=== PATIENT | male | born 1945 | race Two or more races ===

== ENCOUNTER 2017-05-21 18:22 | Emergency (ER) | payer MEDICARE, OTHER ==
[2017-05-21 18:30] VITALS: BP 133/55; PULSE 60; TEMP 97.5; BMI 26.4
[2017-05-21] MEDS ORDERED: HEMOQUE TEST 1 EACH EACH ONE (19:30)
--- NOTE | 2017-05-21 19:39 | PDOC ---
History of Present Illness - General History Source: Patient Exam Limitations: No Limitations - History of Present Illness Initial Comments: The patient is a 71 yo M with a past medical history significant for DM who presents from [facility] with a blood sugar of 77. The patient states the practitioner insisted that the patient be brought here. The patient has no complaints at this time. No nausea, vomiting and diarrhea. No chest pain, headache or SOB. The patient was found to have a 99 blood glucose here. The patient denies abdominal pain. <Lani Rosa - Last Filed: 05/21/17 19:42> - General History Source: Patient, Care Provider <Rick Jackman - Last Filed: 05/21/17 19:57> - General Chief Complaint: Blood Sugar Problem Stated Complaint: BLOOD SUGAR PROBLEM Time Seen by Provider: 05/21/17 19:35 Past History <Lani Rosa - Last Filed: 05/21/17 19:42> - Psycho/Social/Smoking Cessation Hx Suicidal Ideation: No Smoking History: Never smoked Hx Alcohol Use: No Drug/Substance Use Hx: No <Rick Jackman - Last Filed: 05/21/17 19:57> - Past Medical History Allergies/Adverse Reactions: Allergies Allergy/AdvReac Type Severity Reaction Status Date / Time ciprofloxacin Allergy Verified 05/21/17 18:26 Home Medications: Ambulatory Orders Unobtainable [Unobtainable] 05/21/17 Review of Systems - Review of Systems Able to Perform ROS?: Yes Comments:: CONSTITUTIONAL: Absent: fever, chills, diaphoresis, generalized weakness, malaise, loss of appetite HEENT: Absent: rhinorrhea, nasal congestion, throat pain, throat swelling, difficulty swallowing, mouth swelling, ear pain, eye pain, visual Changes CARDIOVASCULAR: Absent: chest pain, syncope, palpitations, irregular heart rate, lightheadedness , peripheral edema RESPIRATORY: Absent: cough, shortness of breath, dyspnea with exertion, orthopnea, wheezing, stridor, hemoptysis GASTROINTESTINAL: Absent: abdominal pain, abdominal distension, nausea, vomiting, diarrhea, constipation, melena, hematochezia GENITOURINARY: Absent: dysuria, frequency, urgency, hesitancy, hematuria, flank pain, genital pain MUSCULOSKELETAL: Absent: myalgia, arthralgia, joint swelling SKIN: Absent: rash, itching, pallor HEMATOLOGIC/IMMUNOLOGIC: Absent: easy bleeding, easy bruising, lymphadenopathy, frequent infections ENDOCRINE: Absent: unexplained weight gain, unexplained weight loss, heat intolerance, cold intolerance NEUROLOGIC: Absent: headache, focal weakness or paresthesias, dizziness, unsteady gait, seizure, mental status changes, bladder or bowel incontinence PSYCHIATRIC: Absent: anxiety, depression, suicidal or homicidal ideation, hallucinations. <Lani Rosa - Last Filed: 05/21/17 19:42> *Physical Exam - Vital Signs Last Vital Signs Temp Pulse Resp BP Pulse Ox 97.5 F L 60 18 133/55 98 05/21/17 18:28 05/21/17 18:28 05/21/17 18:28 05/21/17 18:28 05/21/17 18:28 - Physical Exam Comments: GENERAL: Well developed, well nourished. Awake and alert. No acute distress. Patient is in wheelchair. HEENT: Normocephalic, atraumatic. PERRLA, EOMI. No conjunctival pallor. Sclera are non- icteric. Moist mucous membranes. Oropharynx is clear. NECK: Supple. Full ROM. No JVD. Carotid pulses 2+ and symmetric, without bruits. No thyromegaly. No lymphadenopathy. CARDIOVASCULAR: Regular rate and rhythm. No murmurs, rubs, or gallops. Distal pulses are 2+ and symmetric. PULMONARY: No evidence of respiratory distress. Lungs clear to auscultation bilaterally. No wheezing, rales or rhonchi. ABDOMINAL: Soft. Non-tender. Non-distended. No rebound or guarding. No organomegaly. Normoactive bowel sounds. MUSCULOSKELETAL Normal range of motion at all joints. No bony deformities or tenderness. No CVA tenderness. EXTREMITIES: No cyanosis. No clubbing. No edema. No calf tenderness. Slight contraction of UE. SKIN: Warm and dry. Normal capillary refill. No rashes. No jaundice. NEUROLOGICAL: No gross focal neurological deficits. PSYCHIATRIC: Cooperative. Good eye contact. Appropriate mood and affect. <Lani Rosa - Last Filed: 05/21/17 19:42> - Vital Signs Last Vital Signs Temp Pulse Resp BP Pulse Ox 97.5 F L 60 18 133/55 98 05/21/17 18:28 05/21/17 18:28 05/21/17 18:28 05/21/17 18:28 05/21/17 18:28 <Rick Jackman - Last Filed: 05/21/17 19:57> Medical Decision Making - Medical Decision Making 05/21/17 19:42 Dr. Jackman: The scribe's documentation has been prepared under my direction and personally reviewed by me in its entirery. I confirm that the note above accurately reflects all work, treatment, procedures, and medical decision making performed by me. <Rick Jackman - Last Filed: 05/21/17 19:57> *DC/Admit/Observation/Transfer - Attestations Scribe Attestion: Documentation prepared by Lani Rosa, acting as medical driver for Rick Jackman MD/DO. <Lani Rosa - Last Filed: 05/21/17 19:42> - Discharge Dispostion Admit: No <Rick Jackman - Last Filed: 05/21/17 19:57> Diagnosis at time of Disposition: Encounter for medical screening examination - Discharge Dispostion Disposition: HOME Condition at time of disposition: Stable - Referrals Referrals: Cesar Sutherland MD [Primary Care Provider] - - Patient Instructions Printed Discharge Instructions: How to Check Your Blood Glucose Print Language: LIBYAN
== END 2017-05-21 19:51 | disposition home or self-care (01) ==
LOC: JER 18:22
DX: Z01.89 Encounter for other specified special examinations (principal); E11.9 Type 2 diabetes mellitus without complications
CPT/HCPCS: 99282-25

== ENCOUNTER 2018-09-15 14:42 | Emergency (ER) | payer MEDICARE, OTHER ==
--- NOTE | 2018-09-15 15:31 | PDOC ---
History of Present Illness - General Chief Complaint: Pain Stated Complaint: PCP REFERRED Time Seen by Provider: 09/15/18 15:04 History Source: Patient Exam Limitations: Language Barrier - History of Present Illness Initial Comments: 72 yo M w a hx of Neurogenic bladder, HTN, quadriplegia - accident 2003, T2DM, IVC filter, suprapubic catheter presents to the [facility] ER with a distended abdomen. He had a a KUB x-ray done at [facility] on August 26 which showed he had multiple dilated large and small bowel loops and that volvulus or obstruction could not be eliminated. He was called today by his primary care doc who said he needs to goto the [facility] ER to get a CT scan and a surgical consult. [facility] accidentally took him here to [facility]. He complains of abdominal pain which radiates to his back that has been ongoing for the past month. He is paralyzed from the waist down. His aid who is at bedside states that he had a normal bowel movement this morning, 3 bowel movements yesterdaym and 2 bowel movements on Thursday. The patient still has abdominal pain despite so many bowel movements which are normal in consistency. He denies any chest pain, SOB, or difficulty breathing. Denies having a headache or blurry vision. PCP: Cesar Sutherland Allergies: Ciprofloxacin, "Possibly penicillin and some anesthetic" patient and aid not sure. Meds Baclofen - 10 mg TID Lisinopril - 10 mg daily Tamsulosin - 4 mg daily Omeprazole - 20 mg daily Aspirin - 81 mg daily Metoprolol - 50 mg daily Past History - Past Medical History Allergies/Adverse Reactions: Allergies Allergy/AdvReac Type Severity Reaction Status Date / Time ciprofloxacin Allergy Verified 09/15/18 19:38 Home Medications: Ambulatory Orders Baclofen 10 mg PO TID 09/15/18 Lisinopril 10 mg PO DAILY 09/15/18 Metoprolol Succinate [Toprol Xl] 50 mg PO DAILY 09/15/18 Omeprazole 20 mg PO DAILY 09/15/18 Tamsulosin HCl [Flomax] 0.4 mg PO DAILY 09/15/18 - Suicide/Smoking/Psychosocial Hx Smoking History: Never smoked Hx Alcohol Use: No Drug/Substance Use Hx: No Review of Systems - Review of Systems Able to Perform ROS?: No *Physical Exam - Physical Exam Comments: GENERAL: Well-appearing, well-nourished. No apparent distress. HEENT: Normocephalic, atraumatic. PERRL, EOM intact. CARDIOVASCULAR: Normal S1, S2. Regular rate and rhythm. PULMONARY: Clear to auscultation bilaterally. ABDOMINAL: Diffusely tender, significantly distended. No rebound or guarding. High pitched hyperactive bowel sounds. EXTREMITIES: Patient cannot move lower extremities - paralyzed from waste down. Normal pulses at ankle. SKIN: Warm, dry. No rash NEUROLOGICAL: No focal neurological deficits. ED Treatment Course - LABORATORY CBC & Chemistry Diagram: 09/15/18 16:05 09/15/18 20:00 - RADIOLOGY Radiology Studies Ordered: Category Date Time Status ABDOMEN & PELVIS CT W/WO CONTR [CT] Stat CT Scan 09/15/18 15:29 Ordered Medical Decision Making - Medical Decision Making 72 yo M w a hx of HTN, quadriplegia, T2DM, IVC filter, suprapubic catheter presents to the [facility] ER with a distended abdomen. He had a a KUB x-ray done at [facility] on August 26 which showed he had multiple dilated large and small bowel loops and that volvulus or obstruction could not be eliminated. DD includes but not limited to: SBO, LBO, volvulus, Obstructing mass, hernia, Constipation Plan: Cbc, Cmp, Lactic, INR, PT/PTT, type and screen, EKG, CTAP, re-assess. CTAP showed no obstruction but a significant amount of stool in the vault with rectosigmoid distension. Kactic was elevated. Giving a liter of fluid. Sent a repeat CMP and lactic. If better will DC. repeat lactic dropped to 0.7 *DC/Admit/Observation/Transfer Diagnosis at time of Disposition: Abdominal pain, Abdominal distension, Constipation - Discharge Dispostion Disposition: HOME Condition at time of disposition: Improved Decision to Admit order: No - Referrals Referrals: Mansi Sutherland MD [Primary Care Provider] - - Patient Instructions Printed Discharge Instructions: Constipation (Alternative Therapy), Constipation Additional Instructions: You came into the ER with abdominal distension and constipation. We did a cat scan which showed you do not have a small bowel obstruction. Please make sure to schedule an appointment with your primary care doctor in the next 3 to 5 days to make sure you are getting better and your abdominal pain is under control. Come back to the ER if your pain worsens, you can't goto the bathroom, get a fever, or have any other new or worsening concerns. Thank you for coming to the [facility] ER. We hope you feel better soon! Print Language: BURMESE - Post Discharge Activity
[2018-09-15 15:36] VITALS: BP 156/75; PULSE 51; TEMP 97.4; BMI 26.4
[2018-09-15 16:26] LABS: BASO % 0.8 % (0-2.0); EOS % 15.9 % (0-4.5); HEMATOCRIT 37.4 % (35.4-49); HEMOGLOBIN 12.7 GM/dL (11.7-16.9); LYMPH % 26.1 % (8-40); MCH 27.7 pg (25.7-33.7); MCHC 34.1 g/dl (32.0-35.9); MEAN CELL VOLUME 81.3 fl (80-96); MEAN PLT VOLUME 6.7 fl (7.5-11.1); MONO % 13.2 % (3.8-10.2); PLATELET COUNT 164 K/MM3 (134-434); RBC 4.59 M/mm3 (4.00-5.60); RDW 16.3 % (11.9-15.9)
[2018-09-15 16:39] LABS: INR 0.97 (0.83-1.09); PROTHROMBIN TIME (PATIENT) 11.5 SEC (9.7-13.0)
[2018-09-15 16:42] LABS: ACTIVATED PTT 29.7 SECONDS (25.2-36.5)
[2018-09-15 16:52] LABS: ALBUMIN 3.2 g/dl (3.4-5.0); ALK PHOS 126 U/L (45-117); ANION GAP 8 MMOL/L (8-16); BILIRUBIN,TOTAL 0.5 mg/dL (0.2-1); BLOOD UREA NITROGEN 31 mg/dL (7-18); CALCIUM 8.7 mg/dL (8.5-10.1); CHLORIDE 103 mmol/L (98-107); CO2 27 mmol/L (21-32); CREATININE 1.4 mg/dL (0.55-1.3); GLUCOSE,RANDOM 125 mg/dL (74-106); POTASSIUM 4.8 mmol/L (3.5-5.1); SGOT/AST 23 U/L (15-37); SGPT/ALT 27 U/L (13-61); SODIUM 138 mmol/L (136-145); TOT PROT 6.6 g/dl (6.4-8.2)
[2018-09-15] MEDS ORDERED: SODIUM CHLORIDE 0.9% 500 ML INFUS.BAG IV ONE (18:42)
[2018-09-15] MEDS ORDERED: ACETAMINOPHEN 1000 MG/100 ML VIAL (NON FORMULARY) IVPB ONE (18:42)
--- NOTE | 2018-09-15 18:44 | PDOC ---
Attending Attestation - Resident Resident Name: Heriberto Ochoa - ED Attending Attestation I have performed the following: I have examined & evaluated the patient, The case was reviewed & discussed with the resident, I agree w/resident's findings & plan, Exceptions are as noted - HPI HPI: 09/15/18 18:42 72 M with h/o Neurogenic bladder, HTN, quadriplegia - accident 2004, T2DM, IVC filter, suprapubic catheter, presenting to ED with abdominal distention and pain. Pt states that his abdomen has been distended for several weeks now. Denies N/V. Endorses daily BMs that are normal. He reports lower abdominal cramping pain. No issues with suprapubic cath, states it is draining appropriately. No F/C. No CP/SOB. - Physicial Exam PE: 09/15/18 18:43 "GENERAL: Awake, alert, and fully oriented, in no acute distress. HEAD: No signs of trauma EYES: PERRLA, EOMI, sclera anicteric, conjunctiva clear ENT: Auricles normal inspection, hearing grossly normal, nares patent, oropharynx clear without exudates. Moist mucosa NECK: Nontender, no stepoffs, Normal ROM, supple, no lymphadenopathy, JVD, or masses LUNGS: Breath sounds equal, clear to auscultation bilaterally. No wheezes, and no crackles HEART: Regular rate and rhythm, normal S1 and S2, no murmurs, rubs or gallops ABDOMEN: + distended, tympanitic, mild suprapubic TTP, suprapubic cath in place , No guarding, no rebound. No masses EXTREMITIES: Normal range of motion, no edema. No clubbing or cyanosis. No cords, erythema, or tenderness NEUROLOGICAL: Cranial nerves II through XII intact SKIN: Warm, Dry, normal turgor, no rashes or lesions noted. - Medical Decision Making 09/15/18 18:43 72 M with abdominal distention and cramps. Pt with no vomiting, having normal BMs. SBO unlikely. However, exam with distention and tympany. - Labs - CTAP - IVF, tylenol 09/15/18 19:31 Initial labs notable for mild MARTINEZ and lactate 2.3 CT with no acute process, retained stool. Will tx with miralax Pt given 1L NS Will recheck labs Pt signed out to oncoming attending, pending repeat labs and re-evaluation.
[2018-09-15] MEDS ORDERED: ACETAMINOPHEN INJECTION 100 ML IVPB ONE (18:52)
[2018-09-15] MEDS ORDERED: SODIUM PHOSPHATE/NA BIPHOS 133 ML ENEMA PR ONE (19:29)
[2018-09-15] MEDS ORDERED: POLYETHYLENE GLYCOL 3350 119 GM BTL PO ONE (19:32)
[2018-09-15 20:44] LABS: ALK PHOS 117 U/L (45-117); ANION GAP 9 MMOL/L (8-16); BILIRUBIN,TOTAL 0.4 mg/dL (0.2-1); BLOOD UREA NITROGEN 31 mg/dL (7-18); CHLORIDE 104 mmol/L (98-107); CO2 26 mmol/L (21-32); CREATININE 1.3 mg/dL (0.55-1.3); GLUCOSE,RANDOM 94 mg/dL (74-106); POTASSIUM 4.4 mmol/L (3.5-5.1); SGOT/AST 19 U/L (15-37); SGPT/ALT 23 U/L (13-61); SODIUM 138 mmol/L (136-145); TOT PROT 5.9 g/dl (6.4-8.2)
--- NOTE | 2018-09-16 10:29 | EKG ---
Test Reason : Blood Pressure : / mmHG Vent. Rate : 052 BPM Atrial Rate : 052 BPM P-R Int : 156 ms QRS Dur : 094 ms QT Int : 434 ms P-R-T Axes : 054 054 134 degrees QTc Int : 403 ms POOR DATA QUALITY, INTERPRETATION MAY BE ADVERSELY AFFECTED SINUS BRADYCARDIA T WAVE ABNORMALITY, CONSIDER LATERAL ISCHEMIA ABNORMAL ECG NO PREVIOUS ECGS AVAILABLE Confirmed by FADUMO CHIU, JESSICA ([id number]) on 09/16/2018 10:28:55 AM Referred By: Confirmed By:JESSICA THORNE MD
== END 2018-09-16 00:03 | disposition home or self-care (01) ==
LOC: JER 14:42
PROC: 3E033NZ Introduction of Analgesics, Hypnotics, Sedatives into Peripheral Vein, Percutaneous Approach (ICD-10-PCS; principal; 2018-09-15)
DX: R14.0 Abdominal distension (gaseous) (principal); R10.9 Unspecified abdominal pain; K59.00 Constipation, unspecified; I10 Essential (primary) hypertension; G82.50 Quadriplegia, unspecified; E11.9 Type 2 diabetes mellitus without complications
CPT/HCPCS: 36415; 74178-TC; 80053; 83605; 85025; 85610; 85730; 86850; 86900; 86901; 93005; 93010; 99284-25; J0131

== ENCOUNTER 2019-06-06 12:29 | Inpatient (IN) | payer MEDICARE, OTHER ==
--- NOTE | 2019-06-06 12:50 | PDOC ---
Rapid Medical Evaluation Chief Complaint: Wound Time Seen by Provider: 06/06/19 12:48 Medical Evaluation: Allergies Allergy/AdvReac Type Severity Reaction Status Date / Time ciprofloxacin Allergy Verified 09/15/18 19:38 06/06/19 12:48 Patient had brief in-person examination in triage cc:sent from primary physician for infected sacral wound HPI: alert and oriented x 2 even and unlabored breathing wheelchair bound orders: labs and wound culture This patient will proceed to ed for further evaluation Discharge Disposition - Diagnosis Wound infection - Referrals - Patient Instructions - Post Discharge Activity
--- NOTE | 2019-06-06 13:58 | PDOC ---
History of Present Illness - General Chief Complaint: Wound Stated Complaint: WOUND CARE Time Seen by Provider: 06/06/19 12:48 Exam Limitations: Language Barrier - History of Present Illness Initial Comments: 73 y/o [place]amb[place] speaking male with h/o quadriplegia secondary to an accident 13 years ago and a suprapubic catheter placed 4 years ago here for a sacral ulcer. 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 Dr. Cesar Sutherland is his PMD. As per his aide the ulcer was found about [address] Sutherland who has been been seeing him weekly and last saw him on 06/03 and recommended the patient come to [place]. Patient complains of diffuse pain caused by his wound. He states "it's big and it hurts a lot". He denies any fever, constipation, CP, or other concerns. He is unsure what medications he takes at home. He lives at home and has aides that help him everyday. He denies any known allergies. As per chart review he has a h/o neurogenic bladder, HTN, T2DM, an IVC filter, quadriplegia since 2003, and a suprapubic catheter. 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 06/06/19 16:57 Past History - Past Medical History Allergies/Adverse Reactions: Allergies Allergy/AdvReac Type Severity Reaction Status Date / Time ciprofloxacin Allergy Verified 09/15/18 19:38 Home Medications: Ambulatory Orders Metoprolol Succinate [Toprol Xl] 50 mg PO DAILY 09/15/18 RX: Baclofen 10 mg PO TID 09/15/18 RX: Lisinopril 10 mg PO DAILY 09/15/18 RX: Omeprazole 20 mg PO DAILY 09/15/18 Tamsulosin HCl [Flomax] 0.4 mg PO DAILY 09/15/18 - Suicide/Smoking/Psychosocial Hx Smoking History: Never smoked Have you smoked in the past 12 months: No Hx Alcohol Use: No Drug/Substance Use Hx: No Review of Systems - Review of Systems Able to Perform ROS?: No *Physical Exam - Vital Signs Last Vital Signs Temp Pulse Resp BP Pulse Ox 98.2 F 94 H 19 138/63 100 06/06/19 12:46 06/06/19 12:46 06/06/19 12:46 06/06/19 12:46 06/06/19 12:46 - Physical Exam General Appearance: Yes: Mild Distress, Cachetic HEENT: positive: EOMI Neck: positive: Supple Respiratory/Chest: positive: Lungs Clear, Normal Breath Sounds. negative: Rales , Rhonchi, Stridor Cardiovascular: positive: Regular Rhythm, Regular Rate, S1, S2 Extremity: positive: Normal Capillary Refill Integumentary: positive: Other (3x4cm stage IV sacral ulcer with drainage and foul smell ) Neurologic: positive: Other ED Treatment Course - LABORATORY CBC & Chemistry Diagram: 06/06/19 14:42 06/06/19 14:42 Medical Decision Making - Medical Decision Making 06/06/19 14:27 73 y/o [place]amb[place] speaking male with h/o quadriplegia secondary to an accident 13 years ago and a suprapubic catheter placed 4 years ago here for a sacral ulcer for the last month. Patient states he is in a lot of pain. 3x4cm draining sacral ulcer on exam. CBC, CMP, lactic acid, UA, urine culture, wound culture, and blood cultures ordered. 06/06/19 15:49 CBC with elevated WBC at 19. Patient has right sided abd pain on exam. CT abd & pelvis ordered. 06/06/19 16:22 Patient become diaphoretic and hypotensive. Started on 2L of fluid, non- rebreather mask. Patient stabilized, will continue to monitor. 06/06/19 16:[address] called to confirm CT w/ contrast despite creatinine of 1.4. Patient on fluids for hydration, will continue with CT w/contrast. Nurse received a call from patient's stating that patient is allergic to Penicillin. Patient denied any known drug allergies. Patient already had one dose of Zosyn given, now discontinued. Patient did not develop any hives, anaphylaxis, or other signs of allergic reaction. 06/06/19 18:58 CT completed, waiting on final read. Patient's daughter arrived at hospital. Spoke with the daughter and explained the hospital course. Patient signed out to Dr. Genao. *DC/Admit/Observation/Transfer Diagnosis at time of Disposition: Wound infection - Referrals Referrals: Cesar Sutherland MD [Primary Care Provider] - - Patient Instructions - Post Discharge Activity
[2019-06-06] MEDS ORDERED: ACETAMINOPHEN 1000 MG/100 ML VIAL (NON FORMULARY) IVPB ONE (14:19)
[2019-06-06] MEDS ORDERED: ACETAMINOPHEN INJECTION 100 ML IVPB ONE ×2 (14:55→22:58)
[2019-06-06 14:57] LABS: EOS % 1.1 % (0-4.5); HEMATOCRIT 25.8 % (35.4-49); HEMOGLOBIN 7.9 GM/dL (11.7-16.9); LYMPH % 5.4 % (8-40); MCH 20.4 pg (25.7-33.7); MCHC 30.4 g/dl (32.0-35.9); MEAN CELL VOLUME 67.2 fl (80-96); MEAN PLT VOLUME 5.9 fl (7.5-11.1); MONO % 6.3 % (3.8-10.2); NEUT % 86.2 % (42.8-82.8); PLATELET COUNT 736 K/MM3 (134-434); RBC 3.85 M/mm3 (4.00-5.60)
[2019-06-06] MEDS ORDERED: VANCOMYCIN 1 GM in D5W (PRE-DOCKED) 1,000 MG/250 ML IVPB ONE (15:07)
[2019-06-06] MEDS ORDERED: PIPERACILLIN/TAZOB 3.375 GM 3.375 GM in DEXTROSE 5%-WATER - 50 ML IVPB ONE (15:10)
[2019-06-06 15:25] LABS: ALBUMIN 1.8 g/dl (3.4-5.0); BILIRUBIN,TOTAL 0.4 mg/dL (0.2-1); BLOOD UREA NITROGEN 34.5 mg/dL (7-18); CALCIUM 8.4 mg/dL (8.5-10.1); CREATININE 1.4 mg/dL (0.55-1.3); POTASSIUM 4.8 mmol/L (3.5-5.1)
[2019-06-06] MEDS ORDERED: SODIUM CHLORIDE 0.9% 500 ML INFUS.BAG IV ONE ×2 (15:41→16:19)
[2019-06-06 15:43] LABS: ANISOCYTOSIS 2+; MACROCYTOSIS 0; OVALOCYTE 1+; PLATELET ESTIMATE INCREASED
[2019-06-06] MEDS ORDERED: PIPERACILLIN/TAZOB 3.375 GM 3.375 GM/50 ML BAG IVPB ONE (15:56)
--- NOTE | 2019-06-06 16:43 | PDOC ---
Documentation entered by Constantin Gleason SCRIBE, acting as scribe for Ken Chavez MD. Ken Chavez MD: This documentation has been prepared by the Victorino santacruz Elijah, SCRIBE, under my direction and personally reviewed by me in its entirety. I confirm that the documentation accurately reflects all work, treatment, procedures, and medical decision making performed by me. Attending Attestation - Resident Resident Name: Jesus Mejia - ED Attending Attestation I have performed the following: I have examined & evaluated the patient, The case was reviewed & discussed with the resident, I agree w/resident's findings & plan - HPI HPI: 06/06/19 15:15 Patient is a 73 year old male with a significant past medical history of Neurogenic bladder, HTN, quadriplegic, T2DM, IVC filter, suprapubic catheter who presents to the ED with a sacral ulcer lasting for x1 month. Patients ulcer was found a month ago by his PCP and was told x3 days prior to come into the ED. Patient associates some abdominal pain. Allergies: Ciprofloxacin PCP: Dr. Cesar Sutherland - Physicial Exam PE: 06/06/19 15:19 Vitals: Triage vital signs reviewed General Appearance: No acute distress, well nourished, well developed Head: Atraumatic Chest Wall: Nontender Cardiac: Regular rate and rhythm, no murmurs, no rubs, no gallops Lungs: Clear to auscultation bilateral, good air movement bilaterally Back: +Large Sacral Cubic Ulcer stage 4 Abdomen: Soft, nondistended, normal bowel sounds, nontender to palpation Extremities: Full range of motion to all extremities, no cyanosis, clubbing, or edema Skin: Warm and dry, no rashes or lesions, no rash, no petechiae - Medical Decision Making 06/06/19 17:17 73 years old quadriplegic resents to the ED with very large sacral ulcer Patient noted to have an elevated white blood cell count Empiric antibiotic's Zosyn and vancomycin ordered Several hours after antibiotics initiated nurse made aware that patient may have penicillin ALLERGY Patient also with diffuse abdominal discomfort CAT scan abdomen pelvis pending Dr. Higgins to follow-up results patient to be admitted.
[2019-06-06] MEDS ORDERED: VANCOMYCIN 1 GRAM (PRE-DOCKED) 1,000 MG/250 ML BAG IVPB ONE (18:44)
[2019-06-06 19:17] LABS: URINE APPEARANCE TURBID; URINE BILIRUBIN NEGATIVE (NEGATIVE); URINE COLOR YELLOW; URINE GLUCOSE (UA) NEGATIVE (NEGATIVE); URINE KETONE NEGATIVE (NEGATIVE)
[2019-06-06 19:18] LABS: PH,URINE >= 9.0 (5.0-8.0)
[2019-06-06 19:19] LABS: URINE LEUK ESTERASE 3+ (NEGATIVE); URINE NITRITE NEGATIVE (NEGATIVE); URINE PROTEIN 3+ (NEGATIVE)
[2019-06-06 19:20] LABS: EPI CELLS 16.8 /HPF (0-5/HPF); HYALINE CASTS 3089.14 /lpf (0-8); URINE BACTERIA 3599.5 /hpf (NEGATIVE); URINE RBC 29.4 /hpf (0-4)
--- NOTE | 2019-06-06 19:59 | PDOC ---
*Physical Exam - Vital Signs Last Vital Signs Temp Pulse Resp BP Pulse Ox 98.2 F 94 H 19 138/63 100 06/06/19 12:46 06/06/19 12:46 06/06/19 12:46 06/06/19 12:46 06/06/19 12:46 ED Treatment Course - LABORATORY CBC & Chemistry Diagram: 06/06/19 14:42 06/06/19 14:42 - ADDITIONAL ORDERS Additional order review: Laboratory Results 06/06/19 06/06/19 06/06/19 17:31 16:14 15:24 Sodium Potassium Chloride Carbon Dioxide Anion Gap BUN Creatinine Est GFR (CKD-EPI)AfAm Est GFR (CKD-EPI)NonAf POC Glucometer 159 Random Glucose Lactic Acid 1.2 Calcium Total Bilirubin AST ALT Alkaline Phosphatase Total Protein Albumin Urine Color Yellow Urine Appearance Turbid Urine pH >= 9.0 H Ur Specific [place] 1.014 Urine Protein 3+ H Urine Glucose (UA) Negative Urine Ketones Negative Urine Blood 2+ H Urine Nitrite Negative Urine Bilirubin Negative Urine Urobilinogen 1.0 Ur Leukocyte Esterase 3+ H Urine WBC (Auto) 2015.6 Urine RBC (Auto) 29.4 Urine Casts (Auto) 3089.14 U Pathogenic Cast Auto None seen U Epithel Cells (Auto) 16.8 Urine Bacteria (Auto) 3599.5 06/06/19 14:42 Sodium 137 Potassium 4.8 Chloride 106 Carbon Dioxide 22 Anion Gap 9 BUN 34.5 H Creatinine 1.4 H Est GFR (CKD-EPI)AfAm 56.56 Est GFR (CKD-EPI)NonAf 48.80 POC Glucometer Random Glucose 99 Lactic Acid Calcium 8.4 L Total Bilirubin 0.4 AST 18 ALT 19 Alkaline Phosphatase 122 H Total Protein 6.0 L Albumin 1.8 L Urine Color Urine Appearance Urine pH Ur Specific [place] Urine Protein Urine Glucose (UA) Urine Ketones Urine Blood Urine Nitrite Urine Bilirubin Urine Urobilinogen Ur Leukocyte Esterase Urine WBC (Auto) Urine RBC (Auto) Urine Casts (Auto) U Pathogenic Cast Auto U Epithel Cells (Auto) Urine Bacteria (Auto) 06/06/19 06/06/19 16:14 14:42 RBC 3.85 L MCV 67.2 L MCHC 30.4 L RDW 18.0 H MPV 5.9 L D Neutrophils % 86.2 H D Lymphocytes % 5.4 L D Monocytes % 6.3 Eosinophils % 1.1 D Basophils % 1.0 POC Glucometer 159 - Medications Given in the ED: ED Medications Discontinued Medications Generic Name Dose Route Start Last Admin Trade Name Mulu PRN Reason Stop Dose Admin Acetaminophen 1,000 mg 06/06/19 14:19 06/06/19 15:01 Ofirmev Injection - IVPB 06/06/19 14:20 1,000 mg ONCE ONE Administration Piperacillin Sod/Tazobactam 50 mls @ 100 mls/hr 06/06/19 15:10 06/06/19 16:04 Sod 3.375 gm/ Dextrose IVPB 06/06/19 15:39 100 mls/hr ONCE ONE Administration Protocol Sodium Chloride 500 ml 06/06/19 15:41 06/06/19 16:04 Normal Saline - IV 06/06/19 15:42 500 ml ONCE ONE Administration Sodium Chloride 2,000 ml 06/06/19 16:19 06/06/19 16:13 Normal Saline - IV 06/06/19 16:20 2,000 ml ONCE ONE Administration Vancomycin HCl 1,000 mg 06/06/19 15:07 06/06/19 18:59 Vancomycin (Pre-Docked) IVPB 06/06/19 15:08 1,000 mg ONCE ONE Administration Protocol Medical Decision Making - Medical Decision Making 06/06/19 19:59 In [address] to a CT exam of 09/15/2018 interval development of mild right- sided and minimal left-sided hydroureteronephrosis is seen to the level of the urinary bladder. A suprapubic urinary bladder catheter is again seen in place. There is no urinary bladder distention. Rectosigmoid fecal retention is noted which is probably somewhat increased. There is also probable somewhat increased perirectal soft tissue stranding which may be due to stercoral proctitis. Development of several mildly dilated fluid-filled small bowel loops is seen within the left abdomen probably nonobstructive in nature. Correlate clinically and with close follow-up radiography or CT. Interval development of soft tissue ulceration is seen along the right lower pelvis posteriorly with associated development of a 7.5 x 6.3 x 1.4 cm fluid and air containing structure suggestive of abscess formation. Note is also made of associated development of partial erosion of the coccyx and lower sacrum consistent with osteomyelitis. The remainder of the exam demonstrates no obvious interval change. Cholelithiasis. Inferior vena cava filter device in place. Admitting patient to med surg under Dr. Taylor 06/06/19 20:50 *DC/Admit/Observation/Transfer Diagnosis at time of Disposition: Wound infection, UTI (urinary tract infection), Osteomyelitis, Abscess - Discharge Dispostion Decision to Admit order: Yes - Referrals Referrals: Cesar Sutherland MD [Primary Care Provider] - - Patient Instructions - Post Discharge Activity
--- NOTE | 2019-06-06 21:05 | PN ---
Teaching Attending Note ATTENDING PHYSICIAN STATEMENT I saw and evaluated the patient. I reviewed the resident's note and discussed the case with the resident. I agree with the resident's findings and plan as documented. Seen and examined; please refer to resident note for further historical information. 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
[2019-06-06] MEDS ORDERED: MEROPENEM 1 GM in DEXTROSE 5%-WATER 100 ML IVPB ONE (21:09)
[2019-06-06] MEDS ORDERED: HEPARIN NA (PORCINE) 5,000 UNITS/ML 1ML VIAL ONE (21:25)
[2019-06-06] MEDS ORDERED: MEROPENEM 1 GM VIAL (RESTRICTED TO ID) IVPB ONE (21:25)
[2019-06-06] MEDS: HEPARIN NA (PORCINE) 5,000 UNITS/ML 1ML VIAL SQ SCH (21:44)
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
[2019-06-06] MEDS: ACETAMINOPHEN 1000 MG/100 ML VIAL (NON FORMULARY) IVPB PRN (23:10)
[2019-06-06] MEDS: SODIUM CHLORIDE 1,000 ML IV SCH (23:10)
[2019-06-06] MEDS: INSULIN SLIDING SCALE (NOVOLOG) 1 VIAL SQ SCH (23:19)
[2019-06-07] MEDS ORDERED: ACETAMINOPHEN INJECTION 100 ML IVPB ONE (05:06)
[2019-06-07] MEDS ORDERED: HEPARIN NA (PORCINE) 5,000 UNITS/ML 1ML VIAL ONE (05:06)
[2019-06-07] MEDS: ACETAMINOPHEN 1000 MG/100 ML VIAL (NON FORMULARY) IVPB PRN (05:17)
[2019-06-07] MEDS: HEPARIN NA (PORCINE) 5,000 UNITS/ML 1ML VIAL SQ SCH ×2 (05:17→18:31)
[2019-06-07] MEDS ORDERED: LIDOCAINE 5% TOPICAL PATCH TP ONE (05:31)
[2019-06-07] MEDS ORDERED: LIDOCAINE 5% TOPICAL PATCH ONE (05:33)
[2019-06-07] MEDS: INSULIN SLIDING SCALE (NOVOLOG) 1 VIAL SQ SCH ×4 (06:00→22:44)
[2019-06-07 07:01] LABS: BASO % 0.3 % (0-2.0); EOS % 1.6 % (0-4.5); HEMATOCRIT 22.2 % (35.4-49); LYMPH % 5.2 % (8-40); MCHC 31.5 g/dl (32.0-35.9); MEAN CELL VOLUME 66.8 fl (80-96); MONO % 4.4 % (3.8-10.2); NEUT % 88.5 % (42.8-82.8); PLATELET COUNT 689 K/MM3 (134-434); RBC 3.32 M/mm3 (4.00-5.60); RDW 17.9 % (11.9-15.9); WHITE BLOOD COUNT 21.9 K/mm3 (4.0-10.0)
[2019-06-07 07:16] LABS: ALBUMIN 1.6 g/dl (3.4-5.0); BILIRUBIN,TOTAL 0.3 mg/dL (0.2-1); BLOOD UREA NITROGEN 30.4 mg/dL (7-18); CREATININE 1.4 mg/dL (0.55-1.3); PHOSPHOROUS 3.2 mg/dL (2.5-4.9); TOT PROT 5.3 g/dl (6.4-8.2)
--- NOTE | 2019-06-07 07:33 | PN ---
Progress Note (short form) - Note Progress Note: UROLOGY CONSULT DICTATED.
[2019-06-07 08:26] LABS: MEAN PLT VOLUME 5.8 fl (7.5-11.1)
--- NOTE | 2019-06-07 09:21 | CONS ---
DATE OF CONSULTATION: DATE OF DICTATION: 06/07/2019 HISTORY OF PRESENT ILLNESS: Patient is a 73-year-old male admitted last night via the emergency room. Patient is a quadriplegic with a neurogenic bladder and a suprapubic tube. He has been getting recurrent urinary tract infections. He does have his suprapubic tube changed every 8 weeks. Patient also has history of diabetes, high blood pressure, status post an IVC filter. His PMV examined him yesterday and realized his sacral ulcer is worsening, with a large amount of necrotic tissue. The ulcer is staged as a 4. Patient has had multiple debridements, but the ulcer has been expanding. He is also complaining of diffuse abdominal pain. The patient states that after a bowel movement the ulcer gets contaminated. He denies any fever or chills. The patient has been advised to undergo a diverting colostomy, but the family is considering this. The patient was scheduled to see me this Thursday but is admitted to the hospital. On admission, his white count is 19,000. BUN and creatinine are within normal limits. A CT scan revealed bilateral hydroureteronephrosis, right greater than left. The patient is allergic to multiple medications including CIPRO, ZOSYN, and PENICILLIN. He had a blood pressure of 138/63 in the emergency room. His temperature was 98.2, pulse oximetry 100%. Again, the patient's hemoglobin and hematocrit were 7.9/25.8. His BUN and creatinine were 35/1.4, respectively. Liver enzymes were all within normal limits. The urine was cloudy and positive for blood but negative for nitrites. IMPRESSION: Impression at present is stage IV sacral ulcer, possible purulent collection in his right lower quadrant, bilateral hydroureteronephrosis most likely secondary to a thick bladder wall. Will recommend a cystoscopy, bilateral retrograde pyelograms, and possible bilateral double-J stents. Once the medically stable, will also recommend a diuretic nuclear renal scan to rule out if the obstruction is significant or only anatomical. Will follow with you. GLENN GUEVARA M.D. [id number]
--- NOTE | 2019-06-07 09:30 | EKG ---
Test Reason : Blood Pressure : / mmHG Vent. Rate : 091 BPM Atrial Rate : 091 BPM P-R Int : 118 ms QRS Dur : 094 ms QT Int : 372 ms P-R-T Axes : 079 098 072 degrees QTc Int : 457 ms NORMAL SINUS RHYTHM RIGHTWARD AXIS BORDERLINE ECG Confirmed by Roberto Carlos Carrasco MD ([id number]) on 06/07/2019 9:29:52 AM Referred By: Confirmed By:Roberto Carlos Carrasco MD
[2019-06-07] MEDS ORDERED: VANCOMYCIN HCL 1,250 MG in DEXTROSE 5%-WATER - 250 ML IVPB ONE (10:10)
[2019-06-07] MEDS ORDERED: DOCUSATE SODIUM 100 MG CAPSULE (FP) PO PRN (10:15)
[2019-06-07] MEDS: POLYETHYLENE GLYCOL 3350 119 GM BTL PO SCH ×2 (11:26→22:41)
[2019-06-07 13:14] LABS: ANISOCYTOSIS 0; MACROCYTOSIS 0; PLATELET ESTIMATE INCREASED; TARGET CELLS 1+
--- NOTE | 2019-06-07 13:57 | CON.ID ---
Consult Consult Specialty:: infectious diseases Referred by:: hospitalist Reason for Consultation:: infection wounds - History of Present Illness Chief Complaint: not feeling well History of Present Illness: 73 year old male with past medical history of quadriplegia, neurogenic bladder with a suprapublic catheter placed, hypertension, type 2 DM, IVC filter, who presented the ED after his primary care doctor recommended he come to the ED for a worsening sacral ulcer that has been progressing over the course of a month from stage 1 to stage 4. Has had multiple debridements and ulcer still ulcer is not healing patient has been having diffuse abd pain . He denies any fevers, chills, chest pain, shortness of breath, nausea, vomiting, lethargy. As per the daughter who was at bedside, she denies any changes to his mental status. - History Source History Provided By: Patient, Medical Record Limitations to Obtaining History: Poor Historian - Alcohol/Substance Use Hx Alcohol Use: No - Smoking History Smoking history: Never smoked Have you smoked in the past 12 months: No Home Medications - Allergies Allergies/Adverse Reactions: Allergies Allergy/AdvReac Type Severity Reaction Status Date / Time ciprofloxacin Allergy Verified 09/15/18 19:38 piperacillin [From Zosyn] Allergy Verified 06/06/19 20:07 tazobactam [From Zosyn] Allergy Verified 06/06/19 20:07 Penicillins AdvReac Verified 06/06/19 19:34 - Home Medications Home Medications: Ambulatory Orders Gabapentin 100 mg PO PRN PRN 06/06/19 Omeprazole 20 mg PO DAILY 06/06/19 Review of Systems - Review of Systems Constitutional: reports: No Symptoms Eyes: reports: No Symptoms HENT: reports: No Symptoms Neck: reports: No Symptoms Cardiovascular: reports: No Symptoms Respiratory: reports: No Symptoms Gastrointestinal: reports: Abdominal Pain Genitourinary: reports: No Symptoms Musculoskeletal: reports: No Symptoms Integumentary: reports: No Symptoms Neurological: reports: No Symptoms Endocrine: reports: No Symptoms Hematology/Lymphatic: reports: No Symptoms Psychiatric: reports: No Symptoms Physical Exam Vital Signs: Vital Signs Temperature 98.5 F 06/07/19 13:50 Pulse Rate 82 06/07/19 13:50 Respiratory Rate 16 06/07/19 13:50 Blood Pressure 168/72 06/07/19 13:50 O2 Sat by Pulse Oximetry (%) 99 06/07/19 13:50 Constitutional: Yes: Mild Distress Neck: Yes: Supple Cardiovascular: Yes: Regular Rate and Rhythm Respiratory: Yes: Regular, CTA Bilaterally Gastrointestinal: Yes: Normal Bowel Sounds, Soft, Tenderness Musculoskeletal: Yes: WNL Extremities: Yes: WNL Wound/Incision: Yes: Other (sacral ulcer) Neurological: Yes: Alert Psychiatric: Yes: Alert Labs: CBC, BMP 06/07/19 06:35 06/07/19 06:35 Imaging - Results Cat Scan: Report Reviewed, Image Reviewed MRI: Report Reviewed, Image Reviewed Assessment/Plan 73 year old male with past medical history of quadriplegia, neurogenic bladder with a suprapublic catheter placed, hypertension, type 2 DM, IVC filter admitted for management of his stage 4 sacral ulcer. Stage 4 Sacral Ulcer R pelvis abcess Bacteriuria Hydronephrosis T2DM Constipation Anemia Quadriplegia plan await for all cx reports meropenam wound care close watch rest as per the team
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
[2019-06-07] MEDS ORDERED: MEROPENEM 500 MG in DEXTROSE 5%-WATER 100 ML IVPB SCH (16:10)
[2019-06-07 17:41] VITALS: BMI 21.1
[2019-06-07] MEDS: LIDOCAINE PATCH REMOVAL MC SCH ×2 (18:01→22:42)
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
[2019-06-07] MEDS ORDERED: SENNOSIDES 8.6MG TABLET (FP) PO SCH (22:00)
[2019-06-07] MEDS ORDERED: ACETAMINOPHEN 325 MG TABLET (FP) PO ONE (22:29)
[2019-06-07] MEDS: SODIUM CHLORIDE 1,000 ML IV SCH (22:47)
[2019-06-08] MEDS: MEROPENEM 500 MG in DEXTROSE 5%-WATER 100 ML IVPB SCH ×3 (04:49→17:44)
[2019-06-08 06:42] LABS: BASO % 0.3 % (0-2.0); EOS % 1.7 % (0-4.5); HEMATOCRIT 21.7 % (35.4-49); LYMPH % 7.4 % (8-40); MCH 21.2 pg (25.7-33.7); MCHC 31.9 g/dl (32.0-35.9); MEAN CELL VOLUME 66.4 fl (80-96); MONO % 6.1 % (3.8-10.2); NEUT % 84.5 % (42.8-82.8); PLATELET COUNT 638 K/MM3 (134-434); RBC 3.27 M/mm3 (4.00-5.60); RDW 18.1 % (11.9-15.9); WHITE BLOOD COUNT 19.2 K/mm3 (4.0-10.0)
[2019-06-08 06:54] LABS: INR 1.26 (0.83-1.09); PROTHROMBIN TIME (PATIENT) 14.9 SEC (9.7-13.0)
[2019-06-08 06:56] LABS: ACTIVATED PTT 27.5 SECONDS (25.2-36.5)
[2019-06-08] MEDS: INSULIN SLIDING SCALE (NOVOLOG) 1 VIAL SQ SCH ×4 (06:56→21:52)
[2019-06-08 08:00] LABS: BLOOD UREA NITROGEN 30.9 mg/dL (7-18); CALCIUM 8.3 mg/dL (8.5-10.1); CREATININE 1.5 mg/dL (0.55-1.3); PHOSPHOROUS 3.9 mg/dL (2.5-4.9); POTASSIUM 4.2 mmol/L (3.5-5.1)
[2019-06-08] MEDS ORDERED: MEROPENEM 1 GM in DEXTROSE 5%-WATER 100 ML IVPB SCH (08:00)
--- NOTE | 2019-06-08 08:02 | CONSULT ---
- Consultation REQUESTING PROVIDER: CONSULT REQUEST: We have been asked to surgically evaluate this patient for decubitus ulcer PCP:Donte Varma HISTORY OF PRESENT ILLNESS: 73yo M was consulted to surgery for evaluation of sacral decubitus ulcer. Pt has past medical history of quadriplegia, neurogenic bladder with a suprapublic catheter placed, hypertension, type 2 DM, IVC filter, who presented the ED after his primary care doctor recommended he come to the ED for a worsening sacral ulcer that has been progressing over the course of a month from stage 1 to stage 4. Has had multiple debridements and ulcer has been expanding. The patient states that he has been having diffuse abdominal pain and constipation. Stated that he has pain around the site of the sacral ulcer and noted that he had been afraid to have a bowel movement as he feels that his sacral ulcer would be worsened. Last bowel movement was 3 days ago. He denies any fevers, chills, chest pain, shortness of breath, nausea, vomiting, lethargy. Home Medications Medication Instructions Recorded Gabapentin 100 mg PO PRN PRN 06/06/19 Omeprazole 20 mg PO DAILY 06/06/19 Allergies Allergy/AdvReac Type Severity Reaction Status Date / Time ciprofloxacin Allergy Verified 09/15/18 19:38 piperacillin [From Zosyn] Allergy Verified 06/06/19 20:07 tazobactam [From Zosyn] Allergy Verified 06/06/19 20:07 Penicillins AdvReac Verified 06/06/19 19:34 PHYSICAL EXAM: GENERAL: Awake, alert, and fully oriented, in no acute distress. HEAD: Normal with no signs of trauma. EYES: PERRL, sclera anicteric, conjunctiva clear. NECK: Normal ROM, supple without lymphadenopathy, JVD, or masses. BACK: Stage 4 sacral ulcer 8 x 10 cm with necrotic tissue on superior aspect, foul smelling with serous drainage. LUNGS: Breathing comfortably. No accessory muscle use. HEART: Regular rate and rhythm. ABDOMEN: Soft, nontender, not distended, normoactive bowel sounds, no guarding, no rebound, no masses. No organomegaly. MUSCULOSKELETAL: limited ROM of all joints. contractions of all 4 limbs. LOWER EXTREMITIES: No peripheral edema. NEUROLOGICAL: Normal speech, gait not observed. PSYCH: Cooperative. Good eye contact. Appropriate mood and affect. SKIN: Warm, dry, normal turgor, no rashes or lesions noted. Vital Signs Temperature 98.2 F 06/08/19 06:00 Pulse Rate 103 H 06/08/19 06:00 Respiratory Rate 18 06/08/19 06:00 Blood Pressure 124/50 L 06/08/19 06:00 O2 Sat by Pulse Oximetry (%) 100 06/07/19 21:00 Lab Results WBC 21.9 K/mm3 (4.0-10.0) H 06/07/19 06:35 RBC 3.32 M/mm3 (4.00-5.60) L 06/07/19 06:35 Hgb 7.0 GM/dL (11.7-16.9) L 06/07/19 06:35 Hct 22.2 % (35.4-49) L 06/07/19 06:35 MCV 66.8 fl (80-96) L 06/07/19 06:35 MCHC 31.5 g/dl (32.0-35.9) L 06/07/19 06:35 RDW 17.9 % (11.9-15.9) H 06/07/19 06:35 Plt Count 689 K/MM3 (134-434) H 06/07/19 06:35 Sodium 141 mmol/L (136-145) 06/07/19 06:35 Potassium 4.0 mmol/L (3.5-5.1) 06/07/19 06:35 Chloride 111 mmol/L (98-107) H 06/07/19 06:35 Carbon Dioxide 21 mmol/L (21-32) 06/07/19 06:35 Anion Gap 9 MMOL/L (8-16) 06/07/19 06:35 BUN 30.4 mg/dL (7-18) H 06/07/19 06:35 Creatinine 1.4 mg/dL (0.55-1.3) H 06/07/19 06:35 Random Glucose 113 mg/dL (74-106) H 06/07/19 06:35 Calcium 8.0 mg/dL (8.5-10.1) L 06/07/19 06:35 INR 1.26 (0.83-1.09) H 06/08/19 06:00 Problem List - Problems (1) Sacral decubitus ulcer, stage IV Assessment/Plan: Plan -pt will need sacral debridement in the OR, will plan to debride this afternoon in the OR -npo, IV fluids Case discussed with Dr. Quintero who agrees with plan Code(s): L89.154 - PRESSURE ULCER OF SACRAL REGION, STAGE 4
[2019-06-08 08:22] LABS: MEAN PLT VOLUME 5.8 fl (7.5-11.1)
[2019-06-08 08:23] LABS: HEMOGLOBIN 6.9 GM/dL (11.7-16.9)
[2019-06-08] MEDS ORDERED: PROPOFOL 20 ML ONE ×2 (12:49→14:04)
[2019-06-08] MEDS ORDERED: MIDAZOLAM HCL 2 MG/2 ML SINGLE DOSE VIAL ONE (12:50)
[2019-06-08] MEDS ORDERED: MEROPENEM 500 MG VIAL (RESTRICTED TO ID) IVPB ONE (13:10)
[2019-06-08] MEDS ORDERED: oxyCODONE HCL 5 MG TABLET PO PRN (13:55)
[2019-06-08] MEDS ORDERED: LACTATED RINGERS SOLUTION 1,000 ML IV SCH (14:00)
[2019-06-08] MEDS: POLYETHYLENE GLYCOL 3350 119 GM BTL PO SCH ×2 (14:03→22:00)
--- NOTE | 2019-06-08 14:32 | OP ---
Operative Note - Note: Operative Date: 06/08/19 Pre-Operative Diagnosis: Sacral decubitus ulcer Operation: Debridement of sacral ulcer Post-Operative Diagnosis: Same as Pre-op Surgeon: Chapo Quintero Patient Financial Services Specialist: Heriberto Elam Anesthesia: General Specimens Removed: Fluid culture and tissue sample sent Operative Report Dictated: Yes
--- NOTE | 2019-06-08 14:33 | SURG ---
Surgery Senior Clinical Data Coordinator Note Senior Clinical Data Coordinator: Heriberto Elam PA-C Date of Service: 06/08/19 Diagnosis: Sacral decubitus ulcer Procedure: Debridement of sacral decubitus ulcer I was present for the entirety of the operative procedure. For further detail, please refer to operative report. Visit type - Case Type Case Type: ED Admission - Emergency Emergency Visit: Yes ED Registration Date: 06/06/19 Care time: The patient presented to the Emergency Department on the above date and was hospitalized for further evaluation of their emergent condition. - New patient This patient is new to me today: No - Critical Care Critical Care patient: No
[2019-06-08] MEDS ORDERED: SODIUM CHLORIDE 1,000 ML IV SCH (15:11)
[2019-06-08] MEDS ORDERED: PT OWN MED DRAWER 7, Y5N ONE (17:27)
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
[2019-06-08] MEDS: LACTATED RINGERS SOLUTION 1,000 ML IV SCH (17:42)
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
[2019-06-08] MEDS: SENNOSIDES 8.6MG TABLET (FP) PO SCH (21:56)
[2019-06-08] MEDS: HEPARIN NA (PORCINE) 5,000 UNITS/ML 1ML VIAL SQ SCH (21:56)
[2019-06-08] MEDS ORDERED: LIDOCAINE PATCH REMOVAL MC SCH (22:00)
[2019-06-09] MEDS: MEROPENEM 500 MG in DEXTROSE 5%-WATER 100 ML IVPB SCH ×2 (04:46→17:32)
[2019-06-09 06:13] LABS: BASO % 0.3 % (0-2.0); EOS % 2.2 % (0-4.5); HEMATOCRIT 21.2 % (35.4-49); LYMPH % 8.9 % (8-40); MCH 20.8 pg (25.7-33.7); MCHC 30.9 g/dl (32.0-35.9); MEAN CELL VOLUME 67.2 fl (80-96); MONO % 5.8 % (3.8-10.2); NEUT % 82.8 % (42.8-82.8); PLATELET COUNT 572 K/MM3 (134-434); RBC 3.15 M/mm3 (4.00-5.60); WHITE BLOOD COUNT 14.7 K/mm3 (4.0-10.0)
[2019-06-09 06:25] LABS: MEAN PLT VOLUME 5.7 fl (7.5-11.1)
[2019-06-09 06:26] LABS: HEMOGLOBIN 6.6 GM/dL (11.7-16.9)
[2019-06-09 06:40] LABS: ALBUMIN 1.7 g/dl (3.4-5.0); BILIRUBIN,TOTAL 0.4 mg/dL (0.2-1); BLOOD UREA NITROGEN 25.8 mg/dL (7-18); CALCIUM 8.3 mg/dL (8.5-10.1); CREATININE 1.2 mg/dL (0.55-1.3); MAGNESIUM 1.9 mg/dL (1.8-2.4); PHOSPHOROUS 4.1 mg/dL (2.5-4.9); POTASSIUM 3.7 mmol/L (3.5-5.1); TOT PROT 5.5 g/dl (6.4-8.2)
[2019-06-09] MEDS: INSULIN SLIDING SCALE (NOVOLOG) 1 VIAL SQ SCH ×4 (06:40→22:51)
[2019-06-09] MEDS: HEPARIN NA (PORCINE) 5,000 UNITS/ML 1ML VIAL SQ SCH ×3 (07:00→22:48)
--- NOTE | 2019-06-09 08:31 | PN ---
Progress Note (short form) - Note Progress Note: Surgery POD #1 sacral debridement. Patient seen and examined at bedside. Nursing reports no issues overnight. Patient resting comfortably. Vital Signs Temp 98.6 F 06/09/19 06:00 Pulse 92 H 06/09/19 06:00 Resp 16 06/09/19 06:00 BP 159/71 06/09/19 06:00 Pulse Ox 97 06/08/19 21:00 Intake & Output 06/08/19 06/08/19 06/09/19 11:59 23:59 11:59 Intake Total 800 1020 Output Total 500 800 400 Balance -500 0 620 Intake: IV 800 900 Normal Saline - 1,000 ml 900 @ 75 mls/hr IV ASDIR [facility] Rx#:[id number] S/L 250 Oral 120 Output: Urine 500 800 400 Supra Pubic Tube 500 400 400 Other: Voiding Method Indwelling Catheter Indwelling Catheter Bowel Movement No Weight Measurement Method Built in [facility] CBC, BMP 06/09/19 05:10 06/09/19 05:10 PE: Patient resting comfortably, NAD unlabored resp on RA Sacral wound well debrided with beefy red base, no fibrinous tissue or slough seen, no active d/c or foul odor. B/L LE compartments soft, supple and non-tender. Problem List - Problems (1) Sacral decubitus ulcer, stage IV Assessment/Plan: Surgery POD #1 sacral debridement doing well with low H&H patient scheduled to receive blood today. 1) continue dressings as ordered, pack with Kurlex wet to dry. 2) Trend labs and transfuse PRN- scheduled for blood today- f/u post transfusion labs 3) IV ABX per ID 4) Frequent positioning 5) Off load pressure sensitive areas Evaluation and plan discussed with Dr Quintero Code(s): L89.154 - PRESSURE ULCER OF SACRAL REGION, STAGE 4
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
[2019-06-09] MEDS: POLYETHYLENE GLYCOL 3350 119 GM BTL PO SCH ×2 (12:51→22:48)
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
--- NOTE | 2019-06-09 15:25 | PN ---
Progress Note (short form) - Note Progress Note: ANESTHESIA POSTOP 73 YO MALE POD#1 S/P SACRAL DEBRIDEMENT, [place] Patient in bed. No obvious complaints VSS, Afebrile Continue current care. No anesthetic complications
[2019-06-09] MEDS: oxyCODONE HCL 5 MG TABLET PO PRN ×2 (16:05→23:40)
[2019-06-09] MEDS: LACTATED RINGERS SOLUTION 1,000 ML IV SCH (16:07)
[2019-06-09 17:18] LABS: HEMATOCRIT 25.1 % (35.4-49); HEMOGLOBIN 7.7 GM/dL (11.7-16.9); MCHC 30.8 g/dl (32.0-35.9); MEAN CELL VOLUME 71.5 fl (80-96); PLATELET COUNT 595 K/MM3 (134-434); RBC 3.51 M/mm3 (4.00-5.60); RDW 19.9 % (11.9-15.9); WHITE BLOOD COUNT 16.9 K/mm3 (4.0-10.0)
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
[2019-06-09] MEDS: SENNOSIDES 8.6MG TABLET (FP) PO SCH (22:49)
[2019-06-10] MEDS ORDERED: ACETAMINOPHEN 325 MG TABLET (FP) PO ONE (05:55)
[2019-06-10] MEDS: HEPARIN NA (PORCINE) 5,000 UNITS/ML 1ML VIAL SQ SCH ×3 (05:57→22:52)
[2019-06-10] MEDS: MEROPENEM 500 MG in DEXTROSE 5%-WATER 100 ML IVPB SCH ×2 (05:57→16:33)
[2019-06-10] MEDS: INSULIN SLIDING SCALE (NOVOLOG) 1 VIAL SQ SCH ×4 (05:59→22:52)
[2019-06-10 08:26] LABS: MCHC 31.6 g/dl (32.0-35.9); MEAN CELL VOLUME 69.5 fl (80-96); MEAN PLT VOLUME 5.7 fl (7.5-11.1); PLATELET COUNT 507 K/MM3 (134-434); RBC 3.17 M/mm3 (4.00-5.60); RDW 19.9 % (11.9-15.9); WHITE BLOOD COUNT 12.8 K/mm3 (4.0-10.0)
--- NOTE | 2019-06-10 09:01 | PN ---
Progress Note, Physician History of Present Illness: still with pain improving post debridement - Current Medication List Current Medications: Active Medications Docusate Sodium (Colace -) 100 mg PO BID PRN PRN Reason: CONSTIPATION Heparin Sodium (Porcine) (Heparin -) 5,000 unit SQ TID [facility] Last Admin: 06/10/19 05:57 Dose: 5,000 unit Lactated Ringer's (Lactated Ringers Solution) 1,000 mls @ 125 mls/hr IV ASDIR [facility] Last Admin: 06/09/19 16:07 Dose: 125 mls/hr Meropenem 500 mg/ Dextrose 100 mls @ 200 mls/hr IVPB BID@0500,1700 [facility] Last Admin: 06/10/19 05:57 Dose: 200 mls/hr Insulin Aspart (Novolog Vial Sliding Scale -) 1 vial SQ ACHS [facility]; Protocol Last Admin: 06/10/19 05:59 Dose: Not Given Oxycodone HCl (Roxicodone -) 5 mg PO Q4H PRN PRN Reason: PAIN LEVEL 1-5 Last Admin: 06/09/19 23:40 Dose: 5 mg Polyethylene Glycol (Miralax (For Daily Use) -) 17 gm PO BID [facility] Last Admin: 06/09/19 22:48 Dose: 17 gm Senna (Senna -) 1 tab PO HS [facility] Last Admin: 06/09/19 22:49 Dose: 1 tab - Objective Vital Signs: Vital Signs Temperature 102.3 F H 06/10/19 06:00 Pulse Rate 109 H 06/10/19 06:00 Respiratory Rate 20 06/10/19 06:00 Blood Pressure 141/67 06/10/19 06:00 O2 Sat by Pulse Oximetry (%) 98 06/09/19 21:00 Constitutional: Yes: Calm, Mild Distress Cardiovascular: Yes: S1, S2 Respiratory: Yes: Regular, CTA Bilaterally Gastrointestinal: Yes: Normal Bowel Sounds, Soft Musculoskeletal: Yes: Other Extremities: Yes: Other Neurological: Yes: Alert, Oriented Psychiatric: Yes: Alert, Oriented Labs: CBC, BMP 06/10/19 06:30 INR, PTT INR 1.26 (0.83-1.09) H 06/08/19 06:00 Assessment/Plan 73 year old male with past medical history of quadriplegia, neurogenic bladder with a suprapublic catheter placed, hypertension, type 2 DM, IVC filter admitted for management of his stage 4 sacral ulcer. Stage 4 Sacral Ulcer R pelvis abcess Bacteriuria Hydronephrosis T2DM Constipation Anemia Quadriplegia osteo of the sacrum plan continue abx wound care ret as per the team
[2019-06-10 09:03] LABS: ALBUMIN 1.6 g/dl (3.4-5.0); BILIRUBIN,TOTAL 0.3 mg/dL (0.2-1); CALCIUM 7.9 mg/dL (8.5-10.1); CREATININE 1.2 mg/dL (0.55-1.3); MAGNESIUM 2.1 mg/dL (1.8-2.4); POTASSIUM 4.1 mmol/L (3.5-5.1); TOT PROT 5.2 g/dl (6.4-8.2)
[2019-06-10] MEDS: DOCUSATE SODIUM 100 MG CAPSULE (FP) PO PRN (09:58)
[2019-06-10] MEDS: POLYETHYLENE GLYCOL 3350 119 GM BTL PO SCH ×2 (09:58→22:52)
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
[2019-06-10 12:41] LABS: EPI CELLS 14.6 /HPF (0-5/HPF); HYALINE CASTS 58 /lpf (0-8); PH,URINE 5.5 (5.0-8.0); URINE APPEARANCE Error; URINE BACTERIA 19.3 /hpf (NEGATIVE); URINE BILIRUBIN NEGATIVE (NEGATIVE); URINE COLOR YELLOW; URINE GLUCOSE (UA) NEGATIVE (NEGATIVE); URINE KETONE NEGATIVE (NEGATIVE); URINE LEUK ESTERASE 2+ (NEGATIVE); URINE NITRITE NEGATIVE (NEGATIVE); URINE PROTEIN 2+ (NEGATIVE); URINE RBC 29 /hpf (0-4); URINE UROBILINOGEN 0.2 mg/dL (0.2-1.0); URINE WBC 322 /hpf (0-5)
[2019-06-10] MEDS: LACTATED RINGERS SOLUTION 1,000 ML IV SCH ×2 (15:15→18:07)
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
[2019-06-10 19:03] LABS: HEMATOCRIT 25.8 % (35.4-49); MCH 22.9 pg (25.7-33.7); MCHC 31.2 g/dl (32.0-35.9); MEAN CELL VOLUME 73.2 fl (80-96); PLATELET COUNT 433 K/MM3 (134-434); RBC 3.52 M/mm3 (4.00-5.60); RDW 21.4 % (11.9-15.9); WHITE BLOOD COUNT 13.2 K/mm3 (4.0-10.0)
[2019-06-10] MEDS: oxyCODONE HCL 5 MG TABLET PO PRN (22:53)
[2019-06-10] MEDS: SENNOSIDES 8.6MG TABLET (FP) PO SCH (22:53)
[2019-06-11] MEDS ORDERED: PT OWN MED DRAWER 7, Y5N ONE ×2 (05:51→10:07)
[2019-06-11] MEDS: HEPARIN NA (PORCINE) 5,000 UNITS/ML 1ML VIAL SQ SCH ×3 (05:57→22:01)
[2019-06-11] MEDS: MEROPENEM 500 MG in DEXTROSE 5%-WATER 100 ML IVPB SCH ×2 (05:57→17:20)
[2019-06-11] MEDS: INSULIN SLIDING SCALE (NOVOLOG) 1 VIAL SQ SCH ×4 (06:00→22:01)
[2019-06-11 07:59] LABS: ALBUMIN 1.7 g/dl (3.4-5.0); BILIRUBIN,TOTAL 0.4 mg/dL (0.2-1); BLOOD UREA NITROGEN 16.7 mg/dL (7-18); MAGNESIUM 1.8 mg/dL (1.8-2.4); POTASSIUM 4.2 mmol/L (3.5-5.1); TOT PROT 5.2 g/dl (6.4-8.2)
[2019-06-11 08:00] LABS: HEMATOCRIT 24.9 % (35.4-49); HEMOGLOBIN 8.1 GM/dL (11.7-16.9); MCH 23.5 pg (25.7-33.7); MCHC 32.5 g/dl (32.0-35.9); MEAN CELL VOLUME 72.2 fl (80-96); MEAN PLT VOLUME 5.9 fl (7.5-11.1); PLATELET COUNT 472 K/MM3 (134-434); RBC 3.44 M/mm3 (4.00-5.60); RDW 22.1 % (11.9-15.9); WHITE BLOOD COUNT 11.1 K/mm3 (4.0-10.0)
[2019-06-11] MEDS: LACTATED RINGERS SOLUTION 1,000 ML IV SCH (11:00)
[2019-06-11] MEDS: POLYETHYLENE GLYCOL 3350 119 GM BTL PO SCH ×2 (11:03→22:01)
--- NOTE | 2019-06-11 16:40 | PN ---
Progress Note, Physician History of Present Illness: Pt seen and examined. He is alert, without distress. Denies pain at this time but having low grade fevers , currently 100.5F. No other complaints. Pt's daughter/HCP at bedside. - Current Medication List Current Medications: Active Medications Docusate Sodium (Colace -) 100 mg PO BID PRN PRN Reason: CONSTIPATION Last Admin: 06/10/19 09:58 Dose: 100 mg Heparin Sodium (Porcine) (Heparin -) 5,000 unit SQ TID [facility] Last Admin: 06/11/19 13:16 Dose: 5,000 unit Lactated Ringer's (Lactated Ringers Solution) 1,000 mls @ 125 mls/hr IV ASDIR [facility] Last Admin: 06/10/19 18:07 Dose: 125 mls/hr Meropenem 500 mg/ Dextrose 100 mls @ 200 mls/hr IVPB BID@0500,1700 [facility] Last Admin: 06/11/19 05:57 Dose: 200 mls/hr Insulin Aspart (Novolog Vial Sliding Scale -) 1 vial SQ ACHS [facility]; Protocol Last Admin: 06/11/19 11:37 Dose: Not Given Polyethylene Glycol (Miralax (For Daily Use) -) 17 gm PO BID [facility] Last Admin: 06/11/19 11:03 Dose: 17 gm Senna (Senna -) 1 tab PO HS [facility] Last Admin: 06/10/19 22:53 Dose: 1 tab - Objective Vital Signs: Vital Signs Temperature 100.5 F H 06/11/19 13:00 Pulse Rate 79 06/11/19 13:00 Respiratory Rate 18 06/11/19 13:00 Blood Pressure 164/80 06/11/19 13:00 O2 Sat by Pulse Oximetry (%) 98 06/11/19 08:36 Constitutional: Yes: No Distress, Calm Cardiovascular: Yes: Regular Rate and Rhythm Respiratory: Yes: Regular Gastrointestinal: Yes: Normal Bowel Sounds, Soft Genitourinary: Yes: Other (+SPC) Integumentary: Yes: WNL Wound/Incision: Yes: Dressing Dry and Intact (Sacral ST IV DU dressing intact) Labs: CBC, BMP 06/11/19 06:05 06/11/19 06:05 INR, PTT INR 1.26 (0.83-1.09) H 06/08/19 06:00 Microbiology 06/06/19 15:11 Blood - Peripheral Venous Blood Culture - Final NO GROWTH AFTER 5 DAYS INCUBATION 06/06/19 15:11 Blood - Peripheral Venous Blood Culture - Final NO GROWTH AFTER 5 DAYS INCUBATION 06/08/19 14:00 Coccyx Gram Stain - Final 06/08/19 14:00 Coccyx Wound Culture - Preliminary Proteus Mirabilus - Esbl Produ Pseudomonas Species Group D Strep Or Entero Coccus Group D Strep Or Entero Coccus#2 06/10/19 08:45 Blood - Peripheral Venous Blood Culture - Preliminary NO GROWTH OBTAINED AFTER 24 HOURS, INCUBATION TO CONTINUE FOR 4 DAYS. 06/10/19 08:52 Blood - Peripheral Venous Blood Culture - Preliminary NO GROWTH OBTAINED AFTER 24 HOURS, INCUBATION TO CONTINUE FOR 4 DAYS. 06/06/19 16:43 Wound Gram Stain - Final 06/06/19 16:43 Wound Wound Culture - Final Escherichia Coli Morganella Morganii Enterococcus Faecalis 06/06/19 17:31 Urine - Urine Clean Catch Urine Culture - Final Klebsiella Pneumoniae - Esbl Proteus Mirabilis Morganella Morganii - ....Imaging Cat Scan: Report Reviewed MRI: Report Reviewed Problem List - Problems (1) Osteomyelitis Code(s): M86.9 - OSTEOMYELITIS, UNSPECIFIED (2) Sacral decubitus ulcer, stage IV Code(s): L89.154 - PRESSURE ULCER OF SACRAL REGION, STAGE 4 (3) UTI (urinary tract infection) Code(s): N39.0 - URINARY TRACT INFECTION, SITE NOT SPECIFIED (4) Wound infection Code(s): T14.8XXA - OTHER INJURY OF UNSPECIFIED BODY REGION, INITIAL ENCOUNTER; L08.9 - LOCAL INFECTION OF THE SKIN AND SUBCUTANEOUS TISSUE, UNSP Assessment/Plan Infected Sacral ST IV DU infection/OM s/p debridement POD #2 Rt pelvic abscess/loculation in gluteus UTI Neurogenic bladder with SPC DM Quadriplegia -- Pt with low grade fevers, leukocytosis resolved -- continue Meropenem for now, pt without signs of adverse reaction -- monitor temperatures, cbc -- if fevers persist may need re-evaluation of collection
[2019-06-11] MEDS: ACETAMINOPHEN 325 MG TABLET (FP) PO PRN (17:19)
[2019-06-11] MEDS: DOCUSATE SODIUM 100 MG CAPSULE (FP) PO PRN (17:19)
[2019-06-11] MEDS ORDERED: INSULIN (NOVOLOG) ASPART 100 UNITS/ML 10ML VIAL ONE (20:48)
--- NOTE | 2019-06-11 21:31 | PN ---
Progress Note, Physician History of Present Illness: No new complaints - Current Medication List Current Medications: Active Medications Acetaminophen (Tylenol -) 650 mg PO Q6H PRN PRN Reason: FEVER Last Admin: 06/11/19 17:19 Dose: 650 mg Docusate Sodium (Colace -) 100 mg PO BID PRN PRN Reason: CONSTIPATION Last Admin: 06/11/19 17:19 Dose: 100 mg Heparin Sodium (Porcine) (Heparin -) 5,000 unit SQ TID [facility] Last Admin: 06/11/19 13:16 Dose: 5,000 unit Lactated Ringer's (Lactated Ringers Solution) 1,000 mls @ 125 mls/hr IV ASDIR [facility] Last Admin: 06/11/19 11:00 Dose: 125 mls/hr Meropenem 500 mg/ Dextrose 100 mls @ 200 mls/hr IVPB BID@0500,1700 [facility] Last Admin: 06/11/19 17:20 Dose: 200 mls/hr Insulin Aspart (Novolog Vial Sliding Scale -) 1 vial SQ ACHS [facility]; Protocol Last Admin: 06/11/19 16:53 Dose: Not Given Polyethylene Glycol (Miralax (For Daily Use) -) 17 gm PO BID [facility] Last Admin: 06/11/19 11:03 Dose: 17 gm Senna (Senna -) 1 tab PO HS [facility] Last Admin: 06/10/19 22:53 Dose: 1 tab - Objective Vital Signs: Vital Signs Temperature 100.6 F H 06/11/19 16:48 Pulse Rate 78 06/11/19 16:48 Respiratory Rate 18 06/11/19 16:48 Blood Pressure 171/74 H 06/11/19 16:48 O2 Sat by Pulse Oximetry (%) 98 06/11/19 08:36 Neck: Yes: WNL, Supple Cardiovascular: Yes: WNL, Regular Rate and Rhythm Respiratory: Yes: WNL, Regular, CTA Bilaterally Gastrointestinal: Yes: WNL, Normal Bowel Sounds, Soft Wound/Incision: Yes: Other (stage 4 sacral ulcer) Labs: CBC, BMP 06/11/19 06:05 06/11/19 06:05 INR, PTT INR 1.26 (0.83-1.09) H 06/08/19 06:00 Problem List - Problems (1) Sacral decubitus ulcer, stage IV Assessment/Plan: Osteomyelitis S/P I&D of sacral ulcer Cont IV meropenem/vanco Code(s): L89.154 - PRESSURE ULCER OF SACRAL REGION, STAGE 4 (2) HTN (hypertension) Assessment/Plan: BP elevated May need to dc IVF Code(s): I10 - ESSENTIAL (PRIMARY) HYPERTENSION (3) Neurogenic bladder Assessment/Plan: Cont soriano cath(Suprapubic) Code(s): N31.9 - NEUROMUSCULAR DYSFUNCTION OF BLADDER, UNSPECIFIED (4) Anemia Assessment/Plan: Monitor H/H Code(s): D64.9 - ANEMIA, UNSPECIFIED (5) Diabetes Assessment/Plan: Cont sliding scale w/ coverage Code(s): E11.9 - TYPE 2 DIABETES MELLITUS WITHOUT COMPLICATIONS
[2019-06-11] MEDS: SENNOSIDES 8.6MG TABLET (FP) PO SCH (22:01)
[2019-06-12] MEDS ORDERED: PT OWN MED DRAWER 7, Y5N ONE (04:36)
[2019-06-12] MEDS: MEROPENEM 500 MG in DEXTROSE 5%-WATER 100 ML IVPB SCH (04:44)
[2019-06-12] MEDS: HEPARIN NA (PORCINE) 5,000 UNITS/ML 1ML VIAL SQ SCH ×3 (06:36→21:44)
[2019-06-12] MEDS: INSULIN SLIDING SCALE (NOVOLOG) 1 VIAL SQ SCH ×4 (06:36→21:45)
[2019-06-12 07:56] LABS: BASO % 0.6 % (0-2.0); EOS % 6.5 % (0-4.5); HEMATOCRIT 27.3 % (35.4-49); HEMOGLOBIN 9.1 GM/dL (11.7-16.9); LYMPH % 12.3 % (8-40); MCH 23.8 pg (25.7-33.7); MCHC 33.2 g/dl (32.0-35.9); MEAN CELL VOLUME 71.8 fl (80-96); MONO % 8.6 % (3.8-10.2); PLATELET COUNT 438 K/MM3 (134-434); RDW 22.6 % (11.9-15.9); WHITE BLOOD COUNT 10.8 K/mm3 (4.0-10.0)
[2019-06-12 08:13] LABS: MEAN PLT VOLUME 5.8 fl (7.5-11.1)
[2019-06-12 08:20] LABS: ALBUMIN 1.8 g/dl (3.4-5.0); BILIRUBIN,TOTAL 0.4 mg/dL (0.2-1); BLOOD UREA NITROGEN 12.4 mg/dL (7-18); CALCIUM 8.5 mg/dL (8.5-10.1); POTASSIUM 4.2 mmol/L (3.5-5.1); TOT PROT 5.4 g/dl (6.4-8.2)
[2019-06-12] MEDS: POLYETHYLENE GLYCOL 3350 119 GM BTL PO SCH ×2 (09:53→21:44)
[2019-06-12 10:30] LABS: ANISOCYTOSIS 1+; MACROCYTOSIS 0; OVALOCYTE 1+; PLATELET ESTIMATE NORMAL; TEAR DROP CELLS 1+
--- NOTE | 2019-06-12 13:17 | PN ---
Progress Note, Physician History of Present Illness: Pt is alert and fully responsive, without distress. C/O abdominal discomfort but no n/v/d. Tmax of 101.8F, currently afebrile. No rash or SOB. - Current Medication List Current Medications: Active Medications Acetaminophen (Tylenol -) 650 mg PO Q6H PRN PRN Reason: FEVER Last Admin: 06/11/19 17:19 Dose: 650 mg Docusate Sodium (Colace -) 100 mg PO BID PRN PRN Reason: CONSTIPATION Last Admin: 06/11/19 17:19 Dose: 100 mg Heparin Sodium (Porcine) (Heparin -) 5,000 unit SQ TID [facility] Last Admin: 06/12/19 06:36 Dose: 5,000 unit Lactated Ringer's (Lactated Ringers Solution) 1,000 mls @ 125 mls/hr IV ASDIR [facility] Last Admin: 06/11/19 11:00 Dose: 125 mls/hr Meropenem 500 mg/ Dextrose 100 mls @ 200 mls/hr IVPB BID@0500,1700 [facility] Last Admin: 06/12/19 04:44 Dose: 200 mls/hr Insulin Aspart (Novolog Vial Sliding Scale -) 1 vial SQ [facility]; Protocol Last Admin: 06/12/19 11:27 Dose: Not Given Polyethylene Glycol (Miralax (For Daily Use) -) 17 gm PO BID [facility] Last Admin: 06/12/19 09:53 Dose: 17 gm Senna (Senna -) 1 tab PO HS [facility] Last Admin: 06/11/19 22:01 Dose: 1 tab - Objective Vital Signs: Vital Signs Temperature 98.2 F 06/12/19 09:52 Pulse Rate 76 06/12/19 09:52 Respiratory Rate 18 06/12/19 09:52 Blood Pressure 161/64 06/12/19 09:52 O2 Sat by Pulse Oximetry (%) 98 06/11/19 08:36 Constitutional: Yes: No Distress, Calm Cardiovascular: Yes: Regular Rate and Rhythm Respiratory: Yes: CTA Bilaterally Gastrointestinal: Yes: Normal Bowel Sounds, Soft, Tenderness (epigastric/Rt side abd pain, no guarding) Genitourinary: Yes: Other (+spc) Integumentary: Yes: Pressure Ulcer Wound/Incision: Yes: Dressing Dry and Intact Neurological: Yes: Alert Labs: CBC, BMP 06/12/19 07:39 06/12/19 07:39 INR, PTT INR 1.26 (0.83-1.09) H 06/08/19 06:00 Microbiology 06/08/19 14:00 Coccyx Gram Stain - Final 06/08/19 14:00 Coccyx Wound Culture - Preliminary Proteus Mirabilus - Esbl Produ Pseudomonas Aeruginosa Group D Strep Or Entero Coccus Enterococcus Faecalis 06/10/19 08:45 Blood - Peripheral Venous Blood Culture - Preliminary NO GROWTH OBTAINED AFTER 48 HOURS, INCUBATION TO CONTINUE FOR 3 DAYS. 06/10/19 08:52 Blood - Peripheral Venous Blood Culture - Preliminary NO GROWTH OBTAINED AFTER 48 HOURS, INCUBATION TO CONTINUE FOR 3 DAYS. 06/06/19 15:11 Blood - Peripheral Venous Blood Culture - Final NO GROWTH AFTER 5 DAYS INCUBATION 06/06/19 15:11 Blood - Peripheral Venous Blood Culture - Final NO GROWTH AFTER 5 DAYS INCUBATION 06/06/19 16:43 Wound Gram Stain - Final 06/06/19 16:43 Wound Wound Culture - Final Escherichia Coli Morganella Morganii Enterococcus Faecalis 06/06/19 17:31 Urine - Urine Clean Catch Urine Culture - Final Klebsiella Pneumoniae - Esbl Proteus Mirabilis Morganella Morganii Problem List - Problems (1) Osteomyelitis Code(s): M86.9 - OSTEOMYELITIS, UNSPECIFIED (2) Sacral decubitus ulcer, stage IV Code(s): L89.154 - PRESSURE ULCER OF SACRAL REGION, STAGE 4 (3) UTI (urinary tract infection) Code(s): N39.0 - URINARY TRACT INFECTION, SITE NOT SPECIFIED (4) Wound infection Code(s): T14.8XXA - OTHER INJURY OF UNSPECIFIED BODY REGION, INITIAL ENCOUNTER; L08.9 - LOCAL INFECTION OF THE SKIN AND SUBCUTANEOUS TISSUE, UNSP Assessment/Plan Infected Sacral ST IV DU infection/OM s/p debridement POD #3 Fever Abdominal pain Rt pelvic abscess/loculation in gluteus UTI Neurogenic bladder with SPC DM Quadriplegia -- Pt remains febrile, wbc trending down -- will adjust dose of Meropenem, add Vancomycin empirically -- continue monitor closely for signs of adverse reaction -- suggest AXR -- if fevers persist suggest repeat CT A/P -- monitor temperatures,/vitals
[2019-06-12] MEDS: VANCOMYCIN 1 GRAM (PRE-DOCKED) 1,000 MG/250 ML BAG IVPB SCH (13:42)
[2019-06-12] MEDS ORDERED: DEXTROSE 5%-WATER 100 ML IVPB ONE (17:05)
[2019-06-12] MEDS ORDERED: MEROPENEM 1 GM VIAL (RESTRICTED TO ID) IVPB ONE (17:05)
[2019-06-12] MEDS: LACTATED RINGERS SOLUTION 1,000 ML IV SCH (17:15)
[2019-06-12] MEDS: MEROPENEM 1 GM in DEXTROSE 5%-WATER 100 ML IVPB SCH (17:15)
[2019-06-12] MEDS: ACETAMINOPHEN 325 MG TABLET (FP) PO PRN (17:16)
[2019-06-12] MEDS: SENNOSIDES 8.6MG TABLET (FP) PO SCH (21:44)
--- NOTE | 2019-06-12 23:44 | PN ---
Progress Note, Physician History of Present Illness: No new complaints - Current Medication List Current Medications: Active Medications Acetaminophen (Tylenol -) 650 mg PO Q6H PRN PRN Reason: FEVER Last Admin: 06/12/19 17:16 Dose: 650 mg Docusate Sodium (Colace -) 100 mg PO BID PRN PRN Reason: CONSTIPATION Last Admin: 06/11/19 17:19 Dose: 100 mg Heparin Sodium (Porcine) (Heparin -) 5,000 unit SQ TID [facility] Last Admin: 06/12/19 21:44 Dose: 5,000 unit Meropenem 1 gm/ Dextrose 100 mls @ 0 mls/hr IVPB BID@0600,1800 [facility] Last Admin: 06/12/19 17:15 Dose: 1 mls/hr Vancomycin HCl (Vancomycin (Pre-Docked)) 1,000 mg in 250 mls @ 166.667 mls/hr IVPB DAILY@1400 [facility]; Protocol Last Admin: 06/12/19 13:42 Dose: 166.667 mls/hr Insulin Aspart (Novolog Vial Sliding Scale -) 1 vial SQ ACHS [facility]; Protocol Last Admin: 06/12/19 21:45 Dose: Not Given Polyethylene Glycol (Miralax (For Daily Use) -) 17 gm PO BID [facility] Last Admin: 06/12/19 21:44 Dose: 17 gm Senna (Senna -) 1 tab PO HS [facility] Last Admin: 06/12/19 21:44 Dose: 1 tab - Objective Vital Signs: Vital Signs Temperature 100.6 F H 06/12/19 16:48 Pulse Rate 84 06/12/19 16:48 Respiratory Rate 20 06/12/19 16:48 Blood Pressure 152/74 06/12/19 16:48 O2 Sat by Pulse Oximetry (%) 98 06/12/19 09:00 Constitutional: Yes: No Distress Neck: Yes: WNL, Supple Cardiovascular: Yes: WNL, Regular Rate and Rhythm Respiratory: Yes: WNL, Regular, CTA Bilaterally Gastrointestinal: Yes: WNL, Normal Bowel Sounds, Soft Genitourinary: Yes: Other ((+) suprapubic cath) Edema: No Integumentary: Yes: Other (Stage 4 sacral ulcer) Labs: CBC, BMP 06/12/19 07:39 06/12/19 07:39 INR, PTT INR 1.26 (0.83-1.09) H 06/08/19 06:00 Problem List - Problems (1) Sacral decubitus ulcer, stage IV Assessment/Plan: Osteomyelitis S/P I&D of sacral ulcer Cont IV meropenem/vanco Code(s): L89.154 - PRESSURE ULCER OF SACRAL REGION, STAGE 4 (2) HTN (hypertension) Assessment/Plan: BP elevated May need to dc IVF Code(s): I10 - ESSENTIAL (PRIMARY) HYPERTENSION (3) Neurogenic bladder Assessment/Plan: Cont soriano cath(Suprapubic) Code(s): N31.9 - NEUROMUSCULAR DYSFUNCTION OF BLADDER, UNSPECIFIED (4) Anemia Assessment/Plan: Monitor H/H Code(s): D64.9 - ANEMIA, UNSPECIFIED (5) Diabetes Assessment/Plan: Cont sliding scale w/ coverage Code(s): E11.9 - TYPE 2 DIABETES MELLITUS WITHOUT COMPLICATIONS
[2019-06-13] MEDS ORDERED: PT OWN MED DRAWER 7, Y5N ONE ×2 (05:26→06:00)
[2019-06-13] MEDS: HEPARIN NA (PORCINE) 5,000 UNITS/ML 1ML VIAL SQ SCH ×3 (05:54→22:00)
[2019-06-13] MEDS: MEROPENEM 1 GM in DEXTROSE 5%-WATER 100 ML IVPB SCH ×2 (06:12→17:25)
[2019-06-13] MEDS: INSULIN SLIDING SCALE (NOVOLOG) 1 VIAL SQ SCH ×4 (06:31→22:01)
[2019-06-13 07:50] LABS: BASO % 0.8 % (0-2.0); EOS % 5.3 % (0-4.5); HEMATOCRIT 28.5 % (35.4-49); HEMOGLOBIN 9.2 GM/dL (11.7-16.9); LYMPH % 10.8 % (8-40); MCH 23.5 pg (25.7-33.7); MCHC 32.3 g/dl (32.0-35.9); MEAN CELL VOLUME 72.7 fl (80-96); MEAN PLT VOLUME 6.2 fl (7.5-11.1); MONO % 5.7 % (3.8-10.2); NEUT % 77.4 % (42.8-82.8); PLATELET COUNT 472 K/MM3 (134-434); RBC 3.92 M/mm3 (4.00-5.60); RDW 23.4 % (11.9-15.9); WHITE BLOOD COUNT 11.2 K/mm3 (4.0-10.0)
[2019-06-13 08:01] LABS: ALBUMIN 1.8 g/dl (3.4-5.0); BILIRUBIN,TOTAL 0.4 mg/dL (0.2-1); CALCIUM 8.3 mg/dL (8.5-10.1); POTASSIUM 4.1 mmol/L (3.5-5.1); TOT PROT 5.5 g/dl (6.4-8.2)
[2019-06-13] MEDS: POLYETHYLENE GLYCOL 3350 119 GM BTL PO SCH ×2 (09:53→22:00)
[2019-06-13] MEDS: VANCOMYCIN 1 GRAM (PRE-DOCKED) 1,000 MG/250 ML BAG IVPB SCH (14:21)
[2019-06-13] MEDS ORDERED: MEROPENEM 1 GM VIAL (RESTRICTED TO ID) IVPB ONE (17:21)
[2019-06-13] MEDS ORDERED: DEXTROSE 5%-WATER 100 ML IVPB ONE (17:21)
--- NOTE | 2019-06-13 17:55 | PN ---
Progress Note, Physician History of Present Illness: Pt is alert, without distress. Denies abd pain today. Afebrile in past 24 hrs. - Current Medication List Current Medications: Active Medications Acetaminophen (Tylenol -) 650 mg PO Q6H PRN PRN Reason: FEVER Last Admin: 06/12/19 17:16 Dose: 650 mg Docusate Sodium (Colace -) 100 mg PO BID PRN PRN Reason: CONSTIPATION Last Admin: 06/11/19 17:19 Dose: 100 mg Heparin Sodium (Porcine) (Heparin -) 5,000 unit SQ TID [facility] Last Admin: 06/13/19 14:21 Dose: 5,000 unit Meropenem 1 gm/ Dextrose 100 mls @ 0 mls/hr IVPB BID@0600,1800 [facility] Last Admin: 06/13/19 17:25 Dose: 1 mls/hr Vancomycin HCl (Vancomycin (Pre-Docked)) 1,000 mg in 250 mls @ 166.667 mls/hr IVPB DAILY@1400 [facility]; Protocol Last Admin: 06/13/19 14:21 Dose: 166.667 mls/hr Insulin Aspart (Novolog Vial Sliding Scale -) 1 vial SQ ACHS [facility]; Protocol Last Admin: 06/13/19 17:30 Dose: Not Given Polyethylene Glycol (Miralax (For Daily Use) -) 17 gm PO BID [facility] Last Admin: 06/13/19 09:53 Dose: 17 gm Senna (Senna -) 1 tab PO HS [facility] Last Admin: 06/12/19 21:44 Dose: 1 tab - Objective Vital Signs: Vital Signs Temperature 99.1 F 06/13/19 17:43 Pulse Rate 81 06/13/19 17:43 Respiratory Rate 20 06/13/19 17:43 Blood Pressure 178/73 H 06/13/19 17:43 O2 Sat by Pulse Oximetry (%) 98 06/13/19 09:00 Constitutional: Yes: No Distress, Calm Cardiovascular: Yes: Regular Rate and Rhythm Respiratory: Yes: Regular Gastrointestinal: Yes: Normal Bowel Sounds, Soft Genitourinary: Yes: Other (+SPC) Integumentary: Yes: WNL Neurological: Yes: Alert Labs: CBC, BMP 06/13/19 06:30 06/13/19 06:30 INR, PTT INR 1.26 (0.83-1.09) H 06/08/19 06:00 Microbiology 06/10/19 08:45 Blood - Peripheral Venous Blood Culture - Preliminary NO GROWTH OBTAINED AFTER 72 HOURS, INCUBATION TO CONTINUE FOR 2 DAYS. 06/10/19 08:52 Blood - Peripheral Venous Blood Culture - Preliminary NO GROWTH OBTAINED AFTER 72 HOURS, INCUBATION TO CONTINUE FOR 2 DAYS. 06/08/19 14:00 Coccyx Gram Stain - Final 06/08/19 14:00 Coccyx Wound Culture - Final Proteus Mirabilus - Esbl Produ Pseudomonas Aeruginosa Enterococcus Faecium Enterococcus Faecalis 06/06/19 15:11 Blood - Peripheral Venous Blood Culture - Final NO GROWTH AFTER 5 DAYS INCUBATION 06/06/19 15:11 Blood - Peripheral Venous Blood Culture - Final NO GROWTH AFTER 5 DAYS INCUBATION 06/06/19 16:43 Wound Gram Stain - Final 06/06/19 16:43 Wound Wound Culture - Final Escherichia Coli Morganella Morganii Enterococcus Faecalis 06/06/19 17:31 Urine - Urine Clean Catch Urine Culture - Final Klebsiella Pneumoniae - Esbl Proteus Mirabilis Morganella Morganii Problem List - Problems (1) Osteomyelitis Code(s): M86.9 - OSTEOMYELITIS, UNSPECIFIED (2) Sacral decubitus ulcer, stage IV Code(s): L89.154 - PRESSURE ULCER OF SACRAL REGION, STAGE 4 (3) UTI (urinary tract infection) Code(s): N39.0 - URINARY TRACT INFECTION, SITE NOT SPECIFIED (4) Wound infection Code(s): T14.8XXA - OTHER INJURY OF UNSPECIFIED BODY REGION, INITIAL ENCOUNTER; L08.9 - LOCAL INFECTION OF THE SKIN AND SUBCUTANEOUS TISSUE, UNSP Assessment/Plan Infected Sacral ST IV DU infection/OM s/p debridement POD #4 Fever Rt pelvic abscess/loculation in gluteus UTI Neurogenic bladder with SPC DM Quadriplegia -- continue Meropenem/Vancomycin -- check Vancomycin trough level prior to 4th dose -- Pt now afebrile -- monitor temperatures,/vitals
--- NOTE | 2019-06-13 20:17 | PN ---
Progress Note, Physician History of Present Illness: No new complaints - Current Medication List Current Medications: Active Medications Acetaminophen (Tylenol -) 650 mg PO Q6H PRN PRN Reason: FEVER Last Admin: 06/12/19 17:16 Dose: 650 mg Docusate Sodium (Colace -) 100 mg PO BID PRN PRN Reason: CONSTIPATION Last Admin: 06/11/19 17:19 Dose: 100 mg Heparin Sodium (Porcine) (Heparin -) 5,000 unit SQ TID [facility] Last Admin: 06/13/19 14:21 Dose: 5,000 unit Meropenem 1 gm/ Dextrose 100 mls @ 0 mls/hr IVPB BID@0600,1800 [facility] Last Admin: 06/13/19 17:25 Dose: 1 mls/hr Vancomycin HCl (Vancomycin (Pre-Docked)) 1,000 mg in 250 mls @ 166.667 mls/hr IVPB DAILY@1400 [facility], [facility]; Protocol Last Admin: 06/13/19 14:21 Dose: 166.667 mls/hr Insulin Aspart (Novolog Vial Sliding Scale -) 1 vial SQ ACHS [facility], [facility]; Protocol Last Admin: 06/13/19 17:30 Dose: Not Given Polyethylene Glycol (Miralax (For Daily Use) -) 17 gm PO BID [facility] Last Admin: 06/13/19 09:53 Dose: 17 gm Senna (Senna -) 1 tab PO HS [facility] Last Admin: 06/12/19 21:44 Dose: 1 tab - Objective Vital Signs: Vital Signs Temperature 99.1 F 06/13/19 17:43 Pulse Rate 81 06/13/19 17:43 Respiratory Rate 20 06/13/19 17:43 Blood Pressure 178/73 H 06/13/19 17:43 O2 Sat by Pulse Oximetry (%) 98 06/13/19 09:00 Neck: Yes: WNL, Supple Cardiovascular: Yes: WNL, Regular Rate and Rhythm Respiratory: Yes: WNL, Regular, CTA Bilaterally Gastrointestinal: Yes: WNL, Normal Bowel Sounds, Soft Genitourinary: Yes: Other ((+) suprapubic cath) Edema: No Labs: CBC, BMP 06/13/19 06:30 06/13/19 06:30 INR, PTT INR 1.26 (0.83-1.09) H 06/08/19 06:00 Problem List - Problems (1) Sacral decubitus ulcer, stage IV Assessment/Plan: Osteomyelitis S/P I&D of sacral ulcer Cont IV meropenem/vanco Code(s): L89.154 - PRESSURE ULCER OF SACRAL REGION, STAGE 4 (2) HTN (hypertension) Assessment/Plan: BP elevated May need to dc IVF Code(s): I10 - ESSENTIAL (PRIMARY) HYPERTENSION (3) Neurogenic bladder Assessment/Plan: Cont soriano cath(Suprapubic) Code(s): N31.9 - NEUROMUSCULAR DYSFUNCTION OF BLADDER, UNSPECIFIED (4) Anemia Assessment/Plan: Monitor H/H Code(s): D64.9 - ANEMIA, UNSPECIFIED (5) Diabetes Assessment/Plan: Cont sliding scale w/ coverage Code(s): E11.9 - TYPE 2 DIABETES MELLITUS WITHOUT COMPLICATIONS
[2019-06-13] MEDS: SENNOSIDES 8.6MG TABLET (FP) PO SCH (22:01)
[2019-06-14] MEDS ORDERED: MEROPENEM 1 GM VIAL (RESTRICTED TO ID) IVPB ONE (05:47)
[2019-06-14] MEDS ORDERED: DEXTROSE 5%-WATER 100 ML IVPB ONE (05:47)
[2019-06-14] MEDS: MEROPENEM 1 GM in DEXTROSE 5%-WATER 100 ML IVPB SCH ×2 (06:24→18:26)
[2019-06-14] MEDS: INSULIN SLIDING SCALE (NOVOLOG) 1 VIAL SQ SCH ×4 (06:24→21:21)
[2019-06-14] MEDS: HEPARIN NA (PORCINE) 5,000 UNITS/ML 1ML VIAL SQ SCH ×3 (06:24→22:03)
[2019-06-14 08:24] LABS: BASO % 0.9 % (0-2.0); EOS % 4.8 % (0-4.5); HEMATOCRIT 27.1 % (35.4-49); HEMOGLOBIN 8.7 GM/dL (11.7-16.9); LYMPH % 8.8 % (8-40); MCH 23.6 pg (25.7-33.7); MCHC 32.2 g/dl (32.0-35.9); MEAN CELL VOLUME 73.5 fl (80-96); MONO % 8.4 % (3.8-10.2); NEUT % 77.1 % (42.8-82.8); PLATELET COUNT 446 K/MM3 (134-434); RBC 3.69 M/mm3 (4.00-5.60); RDW 23.4 % (11.9-15.9); WHITE BLOOD COUNT 10.3 K/mm3 (4.0-10.0)
[2019-06-14] MEDS: POLYETHYLENE GLYCOL 3350 119 GM BTL PO SCH ×2 (09:48→21:20)
--- NOTE | 2019-06-14 10:52 | OP ---
DATE OF OPERATION: 06/08/2019 PREOPERATIVE DIAGNOSIS: Unstageable sacral pressure ulcer. POSTOPERATIVE DIAGNOSIS: Unstageable sacral pressure ulcer. PROCEDURE: Excisional debridement of unstageable sacral decubitus ulcer. SURGEON: Chapo Quintero MD CABANA ATTENDANT: ALEXANDER Cuba ANESTHESIA: General. OPERATIVE FINDINGS: There was an unstageable sacral decubitus ulcer involving the skin, subcutaneous fat, fascia, and bone. The rest of the findings were unremarkable. DESCRIPTION OF PROCEDURE: The patient was placed on the operating room table in supine position, and after the induction of general anesthesia, the patient was turned to the left lateral decubitus position. Using a scalpel, all nonviable skin, subcutaneous fat, fascia, and portions of bone were sharply excised and sent for pathological examination. Hemostasis was secured with electrocautery and then the wound was dressed with saline-soaked Kerlix followed by sterile 4 x 4's dressings and abdominal pads. The procedure was terminated at this point and the patient aroused from general anesthesia and transferred to the post anesthesia care unit in stable condition awake and alert. ESTIMATED BLOOD LOSS: 50 mL. REPLACEMENT: Crystalloid. DRAINS: None. SPECIMENS: Nonviable tissue to Pathology. I, Chapo Quintero, was physically present in the operating room from the time the patient was placed on the operating room table until he was transferred to the post anesthesia care unit in [employer]. Chapo Quintero MD [id number] MTDD
--- NOTE | 2019-06-14 11:00 | PN ---
Progress Note, Physician History of Present Illness: stable no new issues - Current Medication List Current Medications: Active Medications Acetaminophen (Tylenol -) 650 mg PO Q6H PRN PRN Reason: FEVER Last Admin: 06/12/19 17:16 Dose: 650 mg Docusate Sodium (Colace -) 100 mg PO BID PRN PRN Reason: CONSTIPATION Last Admin: 06/11/19 17:19 Dose: 100 mg Heparin Sodium (Porcine) (Heparin -) 5,000 unit SQ TID [facility] Last Admin: 06/14/19 06:24 Dose: 5,000 unit Meropenem 1 gm/ Dextrose 100 mls @ 0 mls/hr IVPB BID@0600,1800 [facility] Last Admin: 06/14/19 06:24 Dose: 1,000 mls/hr Vancomycin HCl (Vancomycin (Pre-Docked)) 1,000 mg in 250 mls @ 166.667 mls/hr IVPB DAILY@1400 [facility]; Protocol Last Admin: 06/13/19 14:21 Dose: 166.667 mls/hr Insulin Aspart (Novolog Vial Sliding Scale -) 1 vial SQ ACHS [facility]; Protocol Last Admin: 06/14/19 06:24 Dose: Not Given Polyethylene Glycol (Miralax (For Daily Use) -) 17 gm PO BID [facility] Last Admin: 06/14/19 09:48 Dose: Not Given Senna (Senna -) 1 tab PO HS [facility] Last Admin: 06/13/19 22:01 Dose: 1 tab - Objective Vital Signs: Vital Signs Temperature 98.2 F 06/14/19 06:57 Pulse Rate 80 06/14/19 06:57 Respiratory Rate 20 06/14/19 06:57 Blood Pressure 122/68 06/14/19 06:57 O2 Sat by Pulse Oximetry (%) 98 06/13/19 09:00 Constitutional: Yes: No Distress, Calm Cardiovascular: Yes: S1, S2 Respiratory: Yes: Regular, CTA Bilaterally Gastrointestinal: Yes: Normal Bowel Sounds, Soft Extremities: Yes: WNL Wound/Incision: Yes: Dressing Dry and Intact Neurological: Yes: Alert, Oriented Labs: CBC, BMP 06/14/19 07:10 06/13/19 06:30 INR, PTT INR 1.26 (0.83-1.09) H 06/08/19 06:00 Assessment/Plan 73 year old male with past medical history of quadriplegia, neurogenic bladder with a suprapublic catheter placed, hypertension, type 2 DM, IVC filter admitted for management of his stage 4 sacral ulcer. Stage 4 Sacral Ulcer R pelvis abcess Bacteriuria Hydronephrosis T2DM Constipation Anemia Quadriplegia osteo of the sacrum plan continue abx wound care ret as per the team Problems (1) Osteomyelitis Code(s): M86.9 - OSTEOMYELITIS, UNSPECIFIED (2) Sacral decubitus ulcer, stage IV Code(s): L89.154 - PRESSURE ULCER OF SACRAL REGION, STAGE 4 (3) UTI (urinary tract infection) Code(s): N39.0 - URINARY TRACT INFECTION, SITE NOT SPECIFIED (4) Wound infection Code(s): T14.8XXA - OTHER INJURY OF UNSPECIFIED BODY REGION, INITIAL ENCOUNTER; L08.9 - LOCAL INFECTION OF THE SKIN AND SUBCUTANEOUS TISSUE, UNSP Assessment/Plan Infected Sacral ST IV DU infection/OM s/p debridement POD #4 Fever Rt pelvic abscess/loculation in gluteus UTI Neurogenic bladder with SPC DM Quadriplegia -- continue Meropenem/Vancomycin -- check Vancomycin trough level prior to 4th dose -- Pt now afebrile -- monitor temperatures,/vitals
[2019-06-14] MEDS ORDERED: PROMETHAZINE HCL 25 MG/1 ML VIAL IVPB PRN ×2 (11:38→12:48)
[2019-06-14] MEDS ORDERED: ONDANSETRON 4 MG/2 ML VIAL IVPUSH PRN ×2 (11:38→12:48)
[2019-06-14] MEDS ORDERED: LACTATED RINGERS SOLUTION 1,000 ML IV SCH (11:45)
[2019-06-14] MEDS ORDERED: PROPOFOL 20 ML ONE ×4 (11:48)
[2019-06-14] MEDS ORDERED: LIDOCAINE HCL/PF 2% SDV 5ML VIAL ONE (11:49)
[2019-06-14] MEDS ORDERED: DEXAMETHASONE SOD PHOSPHATE 4 MG/1 ML VIAL ONE (12:05)
--- NOTE | 2019-06-14 12:30 | OP ---
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 The ureteral orifices could not be identified because of severe inflammatory reaction. Bladder neck open. Post-Operative Diagnosis: Other Surgeon: Galina Johnson Anesthesia: General Operative Report Dictated: Yes
[2019-06-14] MEDS ORDERED: DOCUSATE SODIUM 100 MG CAPSULE (FP) PO PRN (12:48)
--- NOTE | 2019-06-14 13:12 | OP ---
DATE OF OPERATION: 06/14/2019 ANESTHESIA: General. PREOPERATIVE DIAGNOSIS: Bilateral hydronephrosis. POSTOPERATIVE DIAGNOSIS: Bladder tumor. FINDINGS: Urethra normal. Penis is markedly swollen with severe inflammatory reaction. The inflammatory reaction is extending on to the testes, which were swollen. Meatus is normal. The rest of the urethra is normal, bladder neck open. Once bladder is entered, a large tumor was noted hanging from the dome of the bladder surrounding the suprapubic tube and the tumor is dispersed throughout the bladder. Severe inflammatory reaction noted throughout the bladder, and the ureteral orifices could not be located. At that point, the chart was reviewed. The renal scan shows good function on both sides with no evidence of obstruction. It was decided not to pursue the ureteral orifices by giving him any dye, like indigo carmine or methylene blue. A biopsy of the bladder tumor taken. Bladder emptied. The patient tolerated the procedure well and left the operating room in a satisfactory condition. The future plan would be, if medically necessary, he might need circumcision and possibly a TUR of bladder tumor. Chloe [id number]
[2019-06-14] MEDS: LACTATED RINGERS SOLUTION 1,000 ML IV SCH ×2 (13:30→18:25)
[2019-06-14] MEDS: VANCOMYCIN 1 GRAM (PRE-DOCKED) 1,000 MG/250 ML BAG IVPB SCH (13:53)
[2019-06-14] MEDS ORDERED: PT OWN MED DRAWER 7, Y5N ONE ×2 (17:47→18:20)
[2019-06-14] MEDS: SENNOSIDES 8.6MG TABLET (FP) PO SCH (21:23)
--- NOTE | 2019-06-14 21:53 | PN ---
Progress Note, Physician - Current Medication List Current Medications: Active Medications Acetaminophen (Tylenol -) 650 mg PO Q6H PRN PRN Reason: FEVER Docusate Sodium (Colace -) 100 mg PO BID PRN PRN Reason: CONSTIPATION Fentanyl (Sublimaze Injection -) 50 mcg IVPUSH [id number] PRN PRN Reason: PAIN-PACU ORDER X 4 DOSES ONLY Stop: 06/15/19 11:37 Gabapentin (Neurontin -) 100 mg PO DAILY PRN PRN Reason: PAIN Heparin Sodium (Porcine) (Heparin -) 5,000 unit SQ TID [facility] Last Admin: 06/14/19 13:53 Dose: 5,000 unit Lactated Ringer's (Lactated Ringers Solution) 1,000 mls @ 125 mls/hr IV ASDIR [facility] Last Admin: 06/14/19 18:25 Dose: 125 mls/hr Meropenem 1 gm/ Dextrose 100 mls @ 200 mls/hr IVPB BID@0600,1800 [facility] Last Admin: 06/14/19 18:26 Dose: 200 mls/hr Vancomycin HCl (Vancomycin (Pre-Docked)) 1,000 mg in 250 mls @ 166.667 mls/hr IVPB DAILY@1400 [facility]; Protocol Last Admin: 06/14/19 13:53 Dose: 166.667 mls/hr Insulin Aspart (Novolog Vial Sliding Scale -) 1 vial SQ ACHS [facility]; Protocol Last Admin: 06/14/19 21:21 Dose: Not Given Ondansetron HCl (Zofran Injection) 4 mg IVPUSH Q6H PRN PRN Reason: NAUSEA AND/OR VOMITING Stop: 06/15/19 11:37 Pantoprazole Sodium (Protonix -) 20 mg PO DAILY [facility] Polyethylene Glycol (Miralax (For Daily Use) -) 17 gm PO BID [facility] Last Admin: 06/14/19 21:20 Dose: 17 gm Promethazine HCl (Phenergan Injection -) 12.5 mg IVPB Q6H PRN PRN Reason: NAUSEA-FOR RESCUE AFTER 15 MIN Stop: 06/15/19 11:37 Senna (Senna -) 1 tab PO HS [facility] Last Admin: 06/14/19 21:23 Dose: 1 tab - Objective Vital Signs: Vital Signs Temperature 98.0 F 06/14/19 19:44 Pulse Rate 96 H 06/14/19 19:44 Respiratory Rate 20 06/14/19 19:44 Blood Pressure 123/59 L 06/14/19 19:44 O2 Sat by Pulse Oximetry (%) 99 06/14/19 13:15 Labs: CBC, BMP 06/14/19 07:10 06/13/19 06:30 INR, PTT INR 1.26 (0.83-1.09) H 06/08/19 06:00 Problem List - Problems (1) Sacral decubitus ulcer, stage IV Code(s): L89.154 - PRESSURE ULCER OF SACRAL REGION, STAGE 4 (2) HTN (hypertension) Code(s): I10 - ESSENTIAL (PRIMARY) HYPERTENSION (3) Neurogenic bladder Code(s): N31.9 - NEUROMUSCULAR DYSFUNCTION OF BLADDER, UNSPECIFIED (4) Anemia Code(s): D64.9 - ANEMIA, UNSPECIFIED (5) Diabetes Code(s): E11.9 - TYPE 2 DIABETES MELLITUS WITHOUT COMPLICATIONS
[2019-06-15] MEDS ORDERED: DEXTROSE 5%-WATER 200 ML IVPB ONE (05:57)
[2019-06-15] MEDS ORDERED: MEROPENEM 1 GM VIAL (RESTRICTED TO ID) IVPB ONE (05:57)
[2019-06-15] MEDS: MEROPENEM 1 GM in DEXTROSE 5%-WATER 100 ML IVPB SCH ×2 (06:10→17:39)
[2019-06-15] MEDS: HEPARIN NA (PORCINE) 5,000 UNITS/ML 1ML VIAL SQ SCH ×3 (06:10→21:11)
[2019-06-15] MEDS ORDERED: PNEUMOCOCCAL 23 VACCINE 0.5 ML VIAL IM ONE (07:59)
--- NOTE | 2019-06-15 08:34 | PN ---
Progress Note, Physician History of Present Illness: stable no new issues - Current Medication List Current Medications: Active Medications Acetaminophen (Tylenol -) 650 mg PO Q6H PRN PRN Reason: FEVER Docusate Sodium (Colace -) 100 mg PO BID PRN PRN Reason: CONSTIPATION Fentanyl (Sublimaze Injection -) 50 mcg IVPUSH [id number] PRN PRN Reason: PAIN-PACU ORDER X 4 DOSES ONLY Stop: 06/15/19 11:37 Gabapentin (Neurontin -) 100 mg PO DAILY PRN PRN Reason: PAIN Heparin Sodium (Porcine) (Heparin -) 5,000 unit SQ TID [facility] Last Admin: 06/15/19 06:10 Dose: 5,000 unit Lactated Ringer's (Lactated Ringers Solution) 1,000 mls @ 125 mls/hr IV ASDIR [facility] Last Admin: 06/14/19 18:25 Dose: 125 mls/hr Meropenem 1 gm/ Dextrose 100 mls @ 200 mls/hr IVPB BID@0600,1800 [facility] Last Admin: 06/15/19 06:10 Dose: 200 mls/hr Vancomycin HCl (Vancomycin (Pre-Docked)) 1,000 mg in 250 mls @ 166.667 mls/hr IVPB DAILY@1400 [facility]; Protocol Last Admin: 06/14/19 13:53 Dose: 166.667 mls/hr Insulin Aspart (Novolog Vial Sliding Scale -) 1 vial SQ ACHS [facility]; Protocol Last Admin: 06/14/19 21:21 Dose: Not Given Ondansetron HCl (Zofran Injection) 4 mg IVPUSH Q6H PRN PRN Reason: NAUSEA AND/OR VOMITING Stop: 06/15/19 11:37 Pantoprazole Sodium (Protonix -) 20 mg PO DAILY [facility] Pneumococcal 13-Valent Conj Vacc (Prevnar 13 Syringe -) 0.5 ml IM .ONCE ONE Stop: 06/15/19 10:01 Polyethylene Glycol (Miralax (For Daily Use) -) 17 gm PO BID [facility] Last Admin: 06/14/19 21:20 Dose: 17 gm Promethazine HCl (Phenergan Injection -) 12.5 mg IVPB Q6H PRN PRN Reason: NAUSEA-FOR RESCUE AFTER 15 MIN Stop: 06/15/19 11:37 Senna (Senna -) 1 tab PO HS [facility] Last Admin: 06/14/19 21:23 Dose: 1 tab - Objective Vital Signs: Vital Signs Temperature 98.7 F 06/15/19 06:00 Pulse Rate 76 06/15/19 06:00 Respiratory Rate 20 06/15/19 06:00 Blood Pressure 158/71 06/15/19 06:00 O2 Sat by Pulse Oximetry (%) 99 06/14/19 13:15 Constitutional: Yes: No Distress, Calm Cardiovascular: Yes: S1, S2 Respiratory: Yes: Regular, CTA Bilaterally Gastrointestinal: Yes: Normal Bowel Sounds, Soft Musculoskeletal: Yes: WNL Neurological: Yes: Alert, Oriented Psychiatric: Yes: Alert, Oriented Labs: CBC, BMP 06/14/19 07:10 06/13/19 06:30 INR, PTT INR 1.26 (0.83-1.09) H 06/08/19 06:00 Assessment/Plan 73 year old male with past medical history of quadriplegia, neurogenic bladder with a suprapublic catheter placed, hypertension, type 2 DM, IVC filter admitted for management of his stage 4 sacral ulcer. Stage 4 Sacral Ulcer R pelvis abcess Bacteriuria Hydronephrosis T2DM Constipation Anemia Quadriplegia osteo of the sacrum plan continue abx wound care ret as per the team Problems (1) Osteomyelitis Code(s): M86.9 - OSTEOMYELITIS, UNSPECIFIED (2) Sacral decubitus ulcer, stage IV Code(s): L89.154 - PRESSURE ULCER OF SACRAL REGION, STAGE 4 (3) UTI (urinary tract infection) Code(s): N39.0 - URINARY TRACT INFECTION, SITE NOT SPECIFIED (4) Wound infection Code(s): T14.8XXA - OTHER INJURY OF UNSPECIFIED BODY REGION, INITIAL ENCOUNTER; L08.9 - LOCAL INFECTION OF THE SKIN AND SUBCUTANEOUS TISSUE, UNSP Assessment/Plan Infected Sacral ST IV DU infection/OM s/p debridement POD #4 Fever Rt pelvic abscess/loculation in gluteus UTI Neurogenic bladder with SPC DM Quadriplegia -- continue Meropenem/Vancomycin will check vanco level tomorrow rest as per the team wound care
--- NOTE | 2019-06-15 09:21 | PATH ---
Surgical Pathology Report Patient Name: MAGNO DE LA TORRE Med. Rec. #: [id number] /Age/Gender: 1945 (Age: 73) / M Account: [id number] Location: [facility] MED/SURG Taken: 06/08/2019 Received: 06/08/2019 Reported: 06/15/2019 Physicians: Chapo Quintero MD Specimen(s) Received DEBRIDED TISSUE SACRAL AREA Clinical History Sacral ulcer Final Diagnosis DEBRIDED TISSUE, SACRAL AREA, DEBRIDEMENT: GANGRENOUS NECROTIC FIBROUS TISSUE. SEPARATE SCANTY PORTION OF BONE WITH ACUTE OSTEOMYELITIS. Electronically Signed Sathya Rivera M.D. Gross Description Received in formalin, labeled "debrided tissue, sacral area" is an 8.5 x 8 x 2 cm, aggregate of kenney and florence-brown, necrotic appearing tissue. Supervisor Hard Candy tissue submitted in one cassette. AE/06/10/2019 ebram/06/10/2019
[2019-06-15] MEDS: INSULIN SLIDING SCALE (NOVOLOG) 1 VIAL SQ SCH ×4 (09:29→21:12)
[2019-06-15] MEDS: PANTOPRAZOLE 20 MG TABLET (FP) PO SCH (09:41)
[2019-06-15] MEDS ORDERED: PNEUMOC 13-VAL CONJ-DIP CRM/PF 0.5 ML DISP.SYRIN IM ONE (10:00)
[2019-06-15] MEDS: POLYETHYLENE GLYCOL 3350 119 GM BTL PO SCH ×2 (10:03→21:12)
--- NOTE | 2019-06-15 10:38 | PN ---
Progress Note (short form) - Note Progress Note: Post op day#1.S/P Cystoscopy with U bladder biopsy under GA uneventful.Patient stable.No any anesthesia related problem.Patient DC from the anesthesia care.
[2019-06-15] MEDS: VANCOMYCIN 1 GRAM (PRE-DOCKED) 1,000 MG/250 ML BAG IVPB SCH (14:57)
[2019-06-15] MEDS: SENNOSIDES 8.6MG TABLET (FP) PO SCH (21:12)
--- NOTE | 2019-06-15 21:41 | PN ---
Progress Note, Physician - Current Medication List Current Medications: Active Medications Acetaminophen (Tylenol -) 650 mg PO Q6H PRN PRN Reason: FEVER Docusate Sodium (Colace -) 100 mg PO BID PRN PRN Reason: CONSTIPATION Gabapentin (Neurontin -) 100 mg PO DAILY PRN PRN Reason: PAIN Heparin Sodium (Porcine) (Heparin -) 5,000 unit SQ TID [facility] Last Admin: 06/15/19 21:11 Dose: 5,000 unit Lactated Ringer's (Lactated Ringers Solution) 1,000 mls @ 125 mls/hr IV ASDIR [facility] Last Admin: 06/14/19 18:25 Dose: 125 mls/hr Meropenem 1 gm/ Dextrose 100 mls @ 200 mls/hr IVPB BID@0600,1800 [facility] Last Admin: 06/15/19 17:39 Dose: 200 mls/hr Vancomycin HCl (Vancomycin (Pre-Docked)) 1,000 mg in 250 mls @ 166.667 mls/hr IVPB DAILY@1400 [facility]; Protocol Last Admin: 06/15/19 14:57 Dose: 166.667 mls/hr Insulin Aspart (Novolog Vial Sliding Scale -) 1 vial SQ ACHS [facility]; Protocol Last Admin: 06/15/19 21:12 Dose: Not Given Pantoprazole Sodium (Protonix -) 20 mg PO DAILY [facility] Last Admin: 06/15/19 09:41 Dose: 20 mg Polyethylene Glycol (Miralax (For Daily Use) -) 17 gm PO BID [facility] Last Admin: 06/15/19 21:12 Dose: 17 gm Senna (Senna -) 1 tab PO HS [facility] Last Admin: 06/15/19 21:12 Dose: 1 tab - Objective Vital Signs: Vital Signs Temperature 98.7 F 06/15/19 16:30 Pulse Rate 80 06/15/19 16:30 Respiratory Rate 20 06/15/19 16:30 Blood Pressure 157/77 06/15/19 16:30 O2 Sat by Pulse Oximetry (%) 99 06/14/19 13:15 Labs: CBC, BMP 06/14/19 07:10 06/13/19 06:30 INR, PTT INR 1.26 (0.83-1.09) H 06/08/19 06:00 Problem List - Problems (1) Sacral decubitus ulcer, stage IV Code(s): L89.154 - PRESSURE ULCER OF SACRAL REGION, STAGE 4 (2) HTN (hypertension) Code(s): I10 - ESSENTIAL (PRIMARY) HYPERTENSION (3) Neurogenic bladder Code(s): N31.9 - NEUROMUSCULAR DYSFUNCTION OF BLADDER, UNSPECIFIED (4) Anemia Code(s): D64.9 - ANEMIA, UNSPECIFIED (5) Diabetes Code(s): E11.9 - TYPE 2 DIABETES MELLITUS WITHOUT COMPLICATIONS
[2019-06-15] MEDS: LACTATED RINGERS SOLUTION 1,000 ML IV SCH (23:05)
[2019-06-16] MEDS ORDERED: PT OWN MED DRAWER 7, Y5N ONE ×2 (05:46→05:49)
[2019-06-16] MEDS: HEPARIN NA (PORCINE) 5,000 UNITS/ML 1ML VIAL SQ SCH ×3 (05:52→21:19)
[2019-06-16] MEDS: INSULIN SLIDING SCALE (NOVOLOG) 1 VIAL SQ SCH ×4 (06:26→23:20)
[2019-06-16] MEDS: MEROPENEM 1 GM in DEXTROSE 5%-WATER 100 ML IVPB SCH ×2 (06:26→17:43)
--- NOTE | 2019-06-16 08:46 | PN ---
Progress Note, Physician History of Present Illness: stable post cysto no complaint - Current Medication List Current Medications: Active Medications Acetaminophen (Tylenol -) 650 mg PO Q6H PRN PRN Reason: FEVER Docusate Sodium (Colace -) 100 mg PO BID PRN PRN Reason: CONSTIPATION Gabapentin (Neurontin -) 100 mg PO DAILY PRN PRN Reason: PAIN Heparin Sodium (Porcine) (Heparin -) 5,000 unit SQ TID [facility] Last Admin: 06/16/19 05:52 Dose: 5,000 unit Lactated Ringer's (Lactated Ringers Solution) 1,000 mls @ 125 mls/hr IV ASDIR [facility] Last Admin: 06/15/19 23:05 Dose: 125 mls/hr Meropenem 1 gm/ Dextrose 100 mls @ 200 mls/hr IVPB BID@0600,1800 [facility] Last Admin: 06/16/19 06:26 Dose: 200 mls/hr Vancomycin HCl (Vancomycin (Pre-Docked)) 1,000 mg in 250 mls @ 166.667 mls/hr IVPB DAILY@1400 [facility]; Protocol Last Admin: 06/15/19 14:57 Dose: 166.667 mls/hr Insulin Aspart (Novolog Vial Sliding Scale -) 1 vial SQ ACHS [facility]; Protocol Last Admin: 06/16/19 06:26 Dose: Not Given Pantoprazole Sodium (Protonix -) 20 mg PO DAILY [facility] Last Admin: 06/15/19 09:41 Dose: 20 mg Polyethylene Glycol (Miralax (For Daily Use) -) 17 gm PO BID [facility] Last Admin: 06/15/19 21:12 Dose: 17 gm Senna (Senna -) 1 tab PO HS [facility] Last Admin: 06/15/19 21:12 Dose: 1 tab - Objective Vital Signs: Vital Signs Temperature 98 F 06/15/19 22:00 Pulse Rate 76 06/15/19 22:00 Respiratory Rate 18 06/15/19 22:00 Blood Pressure 143/71 06/15/19 22:00 O2 Sat by Pulse Oximetry (%) 99 06/14/19 13:15 Constitutional: Yes: No Distress, Calm Cardiovascular: Yes: S1, S2 Respiratory: Yes: Regular, Diminished Gastrointestinal: Yes: Normal Bowel Sounds, Soft Musculoskeletal: Yes: WNL Extremities: Yes: Other Neurological: Yes: Alert, Oriented Psychiatric: Yes: Alert, Oriented Labs: CBC, BMP 06/14/19 07:10 06/13/19 06:30 INR, PTT INR 1.26 (0.83-1.09) H 06/08/19 06:00 Assessment/Plan 73 year old male with past medical history of quadriplegia, neurogenic bladder with a suprapublic catheter placed, hypertension, type 2 DM, IVC filter admitted for management of his stage 4 sacral ulcer. Stage 4 Sacral Ulcer R pelvis abcess Bacteriuria Hydronephrosis T2DM Constipation Anemia Quadriplegia osteo of the sacrum plan continue abx wound care ret as per the team Problems (1) Osteomyelitis Code(s): M86.9 - OSTEOMYELITIS, UNSPECIFIED (2) Sacral decubitus ulcer, stage IV Code(s): L89.154 - PRESSURE ULCER OF SACRAL REGION, STAGE 4 (3) UTI (urinary tract infection) Code(s): N39.0 - URINARY TRACT INFECTION, SITE NOT SPECIFIED (4) Wound infection Code(s): T14.8XXA - OTHER INJURY OF UNSPECIFIED BODY REGION, INITIAL ENCOUNTER; L08.9 - LOCAL INFECTION OF THE SKIN AND SUBCUTANEOUS TISSUE, UNSP Assessment/Plan Infected Sacral ST IV DU infection/OM s/p debridement POD #4 Fever Rt pelvic abscess/loculation in gluteus UTI Neurogenic bladder with SPC DM Quadriplegia -- continue Meropenem/Vancomycin await for vanco level will need at least 14 days of treatment wound care rest as per the team
[2019-06-16] MEDS: PANTOPRAZOLE 20 MG TABLET (FP) PO SCH (10:30)
[2019-06-16] MEDS: POLYETHYLENE GLYCOL 3350 119 GM BTL PO SCH ×2 (10:30→21:21)
[2019-06-16] MEDS: ACETAMINOPHEN 325 MG TABLET (FP) PO PRN (10:37)
[2019-06-16] MEDS: GABAPENTIN 100 MG CAPSULE (FP) PO PRN (10:38)
[2019-06-16] MEDS ORDERED: ONDANSETRON 4 MG/2 ML VIAL IVPUSH PRN (11:11)
[2019-06-16] MEDS ORDERED: INSULIN (NOVOLOG) ASPART 100 UNITS/ML 10ML VIAL ONE (11:21)
[2019-06-16] MEDS: VANCOMYCIN 1 GRAM (PRE-DOCKED) 1,000 MG/250 ML BAG IVPB SCH ×2 (13:11→14:45)
[2019-06-16] MEDS: LACTATED RINGERS SOLUTION 1,000 ML IV SCH (14:45)
--- NOTE | 2019-06-16 16:02 | PN ---
Progress Note (short form) - Note Progress Note: UROLOGY NOTE S/P cysto and bladder biopsy Plan: NPO thursday after midnight for TUEBT in Thursday.
[2019-06-16] MEDS ORDERED: MEROPENEM 1 GM VIAL (RESTRICTED TO ID) IVPB ONE (17:12)
[2019-06-16] MEDS ORDERED: DEXTROSE 5%-WATER 100 ML IVPB ONE (17:13)
[2019-06-16] MEDS: SENNOSIDES 8.6MG TABLET (FP) PO SCH (21:20)
--- NOTE | 2019-06-16 22:50 | PN ---
Progress Note, Physician - Current Medication List Current Medications: Active Medications Acetaminophen (Tylenol -) 650 mg PO Q6H PRN PRN Reason: FEVER Last Admin: 06/16/19 10:37 Dose: 650 mg Docusate Sodium (Colace -) 100 mg PO BID PRN PRN Reason: CONSTIPATION Gabapentin (Neurontin -) 100 mg PO DAILY PRN PRN Reason: PAIN Last Admin: 06/16/19 10:38 Dose: 100 mg Heparin Sodium (Porcine) (Heparin -) 5,000 unit SQ TID [facility] Last Admin: 06/16/19 21:19 Dose: 5,000 unit Lactated Ringer's (Lactated Ringers Solution) 1,000 mls @ 125 mls/hr IV ASDIR [facility] Last Admin: 06/16/19 14:45 Dose: 125 mls/hr Meropenem 1 gm/ Dextrose 100 mls @ 200 mls/hr IVPB BID@0600,1800 [facility] Last Admin: 06/16/19 17:43 Dose: 200 mls/hr Vancomycin HCl (Vancomycin (Pre-Docked)) 1,000 mg in 250 mls @ 166.667 mls/hr IVPB DAILY@1400 [facility]; Protocol Last Admin: 06/16/19 14:45 Dose: 166.667 mls/hr Insulin Aspart (Novolog Vial Sliding Scale -) 1 vial SQ ACHS [facility]; Protocol Last Admin: 06/16/19 17:43 Dose: Not Given Ondansetron HCl (Zofran Injection) 4 mg IVPUSH Q6H PRN PRN Reason: NAUSEA Last Admin: 06/16/19 11:26 Dose: 4 mg Pantoprazole Sodium (Protonix -) 20 mg PO DAILY [facility] Last Admin: 06/16/19 10:30 Dose: 20 mg Polyethylene Glycol (Miralax (For Daily Use) -) 17 gm PO BID [facility] Last Admin: 06/16/19 21:21 Dose: Not Given Senna (Senna -) 1 tab PO HS [facility] Last Admin: 06/16/19 21:20 Dose: 1 tab - Objective Vital Signs: Vital Signs Temperature 97.7 F 06/16/19 16:30 Pulse Rate 60 06/16/19 16:30 Respiratory Rate 18 06/16/19 16:30 Blood Pressure 161/75 06/16/19 16:30 O2 Sat by Pulse Oximetry (%) 99 06/14/19 13:15 Labs: CBC, BMP 06/14/19 07:10 06/13/19 06:30 INR, PTT INR 1.26 (0.83-1.09) H 06/08/19 06:00 Problem List - Problems (1) Sacral decubitus ulcer, stage IV Code(s): L89.154 - PRESSURE ULCER OF SACRAL REGION, STAGE 4 (2) HTN (hypertension) Code(s): I10 - ESSENTIAL (PRIMARY) HYPERTENSION (3) Neurogenic bladder Code(s): N31.9 - NEUROMUSCULAR DYSFUNCTION OF BLADDER, UNSPECIFIED (4) Anemia Code(s): D64.9 - ANEMIA, UNSPECIFIED (5) Diabetes Code(s): E11.9 - TYPE 2 DIABETES MELLITUS WITHOUT COMPLICATIONS
[2019-06-17] MEDS ORDERED: PT OWN MED DRAWER 7, Y5N ONE ×2 (05:07→10:38)
[2019-06-17] MEDS: LACTATED RINGERS SOLUTION 1,000 ML IV SCH ×4 (05:44→21:47)
[2019-06-17] MEDS: HEPARIN NA (PORCINE) 5,000 UNITS/ML 1ML VIAL SQ SCH ×3 (05:45→21:47)
[2019-06-17] MEDS: MEROPENEM 1 GM in DEXTROSE 5%-WATER 100 ML IVPB SCH ×2 (05:58→17:46)
[2019-06-17] MEDS: INSULIN SLIDING SCALE (NOVOLOG) 1 VIAL SQ SCH ×4 (06:01→22:22)
[2019-06-17] MEDS: PANTOPRAZOLE 20 MG TABLET (FP) PO SCH (10:50)
[2019-06-17] MEDS: POLYETHYLENE GLYCOL 3350 119 GM BTL PO SCH ×2 (10:50→21:47)
--- NOTE | 2019-06-17 10:50 | PN ---
Progress Note, Physician History of Present Illness: stable no new issues - Current Medication List Current Medications: Active Medications Acetaminophen (Tylenol -) 650 mg PO Q6H PRN PRN Reason: FEVER Last Admin: 06/16/19 10:37 Dose: 650 mg Docusate Sodium (Colace -) 100 mg PO BID PRN PRN Reason: CONSTIPATION Gabapentin (Neurontin -) 100 mg PO DAILY PRN PRN Reason: PAIN Last Admin: 06/16/19 10:38 Dose: 100 mg Heparin Sodium (Porcine) (Heparin -) 5,000 unit SQ TID [facility] Last Admin: 06/17/19 05:45 Dose: 5,000 unit Lactated Ringer's (Lactated Ringers Solution) 1,000 mls @ 125 mls/hr IV ASDIR [facility] Last Admin: 06/17/19 05:44 Dose: 125 mls/hr Meropenem 1 gm/ Dextrose 100 mls @ 200 mls/hr IVPB BID@0600,1800 [facility] Last Admin: 06/17/19 05:58 Dose: 200 mls/hr Vancomycin HCl (Vancomycin (Pre-Docked)) 1,000 mg in 250 mls @ 166.667 mls/hr IVPB DAILY@1400 [facility]; Protocol Last Admin: 06/16/19 14:45 Dose: 166.667 mls/hr Insulin Aspart (Novolog Vial Sliding Scale -) 1 vial SQ ACHS [facility]; Protocol Last Admin: 06/17/19 06:01 Dose: Not Given Ondansetron HCl (Zofran Injection) 4 mg IVPUSH Q6H PRN PRN Reason: NAUSEA Last Admin: 06/16/19 11:26 Dose: 4 mg Pantoprazole Sodium (Protonix -) 20 mg PO DAILY [facility] Last Admin: 06/16/19 10:30 Dose: 20 mg Polyethylene Glycol (Miralax (For Daily Use) -) 17 gm PO BID [facility] Last Admin: 06/16/19 21:21 Dose: Not Given Senna (Senna -) 1 tab PO HS [facility] Last Admin: 06/16/19 21:20 Dose: 1 tab - Objective Vital Signs: Vital Signs Temperature 98 F 06/17/19 04:00 Pulse Rate 78 06/17/19 04:00 Respiratory Rate 18 06/17/19 04:00 Blood Pressure 157/67 06/17/19 04:00 O2 Sat by Pulse Oximetry (%) 99 06/14/19 13:15 Constitutional: Yes: No Distress, Calm Cardiovascular: Yes: S1, S2 Respiratory: Yes: Regular, CTA Bilaterally Gastrointestinal: Yes: Normal Bowel Sounds, Soft Musculoskeletal: Yes: WNL Extremities: Yes: WNL Neurological: Yes: Alert, Oriented Psychiatric: Yes: Alert, Oriented Labs: CBC, BMP 06/14/19 07:10 06/13/19 06:30 INR, PTT INR 1.26 (0.83-1.09) H 06/08/19 06:00 Assessment/Plan 73 year old male with past medical history of quadriplegia, neurogenic bladder with a suprapublic catheter placed, hypertension, type 2 DM, IVC filter admitted for management of his stage 4 sacral ulcer. Stage 4 Sacral Ulcer R pelvis abcess Bacteriuria Hydronephrosis T2DM Constipation Anemia Quadriplegia osteo of the sacrum plan continue abx wound care ret as per the team Problems (1) Osteomyelitis Code(s): M86.9 - OSTEOMYELITIS, UNSPECIFIED (2) Sacral decubitus ulcer, stage IV Code(s): L89.154 - PRESSURE ULCER OF SACRAL REGION, STAGE 4 (3) UTI (urinary tract infection) Code(s): N39.0 - URINARY TRACT INFECTION, SITE NOT SPECIFIED (4) Wound infection Code(s): T14.8XXA - OTHER INJURY OF UNSPECIFIED BODY REGION, INITIAL ENCOUNTER; L08.9 - LOCAL INFECTION OF THE SKIN AND SUBCUTANEOUS TISSUE, UNSP Assessment/Plan Infected Sacral ST IV DU infection/OM s/p debridement POD #4 Fever Rt pelvic abscess/loculation in gluteus UTI Neurogenic bladder with SPC DM Quadriplegia -- continue Meropenem/Vancomycin patient will be treated as osteo deven and vanco for a total of 4 weeks wound care
[2019-06-17] MEDS: VANCOMYCIN 1 GRAM (PRE-DOCKED) 1,000 MG/250 ML BAG IVPB SCH (14:01)
[2019-06-17] MEDS ORDERED: MEROPENEM 1 GM VIAL (RESTRICTED TO ID) IVPB ONE (17:44)
[2019-06-17] MEDS ORDERED: DEXTROSE 5%-WATER 100 ML IVPB ONE (17:44)
--- NOTE | 2019-06-17 18:11 | PATH ---
Surgical Pathology Report Patient Name: MAGNO DE LA TORRE Med. Rec. #: [id number] /Age/Gender: 1945 (Age: 73) / M Account: [id number] Location: [facility] MED/SURG Taken: 06/14/2019 Received: 06/14/2019 Reported: 06/17/2019 Physicians: Galina Johnson M.D. Specimen(s) Received BLADDER BIOPSY Clinical History Hydronephrosis Final Diagnosis BLADDER BIOPSY: POLYPOID UROTHELIAL MUCOSA WITH CHRONIC INFLAMMATION. SEE COMMENT. Comment: This may represent plypoid /papillary cystitis. Suggest clinical correlation. Electronically Signed Sathya Rivera M.D. Gross Description Received in formalin, labeled "bladder biopsy" are 2 kenney, irregular portions of soft tissue measuring 0.1 and 0.3 cm. in greatest dimension. The specimen is submitted in toto in one cassette. MATT/06/15/2019 summer/06/15/2019
[2019-06-17] MEDS: SENNOSIDES 8.6MG TABLET (FP) PO SCH (21:48)
--- NOTE | 2019-06-18 01:45 | PN ---
Progress Note, Physician History of Present Illness: Pt seen and examined 06/17/19 however note is being entered now bc internet was down - Current Medication List Current Medications: Active Medications Acetaminophen (Tylenol -) 650 mg PO Q6H PRN PRN Reason: FEVER Last Admin: 06/16/19 10:37 Dose: 650 mg Docusate Sodium (Colace -) 100 mg PO BID PRN PRN Reason: CONSTIPATION Gabapentin (Neurontin -) 100 mg PO DAILY PRN PRN Reason: PAIN Last Admin: 06/16/19 10:38 Dose: 100 mg Heparin Sodium (Porcine) (Heparin -) 5,000 unit SQ TID [facility] Last Admin: 06/17/19 21:47 Dose: 5,000 unit Lactated Ringer's (Lactated Ringers Solution) 1,000 mls @ 125 mls/hr IV ASDIR [facility] Last Admin: 06/17/19 21:47 Dose: 125 mls/hr Meropenem 1 gm/ Dextrose 100 mls @ 200 mls/hr IVPB BID@0600,1800 [facility] Last Admin: 06/17/19 17:46 Dose: 200 mls/hr Vancomycin HCl (Vancomycin (Pre-Docked)) 1,000 mg in 250 mls @ 166.667 mls/hr IVPB DAILY@1400 [facility]; Protocol Last Admin: 06/17/19 14:01 Dose: 166.667 mls/hr Insulin Aspart (Novolog Vial Sliding Scale -) 1 vial SQ ACHS [facility]; Protocol Last Admin: 06/17/19 22:22 Dose: Not Given Ondansetron HCl (Zofran Injection) 4 mg IVPUSH Q6H PRN PRN Reason: NAUSEA Last Admin: 06/16/19 11:26 Dose: 4 mg Pantoprazole Sodium (Protonix -) 20 mg PO DAILY [facility] Last Admin: 06/17/19 10:50 Dose: 20 mg Polyethylene Glycol (Miralax (For Daily Use) -) 17 gm PO BID [facility] Last Admin: 06/17/19 21:47 Dose: 17 gm Senna (Senna -) 1 tab PO HS [facility] Last Admin: 06/17/19 21:48 Dose: 1 tab - Objective Vital Signs: Vital Signs Temperature 98.4 F 06/17/19 22:00 Pulse Rate 72 06/17/19 22:00 Respiratory Rate 20 06/17/19 22:00 Blood Pressure 152/74 06/17/19 22:00 O2 Sat by Pulse Oximetry (%) 98 06/17/19 21:00 Labs: CBC, BMP 06/14/19 07:10 06/13/19 06:30 INR, PTT INR 1.26 (0.83-1.09) H 06/08/19 06:00 Problem List - Problems (1) Sacral decubitus ulcer, stage IV Code(s): L89.154 - PRESSURE ULCER OF SACRAL REGION, STAGE 4 (2) HTN (hypertension) Code(s): I10 - ESSENTIAL (PRIMARY) HYPERTENSION (3) Neurogenic bladder Code(s): N31.9 - NEUROMUSCULAR DYSFUNCTION OF BLADDER, UNSPECIFIED (4) Anemia Code(s): D64.9 - ANEMIA, UNSPECIFIED (5) Diabetes Code(s): E11.9 - TYPE 2 DIABETES MELLITUS WITHOUT COMPLICATIONS
[2019-06-18] MEDS ORDERED: DEXTROSE 5%-WATER 100 ML IVPB ONE ×2 (05:43→17:20)
[2019-06-18] MEDS ORDERED: MEROPENEM 1 GM VIAL (RESTRICTED TO ID) IVPB ONE ×2 (05:43→17:20)
[2019-06-18] MEDS: HEPARIN NA (PORCINE) 5,000 UNITS/ML 1ML VIAL SQ SCH ×3 (05:53→21:35)
[2019-06-18] MEDS: MEROPENEM 1 GM in DEXTROSE 5%-WATER 100 ML IVPB SCH ×2 (05:54→17:30)
[2019-06-18] MEDS: LACTATED RINGERS SOLUTION 1,000 ML IV SCH (05:54)
[2019-06-18] MEDS: INSULIN SLIDING SCALE (NOVOLOG) 1 VIAL SQ SCH ×4 (06:07→21:35)
[2019-06-18 08:41] LABS: BASO % 0.9 % (0-2.0); EOS % 8.7 % (0-4.5); HEMATOCRIT 27.8 % (35.4-49); HEMOGLOBIN 8.9 GM/dL (11.7-16.9); LYMPH % 16.9 % (8-40); MCH 24.1 pg (25.7-33.7); MCHC 32.2 g/dl (32.0-35.9); MEAN CELL VOLUME 74.9 fl (80-96); MEAN PLT VOLUME 6.1 fl (7.5-11.1); MONO % 8.7 % (3.8-10.2); NEUT % 64.8 % (42.8-82.8); PLATELET COUNT 545 K/MM3 (134-434); RBC 3.71 M/mm3 (4.00-5.60); RDW 24.6 % (11.9-15.9)
[2019-06-18 08:49] LABS: ALBUMIN 1.6 g/dl (3.4-5.0); BILIRUBIN,TOTAL 0.2 mg/dL (0.2-1); BLOOD UREA NITROGEN 7.5 mg/dL (7-18); CALCIUM 8.4 mg/dL (8.5-10.1); CREATININE 0.9 mg/dL (0.55-1.3); POTASSIUM 3.5 mmol/L (3.5-5.1)
--- NOTE | 2019-06-18 09:22 | PN ---
Progress Note, Physician History of Present Illness: stable - Current Medication List Current Medications: Active Medications Acetaminophen (Tylenol -) 650 mg PO Q6H PRN PRN Reason: FEVER Last Admin: 06/16/19 10:37 Dose: 650 mg Docusate Sodium (Colace -) 100 mg PO BID PRN PRN Reason: CONSTIPATION Gabapentin (Neurontin -) 100 mg PO DAILY PRN PRN Reason: PAIN Last Admin: 06/16/19 10:38 Dose: 100 mg Heparin Sodium (Porcine) (Heparin -) 5,000 unit SQ TID [facility] Last Admin: 06/18/19 05:53 Dose: 5,000 unit Lactated Ringer's (Lactated Ringers Solution) 1,000 mls @ 125 mls/hr IV ASDIR [facility] Last Admin: 06/18/19 05:54 Dose: 125 mls/hr Meropenem 1 gm/ Dextrose 100 mls @ 200 mls/hr IVPB BID@0600,1800 [facility] Last Admin: 06/18/19 05:54 Dose: 200 mls/hr Vancomycin HCl (Vancomycin (Pre-Docked)) 1,000 mg in 250 mls @ 166.667 mls/hr IVPB DAILY@1400 [facility]; Protocol Last Admin: 06/17/19 14:01 Dose: 166.667 mls/hr Insulin Aspart (Novolog Vial Sliding Scale -) 1 vial SQ ACHS [facility]; Protocol Last Admin: 06/18/19 06:07 Dose: Not Given Ondansetron HCl (Zofran Injection) 4 mg IVPUSH Q6H PRN PRN Reason: NAUSEA Last Admin: 06/16/19 11:26 Dose: 4 mg Pantoprazole Sodium (Protonix -) 20 mg PO DAILY [facility] Last Admin: 06/17/19 10:50 Dose: 20 mg Polyethylene Glycol (Miralax (For Daily Use) -) 17 gm PO BID [facility] Last Admin: 06/17/19 21:47 Dose: 17 gm Senna (Senna -) 1 tab PO HS [facility] Last Admin: 06/17/19 21:48 Dose: 1 tab - Objective Vital Signs: Vital Signs Temperature 99 F 06/18/19 06:00 Pulse Rate 84 06/18/19 06:00 Respiratory Rate 18 06/18/19 06:00 Blood Pressure 163/70 06/18/19 06:00 O2 Sat by Pulse Oximetry (%) 98 06/17/19 21:00 Constitutional: Yes: No Distress, Calm Cardiovascular: Yes: S1, S2 Respiratory: Yes: Regular, CTA Bilaterally Gastrointestinal: Yes: Normal Bowel Sounds, Soft Musculoskeletal: Yes: WNL Extremities: Yes: WNL Wound/Incision: Yes: Dressing Dry and Intact Neurological: Yes: Alert, Oriented Psychiatric: Yes: Alert, Oriented Labs: CBC, BMP 06/18/19 07:45 06/18/19 07:45 INR, PTT INR 1.26 (0.83-1.09) H 06/08/19 06:00 Assessment/Plan 73 year old male with past medical history of quadriplegia, neurogenic bladder with a suprapublic catheter placed, hypertension, type 2 DM, IVC filter admitted for management of his stage 4 sacral ulcer. Stage 4 Sacral Ulcer R pelvis abcess Bacteriuria Hydronephrosis T2DM Constipation Anemia Quadriplegia osteo of the sacrum plan continue abx wound care ret as per the team Problems (1) Osteomyelitis Code(s): M86.9 - OSTEOMYELITIS, UNSPECIFIED (2) Sacral decubitus ulcer, stage IV Code(s): L89.154 - PRESSURE ULCER OF SACRAL REGION, STAGE 4 (3) UTI (urinary tract infection) Code(s): N39.0 - URINARY TRACT INFECTION, SITE NOT SPECIFIED (4) Wound infection Code(s): T14.8XXA - OTHER INJURY OF UNSPECIFIED BODY REGION, INITIAL ENCOUNTER; L08.9 - LOCAL INFECTION OF THE SKIN AND SUBCUTANEOUS TISSUE, UNSP Assessment/Plan Infected Sacral ST IV DU infection/OM s/p debridement POD #4 Fever Rt pelvic abscess/loculation in gluteus UTI Neurogenic bladder with SPC DM Quadriplegia -- continue Meropenem/Vancomycin patient will be treated as osteo deven and vanco for a total of 4 weeks wound care
[2019-06-18] MEDS ORDERED: PT OWN MED DRAWER 7, Y5N ONE (09:51)
[2019-06-18] MEDS: PANTOPRAZOLE 20 MG TABLET (FP) PO SCH (10:01)
[2019-06-18] MEDS: POLYETHYLENE GLYCOL 3350 119 GM BTL PO SCH ×2 (10:55→21:34)
[2019-06-18] MEDS: VANCOMYCIN 1 GRAM (PRE-DOCKED) 1,000 MG/250 ML BAG IVPB SCH (14:06)
--- NOTE | 2019-06-18 16:37 | PN ---
Progress Note, Physician - Current Medication List Current Medications: Active Medications Acetaminophen (Tylenol -) 650 mg PO Q6H PRN PRN Reason: FEVER Last Admin: 06/16/19 10:37 Dose: 650 mg Docusate Sodium (Colace -) 100 mg PO BID PRN PRN Reason: CONSTIPATION Gabapentin (Neurontin -) 100 mg PO DAILY PRN PRN Reason: PAIN Last Admin: 06/16/19 10:38 Dose: 100 mg Heparin Sodium (Porcine) (Heparin -) 5,000 unit SQ TID [facility] Last Admin: 06/18/19 14:07 Dose: 5,000 unit Meropenem 1 gm/ Dextrose 100 mls @ 200 mls/hr IVPB BID@0600,1800 [facility] Last Admin: 06/18/19 05:54 Dose: 200 mls/hr Vancomycin HCl (Vancomycin (Pre-Docked)) 1,000 mg in 250 mls @ 166.667 mls/hr IVPB DAILY@1400 [facility]; Protocol Last Admin: 06/18/19 14:06 Dose: 166.667 mls/hr Insulin Aspart (Novolog Vial Sliding Scale -) 1 vial SQ ACHS [facility]; Protocol Last Admin: 06/18/19 11:30 Dose: Not Given Ondansetron HCl (Zofran Injection) 4 mg IVPUSH Q6H PRN PRN Reason: NAUSEA Last Admin: 06/16/19 11:26 Dose: 4 mg Pantoprazole Sodium (Protonix -) 20 mg PO DAILY [facility] Last Admin: 06/18/19 10:01 Dose: 20 mg Polyethylene Glycol (Miralax (For Daily Use) -) 17 gm PO BID [facility] Last Admin: 06/18/19 10:55 Dose: 17 gm Senna (Senna -) 1 tab PO HS [facility] Last Admin: 06/17/19 21:48 Dose: 1 tab - Objective Vital Signs: Vital Signs Temperature 97.8 F 06/18/19 14:00 Pulse Rate 67 06/18/19 14:00 Respiratory Rate 18 06/18/19 14:00 Blood Pressure 178/71 H 06/18/19 14:00 O2 Sat by Pulse Oximetry (%) 98 06/17/19 21:00 Labs: CBC, BMP 06/18/19 07:45 06/18/19 07:45 INR, PTT INR 1.26 (0.83-1.09) H 06/08/19 06:00 Problem List - Problems (1) Sacral decubitus ulcer, stage IV Code(s): L89.154 - PRESSURE ULCER OF SACRAL REGION, STAGE 4 (2) HTN (hypertension) Code(s): I10 - ESSENTIAL (PRIMARY) HYPERTENSION (3) Neurogenic bladder Code(s): N31.9 - NEUROMUSCULAR DYSFUNCTION OF BLADDER, UNSPECIFIED (4) Anemia Code(s): D64.9 - ANEMIA, UNSPECIFIED (5) Diabetes Code(s): E11.9 - TYPE 2 DIABETES MELLITUS WITHOUT COMPLICATIONS
[2019-06-18] MEDS: SENNOSIDES 8.6MG TABLET (FP) PO SCH (21:35)
[2019-06-19] MEDS ORDERED: MEROPENEM 1 GM VIAL (RESTRICTED TO ID) IVPB ONE ×2 (06:00→17:19)
[2019-06-19] MEDS ORDERED: DEXTROSE 5%-WATER 100 ML IVPB ONE ×2 (06:01→17:19)
[2019-06-19] MEDS: HEPARIN NA (PORCINE) 5,000 UNITS/ML 1ML VIAL SQ SCH ×3 (06:16→21:11)
[2019-06-19] MEDS: MEROPENEM 1 GM in DEXTROSE 5%-WATER 100 ML IVPB SCH ×2 (06:16→17:24)
[2019-06-19] MEDS: INSULIN SLIDING SCALE (NOVOLOG) 1 VIAL SQ SCH ×4 (07:34→21:11)
[2019-06-19] MEDS: POLYETHYLENE GLYCOL 3350 119 GM BTL PO SCH ×2 (09:59→21:12)
[2019-06-19] MEDS: PANTOPRAZOLE 20 MG TABLET (FP) PO SCH (10:01)
[2019-06-19] MEDS: ACETAMINOPHEN 325 MG TABLET (FP) PO PRN (13:18)
[2019-06-19] MEDS: VANCOMYCIN 1 GRAM (PRE-DOCKED) 1,000 MG/250 ML BAG IVPB SCH (13:18)
--- NOTE | 2019-06-19 13:38 | PN ---
Progress Note, Physician History of Present Illness: stable no new issues - Current Medication List Current Medications: Active Medications Acetaminophen (Tylenol -) 650 mg PO Q6H PRN PRN Reason: FEVER Last Admin: 06/19/19 13:18 Dose: 650 mg Docusate Sodium (Colace -) 100 mg PO BID PRN PRN Reason: CONSTIPATION Gabapentin (Neurontin -) 100 mg PO DAILY PRN PRN Reason: PAIN Last Admin: 06/16/19 10:38 Dose: 100 mg Heparin Sodium (Porcine) (Heparin -) 5,000 unit SQ TID [facility] Last Admin: 06/19/19 13:18 Dose: 5,000 unit Meropenem 1 gm/ Dextrose 100 mls @ 200 mls/hr IVPB BID@0600,1800 [facility] Last Admin: 06/19/19 06:16 Dose: 200 mls/hr Vancomycin HCl (Vancomycin (Pre-Docked)) 1,000 mg in 250 mls @ 166.667 mls/hr IVPB DAILY@1400 [facility]; Protocol Last Admin: 06/19/19 13:18 Dose: 166.667 mls/hr Insulin Aspart (Novolog Vial Sliding Scale -) 1 vial SQ ACHS [facility]; Protocol Last Admin: 06/19/19 11:35 Dose: Not Given Ondansetron HCl (Zofran Injection) 4 mg IVPUSH Q6H PRN PRN Reason: NAUSEA Last Admin: 06/16/19 11:26 Dose: 4 mg Pantoprazole Sodium (Protonix -) 20 mg PO DAILY [facility] Last Admin: 06/19/19 10:01 Dose: 20 mg Polyethylene Glycol (Miralax (For Daily Use) -) 17 gm PO BID [facility] Last Admin: 06/19/19 09:59 Dose: Not Given Senna (Senna -) 1 tab PO HS [facility] Last Admin: 06/18/19 21:35 Dose: 1 tab - Objective Vital Signs: Vital Signs Temperature 98.2 F 06/19/19 10:00 Pulse Rate 76 06/19/19 10:00 Respiratory Rate 18 06/19/19 10:00 Blood Pressure 150/70 06/19/19 10:00 O2 Sat by Pulse Oximetry (%) 98 06/19/19 09:00 Constitutional: Yes: No Distress, Calm Cardiovascular: Yes: S1, S2 Respiratory: Yes: Regular, CTA Bilaterally Musculoskeletal: Yes: WNL Extremities: Yes: Other Wound/Incision: Yes: Dressing Dry and Intact Neurological: Yes: Alert, Oriented Psychiatric: Yes: Alert, Oriented Labs: CBC, BMP 06/18/19 07:45 06/18/19 07:45 INR, PTT INR 1.26 (0.83-1.09) H 06/08/19 06:00 Assessment/Plan 73 year old male with past medical history of quadriplegia, neurogenic bladder with a suprapublic catheter placed, hypertension, type 2 DM, IVC filter admitted for management of his stage 4 sacral ulcer. Stage 4 Sacral Ulcer R pelvis abcess Bacteriuria Hydronephrosis T2DM Constipation Anemia Quadriplegia osteo of the sacrum plan continue abx wound care ret as per the team Problems (1) Osteomyelitis Code(s): M86.9 - OSTEOMYELITIS, UNSPECIFIED (2) Sacral decubitus ulcer, stage IV Code(s): L89.154 - PRESSURE ULCER OF SACRAL REGION, STAGE 4 (3) UTI (urinary tract infection) Code(s): N39.0 - URINARY TRACT INFECTION, SITE NOT SPECIFIED (4) Wound infection Code(s): T14.8XXA - OTHER INJURY OF UNSPECIFIED BODY REGION, INITIAL ENCOUNTER; L08.9 - LOCAL INFECTION OF THE SKIN AND SUBCUTANEOUS TISSUE, UNSP Assessment/Plan Infected Sacral ST IV DU infection/OM s/p debridement POD #4 Fever Rt pelvic abscess/loculation in gluteus UTI Neurogenic bladder with SPC DM Quadriplegia -- continue Meropenem/Vancomycin patient will be treated as osteo deven and vanco for a total of 4 weeks wound care
--- NOTE | 2019-06-19 19:03 | PN ---
Progress Note (short form) - Note Progress Note: UROLOGY NOTE- pT S/P CYSTO BLADDER BIOPSY. 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 REC: REPEAT CYSTO AND BLADDER BIOPSY IN 3 MONTHS TO R/O TCC.
[2019-06-19] MEDS: SENNOSIDES 8.6MG TABLET (FP) PO SCH (21:11)
--- NOTE | 2019-06-19 21:39 | PN ---
Progress Note, Physician History of Present Illness: No new complaints - Current Medication List Current Medications: Active Medications Acetaminophen (Tylenol -) 650 mg PO Q6H PRN PRN Reason: FEVER Last Admin: 06/19/19 13:18 Dose: 650 mg Docusate Sodium (Colace -) 100 mg PO BID PRN PRN Reason: CONSTIPATION Gabapentin (Neurontin -) 100 mg PO DAILY PRN PRN Reason: PAIN Last Admin: 06/16/19 10:38 Dose: 100 mg Heparin Sodium (Porcine) (Heparin -) 5,000 unit SQ TID [facility] Last Admin: 06/19/19 21:11 Dose: 5,000 unit Meropenem 1 gm/ Dextrose 100 mls @ 200 mls/hr IVPB BID@0600,1800 [facility] Last Admin: 06/19/19 17:24 Dose: 200 mls/hr Vancomycin HCl (Vancomycin (Pre-Docked)) 1,000 mg in 250 mls @ 166.667 mls/hr IVPB DAILY@1400 [facility]; Protocol Last Admin: 06/19/19 13:18 Dose: 166.667 mls/hr Insulin Aspart (Novolog Vial Sliding Scale -) 1 vial SQ ACHS [facility]; Protocol Last Admin: 06/19/19 21:11 Dose: Not Given Ondansetron HCl (Zofran Injection) 4 mg IVPUSH Q6H PRN PRN Reason: NAUSEA Last Admin: 06/16/19 11:26 Dose: 4 mg Pantoprazole Sodium (Protonix -) 20 mg PO DAILY [facility] Last Admin: 06/19/19 10:01 Dose: 20 mg Polyethylene Glycol (Miralax (For Daily Use) -) 17 gm PO BID [facility] Last Admin: 06/19/19 21:12 Dose: Not Given Senna (Senna -) 1 tab PO HS [facility] Last Admin: 06/19/19 21:11 Dose: 1 tab - Objective Vital Signs: Vital Signs Temperature 98.1 F 06/19/19 19:49 Pulse Rate 67 06/19/19 19:49 Respiratory Rate 20 06/19/19 19:49 Blood Pressure 163/86 06/19/19 19:49 O2 Sat by Pulse Oximetry (%) 98 06/19/19 09:00 Cardiovascular: Yes: WNL, Regular Rate and Rhythm Respiratory: Yes: WNL, Regular, CTA Bilaterally Gastrointestinal: Yes: WNL, Normal Bowel Sounds, Soft Musculoskeletal: Yes: Other ((+) stage 4 sacral ulcer) Labs: CBC, BMP 06/18/19 07:45 06/18/19 07:45 INR, PTT INR 1.26 (0.83-1.09) H 06/08/19 06:00 Problem List - Problems (1) Sacral decubitus ulcer, stage IV Assessment/Plan: Osteomyelitis S/P I&D of sacral ulcer Cont IV meropenem/vanco DC planning to SNF for IV antibxs for another 2 weeks Code(s): L89.154 - PRESSURE ULCER OF SACRAL REGION, STAGE 4 (2) HTN (hypertension) Assessment/Plan: BP elevated May need to dc IVF Code(s): I10 - ESSENTIAL (PRIMARY) HYPERTENSION (3) Neurogenic bladder Assessment/Plan: Cont soriano cath(Suprapubic) S/P cystoscopy/bladder bx wc showed chronic cystitis Code(s): N31.9 - NEUROMUSCULAR DYSFUNCTION OF BLADDER, UNSPECIFIED (4) Anemia Assessment/Plan: Monitor H/H Code(s): D64.9 - ANEMIA, UNSPECIFIED (5) Diabetes Assessment/Plan: Cont sliding scale w/ coverage Code(s): E11.9 - TYPE 2 DIABETES MELLITUS WITHOUT COMPLICATIONS
[2019-06-20] MEDS ORDERED: MEROPENEM 1 GM VIAL (RESTRICTED TO ID) IVPB ONE ×2 (06:05→17:57)
[2019-06-20] MEDS ORDERED: DEXTROSE 5%-WATER 100 ML IVPB ONE ×2 (06:05→17:57)
[2019-06-20] MEDS: MEROPENEM 1 GM in DEXTROSE 5%-WATER 100 ML IVPB SCH ×2 (06:12→18:01)
[2019-06-20] MEDS: INSULIN SLIDING SCALE (NOVOLOG) 1 VIAL SQ SCH ×4 (06:12→21:21)
[2019-06-20] MEDS: HEPARIN NA (PORCINE) 5,000 UNITS/ML 1ML VIAL SQ SCH ×3 (06:12→21:18)
--- NOTE | 2019-06-20 09:00 | PN ---
Progress Note, Physician History of Present Illness: patient stable no new issues - Current Medication List Current Medications: Active Medications Acetaminophen (Tylenol -) 650 mg PO Q6H PRN PRN Reason: FEVER Last Admin: 06/19/19 13:18 Dose: 650 mg Docusate Sodium (Colace -) 100 mg PO BID PRN PRN Reason: CONSTIPATION Gabapentin (Neurontin -) 100 mg PO DAILY PRN PRN Reason: PAIN Last Admin: 06/16/19 10:38 Dose: 100 mg Heparin Sodium (Porcine) (Heparin -) 5,000 unit SQ TID [facility] Last Admin: 06/20/19 06:12 Dose: 5,000 unit Meropenem 1 gm/ Dextrose 100 mls @ 200 mls/hr IVPB BID@0600,1800 [facility] Last Admin: 06/20/19 06:12 Dose: 200 mls/hr Vancomycin HCl (Vancomycin (Pre-Docked)) 1,000 mg in 250 mls @ 166.667 mls/hr IVPB DAILY@1400 [facility]; Protocol Last Admin: 06/19/19 13:18 Dose: 166.667 mls/hr Insulin Aspart (Novolog Vial Sliding Scale -) 1 vial SQ ACHS [facility]; Protocol Last Admin: 06/20/19 06:12 Dose: Not Given Ondansetron HCl (Zofran Injection) 4 mg IVPUSH Q6H PRN PRN Reason: NAUSEA Last Admin: 06/16/19 11:26 Dose: 4 mg Pantoprazole Sodium (Protonix -) 20 mg PO DAILY [facility] Last Admin: 06/19/19 10:01 Dose: 20 mg Polyethylene Glycol (Miralax (For Daily Use) -) 17 gm PO BID [facility] Last Admin: 06/19/19 21:12 Dose: Not Given Senna (Senna -) 1 tab PO HS [facility] Last Admin: 06/19/19 21:11 Dose: 1 tab - Objective Vital Signs: Vital Signs Temperature 98.1 F 06/19/19 19:49 Pulse Rate 67 06/19/19 19:49 Respiratory Rate 20 06/19/19 21:00 Blood Pressure 163/86 06/19/19 19:49 O2 Sat by Pulse Oximetry (%) 98 06/19/19 21:00 Constitutional: Yes: No Distress, Calm Cardiovascular: Yes: S1, S2 Respiratory: Yes: Regular, CTA Bilaterally Gastrointestinal: Yes: Normal Bowel Sounds, Soft Wound/Incision: Yes: Dressing Dry and Intact Neurological: Yes: Alert, Oriented Psychiatric: Yes: Alert, Oriented Labs: CBC, BMP 06/18/19 07:45 06/18/19 07:45 INR, PTT INR 1.26 (0.83-1.09) H 06/08/19 06:00 Assessment/Plan 73 year old male with past medical history of quadriplegia, neurogenic bladder with a suprapublic catheter placed, hypertension, type 2 DM, IVC filter admitted for management of his stage 4 sacral ulcer. Stage 4 Sacral Ulcer R pelvis abcess Bacteriuria Hydronephrosis T2DM Constipation Anemia Quadriplegia osteo of the sacrum plan continue abx wound care ret as per the team Problems (1) Osteomyelitis Code(s): M86.9 - OSTEOMYELITIS, UNSPECIFIED (2) Sacral decubitus ulcer, stage IV Code(s): L89.154 - PRESSURE ULCER OF SACRAL REGION, STAGE 4 (3) UTI (urinary tract infection) Code(s): N39.0 - URINARY TRACT INFECTION, SITE NOT SPECIFIED (4) Wound infection Code(s): T14.8XXA - OTHER INJURY OF UNSPECIFIED BODY REGION, INITIAL ENCOUNTER; L08.9 - LOCAL INFECTION OF THE SKIN AND SUBCUTANEOUS TISSUE, UNSP Assessment/Plan Infected Sacral ST IV DU infection/OM s/p debridement POD #4 Fever Rt pelvic abscess/loculation in gluteus UTI Neurogenic bladder with SPC DM Quadriplegia -- continue Meropenem/Vancomycin patient will be treated as osteo deven and vanco for a total of 4 weeks wound care
[2019-06-20] MEDS: POLYETHYLENE GLYCOL 3350 119 GM BTL PO SCH ×2 (10:55→21:18)
[2019-06-20] MEDS: PANTOPRAZOLE 20 MG TABLET (FP) PO SCH (10:56)
[2019-06-20] MEDS ORDERED: ACETAMINOPHEN 1000 MG/100 ML VIAL (NON FORMULARY) IVPB ONE (11:45)
[2019-06-20] MEDS ORDERED: ONDANSETRON 4 MG/2 ML VIAL IVPUSH PRN (12:19)
[2019-06-20] MEDS ORDERED: PROPOFOL 20 ML ONE (12:35)
[2019-06-20] MEDS ORDERED: LIDOCAINE HCL/PF 2% SDV 5ML VIAL ONE (12:39)
[2019-06-20] MEDS: VANCOMYCIN 1 GRAM (PRE-DOCKED) 1,000 MG/250 ML BAG IVPB SCH (13:57)
[2019-06-20] MEDS: LACTATED RINGERS SOLUTION 1,000 ML IV SCH (19:36)
[2019-06-20] MEDS: SENNOSIDES 8.6MG TABLET (FP) PO SCH (21:22)
--- NOTE | 2019-06-20 21:52 | PN ---
Progress Note, Physician - Current Medication List Current Medications: Active Medications Acetaminophen (Tylenol -) 650 mg PO Q6H PRN PRN Reason: FEVER Last Admin: 06/19/19 13:18 Dose: 650 mg Docusate Sodium (Colace -) 100 mg PO BID PRN PRN Reason: CONSTIPATION Fentanyl (Sublimaze Injection -) 25 mcg IVPUSH [id number] PRN PRN Reason: PAIN-PACU ORDER X 4 DOSES ONLY Gabapentin (Neurontin -) 100 mg PO DAILY PRN PRN Reason: PAIN Last Admin: 06/16/19 10:38 Dose: 100 mg Heparin Sodium (Porcine) (Heparin -) 5,000 unit SQ TID [facility] Last Admin: 06/20/19 21:18 Dose: 5,000 unit Meropenem 1 gm/ Dextrose 100 mls @ 200 mls/hr IVPB BID@0600,1800 [facility] Last Admin: 06/20/19 18:01 Dose: 200 mls/hr Vancomycin HCl (Vancomycin (Pre-Docked)) 1,000 mg in 250 mls @ 166.667 mls/hr IVPB DAILY@1400 [facility]; Protocol Last Admin: 06/20/19 13:57 Dose: 166.667 mls/hr Lactated Ringer's (Lactated Ringers Solution) 1,000 mls @ 75 mls/hr IV ASDIR [facility] Last Admin: 06/20/19 19:36 Dose: Not Given Insulin Aspart (Novolog Vial Sliding Scale -) 1 vial SQ ACHS [facility]; Protocol Last Admin: 06/20/19 21:21 Dose: Not Given Ondansetron HCl (Zofran Injection) 4 mg IVPUSH Q6H PRN PRN Reason: NAUSEA Last Admin: 06/16/19 11:26 Dose: 4 mg Ondansetron HCl (Zofran Injection) 4 mg IVPUSH Q6H PRN PRN Reason: NAUSEA AND/OR VOMITING Pantoprazole Sodium (Protonix -) 20 mg PO DAILY [facility] Last Admin: 06/20/19 10:56 Dose: Not Given Polyethylene Glycol (Miralax (For Daily Use) -) 17 gm PO BID [facility] Last Admin: 06/20/19 21:18 Dose: Not Given Senna (Senna -) 1 tab PO HS [facility] Last Admin: 06/20/19 21:22 Dose: 1 tab - Objective Vital Signs: Vital Signs Temperature 98 F 09/09/19 16:11 Pulse Rate 78 06/20/19 16:11 Respiratory Rate 22 H 06/20/19 16:11 Blood Pressure 137/72 06/20/19 16:11 O2 Sat by Pulse Oximetry (%) 98 06/19/19 21:00 Labs: CBC, BMP 06/18/19 07:45 06/18/19 07:45 INR, PTT INR 1.26 (0.83-1.09) H 06/08/19 06:00 Problem List - Problems (1) Sacral decubitus ulcer, stage IV Code(s): L89.154 - PRESSURE ULCER OF SACRAL REGION, STAGE 4 (2) HTN (hypertension) Code(s): I10 - ESSENTIAL (PRIMARY) HYPERTENSION (3) Neurogenic bladder Code(s): N31.9 - NEUROMUSCULAR DYSFUNCTION OF BLADDER, UNSPECIFIED (4) Anemia Code(s): D64.9 - ANEMIA, UNSPECIFIED (5) Diabetes Code(s): E11.9 - TYPE 2 DIABETES MELLITUS WITHOUT COMPLICATIONS
[2019-06-21] MEDS ORDERED: DEXTROSE 5%-WATER 100 ML IVPB ONE ×2 (05:13→18:04)
[2019-06-21] MEDS ORDERED: MEROPENEM 1 GM VIAL (RESTRICTED TO ID) IVPB ONE ×2 (05:13→18:04)
[2019-06-21] MEDS: HEPARIN NA (PORCINE) 5,000 UNITS/ML 1ML VIAL SQ SCH (05:39)
[2019-06-21] MEDS: MEROPENEM 1 GM in DEXTROSE 5%-WATER 100 ML IVPB SCH ×2 (05:39→18:21)
[2019-06-21] MEDS: INSULIN SLIDING SCALE (NOVOLOG) 1 VIAL SQ SCH ×4 (06:01→22:22)
--- NOTE | 2019-06-21 08:24 | DS ---
Physical Examination Vital Signs: Vital Signs Temperature 98.8 F 06/21/19 07:48 Pulse Rate 76 06/21/19 07:48 Respiratory Rate 20 06/21/19 07:48 Blood Pressure 154/80 06/21/19 07:48 O2 Sat by Pulse Oximetry (%) 98 06/20/19 21:00 Constitutional: Yes: No Distress Cardiovascular: Yes: Regular Rate and Rhythm Gastrointestinal: Yes: Soft Renal/: Yes: Rowe Present Musculoskeletal: Yes: Muscle Weakness Neurological: Yes: Pre-Existing Deficit Labs: CBC, BMP 06/18/19 07:45 06/18/19 07:45 Discharge Summary Reason For Visit: URINARY TRACT INFECTION,ABSCESS, OSTEOMYELITIS Current Active Problems Abscess (Acute) Anemia (Acute) Diabetes (Acute) HTN (hypertension) (Acute) Neurogenic bladder (Acute) Osteomyelitis (Acute) Sacral decubitus ulcer, stage IV (Acute) UTI (urinary tract infection) (Acute) Wound infection (Acute) Procedures: Principal: scans/xrays Hospital Course: osteomyelitis sacram needs 4 weeks of iv abx, picc line ordered Condition: Fair - Instructions Diet, Activity, Other Instructions: check labs weekly Disposition: [facility] - Home Medications Comprehensive Discharge Medication List: Ambulatory Orders Gabapentin 100 mg PO PRN PRN 06/06/19 Omeprazole 20 mg PO DAILY 06/06/19 Acetaminophen [Tylenol .Regular Strength -] 650 mg PO Q6H PRN tablet 06/21/19 Docusate Sodium [Colace -] 100 mg PO BID PRN capsule 06/21/19 Heparin - 5,000 unit SQ TID vial 06/21/19 Insulin Sliding Scale [Novolog Vial Sliding Scale -] 1 vial SQ ACHS units 06/21 Polyethylene Glycol 3350 [Miralax 119 gm Btl -] 17 gm PO BID bottle 06/21/19 Sennosides [Senna -] 1 tab PO HS tablet 06/21/19
--- NOTE | 2019-06-21 11:21 | PN ---
Progress Note, Physician History of Present Illness: stable no new issues - Current Medication List Current Medications: Active Medications Acetaminophen (Tylenol -) 650 mg PO Q6H PRN PRN Reason: FEVER Last Admin: 06/19/19 13:18 Dose: 650 mg Docusate Sodium (Colace -) 100 mg PO BID PRN PRN Reason: CONSTIPATION Fentanyl (Sublimaze Injection -) 25 mcg IVPUSH [id number] PRN PRN Reason: PAIN-PACU ORDER X 4 DOSES ONLY Gabapentin (Neurontin -) 100 mg PO DAILY PRN PRN Reason: PAIN Last Admin: 06/16/19 10:38 Dose: 100 mg Heparin Sodium (Porcine) (Heparin -) 5,000 unit SQ TID [facility] Last Admin: 06/21/19 05:39 Dose: 5,000 unit Meropenem 1 gm/ Dextrose 100 mls @ 200 mls/hr IVPB BID@0600,1800 [facility] Last Admin: 06/21/19 05:39 Dose: 200 mls/hr Vancomycin HCl (Vancomycin (Pre-Docked)) 1,000 mg in 250 mls @ 166.667 mls/hr IVPB DAILY@1400 [facility]; Protocol Last Admin: 06/20/19 13:57 Dose: 166.667 mls/hr Lactated Ringer's (Lactated Ringers Solution) 1,000 mls @ 75 mls/hr IV ASDIR [facility] Last Admin: 06/20/19 19:36 Dose: Not Given Insulin Aspart (Novolog Vial Sliding Scale -) 1 vial SQ [facility]; Protocol Last Admin: 06/21/19 06:01 Dose: Not Given Ondansetron HCl (Zofran Injection) 4 mg IVPUSH Q6H PRN PRN Reason: NAUSEA Last Admin: 06/16/19 11:26 Dose: 4 mg Ondansetron HCl (Zofran Injection) 4 mg IVPUSH Q6H PRN PRN Reason: NAUSEA AND/OR VOMITING Pantoprazole Sodium (Protonix -) 20 mg PO DAILY [facility] Last Admin: 06/20/19 10:56 Dose: Not Given Polyethylene Glycol (Miralax (For Daily Use) -) 17 gm PO BID [facility] Last Admin: 06/20/19 21:18 Dose: Not Given Senna (Senna -) 1 tab PO [facility] Last Admin: 06/20/19 21:22 Dose: 1 tab - Objective Vital Signs: Vital Signs Temperature 98.8 F 06/21/19 07:48 Pulse Rate 76 06/21/19 07:48 Respiratory Rate 20 06/21/19 07:48 Blood Pressure 154/80 06/21/19 07:48 O2 Sat by Pulse Oximetry (%) 98 06/20/19 21:00 Constitutional: Yes: No Distress, Calm Cardiovascular: Yes: S1, S2 Respiratory: Yes: Regular, CTA Bilaterally Gastrointestinal: Yes: Normal Bowel Sounds, Soft Musculoskeletal: Yes: WNL Extremities: Yes: Other Wound/Incision: Yes: Dressing Dry and Intact Neurological: Yes: Alert, Oriented Psychiatric: Yes: Alert, Oriented Labs: CBC, BMP 06/18/19 07:45 06/18/19 07:45 INR, PTT INR 1.26 (0.83-1.09) H 06/08/19 06:00 Assessment/Plan 73 year old male with past medical history of quadriplegia, neurogenic bladder with a suprapublic catheter placed, hypertension, type 2 DM, IVC filter admitted for management of his stage 4 sacral ulcer. Stage 4 Sacral Ulcer R pelvis abcess Bacteriuria Hydronephrosis T2DM Constipation Anemia Quadriplegia osteo of the sacrum plan continue abx wound care ret as per the team Problems (1) Osteomyelitis Code(s): M86.9 - OSTEOMYELITIS, UNSPECIFIED (2) Sacral decubitus ulcer, stage IV Code(s): L89.154 - PRESSURE ULCER OF SACRAL REGION, STAGE 4 (3) UTI (urinary tract infection) Code(s): N39.0 - URINARY TRACT INFECTION, SITE NOT SPECIFIED (4) Wound infection Code(s): T14.8XXA - OTHER INJURY OF UNSPECIFIED BODY REGION, INITIAL ENCOUNTER; L08.9 - LOCAL INFECTION OF THE SKIN AND SUBCUTANEOUS TISSUE, UNSP Assessment/Plan Infected Sacral ST IV DU infection/OM s/p debridement POD #4 Fever Rt pelvic abscess/loculation in gluteus UTI Neurogenic bladder with SPC DM Quadriplegia -- continue Meropenem/Vancomycin patient will be treated as osteo deven and vanco for a total of 4 weeks wound care
[2019-06-21] MEDS: GABAPENTIN 100 MG CAPSULE (FP) PO PRN (11:35)
[2019-06-21] MEDS: PANTOPRAZOLE 20 MG TABLET (FP) PO SCH (11:35)
[2019-06-21] MEDS: ACETAMINOPHEN 325 MG TABLET (FP) PO PRN (11:47)
[2019-06-21] MEDS: POLYETHYLENE GLYCOL 3350 119 GM BTL PO SCH ×2 (11:49→22:22)
[2019-06-21] MEDS: LACTATED RINGERS SOLUTION 1,000 ML IV SCH (14:01)
[2019-06-21] MEDS: VANCOMYCIN 1 GRAM (PRE-DOCKED) 1,000 MG/250 ML BAG IVPB SCH (15:06)
[2019-06-21] MEDS: SENNOSIDES 8.6MG TABLET (FP) PO SCH (22:22)
[2019-06-22] MEDS ORDERED: MEROPENEM 1 GM VIAL (RESTRICTED TO ID) IVPB ONE (05:57)
[2019-06-22] MEDS ORDERED: DEXTROSE 5%-WATER 100 ML IVPB ONE (05:58)
[2019-06-22] MEDS: MEROPENEM 1 GM in DEXTROSE 5%-WATER 100 ML IVPB SCH (06:09)
[2019-06-22] MEDS: INSULIN SLIDING SCALE (NOVOLOG) 1 VIAL SQ SCH ×2 (06:17→11:42)
[2019-06-22] MEDS ORDERED: NYSTATIN/TRIAMCINOLONE TOPICAL CREAM 15 GM TUBE TP SCH (10:00)
--- NOTE | 2019-06-22 10:46 | PN ---
Progress Note, Physician History of Present Illness: stable no new issues - Current Medication List Current Medications: Active Medications Acetaminophen (Tylenol -) 650 mg PO Q6H PRN PRN Reason: FEVER Last Admin: 06/21/19 11:47 Dose: 650 mg Docusate Sodium (Colace -) 100 mg PO BID PRN PRN Reason: CONSTIPATION Fentanyl (Sublimaze Injection -) 25 mcg IVPUSH [id number] PRN PRN Reason: PAIN-PACU ORDER X 4 DOSES ONLY Gabapentin (Neurontin -) 100 mg PO DAILY PRN PRN Reason: PAIN Last Admin: 06/21/19 11:35 Dose: 100 mg Lactated Ringer's (Lactated Ringers Solution) 1,000 mls @ 75 mls/hr IV ASDIR [facility] Last Admin: 06/21/19 14:01 Dose: Not Given Meropenem 1 gm/ Dextrose 100 mls @ 200 mls/hr IVPB BID@0600,1800 [facility] Last Admin: 06/22/19 06:09 Dose: 200 mls/hr Vancomycin HCl (Vancomycin (Pre-Docked)) 1,000 mg in 250 mls @ 166.667 mls/hr IVPB DAILY@1400 [facility]; Protocol Last Admin: 06/21/19 15:06 Dose: 166.667 mls/hr Insulin Aspart (Novolog Vial Sliding Scale -) 1 vial SQ ACHS [facility]; Protocol Last Admin: 06/22/19 06:17 Dose: Not Given Nystatin/Triamcinolone Acetonide (Mycolog Ii Cream -) 2 applic TP BID [facility] Ondansetron HCl (Zofran Injection) 4 mg IVPUSH Q6H PRN PRN Reason: NAUSEA Last Admin: 06/16/19 11:26 Dose: 4 mg Ondansetron HCl (Zofran Injection) 4 mg IVPUSH Q6H PRN PRN Reason: NAUSEA AND/OR VOMITING Pantoprazole Sodium (Protonix -) 20 mg PO DAILY [facility] Last Admin: 06/21/19 11:35 Dose: 20 mg Polyethylene Glycol (Miralax (For Daily Use) -) 17 gm PO BID [facility] Last Admin: 06/21/19 22:22 Dose: 17 gm Senna (Senna -) 1 tab PO HS [facility] Last Admin: 06/21/19 22:22 Dose: 1 tab - Objective Vital Signs: Vital Signs Temperature 98.6 F 06/22/19 09:01 Pulse Rate 81 06/22/19 09:01 Respiratory Rate 18 06/22/19 09:01 Blood Pressure 147/68 06/22/19 09:01 O2 Sat by Pulse Oximetry (%) 98 06/21/19 21:00 Constitutional: Yes: No Distress, Calm Cardiovascular: Yes: S1, S2 Respiratory: Yes: Regular, CTA Bilaterally Gastrointestinal: Yes: Normal Bowel Sounds, Soft Musculoskeletal: Yes: WNL Extremities: Yes: WNL Wound/Incision: Yes: Dressing Dry and Intact Neurological: Yes: Alert, Oriented Psychiatric: Yes: Alert, Oriented Labs: CBC, BMP 06/18/19 07:45 06/18/19 07:45 INR, PTT INR 1.26 (0.83-1.09) H 06/08/19 06:00 Assessment/Plan 73 year old male with past medical history of quadriplegia, neurogenic bladder with a suprapublic catheter placed, hypertension, type 2 DM, IVC filter admitted for management of his stage 4 sacral ulcer. Stage 4 Sacral Ulcer R pelvis abcess Bacteriuria Hydronephrosis T2DM Constipation Anemia Quadriplegia osteo of the sacrum plan continue abx wound care ret as per the team Problems (1) Osteomyelitis Code(s): M86.9 - OSTEOMYELITIS, UNSPECIFIED (2) Sacral decubitus ulcer, stage IV Code(s): L89.154 - PRESSURE ULCER OF SACRAL REGION, STAGE 4 (3) UTI (urinary tract infection) Code(s): N39.0 - URINARY TRACT INFECTION, SITE NOT SPECIFIED (4) Wound infection Code(s): T14.8XXA - OTHER INJURY OF UNSPECIFIED BODY REGION, INITIAL ENCOUNTER; L08.9 - LOCAL INFECTION OF THE SKIN AND SUBCUTANEOUS TISSUE, UNSP Assessment/Plan Infected Sacral ST IV DU infection/OM s/p debridement POD #4 Fever Rt pelvic abscess/loculation in gluteus UTI Neurogenic bladder with SPC DM Quadriplegia -- continue Meropenem/Vancomycin deven and vanco for a total of 4 weeks wound care follow vanco levels
[2019-06-22] MEDS: ACETAMINOPHEN 325 MG TABLET (FP) PO PRN (11:33)
[2019-06-22] MEDS: GABAPENTIN 100 MG CAPSULE (FP) PO PRN (11:34)
[2019-06-22] MEDS: PANTOPRAZOLE 20 MG TABLET (FP) PO SCH (11:39)
[2019-06-22] MEDS: POLYETHYLENE GLYCOL 3350 119 GM BTL PO SCH (11:42)
[2019-06-22] MEDS: LACTATED RINGERS SOLUTION 1,000 ML IV SCH (15:18)
[2019-06-22] MEDS: VANCOMYCIN 1 GRAM (PRE-DOCKED) 1,000 MG/250 ML BAG IVPB SCH (15:19)
[2019-06-22 15:37] VITALS: BP 151/53; PULSE 65; TEMP 98.3
== END 2019-06-22 15:37 | DRG 622 ==
LOC: JER 12:29 → JERBED 20:02 → J8W 06-07 16:12
PROVIDERS: ADMIT Internal Medicine; ATTEND Internal Medicine
PROC: 0TBB4ZX Excision of Bladder, Percutaneous Endoscopic Approach, Diagnostic (ICD-10-PCS; principal; 2019-06-09)
PROC: 0JB70ZZ Excision of Back Subcutaneous Tissue and Fascia, Open Approach (ICD-10-PCS; 2019-06-09)
PROC: 0QB10ZZ Excision of Sacrum, Open Approach (ICD-10-PCS; 2019-06-09)
PROC: B518ZZA Fluoroscopy of Superior Vena Cava, Guidance (ICD-10-PCS; 2019-06-09)
PROC: 02HV33Z Insertion of Infusion Device into Superior Vena Cava, Percutaneous Approach (ICD-10-PCS; 2019-06-09)
PROC: 30233N1 Transfusion of Nonautologous Red Blood Cells into Peripheral Vein, Percutaneous Approach (ICD-10-PCS; 2019-06-09)
DX: E11.69 Type 2 diabetes mellitus with other specified complication (principal); L89.154 Pressure ulcer of sacral region, stage 4; K65.1 Peritoneal abscess; M46.28 Osteomyelitis of vertebra, sacral and sacrococcygeal region; N13.30 Unspecified hydronephrosis; R64 Cachexia; N30.00 Acute cystitis without hematuria; G82.50 Quadriplegia, unspecified; N17.9 Acute kidney failure, unspecified; K59.09 Other constipation; N31.9 Neuromuscular dysfunction of bladder, unspecified; D72.829 Elevated white blood cell count, unspecified; D64.9 Anemia, unspecified; E11.21 Type 2 diabetes mellitus with diabetic nephropathy; Z68.21 Body mass index [BMI] 21.0-21.9, adult; I12.9 Hypertensive chronic kidney disease with stage 1 through stage 4 chronic kidney disease, or unspecified chronic kidney disease; E11.22 Type 2 diabetes mellitus with diabetic chronic kidney disease; N18.9 Chronic kidney disease, unspecified; D49.4 Neoplasm of unspecified behavior of bladder; B96.1 Klebsiella pneumoniae [K. pneumoniae] as the cause of diseases classified elsewhere; S31.000A Unspecified open wound of lower back and pelvis without penetration into retroperitoneum, initial encounter; L08.9 Local infection of the skin and subcutaneous tissue, unspecified; B96.4 Proteus (mirabilis) (morganii) as the cause of diseases classified elsewhere; Z88.0 Allergy status to penicillin
CPT/HCPCS: 36415; 36430; 36511; 36569; 72195-TC; 74177-TC; 77001-TC-FY; 78708-TC; 80048; 80053; 81003; 82728; 82962; 83036; 83540; 83550; 83605; 83735; 84100; 85025; 85027; 85610; 85730; 86850; 86900; 86901; 86922; 87040; 87070; 87086; 87186; 87205; 88305-TC; 90670; 93005; 93010; 94760; 97161-GP; 99285-25; A9562; C1751; G0480; J0131; J1644; J7030; P9038; P9058

== ENCOUNTER 2019-08-31 10:59 | Day surgery (SDC) | payer MEDICARE, OTHER ==
[2019-08-31] MEDS ORDERED: PROPOFOL 20 ML ONE (15:15)
[2019-08-31] MEDS ORDERED: KETOROLAC TROMETHAMINE 30 MG/1 ML VIAL ONE (15:16)
[2019-08-31] MEDS ORDERED: SODIUM CHLORIDE 0.9% P/F 10 ML VIAL IJ ONE (15:16)
[2019-08-31] MEDS ORDERED: ceFAZolin SODIUM 1 GM VIAL ONE (15:16)
[2019-08-31] MEDS ORDERED: LIDOCAINE HCL/PF 2% SDV 5ML VIAL ONE (15:16)
[2019-08-31] MEDS ORDERED: DEXAMETHASONE SOD PHOSPHATE 4 MG/1 ML VIAL ONE (15:16)
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
[2019-08-31] MEDS ORDERED: ceFAZolin SODIUM 1 GM VIAL IVPB ONE (16:00)
[2019-08-31] MEDS ORDERED: ePHEDrine SULFATE 50 MG/1 ML AMPULE ONE (16:09)
[2019-08-31] MEDS ORDERED: ONDANSETRON 4 MG/2 ML VIAL IVPUSH PRN (16:38)
[2019-08-31] MEDS ORDERED: LACTATED RINGERS SOLUTION 1,000 ML IV SCH (16:45)
--- NOTE | 2019-08-31 16:55 | OP ---
Operative Note - Note: Operative Date: 08/31/19 Pre-Operative Diagnosis: Gross hematuria, suprapubic tract disruption, bladder tumor (extensive) Operation: Cystoscopy TURBT fulguration of bleeding bladder, revision of suprapubic tract, exchange of suprapubic soriano to 24 fr 10cc Findings: Extensive papillary lesion at dome of and right lateral wall bladder with extensive bleeding. Unable to visualize ureteral orifices. Disruption of suprapubic tract with bleeding granulation tissue/blocked suprapubic soriano. Surgeon: Mansi Sutherland Anesthesia: General Specimens Removed: bladder tumor and suprapubic tract tissue Drains & Tubes with Location: 24 fr 10 cc suprapubic soriano Blood Volume Replaced (mls): 0 Fluid Volume Replaced (mls): 0 Operative Report Dictated: Yes
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
[2019-08-31 19:20] VITALS: BP 126/59; PULSE 71; TEMP 97.9
--- NOTE | 2019-09-02 15:06 | PATH ---
Surgical Pathology Report Patient Name: MAGNO DE LA TORRE [facility]. Rec. #: [id number] /Age/Gender: 1945 (Age: 73) / M Account: [id number] Location: [facility] Taken: 08/31/2019 Received: 09/01/2019 Reported: 09/02/2019 Physicians: Mansi Sutherland M.D. Specimen(s) Received A: SUPRAPUBIC TRACT TISSUE B: BLADDER TUMOR Clinical History Bladder tumor Final Diagnosis A. SUPRAPUBIC TRACT TISSUE, BIOPSY: FRAGMENTS OF INFLAMED GRANULATION TISSUE AND ACUTELY INFLAMED BENIGN SQUAMOUS MUCOSA. B. BLADDER TUMOR, TRANSURETHRAL RESECTION OF BLADDER TUMOR: HIGH GRADE PAPILLARY UROTHELIAL CARCINOMA, NON-INVASIVE. NO MUSCULARIS PROPRIA IDENTIFIED. NO FLAT CARCINOMA IN SITU (CIS) IDENTIFIED. Comment: Findings relayed to Alex from Dr. Sutherland's office. Electronically Signed Lani Bailey M.D. Gross Description A. Received in formalin labeled "suprapubic tract tissue," is a 0.6 x 0.6 x 0.1 cm aggregate of kenney soft tissue fragments. The specimen is submitted in toto in one cassette. B. Received in formalin labeled "bladder tumor," is a 4.0 x 3.7 x 0.5 cm aggregate of kenney soft tissue fragments. The formalin is filtered and the specimen is entirely submitted in 4 cassettes. DL/09/01/2019 saudi09/01/2019
== END 2019-08-31 19:10 ==
LOC: JASU-SURG 10:59
PROVIDERS: ATTEND Urology
PROC: 0T9B30Z Drainage of Bladder with Drainage Device, Percutaneous Approach (ICD-10-PCS; principal; 2019-08-31 13:00)
PROC: 0T5B8ZZ Destruction of Bladder, Via Natural or Artificial Opening Endoscopic (ICD-10-PCS; 2019-08-31 13:00)
DX: T83.89XA Other specified complication of genitourinary prosthetic devices, implants and grafts, initial encounter (principal); N31.8 Other neuromuscular dysfunction of bladder; R31.0 Gross hematuria; G82.50 Quadriplegia, unspecified; C67.8 Malignant neoplasm of overlapping sites of bladder; I10 Essential (primary) hypertension; K21.9 Gastro-esophageal reflux disease without esophagitis; E11.9 Type 2 diabetes mellitus without complications; D64.9 Anemia, unspecified
CPT/HCPCS: 51710; 52235; C2627; 82962; 88305-TC; 88307-TC; 94760

== ENCOUNTER 2019-09-22 20:36 | Inpatient (IN) | payer MEDICARE, OTHER ==
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
--- NOTE | 2019-09-22 21:34 | PDOC ---
Attending Attestation - Resident Resident Name: OfeliajenisehussainEva - ED Attending Attestation I have performed the following: I have examined & evaluated the patient, The case was reviewed & discussed with the resident, I agree w/resident's findings & plan, Exceptions are as noted - HPI HPI: 09/22/19 21:34 Mr. Reardon is a 73 year old male with past medical history of quadriplegia, neurogenic bladder with a suprapublic catheter (recent cystoscopy with extensive papillary lesion at dome of and right lateral wall bladder s/p fulguration of bleeding), HTN, NIDDM, IVC Filter who presents to the ER from [facility] due to abdominal pain Pt reports that he has had months of abdominal pain (he can not narrow down the time frame) Pt can not tell me how long he had pain, can not describe it or rate he pain he does say pain is worse with eating anything, or palpation of the lower abdomen Apparently an x ray was performed yesterday and demonstrated distended loop of bowel Pt sent to the ER fr assessment Today, pt had 3 episodes of vomiting No fevers or chills 09/22/19 21:35 09/22/19 21:50 - Physicial Exam PE: 09/22/19 21:33 GENERAL: The patient is in no acute distress. ENT: Ears normal, nares patent, oropharynx clear without exudates. Moist mucous membranes. No tonsillar enlargement, no exudates NECK: Normal range of motion, supple, no nuchal rigidity (+) LAD LUNGS: Breath sounds equal, clear to auscultation bilaterally. No wheezes, and no crackles. HEART:Regular rate and rhythm, normal S1 and S2 without murmur, rub or gallop. ABDOMEN: Soft, nontender, normoactive bowel sounds. EXTREMITIES: Normal range of motion, no edema. NEUROLOGICAL: Cranial nerves II through XII grossly intact. Normal speech. No focal neurological deficits. SKIN: Warm, Dry, normal turgor, no rashes or lesions noted. - Medical Decision Making 09/22/19 21:37 73 yo m presenting with abdominal pain, vomiting, abnormalities seen on Xray performed yesterday Will do: Labs EKG CXR CT abd Anti emetics IV hydration admit 09/22/19 22:25 EKG: NSR rate of 61 bpm, xis nml, no st elevations or depressions t wave inversion v5 , artifact v6 (t waves upright in EKG from may 2019) 09/22/19 22:27 Laboratory Tests 06/08/19 06/18/19 09/22/19 06:00 07:45 21:35 WBC 8.0 8.0 Hgb 8.9 L 8.9 L Hct 27.8 L 27.8 L Plt Count 545 H D 377 D PT with INR 14.90 H INR 1.26 H PTT (Actin FS) 27.5 Sodium Potassium Chloride BUN Creatinine Random Glucose Lactic Acid Creatine Kinase Troponin I Albumin Total Amylase Lipase 09/22/19 09/22/19 09/22/19 21:35 21:35 21:35 WBC Hgb Hct Plt Count PT with INR INR PTT (Actin FS) Sodium 141 Potassium 5.0 Chloride 112 H BUN 41.4 H Creatinine 1.1 Random Glucose 119 H Lactic Acid Creatine Kinase 56 Troponin I < 0.02 Albumin 1.8 L Total Amylase 51 Lipase 99 09/22/19 21:35 WBC Hgb Hct Plt Count PT with INR INR PTT (Actin FS) Sodium Potassium Chloride BUN Creatinine Random Glucose Lactic Acid 1.5 Creatine Kinase Troponin I Albumin Total Amylase Lipase CT pending 09/23/19 00:21 EXAM: ABDOMEN \T\ PELVIS CT W/O CONTR HISTORY: Colonic ileus COMPARISON: None. FINDINGS: Lung bases are clear. The visualized cardiac chambers are normal size and configuration. Gallstones are noted without gallbladder inflammation or biliary duct dilation. 7.6 cm exophytic right renal cyst is noted. No renal stones or hydronephrosis. A few punctate pancreatic calcifications suggest chronic pancreatitis without acute inflammation. Normal unenhanced liver, spleen, adrenal glands. Surgical sutures are noted in the lesser curvature of the stomach and adjacent to the duodenum which should be correlated with known surgical history. No bowel obstruction, but there is moderate gas distention of the right-sided colon up to 5.3 cm and there was a moderate amount of diffuse solid stool. Rectal inflammation indicates proctitis, unclear if adjacent to adjacent sacral decubitus ulcer. There is no aortic aneurysm. There is no significant retroperitoneal lymphadenopathy. Infrarenal IVC filter is noted. The appendix is normal. The urinary bladder is partially collapsed by a suprapubic catheter. There is mild bladder wall thickening which could indicate cystitis. Prostate gland is not enlarged. No pelvic free fluid is identified. There is no significant pelvic lymphadenopathy. Prominent sacral decubitus ulcer is noted, and the patient appears to have undergone prior coccygeal resection. No definite CT findings for osteomyelitis. Soft tissue edema could represent cellulitis but there is no obvious fluid collection although evaluation is limited without contrast. IMPRESSION: Moderate gas distention of the right-sided colon and moderate amount of diffuse solid stool but no edy bowel obstruction. Mild rectal inflammation, possible related to adjacent sacral decubitus ulcer and cellulitis, without definite abscess, although evaluation is limited without contrast. Possible cystitis can be correlated with urinalysis. Gallstones. Probable mild chronic pancreatitis for 09/24/19 22:17 Will plan to admit
[2019-09-22] MEDS ORDERED: SODIUM CHLORIDE 1,000 ML IV STA (21:41)
[2019-09-22 21:58] LABS: BASO % 0.9 % (0-2.0); EOS % 11.9 % (0-4.5); HEMATOCRIT 27.8 % (35.4-49); HEMOGLOBIN 8.9 GM/dL (11.7-16.9); LYMPH % 19.1 % (8-40); MCH 26.9 pg (25.7-33.7); MCHC 31.9 g/dl (32.0-35.9); MEAN CELL VOLUME 84.2 fl (80-96); MEAN PLT VOLUME 6.4 fl (7.5-11.1); MONO % 8.7 % (3.8-10.2); NEUT % 59.4 % (42.8-82.8); PLATELET COUNT 377 K/MM3 (134-434); RDW 15.7 % (11.9-15.9)
[2019-09-22 22:05] LABS: EPI CELLS 2.5 /HPF (0-5/HPF); HYALINE CASTS 23 /lpf (0-8); URINE APPEARANCE TURBID; URINE BACTERIA 367.4 /hpf (NEGATIVE); URINE BILIRUBIN NEGATIVE (NEGATIVE); URINE COLOR ORANGE; URINE GLUCOSE (UA) NEGATIVE (NEGATIVE); URINE KETONE NEGATIVE (NEGATIVE); URINE LEUK ESTERASE 3+ (NEGATIVE); URINE NITRITE NEGATIVE (NEGATIVE); URINE PROTEIN 3+ (NEGATIVE); URINE RBC 414 /hpf (0-4); URINE UROBILINOGEN 0.2 mg/dL (0.2-1.0); URINE WBC 250 /hpf (0-5)
[2019-09-22 22:20] LABS: ALBUMIN 1.8 g/dl (3.4-5.0); BILIRUBIN,TOTAL 0.1 mg/dL (0.2-1); BLOOD UREA NITROGEN 41.4 mg/dL (7-18); CALCIUM 8.7 mg/dL (8.5-10.1); CREATININE 1.1 mg/dL (0.55-1.3)
[2019-09-22 23:08] LABS: YEAST FEW (NEGATIVE)
--- NOTE | 2019-09-22 23:50 | PDOC ---
*Physical Exam - Vital Signs Last Vital Signs Temp Pulse Resp BP Pulse Ox 98.1 F 74 18 115/71 100 09/22/19 20:52 09/22/19 20:52 09/22/19 20:52 09/22/19 20:52 09/22/19 20:52 - Physical Exam General Appearance: Yes: Nourished, Disheveled, Mild Distress Neck: positive: Supple. negative: Tender, Decreased range of motion, Lymphadenopathy (R), Lymphadenopathy (L) Respiratory/Chest: positive: Lungs Clear, Normal Breath Sounds. negative: Chest Tender, Respiratory Distress, Crackles, Rales, Rhonchi, Stridor Cardiovascular: positive: Regular Rhythm, Regular Rate Gastrointestinal/Abdominal: positive: Flat, Soft, Decreased BS. negative: Tender, Pulsatile Mass, Guarding, Rebound Musculoskeletal: positive: Normal Inspection Extremity: positive: Normal Capillary Refill, Normal Inspection. negative: Normal Range of Motion (paralysis of LUE and BLE) Integumentary: positive: Normal Color, Dry, Warm Neurologic: positive: Alert, Normal Mood/Affect, Normal Response ED Treatment Course - LABORATORY CBC & Chemistry Diagram: 09/24/19 07:05 09/24/19 06:00 - ADDITIONAL ORDERS Additional order review: Laboratory Results 09/22/19 09/22/19 09/22/19 21:40 21:35 21:35 Sodium Potassium Chloride Carbon Dioxide Anion Gap BUN Creatinine Est GFR (CKD-EPI)AfAm Est GFR (CKD-EPI)NonAf Random Glucose Lactic Acid 1.5 Calcium Total Bilirubin AST ALT Alkaline Phosphatase Creatine Kinase 56 Troponin I < 0.02 Total Protein Albumin Total Amylase Lipase Urine Color Conception Urine Appearance Turbid Urine pH 6.0 Ur Specific [place] 1.014 Urine Protein 3+ H Urine Glucose (UA) Negative Urine Ketones Negative Urine Blood 3+ H Urine Nitrite Negative Urine Bilirubin Negative Urine Urobilinogen 0.2 Ur Leukocyte Esterase 3+ H Urine WBC (Auto) 250 Urine RBC (Auto) 414 Urine Casts (Auto) 23 U Pathogenic Cast Auto None seen U Epithel Cells (Auto) 2.5 Urine Bacteria (Auto) 367.4 Urine Yeast (Auto) Few 09/22/19 09/22/19 21:35 21:35 Sodium 141 Potassium 5.0 Chloride 112 H Carbon Dioxide 26 Anion Gap 4 L BUN 41.4 H Creatinine 1.1 Est GFR (CKD-EPI)AfAm 75.71 Est GFR (CKD-EPI)NonAf 65.32 Random Glucose 119 H Lactic Acid Calcium 8.7 Total Bilirubin 0.1 L AST 13 L ALT 13 Alkaline Phosphatase 71 Creatine Kinase Troponin I Total Protein 6.0 L Albumin 1.8 L Total Amylase 51 Lipase 99 Urine Color Urine Appearance Urine pH Ur Specific [place] Urine Protein Urine Glucose (UA) Urine Ketones Urine Blood Urine Nitrite Urine Bilirubin Urine Urobilinogen Ur Leukocyte Esterase Urine WBC (Auto) Urine RBC (Auto) Urine Casts (Auto) U Pathogenic Cast Auto U Epithel Cells (Auto) Urine Bacteria (Auto) Urine Yeast (Auto) 09/22/19 21:35 RBC 3.30 L MCV 84.2 MCHC 31.9 L RDW 15.7 D MPV 6.4 L Neutrophils % 59.4 Lymphocytes % 19.1 Monocytes % 8.7 Eosinophils % 11.9 H Basophils % 0.9 Medical Decision Making - Medical Decision Making 09/22/19 23:48 Signed out to me by Dr. Mares. From [facility], [facility] quadriplegia, neurogenic bladder, suprapubic catheter, HTN, T2DM , IVC filter, chronic sacral ulcer Has had vague abd pain few months, worse last 3 days. 3x N/V No PO intake since last night XR at [facility]: worsening colonic distension CT abd/pelvis w/o contrast Labs WNL UA 3+ blood/LE/proteins chronically [X] CT results [] admit [place] 09/23/19 01:25 CT shows diffuse stool burden with some proctitis, possibly related to sacral ulcer but hard to see w/o contrast. Unable to get CT w/ contrast 2/2 inability to consent patient for IV contrast, unable to take PO 2/2 nausea. Discussed with patient, okay to be admitted for evaluation. Discussed case with claire Gonzalez for Med Surg admission under Dr. Branch. Discharge - Discharge Information Problems reviewed: Yes Clinical Impression/Diagnosis: Ileus, unspecified, Proctitis Abdominal pain Qualifiers: Abdominal location: generalized Qualified Code(s): R10.84 - Generalized abdominal pain Condition: Stable - Follow up/Referral - Patient Discharge Instructions - Post Discharge Activity
--- NOTE | 2019-09-23 02:13 | HP ---
Admitting History and Physical - Primary Care Physician PCP: Yajaira Martinez ([facility]) - Admission Chief Complaint: Abdominal Pain, Nausea, Vomiting History of Present Illness: This is a 73 y/o man from [facility] with a past medical history of Quadriplegia, Neurogenic Bladder with a suprapublic catheter (recent cystoscopy with extensive papillary lesion at dome of and right lateral wall bladder s/p fulguration of bleeding), HTN, NIDDM, IVC Filter. Who presents to the ED for abdominal pain. Patient reports that he has had several months of abdominal pain , unable to specify timeframe. Patient could not elaborate on how long he had the abdominal pain, he could not describe it or rate the pain. He does report that the pain is worse with eating , or palpation of the lower abdomen. Patient reports 3 episodes of NBNB emesis started yesterday. Patient had an abdominal X-ray done at [facility] yesterday morning which showed: progressive colonic ileus (from prior imaging 09/13/19), development of a distended viscus up to 17.3cm, which appears to reflect localized colonic distension History Source: Patient, Transfer Record Limitations to Obtaining History: Clinical Condition, Language Barrier (Telugu , Cactus line used #[id number]), Poor Historian - Past Medical History Cardiovascular: Yes: HTN Renal/: Yes: Hematuria, Neurogenic Bladder Infectious Disease: Yes: Other (ESBL/Pseudomonas- Urine) Musculoskeletal: Yes: Other (Quadriplegia) Endocrine: Yes: Diabetes Mellitus - Past Surgical History Additional Past Surgical History: extensive bladder sx IVC Filter Suprapubic Catheter Cystoscopy - Smoking History Smoking history: Smoker current status UNK Have you smoked in the past 12 months: No - Alcohol/Substance Use Hx Alcohol Use: No - Social History Usual Living Arrangement: Yes: Intermediate ADL: Support Services History of Recent Travel: No Home Medications - Allergies Allergies/Adverse Reactions: Allergies Allergy/AdvReac Type Severity Reaction Status Date / Time ciprofloxacin Allergy Verified 09/22/19 20:52 piperacillin [From Zosyn] Allergy Verified 09/22/19 20:52 tazobactam [From Zosyn] Allergy Verified 09/22/19 20:52 Penicillins AdvReac Verified 09/22/19 20:52 - Home Medications Home Medications: Ambulatory Orders Gabapentin 100 mg PO PRN PRN 06/06/19 Omeprazole 20 mg PO DAILY 06/06/19 Acetaminophen [Tylenol .Regular Strength -] 650 mg PO Q6H PRN tablet 06/21/19 Heparin - 5,000 unit SQ TID vial 06/21/19 Polyethylene Glycol 3350 [Miralax 119 gm Btl -] 17 gm PO BID bottle 06/21/19 Sennosides [Senna -] 1 tab PO HS tablet 06/21/19 Aa/Hydrolyzed Collagen, Whey [Lps 15-30 Liquid] 30 ml PO BID 08/31/19 Ascorbic Acid [Vitamin C] 500 mg PO DAILY 08/31/19 Calcium (Oyster Shell) [Os-Luis 500MG -] 500 mg PO DAILY 08/31/19 Miconazole Nitrate [Secura Antifungal] 92 gm TP BID 08/31/19 Multivitamin [Multiple Vitamins] 1 each PO DAILY 08/31/19 Nystatin Powder [Nystop Topical Powder -] 15 gm TP BID 08/31/19 Oxycodone HCl 5 mg PO Q4H PRN 08/31/19 Potassium Chloride 20 meq PO DAILY 08/31/19 Simethicone 80 mg PO BID 08/31/19 Travoprost [Travatan Z] 5 ml OP HS 08/31/19 Zinc Oxide 20% Topical Oint 454 gm TP TID 08/31/19 Docusate Sodium [Colace -] 200 mg PO HS PRN 09/22/19 Ferrous Sulfate 325 mg PO DAILY 09/22/19 Family Medical History Family History: Unable to Obtain Review of Systems - Review of Systems Constitutional: denies: Chills, Fever Eyes: reports: No Symptoms HENT: reports: No Symptoms Neck: reports: No Symptoms Cardiovascular: reports: No Symptoms Respiratory: reports: No Symptoms Gastrointestinal: reports: Abdominal Pain, Diarrhea Genitourinary: denies: Hematuria Breasts: reports: No Symptoms Reported Neurological: reports: Pre-Existing Deficit Pain Intensity: 8 Physical Examination Vital Signs: Vital Signs Temperature 98.1 F 09/22/19 20:52 Pulse Rate 74 09/22/19 20:52 Respiratory Rate 18 09/22/19 20:52 Blood Pressure 115/71 09/22/19 20:52 O2 Sat by Pulse Oximetry (%) 100 09/22/19 20:52 Constitutional: Yes: No Distress, Calm, Thin Eyes: Yes: WNL, Conjunctiva Clear, EOM Intact, PERRL HENT: Yes: WNL, Atraumatic, Normocephalic Neck: Yes: Supple, Trachea Midline, Lymphadenopathy Cardiovascular: Yes: WNL, Regular Rate and Rhythm, S1, S2 Respiratory: Yes: WNL, Regular, CTA Bilaterally Gastrointestinal: Yes: WNL, Normal Bowel Sounds, Soft ...Rectal Exam: Yes: Sphincter Tone Normal Renal/: Yes: Incontinence Breast(s): Yes: WNL Musculoskeletal: Yes: WNL Extremities: Yes: Other (contracted) Edema: No Peripheral Pulses WNL: Yes Integumentary: Yes: Pressure Ulcer (sacral stage IV) Wound/Incision: Yes: Dressing Removed, Draining, Reddened Neurological: Yes: Alert, Oriented, Pre-Existing Deficit ...Motor Strength: LUE (3/5), LLE (2/5), RUE (3/5), RLE (2/5) Psychiatric: Yes: WNL Labs: CBC, BMP 09/22/19 21:35 09/22/19 21:35 Laboratory Results - last 24 hr 09/22/19 09/22/19 09/22/19 21:35 21:35 21:35 WBC 8.0 RBC 3.30 L Hgb 8.9 L Hct 27.8 L MCV 84.2 MCH 26.9 D MCHC 31.9 L RDW 15.7 D Plt Count 377 D MPV 6.4 L Absolute Neuts (auto) 4.7 Neutrophils % 59.4 Lymphocytes % 19.1 Monocytes % 8.7 Eosinophils % 11.9 H Basophils % 0.9 Nucleated RBC % 0 Sodium 141 Potassium 5.0 Chloride 112 H Carbon Dioxide 26 Anion Gap 4 L BUN 41.4 H Creatinine 1.1 Est GFR (CKD-EPI)AfAm 75.71 Est GFR (CKD-EPI)NonAf 65.32 Random Glucose 119 H Lactic Acid Calcium 8.7 Total Bilirubin 0.1 L AST 13 L ALT 13 Alkaline Phosphatase 71 Creatine Kinase Troponin I Total Protein 6.0 L Albumin 1.8 L Total Amylase 51 Lipase 99 Urine Color Urine Appearance Urine pH Ur Specific [place] Urine Protein Urine Glucose (UA) Urine Ketones Urine Blood Urine Nitrite Urine Bilirubin Urine Urobilinogen Ur Leukocyte Esterase Urine WBC (Auto) Urine RBC (Auto) Urine Casts (Auto) U Pathogenic Cast Auto U Epithel Cells (Auto) Urine Bacteria (Auto) Urine Yeast (Auto) 09/22/19 09/22/19 09/22/19 21:35 21:35 21:40 WBC RBC Hgb Hct MCV MCH MCHC RDW Plt Count MPV Absolute Neuts (auto) Neutrophils % Lymphocytes % Monocytes % Eosinophils % Basophils % Nucleated RBC % Sodium Potassium Chloride Carbon Dioxide Anion Gap BUN Creatinine Est GFR (CKD-EPI)AfAm Est GFR (CKD-EPI)NonAf Random Glucose Lactic Acid 1.5 Calcium Total Bilirubin AST ALT Alkaline Phosphatase Creatine Kinase 56 Troponin I < 0.02 Total Protein Albumin Total Amylase Lipase Urine Color [place] Urine Appearance Turbid Urine pH 6.0 Ur Specific [place] 1.014 Urine Protein 3+ H Urine Glucose (UA) Negative Urine Ketones Negative Urine Blood 3+ H Urine Nitrite Negative Urine Bilirubin Negative Urine Urobilinogen 0.2 Ur Leukocyte Esterase 3+ H Urine WBC (Auto) 250 Urine RBC (Auto) 414 Urine Casts (Auto) 23 U Pathogenic Cast Auto None seen U Epithel Cells (Auto) 2.5 Urine Bacteria (Auto) 367.4 Urine Yeast (Auto) Few Intake & Output 09/20/19 09/21/19 09/22/19 09/23/19 23:59 23:59 23:59 23:59 Weight 51.437 kg Imaging - Results Cat Scan: Report Reviewed, Image Reviewed EKG: Image Reviewed Problem List - Problems (1) Proctitis Assessment/Plan: CTAP- moderate gas distention of the right sided colon and moderate amount of diffuse solid stool. No edy bowel obstruction Appreciate GI consult Consider Miralax- defer to GI Code(s): K62.89 - OTHER SPECIFIED DISEASES OF ANUS AND RECTUM (2) Abdominal pain Assessment/Plan: likely secondary to constipation CTAP reviewed- moderate gas distention of the right-sided colon and moderate amount of diffuse solid stool but no edy bowel obstruction. Mild rectal inflammation, possible related to adjacent sacral decubitus ulcr and cellulitis without definite abscess, Possible cystitis can be correlated with urinalysis. Gallstones. probable mild chronic pancreatitis Patient had abd xray at [facility]- progressive colonic ileus No leukocytosis, pt afebrile amylase/lipase-nl Appreciate GI consult Consider Surgical consult if condition worsens Monitor CBC, BMP Monitor vitals Code(s): R10.9 - UNSPECIFIED ABDOMINAL PAIN Qualifiers: Abdominal location: generalized Qualified Code(s): R10.84 - Generalized abdominal pain (3) UTI (urinary tract infection) Assessment/Plan: neurogenic bladder/suprapubic catheter ESBL, Proteus Mirabilis, morganella morgani hx UA- +3 leukocyte esterase, +3 blood, +3 protein, 250 WBC, 414 RBC, 367 bacteria Urine Culture-pending Multiple ABX allergies Will treat for complicated UTI Meropenem Appreciate ID consult Monitor CBC Monitor vitals Code(s): N39.0 - URINARY TRACT INFECTION, SITE NOT SPECIFIED Qualifiers: Hematuria presence: with hematuria (4) Sacral decubitus ulcer, stage IV Assessment/Plan: Wound culture-pending Continue wound care Consider Surgical consult possible surgical debridement Air Mattress Bed Turn Q2h Wound Vac Code(s): L89.154 - PRESSURE ULCER OF SACRAL REGION, STAGE 4 (5) Neurogenic bladder Assessment/Plan: s/p Suprapubic Cath Code(s): N31.9 - NEUROMUSCULAR DYSFUNCTION OF BLADDER, UNSPECIFIED (6) Anemia Assessment/Plan: stable At baseline 7.0- 9.2 Monitor CBC Will transfuse if Hgb < 7.0 Monitor vitals Code(s): D64.9 - ANEMIA, UNSPECIFIED (7) Diabetes Assessment/Plan: stable BGMs Hold ISS until diet resumed Code(s): E11.9 - TYPE 2 DIABETES MELLITUS WITHOUT COMPLICATIONS (8) HTN (hypertension) Assessment/Plan: stable Monitor BP Continue home meds Monitor renal function Code(s): I10 - ESSENTIAL (PRIMARY) HYPERTENSION (9) Functional quadriplegia Assessment/Plan: complete immobility due to Quadriplegia Requires total care Turn Q2h Nicolasa Lift as needed Heel Protectors Fall Precautions Code(s): R53.2 - FUNCTIONAL QUADRIPLEGIA Assessment/Plan This is a 73 y/o man from [facility] with a PMHx of Quadriplegia, Neurogenic Bladder with a suprapublic catheter (recent cystoscopy with extensive papillary lesion at dome of and right lateral wall bladder s/p fulguration of bleeding), HTN, NIDDM, IVC Filter. Admitted for Intractable Abdominal Pain, N/V/D, Complicated UTI for further evaluation of their emergent condition. Plan: See Problem List FEN D51/2NS@42ml/hr Replete lytes prn NPO DVT ppx SCDs TEDs Heparin SQ Dispo: Requires Inpatient Care Visit type - Emergency Visit Emergency Visit: Yes ED Registration Date: 09/22/19 Care time: The patient presented to the Emergency Department on the above date and was hospitalized for further evaluation of their emergent condition. - New Patient This patient is new to me today: Yes Date on this admission: 09/23/19 - Critical Care Critical Care patient: No
[2019-09-23 07:24] VITALS: BMI 19.8
[2019-09-23 09:05] LABS: BASO % 0.4 % (0-2.0); EOS % 10.2 % (0-4.5); HEMATOCRIT 28.6 % (35.4-49); HEMOGLOBIN 9.2 GM/dL (11.7-16.9); LYMPH % 13.8 % (8-40); MCH 26.9 pg (25.7-33.7); MCHC 32.2 g/dl (32.0-35.9); MEAN CELL VOLUME 83.5 fl (80-96); MEAN PLT VOLUME 6.1 fl (7.5-11.1); MONO % 7.9 % (3.8-10.2); NEUT % 67.7 % (42.8-82.8); PLATELET COUNT 377 K/MM3 (134-434); RBC 3.42 M/mm3 (4.00-5.60); RDW 15.3 % (11.9-15.9)
[2019-09-23 09:25] LABS: BLOOD UREA NITROGEN 40.5 mg/dL (7-18); CALCIUM 8.6 mg/dL (8.5-10.1); CREATININE 1.1 mg/dL (0.55-1.3); POTASSIUM 4.8 mmol/L (3.5-5.1)
[2019-09-23] MEDS ORDERED: PT OWN MED DRAWER 7, Y5N ONE (09:44)
--- NOTE | 2019-09-23 09:45 | CON.GI ---
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 He points towards his lower abdomen and pelvis. an AXR as outpatient revealed possible colonic ileus . CT scan in the ER failed to reveal significant colon distention, changes suspicious for intermittent sigmoid volvulus (No current volvulus, with inflammatory changes in the distal sigmoid and rectum) thickening and inflammatory changes of the rectum with fecal retention, sacral ulcer, large right renal cyst, gallstones. He has a history of abdominal surgery (looks like laparotomy scar), however the patient has no idea as to what was performed. This was possibly in 2013. He also believes that he had a recent colonoscopy here within the last year, however I cannot find any record of this) . He had recent TURBT 09/01/19 (urothelial cancer). He complains of chronic loose bowel movements. There is no family history of colorectal cancer or other GI malignancy. 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 ? laparoscopy) - Alcohol/Substance Use Hx Alcohol Use: No History of Substance Use: reports: None - Smoking History Smoking history: Never smoked Have you smoked in the past 12 months: No - Social History Usual Living Arrangement: Half-Way ADL: Support Services Place of : Other ([facility]) History of Recent Travel: No Home Medications - Allergies Allergies/Adverse Reactions: Allergies Allergy/AdvReac Type Severity Reaction Status Date / Time ciprofloxacin Allergy Verified 09/22/19 20:52 piperacillin [From Zosyn] Allergy Verified 09/22/19 20:52 tazobactam [From Zosyn] Allergy Verified 09/22/19 20:52 Penicillins AdvReac Verified 09/22/19 20:52 - Home Medications Home Medications: Ambulatory Orders Gabapentin 100 mg PO PRN PRN 06/06/19 Omeprazole 20 mg PO DAILY 06/06/19 Acetaminophen [Tylenol .Regular Strength -] 650 mg PO Q6H PRN tablet 06/21/19 Heparin - 5,000 unit SQ TID vial 06/21/19 Polyethylene Glycol 3350 [Miralax 119 gm Btl -] 17 gm PO BID bottle 06/21/19 Sennosides [Senna -] 1 tab PO HS tablet 06/21/19 Aa/Hydrolyzed Collagen, Whey [Lps 15-30 Liquid] 30 ml PO BID 08/31/19 Ascorbic Acid [Vitamin C] 500 mg PO DAILY 08/31/19 Calcium (Oyster Shell) [Os-Luis 500MG -] 500 mg PO DAILY 08/31/19 Miconazole Nitrate [Secura Antifungal] 92 gm TP BID 08/31/19 Multivitamin [Multiple Vitamins] 1 each PO DAILY 08/31/19 Nystatin Powder [Nystop Topical Powder -] 15 gm TP BID 08/31/19 Oxycodone HCl 5 mg PO Q4H PRN 08/31/19 Potassium Chloride 20 meq PO DAILY 08/31/19 Simethicone 80 mg PO BID 08/31/19 Travoprost [Travatan Z] 5 ml OP HS 08/31/19 Zinc Oxide 20% Topical Oint 454 gm TP TID 08/31/19 Docusate Sodium [Colace -] 200 mg PO HS PRN 09/22/19 Ferrous Sulfate 325 mg PO DAILY 09/22/19 Family Medical History Other Family History: No family history of colorectal cancer or other GI malignancy Review of Systems - Review of Systems Constitutional: denies: Chills Gastrointestinal: reports: Abdominal Pain, Diarrhea, Nausea, Vomiting. denies: Constipation Physical Exam-GI Vital Signs: Vital Signs Temperature 98.9 F 09/23/19 07:18 Pulse Rate 79 09/23/19 07:18 Respiratory Rate 20 09/23/19 07:32 Blood Pressure 135/53 L 09/23/19 07:18 O2 Sat by Pulse Oximetry (%) 100 09/23/19 07:32 Constitutional: Yes: Calm Eyes: No: Sclera Icterus Cardiovascular: Yes: Regular Rate and Rhythm. No: Murmur Respiratory: Yes: CTA Bilaterally Gastrointestinal Inspection: Yes: Scars (Long vertical midline surgical scar). No: Distention ...Auscultate: Yes: Normoactive Bowel Sounds ...Palpate: Yes: Soft, Tenderness (Suprapubic tenderness to palpation) ...Percussion: No: Tympanitic ...Rectal Exam: Yes: Other (No external lesions, no masses palpated, soft light brown stool in rectal vault) Edema: No (No LE edema) Neurological: Yes: Alert Labs: CBC, BMP 09/23/19 08:10 09/23/19 08:10 Hepatic Panel Total Bilirubin 0.1 mg/dL (0.2-1) L 09/22/19 21:35 AST 13 U/L (15-37) L 09/22/19 21:35 ALT 13 U/L (13-61) 09/22/19 21:35 Alkaline Phosphatase 71 U/L (45-117) 09/22/19 21:35 Albumin 1.8 g/dl (3.4-5.0) L 09/22/19 21:35 Problem List - Problems (1) Abdominal pain Assessment/Plan: Mainly suprapubic tenderness to palpation: Advise urology evaluation CT findings of ? intermittent sigmoid volvulus. No volvulus currently and no colon distention on current CT scan that had been seen on outpatient AXR. An intermittent volvulus is a possibility Advise surgery input Discussed flex sig with patient to evaluate rectal inflammatory changes. ? related to sacratl decubitus. ? Stercoral ulcer, ? if the distal sigmoid inflammatory changes relfecting torsoin point of internittent volvulus. Advance to clears, then as tolerated Code(s): R10.9 - UNSPECIFIED ABDOMINAL PAIN
[2019-09-23] MEDS ORDERED: VANCOMYCIN 750 MG in DEXTROSE 5%-WATER - 150 ML IVPB SCH (10:00)
[2019-09-23] MEDS ORDERED: VANCOMYCIN 750 MG in DEXTROSE 5%-WATER - 250 ML IVPB SCH (10:00)
--- NOTE | 2019-09-23 12:05 | PN ---
Progress Note, Physician Chief Complaint: patent seen and examined complainig of abdominal and suprapubic pain to get EGD on thursday - Current Medication List Current Medications: Active Medications Vancomycin HCl 750 mg/ (Dextrose) 150 mls @ 150 mls/hr IVPB DAILY@1000 LENORA; Protocol Vancomycin HCl 750 mg/ (Dextrose) 250 mls @ 250 mls/hr IVPB DAILY LENORA Stop: 09/24/19 09:59 Last Admin: 09/23/19 09:49 Dose: 250 mls/hr - Objective Vital Signs: Vital Signs Temperature 98.3 F 09/23/19 09:00 Pulse Rate 90 09/23/19 09:00 Respiratory Rate 20 09/23/19 09:00 Blood Pressure 121/55 L 09/23/19 09:00 O2 Sat by Pulse Oximetry (%) 98 09/23/19 09:00 Constitutional: Yes: Calm, Thin Cardiovascular: Yes: Regular Rate and Rhythm, S1, S2 Respiratory: Yes: CTA Bilaterally Gastrointestinal: Yes: Tenderness, Epigastrium Genitourinary: Yes: Other (suprapubic tenderness) Edema: No Neurological: Yes: Alert Labs: CBC, BMP 09/23/19 08:10 09/23/19 08:10 Problem List - Problems (1) Abdominal pain Assessment/Plan: gi consult appreciated to get EGD on thursday start clear liquid diet Code(s): R10.9 - UNSPECIFIED ABDOMINAL PAIN (2) Stage 4 decubitus ulcer Assessment/Plan: dr clemons team ID eval wound care team frequent turn and position q2 dvt ppx Code(s): L89.94 - PRESSURE ULCER OF UNSPECIFIED SITE, STAGE 4 (3) Functional quadriplegia Assessment/Plan: dv tppx frequent turn and position Code(s): R53.2 - FUNCTIONAL QUADRIPLEGIA (4) Suprapubic pain Assessment/Plan: urology eval Code(s): R10.2 - PELVIC AND PERINEAL PAIN
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
--- NOTE | 2019-09-23 13:16 | EKG ---
Test Reason : Blood Pressure : / mmHG Vent. Rate : 061 BPM Atrial Rate : 061 BPM P-R Int : 140 ms QRS Dur : 092 ms QT Int : 384 ms P-R-T Axes : 081 071 092 degrees QTc Int : 386 ms NORMAL SINUS RHYTHM T WAVE ABNORMALITY, CONSIDER LATERAL ISCHEMIA ABNORMAL ECG Confirmed by KJ RAMSEY MD ([id number]) on 09/23/2019 1:15:56 PM Referred By: Confirmed By:KJ RAMSEY MD
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
--- NOTE | 2019-09-23 15:06 | PN ---
Progress Note (short form) - Note Progress Note: ID consult dictated 73 yo man with quadraplegia admitted [place] the [place] with abdominal distention, he has a history of chronic abdominal pain he was hospitalized in May of 2019 with pelvic abscess and osteo with a large decub, he had a spt placed as well he was treated with 6 weeks of iv vanco and meropenem [place] the [place], still with vac - wund is clean he is s/p TURBT and change of SPT on 08/31 - he has history of bladder cancer as well no fevers no leukocytosis no signs of infection was started on vancomycin by admitting provider last night will d/c f/u per GI for chronic abdominal pain f/u surgery f/u urology Problem List - Problems (1) Abdominal distension Code(s): R14.0 - ABDOMINAL DISTENSION (GASEOUS) (2) Abdominal pain Code(s): R10.9 - UNSPECIFIED ABDOMINAL PAIN Qualifiers: Abdominal location: generalized Qualified Code(s): R10.84 - Generalized abdominal pain (3) Stage 4 decubitus ulcer Code(s): L89.94 - PRESSURE ULCER OF UNSPECIFIED SITE, STAGE 4 (4) Functional quadriplegia Code(s): R53.2 - FUNCTIONAL QUADRIPLEGIA
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
[2019-09-23] MEDS: HEPARIN NA (PORCINE) 5,000 UNITS/ML 1ML VIAL SQ SCH (21:16)
--- NOTE | 2019-09-23 22:16 | CONSULT ---
Consult Consult Specialty:: UROLOGY Reason for Consultation:: supra pubic pain - History of Present Illness Chief Complaint: Patient is a 73 year old male with PMH quadriplegia, neurogenic bladder w/suprapubic catheter, HTN, TIIDM, IVC filter. c/o Supra pubic pain and leaking around the catheter. no hematuria. O/E soft lax abd. SPC replaced with 26 F soriano catheter. 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 ? laparoscopy) - Alcohol/Substance Use Hx Alcohol Use: No History of Substance Use: reports: None - Smoking History Smoking history: Never smoked Have you smoked in the past 12 months: No - Social History Usual Living Arrangement: Assisted ADL: Support Services History of Recent Travel: No Home Medications - Allergies Allergies/Adverse Reactions: Allergies Allergy/AdvReac Type Severity Reaction Status Date / Time ciprofloxacin Allergy Verified 09/22/19 20:52 piperacillin [From Zosyn] Allergy Verified 09/22/19 20:52 tazobactam [From Zosyn] Allergy Verified 09/22/19 20:52 Penicillins AdvReac Verified 09/22/19 20:52 - Home Medications Home Medications: Ambulatory Orders Gabapentin 100 mg PO PRN PRN 06/06/19 Omeprazole 20 mg PO DAILY 06/06/19 Acetaminophen [Tylenol .Regular Strength -] 650 mg PO Q6H PRN tablet 06/21/19 Heparin - 5,000 unit SQ TID vial 06/21/19 Polyethylene Glycol 3350 [Miralax 119 gm Btl -] 17 gm PO BID bottle 06/21/19 Sennosides [Senna -] 1 tab PO HS tablet 06/21/19 Aa/Hydrolyzed Collagen, Whey [Lps 15-30 Liquid] 30 ml PO BID 08/31/19 Ascorbic Acid [Vitamin C] 500 mg PO DAILY 08/31/19 Calcium (Oyster Shell) [Os-Luis 500MG -] 500 mg PO DAILY 08/31/19 Miconazole Nitrate [Secura Antifungal] 92 gm TP BID 08/31/19 Multivitamin [Multiple Vitamins] 1 each PO DAILY 08/31/19 Nystatin Powder [Nystop Topical Powder -] 15 gm TP BID 08/31/19 Oxycodone HCl 5 mg PO Q4H PRN 08/31/19 Potassium Chloride 20 meq PO DAILY 08/31/19 Simethicone 80 mg PO BID 08/31/19 Travoprost [Travatan Z] 5 ml OP HS 08/31/19 Zinc Oxide 20% Topical Oint 454 gm TP TID 08/31/19 Docusate Sodium [Colace -] 200 mg PO HS PRN 09/22/19 Ferrous Sulfate 325 mg PO DAILY 09/22/19 Physical Exam Vital Signs: Vital Signs Temperature 97.5 F L 09/23/19 14:06 Pulse Rate 70 09/23/19 14:06 Respiratory Rate 20 09/23/19 14:06 Blood Pressure 113/57 L 09/23/19 14:06 O2 Sat by Pulse Oximetry (%) 98 09/23/19 09:00 Labs: CBC, BMP 09/23/19 08:10 09/23/19 08:10 Assessment/Plan Neurogenic Bladder Bladder Tumor Plan: change SPC q 4 weeks.
[2019-09-24 08:02] LABS: BASO % 0.9 % (0-2.0); HEMATOCRIT 28.3 % (35.4-49); HEMOGLOBIN 9.1 GM/dL (11.7-16.9); LYMPH % 21.7 % (8-40); MCH 26.8 pg (25.7-33.7); MEAN CELL VOLUME 83.6 fl (80-96); MEAN PLT VOLUME 6.2 fl (7.5-11.1); MONO % 9.2 % (3.8-10.2); NEUT % 58.2 % (42.8-82.8); PLATELET COUNT 408 K/MM3 (134-434); RBC 3.38 M/mm3 (4.00-5.60); RDW 15.7 % (11.9-15.9); WHITE BLOOD COUNT 6.6 K/mm3 (4.0-10.0)
[2019-09-24 08:19] LABS: ALBUMIN 1.7 g/dl (3.4-5.0); BILIRUBIN,TOTAL 0.2 mg/dL (0.2-1); BLOOD UREA NITROGEN 32.5 mg/dL (7-18); CALCIUM 8.6 mg/dL (8.5-10.1); CREATININE 1.1 mg/dL (0.55-1.3); POTASSIUM 4.1 mmol/L (3.5-5.1); TOT PROT 5.9 g/dl (6.4-8.2)
--- NOTE | 2019-09-24 08:40 | PN ---
Progress Note (short form) - Note Progress Note: On exam now the abdomen is minimally distended. Bowel sounds are hypoactive, the abdomen is soft and nontender without rebound or palpable masses. As an outpatient he was on 3 constipating medications: gabapentin oxycodone ferrous sulfate Oxycode and gabapentin were not renewed in hospital. I discontinued ferrous sulfate now as well. I do not know what the patient looked like on admission. Based on today's exam I would not suspect a volvulus. Will obtain a flat plate of the abdomen; if the distention seen on the CT is improved, suggest advancing diet.
[2019-09-24] MEDS ORDERED: FERROUS SO4 325 MG TABLET (FP) PO SCH (10:00)
[2019-09-24] MEDS: HEPARIN NA (PORCINE) 5,000 UNITS/ML 1ML VIAL SQ SCH ×2 (10:05→21:34)
[2019-09-24] MEDS: PANTOPRAZOLE SODIUM 40 MG VIAL IVPUSH SCH (10:05)
[2019-09-24] MEDS: MULTIVITAMINS (DAILY MVI) TABLET (FP) PO SCH (10:06)
[2019-09-24] MEDS: ASCORBIC ACID 500 MG TABLET (FP) PO SCH (10:06)
--- NOTE | 2019-09-24 13:09 | PN ---
Progress Note, Physician - Current Medication List Current Medications: Active Medications Ascorbic Acid (Vitamin C -) 500 mg PO DAILY [facility] Last Admin: 09/24/19 10:06 Dose: 500 mg Heparin Sodium (Porcine) (Heparin -) 5,000 unit SQ BID [facility] Last Admin: 09/24/19 10:05 Dose: 5,000 unit Multivitamins/Minerals/Vitamin C (Tab-A-Vit -) 1 tab PO DAILY [facility] Last Admin: 09/24/19 10:06 Dose: 1 tab Pantoprazole Sodium (Protonix Iv) 40 mg IVPUSH DAILY [facility] Last Admin: 09/24/19 10:05 Dose: 40 mg - Objective Vital Signs: Vital Signs Temperature 97.8 F 09/24/19 07:46 Pulse Rate 81 09/24/19 07:46 Respiratory Rate 16 09/24/19 07:46 Blood Pressure 138/55 L 09/24/19 07:46 O2 Sat by Pulse Oximetry (%) 98 09/24/19 09:00 Cardiovascular: Yes: Regular Rate and Rhythm Respiratory: Yes: Regular, CTA Bilaterally Gastrointestinal: Yes: Normal Bowel Sounds, Soft, Distention Labs: CBC, BMP 09/24/19 07:05 09/24/19 06:00 Problem List - Problems (1) Abdominal distension Assessment/Plan: gi consult appreciated d/w dr dai--maybe chronic distention-pt comfotable xray on clear liquid diet Code(s): R14.0 - ABDOMINAL DISTENSION (GASEOUS) (2) Functional quadriplegia Assessment/Plan: dvt ppx frequent turn and position Code(s): R53.2 - FUNCTIONAL QUADRIPLEGIA (3) Stage 4 decubitus ulcer Assessment/Plan: dr clemons team ID eval wound care team frequent turn and position q2 dvt ppx no abx Code(s): L89.94 - PRESSURE ULCER OF UNSPECIFIED SITE, STAGE 4 (4) HTN (hypertension) Code(s): I10 - ESSENTIAL (PRIMARY) HYPERTENSION (5) Suprapubic catheter Assessment/Plan: uro noted Code(s): Z93.59 - OTHER CYSTOSTOMY STATUS
[2019-09-25 07:58] LABS: BASO % 0.6 % (0-2.0); EOS % 12.4 % (0-4.5); HEMATOCRIT 28.2 % (35.4-49); LYMPH % 18.5 % (8-40); MCH 26.7 pg (25.7-33.7); MCHC 31.8 g/dl (32.0-35.9); MEAN CELL VOLUME 83.7 fl (80-96); MONO % 8.7 % (3.8-10.2); NEUT % 59.8 % (42.8-82.8); PLATELET COUNT 437 K/MM3 (134-434); RBC 3.37 M/mm3 (4.00-5.60); RDW 15.4 % (11.9-15.9); WHITE BLOOD COUNT 7.6 K/mm3 (4.0-10.0)
[2019-09-25 08:20] LABS: ALBUMIN 1.7 g/dl (3.4-5.0); BILIRUBIN,TOTAL 0.2 mg/dL (0.2-1); BLOOD UREA NITROGEN 29.3 mg/dL (7-18); CALCIUM 8.5 mg/dL (8.5-10.1); CREATININE 1.2 mg/dL (0.55-1.3); POTASSIUM 3.6 mmol/L (3.5-5.1); TOT PROT 5.7 g/dl (6.4-8.2)
[2019-09-25] MEDS: MULTIVITAMINS (DAILY MVI) TABLET (FP) PO SCH (09:12)
[2019-09-25] MEDS: HEPARIN NA (PORCINE) 5,000 UNITS/ML 1ML VIAL SQ SCH ×2 (09:12→22:03)
[2019-09-25] MEDS: ASCORBIC ACID 500 MG TABLET (FP) PO SCH (09:12)
[2019-09-25] MEDS: PANTOPRAZOLE SODIUM 40 MG VIAL IVPUSH SCH (09:12)
--- NOTE | 2019-09-25 10:03 | PN ---
Progress Note (short form) - Note Progress Note: Pt markedly distended this a.m. but not in pain. 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 Rectal tube placed at bedside with evacuation of air. No immediate complication. Will leave rectal tube in for now. I spoke by telephone with patient's daughter and explained that he will likely need a sigmoid resection, as the volvulus is going to recur. Suggest surgical consult.
--- NOTE | 2019-09-25 11:17 | PN ---
Progress Note, Physician - Current Medication List Current Medications: Active Medications Heparin Sodium (Porcine) (Heparin -) 5,000 unit SQ BID [facility] Last Admin: 09/25/19 09:12 Dose: 5,000 unit Multivitamins/Minerals/Vitamin C (Tab-A-Vit -) 1 tab PO DAILY [facility] Last Admin: 09/25/19 09:12 Dose: 1 tab Pantoprazole Sodium (Protonix Iv) 40 mg IVPUSH DAILY [facility] Last Admin: 09/25/19 09:12 Dose: 40 mg - Objective Vital Signs: Vital Signs Temperature 98.2 F 09/25/19 08:08 Pulse Rate 88 09/25/19 08:08 Respiratory Rate 16 09/25/19 08:08 Blood Pressure 128/70 09/25/19 08:08 O2 Sat by Pulse Oximetry (%) 98 09/24/19 21:00 Cardiovascular: Yes: S1, S2 Respiratory: Yes: Regular, CTA Bilaterally Gastrointestinal: Yes: Distention Labs: CBC, BMP 09/25/19 07:20 09/25/19 07:20 Problem List - Problems (1) Abdominal distension Assessment/Plan: gi consult appreciated d/w dr dai--Belinda--Rectal tube--Surgical F/U xray on clear liquid diet Code(s): R14.0 - ABDOMINAL DISTENSION (GASEOUS) (2) Functional quadriplegia Assessment/Plan: dvt ppx frequent turn and position Code(s): R53.2 - FUNCTIONAL QUADRIPLEGIA (3) Stage 4 decubitus ulcer Assessment/Plan: dr clemons team ID eval wound care team frequent turn and position q2 dvt ppx no abx Code(s): L89.94 - PRESSURE ULCER OF UNSPECIFIED SITE, STAGE 4 (4) HTN (hypertension) Code(s): I10 - ESSENTIAL (PRIMARY) HYPERTENSION (5) Suprapubic catheter Assessment/Plan: uro noted Code(s): Z93.59 - OTHER CYSTOSTOMY STATUS
[2019-09-26] MEDS: HEPARIN NA (PORCINE) 5,000 UNITS/ML 1ML VIAL SQ SCH ×2 (09:51→22:02)
[2019-09-26] MEDS: MULTIVITAMINS (DAILY MVI) TABLET (FP) PO SCH (09:51)
[2019-09-26] MEDS: PANTOPRAZOLE SODIUM 40 MG VIAL IVPUSH SCH (09:51)
[2019-09-26] MEDS ORDERED: IRON SUCROSE INJECTION 200 MG in SODIUM CHLORIDE 90 ML IVPB ONE (11:18)
--- NOTE | 2019-09-26 11:24 | PN ---
Progress Note, Physician Chief Complaint: patient seen by GI rectal tube placed currently NPO awaiting surgical evaluation for volvulus - Current Medication List Current Medications: Active Medications Heparin Sodium (Porcine) (Heparin -) 5,000 unit SQ BID [facility] Last Admin: 09/26/19 09:51 Dose: 5,000 unit Dextrose/Sodium Chloride (D5-1/2ns -) 1,000 mls @ 75 mls/hr IV ASDIR [facility] Iron Sucrose 200 mg/ Sodium (Chloride) 100 mls @ 100 mls/hr IVPB ONCE ONE Stop: 09/26/19 12:17 Multivitamins/Minerals/Vitamin C (Tab-A-Vit -) 1 tab PO DAILY [facility] Last Admin: 09/26/19 09:51 Dose: 1 tab Pantoprazole Sodium (Protonix Iv) 40 mg IVPUSH DAILY [facility] Last Admin: 09/26/19 09:51 Dose: 40 mg - Objective Vital Signs: Vital Signs Temperature 98.2 F 09/26/19 09:45 Pulse Rate 80 09/26/19 09:45 Respiratory Rate 17 09/26/19 09:45 Blood Pressure 124/64 09/26/19 09:45 O2 Sat by Pulse Oximetry (%) 98 09/25/19 21:00 Constitutional: Yes: Calm Cardiovascular: Yes: Regular Rate and Rhythm, S1, S2 Respiratory: Yes: Diminished Gastrointestinal: Yes: Tenderness Extremities: Yes: Other (flexed) Edema: No Labs: CBC, BMP 09/25/19 07:20 09/25/19 07:20 Problem List - Problems (1) Abdominal pain Assessment/Plan: gi consult appreciated rectal tube placed NPO for now will start ivf awaiting surgical evaluation Code(s): R10.9 - UNSPECIFIED ABDOMINAL PAIN Qualifiers: Abdominal location: generalized Qualified Code(s): R10.84 - Generalized abdominal pain (2) Stage 4 decubitus ulcer Assessment/Plan: wound care team consult noted air mattress frequent turn and position q2 dvt ppx Code(s): L89.94 - PRESSURE ULCER OF UNSPECIFIED SITE, STAGE 4 (3) Functional quadriplegia Assessment/Plan: dv tppx frequent turn and position Code(s): R53.2 - FUNCTIONAL QUADRIPLEGIA (4) Suprapubic pain Assessment/Plan: urology eval noted SPC change every 4 weeks- neurogenic bladder Code(s): R10.2 - PELVIC AND PERINEAL PAIN (5) Anemia Assessment/Plan: venofer Code(s): D64.9 - ANEMIA, UNSPECIFIED
--- NOTE | 2019-09-26 12:57 | PN ---
Progress Note (short form) - Note Progress Note: GI f/u Pt seen and examined Reports abdominal pain but belly is smaller +flatus Vital Signs Temp 98.2 F 09/26/19 09:45 Pulse 80 09/26/19 09:45 Resp 17 09/26/19 09:45 BP 124/64 09/26/19 09:45 Pulse Ox 100 09/26/19 09:45 NAD abd soft, ND, diffuse mild ttp without guarding CBC, BMP 09/25/19 07:20 09/25/19 07:20 s/p decompression of sigmoid volvulus Would defer flex sig at this time Would get abdominal flat plate to assess decompression Surgical consult
--- NOTE | 2019-09-26 15:27 | PN ---
Progress Note (short form) - Note Progress Note: Attending Surgeon Patient well known to me and seen in f/u for intermittent ssigmoid volvulus. Is NPO but I understand no flex sig will be done today; passing flatus. abdo-softly distended; no ttp; no evidence of an acute surgical abdomen AXR toady-I do not appreciate a volvulus IMP: h/o sigmoid volvulus PLAN: I had an xtensive d/w the patients daughter yesterday about sigmoid colon resection and colostomy; she is his HCP;. this would tx. the volvulus and prevent further soiling of the perianal and perineal areas and make his care easier; in particular his sacral decubitus; I will reach out to her again and see if she has discussed this w/her father and what the next step will be. Chapo Quintero MD FACS
--- NOTE | 2019-09-26 17:49 | PN ---
Progress Note (short form) - Note Progress Note: Attending Surgeon Case d/w his daughter Keyla Reardon who states he father is unwilling to undergo surgery and have a colostomy; I do not believe he can be safely prepped to have a sigmoid resection w/o the possibility of a permanent colostomy for reasons I have previously indicated. Chapo Quintero MD FACS
[2019-09-26] MEDS: DEXTROSE 5%-0.45% SALINE 1,000 ML IV SCH (17:50)
[2019-09-27] MEDS: DEXTROSE 5%-0.45% SALINE 1,000 ML IV SCH ×2 (07:11→21:35)
[2019-09-27] MEDS: HEPARIN NA (PORCINE) 5,000 UNITS/ML 1ML VIAL SQ SCH ×2 (10:48→21:36)
[2019-09-27] MEDS: PANTOPRAZOLE SODIUM 40 MG VIAL IVPUSH SCH (10:48)
[2019-09-27] MEDS: MULTIVITAMINS (DAILY MVI) TABLET (FP) PO SCH (11:01)
--- NOTE | 2019-09-27 11:16 | PN ---
Progress Note, Physician Chief Complaint: Sigmoid volvolus History of Present Illness: NAD Still c/o abdominal pain, that is chronic 2/2 to sigmoid volvulous Seen by Surgery and GI Pt refused surgical intervention that requires - Current Medication List Current Medications: Active Medications Heparin Sodium (Porcine) (Heparin -) 5,000 unit SQ BID [facility] Last Admin: 09/27/19 10:48 Dose: 5,000 unit Dextrose/Sodium Chloride (D5-1/2ns -) 1,000 mls @ 75 mls/hr IV ASDIR [facility] Last Admin: 09/27/19 07:11 Dose: 75 mls/hr Iron Sucrose 300 mg/ Sodium (Chloride) 250 mls @ 250 mls/hr IVPB ONCE ONE Stop: 09/27/19 12:59 Multivitamins/Minerals/Vitamin C (Tab-A-Vit -) 1 tab PO DAILY [facility] Last Admin: 09/27/19 11:01 Dose: Not Given Pantoprazole Sodium (Protonix Iv) 40 mg IVPUSH DAILY [facility] Last Admin: 09/27/19 10:48 Dose: 40 mg - Objective Vital Signs: Vital Signs Temperature 97.7 F 09/27/19 06:00 Pulse Rate 88 09/27/19 06:00 Respiratory Rate 18 09/27/19 06:00 Blood Pressure 124/64 09/27/19 06:00 O2 Sat by Pulse Oximetry (%) 99 09/27/19 09:00 Constitutional: Yes: No Distress, Calm, Cachectic Cardiovascular: Yes: Regular Rate and Rhythm Respiratory: Yes: Regular Gastrointestinal: Yes: Hypoactive Bowel Sounds, Tenderness (diffuse) Genitourinary: Yes: Other (supra-pubic cath) Musculoskeletal: Yes: Muscle Weakness Edema: No Peripheral Pulses WNL: Yes Neurological: Yes: Alert, Oriented Psychiatric: Yes: Alert, Oriented Labs: CBC, BMP 09/25/19 07:20 09/25/19 07:20 Assessment/Plan (1) Abdominal pain Assessment/Plan: -GI consult -Rectal tube placed -NPO--->will advance to clear liquids, given no sx is to be done -IVF -Surgical consult appreciated -Pt doesn't want any surgical intervention at this time -Daughter/pt understands that his volvulus will reoccur -May consider colorectal surgery consult at a tertiary care center. Code(s): R10.9 - UNSPECIFIED ABDOMINAL PAIN Qualifiers: Abdominal location: generalized Qualified Code(s): R10.84 - Generalized abdominal pain (2) Stage 4 decubitus ulcer Assessment/Plan: -Wound care team consult noted -Air mattress -Offloading Code(s): L89.94 - PRESSURE ULCER OF UNSPECIFIED SITE, STAGE 4 (3) Functional quadriplegia Assessment/Plan: -DVT ppx -offloading -T&P Q2H Code(s): R53.2 - FUNCTIONAL QUADRIPLEGIA (4) Suprapubic pain Assessment/Plan: -Suprapubic catheter change every 4 weeks- neurogenic bladder Code(s): R10.2 - PELVIC AND PERINEAL PAIN (5) Anemia Assessment/Plan: -received venofer x 1 yesterday -Will give another venofer today -monitor trend Code(s): D64.9 - ANEMIA, UNSPECIFIED Spoke to daughter today, who is agreeable to whatever her father wants. Palliative consult placed to discuss further.
[2019-09-27] MEDS ORDERED: IRON SUCROSE INJECTION 300 MG in SODIUM CHLORIDE 235 ML IVPB ONE (12:00)
--- NOTE | 2019-09-27 20:06 | PN.GI ---
GI Progress Note Subjective: No acute events refusing surgery present at bedside No abdominal pain - Objective Vital Signs: Vital Signs Temperature 97.8 F 09/27/19 12:00 Pulse Rate 72 09/27/19 12:00 Respiratory Rate 16 09/27/19 12:00 Blood Pressure 137/60 09/27/19 12:00 O2 Sat by Pulse Oximetry (%) 99 09/27/19 09:00 Constitutional: Calm Eyes: No: Sclera Icterus Respiratory: Yes: Diminished (at bases bilaterally) ...Auscultate: Yes: Normoactive Bowel Sounds ...Palpate: Yes: Soft. No: Hepatomegaly ...Percussion: No: Tympanitic Edema: No (No LE edema) Neurological: Yes: Alert Labs: CBC, BMP 09/25/19 07:20 09/25/19 07:20 Problem List - Problems (1) Sigmoid volvulus Assessment/Plan: Had discussion with patient and his . initially refusing surgical intervention. Now willing to think about this option. Advised ARACELI Peres regarding this. Rectal tube in place Code(s): K56.2 - VOLVULUS
[2019-09-28] MEDS: HEPARIN NA (PORCINE) 5,000 UNITS/ML 1ML VIAL SQ SCH ×2 (09:29→21:46)
[2019-09-28] MEDS: PANTOPRAZOLE SODIUM 40 MG VIAL IVPUSH SCH (09:29)
[2019-09-28] MEDS: MULTIVITAMINS (DAILY MVI) TABLET (FP) PO SCH (09:30)
--- NOTE | 2019-09-28 10:24 | PN ---
Progress Note, Physician Chief Complaint: Sigmoid volvolus History of Present Illness: NAD Still c/o abdominal pain, that is chronic 2/2 to sigmoid volvulous Seen by Surgery and GI Pt refused surgical intervention that requires colostomy bag Discussion between GI, and pt--> thinking about surgery - Current Medication List Current Medications: Active Medications Heparin Sodium (Porcine) (Heparin -) 5,000 unit SQ BID [facility] Last Admin: 09/28/19 09:29 Dose: 5,000 unit Dextrose/Sodium Chloride (D5-1/2ns -) 1,000 mls @ 75 mls/hr IV ASDIR [facility] Last Admin: 09/27/19 21:35 Dose: 75 mls/hr Multivitamins/Minerals/Vitamin C (Tab-A-Vit -) 1 tab PO DAILY [facility] Last Admin: 09/28/19 09:30 Dose: 1 tab Pantoprazole Sodium (Protonix Iv) 40 mg IVPUSH DAILY [facility] Last Admin: 09/28/19 09:29 Dose: 40 mg - Objective Vital Signs: Vital Signs Temperature 97.9 F 09/28/19 09:00 Pulse Rate 75 09/28/19 09:00 Respiratory Rate 20 09/28/19 09:00 Blood Pressure 114/57 L 09/28/19 09:00 O2 Sat by Pulse Oximetry (%) 98 09/27/19 21:00 Constitutional: Yes: No Distress, Calm, Cachectic Cardiovascular: Yes: Regular Rate and Rhythm Respiratory: Yes: Regular Gastrointestinal: Yes: Tenderness (diffuse) Musculoskeletal: Yes: Muscle Weakness Extremities: Yes: WNL Edema: No Peripheral Pulses WNL: Yes Neurological: Yes: Alert, Oriented Psychiatric: Yes: Alert, Oriented Labs: CBC, BMP 09/25/19 07:20 09/25/19 07:20 Assessment/Plan (1) Abdominal pain Assessment/Plan: -GI consult -Rectal tube placed Clear liquids for now -IVF -Surgical consult appreciated -Pt is unsure about surgical intervention at this time. Difficulty communicating with pt directly due to language barrier. 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 Code(s): R10.9 - UNSPECIFIED ABDOMINAL PAIN Qualifiers: Abdominal location: generalized Qualified Code(s): R10.84 - Generalized abdominal pain (2) Stage 4 decubitus ulcer Assessment/Plan: -Wound care team consult noted -Air mattress -Offloading Code(s): L89.94 - PRESSURE ULCER OF UNSPECIFIED SITE, STAGE 4 (3) Functional quadriplegia Assessment/Plan: -DVT ppx -offloading -T&P Q2H Code(s): R53.2 - FUNCTIONAL QUADRIPLEGIA (4) Suprapubic pain Assessment/Plan: -Suprapubic catheter change every 4 weeks- neurogenic bladder Code(s): R10.2 - PELVIC AND PERINEAL PAIN (5) Anemia Assessment/Plan: -received venofer x 2 this admission -monitor trend Code(s): D64.9 - ANEMIA, UNSPECIFIED Spoke to daughter today, who is agreeable to whatever her father wants. Palliative consult placed to discuss further.
[2019-09-28] MEDS: DEXTROSE 5%-0.45% SALINE 1,000 ML IV SCH (12:04)
--- NOTE | 2019-09-28 13:39 | PN ---
Progress Note (short form) - Note Progress Note: Attending Surgeon Seen in f/u; had a discussion w/him in [place]ian and he is now amenable to surgery ; sigmoid colectomy and colostomy which he understands will be permanent; I will discuss this w/his daughter again who is his HCP. Chapo Quintero MD FACS
--- NOTE | 2019-09-28 13:51 | PN ---
Progress Note (short form) - Note Progress Note: Pt seen/examined at bedside, reports abdominal pain has improved, tolerating clear liquid diet. Rectal tube in place with small amount of liquid brown stool. On examination: Pt appears comfortable Abd soft, mildly tender on palpation in lower abdomen, nondistended Rectal tube in place Labs reviewed. Abd xray (09/26): dilated sigmoid with decompression, improved from prior Assessment/plan: 73yo male with abdominal pain with CT imaging suggestive of possible intermittent sigmoid volvulus s/p rectal tube with decompression. -Per surgery, pt now amenable to surgical intervention pending further discussion with pts daughter -Continue to monitor/replete electrolytes -Clear liquid diet as tolerated for now -Avoid narcotics -Further recommendations per surgery
--- NOTE | 2019-09-29 08:25 | SPA.PREOP ---
- PRE-OP NOTE Dx: intermittent, recurrent volvulus Planned Procedure: sigmoid colectomy with end colostomy Surgeon: Last Vital Signs Temp Pulse Resp BP Pulse Ox 98.0 F 81 18 101/52 L 98 09/29/19 06:00 09/29/19 06:00 09/29/19 06:00 09/29/19 06:00 09/27/19 21:00 Lab Results WBC 7.6 K/mm3 (4.0-10.0) 09/25/19 07:20 RBC 3.37 M/mm3 (4.00-5.60) L 09/25/19 07:20 Hgb 9.0 GM/dL (11.7-16.9) L 09/25/19 07:20 Hct 28.2 % (35.4-49) L 09/25/19 07:20 MCV 83.7 fl (80-96) 09/25/19 07:20 MCHC 31.8 g/dl (32.0-35.9) L 09/25/19 07:20 RDW 15.4 % (11.9-15.9) 09/25/19 07:20 Plt Count 437 K/MM3 (134-434) H 09/25/19 07:20 Sodium 142 mmol/L (136-145) 09/25/19 07:20 Potassium 3.6 mmol/L (3.5-5.1) 09/25/19 07:20 Chloride 112 mmol/L (98-107) H 09/25/19 07:20 Carbon Dioxide 20 mmol/L (21-32) L 09/25/19 07:20 Anion Gap 10 MMOL/L (8-16) 09/25/19 07:20 BUN 29.3 mg/dL (7-18) H 09/25/19 07:20 Creatinine 1.2 mg/dL (0.55-1.3) 09/25/19 07:20 Random Glucose 89 mg/dL (74-106) 09/25/19 07:20 Calcium 8.5 mg/dL (8.5-10.1) 09/25/19 07:20 - ASSESSMENT/PLAN 1. Make NPO after midnight except po meds 2. GI/DVT PPX 3. Medical optimization / clearance 4. Consent to be obtained by surgeon after risks, benefits and alternatives discussed with patient and or Health Care Proxy. 5. Begin golytley today at 12. 6. Check caogs and T&S
[2019-09-29 08:35] LABS: BASO % 0.9 % (0-2.0); HEMOGLOBIN 8.2 GM/dL (11.7-16.9); LYMPH % 21.7 % (8-40); MCHC 32.9 g/dl (32.0-35.9); MEAN CELL VOLUME 82.1 fl (80-96); MONO % 10.5 % (3.8-10.2); NEUT % 54.9 % (42.8-82.8); PLATELET COUNT 414 K/MM3 (134-434); RBC 3.04 M/mm3 (4.00-5.60); RDW 15.3 % (11.9-15.9); WHITE BLOOD COUNT 6.1 K/mm3 (4.0-10.0)
[2019-09-29 08:39] LABS: MEAN PLT VOLUME 5.8 fl (7.5-11.1)
[2019-09-29 09:12] LABS: ALBUMIN 1.5 g/dl (3.4-5.0); BILIRUBIN,TOTAL 0.2 mg/dL (0.2-1); BLOOD UREA NITROGEN 15.9 mg/dL (7-18); CALCIUM 8.1 mg/dL (8.5-10.1); CREATININE 1.1 mg/dL (0.55-1.3); POTASSIUM 4.1 mmol/L (3.5-5.1); TOT PROT 5.1 g/dl (6.4-8.2)
--- NOTE | 2019-09-29 09:21 | PN ---
Progress Note, Physician Chief Complaint: Abdominal Pain Sigmoid Volvulus History of Present Illness: Previous notes and events reviewed awake and alert NAD c/o abdominal pain Rectal tube in place Patient is for surgery 09/30 for Sigmoid Colectomy with end colostomy - Current Medication List Current Medications: Active Medications Heparin Sodium (Porcine) (Heparin -) 5,000 unit SQ BID [facility] Last Admin: 09/28/19 21:46 Dose: 5,000 unit Dextrose/Sodium Chloride (D5-1/2ns -) 1,000 mls @ 75 mls/hr IV ASDIR [facility] Last Admin: 09/28/19 12:04 Dose: 75 mls/hr Multivitamins/Minerals/Vitamin C (Tab-A-Vit -) 1 tab PO DAILY [facility] Last Admin: 09/28/19 09:30 Dose: 1 tab Pantoprazole Sodium (Protonix Iv) 40 mg IVPUSH DAILY [facility] Last Admin: 09/28/19 09:29 Dose: 40 mg Polyethylene Glycol/Electrolytes (Golytely Solution -) 4,000 ml PO ONCE ONE Stop: 09/29/19 12:01 - Objective Vital Signs: Vital Signs Temperature 98.0 F 09/29/19 06:00 Pulse Rate 81 09/29/19 06:00 Respiratory Rate 18 09/29/19 06:00 Blood Pressure 101/52 L 09/29/19 06:00 O2 Sat by Pulse Oximetry (%) 98 09/27/19 21:00 Constitutional: Yes: No Distress, Calm Eyes: Yes: Conjunctiva Clear HENT: Yes: Atraumatic Neck: Yes: Supple Cardiovascular: Yes: Regular Rate and Rhythm Respiratory: Yes: Regular, CTA Bilaterally Gastrointestinal: Yes: Normal Bowel Sounds, Soft, Tenderness (diffuse) Genitourinary: Yes: Rowe Present Extremities: Yes: Other (contracture b/l lower extremity) Edema: No Integumentary: Yes: Pressure Ulcer Neurological: Yes: Alert, Oriented Psychiatric: Yes: Alert, Oriented Labs: CBC, BMP 09/29/19 08:09 09/29/19 08:09 Microbiology 09/23/19 06:00 Wound Gram Stain - Final 09/23/19 06:00 Wound Wound Culture - Final 09/22/19 21:40 Urine - Urine Rowe Urine Culture - Final NO GROWTH OBTAINED Problem List - Problems (1) Abdominal pain Assessment/Plan: -GI and Surgery on board -CTAP shows moderate gasseous distention of a tortuous sigmoid colon, possibility of intermittent volvulus should be considered, inflammatory changes about the distal sigmoid and rectum suspicious for proctitis, suprapubic cystostomy tube with thickened urinary bladder, cystitis cannot be excluded cholelithiasis with no evidence of acute cholecystitis -Serial Abdominal xrays with lastest from 09/26/19 showing some decompression of sigmoid since 09/24/19 -pain control Code(s): R10.9 - UNSPECIFIED ABDOMINAL PAIN Qualifiers: Abdominal location: generalized Qualified Code(s): R10.84 - Generalized abdominal pain (2) Functional quadriplegia Assessment/Plan: -PT -Fall risk precaution Code(s): R53.2 - FUNCTIONAL QUADRIPLEGIA (3) Sigmoid volvulus Assessment/Plan: -GI and Surgery on board -CTAP shows moderate gasseous distention of a tortuous sigmoid colon, possibility of intermittent volvulus should be considered, inflammatory changes about the distal sigmoid and rectum suspicious for proctitis, suprapubic cystostomy tube with thickened urinary bladder, cystitis cannot be excluded cholelithiasis with no evidence of acute cholecystitis -Serial Abdominal xrays with lastest from 09/26/19 showing some decompression of sigmoid since 09/24/19 -pain control -Rectal tube in for decompression -patient is scheduled for sigmoid colectomy with end colostomy 09/30/19, cardiology and pulmonary consult placed for clearance prior to surgery -Golytely started later today Code(s): K56.2 - VOLVULUS (4) Stage 4 decubitus ulcer Assessment/Plan: -Vascular on board -reposition q2h -air mattress -drawsheets and Trendelenburg when repositioning to avoid friction and shear -manage incontinence in timely manner -offloading -pack sacral wound with moist kerlix and apply dressing -no surgical debridement at this time Code(s): L89.94 - PRESSURE ULCER OF UNSPECIFIED SITE, STAGE 4 (5) Abdominal distension Assessment/Plan: -GI and Surgery on board -CTAP shows moderate gasseous distention of a tortuous sigmoid colon, possibility of intermittent volvulus should be considered, inflammatory changes about the distal sigmoid and rectum suspicious for proctitis, suprapubic cystostomy tube with thickened urinary bladder, cystitis cannot be excluded cholelithiasis with no evidence of acute cholecystitis -Serial Abdominal xrays with lastest from 09/26/19 showing some decompression of sigmoid since 09/24/19 -Rectal tube in place Code(s): R14.0 - ABDOMINAL DISTENSION (GASEOUS) (6) Anemia Assessment/Plan: -Hg 8.2 -transfuse for Hg <7.0 to avoid fluid overload -Anemia panel show low Fe and TIBC -MVI Code(s): D64.9 - ANEMIA, UNSPECIFIED (7) HTN (hypertension) Assessment/Plan: -monitor BP -low Na diet Code(s): I10 - ESSENTIAL (PRIMARY) HYPERTENSION (8) Neurogenic bladder Assessment/Plan: -Urology on board -recommend suprapubic catheter change prior to discharge Code(s): N31.9 - NEUROMUSCULAR DYSFUNCTION OF BLADDER, UNSPECIFIED (9) UTI (urinary tract infection) Assessment/Plan: -ID on board -UA shows 3+ leuks, 3+ blood, 3+ -UC neg -no leukocytosis -afebrile -no antibiotic intervention at present, observe off Code(s): N39.0 - URINARY TRACT INFECTION, SITE NOT SPECIFIED Qualifiers: Hematuria presence: with hematuria Assessment/Plan see problem list dvt ppx
[2019-09-29] MEDS: MULTIVITAMINS (DAILY MVI) TABLET (FP) PO SCH (09:22)
[2019-09-29] MEDS: PANTOPRAZOLE SODIUM 40 MG VIAL IVPUSH SCH (09:22)
[2019-09-29] MEDS: HEPARIN NA (PORCINE) 5,000 UNITS/ML 1ML VIAL SQ SCH ×2 (09:22→21:41)
[2019-09-29] MEDS: DEXTROSE 5%-0.45% SALINE 1,000 ML IV SCH ×2 (09:23→11:50)
--- NOTE | 2019-09-29 11:26 | CON.PULM ---
Consult Consult Specialty:: PULMONARY Referred by:: Dr Martinez Reason for Consultation:: preop clearance - History of Present Illness Chief Complaint: abdominal pain History of Present Illness: 73yo male with h/o HTN, DM, neurogenic bladder, quadriplegia who was admitted with abdominal pain. Found to have recurrent, intermittent volvulus. Scheduled for sigmoid colectoy and end colostomy. He denies any pulmonary history, no asthma or COPD. Denies shortness of breath, cough or wheezing. No chest pain or discomfort. No fevers, chills or sweats. He is a never smoker. 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 ? laparoscopy) - Alcohol/Substance Use Hx Alcohol Use: No History of Substance Use: reports: None - Smoking History Smoking history: Smoker current status UNK Have you smoked in the past 12 months: No - Social History Usual Living Arrangement: Intermediate ADL: Support Services History of Recent Travel: No Home Medications - Allergies Allergies/Adverse Reactions: Allergies Allergy/AdvReac Type Severity Reaction Status Date / Time ciprofloxacin Allergy Verified 09/22/19 20:52 piperacillin [From Zosyn] Allergy Verified 09/22/19 20:52 tazobactam [From Zosyn] Allergy Verified 09/22/19 20:52 Penicillins AdvReac Verified 09/22/19 20:52 - Home Medications Home Medications: Ambulatory Orders Gabapentin 100 mg PO PRN PRN 06/06/19 Omeprazole 20 mg PO DAILY 06/06/19 Acetaminophen [Tylenol .Regular Strength -] 650 mg PO Q6H PRN tablet 06/21/19 Heparin - 5,000 unit SQ TID vial 06/21/19 Polyethylene Glycol 3350 [Miralax 119 gm Btl -] 17 gm PO BID bottle 06/21/19 Sennosides [Senna -] 1 tab PO HS tablet 06/21/19 Aa/Hydrolyzed Collagen, Whey [Lps 15-30 Liquid] 30 ml PO BID 08/31/19 Ascorbic Acid [Vitamin C] 500 mg PO DAILY 08/31/19 Calcium (Oyster Shell) [Os-Luis 500MG -] 500 mg PO DAILY 08/31/19 Miconazole Nitrate [Secura Antifungal] 92 gm TP BID 08/31/19 Multivitamin [Multiple Vitamins] 1 each PO DAILY 08/31/19 Nystatin Powder [Nystop Topical Powder -] 15 gm TP BID 08/31/19 Oxycodone HCl 5 mg PO Q4H PRN 08/31/19 Potassium Chloride 20 meq PO DAILY 08/31/19 Simethicone 80 mg PO BID 08/31/19 Travoprost [Travatan Z] 5 ml OP HS 08/31/19 Zinc Oxide 20% Topical Oint 454 gm TP TID 08/31/19 Docusate Sodium [Colace -] 200 mg PO HS PRN 09/22/19 Ferrous Sulfate 325 mg PO DAILY 09/22/19 Review of Systems - Review of Systems Constitutional: denies: Chills, Fever Eyes: denies: Recent Change in Vision HENT: denies: Throat Pain Neck: denies: Stiffness, Tenderness Cardiovascular: denies: Chest Pain, Shortness of Breath Respiratory: denies: Cough, SOB, Wheezing Gastrointestinal: reports: Abdominal Pain. denies: Nausea, Vomiting Genitourinary: denies: Dysuria, Hematuria Neurological: denies: Dizziness, Headache Endocrine: denies: Unexplained Weight Loss Physical Exam Vital Sings: Vital Signs Temperature 96.8 F L 09/29/19 10:00 Pulse Rate 75 09/29/19 10:00 Respiratory Rate 20 09/29/19 10:00 Blood Pressure 134/64 09/29/19 10:00 O2 Sat by Pulse Oximetry (%) 98 09/27/19 21:00 Constitutional: Yes: Calm Eyes: Yes: Conjunctiva Clear, EOM Intact HENT: Yes: Atraumatic, Normocephalic Neck: Yes: Supple, Trachea Midline Cardiovascular: Yes: Regular Rate and Rhythm Respiratory: Yes: Diminished (decreased breath sounds at the bases) Gastrointestinal: Yes: Soft, Distention. No: Tenderness Edema: No Neurological: Yes: Alert Labs: CBC, BMP 09/29/19 08:09 09/29/19 08:09 Assessment/Plan Recurrent Volvulus Quadriplegia HTN DM h/o IVC filter - pt without history of smoking or pulmonary disease - no current respiratory complaints - can proceed to surgery from pulmonary standpoint - DVT prophylaxis Thank you for this consult Roni Antonio MD
[2019-09-29 11:35] LABS: INR 1.18 (0.83-1.09); PROTHROMBIN TIME (PATIENT) 13.9 SEC (9.7-13.0)
[2019-09-29] MEDS ORDERED: PEG 3350/NA SULF BICARB CL/KCL 4000 ML SOLN.RECON PO ONE (12:00)
--- NOTE | 2019-09-29 14:49 | CON.CARD ---
Consult Consult Specialty:: Cardiology Referred by:: Hermes Reason for Consultation:: Preop cardiac evaluation - History of Present Illness Chief Complaint: abd pain History of Present Illness: 73yo male with a history of HTN, NIDDM, neurogenic bladder, quadriplegia who was admitted with abdominal pain. Found to have recurrent, intermittent volvulus. Scheduled for sigmoid colectoy and colostomy. He has no history of smoking, denies any history of TX or chest pain. No orthopnea, PND or edema. Nonambulatory. 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 ? laparoscopy) - Alcohol/Substance Use Hx Alcohol Use: No History of Substance Use: reports: None - Smoking History Smoking history: Smoker current status UNK Have you smoked in the past 12 months: No - Social History Usual Living Arrangement: [facility] ADL: Support Services History of Recent Travel: No Home Medications - Allergies Allergies/Adverse Reactions: Allergies Allergy/AdvReac Type Severity Reaction Status Date / Time ciprofloxacin Allergy Verified 09/22/19 20:52 piperacillin [From Zosyn] Allergy Verified 09/22/19 20:52 tazobactam [From Zosyn] Allergy Verified 09/22/19 20:52 Penicillins AdvReac Verified 09/22/19 20:52 - Home Medications Home Medications: Ambulatory Orders Gabapentin 100 mg PO PRN PRN 06/06/19 Omeprazole 20 mg PO DAILY 06/06/19 Acetaminophen [Tylenol .Regular Strength -] 650 mg PO Q6H PRN tablet 06/21/19 Heparin - 5,000 unit SQ TID vial 06/21/19 Polyethylene Glycol 3350 [Miralax 119 gm Btl -] 17 gm PO BID bottle 06/21/19 Sennosides [Senna -] 1 tab PO HS tablet 06/21/19 Aa/Hydrolyzed Collagen, Whey [Lps 15-30 Liquid] 30 ml PO BID 08/31/19 Ascorbic Acid [Vitamin C] 500 mg PO DAILY 08/31/19 Calcium (Oyster Shell) [Os-Luis 500MG -] 500 mg PO DAILY 08/31/19 Miconazole Nitrate [Secura Antifungal] 92 gm TP BID 08/31/19 Multivitamin [Multiple Vitamins] 1 each PO DAILY 08/31/19 Nystatin Powder [Nystop Topical Powder -] 15 gm TP BID 08/31/19 Oxycodone HCl 5 mg PO Q4H PRN 08/31/19 Potassium Chloride 20 meq PO DAILY 08/31/19 Simethicone 80 mg PO BID 08/31/19 Travoprost [Travatan Z] 5 ml OP HS 08/31/19 Zinc Oxide 20% Topical Oint 454 gm TP TID 08/31/19 Docusate Sodium [Colace -] 200 mg PO HS PRN 09/22/19 Ferrous Sulfate 325 mg PO DAILY 09/22/19 Vital Signs: Vital Signs Temperature 96.8 F L 09/29/19 10:00 Pulse Rate 75 09/29/19 10:00 Respiratory Rate 20 09/29/19 10:00 Blood Pressure 134/64 09/29/19 10:00 O2 Sat by Pulse Oximetry (%) 96 09/29/19 09:00 Constitutional: Yes: No Distress, Calm Eyes: Yes: Conjunctiva Clear, EOM Intact HENT: Yes: Atraumatic, Normocephalic Neck: Yes: Trachea Midline Respiratory: Yes: CTA Bilaterally Gastrointestinal: Yes: Normal Bowel Sounds, Soft Cardiovascular: Yes: Regular Rate and Rhythm JVD: No Carotid Bruit: No PMI: Non-Displaced Heart Sounds: Yes: S1, S2 Extremities: Yes: WNL Edema: No Peripheral Pulses WNL: Yes - Other Data Labs, Other Data: CBC, BMP 09/29/19 08:09 09/29/19 08:09 INR, PTT INR 1.18 (0.83-1.09) H 09/29/19 09:37 Imaging - Results EKG: Report Reviewed (nsr nssttw changes.) Assessment/Plan 73yo male with a history of HTN, NIDDM, neurogenic bladder, quadriplegia who was admitted with abdominal pain. Found to have recurrent, intermittent volvulus. Scheduled for sigmoid colectoy and colostomy. He has no history of smoking, denies any history of TX or chest pain. No orthopnea, PND or edema. Nonambulatory. Preop Cardiac Evaluation -there are no cardiac contraindications to surgery. He is at intermediate risk of cardiac events. No further preoperative cardiac testing is needed. -call us as needed.
[2019-09-30] MEDS ORDERED: PROPOFOL 20 ML ONE ×3 (07:24→10:46)
[2019-09-30] MEDS ORDERED: BUPIVACAINE LIPOSOME/PF (EXPAREL) 266 MG/20 ML VIAL ONE (07:30)
[2019-09-30] MEDS ORDERED: BUPIVACAINE HCL/PF 0.5% (5 MG/ML) 30 ML VIAL IJ ONE (07:31)
[2019-09-30] MEDS ORDERED: SODIUM CHLORIDE 0.9% P/F 10 ML VIAL IJ ONE (07:33)
[2019-09-30] MEDS ORDERED: MIDAZOLAM HCL 2 MG/2 ML SINGLE DOSE VIAL ONE (07:47)
[2019-09-30] MEDS ORDERED: ERTAPENEM SODIUM 1 GM in SODIUM CHLORIDE 50 ML IVPB ONE (09:15)
[2019-09-30] MEDS ORDERED: ERTAPENEM SODIUM 1 GM VIAL IVPB ONE (09:15)
[2019-09-30] MEDS ORDERED: NEOSTIGMINE METHYLSULFATE 0.5 MG/ML - 10 ML MDV ONE (10:19)
[2019-09-30] MEDS ORDERED: BENZOIN/ALOE VERA/STORAX/TOLU 58 ML BOTTLE ONE (10:36)
[2019-09-30] MEDS ORDERED: HYDROmorphone HCL CARPU-JECT 2 MG/1 ML DISP.SYRIN IVPUSH ONE ×6 (11:40→12:20)
[2019-09-30] MEDS ORDERED: HYDROmorphone HCl 2 MG/ML VIAL ONE (11:41)
[2019-09-30] MEDS ORDERED: ONDANSETRON 4 MG/2 ML VIAL IVPUSH PRN ×2 (12:06→13:49)
[2019-09-30] MEDS ORDERED: MORPHINE SULFATE 2 MG/ML VIAL IVPUSH PRN (12:06)
[2019-09-30] MEDS ORDERED: HYDROmorphone HCl 2 MG/ML VIAL IVPUSH ONE ×3 (12:07)
--- NOTE | 2019-09-30 12:07 | PN ---
Progress Note, Physician Chief Complaint: Abdominal Pain Sigmoid Volvulus History of Present Illness: Previous notes and events reviewed awake and alert NAD c/o suprapubic pain POD #0 Sigmoid Colectomy with end colostomy - Current Medication List Current Medications: Active Medications Heparin Sodium (Porcine) (Heparin -) 5,000 unit SQ BID [facility] Last Admin: 09/29/19 21:41 Dose: 5,000 unit Dextrose/Sodium Chloride (D5-1/2ns -) 1,000 mls @ 75 mls/hr IV ASDIR [facility] Last Admin: 09/29/19 11:50 Dose: Not Given Multivitamins/Minerals/Vitamin C (Tab-A-Vit -) 1 tab PO DAILY [facility] Last Admin: 09/29/19 09:22 Dose: 1 tab Pantoprazole Sodium (Protonix Iv) 40 mg IVPUSH DAILY [facility] Last Admin: 09/29/19 09:22 Dose: 40 mg - Objective Vital Signs: Vital Signs Temperature 97.8 F 09/30/19 11:17 Pulse Rate 63 09/30/19 11:17 Respiratory Rate 17 09/30/19 11:17 Blood Pressure 109/47 L 09/30/19 11:17 O2 Sat by Pulse Oximetry (%) 100 09/30/19 11:17 Constitutional: Yes: No Distress, Calm Eyes: Yes: Conjunctiva Clear HENT: Yes: Atraumatic Cardiovascular: Yes: Bradycardia Respiratory: Yes: Regular, Diminished, On Nasal O2 Gastrointestinal: Yes: Hypoactive Bowel Sounds, Tenderness (diffuse), Other ( Colostomy) Genitourinary: Yes: Other (suprapubic catheter) Musculoskeletal: Yes: Muscle Weakness Extremities: Yes: WNL Edema: No Neurological: Yes: Alert, Pre-Existing Deficit Psychiatric: Yes: Alert Labs: CBC, BMP 09/29/19 08:09 09/29/19 08:09 INR, PTT INR 1.18 (0.83-1.09) H 09/29/19 09:37 Problem List - Problems (1) Abdominal pain Assessment/Plan: -GI and Surgery on board -CTAP shows moderate gasseous distention of a tortuous sigmoid colon, possibility of intermittent volvulus should be considered, inflammatory changes about the distal sigmoid and rectum suspicious for proctitis, suprapubic cystostomy tube with thickened urinary bladder, cystitis cannot be excluded cholelithiasis with no evidence of acute cholecystitis -Serial Abdominal xrays with lastest from 09/26/19 showing some decompression of sigmoid since 09/24/19 -pain control Code(s): R10.9 - UNSPECIFIED ABDOMINAL PAIN Qualifiers: Abdominal location: generalized Qualified Code(s): R10.84 - Generalized abdominal pain (2) Functional quadriplegia Assessment/Plan: -PT -Fall risk precaution Code(s): R53.2 - FUNCTIONAL QUADRIPLEGIA (3) Sigmoid volvulus Assessment/Plan: -GI and Surgery on board -CTAP shows moderate gasseous distention of a tortuous sigmoid colon, possibility of intermittent volvulus should be considered, inflammatory changes about the distal sigmoid and rectum suspicious for proctitis, suprapubic cystostomy tube with thickened urinary bladder, cystitis cannot be excluded cholelithiasis with no evidence of acute cholecystitis -Serial Abdominal xrays with lastest from 09/26/19 showing some decompression of sigmoid since 09/24/19 -pain control -Rectal tube in for decompression -POD# 0 sigmoid colectomy with end colostomy 09/30/19 -Incentive spirometer -pain control Code(s): K56.2 - VOLVULUS (4) Stage 4 decubitus ulcer Assessment/Plan: -Vascular on board -reposition q2h -air mattress -drawsheets and Trendelenburg when repositioning to avoid friction and shear -manage incontinence in timely manner -offloading -pack sacral wound with moist kerlix and apply dressing -no surgical debridement at this time Code(s): L89.94 - PRESSURE ULCER OF UNSPECIFIED SITE, STAGE 4 (5) Abdominal distension Assessment/Plan: -GI and Surgery on board -CTAP shows moderate gasseous distention of a tortuous sigmoid colon, possibility of intermittent volvulus should be considered, inflammatory changes about the distal sigmoid and rectum suspicious for proctitis, suprapubic cystostomy tube with thickened urinary bladder, cystitis cannot be excluded cholelithiasis with no evidence of acute cholecystitis -Serial Abdominal xrays with lastest from 09/26/19 showing some decompression of sigmoid since 09/24/19 Code(s): R14.0 - ABDOMINAL DISTENSION (GASEOUS) (6) Anemia Assessment/Plan: -Hg 8.2 -transfuse for Hg <7.0 to avoid fluid overload -Anemia panel show low Fe and TIBC -MVI Code(s): D64.9 - ANEMIA, UNSPECIFIED (7) HTN (hypertension) Assessment/Plan: -monitor BP -low Na diet Code(s): I10 - ESSENTIAL (PRIMARY) HYPERTENSION (8) Neurogenic bladder Assessment/Plan: -Urology on board -recommend suprapubic catheter change prior to discharge -c/o suprapubic catheter pain, re-call Urology to eval patient Code(s): N31.9 - NEUROMUSCULAR DYSFUNCTION OF BLADDER, UNSPECIFIED (9) UTI (urinary tract infection) Assessment/Plan: -ID on board -UA shows 3+ leuks, 3+ blood, 3+ -UC neg -no leukocytosis -afebrile -no antibiotic intervention at present, observe off Code(s): N39.0 - URINARY TRACT INFECTION, SITE NOT SPECIFIED Qualifiers: Hematuria presence: with hematuria Assessment/Plan see problem list dvt ppx
--- NOTE | 2019-09-30 12:13 | OP ---
Operative Note - Note: Operative Date: 09/30/19 Pre-Operative Diagnosis: sigmoid volvulus Operation: sigmoid colon resection and colostomy Findings: redundant patulous sigmoid colon Post-Operative Diagnosis: Same as Pre-op Surgeon: Chapo Quintero Diving Fisher: Heriberto Elam Anesthesia: General Specimens Removed: sigmoid colon Estimated Blood Loss (mls): 75
[2019-09-30] MEDS ORDERED: LACTATED RINGERS SOLUTION 1,000 ML IV SCH (12:15)
--- NOTE | 2019-09-30 12:34 | SURG ---
Surgery Fire Claims Adjuster Note Fire Claims Adjuster: Heriberto Elam PA-C Date of Service: 09/30/19 Diagnosis: sigmoid volvulus Procedure: sigmoid colon resection and colostomy I was present for the entirety of the operative procedure. For further detail, please refer to operative report. Visit type - Case Type Case Type: ED Admission - Emergency Emergency Visit: Yes ED Registration Date: 09/23/19 Care time: The patient presented to the Emergency Department on the above date and was hospitalized for further evaluation of their emergent condition. - New patient This patient is new to me today: No - Critical Care Critical Care patient: No
[2019-09-30] MEDS ORDERED: ACETAMINOPHEN INJECTION 100 ML IVPB ONE (12:40)
[2019-09-30] MEDS ORDERED: ACETAMINOPHEN 1000 MG/100 ML VIAL (NON FORMULARY) IVPB ONE ×2 (12:43)
[2019-09-30] MEDS ORDERED: HYDROmorphone HCl 2 MG/ML VIAL IVPB PRN (13:07)
[2019-09-30] MEDS: MULTIVITAMINS (DAILY MVI) TABLET (FP) PO SCH (14:16)
[2019-09-30] MEDS: PANTOPRAZOLE SODIUM 40 MG VIAL IVPUSH SCH (14:16)
[2019-09-30] MEDS: HEPARIN NA (PORCINE) 5,000 UNITS/ML 1ML VIAL SQ SCH ×2 (14:16→21:29)
[2019-09-30] MEDS: DEXTROSE 5%-0.45% SALINE 1,000 ML IV SCH (14:18)
[2019-09-30] MEDS: MORPHINE SULFATE 2 MG/ML VIAL IVPUSH PRN ×2 (15:08→21:30)
[2019-09-30 15:54] LABS: HEMATOCRIT 29.9 % (35.4-49); HEMOGLOBIN 9.6 GM/dL (11.7-16.9); MCH 26.7 pg (25.7-33.7); MEAN CELL VOLUME 83.5 fl (80-96); PLATELET COUNT 420 K/MM3 (134-434); RBC 3.59 M/mm3 (4.00-5.60); RDW 15.1 % (11.9-15.9); WHITE BLOOD COUNT 18.4 K/mm3 (4.0-10.0)
[2019-09-30 15:58] LABS: MEAN PLT VOLUME 5.8 fl (7.5-11.1)
[2019-09-30 16:30] LABS: ALBUMIN 1.4 g/dl (3.4-5.0); BILIRUBIN,TOTAL 0.3 mg/dL (0.2-1); BLOOD UREA NITROGEN 11.6 mg/dL (7-18); CALCIUM 7.7 mg/dL (8.5-10.1); POTASSIUM 3.8 mmol/L (3.5-5.1); TOT PROT 4.6 g/dl (6.4-8.2)
[2019-09-30] MEDS: KETOROLAC TROMETHAMINE 15 MG/ML VIAL IVPUSH PRN ×2 (17:01→23:45)
[2019-10-01] MEDS: MULTIVITAMINS (DAILY MVI) TABLET (FP) PO SCH (09:48)
[2019-10-01] MEDS: PANTOPRAZOLE SODIUM 40 MG VIAL IVPUSH SCH (09:59)
[2019-10-01] MEDS: HEPARIN NA (PORCINE) 5,000 UNITS/ML 1ML VIAL SQ SCH ×2 (09:59→23:31)
[2019-10-01] MEDS: KETOROLAC TROMETHAMINE 15 MG/ML VIAL IVPUSH PRN ×2 (10:08→23:27)
--- NOTE | 2019-10-01 10:59 | PN ---
Progress Note, Physician Chief Complaint: Sigmoid volvolus History of Present Illness: Operative Date: 09/30/19 Pre-Operative Diagnosis: sigmoid volvulus Operation: sigmoid colon resection and colostomy Findings: redundant patulous sigmoid colon NAD c/o incisional pain, and throat irritation - Current Medication List Current Medications: Active Medications Heparin Sodium (Porcine) (Heparin -) 5,000 unit SQ BID [facility] Last Admin: 10/01/19 09:59 Dose: 5,000 unit Hydromorphone HCl (Dilaudid Vial -) 0.5 mg IVPB Q4H PRN PRN Reason: PAIN LEVEL 4 - 6 Stop: 10/01/19 13:06 Last Admin: 09/30/19 18:13 Dose: 0.5 mg Dextrose/Sodium Chloride (D5-1/2ns -) 1,000 mls @ 75 mls/hr IV ASDIR [facility] Last Admin: 09/30/19 14:18 Dose: 75 mls/hr Lactated Ringer's (Lactated Ringers Solution) 1,000 mls @ 75 mls/hr IV ASDIR [facility] Ketorolac Tromethamine (Toradol Injection -) 15 mg IVPUSH Q6H PRN PRN Reason: PAIN LEVEL 1 - 3 Stop: 10/05/19 13:06 Last Admin: 10/01/19 10:08 Dose: 15 mg Morphine Sulfate (Morphine Sulfate) 1 mg IVPUSH Q6H PRN PRN Reason: PAIN LEVEL 6-10 Last Admin: 09/30/19 21:30 Dose: 1 mg Multivitamins/Minerals/Vitamin C (Tab-A-Vit -) 1 tab PO DAILY [facility] Last Admin: 10/01/19 09:48 Dose: Not Given Ondansetron HCl (Zofran Injection) 4 mg IVPUSH Q6H PRN PRN Reason: NAUSEA AND/OR VOMITING Pantoprazole Sodium (Protonix Iv) 40 mg IVPUSH DAILY [facility] Last Admin: 10/01/19 09:59 Dose: 40 mg - Objective Vital Signs: Vital Signs Temperature 98.4 F 10/01/19 08:00 Pulse Rate 71 10/01/19 08:00 Respiratory Rate 16 10/01/19 08:00 Blood Pressure 140/55 L 10/01/19 08:00 O2 Sat by Pulse Oximetry (%) 100 09/30/19 21:00 Constitutional: Yes: Well Nourished, No Distress, Calm Cardiovascular: Yes: Regular Rate and Rhythm Respiratory: Yes: Regular Gastrointestinal: Yes: Normal Bowel Sounds, Soft, Other (LLQ colostomy) Genitourinary: Yes: Other (suprapubic catheter) Musculoskeletal: Yes: Muscle Weakness Extremities: Yes: WNL Edema: No Peripheral Pulses WNL: Yes Wound/Incision: Yes: Dressing Dry and Intact (mild sanguinous drainage) Neurological: Yes: Alert, Oriented Psychiatric: Yes: Alert, Oriented Labs: CBC, BMP 09/30/19 14:50 09/30/19 14:50 INR, PTT INR 1.18 (0.83-1.09) H 09/29/19 09:37 Assessment/Plan (1) Abdominal pain Assessment/Plan: -GI and Surgery on board -CTAP shows moderate gasseous distention of a tortuous sigmoid colon, possibility of intermittent volvulus should be considered, inflammatory changes about the distal sigmoid and rectum suspicious for proctitis, suprapubic cystostomy tube with thickened urinary bladder, cystitis cannot be excluded cholelithiasis with no evidence of acute cholecystitis -pain control -Has chronic suprapubic pain Code(s): R10.9 - UNSPECIFIED ABDOMINAL PAIN Qualifiers: Abdominal location: generalized Qualified Code(s): R10.84 - Generalized abdominal pain (2) Functional quadriplegia Assessment/Plan: -PT -Fall risk precaution Code(s): R53.2 - FUNCTIONAL QUADRIPLEGIA (3) Sigmoid volvulus Assessment/Plan: -GI and Surgery on board -POD# 1 sigmoid colectomy with end colostomy 09/30/19 -Incentive spirometer -pain control Code(s): K56.2 - VOLVULUS (4) Stage 4 decubitus ulcer Assessment/Plan: -Vascular on board -reposition q2h -air mattress -Drawsheets and Trendelenburg when repositioning to avoid friction and shear -manage incontinence in timely manner -offloading -pack sacral wound with moist kerlix and apply dressing -no surgical debridement at this time Code(s): L89.94 - PRESSURE ULCER OF UNSPECIFIED SITE, STAGE 4 (5) Abdominal distension Assessment/Plan: -GI and Surgery on board Code(s): R14.0 - ABDOMINAL DISTENSION (GASEOUS) (6) Anemia Assessment/Plan: -transfuse for Hg <7.0 to avoid fluid overload -Anemia panel show low Fe and TIBC -MVI Code(s): D64.9 - ANEMIA, UNSPECIFIED (7) HTN (hypertension) Assessment/Plan: -monitor BP -low Na diet Code(s): I10 - ESSENTIAL (PRIMARY) HYPERTENSION (8) Neurogenic bladder Assessment/Plan: -Urology on board -Suprapubic catheter replaced on 09/23/19 Code(s): N31.9 - NEUROMUSCULAR DYSFUNCTION OF BLADDER, UNSPECIFIED (9) UTI (urinary tract infection) Assessment/Plan: -ID on board -UC neg -no leukocytosis -afebrile -no antibiotic intervention at present, observe off Code(s): N39.0 - URINARY TRACT INFECTION, SITE NOT SPECIFIED Qualifiers: Hematuria presence: with hematuria Assessment/Plan see problem list dvt ppx
[2019-10-01] MEDS ORDERED: BENZOCAINE/MENTH/CETYLPYRD CL 1 EACH LOZENGE MM PRN (11:02)
[2019-10-01] MEDS: DEXTROSE 5%-0.45% SALINE 1,000 ML IV SCH (14:37)
[2019-10-01] MEDS: MORPHINE SULFATE 2 MG/ML VIAL IVPUSH PRN (14:47)
--- NOTE | 2019-10-01 20:41 | PN ---
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 No new c/o. Pre-Operative Diagnosis: sigmoid volvulus Operation: sigmoid colon resection and colostomy Vital Signs Period Temp Pulse Resp BP Sys/Bradley Pulse Ox Last 24 Hr 97.4 F-98.4 F 71-74 16-18 140-150/55-62 100-100 CBC, BMP 09/30/19 14:50 09/30/19 14:50 Current Medications Generic Name Dose Route Start Last Admin Trade Name Freq PRN Reason Stop Dose Admin Benzocaine/Menthol 1 each 10/01/19 11:02 10/01/19 18:37 Cepacol Lozenge - MM 1 each PRN PRN Administration SORE THROAT Heparin Sodium (Porcine) 5,000 unit 09/30/19 22:00 10/01/19 09:59 Heparin - SQ 5,000 unit BID [facility] Administration Dextrose/Sodium Chloride 1,000 mls @ 75 mls/hr 09/30/19 13:49 10/01/19 14:37 D5-1/2ns - IV 75 mls/hr ASDIR [facility] Administration Lactated Ringer's 1,000 mls @ 75 mls/hr 09/30/19 13:49 Lactated Ringers Solution IV ASDIR [facility] Ketorolac Tromethamine 15 mg 09/30/19 13:07 10/01/19 10:08 Toradol Injection - IVPUSH 10/05/19 13:06 15 mg Q6H PRN Administration PAIN LEVEL 1 - 3 Morphine Sulfate 1 mg 09/30/19 13:49 10/01/19 14:47 Morphine Sulfate IVPUSH 1 mg Q6H PRN Administration PAIN LEVEL 6-10 Multivitamins/Minerals/Vitamin C 1 tab 10/01/19 10:00 10/01/19 09:48 Tab-A-Vit - PO Not Given DAILY [facility] Ondansetron HCl 4 mg 09/30/19 13:49 Zofran Injection IVPUSH Q6H PRN NAUSEA AND/OR VOMITING Pantoprazole Sodium 40 mg 10/01/19 10:00 10/01/19 09:59 Protonix Iv IVPUSH 40 mg DAILY [facility] Administration - No anesthetic complications.
[2019-10-02] MEDS: DEXTROSE 5%-0.45% SALINE 1,000 ML IV SCH ×2 (04:00→16:42)
--- NOTE | 2019-10-02 08:58 | PN ---
Progress Note (short form) - Note Progress Note: Attending Surgeon POD#2 No c/o VSS AF abdo-soft and slightly tympanitic; ostomy viable and putting out gas and liquid stool; wound open and intact; o/w negative. AM labs pending IMP:doing well PLAN: Dressing changes and LWC rendered;start clear liquid diet. Chapo Quintero MD FACS
[2019-10-02 09:00] LABS: BASO % 0.3 % (0-2.0); HEMATOCRIT 26.9 % (35.4-49); HEMOGLOBIN 8.6 GM/dL (11.7-16.9); LYMPH % 8.4 % (8-40); MCH 26.8 pg (25.7-33.7); MEAN CELL VOLUME 83.8 fl (80-96); MEAN PLT VOLUME 6.2 fl (7.5-11.1); MONO % 4.8 % (3.8-10.2); NEUT % 83.5 % (42.8-82.8); PLATELET COUNT 324 K/MM3 (134-434); RBC 3.21 M/mm3 (4.00-5.60); RDW 15.7 % (11.9-15.9); WHITE BLOOD COUNT 12.2 K/mm3 (4.0-10.0)
[2019-10-02] MEDS: MULTIVITAMINS (DAILY MVI) TABLET (FP) PO SCH (09:01)
[2019-10-02] MEDS: PANTOPRAZOLE SODIUM 40 MG VIAL IVPUSH SCH (09:49)
[2019-10-02] MEDS: KETOROLAC TROMETHAMINE 15 MG/ML VIAL IVPUSH PRN (09:50)
[2019-10-02] MEDS: HEPARIN NA (PORCINE) 5,000 UNITS/ML 1ML VIAL SQ SCH ×2 (09:50→21:12)
[2019-10-02 10:11] LABS: ALBUMIN 1.3 g/dl (3.4-5.0); BILIRUBIN,TOTAL 0.3 mg/dL (0.2-1); BLOOD UREA NITROGEN 15.6 mg/dL (7-18); CREATININE 1.2 mg/dL (0.55-1.3); POTASSIUM 3.9 mmol/L (3.5-5.1); TOT PROT 4.4 g/dl (6.4-8.2)
[2019-10-02 10:12] LABS: CALCIUM 7.2 mg/dL (8.5-10.1)
--- NOTE | 2019-10-02 10:14 | PN ---
Progress Note, Physician Chief Complaint: Sigmoid volvolus History of Present Illness: Operative Date: 09/30/19 Pre-Operative Diagnosis: sigmoid volvulus Operation: sigmoid colon resection and colostomy Findings: redundant patulous sigmoid colon NAD c/o incisional pain, and throat irritation - Current Medication List Current Medications: Active Medications Benzocaine/Menthol (Cepacol Lozenge -) 1 each MM PRN PRN PRN Reason: SORE THROAT Last Admin: 10/01/19 18:37 Dose: 1 each Heparin Sodium (Porcine) (Heparin -) 5,000 unit SQ BID [facility] Last Admin: 10/02/19 09:50 Dose: 5,000 unit Dextrose/Sodium Chloride (D5-1/2ns -) 1,000 mls @ 75 mls/hr IV ASDIR [facility] Last Admin: 10/02/19 04:00 Dose: 75 mls/hr Lactated Ringer's (Lactated Ringers Solution) 1,000 mls @ 75 mls/hr IV ASDIR [facility] Ketorolac Tromethamine (Toradol Injection -) 15 mg IVPUSH Q6H PRN PRN Reason: PAIN LEVEL 1 - 3 Stop: 10/05/19 13:06 Last Admin: 10/02/19 09:50 Dose: 15 mg Morphine Sulfate (Morphine Sulfate) 1 mg IVPUSH Q6H PRN PRN Reason: PAIN LEVEL 6-10 Last Admin: 10/01/19 14:47 Dose: 1 mg Multivitamins/Minerals/Vitamin C (Tab-A-Vit -) 1 tab PO DAILY [facility] Last Admin: 10/02/19 09:01 Dose: Not Given Ondansetron HCl (Zofran Injection) 4 mg IVPUSH Q6H PRN PRN Reason: NAUSEA AND/OR VOMITING Pantoprazole Sodium (Protonix Iv) 40 mg IVPUSH DAILY [facility] Last Admin: 10/02/19 09:49 Dose: 40 mg - Objective Vital Signs: Vital Signs Temperature 98.3 F 10/02/19 02:00 Pulse Rate 73 10/02/19 02:00 Respiratory Rate 18 10/02/19 02:00 Blood Pressure 151/61 10/02/19 02:00 O2 Sat by Pulse Oximetry (%) 100 10/01/19 21:00 Constitutional: Yes: No Distress, Calm, Cachectic Cardiovascular: Yes: Regular Rate and Rhythm Respiratory: Yes: Regular Gastrointestinal: Yes: Normal Bowel Sounds, Soft, Other (LLQ colostomy- stool+ flatus) Genitourinary: Yes: Rowe Present Musculoskeletal: Yes: WNL Extremities: Yes: WNL Edema: No Peripheral Pulses WNL: Yes Neurological: Yes: Alert, Oriented Psychiatric: Yes: Alert, Oriented Labs: CBC, BMP 10/02/19 08:00 INR, PTT INR 1.18 (0.83-1.09) H 09/29/19 09:37 Assessment/Plan (1) Abdominal pain Assessment/Plan: -GI and Surgery on board -CTAP shows moderate gasseous distention of a tortuous sigmoid colon, possibility of intermittent volvulus should be considered, inflammatory changes about the distal sigmoid and rectum suspicious for proctitis, suprapubic cystostomy tube with thickened urinary bladder, cystitis cannot be excluded cholelithiasis with no evidence of acute cholecystitis -pain control -Has chronic suprapubic pain Code(s): R10.9 - UNSPECIFIED ABDOMINAL PAIN Qualifiers: Abdominal location: generalized Qualified Code(s): R10.84 - Generalized abdominal pain (2) Functional quadriplegia Assessment/Plan: -PT -Fall risk precaution Code(s): R53.2 - FUNCTIONAL QUADRIPLEGIA (3) Sigmoid volvulus Assessment/Plan: -GI and Surgery on board -POD# 3 sigmoid colectomy with end colostomy 09/30/19 -Incentive spirometer -pain control -Start clear liquids Code(s): K56.2 - VOLVULUS (4) Stage 4 decubitus ulcer Assessment/Plan: -Vascular on board -reposition q2h -air mattress -Drawsheets and Trendelenburg when repositioning to avoid friction and shear -manage incontinence in timely manner -offloading -pack sacral wound with moist kerlix and apply dressing -no surgical debridement at this time Code(s): L89.94 - PRESSURE ULCER OF UNSPECIFIED SITE, STAGE 4 (5) Abdominal distension Assessment/Plan: -GI and Surgery on board Code(s): R14.0 - ABDOMINAL DISTENSION (GASEOUS) (6) Anemia Assessment/Plan: -transfuse for Hg <7.0 to avoid fluid overload -Anemia panel show low Fe and TIBC -MVI Code(s): D64.9 - ANEMIA, UNSPECIFIED (7) HTN (hypertension) Assessment/Plan: -monitor BP -low Na diet Code(s): I10 - ESSENTIAL (PRIMARY) HYPERTENSION (8) Neurogenic bladder Assessment/Plan: -Urology on board -Suprapubic catheter replaced on 09/23/19 Code(s): N31.9 - NEUROMUSCULAR DYSFUNCTION OF BLADDER, UNSPECIFIED (9) UTI (urinary tract infection) Assessment/Plan: -ID on board -UC neg -no leukocytosis -afebrile -no antibiotic intervention at present, observe off Code(s): N39.0 - URINARY TRACT INFECTION, SITE NOT SPECIFIED Qualifiers: Hematuria presence: with hematuria Assessment/Plan see problem list dvt ppx
[2019-10-02] MEDS: LACTATED RINGERS SOLUTION 1,000 ML IV SCH (16:43)
[2019-10-02] MEDS: AMINO ACIDS/PROTEIN HYDROLYS 30 ML LIQUID.PKT PO SCH (16:43)
[2019-10-03] MEDS: DEXTROSE 5%-0.45% SALINE 1,000 ML IV SCH (06:02)
--- NOTE | 2019-10-03 08:18 | PN ---
Progress Note, Physician - Current Medication List Current Medications: Active Medications Amino Acids (Prosource No Carb Liquid Pkt) 30 ml PO BID@0800,1730 [facility] Last Admin: 10/02/19 16:43 Dose: 30 ml Benzocaine/Menthol (Cepacol Lozenge -) 1 each MM PRN PRN PRN Reason: SORE THROAT Last Admin: 10/01/19 18:37 Dose: 1 each Heparin Sodium (Porcine) (Heparin -) 5,000 unit SQ BID [facility] Last Admin: 10/02/19 21:12 Dose: 5,000 unit Dextrose/Sodium Chloride (D5-1/2ns -) 1,000 mls @ 75 mls/hr IV ASDIR [facility] Last Admin: 10/03/19 06:02 Dose: 75 mls/hr Lactated Ringer's (Lactated Ringers Solution) 1,000 mls @ 75 mls/hr IV ASDIR [facility] Last Admin: 10/02/19 16:43 Dose: Not Given Ketorolac Tromethamine (Toradol Injection -) 15 mg IVPUSH Q6H PRN PRN Reason: PAIN LEVEL 1 - 3 Stop: 10/05/19 13:06 Last Admin: 10/02/19 09:50 Dose: 15 mg Morphine Sulfate (Morphine Sulfate) 1 mg IVPUSH Q6H PRN PRN Reason: PAIN LEVEL 6-10 Last Admin: 10/01/19 14:47 Dose: 1 mg Multivitamins/Minerals/Vitamin C (Tab-A-Vit -) 1 tab PO DAILY [facility] Last Admin: 10/02/19 09:01 Dose: Not Given Ondansetron HCl (Zofran Injection) 4 mg IVPUSH Q6H PRN PRN Reason: NAUSEA AND/OR VOMITING Pantoprazole Sodium (Protonix Iv) 40 mg IVPUSH DAILY [facility] Last Admin: 10/02/19 09:49 Dose: 40 mg - Objective Vital Signs: Vital Signs Temperature 98.4 F 10/02/19 10:00 Pulse Rate 70 10/02/19 22:00 Respiratory Rate 20 10/02/19 22:00 Blood Pressure 140/60 10/02/19 22:00 O2 Sat by Pulse Oximetry (%) 99 10/02/19 21:00 Cardiovascular: Yes: Regular Rate and Rhythm Respiratory: Yes: Regular, CTA Bilaterally Gastrointestinal: Yes: Normal Bowel Sounds, Soft, Other (colostomy) Labs: CBC, BMP 10/02/19 08:00 10/02/19 08:00 INR, PTT INR 1.18 (0.83-1.09) H 09/29/19 09:37 Problem List - Problems (1) Abdominal distension Code(s): R14.0 - ABDOMINAL DISTENSION (GASEOUS) (2) Functional quadriplegia Code(s): R53.2 - FUNCTIONAL QUADRIPLEGIA (3) Stage 4 decubitus ulcer Code(s): L89.94 - PRESSURE ULCER OF UNSPECIFIED SITE, STAGE 4 (4) HTN (hypertension) Code(s): I10 - ESSENTIAL (PRIMARY) HYPERTENSION (5) Suprapubic catheter Code(s): Z93.59 - OTHER CYSTOSTOMY STATUS Assessment/Plan (1) Abdominal pain Assessment/Plan: -GI and Surgery on board -CTAP shows moderate gasseous distention of a tortuous sigmoid colon, possibility of intermittent volvulus should be considered, inflammatory changes about the distal sigmoid and rectum suspicious for proctitis, suprapubic cystostomy tube with thickened urinary bladder, cystitis cannot be excluded cholelithiasis with no evidence of acute cholecystitis -pain control -Has chronic suprapubic pain Code(s): R10.9 - UNSPECIFIED ABDOMINAL PAIN Qualifiers: Abdominal location: generalized Qualified Code(s): R10.84 - Generalized abdominal pain (2) Functional quadriplegia Assessment/Plan: -PT -Fall risk precaution Code(s): R53.2 - FUNCTIONAL QUADRIPLEGIA (3) Sigmoid volvulus Assessment/Plan: -GI and Surgery on board -POD# 4 sigmoid colectomy with end colostomy 09/30/19 -Incentive spirometer -pain control -Start clear liquids Code(s): K56.2 - VOLVULUS (4) Stage 4 decubitus ulcer Assessment/Plan: -Vascular on board -reposition q2h -air mattress -Drawsheets and Trendelenburg when repositioning to avoid friction and shear -manage incontinence in timely manner -offloading -pack sacral wound with moist kerlix and apply dressing -no surgical debridement at this time Code(s): L89.94 - PRESSURE ULCER OF UNSPECIFIED SITE, STAGE 4 (5) Abdominal distension Assessment/Plan: -GI and Surgery on board-Improved Code(s): R14.0 - ABDOMINAL DISTENSION (GASEOUS) (6) Anemia Assessment/Plan: -transfuse for Hg <7.0 to avoid fluid overload -Anemia panel show low Fe and TIBC -MVI Code(s): D64.9 - ANEMIA, UNSPECIFIED (7) HTN (hypertension) Assessment/Plan: -monitor BP -low Na diet Code(s): I10 - ESSENTIAL (PRIMARY) HYPERTENSION (8) Neurogenic bladder Assessment/Plan: -Urology on board -Suprapubic catheter replaced on 09/23/19 Code(s): N31.9 - NEUROMUSCULAR DYSFUNCTION OF BLADDER, UNSPECIFIED (9) UTI (urinary tract infection) Assessment/Plan: -ID on board -UC neg -no leukocytosis -afebrile -no antibiotic intervention at present, observe off Code(s): N39.0 - URINARY TRACT INFECTION, SITE NOT SPECIFIED Qualifiers: Hematuria presence: with hematuria
[2019-10-03] MEDS: MORPHINE SULFATE 2 MG/ML VIAL IVPUSH PRN (08:57)
[2019-10-03] MEDS: PANTOPRAZOLE SODIUM 40 MG VIAL IVPUSH SCH ×2 (08:57→09:08)
[2019-10-03] MEDS: AMINO ACIDS/PROTEIN HYDROLYS 30 ML LIQUID.PKT PO SCH ×2 (08:58→17:25)
[2019-10-03] MEDS: MULTIVITAMINS (DAILY MVI) TABLET (FP) PO SCH ×2 (08:58→09:08)
[2019-10-03] MEDS: HEPARIN NA (PORCINE) 5,000 UNITS/ML 1ML VIAL SQ SCH ×2 (09:08→21:56)
--- NOTE | 2019-10-03 09:50 | PN ---
Progress Note (short form) - Note Progress Note: POD#1 Pt with complaints of abd pain this am. No nausea or vomiting. Tolerating clears. Vital Signs Period Temp Pulse Resp BP Sys/Bradley Pulse Ox Last 24 Hr 98 F-98.4 F 66-74 20-20 130-143/55-60 99 GEN: Alert, NAD ABD: soft, non-distended, mild abd tenderness. Midline inc, dressing changed and wound irrigated with NS at the base. Fascia intact. No drainage or erythema noted. Ostomy viable and with stool/air. CBC, BMP 10/02/ 08:00 10/02/ 08:00 A/P: 73 yo male s/p sigmoid resection with end colostomy Continue local wound care with wet to dry packing/ostomy care Pain managment as needed May advance diet as needed D/w. Dr. Quintero
--- NOTE | 2019-10-03 10:33 | PN ---
Progress Note (short form) - Note Progress Note: Resting in NAD. Post-op abdominal pain. No CP or SOB. No acute events overnight. Intake & Output 09/30/19 10/01/19 10/02/19 10/03/19 23:59 23:59 23:59 23:59 Intake Total 3700 1770 2350 1330 Output Total 4375 500 2100 550 Balance -675 1270 250 780 Last Vital Signs Temp Pulse Resp BP Pulse Ox 98 F 66 20 143/55 L 99 10/03/19 08:58 10/03/19 08:58 10/03/19 08:58 10/03/19 08:58 10/02/19 21:00 Active Medications Amino Acids (Prosource No Carb Liquid Pkt) 30 ml PO BID@0800,1730 [facility] Last Admin: 10/03/19 08:58 Dose: 30 ml Benzocaine/Menthol (Cepacol Lozenge -) 1 each MM PRN PRN PRN Reason: SORE THROAT Last Admin: 10/01/19 18:37 Dose: 1 each Heparin Sodium (Porcine) (Heparin -) 5,000 unit SQ BID [facility] Last Admin: 10/03/19 09:08 Dose: 5,000 unit Dextrose/Sodium Chloride (D5-1/2ns -) 1,000 mls @ 75 mls/hr IV ASDIR [facility] Last Admin: 10/03/19 06:02 Dose: 75 mls/hr Lactated Ringer's (Lactated Ringers Solution) 1,000 mls @ 75 mls/hr IV ASDIR [facility] Last Admin: 10/02/19 16:43 Dose: Not Given Ketorolac Tromethamine (Toradol Injection -) 15 mg IVPUSH Q6H PRN PRN Reason: PAIN LEVEL 1 - 3 Stop: 10/05/19 13:06 Last Admin: 10/02/19 09:50 Dose: 15 mg Morphine Sulfate (Morphine Sulfate) 1 mg IVPUSH Q6H PRN PRN Reason: PAIN LEVEL 6-10 Last Admin: 10/03/19 08:57 Dose: 1 mg Multivitamins/Minerals/Vitamin C (Tab-A-Vit -) 1 tab PO DAILY [facility] Last Admin: 10/03/19 09:08 Dose: Not Given Ondansetron HCl (Zofran Injection) 4 mg IVPUSH Q6H PRN PRN Reason: NAUSEA AND/OR VOMITING Pantoprazole Sodium (Protonix Iv) 40 mg IVPUSH DAILY [facility] Last Admin: 10/03/19 09:08 Dose: Not Given Constitutional: Yes: NAD Eyes: Yes: Conjunctiva Clear, EOM Intact HENT: Yes: Atraumatic, Normocephalic Neck: Yes: Supple, Trachea Midline Cardiovascular: Yes: Regular Rate and Rhythm Respiratory: Yes: Diminished (decreased breath sounds at the bases) Gastrointestinal: soft, non-distended, mild abd tenderness. dressing intact. Ostomy appears viable and with stool/air. Edema: No Neurological: Yes: Alert Labs: Laboratory Results - last 24 hr 09/29/19 10/02/19 10/03/19 09:37 21:46 05:59 POC Glucometer 122 103 Blood Type A POSITIVE Antibody Screen Negative Crossmatch IS Only See Detail Assessment/Plan POD #3: Sigmoid colon resection and colostomy due to redundant patulous sigmoid colon Recurrent Volvulus Quadriplegia HTN DM h/o IVC filter Pain control Incentive Spirometry O2 as needed VTE prophylaxis PO per surgery Dr Birmingham
[2019-10-03] MEDS: KETOROLAC TROMETHAMINE 15 MG/ML VIAL IVPUSH PRN (16:10)
[2019-10-03] MEDS: LACTATED RINGERS SOLUTION 1,000 ML IV SCH (17:25)
--- NOTE | 2019-10-04 08:21 | PN ---
Progress Note, Physician - Current Medication List Current Medications: Active Medications Amino Acids (Prosource No Carb Liquid Pkt) 30 ml PO BID@0800,1730 [facility] Last Admin: 10/03/19 17:25 Dose: 30 ml Benzocaine/Menthol (Cepacol Lozenge -) 1 each MM PRN PRN PRN Reason: SORE THROAT Last Admin: 10/01/19 18:37 Dose: 1 each Heparin Sodium (Porcine) (Heparin -) 5,000 unit SQ BID [facility] Last Admin: 10/03/19 21:56 Dose: 5,000 unit Dextrose/Sodium Chloride (D5-1/2ns -) 1,000 mls @ 75 mls/hr IV ASDIR [facility] Last Admin: 10/03/19 06:02 Dose: 75 mls/hr Lactated Ringer's (Lactated Ringers Solution) 1,000 mls @ 75 mls/hr IV ASDIR [facility] Last Admin: 10/03/19 17:25 Dose: Not Given Ketorolac Tromethamine (Toradol Injection -) 15 mg IVPUSH Q6H PRN PRN Reason: PAIN LEVEL 1 - 3 Stop: 10/05/19 13:06 Last Admin: 10/03/19 16:10 Dose: 15 mg Multivitamins/Minerals/Vitamin C (Tab-A-Vit -) 1 tab PO DAILY [facility] Last Admin: 10/03/19 09:08 Dose: Not Given Ondansetron HCl (Zofran Injection) 4 mg IVPUSH Q6H PRN PRN Reason: NAUSEA AND/OR VOMITING Pantoprazole Sodium (Protonix Iv) 40 mg IVPUSH DAILY [facility] Last Admin: 10/03/19 09:08 Dose: Not Given - Objective Vital Signs: Vital Signs Temperature 97.7 F 10/04/19 05:51 Pulse Rate 72 10/04/19 05:51 Respiratory Rate 18 10/04/19 05:51 Blood Pressure 136/58 L 10/04/19 05:51 O2 Sat by Pulse Oximetry (%) 100 10/03/19 21:00 Cardiovascular: Yes: S1, S2 Respiratory: Yes: Regular, CTA Bilaterally Gastrointestinal: Yes: Normal Bowel Sounds, Soft, Other (colostomy--functioning) Labs: CBC, BMP 10/02/19 08:00 10/02/19 08:00 INR, PTT INR 1.18 (0.83-1.09) H 09/29/19 09:37 Problem List - Problems (1) Abdominal distension Code(s): R14.0 - ABDOMINAL DISTENSION (GASEOUS) (2) Functional quadriplegia Code(s): R53.2 - FUNCTIONAL QUADRIPLEGIA (3) Stage 4 decubitus ulcer Code(s): L89.94 - PRESSURE ULCER OF UNSPECIFIED SITE, STAGE 4 (4) HTN (hypertension) Code(s): I10 - ESSENTIAL (PRIMARY) HYPERTENSION (5) Suprapubic catheter Code(s): Z93.59 - OTHER CYSTOSTOMY STATUS Assessment/Plan (1) Abdominal pain Assessment/Plan: -GI and Surgery on board -CTAP shows moderate gasseous distention of a tortuous sigmoid colon, possibility of intermittent volvulus should be considered, inflammatory changes about the distal sigmoid and rectum suspicious for proctitis, suprapubic cystostomy tube with thickened urinary bladder, cystitis cannot be excluded cholelithiasis with no evidence of acute cholecystitis -pain control -Has chronic suprapubic pain Code(s): R10.9 - UNSPECIFIED ABDOMINAL PAIN Qualifiers: Abdominal location: generalized Qualified Code(s): R10.84 - Generalized abdominal pain (2) Functional quadriplegia Assessment/Plan: -PT -Fall risk precaution Code(s): R53.2 - FUNCTIONAL QUADRIPLEGIA (3) Sigmoid volvulus Assessment/Plan: -GI and Surgery on board -POD# 5 sigmoid colectomy with end colostomy 09/30/19 -Incentive spirometer -pain control -Start clear liquids Code(s): K56.2 - VOLVULUS (4) Stage 4 decubitus ulcer Assessment/Plan: -Vascular on board -reposition q2h -air mattress -Drawsheets and Trendelenburg when repositioning to avoid friction and shear -manage incontinence in timely manner -offloading -pack sacral wound with moist kerlix and apply dressing -no surgical debridement at this time Code(s): L89.94 - PRESSURE ULCER OF UNSPECIFIED SITE, STAGE 4 (5) Abdominal distension Assessment/Plan: -GI and Surgery on board-Improved Code(s): R14.0 - ABDOMINAL DISTENSION (GASEOUS) (6) Anemia Assessment/Plan: -transfuse for Hg <7.0 to avoid fluid overload -Anemia panel show low Fe and TIBC -MVI Code(s): D64.9 - ANEMIA, UNSPECIFIED (7) HTN (hypertension) Assessment/Plan: -monitor BP -low Na diet Code(s): I10 - ESSENTIAL (PRIMARY) HYPERTENSION (8) Neurogenic bladder Assessment/Plan: -Urology on board -Suprapubic catheter replaced on 09/23/19 Code(s): N31.9 - NEUROMUSCULAR DYSFUNCTION OF BLADDER, UNSPECIFIED (9) UTI (urinary tract infection) Assessment/Plan: -ID on board -UC neg -no leukocytosis -afebrile -no antibiotic intervention at present, observe off Code(s): N39.0 - URINARY TRACT INFECTION, SITE NOT SPECIFIED Qualifiers: Hematuria presence: with hematuria
[2019-10-04 09:56] LABS: BASO % 0.4 % (0-2.0); EOS % 10.2 % (0-4.5); HEMATOCRIT 27.5 % (35.4-49); HEMOGLOBIN 8.7 GM/dL (11.7-16.9); LYMPH % 18.6 % (8-40); MCH 26.9 pg (25.7-33.7); MCHC 31.7 g/dl (32.0-35.9); MEAN CELL VOLUME 84.8 fl (80-96); MONO % 7.2 % (3.8-10.2); NEUT % 63.6 % (42.8-82.8); PLATELET COUNT 324 K/MM3 (134-434); RBC 3.24 M/mm3 (4.00-5.60); RDW 15.4 % (11.9-15.9); WHITE BLOOD COUNT 6.3 K/mm3 (4.0-10.0)
[2019-10-04] MEDS: AMINO ACIDS/PROTEIN HYDROLYS 30 ML LIQUID.PKT PO SCH ×2 (10:14→17:30)
[2019-10-04] MEDS: MULTIVITAMINS (DAILY MVI) TABLET (FP) PO SCH (10:15)
[2019-10-04] MEDS: HEPARIN NA (PORCINE) 5,000 UNITS/ML 1ML VIAL SQ SCH ×2 (10:15→21:50)
[2019-10-04] MEDS: DEXTROSE 5%-0.45% SALINE 1,000 ML IV SCH (10:15)
[2019-10-04] MEDS: PANTOPRAZOLE SODIUM 40 MG VIAL IVPUSH SCH (10:15)
--- NOTE | 2019-10-04 10:16 | PN ---
Progress Note (short form) - Note Progress Note: Resting in NAD. Still with some post-op discomfort. No CP or SOB. No acute events overnight. Intake & Output 10/01/19 10/02/19 10/03/19 10/04/19 23:59 23:59 23:59 23:59 Intake Total 1770 2350 2680 900 Output Total 500 2100 1600 1000 Balance 9356 995 9043 -100 Last Vital Signs Temp Pulse Resp BP Pulse Ox 97.9 F 62 18 126/52 L 100 10/04/19 10:13 10/04/19 10:13 10/04/19 10:13 10/04/19 10:13 10/03/19 21:00 Active Medications Amino Acids (Prosource No Carb Liquid Pkt) 30 ml PO BID@0800,1730 [facility] Last Admin: 10/04/19 10:14 Dose: 30 ml Benzocaine/Menthol (Cepacol Lozenge -) 1 each MM PRN PRN PRN Reason: SORE THROAT Last Admin: 10/01/19 18:37 Dose: 1 each Heparin Sodium (Porcine) (Heparin -) 5,000 unit SQ BID [facility] Last Admin: 10/04/19 10:15 Dose: 5,000 unit Dextrose/Sodium Chloride (D5-1/2ns -) 1,000 mls @ 75 mls/hr IV ASDIR [facility] Last Admin: 10/04/19 10:15 Dose: Not Given Lactated Ringer's (Lactated Ringers Solution) 1,000 mls @ 75 mls/hr IV ASDIR [facility] Last Admin: 10/03/19 17:25 Dose: Not Given Ketorolac Tromethamine (Toradol Injection -) 15 mg IVPUSH Q6H PRN PRN Reason: PAIN LEVEL 1 - 3 Stop: 10/05/19 13:06 Last Admin: 10/03/19 16:10 Dose: 15 mg Multivitamins/Minerals/Vitamin C (Tab-A-Vit -) 1 tab PO DAILY [facility] Last Admin: 10/04/19 10:15 Dose: 1 tab Ondansetron HCl (Zofran Injection) 4 mg IVPUSH Q6H PRN PRN Reason: NAUSEA AND/OR VOMITING Pantoprazole Sodium (Protonix Iv) 40 mg IVPUSH DAILY [facility] Last Admin: 10/04/19 10:15 Dose: 40 mg Constitutional: Yes: NAD Eyes: Yes: Conjunctiva Clear, EOM Intact HENT: Yes: Atraumatic, Normocephalic Neck: Yes: Supple, Trachea Midline Cardiovascular: Yes: Regular Rate and Rhythm Respiratory: Yes: Diminished (decreased breath sounds at the bases) Gastrointestinal: soft, non-distended, mild abd tenderness. dressing intact. Ostomy appears viable and with stool/air. Edema: No Neurological: Yes: Alert Labs: Laboratory Results - last 24 hr 10/03/19 10/03/19 10/03/19 12:15 17:20 21:54 WBC RBC Hgb Hct MCV MCH MCHC RDW Plt Count MPV Absolute Neuts (auto) Neutrophils % Lymphocytes % Monocytes % Eosinophils % Basophils % Nucleated RBC % POC Glucometer 102 109 112 10/04/19 10/04/19 05:42 09:38 WBC 6.3 RBC 3.24 L Hgb 8.7 L Hct 27.5 L MCV 84.8 MCH 26.9 MCHC 31.7 L RDW 15.4 Plt Count 324 MPV 6.0 L Absolute Neuts (auto) 4.0 Neutrophils % 63.6 D Lymphocytes % 18.6 D Monocytes % 7.2 Eosinophils % 10.2 H D Basophils % 0.4 Nucleated RBC % 0 POC Glucometer 106 Assessment/Plan POD #3: Sigmoid colon resection and colostomy due to redundant patulous sigmoid colon Recurrent Volvulus Quadriplegia HTN DM h/o IVC filter Pain control Incentive Spirometry O2 as needed VTE prophylaxis PO per surgery Dr Birmingham
[2019-10-04 10:37] LABS: ALBUMIN 1.2 g/dl (3.4-5.0); ANION GAP 6 MMOL/L (8-16); BILIRUBIN,TOTAL 0.2 mg/dL (0.2-1); BLOOD UREA NITROGEN 14.4 mg/dL (7-18); CALCIUM 7.6 mg/dL (8.5-10.1); CHLORIDE 119 mmol/L (98-107); CO2 21 mmol/L (21-32); CREATININE 1.1 mg/dL (0.55-1.3); GLUCOSE,RANDOM 118 mg/dL (74-106); POTASSIUM 3.7 mmol/L (3.5-5.1); SGOT/AST 8 U/L (15-37); SGPT/ALT < 6 U/L (13-61); SODIUM 146 mmol/L (136-145); TOT PROT 4.5 g/dl (6.4-8.2)
--- NOTE | 2019-10-04 11:00 | DS ---
Physical Examination Vital Signs: Vital Signs Temperature 97.9 F 10/04/19 10:13 Pulse Rate 62 10/04/19 10:13 Respiratory Rate 18 10/04/19 10:13 Blood Pressure 126/52 L 10/04/19 10:13 O2 Sat by Pulse Oximetry (%) 100 10/04/19 09:00 Labs: CBC, BMP 10/04/19 09:38 10/04/19 09:38 Discharge Summary Problems reviewed: Yes Reason For Visit: PRESSURE INJURY OF SKIN OF SACRAL REGION Current Active Problems Abdominal pain (Acute) Functional quadriplegia (Acute) Ileus, unspecified (Acute) Proctitis (Acute) Sigmoid volvulus (Acute) Stage 4 decubitus ulcer (Acute) Suprapubic catheter (Acute) Suprapubic pain (Acute) Condition: Stable - Instructions Disposition: LONGTERM FACILITY - Home Medications Comprehensive Discharge Medication List: Ambulatory Orders Gabapentin 100 mg PO PRN PRN 06/06/19 Omeprazole 20 mg PO DAILY 06/06/19 Acetaminophen [Tylenol .Regular Strength -] 650 mg PO Q6H PRN tablet 06/21/19 Heparin - 5,000 unit SQ TID vial 06/21/19 Aa/Hydrolyzed Collagen, Whey [Lps 15-30 Liquid] 30 ml PO BID 08/31/19 Ascorbic Acid [Vitamin C] 500 mg PO DAILY 08/31/19 Calcium (Oyster Shell) [Os-Luis 500MG -] 500 mg PO DAILY 08/31/19 Miconazole Nitrate [Secura Antifungal] 92 gm TP BID 08/31/19 Multivitamin [Multiple Vitamins] 1 each PO DAILY 08/31/19 Nystatin Powder [Nystop Powder -] 15 gm TP BID 08/31/19 Travoprost [Travatan Z] 5 ml OP HS 08/31/19 Zinc Oxide 20% Topical Oint 454 gm TP TID 08/31/19 Ferrous Sulfate 325 mg PO DAILY 09/22/19 Amino Acids/Protein Hydrolys [Prosource No Carb Liquid Pkt] 30 ml PO BID@0800, 1730 packet 10/04/19
[2019-10-04 11:21] LABS: ALK PHOS 62 U/L (45-117)
--- NOTE | 2019-10-04 11:23 | PN ---
Progress Note (short form) - Note Progress Note: POD#4, s/p sigmoid colon resection and colostomy Pt seen and examined. Reports he is feeling well today. Tolerating diet. Requesting gas medication reports colostomy is putting out a lot of gas. Denies cp/sob, n/v/d. Vital Signs Temp 97.9 F 10/04/19 10:13 Pulse 62 10/04/19 10:13 Resp 18 10/04/19 10:13 BP 126/52 L 10/04/19 10:13 Pulse Ox 100 10/04/19 09:00 Intake & Output 10/03/19 10/03/19 10/04/19 11:59 23:59 11:59 Intake Total 1330 1350 900 Output Total 550 1050 1000 Balance 780 300 -100 Intake: IV 900 600 900 D5-1/2Ns - 1,000 ml @ 75 900 900 mls/hr IV [facility]IR [facility] Rx#: [id number] Lactated Ringers Solution 600 1,000 ml @ 75 mls/hr IV ASDIR [facility] Rx#:[id number] Oral 430 750 Output: Urine 186 807 8548 Rowe 667 935 2027 Colostomy 200 100 Other: Voiding Method External Catheter Indwelling Catheter Indwelling Catheter Bowel Movement Yes Yes CBC, BMP 10/04/19 09:38 10/04/19 09:38 GEN: Alert, NAD ABD: soft, non-distended, mild abd tenderness. Midline inc, dressing changed and wound irrigated with NS at the base. Fascia intact. No drainage or erythema noted. Ostomy viable and with stool/air. A/P: 73 y/o M from [facility] w/ PMHx Quadriplegia, Neurogenic Bladder with a suprapublic catheter (recent cystoscopy with extensive papillary lesion at dome of and right lateral wall bladder s/p fulguration of bleeding), HTN, NIDDM, h/o IVC Filter, intermittent sigmoid volvulus, admitted 12/ with recurrent sigmoid volvulus, POD 4, POD#4, s/p sigmoid colon resection and colostomy Tolerating diet, wound stable and no signs of infection Continue local wound care with wet to dry packing/ostomy care Pain managment as needed Pt being d/perfecto back to [place], should f/u in the office with Dr Quintero within 1 week D/w. Dr. Quintero
[2019-10-04] MEDS: PANTOPRAZOLE 40 MG TABLET PO SCH (12:14)
[2019-10-04] MEDS ORDERED: SIMETHICONE 40 MG/0.6 ML BOTTLE PO PRN (15:22)
--- NOTE | 2019-10-04 16:31 | PATH ---
Surgical Pathology Report Patient Name: MAGNO DE LA TORRE [facility]. Rec. #: [id number] /Age/Gender: 1945 (Age: 73) / M Account: [id number] Location: [address] [place] [address]/[facility] Taken: 09/30/2019 Received: 09/30/2019 Reported: 10/04/2019 Physicians: Chapo Quintero MD Specimen(s) Received COLON Clinical History Sigmoid volvulus Final Diagnosis SIGMOID COLON, RESECTION: SEGMENT OF MARKEDLY DILATED COLON WITH VASCULAR CONGESTION AND MUCOSAL EDEMA. SURGICAL MARGINS ARE VIABLE. Electronically Signed Lani Bailey M.D. Gross Description Received in formalin labeled "sigmoid colon," is a 32 cm in length unoriented portion of bowel with 2 stapled mucosal margins and moderate attached pericolonic adipose tissue. The specimen is markedly dilated at one end. The serosa is ken[place] and smooth. The mucosa is kenney with normal folds at one end and flattened folds at the dilated end. No mucosal masses are identified. Separately received within the same container is an additional 4 cm in length unremarkable portion of bowel with 2 stapled mucosal margins and minimal attached fat. Chip Washer sections are submitted in 8 cassettes as follows: 1-stapled mucosal margin from normal end of bowel; 2-stapled mucosal margin from dilated end of bowel; 3-0-utnzxnsqyfnusc bowel mucosa; 3-5-wmncalpcdybm stapled mucosal margin from separately received short portion of bowel; 8-car sales representative mucosa from separately received short portion of bowel. 10/03/2019 saudi10/03/2019
[2019-10-05 08:11] LABS: BASO % 0.6 % (0-2.0); EOS % 6.9 % (0-4.5); HEMATOCRIT 27.3 % (35.4-49); HEMOGLOBIN 8.8 GM/dL (11.7-16.9); LYMPH % 14.4 % (8-40); MCH 27.2 pg (25.7-33.7); MCHC 32.3 g/dl (32.0-35.9); MEAN CELL VOLUME 84.2 fl (80-96); MEAN PLT VOLUME 5.9 fl (7.5-11.1); MONO % 8.6 % (3.8-10.2); NEUT % 69.5 % (42.8-82.8); PLATELET COUNT 300 K/MM3 (134-434); RBC 3.25 M/mm3 (4.00-5.60); RDW 15.5 % (11.9-15.9); WHITE BLOOD COUNT 7.7 K/mm3 (4.0-10.0)
[2019-10-05 08:19] LABS: ALBUMIN 1.3 g/dl (3.4-5.0); BILIRUBIN,TOTAL 0.2 mg/dL (0.2-1); BLOOD UREA NITROGEN 16.2 mg/dL (7-18); CALCIUM 7.7 mg/dL (8.5-10.1); CREATININE 1.1 mg/dL (0.55-1.3); POTASSIUM 3.8 mmol/L (3.5-5.1); TOT PROT 4.7 g/dl (6.4-8.2)
[2019-10-05] MEDS: AMINO ACIDS/PROTEIN HYDROLYS 30 ML LIQUID.PKT PO SCH ×2 (08:57→17:00)
[2019-10-05] MEDS: MULTIVITAMINS (DAILY MVI) TABLET (FP) PO SCH (09:02)
[2019-10-05] MEDS: PANTOPRAZOLE 40 MG TABLET PO SCH (09:02)
[2019-10-05] MEDS: HEPARIN NA (PORCINE) 5,000 UNITS/ML 1ML VIAL SQ SCH ×2 (09:02→22:35)
--- NOTE | 2019-10-05 10:09 | PN ---
Progress Note, Physician Chief Complaint: Sigmoid volvolus History of Present Illness: Operative Date: 09/30/19 Pre-Operative Diagnosis: sigmoid volvulus Operation: sigmoid colon resection and colostomy Findings: redundant patulous sigmoid colon NAD Awaiting d/c to SNF - Current Medication List Current Medications: Active Medications Amino Acids (Prosource No Carb Liquid Pkt) 30 ml PO BID@0800,1730 [facility] Last Admin: 10/05/19 08:57 Dose: 30 ml Benzocaine/Menthol (Cepacol Lozenge -) 1 each MM PRN PRN PRN Reason: SORE THROAT Last Admin: 10/01/19 18:37 Dose: 1 each Heparin Sodium (Porcine) (Heparin -) 5,000 unit SQ BID [facility] Last Admin: 10/05/19 09:02 Dose: 5,000 unit Multivitamins/Minerals/Vitamin C (Tab-A-Vit -) 1 tab PO DAILY [facility] Last Admin: 10/05/19 09:02 Dose: 1 tab Pantoprazole Sodium (Protonix -) 40 mg PO DAILY [facility] Last Admin: 10/05/19 09:02 Dose: 40 mg Simethicone (Mylicon Liquid -) 40 mg PO QID PRN PRN Reason: GAS Last Admin: 10/04/19 18:37 Dose: 40 syringe - Objective Vital Signs: Vital Signs Temperature 98 F 10/05/19 05:56 Pulse Rate 75 10/05/19 05:56 Respiratory Rate 20 10/05/19 05:56 Blood Pressure 142/56 L 10/05/19 05:56 O2 Sat by Pulse Oximetry (%) 100 10/04/19 21:00 Constitutional: Yes: Well Nourished, No Distress, Calm Cardiovascular: Yes: Regular Rate and Rhythm Respiratory: Yes: Regular Gastrointestinal: Yes: Normal Bowel Sounds, Other (LLQ colostomy) Genitourinary: Yes: Other (suprapubic catheter) Musculoskeletal: Yes: WNL Extremities: Yes: WNL Edema: No Peripheral Pulses WNL: Yes Neurological: Yes: Alert, Oriented Psychiatric: Yes: Alert, Oriented Labs: CBC, BMP 10/05/19 07:35 10/05/19 07:35 INR, PTT INR 1.18 (0.83-1.09) H 09/29/19 09:37 Assessment/Plan (1) Abdominal pain Assessment/Plan: -GI and Surgery on board -CTAP shows moderate gasseous distention of a tortuous sigmoid colon, possibility of intermittent volvulus should be considered, inflammatory changes about the distal sigmoid and rectum suspicious for proctitis, suprapubic cystostomy tube with thickened urinary bladder, cystitis cannot be excluded cholelithiasis with no evidence of acute cholecystitis -pain control -Has chronic suprapubic pain Code(s): R10.9 - UNSPECIFIED ABDOMINAL PAIN Qualifiers: Abdominal location: generalized Qualified Code(s): R10.84 - Generalized abdominal pain (2) Functional quadriplegia Assessment/Plan: -PT -Fall risk precaution Code(s): R53.2 - FUNCTIONAL QUADRIPLEGIA (3) Sigmoid volvulus Assessment/Plan: -GI and Surgery on board -S/P sigmoid colectomy with end colostomy 09/30/19 -Incentive spirometer -pain control -Tolerating PO intake Code(s): K56.2 - VOLVULUS (4) Stage 4 decubitus ulcer Assessment/Plan: -Vascular on board -reposition q2h -air mattress -Drawsheets and Trendelenburg when repositioning to avoid friction and shear -manage incontinence in timely manner -offloading -pack sacral wound with moist kerlix and apply dressing -no surgical debridement at this time Code(s): L89.94 - PRESSURE ULCER OF UNSPECIFIED SITE, STAGE 4 (5) Abdominal distension Assessment/Plan: -GI and Surgery on board Code(s): R14.0 - ABDOMINAL DISTENSION (GASEOUS) (6) Anemia Assessment/Plan: -transfuse for Hg <7.0 to avoid fluid overload -Anemia panel show low Fe and TIBC -MVI Code(s): D64.9 - ANEMIA, UNSPECIFIED (7) HTN (hypertension) Assessment/Plan: -monitor BP -low Na diet Code(s): I10 - ESSENTIAL (PRIMARY) HYPERTENSION (8) Neurogenic bladder Assessment/Plan: -Urology on board -Suprapubic catheter replaced on 09/23/19 Code(s): N31.9 - NEUROMUSCULAR DYSFUNCTION OF BLADDER, UNSPECIFIED (9) UTI (urinary tract infection) Assessment/Plan: -ID on board -UC neg -no leukocytosis -afebrile -no antibiotic intervention at present, observe off Code(s): N39.0 - URINARY TRACT INFECTION, SITE NOT SPECIFIED Qualifiers: Hematuria presence: with hematuria Assessment/Plan see problem list dvt ppx
--- NOTE | 2019-10-05 10:13 | PN ---
Progress Note (short form) - Note Progress Note: Resting in NAD. No CP or SOB. No acute events overnight. Intake & Output 10/02/19 10/03/19 10/04/19 10/05/19 23:59 23:59 23:59 23:59 Intake Total 2350 2680 2175 Output Total 2100 1600 2750 500 Balance 250 9177 -599 -357 Last Vital Signs Temp Pulse Resp BP Pulse Ox 98 F 75 20 142/56 L 100 10/05/19 05:56 10/05/19 05:56 10/05/19 05:56 10/05/19 05:56 10/04/19 21:00 Active Medications Amino Acids (Prosource No Carb Liquid Pkt) 30 ml PO BID@0800,1730 [facility] Last Admin: 10/05/19 08:57 Dose: 30 ml Benzocaine/Menthol (Cepacol Lozenge -) 1 each MM PRN PRN PRN Reason: SORE THROAT Last Admin: 10/01/19 18:37 Dose: 1 each Heparin Sodium (Porcine) (Heparin -) 5,000 unit SQ BID [facility] Last Admin: 10/05/19 09:02 Dose: 5,000 unit Multivitamins/Minerals/Vitamin C (Tab-A-Vit -) 1 tab PO DAILY [facility] Last Admin: 10/05/19 09:02 Dose: 1 tab Pantoprazole Sodium (Protonix -) 40 mg PO DAILY [facility] Last Admin: 10/05/19 09:02 Dose: 40 mg Simethicone (Mylicon Liquid -) 40 mg PO QID PRN PRN Reason: GAS Last Admin: 10/04/19 18:37 Dose: 40 syringe Constitutional: Yes: NAD Eyes: Yes: Conjunctiva Clear, EOM Intact HENT: Yes: Atraumatic, Normocephalic Neck: Yes: Supple, Trachea Midline Cardiovascular: Yes: Regular Rate and Rhythm Respiratory: Yes: Diminished (decreased breath sounds at the bases) Gastrointestinal: soft, non-distended, mild abd tenderness. dressing intact. Ostomy appears viable and with stool/air. Edema: No Neurological: Yes: Alert Labs: Laboratory Results - last 24 hr 10/04/19 10/04/19 10/04/19 09:38 11:43 17:36 WBC RBC Hgb Hct MCV MCH MCHC RDW Plt Count MPV Absolute Neuts (auto) Neutrophils % Lymphocytes % Monocytes % Eosinophils % Basophils % Nucleated RBC % Sodium 146 H Potassium 3.7 Chloride 119 H Carbon Dioxide 21 Anion Gap 6 L BUN 14.4 Creatinine 1.1 Est GFR (CKD-EPI)AfAm 75.71 Est GFR (CKD-EPI)NonAf 65.32 POC Glucometer 132 140 Random Glucose 118 H Calcium 7.6 L Total Bilirubin 0.2 AST 8 L ALT < 6 L Alkaline Phosphatase 62 Total Protein 4.5 L Albumin 1.2 L 10/05/19 10/05/19 10/05/19 06:19 07:35 07:35 WBC 7.7 RBC 3.25 L Hgb 8.8 L Hct 27.3 L MCV 84.2 MCH 27.2 MCHC 32.3 RDW 15.5 Plt Count 300 MPV 5.9 L Absolute Neuts (auto) 5.4 Neutrophils % 69.5 Lymphocytes % 14.4 D Monocytes % 8.6 Eosinophils % 6.9 H Basophils % 0.6 Nucleated RBC % 0 Sodium 146 H Potassium 3.8 Chloride 118 H Carbon Dioxide 23 Anion Gap 5 L BUN 16.2 Creatinine 1.1 Est GFR (CKD-EPI)AfAm 75.71 Est GFR (CKD-EPI)NonAf 65.32 POC Glucometer 101 Random Glucose 103 Calcium 7.7 L Total Bilirubin 0.2 AST 8 L ALT 6 L Alkaline Phosphatase 62 Total Protein 4.7 L Albumin 1.3 L Assessment/Plan POD #5: Sigmoid colon resection and colostomy due to redundant patulous sigmoid colon Recurrent Volvulus Quadriplegia HTN DM h/o IVC filter Pain control Incentive Spirometry O2 as needed VTE prophylaxis PO as tolerated DC planning Dr [place]
[2019-10-05] MEDS: ACETAMINOPHEN 325 MG TABLET (FP) PO PRN (12:35)
[2019-10-05] MEDS: SIMETHICONE 80 MG TAB.CHEW (FP) PO PRN ×2 (12:35→20:15)
[2019-10-05] MEDS ORDERED: ONDANSETRON 4 MG/2 ML VIAL IVPUSH ONE (21:02)
[2019-10-06] MEDS: ACETAMINOPHEN 325 MG TABLET (FP) PO PRN (00:25)
[2019-10-06] MEDS: AMINO ACIDS/PROTEIN HYDROLYS 30 ML LIQUID.PKT PO SCH ×2 (08:48→16:36)
--- NOTE | 2019-10-06 08:59 | PN ---
Progress Note (short form) - Note Progress Note: SURGERY 73yo M s/p sigmoid resection and colostomy. According to nursing pt has been having n/v since last night. Pt states he feels very nauseous and had abd pain. Pt denies fever, chills. Pt still producing stool in colostomy. Last Vital Signs Temp Pulse Resp BP Pulse Ox 98.2 F 75 15 130/80 98 10/06/19 07:39 10/06/19 07:39 10/06/19 07:39 10/06/19 07:39 10/05/19 21:00 CBC, BMP 10/05/19 07:35 10/05/19 07:35 PE: Gen: A&O X3 Resp: breathing comfortably Abd: soft, moderately distended, moderately diffusely tender. Stool in colostomy bag with herniation of ostomy noted. Problem List - Problems (1) Sigmoid volvulus Assessment/Plan: Plan -concern pt has ileus vs sbo, will make NPO and order abd x-ray, will consider NGT placement if vomiting continues. -serial abd exams -pain control -dvt ppx Case discussed with Dr. Quintero who agrees with plan Code(s): K56.2 - VOLVULUS
--- NOTE | 2019-10-06 09:35 | PN ---
Progress Note, Physician History of Present Illness: Patient with N/V since last night abd pain this am - Current Medication List Current Medications: Active Medications Acetaminophen (Tylenol -) 650 mg PO Q4H PRN PRN Reason: PAIN Last Admin: 10/06/19 00:25 Dose: 650 mg Amino Acids (Prosource No Carb Liquid Pkt) 30 ml PO BID@0800,1730 [facility] Last Admin: 10/06/19 08:48 Dose: Not Given Benzocaine/Menthol (Cepacol Lozenge -) 1 each MM PRN PRN PRN Reason: SORE THROAT Last Admin: 10/01/19 18:37 Dose: 1 each Heparin Sodium (Porcine) (Heparin -) 5,000 unit SQ BID [facility] Last Admin: 10/05/19 22:35 Dose: 5,000 unit Multivitamins/Minerals/Vitamin C (Tab-A-Vit -) 1 tab PO DAILY [facility] Last Admin: 10/05/19 09:02 Dose: 1 tab Pantoprazole Sodium (Protonix -) 40 mg PO DAILY [facility] Last Admin: 10/05/19 09:02 Dose: 40 mg Simethicone (Mylicon -) 80 mg PO QID PRN PRN Reason: DYSPEPSIA Last Admin: 10/05/19 20:15 Dose: 80 mg - Objective Vital Signs: Vital Signs Temperature 98.2 F 10/06/19 07:39 Pulse Rate 75 10/06/19 07:39 Respiratory Rate 15 10/06/19 07:39 Blood Pressure 130/80 10/06/19 07:39 O2 Sat by Pulse Oximetry (%) 98 10/05/19 21:00 Cardiovascular: Yes: Regular Rate and Rhythm Respiratory: Yes: Regular, CTA Bilaterally Gastrointestinal: Yes: Distention, Tenderness Labs: CBC, BMP 10/05/19 07:35 10/05/19 07:35 INR, PTT INR 1.18 (0.83-1.09) H 09/29/19 09:37 Problem List - Problems (1) Abdominal distension Code(s): R14.0 - ABDOMINAL DISTENSION (GASEOUS) (2) Functional quadriplegia Code(s): R53.2 - FUNCTIONAL QUADRIPLEGIA (3) Stage 4 decubitus ulcer Code(s): L89.94 - PRESSURE ULCER OF UNSPECIFIED SITE, STAGE 4 (4) HTN (hypertension) Code(s): I10 - ESSENTIAL (PRIMARY) HYPERTENSION (5) Suprapubic catheter Code(s): Z93.59 - OTHER CYSTOSTOMY STATUS Assessment/Plan (1) Abdominal pain Assessment/Plan: -Recurrent--postop---r/o ILeus vs SBO -abd xray-Labs NPO-surgical follow up -GI and Surgery on board -CTAP shows moderate gasseous distention of a tortuous sigmoid colon, possibility of intermittent volvulus should be considered, inflammatory changes about the distal sigmoid and rectum suspicious for proctitis, suprapubic cystostomy tube with thickened urinary bladder, cystitis cannot be excluded cholelithiasis with no evidence of acute cholecystitis -pain control -Has chronic suprapubic pain Code(s): R10.9 - UNSPECIFIED ABDOMINAL PAIN Qualifiers: Abdominal location: generalized Qualified Code(s): R10.84 - Generalized abdominal pain (2) Functional quadriplegia Assessment/Plan: -PT -Fall risk precaution Code(s): R53.2 - FUNCTIONAL QUADRIPLEGIA (3) Sigmoid volvulus Assessment/Plan: -Surgery Follow up -POD# 5 sigmoid colectomy with end colostomy 12/ -Incentive spirometer -pain control -Start clear liquids Code(s): K56.2 - VOLVULUS (4) Stage 4 decubitus ulcer Assessment/Plan: -Vascular on board -reposition q2h -air mattress -Drawsheets and Trendelenburg when repositioning to avoid friction and shear -manage incontinence in timely manner -offloading -pack sacral wound with moist kerlix and apply dressing -no surgical debridement at this time Code(s): L89.94 - PRESSURE ULCER OF UNSPECIFIED SITE, STAGE 4 (5) Abdominal distension Assessment/Plan: -GI and Surgery on board-Improved Code(s): R14.0 - ABDOMINAL DISTENSION (GASEOUS) (6) Anemia Assessment/Plan: -transfuse for Hg <7.0 to avoid fluid overload -Anemia panel show low Fe and TIBC -MVI Code(s): D64.9 - ANEMIA, UNSPECIFIED (7) HTN (hypertension) Assessment/Plan: -monitor BP -low Na diet Code(s): I10 - ESSENTIAL (PRIMARY) HYPERTENSION (8) Neurogenic bladder Assessment/Plan: -Urology on board -Suprapubic catheter replaced on 09/23/19 Code(s): N31.9 - NEUROMUSCULAR DYSFUNCTION OF BLADDER, UNSPECIFIED (9) UTI (urinary tract infection) Assessment/Plan: -ID on board -UC neg -no leukocytosis -afebrile -no antibiotic intervention at present, observe off Code(s): N39.0 - URINARY TRACT INFECTION, SITE NOT SPECIFIED Qualifiers: Hematuria presence: with hematuria
[2019-10-06] MEDS: MULTIVITAMINS (DAILY MVI) TABLET (FP) PO SCH (10:01)
[2019-10-06] MEDS: PANTOPRAZOLE 40 MG TABLET PO SCH (10:01)
[2019-10-06] MEDS: HEPARIN NA (PORCINE) 5,000 UNITS/ML 1ML VIAL SQ SCH ×2 (11:23→21:33)
[2019-10-06] MEDS: D5-1/2NS+20 MEQ KCL - 20 MEQ/1,000 ML INFUS.BAG IV SCH ×2 (11:23→22:25)
--- NOTE | 2019-10-06 11:30 | PN ---
Progress Note (short form) - Note Progress Note: Attending Surgeon POD# 6 Patient developed vomting and was not tolerating PO VSS AF abdo-distended and tympanitic; incision c/d/i/; ostomy viable and w/stool and gas present in the bag; o/w negative. AXR-reviewed IMP: post ileus vs SBO PLAN: NPO; NGT placed; IVF; will repeat AXR's tomorrow; no narcotics; check e- lytes; will f/u. Chapo Quintero MD FACS
[2019-10-06 11:37] LABS: BASO % 0.3 % (0-2.0); HEMOGLOBIN 11.3 GM/dL (11.7-16.9); MCH 26.5 pg (25.7-33.7); MCHC 31.5 g/dl (32.0-35.9); MEAN CELL VOLUME 84.3 fl (80-96); MEAN PLT VOLUME 6.3 fl (7.5-11.1); MONO % 3.8 % (3.8-10.2); NEUT % 86.9 % (42.8-82.8); PLATELET COUNT 458 K/MM3 (134-434); RBC 4.27 M/mm3 (4.00-5.60); RDW 15.3 % (11.9-15.9); WHITE BLOOD COUNT 10.4 K/mm3 (4.0-10.0)
[2019-10-06 12:23] LABS: ALBUMIN 1.7 g/dl (3.4-5.0); CALCIUM 8.4 mg/dL (8.5-10.1); CREATININE 1.4 mg/dL (0.55-1.3); TOT PROT 5.6 g/dl (6.4-8.2)
[2019-10-06 12:24] LABS: BILIRUBIN,TOTAL 0.2 mg/dL (0.2-1)
[2019-10-07] MEDS: AMINO ACIDS/PROTEIN HYDROLYS 30 ML LIQUID.PKT PO SCH ×2 (08:10→17:13)
--- NOTE | 2019-10-07 08:11 | PN ---
Progress Note, Physician - Current Medication List Current Medications: Active Medications Acetaminophen (Tylenol -) 650 mg PO Q4H PRN PRN Reason: PAIN Last Admin: 10/06/19 00:25 Dose: 650 mg Amino Acids (Prosource No Carb Liquid Pkt) 30 ml PO BID@0800,1730 [facility] Last Admin: 10/07/19 08:10 Dose: Not Given Benzocaine/Menthol (Cepacol Lozenge -) 1 each MM PRN PRN PRN Reason: SORE THROAT Last Admin: 10/01/19 18:37 Dose: 1 each Heparin Sodium (Porcine) (Heparin -) 5,000 unit SQ BID [facility] Last Admin: 10/06/19 21:33 Dose: 5,000 unit Potassium Chloride/Dextrose/Sod Cl (D5-1/2ns+20 Meq Kcl -) 20 meq in 1,000 mls @ 100 mls/hr IV ASDIR [facility] Last Admin: 10/06/19 22:25 Dose: 100 mls/hr Multivitamins/Minerals/Vitamin C (Tab-A-Vit -) 1 tab PO DAILY [facility] Last Admin: 10/06/19 10:01 Dose: Not Given Pantoprazole Sodium (Protonix -) 40 mg PO DAILY [facility] Last Admin: 10/06/19 10:01 Dose: Not Given Simethicone (Mylicon -) 80 mg PO QID PRN PRN Reason: DYSPEPSIA Last Admin: 10/05/19 20:15 Dose: 80 mg - Objective Vital Signs: Vital Signs Temperature 98.3 F 10/07/19 05:47 Pulse Rate 96 H 10/07/19 05:47 Respiratory Rate 20 10/07/19 05:47 Blood Pressure 150/64 10/07/19 05:47 O2 Sat by Pulse Oximetry (%) 98 10/06/19 21:00 Cardiovascular: Yes: S1, S2 Respiratory: Yes: Regular, CTA Bilaterally Gastrointestinal: Yes: Distention, Hypoactive Bowel Sounds, Tenderness Labs: CBC, BMP 10/06/19 11:18 10/06/19 11:18 INR, PTT INR 1.18 (0.83-1.09) H 09/29/19 09:37 Problem List - Problems (1) Abdominal distension Code(s): R14.0 - ABDOMINAL DISTENSION (GASEOUS) (2) Functional quadriplegia Code(s): R53.2 - FUNCTIONAL QUADRIPLEGIA (3) Stage 4 decubitus ulcer Code(s): L89.94 - PRESSURE ULCER OF UNSPECIFIED SITE, STAGE 4 (4) HTN (hypertension) Code(s): I10 - ESSENTIAL (PRIMARY) HYPERTENSION (5) Suprapubic catheter Code(s): Z93.59 - OTHER CYSTOSTOMY STATUS Assessment/Plan (1) Abdominal pain Assessment/Plan: -Recurrent--postop---r/o ILeus vs SBO -abd xray-Labs NPO-NGT and surgical follow up -GI and Surgery on board -CTAP shows moderate gasseous distention of a tortuous sigmoid colon, possibility of intermittent volvulus should be considered, inflammatory changes about the distal sigmoid and rectum suspicious for proctitis, suprapubic cystostomy tube with thickened urinary bladder, cystitis cannot be excluded cholelithiasis with no evidence of acute cholecystitis -pain control -Has chronic suprapubic pain Code(s): R10.9 - UNSPECIFIED ABDOMINAL PAIN Qualifiers: Abdominal location: generalized Qualified Code(s): R10.84 - Generalized abdominal pain (2) Functional quadriplegia Assessment/Plan: -PT -Fall risk precaution Code(s): R53.2 - FUNCTIONAL QUADRIPLEGIA (3) Sigmoid volvulus Assessment/Plan: -Surgery Follow up noted follow xray -POD# 5 sigmoid colectomy with end colostomy 12 -Incentive spirometer -pain control -Start clear liquids Code(s): K56.2 - VOLVULUS (4) Stage 4 decubitus ulcer Assessment/Plan: -Vascular on board -reposition q2h -air mattress -Drawsheets and Trendelenburg when repositioning to avoid friction and shear -manage incontinence in timely manner -offloading -pack sacral wound with moist kerlix and apply dressing -no surgical debridement at this time Code(s): L89.94 - PRESSURE ULCER OF UNSPECIFIED SITE, STAGE 4 (5) Abdominal distension Assessment/Plan: -GI and Surgery on board-Improved Code(s): R14.0 - ABDOMINAL DISTENSION (GASEOUS) (6) Anemia Assessment/Plan: -transfuse for Hg <7.0 to avoid fluid overload -Anemia panel show low Fe and TIBC -MVI Code(s): D64.9 - ANEMIA, UNSPECIFIED (7) HTN (hypertension) Assessment/Plan: -monitor BP -low Na diet Code(s): I10 - ESSENTIAL (PRIMARY) HYPERTENSION (8) Neurogenic bladder Assessment/Plan: -Urology on board -Suprapubic catheter replaced on 09/23/19 Code(s): N31.9 - NEUROMUSCULAR DYSFUNCTION OF BLADDER, UNSPECIFIED (9) UTI (urinary tract infection) Assessment/Plan: -ID on board -UC neg -no leukocytosis -afebrile -no antibiotic intervention at present, observe off Code(s): N39.0 - URINARY TRACT INFECTION, SITE NOT SPECIFIED Qualifiers: Hematuria presence: with hematuria
[2019-10-07] MEDS: D5-1/2NS+20 MEQ KCL - 20 MEQ/1,000 ML INFUS.BAG IV SCH ×2 (08:41→15:35)
[2019-10-07 09:13] LABS: BASO % 0.6 % (0-2.0); EOS % 1.7 % (0-4.5); HEMATOCRIT 30.5 % (35.4-49); HEMOGLOBIN 9.7 GM/dL (11.7-16.9); MCH 26.5 pg (25.7-33.7); MCHC 31.7 g/dl (32.0-35.9); MEAN CELL VOLUME 83.6 fl (80-96); MEAN PLT VOLUME 6.5 fl (7.5-11.1); MONO % 6.3 % (3.8-10.2); NEUT % 79.4 % (42.8-82.8); PLATELET COUNT 424 K/MM3 (134-434); RBC 3.65 M/mm3 (4.00-5.60); RDW 15.4 % (11.9-15.9)
[2019-10-07] MEDS: HEPARIN NA (PORCINE) 5,000 UNITS/ML 1ML VIAL SQ SCH (09:13)
[2019-10-07] MEDS: MULTIVITAMINS (DAILY MVI) TABLET (FP) PO SCH (09:14)
[2019-10-07] MEDS: PANTOPRAZOLE 40 MG TABLET PO SCH (09:14)
[2019-10-07 09:46] LABS: ALBUMIN 1.6 g/dl (3.4-5.0); ALK PHOS 64 U/L (45-117); ANION GAP 6 MMOL/L (8-16); BILIRUBIN,TOTAL 0.3 mg/dL (0.2-1); BLOOD UREA NITROGEN 22.8 mg/dL (7-18); CALCIUM 8.1 mg/dL (8.5-10.1); CHLORIDE 119 mmol/L (98-107); CO2 22 mmol/L (21-32); CREATININE 1.6 mg/dL (0.55-1.3); GLUCOSE,RANDOM 124 mg/dL (74-106); POTASSIUM 4.2 mmol/L (3.5-5.1); SGOT/AST 8 U/L (15-37); SGPT/ALT < 6 U/L (13-61); SODIUM 146 mmol/L (136-145)
--- NOTE | 2019-10-07 14:15 | PN ---
Progress Note (short form) - Note Progress Note: Attending Surgeon POD#7 No c/o; states he feels better; remains NPO w/NGT VSS AF abdo-soft and slightly tympanitic; ostomy viable and w/gas and watery stool in the bag; incision c/di and granulating. NGT 400 cc overnight labs noted AXR- sbo IMP: post op sbo s/p Hartmans procedure improving clinically PLAN: Continue NPO/IVF/NGT and serial X-rays; I will be away 10/08/19-10/13/19 returning 10/14/19; Dr. Carlos Ariza will cover in my absence. Chapo Quintero MD FACS
--- NOTE | 2019-10-07 14:16 | PN ---
Progress Note (short form) - Note Progress Note: asked to f/u he is s/p surgery for sigmoid volvolus on 09/30 still with ileus/SBO NGT placed yesterday Vital Signs Period Temp Pulse Resp BP Sys/Bradley Pulse Ox Last 24 Hr 97.9 F-98.3 F 78-96 18- 124-150/52-70 98-99 cor-rrr lungs decreased bs at bases abd soft, +colostomy incision open at the bottom- clean +SPT ext no edema sacral ulcer clean CBC, BMP 10/07/19 08:23 10/07/19 08:23 a/p sbo vs ileus postop- f/u with surgery observe off antibiotics Problem List - Problems (1) Abdominal distension Code(s): R14.0 - ABDOMINAL DISTENSION (GASEOUS) (2) Abdominal pain Code(s): R10.9 - UNSPECIFIED ABDOMINAL PAIN Qualifiers: Abdominal location: generalized Qualified Code(s): R10.84 - Generalized abdominal pain (3) Stage 4 decubitus ulcer Code(s): L89.94 - PRESSURE ULCER OF UNSPECIFIED SITE, STAGE 4 (4) Functional quadriplegia Code(s): R53.2 - FUNCTIONAL QUADRIPLEGIA
--- NOTE | 2019-10-07 16:39 | CONSULT ---
Consult - text type - Consultation Consultation Note: Renal consult for MARTINEZ This is a 73 year old Gentleman with history of Quadriplegia, neurogenic bladder with SPC, hypertension, DM who presented with recurrent sigmoid volvolus s/p Hartmans procedure with worsening renal function. Pt seen and examined at the bedside. Awake and alert. continues to have abd discomfort. Is NPO. On NGT wall suction. Making urine. No shrotnes of breath or chest pain. PMhx: as above Allergies: NKDA Family hx: NC Social Hx: No T/A/D ROS: As per HPI, all other pertinent ros negative Home Medications Medication Instructions Recorded Gabapentin 100 mg PO PRN PRN 06/06/19 Omeprazole 20 mg PO DAILY 06/06/19 Acetaminophen [Tylenol .Regular 650 mg PO Q6H PRN tablet 06/21/19 Strength -] Heparin - 5,000 unit SQ TID vial 06/21/19 Aa/Hydrolyzed Collagen, Whey [Lps 30 ml PO BID 08/31/19 15-30 Liquid] Ascorbic Acid [Vitamin C] 500 mg PO DAILY 08/31/19 Calcium (Oyster Shell) [Os-Luis 500 mg PO DAILY 08/31/19 500MG -] Miconazole Nitrate [Secura 92 gm TP BID 08/31/19 Antifungal] Multivitamin [Multiple Vitamins] 1 each PO DAILY 08/31/19 Nystatin Powder [Nystop Powder -] 15 gm TP BID 08/31/19 Travoprost [Travatan Z] 5 ml OP HS 08/31/19 Zinc Oxide 20% Topical Oint 454 gm TP TID 08/31/19 Ferrous Sulfate 325 mg PO DAILY 09/22/19 Amino Acids/Protein Hydrolys 30 ml PO BID@0800,1730 packet 10/04/19 [Prosource No Carb Liquid Pkt] Vital Signs Temperature 98.1 F 10/07/19 10:00 Pulse Rate 78 10/07/19 10:00 Respiratory Rate 20 10/07/19 10:00 Blood Pressure 124/65 10/07/19 10:00 O2 Sat by Pulse Oximetry (%) 99 10/07/19 09:00 Intake & Output 10/04/19 10/05/19 10/06/19 10/07/19 23:59 23:59 23:59 23:59 Intake Total 2175 980 216 8102 Output Total 2750 1800 1900 1600 Balance -575 -1105 -1180 -[address] neck supple, no JVD RRR CTA sot NT/ND, ostomy in place no LE edema, clubbing or cyanosis CBC, BMP 10/07/19 08:23 10/07/19 08:23 Current Medications Acetaminophen (Tylenol -) 650 mg PO Q4H PRN PRN Reason: PAIN Last Admin: 10/06/19 00:25 Dose: 650 mg Amino Acids (Prosource No Carb Liquid Pkt) 30 ml PO BID@0800,1730 [facility] Last Admin: 10/07/19 08:10 Dose: Not Given Benzocaine/Menthol (Cepacol Lozenge -) 1 each MM PRN PRN PRN Reason: SORE THROAT Last Admin: 10/01/19 18:37 Dose: 1 each Heparin Sodium (Porcine) (Heparin -) 5,000 unit SQ BID [facility] Last Admin: 10/07/19 09:13 Dose: 5,000 unit Potassium Chloride/Dextrose/Sod Cl (D5-1/2ns+20 Meq Kcl -) 20 meq in 1,000 mls @ 150 mls/hr IV ASDIR [facility] Last Admin: 10/07/19 15:35 Dose: 150 mls/hr Multivitamins/Minerals/Vitamin C (Tab-A-Vit -) 1 tab PO DAILY [facility] Last Admin: 10/07/19 09:14 Dose: Not Given Pantoprazole Sodium (Protonix -) 40 mg PO DAILY [facility] Last Admin: 10/07/19 09:14 Dose: Not Given Simethicone (Mylicon -) 80 mg PO QID PRN PRN Reason: DYSPEPSIA Last Admin: 10/05/19 20:15 Dose: 80 mg 73 year old Gentleman with history of Quadriplegia, neurogenic bladder with SPC , hypertension, DM who presented with recurrent sigmoid volvolus s/p Hartmans procedure with worsening renal function. 1. Acute kidney injury likely due to hypovolemia 2. Recurrent sigmoid volvolus s/p Hartmans procedure 3. Neurogenic bladder 4. Hypernatremia 5. Anemia Check urine studies for FeNa, FeUrea Give trial of isotonic saline x 24 hours continue SBO management as per surgery avoid NSAIDs for pain control if serum Na ternds > 150 change to hypotonic IVF Trend H/H, no acute need for transfusion Thank you Will follow Arias Eubanks DO
[2019-10-07] MEDS: D5-NS + 20 MEQ KCL - 20 MEQ/1,000 ML INFUS.BAG IV SCH (21:29)
[2019-10-08 07:19] LABS: BASO % 0.4 % (0-2.0); EOS % 6.8 % (0-4.5); HEMATOCRIT 29.2 % (35.4-49); HEMOGLOBIN 9.3 GM/dL (11.7-16.9); LYMPH % 13.7 % (8-40); MCH 27.3 pg (25.7-33.7); MCHC 31.9 g/dl (32.0-35.9); MEAN CELL VOLUME 85.5 fl (80-96); MEAN PLT VOLUME 6.2 fl (7.5-11.1); MONO % 7.9 % (3.8-10.2); NEUT % 71.2 % (42.8-82.8); PLATELET COUNT 366 K/MM3 (134-434); RBC 3.42 M/mm3 (4.00-5.60); RDW 15.3 % (11.9-15.9); WHITE BLOOD COUNT 9.4 K/mm3 (4.0-10.0)
[2019-10-08 07:45] LABS: ALBUMIN 1.5 g/dl (3.4-5.0); ALK PHOS 62 U/L (45-117); ANION GAP 4 MMOL/L (8-16); BILIRUBIN,TOTAL 0.1 mg/dL (0.2-1); BLOOD UREA NITROGEN 17.1 mg/dL (7-18); CHLORIDE 122 mmol/L (98-107); CO2 22 mmol/L (21-32); CREATININE 1.3 mg/dL (0.55-1.3); GLUCOSE,RANDOM 111 mg/dL (74-106); MAGNESIUM 1.8 mg/dL (1.8-2.4); PHOSPHOROUS 2.4 mg/dL (2.5-4.9); POTASSIUM 4.2 mmol/L (3.5-5.1); SGOT/AST 9 U/L (15-37); SGPT/ALT < 6 U/L (13-61); SODIUM 148 mmol/L (136-145); TOT PROT 4.8 g/dl (6.4-8.2)
[2019-10-08] MEDS: AMINO ACIDS/PROTEIN HYDROLYS 30 ML LIQUID.PKT PO SCH ×2 (08:05→16:46)
[2019-10-08] MEDS: D5-NS + 20 MEQ KCL - 20 MEQ/1,000 ML INFUS.BAG IV SCH (08:10)
[2019-10-08] MEDS: PANTOPRAZOLE 40 MG TABLET PO SCH (09:12)
[2019-10-08] MEDS: MULTIVITAMINS (DAILY MVI) TABLET (FP) PO SCH (09:12)
--- NOTE | 2019-10-08 10:59 | PN ---
Progress Note (short form) - Note Progress Note: RENAL Pt awake and alert comfortable but complains of abdominal discomfort Last Vital Signs Temp Pulse Resp BP Pulse Ox 98.0 F 81 20 156/69 99 10/08/19 10:00 10/08/19 10:00 10/08/19 10:00 10/08/19 10:00 10/07/19 20:47 lungs clear cvs s1s2 rr abd soft, has an ostomy bag on ext no edema neuro a+ox3 CBC, BMP 10/08/19 06:40 10/08/19 06:40 Current Medications Generic Name Dose Route Start Last Admin Trade Name Freq PRN Reason Stop Dose Admin Acetaminophen 650 mg 10/05/19 12:08 10/06/19 00:25 Tylenol - PO 650 mg Q4H PRN Administration PAIN Amino Acids 30 ml 10/02/19 17:30 10/08/19 08:05 Prosource No Carb Liquid Pkt PO Not Given BID@0800,1730 L[facility]A Benzocaine/Menthol 1 each 10/01/19 11:02 10/01/19 18:37 Cepacol Lozenge - MM 1 each PRN PRN Administration SORE THROAT Dextrose/Sodium Chloride 20 meq in 1,000 mls @ 100 mls/hr 10/07/19 19:00 08:10 Dextrose 5%-Normal Saline+20 Meq Kcl - IV 100 mls/hr ASDIR LENORA Administration Multivitamins/Minerals/Vitamin C 1 tab 10/01/19 10:00 10/08/19 09:12 Tab-A-Vit - PO Not Given DAILY LENORA Pantoprazole Sodium 40 mg 10/04/19 11:00 10/08/19 09:12 Protonix - PO Not Given DAILY L[facility]ORA Simethicone 80 mg 10/05/19 12:09 10/05/19 20:15 Mylicon - PO 80 mg QID PRN Administration DYSPEPSIA 73 year old Gentleman with history of Quadriplegia, neurogenic bladder with SPC , hypertension, DM who presented with sigmoid volvolus s/p Hartmans procedure with worsening renal function. 1. Acute kidney injury likely due to hypovolemia - improved 2. Recurrent sigmoid volvolus s/p Hartmans procedure 3. Neurogenic bladder- s/p SPT 4. Hypernatremia 5. Anemia would change fluids to d5 1/2 ns with k surgical follow up clinimix avoid nephrotoxins if possible including nsaids and contrast await urine studies MV
--- NOTE | 2019-10-08 12:08 | PN ---
Progress Note, Physician Chief Complaint: Abdominal Pain Sigmoid Volvulus History of Present Illness: Previous notes and events reviewed awake and alert NAD NGT to LCS~200cc brown colored output POD #8 Sigmoid Colectomy with end colostomy - Current Medication List Current Medications: Active Medications Acetaminophen (Tylenol -) 650 mg PO Q4H PRN PRN Reason: PAIN Last Admin: 10/06/19 00:25 Dose: 650 mg Amino Acids (Prosource No Carb Liquid Pkt) 30 ml PO BID@0800,1730 [facility] Last Admin: 10/08/19 08:05 Dose: Not Given Benzocaine/Menthol (Cepacol Lozenge -) 1 each MM PRN PRN PRN Reason: SORE THROAT Last Admin: 10/01/19 18:37 Dose: 1 each Dextrose/Sodium Chloride (Dextrose 5%-Normal Saline+20 Meq Kcl -) 20 meq in 1, 000 mls @ 100 mls/hr IV ASDIR [facility] Last Admin: 10/08/19 08:10 Dose: 100 mls/hr Multivitamins/Minerals/Vitamin C (Tab-A-Vit -) 1 tab PO DAILY [facility] Last Admin: 10/08/19 09:12 Dose: Not Given Pantoprazole Sodium (Protonix -) 40 mg PO DAILY [facility] Last Admin: 10/08/19 09:12 Dose: Not Given Simethicone (Mylicon -) 80 mg PO QID PRN PRN Reason: DYSPEPSIA Last Admin: 10/05/19 20:15 Dose: 80 mg - Objective Vital Signs: Vital Signs Temperature 98.0 F 10/08/19 10:00 Pulse Rate 81 10/08/19 10:00 Respiratory Rate 20 10/08/19 10:00 Blood Pressure 156/69 10/08/19 10:00 O2 Sat by Pulse Oximetry (%) 99 10/07/19 20:47 Constitutional: Yes: No Distress, Calm Eyes: Yes: Conjunctiva Clear HENT: Yes: Atraumatic, Other (NGT R nares) Cardiovascular: Yes: Regular Rate and Rhythm Respiratory: Yes: Regular, Diminished Gastrointestinal: Yes: Normal Bowel Sounds, Soft, Other (Colostomy) Genitourinary: Yes: Other (suprapubic catheter) Musculoskeletal: Yes: Muscle Weakness Extremities: Yes: WNL Edema: No Neurological: Yes: Alert, Pre-Existing Deficit, Weakness Psychiatric: Yes: Alert Labs: CBC, BMP 10/08/19 06:40 10/08/19 06:40 INR, PTT INR 1.18 (0.83-1.09) H 09/29/19 09:37 Microbiology 09/23/19 06:00 Wound Gram Stain - Final 09/23/19 06:00 Wound Wound Culture - Final 09/22/19 21:40 Urine - Urine Rowe Urine Culture - Final NO GROWTH OBTAINED Problem List - Problems (1) Abdominal pain Assessment/Plan: -GI and Surgery on board -CTAP shows moderate gasseous distention of a tortuous sigmoid colon, possibility of intermittent volvulus should be considered, inflammatory changes about the distal sigmoid and rectum suspicious for proctitis, suprapubic cystostomy tube with thickened urinary bladder, cystitis cannot be excluded cholelithiasis with no evidence of acute cholecystitis -Serial Abdominal xrays with lastest from 09/26/19 showing some decompression of sigmoid since 09/24/19 -pain control -Abdominal Xray shows persistent SBO -NGT to LCS -NPO -Serial Abdominal exams Code(s): R10.9 - UNSPECIFIED ABDOMINAL PAIN Qualifiers: Abdominal location: generalized Qualified Code(s): R10.84 - Generalized abdominal pain (2) Functional quadriplegia Assessment/Plan: -PT -Fall risk precaution Code(s): R53.2 - FUNCTIONAL QUADRIPLEGIA (3) Sigmoid volvulus Assessment/Plan: -GI and Surgery on board -CTAP shows moderate gasseous distention of a tortuous sigmoid colon, possibility of intermittent volvulus should be considered, inflammatory changes about the distal sigmoid and rectum suspicious for proctitis, suprapubic cystostomy tube with thickened urinary bladder, cystitis cannot be excluded cholelithiasis with no evidence of acute cholecystitis -Serial Abdominal xrays with lastest from 09/26/19 showing some decompression of sigmoid since 09/24/19 -pain control -Rectal tube in for decompression -POD# 8 sigmoid colectomy with end colostomy -Incentive spirometer -pain control Code(s): K56.2 - VOLVULUS (4) Stage 4 decubitus ulcer Assessment/Plan: -Vascular on board -reposition q2h -air mattress -drawsheets and Trendelenburg when repositioning to avoid friction and shear -manage incontinence in timely manner -offloading -pack sacral wound with moist kerlix and apply dressing -no surgical debridement at this time Code(s): L89.94 - PRESSURE ULCER OF UNSPECIFIED SITE, STAGE 4 (5) Abdominal distension Assessment/Plan: -GI and Surgery on board -CTAP shows moderate gasseous distention of a tortuous sigmoid colon, possibility of intermittent volvulus should be considered, inflammatory changes about the distal sigmoid and rectum suspicious for proctitis, suprapubic cystostomy tube with thickened urinary bladder, cystitis cannot be excluded cholelithiasis with no evidence of acute cholecystitis -Serial Abdominal xrays with lastest from 09/26/19 showing some decompression of sigmoid since 09/24/19 -Abdominal Xray shows persistent SBO -NGT to LCS -NPO -Serial Abdominal exams Code(s): R14.0 - ABDOMINAL DISTENSION (GASEOUS) (6) Anemia Assessment/Plan: -Hg 9.3 -transfuse for Hg <7.0 to avoid fluid overload -Anemia panel show low Fe and TIBC -MVI Code(s): D64.9 - ANEMIA, UNSPECIFIED (7) HTN (hypertension) Assessment/Plan: -monitor BP -low Na diet Code(s): I10 - ESSENTIAL (PRIMARY) HYPERTENSION (8) Neurogenic bladder Assessment/Plan: -Urology on board -recommend suprapubic catheter change prior to discharge Code(s): N31.9 - NEUROMUSCULAR DYSFUNCTION OF BLADDER, UNSPECIFIED (9) UTI (urinary tract infection) Assessment/Plan: -ID on board -UA shows 3+ leuks, 3+ blood, 3+ -UC neg -no leukocytosis -afebrile -no antibiotic intervention at present, observe off Code(s): N39.0 - URINARY TRACT INFECTION, SITE NOT SPECIFIED Qualifiers: Hematuria presence: with hematuria (10) Hypernatremia Assessment/Plan: -Na 148 -Renal on board -monitor Na level daily Code(s): E87.0 - HYPEROSMOLALITY AND HYPERNATREMIA (11) Ileus, unspecified Assessment/Plan: Abdominal Xray shows persistent SBO -NGT to LCS -NPO -Serial Abdominal exams -GI on board Code(s): K56.7 - ILEUS, UNSPECIFIED Assessment/Plan see problem list dvt ppx
[2019-10-08] MEDS ORDERED: POTASSIUM PHOSPHATE 27 MM in DEXTROSE 5%-WATER - 250 ML IVPB ONE (12:29)
--- NOTE | 2019-10-08 12:29 | PN ---
Progress Note (short form) - Note Progress Note: surgery covering for Dr. Quintero. pt feels well. gas and stool in colostomy. ngt 800 saliva with some bile overnight. abd- soft, nt, nd, incison clean, small opening lower incision, sp cath intact Laboratory Tests 10/08/19 10/08/19 06:40 06:40 WBC 9.4 Phosphorus 2.4 L Plan- post op ileus in parapalegic. will remove ngt as ostomy producing and exam benign. start reglan for possible gastric ileus as well. correct phosphorus. keep npo. possible liquids tomorrow. re-insert ngt prn.
[2019-10-08] MEDS: D5-1/2NS+20 MEQ KCL - 20 MEQ/1,000 ML INFUS.BAG IV SCH (12:43)
[2019-10-08] MEDS: METOCLOPRAMIDE HCL INJECTION 10 MG/2 ML VIAL IVPUSH SCH ×2 (12:43→17:59)
[2019-10-08] MEDS ORDERED: POTASSIUM PHOSPHATE 27 MM in DEXTROSE 5%-WATER - 500 ML IVPB ONE (13:20)
[2019-10-08] MEDS ORDERED: PT OWN MED DRAWER 7, Y5N ONE ×2 (14:11→18:53)
--- NOTE | 2019-10-08 15:04 | OP ---
DATE OF OPERATION: 09/30/2019 PREOPERATIVE DIAGNOSIS: Sigmoid volvulus. POSTOPERATIVE DIAGNOSIS: Sigmoid volvulus. PROCEDURE: Sigmoid colon resection and end-colostomy. SURGEON: Chapo Quintero MD QUALITY INSPECTOR: Heriberto Elam PA-C ANESTHESIA: General. OPERATIVE FINDINGS: There was a redundant, patulous, markedly dilated sigmoid colon with evidence of sigmoid volvulus without vascular compromise. The rest of the findings were unremarkable. DESCRIPTION OF PROCEDURE: The patient was placed on the operating table in supine position. After the induction of general anesthesia, the patient's abdomen was prepped with ChloraPrep and draped in sterile fashion. The peritoneal cavity was entered through a midline incision, and the previously noted findings were observed. A distal point of transection of the rectosigmoid was identified and an opening made in the mesentery. An 80-mm SHIV stapling device was fired across the rectosigmoid at that point. Next, a proximal area of sigmoid was identified at the junction of the descending and sigmoid colon and a window made in the mesentery there as well and the colon divided there in a similar fashion with the SHIV-80 stapling device. Next , the mesentery was scored and sequentially divided using the LigaSure device. Once the mesentery was completely divided, the specimen was passed off the operative field and sent for pathological evaluation. Next, an opening in the abdominal wall was made for the colostomy midway between the umbilicus and the left anterosuperior iliac spine. Once opening was made that was 2 fingerbreadths in width, the proximal stapled end of the colon was brought through this opening. Next, hemostasis was checked for and noted to be good, and the peritoneal cavity was copiously irrigated with sterile saline. Hemostasis was again verified and then the omentum brought down and the midline incision closed using continuous No. 1 looped Maxon. The subcutaneous tissue was irrigated, and the skin edges around the umbilicus were approximated with surgical abelino and the remainder of the wound packed with 1/2-inch Iodoform gauze and covered with dry sterile dressings and a sterile towel. Next, the colostomy was matured by excising the SHIV staple line using the electrocautery and Metzenbaum scissors. The colostomy was matured to the skin opening at the 12, 3, 6, and 9 o'clock positions initially, and subsequently in between those positions to fully mature the colostomy to the abdominal wall. A colostomy appliance flange was fashioned and placed on the abdominal wall in the usual fashion, followed by a colostomy bag. More dry sterile dressing was placed on the midline wound and taped in place. The patient was then aroused from general anesthesia and transferred to the postanesthesia care unit in stable condition, awake and alert. ESTIMATED BLOOD LOSS: 75 mL. REPLACEMENTS: Crystalloid. DRAINS: None. SPECIMEN: Portion of sigmoid colon to pathology. I, Chapo Quintero, was physically present in the operating room from the time the patient was placed on the operating table until he was transferred to the postanesthesia care unit in my accompaniment. MD PATO [id number] MTDD
[2019-10-09] MEDS: METOCLOPRAMIDE HCL INJECTION 10 MG/2 ML VIAL IVPUSH SCH ×4 (00:11→18:22)
[2019-10-09 07:27] LABS: HEMATOCRIT 30.2 % (35.4-49); HEMOGLOBIN 9.5 GM/dL (11.7-16.9); MCH 26.7 pg (25.7-33.7); MCHC 31.5 g/dl (32.0-35.9); MEAN CELL VOLUME 84.7 fl (80-96); MEAN PLT VOLUME 6.2 fl (7.5-11.1); PLATELET COUNT 369 K/MM3 (134-434); RBC 3.57 M/mm3 (4.00-5.60); RDW 15.7 % (11.9-15.9); WHITE BLOOD COUNT 10.4 K/mm3 (4.0-10.0)
[2019-10-09 07:59] LABS: ALBUMIN 1.6 g/dl (3.4-5.0); BILIRUBIN,TOTAL 0.2 mg/dL (0.2-1); BLOOD UREA NITROGEN 12.9 mg/dL (7-18); CALCIUM 8.2 mg/dL (8.5-10.1); CREATININE 1.2 mg/dL (0.55-1.3); POTASSIUM 4.7 mmol/L (3.5-5.1); TOT PROT 5.1 g/dl (6.4-8.2)
--- NOTE | 2019-10-09 10:44 | PN ---
Progress Note, Physician Chief Complaint: Abdominal Pain Sigmoid Volvulus History of Present Illness: Previous notes and events reviewed awake and alert NAD NGT to LCS removed by surgery noted with leaking suprapubic catheter - Current Medication List Current Medications: Active Medications Acetaminophen (Tylenol -) 650 mg PO Q4H PRN PRN Reason: PAIN Last Admin: 10/06/19 00:25 Dose: 650 mg Amino Acids (Prosource No Carb Liquid Pkt) 30 ml PO BID@0800,1730 [facility] Last Admin: 10/08/19 16:46 Dose: Not Given Benzocaine/Menthol (Cepacol Lozenge -) 1 each MM PRN PRN PRN Reason: SORE THROAT Last Admin: 10/01/19 18:37 Dose: 1 each Potassium Chloride/Dextrose/Sod Cl (D5-1/2ns+20 Meq Kcl -) 20 meq in 1,000 mls @ 100 mls/hr IV ASDIR [facility] Last Admin: 10/08/19 12:43 Dose: 100 mls/hr Metoclopramide HCl (Reglan Injection -) 10 mg IVPUSH Q6H [facility] Last Admin: 10/09/19 05:31 Dose: 10 mg Multivitamins/Minerals/Vitamin C (Tab-A-Vit -) 1 tab PO DAILY [facility] Last Admin: 10/08/19 09:12 Dose: Not Given Pantoprazole Sodium (Protonix -) 40 mg PO DAILY [facility] Last Admin: 10/08/19 09:12 Dose: Not Given Simethicone (Mylicon -) 80 mg PO QID PRN PRN Reason: DYSPEPSIA Last Admin: 10/05/19 20:15 Dose: 80 mg - Objective Vital Signs: Vital Signs Temperature 98.3 F 10/09/19 05:11 Pulse Rate 84 10/09/19 05:11 Respiratory Rate 18 10/09/19 05:11 Blood Pressure 154/64 10/09/19 05:11 O2 Sat by Pulse Oximetry (%) 96 10/08/19 21:00 Constitutional: Yes: No Distress, Calm Eyes: Yes: Conjunctiva Clear HENT: Yes: Atraumatic Cardiovascular: Yes: Regular Rate and Rhythm Respiratory: Yes: Regular, Diminished, On Nasal O2 Gastrointestinal: Yes: Normal Bowel Sounds, Soft, Tenderness, Other (colostomy) Genitourinary: Yes: Other (suprapubic catheter) Musculoskeletal: Yes: Muscle Weakness Extremities: Yes: WNL Edema: No Neurological: Yes: Alert, Oriented, Pre-Existing Deficit, Weakness Psychiatric: Yes: Alert, Oriented Labs: CBC, BMP 10/09/19 06:50 10/09/19 06:50 INR, PTT INR 1.18 (0.83-1.09) H 09/29/19 09:37 Microbiology 09/23/19 06:00 Wound Gram Stain - Final 09/23/19 06:00 Wound Wound Culture - Final 09/22/19 21:40 Urine - Urine Rowe Urine Culture - Final NO GROWTH OBTAINED Problem List - Problems (1) Abdominal pain Assessment/Plan: -GI and Surgery on board -CTAP shows moderate gasseous distention of a tortuous sigmoid colon, possibility of intermittent volvulus should be considered, inflammatory changes about the distal sigmoid and rectum suspicious for proctitis, suprapubic cystostomy tube with thickened urinary bladder, cystitis cannot be excluded cholelithiasis with no evidence of acute cholecystitis -Serial Abdominal xrays with lastest from 09/26/19 showing some decompression of sigmoid since 09/24/19 -pain control -Abdominal Xray shows persistent SBO -NPO -Serial Abdominal exams Code(s): R10.9 - UNSPECIFIED ABDOMINAL PAIN Qualifiers: Abdominal location: generalized Qualified Code(s): R10.84 - Generalized abdominal pain (2) Functional quadriplegia Assessment/Plan: -PT -Fall risk precaution Code(s): R53.2 - FUNCTIONAL QUADRIPLEGIA (3) Sigmoid volvulus Assessment/Plan: -GI and Surgery on board -CTAP shows moderate gasseous distention of a tortuous sigmoid colon, possibility of intermittent volvulus should be considered, inflammatory changes about the distal sigmoid and rectum suspicious for proctitis, suprapubic cystostomy tube with thickened urinary bladder, cystitis cannot be excluded cholelithiasis with no evidence of acute cholecystitis -Serial Abdominal xrays with lastest from 09/26/19 showing some decompression of sigmoid since 09/24/19 -pain control -Rectal tube in for decompression -POD# 9 sigmoid colectomy with end colostomy -Incentive spirometer -pain control Code(s): K56.2 - VOLVULUS (4) Stage 4 decubitus ulcer Assessment/Plan: -Vascular on board -reposition q2h -air mattress -drawsheets and Trendelenburg when repositioning to avoid friction and shear -manage incontinence in timely manner -offloading -pack sacral wound with moist kerlix and apply dressing -no surgical debridement at this time Code(s): L89.94 - PRESSURE ULCER OF UNSPECIFIED SITE, STAGE 4 (5) Abdominal distension Assessment/Plan: -GI and Surgery on board -CTAP shows moderate gasseous distention of a tortuous sigmoid colon, possibility of intermittent volvulus should be considered, inflammatory changes about the distal sigmoid and rectum suspicious for proctitis, suprapubic cystostomy tube with thickened urinary bladder, cystitis cannot be excluded cholelithiasis with no evidence of acute cholecystitis -Serial Abdominal xrays with lastest from 09/26/19 showing some decompression of sigmoid since 09/24/19 -Abdominal Xray shows persistent SBO -NGT discontinued -NPO -Serial Abdominal exams Code(s): R14.0 - ABDOMINAL DISTENSION (GASEOUS) (6) Anemia Assessment/Plan: -Hg 9.5 -transfuse for Hg <7.0 to avoid fluid overload -Anemia panel show low Fe and TIBC -MVI Code(s): D64.9 - ANEMIA, UNSPECIFIED (7) HTN (hypertension) Assessment/Plan: -monitor BP -low Na diet Code(s): I10 - ESSENTIAL (PRIMARY) HYPERTENSION (8) Neurogenic bladder Assessment/Plan: -Urology on board -recommend suprapubic catheter change prior to discharge Code(s): N31.9 - NEUROMUSCULAR DYSFUNCTION OF BLADDER, UNSPECIFIED (9) UTI (urinary tract infection) Assessment/Plan: -ID on board -UA shows 3+ leuks, 3+ blood, 3+ -UC neg -leukocytosis -afebrile -no antibiotic intervention at present, observe off Code(s): N39.0 - URINARY TRACT INFECTION, SITE NOT SPECIFIED Qualifiers: Hematuria presence: with hematuria (10) Hypernatremia Assessment/Plan: -Na 148 -Renal on board -monitor Na level daily Code(s): E87.0 - HYPEROSMOLALITY AND HYPERNATREMIA (11) Ileus, unspecified Assessment/Plan: -Abdominal Xray shows persistent SBO -NGT removed -pending repeat Abdominal Xray results -NPO -Serial Abdominal exams -GI on board Code(s): K56.7 - ILEUS, UNSPECIFIED Assessment/Plan see problem list dvt ppx
[2019-10-09] MEDS: AMINO ACIDS/PROTEIN HYDROLYS 30 ML LIQUID.PKT PO SCH ×2 (11:36→18:31)
[2019-10-09] MEDS: PANTOPRAZOLE 40 MG TABLET PO SCH ×2 (11:37→20:35)
[2019-10-09] MEDS: MULTIVITAMINS (DAILY MVI) TABLET (FP) PO SCH (11:37)
[2019-10-09] MEDS: D5-1/2NS+20 MEQ KCL - 20 MEQ/1,000 ML INFUS.BAG IV SCH ×2 (12:19→19:00)
--- NOTE | 2019-10-09 13:32 | PN ---
Progress Note (short form) - Note Progress Note: RENAL Pt awake and alert comfortable but complains of abdominal discomfort Last Vital Signs Temp Pulse Resp BP Pulse Ox 98.3 F 84 18 154/64 96 10/09/19 05:11 10/09/19 05:11 10/09/19 05:11 10/09/19 05:11 10/08/19 21:00 lungs clear cvs s1s2 rr abd soft, has an ostomy bag on ext no edema neuro a+ox3 CBC, BMP 10/09/19 06:50 10/09/19 06:50 Current Medications Generic Name Dose Route Start Last Admin Trade Name Freq PRN Reason Stop Dose Admin Acetaminophen 650 mg 10/05/19 12:08 10/06/19 00:25 Tylenol - PO 650 mg Q4H PRN Administration PAIN Amino Acids 30 ml 10/02/19 17:30 10/09/19 11:36 Prosource No Carb Liquid Pkt PO Not Given BID@0800,1730 [facility] Benzocaine/Menthol 1 each 10/01/19 11:02 10/01/19 18:37 Cepacol Lozenge - MM 1 each PRN PRN Administration SORE THROAT Potassium Chloride/Dextrose/Sod Cl 20 meq in 1,000 mls @ 100 mls/hr 10/08/19 12:45 10/09/19 12:19 D5-1/2ns+20 Meq Kcl - IV 100 mls/hr ASDIR LENORA Administration Metoclopramide HCl 10 mg 10/08/19 12:30 10/09/19 05:31 Reglan Injection - IVPUSH 10 mg Q6H [facility]A Administration Multivitamins/Minerals/Vitamin C 1 tab 10/01/19 10:00 10/09/19 11:37 Tab-A-Vit - PO Not Given DAILY [facility]A Pantoprazole Sodium 40 mg 10/04/19 11:00 10/09/19 11:37 Protonix - PO Not Given DAILY LENORA Simethicone 80 mg 10/05/19 12:09 10/05/19 20:15 Mylicon - PO 80 mg QID PRN Administration DYSPEPSIA 73 year old Gentleman with history of Quadriplegia, neurogenic bladder with SPC , hypertension, DM who presented with sigmoid volvolus s/p Hartmans procedure with worsening renal function. 1. Acute kidney injury likely due to hypovolemia - improved 2. Recurrent sigmoid volvolus s/p Hartmans procedure 3. Neurogenic bladder- s/p SPT 4. Hypernatremia 5. Anemia would make no changes on fluids for now surgical follow up clinimix avoid nephrotoxins if possible including nsaids and contrast await urine studies [facility]
--- NOTE | 2019-10-09 16:41 | PN ---
Progress Note (short form) - Note Progress Note: surgery covering for Dr. Quintero. ngt out for 24 hours. still colostomy output. no change in kub. cont npo except meds. replace ngt prn. may try clears tomorrow if shows improvement.
[2019-10-09] MEDS: ACETAMINOPHEN 325 MG TABLET (FP) PO PRN (18:25)
[2019-10-09] MEDS ORDERED: PANTOPRAZOLE 40 MG TABLET PO ONE (20:30)
[2019-10-09] MEDS: SIMETHICONE 80 MG TAB.CHEW (FP) PO PRN (20:35)
[2019-10-10] MEDS: METOCLOPRAMIDE HCL INJECTION 10 MG/2 ML VIAL IVPUSH SCH ×4 (00:30→17:32)
[2019-10-10] MEDS: D5-1/2NS+20 MEQ KCL - 20 MEQ/1,000 ML INFUS.BAG IV SCH ×2 (05:21→15:53)
[2019-10-10] MEDS: AMINO ACIDS/PROTEIN HYDROLYS 30 ML LIQUID.PKT PO SCH ×2 (08:03→16:29)
--- NOTE | 2019-10-10 08:30 | PN ---
Progress Note, Physician - Current Medication List Current Medications: Active Medications Acetaminophen (Tylenol -) 650 mg PO Q4H PRN PRN Reason: PAIN Last Admin: 10/09/19 18:25 Dose: 650 mg Amino Acids (Prosource No Carb Liquid Pkt) 30 ml PO BID@0800,1730 [facility] Last Admin: 10/10/19 08:03 Dose: Not Given Benzocaine/Menthol (Cepacol Lozenge -) 1 each MM PRN PRN PRN Reason: SORE THROAT Last Admin: 10/01/19 18:37 Dose: 1 each Potassium Chloride/Dextrose/Sod Cl (D5-1/2ns+20 Meq Kcl -) 20 meq in 1,000 mls @ 100 mls/hr IV ASDIR [facility] Last Admin: 10/10/19 05:21 Dose: 100 mls/hr Metoclopramide HCl (Reglan Injection -) 10 mg IVPUSH Q6H [facility] Last Admin: 10/10/19 05:51 Dose: 10 mg Multivitamins/Minerals/Vitamin C (Tab-A-Vit -) 1 tab PO DAILY [facility] Last Admin: 10/09/19 11:37 Dose: Not Given Pantoprazole Sodium (Protonix -) 40 mg PO DAILY [facility] Last Admin: 10/09/19 11:37 Dose: Not Given Simethicone (Mylicon -) 80 mg PO QID PRN PRN Reason: DYSPEPSIA Last Admin: 10/09/19 20:35 Dose: 80 mg - Objective Vital Signs: Vital Signs Temperature 97.7 F 10/10/19 07:50 Pulse Rate 83 10/10/19 07:50 Respiratory Rate 16 10/10/19 07:50 Blood Pressure 128/70 10/10/19 07:50 O2 Sat by Pulse Oximetry (%) 98 10/09/19 21:00 Cardiovascular: Yes: Regular Rate and Rhythm Respiratory: Yes: Regular, CTA Bilaterally Gastrointestinal: Yes: Soft, Distention, Hyperactive Bowel Sounds Labs: INR, PTT INR 1.18 (0.83-1.09) H 09/29/19 09:37 Problem List - Problems (1) Abdominal distension Code(s): R14.0 - ABDOMINAL DISTENSION (GASEOUS) (2) Functional quadriplegia Code(s): R53.2 - FUNCTIONAL QUADRIPLEGIA (3) Stage 4 decubitus ulcer Code(s): L89.94 - PRESSURE ULCER OF UNSPECIFIED SITE, STAGE 4 (4) HTN (hypertension) Code(s): I10 - ESSENTIAL (PRIMARY) HYPERTENSION (5) Suprapubic catheter Code(s): Z93.59 - OTHER CYSTOSTOMY STATUS Assessment/Plan - Problems (1) Abdominal pain Assessment/Plan: -GI and Surgery on board -CTAP shows moderate gasseous distention of a tortuous sigmoid colon, possibility of intermittent volvulus should be considered, inflammatory changes about the distal sigmoid and rectum suspicious for proctitis, suprapubic cystostomy tube with thickened urinary bladder, cystitis cannot be excluded cholelithiasis with no evidence of acute cholecystitis -Serial Abdominal xrays with lastest from 09/26/19 showing some decompression of sigmoid since 09/24/19 -pain control -Abdominal Xray shows persistent SBO--ct scan and surgical follow up -NPO -Serial Abdominal exams Code(s): R10.9 - UNSPECIFIED ABDOMINAL PAIN Qualifiers: Abdominal location: generalized Qualified Code(s): R10.84 - Generalized abdominal pain (2) Functional quadriplegia Assessment/Plan: -PT -Fall risk precaution Code(s): R53.2 - FUNCTIONAL QUADRIPLEGIA (3) Sigmoid volvulus Assessment/Plan: -GI and Surgery on board -CTAP shows moderate gasseous distention of a tortuous sigmoid colon, possibility of intermittent volvulus should be considered, inflammatory changes about the distal sigmoid and rectum suspicious for proctitis, suprapubic cystostomy tube with thickened urinary bladder, cystitis cannot be excluded cholelithiasis with no evidence of acute cholecystitis -Serial Abdominal xrays with lastest from 09/26/19 showing some decompression of sigmoid since 09/24/19=ct scan and surgical follow up -pain control -Rectal tube in for decompression -POD# 9 sigmoid colectomy with end colostomy -Incentive spirometer -pain control Code(s): K56.2 - VOLVULUS (4) Stage 4 decubitus ulcer Assessment/Plan: -Vascular on board -reposition q2h -air mattress -drawsheets and Trendelenburg when repositioning to avoid friction and shear -manage incontinence in timely manner -offloading -pack sacral wound with moist kerlix and apply dressing -no surgical debridement at this time Code(s): L89.94 - PRESSURE ULCER OF UNSPECIFIED SITE, STAGE 4 (5) Abdominal distension Assessment/Plan: -GI and Surgery on board -CTAP shows moderate gasseous distention of a tortuous sigmoid colon, possibility of intermittent volvulus should be considered, inflammatory changes about the distal sigmoid and rectum suspicious for proctitis, suprapubic cystostomy tube with thickened urinary bladder, cystitis cannot be excluded cholelithiasis with no evidence of acute cholecystitis -Serial Abdominal xrays with lastest from 09/26/19 showing some decompression of sigmoid since 09/24/19 -Abdominal Xray shows persistent SBO -NGT discontinued-ct scan and surgical follow up -NPO -Serial Abdominal exams Code(s): R14.0 - ABDOMINAL DISTENSION (GASEOUS) (6) Anemia Assessment/Plan: -Hg 9.5 -transfuse for Hg <7.0 to avoid fluid overload -Anemia panel show low Fe and TIBC -MVI Code(s): D64.9 - ANEMIA, UNSPECIFIED (7) HTN (hypertension) Assessment/Plan: -monitor BP -low Na diet Code(s): I10 - ESSENTIAL (PRIMARY) HYPERTENSION (8) Neurogenic bladder Assessment/Plan: -Urology on board -recommend suprapubic catheter change prior to discharge Code(s): N31.9 - NEUROMUSCULAR DYSFUNCTION OF BLADDER, UNSPECIFIED (9) UTI (urinary tract infection) Assessment/Plan: -ID on board -UA shows 3+ leuks, 3+ blood, 3+ -UC neg -leukocytosis -afebrile -no antibiotic intervention at present, observe off Code(s): N39.0 - URINARY TRACT INFECTION, SITE NOT SPECIFIED Qualifiers: Hematuria presence: with hematuria (10) Hypernatremia Assessment/Plan: -Na 148 -Renal on board -monitor Na level daily Code(s): E87.0 - HYPEROSMOLALITY AND HYPERNATREMIA (11) Ileus, unspecified Assessment/Plan: -Abdominal Xray shows persistent SBO--ct scan and surgical follow up -NGT removed -pending repeat Abdominal Xray results -NPO -Serial Abdominal exams -GI on board Code(s): K56.7 - ILEUS, UNSPECIFIED
--- NOTE | 2019-10-10 08:38 | PN ---
Progress Note (short form) - Note Progress Note: POD#10, s/p sigmoid colon resection and colostomy Pt seen and examined. Reports he is feeling nauseous today and having a lot of gas in his colostomy. NPO, NGT removed yesterday. No vomiting. Denies cp/sob, n/ v/d. Vital Signs Temp 97.7 F 10/10/19 07:50 Pulse 83 10/10/19 07:50 Resp 16 10/10/19 07:50 BP 128/70 10/10/19 07:50 Pulse Ox 98 10/09/19 21:00 Intake & Output 10/09/19 10/09/19 10/10/19 11:59 23:59 11:59 Intake Total 1500 1020 1200 Output Total 1500 750 Balance 0 1020 450 Intake: IV 1500 1020 1200 D5-1/2NS+20 MEQ KCL - 20 1000 1000 1200 meq In 1,000 ml @ 100 mls /hr IV ASDIR [facility] Rx#: [id number] saline lock 500 20 Output: Urine 900 550 Rowe 150 Supra Pubic Tube 900 400 Colostomy 600 200 Other: Voiding Method Indwelling Catheter Indwelling Catheter Bowel Movement Yes Yes # Bowel Movements 1 GEN: Alert, NAD ABD: soft, distended, hyperactive bowel sounds. Midline inc, with abelino intact proximally, distally incision with granulation tissue present scant serous drainage. No erythema no purulent drainage. Ostomy viable, mild herniation noted, scant stool/air. A/P: 73 y/o M from [facility] w/ PMHx Quadriplegia, Neurogenic Bladder with a suprapublic catheter (recent cystoscopy with extensive papillary lesion at dome of and right lateral wall bladder s/p fulguration of bleeding), HTN, NIDDM, h/o IVC Filter, intermittent sigmoid volvulus, admitted 12/12 with recurrent sigmoid volvulus, POD 10, s/p sigmoid colon resection and colostomy Distended, c/o nausea, no vomiting -CT scan ordered by primary team as no significant improvement noted. -Will f/u <Yecenia House - Last Filed: 10/10/19 08:41> - Note Progress Note: NGT placed at bedside for contrast. Patient tolerated the procedure and tube placement was confirmed with Auscultation over the stomach. The NGT was placed on low continuous wall suction and @ 40cc of billious fluid was returned into the canister. <Freya Carmichael. - Last Filed: 10/10/19 10:31>
[2019-10-10 08:42] LABS: HEMATOCRIT 30.7 % (35.4-49); HEMOGLOBIN 9.8 GM/dL (11.7-16.9); MCH 26.9 pg (25.7-33.7); MEAN CELL VOLUME 84.2 fl (80-96); MEAN PLT VOLUME 6.5 fl (7.5-11.1); PLATELET COUNT 355 K/MM3 (134-434); RBC 3.64 M/mm3 (4.00-5.60); RDW 15.4 % (11.9-15.9); WHITE BLOOD COUNT 12.4 K/mm3 (4.0-10.0)
[2019-10-10 09:44] LABS: ALBUMIN 1.7 g/dl (3.4-5.0); BILIRUBIN,TOTAL 0.3 mg/dL (0.2-1); CALCIUM 8.2 mg/dL (8.5-10.1); CREATININE 1.2 mg/dL (0.55-1.3); POTASSIUM 4.8 mmol/L (3.5-5.1); TOT PROT 5.6 g/dl (6.4-8.2)
[2019-10-10] MEDS: PANTOPRAZOLE 40 MG TABLET PO SCH (09:48)
[2019-10-10] MEDS: MULTIVITAMINS (DAILY MVI) TABLET (FP) PO SCH (09:49)
[2019-10-10] MEDS: ONDANSETRON 4 MG/2 ML VIAL IVPUSH PRN (09:54)
--- NOTE | 2019-10-10 12:29 | PN ---
Progress Note (short form) - Note Progress Note: surgery pt had nausea this am. ngt replaced. large output. still gas in colostomy afebrile abd- soft, moderate distension Plan- ct with oral contrast to re-eval for sbo vs ileus. would get picc line and start tpn. most likely ileus. cont reglan. even if this is mechanical would not re-explore in the enoc-operative period. no evidence of compromise.
--- NOTE | 2019-10-10 15:16 | PN ---
Progress Note (short form) - Note Progress Note: Renal follow up for MARTINEZ Seen and examined at the bedside awake and alert still has abdominal discomfort on NGT wall suction making urine on IVF Vital Signs Temperature 97.9 F 10/10/19 14:48 Pulse Rate 81 10/10/19 14:48 Respiratory Rate 18 10/10/19 14:48 Blood Pressure 144/57 L 10/10/19 14:48 O2 Sat by Pulse Oximetry (%) 98 10/10/19 09:00 Intake & Output 10/07/19 10/08/19 10/09/19 10/10/19 23:59 23:59 23:59 23:59 Intake Total 3100 2200 2520 1200 Output Total 3100 1800 1500 1050 Balance 0 400 1020 [address] neck supple, no JVD RRR CTA sot NT/ND, ostomy in place no LE edema, clubbing or cyanosis CBC, BMP 10/10/19 08:15 10/10/19 08:15 Current Medications Acetaminophen (Tylenol -) 650 mg PO Q4H PRN PRN Reason: PAIN Last Admin: 10/09/19 18:25 Dose: 650 mg Amino Acids (Prosource No Carb Liquid Pkt) 30 ml PO BID@0800,1730 [facility] Last Admin: 10/10/19 08:03 Dose: Not Given Benzocaine/Menthol (Cepacol Lozenge -) 1 each MM PRN PRN PRN Reason: SORE THROAT Last Admin: 10/01/19 18:37 Dose: 1 each Potassium Chloride/Dextrose/Sod Cl (D5-1/2ns+20 Meq Kcl -) 20 meq in 1,000 mls @ 100 mls/hr IV ASDIR [facility] Last Admin: 10/10/19 05:21 Dose: 100 mls/hr Metoclopramide HCl (Reglan Injection -) 10 mg IVPUSH Q6H [facility] Last Admin: 10/10/19 12:32 Dose: 10 mg Multivitamins/Minerals/Vitamin C (Tab-A-Vit -) 1 tab PO DAILY [facility] Last Admin: 10/10/19 09:49 Dose: Not Given Ondansetron HCl (Zofran Injection) 4 mg IVPUSH Q6H PRN PRN Reason: NAUSEA Last Admin: 10/10/19 09:54 Dose: 4 mg Pantoprazole Sodium (Protonix -) 40 mg PO DAILY [facility] Last Admin: 10/10/19 09:48 Dose: Not Given Simethicone (Mylicon -) 80 mg PO QID PRN PRN Reason: DYSPEPSIA Last Admin: 10/09/19 20:35 Dose: 80 mg 73 year old Gentleman with history of Quadriplegia, neurogenic bladder with SPC , hypertension, DM who presented with recurrent sigmoid volvolus s/p Hartmans procedure with worsening renal function. 1. Acute kidney injury likely due to hypovolemia 2. Recurrent sigmoid volvolus s/p Hartmans procedure 3. Neurogenic bladder 4. Hypernatremia 5. Anemia Renal function improved and stable Serum Na improved as well continue maintenance fluids may require TPN as pt has prolonged period of no oral intake Arias Eubanks DO
--- NOTE | 2019-10-10 20:19 | PN ---
Progress Note (short form) - Note Progress Note: UROLOGY NOTE NB on SPC c/o Leaking around the SPC O/E left colostomy and NG 24 F SPC changed and drain clear urine. Plan: change SPC q 4 weeks
[2019-10-11] MEDS: D5-1/2NS+20 MEQ KCL - 20 MEQ/1,000 ML INFUS.BAG IV SCH (02:44)
[2019-10-11] MEDS: METOCLOPRAMIDE HCL INJECTION 10 MG/2 ML VIAL IVPUSH SCH ×6 (02:45→23:40)
--- NOTE | 2019-10-11 09:21 | PN ---
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 - Current Medication List Current Medications: Active Medications Acetaminophen (Tylenol -) 650 mg PO Q4H PRN PRN Reason: PAIN Last Admin: 10/09/19 18:25 Dose: 650 mg Amino Acids (Prosource No Carb Liquid Pkt) 30 ml PO BID@0800,1730 [facility] Last Admin: 10/10/19 16:29 Dose: Not Given Benzocaine/Menthol (Cepacol Lozenge -) 1 each MM PRN PRN PRN Reason: SORE THROAT Last Admin: 10/01/19 18:37 Dose: 1 each Potassium Chloride/Dextrose/Sod Cl (D5-1/2ns+20 Meq Kcl -) 20 meq in 1,000 mls @ 100 mls/hr IV ASDIR [facility] Last Admin: 10/11/19 02:44 Dose: 100 mls/hr Metoclopramide HCl (Reglan Injection -) 10 mg IVPUSH Q6H [facility] Last Admin: 10/11/19 06:48 Dose: 10 mg Multivitamins/Minerals/Vitamin C (Tab-A-Vit -) 1 tab PO DAILY [facility] Last Admin: 10/10/19 09:49 Dose: Not Given Ondansetron HCl (Zofran Injection) 4 mg IVPUSH Q6H PRN PRN Reason: NAUSEA Last Admin: 10/10/19 09:54 Dose: 4 mg Pantoprazole Sodium (Protonix -) 40 mg PO DAILY [facility] Last Admin: 10/10/19 09:48 Dose: Not Given Simethicone (Mylicon -) 80 mg PO QID PRN PRN Reason: DYSPEPSIA Last Admin: 10/09/19 20:35 Dose: 80 mg - Objective Vital Signs: Vital Signs Temperature 98.5 F 10/11/19 06:00 Pulse Rate 90 10/11/19 06:00 Respiratory Rate 18 10/11/19 06:00 Blood Pressure 150/64 10/11/19 06:00 O2 Sat by Pulse Oximetry (%) 98 10/10/19 21:00 Constitutional: Yes: No Distress, Calm, Cachectic Cardiovascular: Yes: Regular Rate and Rhythm Respiratory: Yes: Regular Gastrointestinal: Yes: Hypoactive Bowel Sounds, Tenderness (diffuse) Genitourinary: Yes: Rowe Present Musculoskeletal: Yes: Muscle Weakness Extremities: Yes: WNL Edema: No Peripheral Pulses WNL: Yes Neurological: Yes: Alert, Oriented Psychiatric: Yes: Alert, Oriented Labs: CBC, BMP 10/10/19 08:15 10/10/19 08:15 INR, PTT INR 1.18 (0.83-1.09) H 09/29/19 09:37 Assessment/Plan (1) Abdominal pain Assessment/Plan: -GI and Surgery on board -CTAP shows moderate gasseous distention of a tortuous sigmoid colon, possibility of intermittent volvulus should be considered, inflammatory changes about the distal sigmoid and rectum suspicious for proctitis, suprapubic cystostomy tube with thickened urinary bladder, cystitis cannot be excluded cholelithiasis with no evidence of acute cholecystitis -pain control -Abdominal Xray shows persistent SBO--ct scan and surgical follow up -NPO -Will start TPN -PICC line ordered Code(s): R10.9 - UNSPECIFIED ABDOMINAL PAIN Qualifiers: Abdominal location: generalized Qualified Code(s): R10.84 - Generalized abdominal pain (2) Functional quadriplegia Assessment/Plan: -PT -Fall risk precaution Code(s): R53.2 - FUNCTIONAL QUADRIPLEGIA (3) Sigmoid volvulus Assessment/Plan: -GI and Surgery on board -Repeat CT abd/pel shows SBO -pain control -Rectal tube in for decompression -S/P sigmoid colectomy with end colostomy -Incentive spirometer -pain control Code(s): K56.2 - VOLVULUS (4) Stage 4 decubitus ulcer Assessment/Plan: -Vascular on board -reposition q2h -air mattress -drawsheets and Trendelenburg when repositioning to avoid friction and shear -manage incontinence in timely manner -offloading -pack sacral wound with moist kerlix and apply dressing -no surgical debridement at this time Code(s): L89.94 - PRESSURE ULCER OF UNSPECIFIED SITE, STAGE 4 (5) Abdominal distension Assessment/Plan: -GI and Surgery on board -Repeat CT abd/pel shows SBO -Serial Abdominal xrays with lastest from 09/26/19 showing some decompression of sigmoid since 09/24/19 -NPO -Serial Abdominal exams Code(s): R14.0 - ABDOMINAL DISTENSION (GASEOUS) (6) Anemia Assessment/Plan: -Hg 9.5 -transfuse for Hg <7.0 to avoid fluid overload -Anemia panel show low Fe and TIBC -MVI Code(s): D64.9 - ANEMIA, UNSPECIFIED (7) HTN (hypertension) Assessment/Plan: -monitor BP -low Na diet Code(s): I10 - ESSENTIAL (PRIMARY) HYPERTENSION (8) Neurogenic bladder Assessment/Plan: -Urology on board -recommend suprapubic catheter change prior to discharge Code(s): N31.9 - NEUROMUSCULAR DYSFUNCTION OF BLADDER, UNSPECIFIED (9) UTI (urinary tract infection) Assessment/Plan: -ID on board -UA shows 3+ leuks, 3+ blood, 3+ -UC neg -leukocytosis -afebrile -no antibiotic intervention at present, observe off Code(s): N39.0 - URINARY TRACT INFECTION, SITE NOT SPECIFIED Qualifiers: Hematuria presence: with hematuria (10) Hypernatremia Assessment/Plan: -Renal on board -monitor Na level daily Code(s): E87.0 - HYPEROSMOLALITY AND HYPERNATREMIA (11) Ileus, unspecified Assessment/Plan: -CT abd/pelvis + SBO -PICC line to start TPN -NGT -NPO -Serial Abdominal exams -GI on board Code(s): K56.7 - ILEUS, UNSPECIFIED
--- NOTE | 2019-10-11 09:46 | PN ---
Progress Note (short form) - Note Progress Note: surgery ngt with 300 in 24 hours. no gas in bag this morning. ct shows mechanical sbo. afebrile abd- soft, minimal distension Plan- clinically ileus but radiographically mechnical sbo. cont ngt. tpn. Now would be a dangerous time to reoperated. cont conservative management for several weeks if necessary.
[2019-10-11] MEDS: AMINO ACIDS/PROTEIN HYDROLYS 30 ML LIQUID.PKT PO SCH ×2 (11:40→17:11)
[2019-10-11] MEDS: MULTIVITAMINS (DAILY MVI) TABLET (FP) PO SCH (11:40)
[2019-10-11] MEDS: PANTOPRAZOLE 40 MG TABLET PO SCH (11:40)
[2019-10-11] MEDS: PANTOPRAZOLE SODIUM 40 MG VIAL IVPUSH SCH (12:19)
--- NOTE | 2019-10-11 15:33 | PN ---
Progress Note (short form) - Note Progress Note: Renal follow up for MARTINEZ Seen and examined at the bedside awake and alert still has abdominal discomfort NGT in place Vital Signs Temperature 98.2 F 10/11/19 14:00 Pulse Rate 79 10/11/19 14:00 Respiratory Rate 18 10/11/19 14:00 Blood Pressure 120/64 10/11/19 14:00 O2 Sat by Pulse Oximetry (%) 98 10/10/19 21:00 Intake & Output 10/08/19 10/09/19 10/10/19 10/11/19 23:59 23:59 23:59 23:59 Intake Total 2200 2520 2200 1300 Output Total 1800 1500 2750 700 Balance 400 1020 -550 [address] neck supple, no JVD RRR CTA sot NT/ND, ostomy in place no LE edema, clubbing or cyanosis CBC, BMP 10/10/19 08:15 10/10/19 08:15 Current Medications Acetaminophen (Ofirmev Injection -) 1,000 mg IVPB Q6H PRN PRN Reason: PAIN Amino Acids (Prosource No Carb Liquid Pkt) 30 ml PO BID@0800,1730 [facility] Last Admin: 10/11/19 11:40 Dose: Not Given Benzocaine/Menthol (Cepacol Lozenge -) 1 each MM PRN PRN PRN Reason: SORE THROAT Last Admin: 10/01/19 18:37 Dose: 1 each Potassium Chloride/Dextrose/Sod Cl (D5-1/2ns+20 Meq Kcl -) 20 meq in 1,000 mls @ 100 mls/hr IV ASDIR [facility] Last Admin: 10/11/19 02:44 Dose: 100 mls/hr Potassium Phosphate 15 mm/Calcium Gluconate 1,000 mg/Magnesium Sulfate 2 gm/ Folic Acid 1 mg/ Multivitamins/Minerals 10 ml/ Sterile Water/Amino Acids/ Dextrose 1,000 mls @ 41.667 mls/hr IVPB DAILY@1600 [facility] Metoclopramide HCl (Reglan Injection -) 10 mg IVPUSH Q6H [facility] Last Admin: 10/11/19 12:19 Dose: 10 mg Ondansetron HCl (Zofran Injection) 4 mg IVPUSH Q6H PRN PRN Reason: NAUSEA Last Admin: 10/10/19 09:54 Dose: 4 mg Pantoprazole Sodium (Protonix Iv) 40 mg IVPUSH DAILY [facility] Last Admin: 10/11/19 12:19 Dose: 40 mg Simethicone (Mylicon -) 80 mg PO QID PRN PRN Reason: DYSPEPSIA Last Admin: 10/09/19 20:35 Dose: 80 mg 73 year old Gentleman with history of Quadriplegia, neurogenic bladder with SPC , hypertension, DM who presented with recurrent sigmoid volvolus s/p Hartmans procedure with worsening renal function. 1. Acute kidney injury likely due to hypovolemia 2. Recurrent sigmoid volvolus s/p Hartmans procedure 3. Neurogenic bladder 4. Hypernatremia 5. Anemia Renal function improved and stable will start TPN today Check Lipid panel in AM Trend electrolytes daily surgical follow up Arias Eubanks DO
[2019-10-11] MEDS ORDERED: MAGNESIUM SULFATE IVPB SCH (16:00)
[2019-10-11] MEDS ORDERED: CALCIUM GLUCONATE IVPB SCH (16:00)
[2019-10-11] MEDS ORDERED: [UNRECOGNIZED DRUG - OTHER] IVPB SCH (16:00)
[2019-10-11] MEDS ORDERED: POTASSIUM PHOSPHATE IVPB SCH (16:00)
[2019-10-12] MEDS: METOCLOPRAMIDE HCL INJECTION 10 MG/2 ML VIAL IVPUSH SCH ×3 (05:47→17:05)
[2019-10-12 09:21] LABS: ALBUMIN 1.6 g/dl (3.4-5.0); BILIRUBIN,TOTAL 0.1 mg/dL (0.2-1); BLOOD UREA NITROGEN 17.8 mg/dL (7-18); CALCIUM 7.9 mg/dL (8.5-10.1); POTASSIUM 4.3 mmol/L (3.5-5.1)
[2019-10-12] MEDS: PANTOPRAZOLE SODIUM 40 MG VIAL IVPUSH SCH (09:26)
[2019-10-12] MEDS: AMINO ACIDS/PROTEIN HYDROLYS 30 ML LIQUID.PKT PO SCH ×2 (09:26→16:41)
--- NOTE | 2019-10-12 10:50 | PN ---
Progress Note, Physician Chief Complaint: EVENTS REVIEWED AWAKE ALERT MOD DISTRESS - Current Medication List Current Medications: Active Medications Acetaminophen (Ofirmev Injection -) 1,000 mg IVPB Q6H PRN PRN Reason: PAIN Amino Acids (Prosource No Carb Liquid Pkt) 30 ml PO BID@0800,1730 [facility] Last Admin: 10/12/19 09:26 Dose: Not Given Benzocaine/Menthol (Cepacol Lozenge -) 1 each MM PRN PRN PRN Reason: SORE THROAT Last Admin: 10/01/19 18:37 Dose: 1 each Potassium Phosphate 15 mm/Calcium Gluconate 1,000 mg/Magnesium Sulfate 2 gm/ Folic Acid 1 mg/ Multivitamins/Minerals 10 ml/ Sterile Water/Amino Acids/ Dextrose 1,000 mls @ 41.667 mls/hr IVPB DAILY@1600 [facility] Last Admin: 10/11/19 15:54 Dose: 41.667 mls/hr Metoclopramide HCl (Reglan Injection -) 10 mg IVPUSH Q6H [facility] Last Admin: 10/12/19 05:47 Dose: 10 mg Ondansetron HCl (Zofran Injection) 4 mg IVPUSH Q6H PRN PRN Reason: NAUSEA Last Admin: 10/10/19 09:54 Dose: 4 mg Pantoprazole Sodium (Protonix Iv) 40 mg IVPUSH DAILY [facility] Last Admin: 10/12/19 09:26 Dose: 40 mg Simethicone (Mylicon -) 80 mg PO QID PRN PRN Reason: DYSPEPSIA Last Admin: 10/09/19 20:35 Dose: 80 mg - Objective Vital Signs: Vital Signs Temperature 98.2 F 10/12/19 06:00 Pulse Rate 86 10/12/19 06:00 Respiratory Rate 20 10/12/19 06:00 Blood Pressure 140/60 10/12/19 06:00 O2 Sat by Pulse Oximetry (%) 98 10/11/19 21:00 Constitutional: Yes: Moderate Distress Cardiovascular: Yes: Regular Rate and Rhythm Respiratory: Yes: On Nasal O2 Gastrointestinal: Yes: Soft, Tenderness Genitourinary: Yes: Incontinence Musculoskeletal: Yes: Muscle Weakness Labs: CBC, BMP 10/10/19 08:15 10/12/19 08:08 INR, PTT INR 1.18 (0.83-1.09) H 09/29/19 09:37 Problem List - Problems (1) Abdominal pain Code(s): R10.9 - UNSPECIFIED ABDOMINAL PAIN Qualifiers: Abdominal location: generalized Qualified Code(s): R10.84 - Generalized abdominal pain (2) Functional quadriplegia Code(s): R53.2 - FUNCTIONAL QUADRIPLEGIA (3) Ileus, unspecified Code(s): K56.7 - ILEUS, UNSPECIFIED Assessment/Plan SURGERY F/U APPRECIATED NGT AND DECOMPRESSION OF ILEUS WITH CONSERVATIVE MANAGEMENT AT THIS TIME. NGT IV CLINIMIC DVT PROPHYLAXIS PAIN CONTROL
--- NOTE | 2019-10-12 11:08 | PN ---
Progress Note (short form) - Note Progress Note: Renal follow up for MARTINEZ Seen and examined at the bedside awake and alert still has abdominal discomfort NGT is still draining a moderate amount on TPN Vital Signs Temperature 98.2 F 10/12/19 06:00 Pulse Rate 86 10/12/19 06:00 Respiratory Rate 20 10/12/19 06:00 Blood Pressure 140/60 10/12/19 06:00 O2 Sat by Pulse Oximetry (%) 98 10/11/19 21:00 Intake & Output 10/09/19 10/10/19 10/11/19 10/12/19 23:59 23:59 23:59 23:59 Intake Total 2520 2200 1740 492 Output Total 1500 2750 1100 1200 Balance 1020 -550 640 -[address] neck supple, no JVD RRR CTA sot NT/ND, ostomy in place no LE edema, clubbing or cyanosis CBC, BMP 10/10/19 08:15 10/12/19 08:08 Current Medications Acetaminophen (Ofirmev Injection -) 1,000 mg IVPB Q6H PRN PRN Reason: PAIN Amino Acids (Prosource No Carb Liquid Pkt) 30 ml PO BID@0800,1730 [facility] Last Admin: 10/12/19 09:26 Dose: Not Given Benzocaine/Menthol (Cepacol Lozenge -) 1 each MM PRN PRN PRN Reason: SORE THROAT Last Admin: 10/01/19 18:37 Dose: 1 each Potassium Phosphate 15 mm/Calcium Gluconate 1,000 mg/Magnesium Sulfate 2 gm/ Folic Acid 1 mg/ Multivitamins/Minerals 10 ml/ Sterile Water/Amino Acids/ Dextrose 1,000 mls @ 41.667 mls/hr IVPB DAILY@1600 [facility] Last Admin: 10/11/19 15:54 Dose: 41.667 mls/hr Metoclopramide HCl (Reglan Injection -) 10 mg IVPUSH Q6H [facility] Last Admin: 10/12/19 05:47 Dose: 10 mg Ondansetron HCl (Zofran Injection) 4 mg IVPUSH Q6H PRN PRN Reason: NAUSEA Last Admin: 10/10/19 09:54 Dose: 4 mg Pantoprazole Sodium (Protonix Iv) 40 mg IVPUSH DAILY [facility] Last Admin: 10/12/19 09:26 Dose: 40 mg Simethicone (Mylicon -) 80 mg PO QID PRN PRN Reason: DYSPEPSIA Last Admin: 10/09/19 20:35 Dose: 80 mg 73 year old Gentleman with history of Quadriplegia, neurogenic bladder with SPC , hypertension, DM who presented with recurrent sigmoid volvolus s/p Hartmans procedure with worsening renal function. 1. Acute kidney injury likely due to hypovolemia 2. Recurrent sigmoid volvolus s/p Hartmans procedure 3. Neurogenic bladder 4. Hypernatremia 5. Anemia 6. Prolonged NPO now requiring TPN Will continue TPN today. Increase total volume to 1.25L and start lipids Trend electrolytes daily. Arias Eubanks DO
[2019-10-12] MEDS: ACETAMINOPHEN 1000 MG/100 ML VIAL (NON FORMULARY) IVPB PRN (12:31)
[2019-10-12 12:35] LABS: MAGNESIUM 1.8 mg/dL (1.8-2.4); PHOSPHOROUS 3.3 mg/dL (2.5-4.9)
[2019-10-12] MEDS ORDERED: [UNRECOGNIZED DRUG - OTHER] IVPB SCH (16:00)
[2019-10-12] MEDS ORDERED: POTASSIUM PHOSPHATE IVPB SCH (16:00)
[2019-10-12] MEDS ORDERED: MAGNESIUM SULFATE IVPB SCH (16:00)
[2019-10-12] MEDS ORDERED: CALCIUM GLUCONATE IVPB SCH (16:00)
--- NOTE | 2019-10-12 16:47 | PN ---
Progress Note (short form) - Note Progress Note: surgery ngt with 800 in 24 hours. there is gas in the colostomy bag today. afebrile abd- soft, nt, minimal distension Plan- clinically ileus but radiographically mechnical sbo. cont ngt. tpn. Now would be a dangerous time to reoperate. cont conservative management for several weeks if necessary.
[2019-10-12] MEDS: FAT EMULSIONS 250 ML IV SCH (21:50)
[2019-10-13] MEDS: METOCLOPRAMIDE HCL INJECTION 10 MG/2 ML VIAL IVPUSH SCH ×4 (00:31→17:37)
[2019-10-13] MEDS: AMINO ACIDS/PROTEIN HYDROLYS 30 ML LIQUID.PKT PO SCH ×2 (08:13→17:25)
[2019-10-13 08:23] LABS: ALBUMIN 1.6 g/dl (3.4-5.0); BILIRUBIN,TOTAL 0.2 mg/dL (0.2-1); BLOOD UREA NITROGEN 34.4 mg/dL (7-18); CALCIUM 8.1 mg/dL (8.5-10.1); MAGNESIUM 2.5 mg/dL (1.8-2.4); PHOSPHOROUS 2.6 mg/dL (2.5-4.9); POTASSIUM 4.3 mmol/L (3.5-5.1); TOT PROT 5.4 g/dl (6.4-8.2)
--- NOTE | 2019-10-13 09:01 | PN ---
Progress Note (short form) - Note Progress Note: POD#13 PT denies an pain in his abdomen. States that the ngt is bothering his nose. Vital Signs Period Temp Pulse Resp BP Sys/Bradley Pulse Ox Last 24 Hr 98 F-98.2 F 82-92 16-20 123-144/60-73 98 NGT-400, no outpt recorded overnight Ostomy outpt-250 suprapubic tube-1600 urine GEN: Alert and follow commands ABD: soft, non-distended, non-tender. Ostomy viable with flatus in the bag. Midline inc c/d/i with abelino to the med abdomen. Inferior aspect healing well , superficial wound approximately 1x1 cm CBC, BMP 10/10/ 08:15 10/13/19 07:20 A/P: 73 yo male s/p sigmoid resection with end colostomy Continue local wound care with wet to dry/ostomy care NGT for decompression, it appears to be decreasing and abd not-distended. Replace the canister to obtain more accurate results. Replete electroyles as needed D/w. Dr. Ariza
[2019-10-13] MEDS: PANTOPRAZOLE SODIUM 40 MG VIAL IVPUSH SCH (10:02)
--- NOTE | 2019-10-13 11:29 | PN ---
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 New mechanical SBO Surgery on board, unable to re-operate Started on TPN NGT for decompression, it appears to be decreasing and abd not-distended. - Current Medication List Current Medications: Active Medications Acetaminophen (Ofirmev Injection -) 1,000 mg IVPB Q6H PRN PRN Reason: PAIN Last Admin: 10/12/19 12:31 Dose: 1,000 mg Amino Acids (Prosource No Carb Liquid Pkt) 30 ml PO BID@0800,1730 [facility] Last Admin: 10/13/19 08:13 Dose: Not Given Benzocaine/Menthol (Cepacol Lozenge -) 1 each MM PRN PRN PRN Reason: SORE THROAT Last Admin: 10/01/19 18:37 Dose: 1 each Potassium Phosphate 15 mm/Calcium Gluconate 1,000 mg/Magnesium Sulfate 2 gm/ Folic Acid 1 mg/ Multivitamins/Minerals 10 ml/ Potassium Acetate 20 meq/ Sterile Water/Amino Acids/ Dextrose 1,250 mls @ 52.083 mls/hr IVPB DAILY@1600 [facility] Last Admin: 10/12/19 17:53 Dose: 52.083 mls/hr Fat Emulsion Intravenous (Intralipid -) 250 mls @ 20.833 mls/hr IV DAILY@2200 [facility] Last Admin: 10/12/19 21:50 Dose: 20.833 mls/hr Metoclopramide HCl (Reglan Injection -) 10 mg IVPUSH Q6H [facility] Last Admin: 10/13/19 06:19 Dose: 10 mg Ondansetron HCl (Zofran Injection) 4 mg IVPUSH Q6H PRN PRN Reason: NAUSEA Last Admin: 10/10/19 09:54 Dose: 4 mg Pantoprazole Sodium (Protonix Iv) 40 mg IVPUSH DAILY [facility] Last Admin: 10/13/19 10:02 Dose: 40 mg Simethicone (Mylicon -) 80 mg PO QID PRN PRN Reason: DYSPEPSIA Last Admin: 10/09/19 20:35 Dose: 80 mg - Objective Vital Signs: Vital Signs Temperature 98.2 F 10/13/19 06:10 Pulse Rate 92 H 10/13/19 06:10 Respiratory Rate 20 10/13/19 06:10 Blood Pressure 137/73 10/13/19 06:10 O2 Sat by Pulse Oximetry (%) 98 10/12/19 21:00 Constitutional: Yes: No Distress, Calm, Cachectic Cardiovascular: Yes: Regular Rate and Rhythm Respiratory: Yes: Regular Gastrointestinal: Yes: Soft, Hypoactive Bowel Sounds, Tenderness (diffuse), Other (NGT+ end colostomy LLQ) Genitourinary: Yes: Rowe Present Musculoskeletal: Yes: Muscle Weakness Extremities: Yes: WNL Edema: No Peripheral Pulses WNL: Yes Neurological: Yes: Alert, Oriented Psychiatric: Yes: Alert, Oriented Labs: CBC, BMP 10/10/19 08:15 10/13/19 07:20 INR, PTT INR 1.18 (0.83-1.09) H 09/29/19 09:37 Assessment/Plan (1) Abdominal pain Assessment/Plan: -GI and Surgery on board -pain control -TPN as per nephrology -10/10/19 CT abd/pel:Status post interval surgery comparison to a CT exam of 09/2019 with visualization of surgical sutures along the rectosigmoid junction region. Interval development of small bowel obstruction is noted as discussed above. Development of a small amount of perihepatic free fluid is seen. Interval development of small right-sided and trace left-sided pleural effusions is noted. The remainder of the exam demonstrates no obvious interval change. Suprapubic cystostomy tube in place. Note is again made of a somewhat thickened appearance of the urinary bladder wall diffusely which may be on the basis of subacute or chronic cystitis. Cholelithiasis. Chronic perirectal soft tissue stranding. Sacral soft tissue ulceration. Note is again made of a truncated appearance of the coccyx which may be on the basis of prior osteomyelitis and/or surgery. -Surgery unable to re-operate at this time due to multiple co-morbidities, will be re-evaluated frequently Code(s): R10.9 - UNSPECIFIED ABDOMINAL PAIN Qualifiers: Abdominal location: generalized Qualified Code(s): R10.84 - Generalized abdominal pain (2) Functional quadriplegia Assessment/Plan: -PT -Fall risk precaution Code(s): R53.2 - FUNCTIONAL QUADRIPLEGIA (3) Sigmoid volvulus Assessment/Plan: -GI and Surgery on board -Repeat CT abd/pel shows SBO -pain control -Rectal tube in for decompression -S/P sigmoid colectomy with end colostomy -Incentive spirometer -pain control Code(s): K56.2 - VOLVULUS (4) Stage 4 decubitus ulcer Assessment/Plan: -Vascular on board -reposition q2h -air mattress -drawsheets and Trendelenburg when repositioning to avoid friction and shear -manage incontinence in timely manner -offloading -pack sacral wound with moist kerlix and apply dressing -no surgical debridement at this time Code(s): L89.94 - PRESSURE ULCER OF UNSPECIFIED SITE, STAGE 4 (5) Abdominal distension Assessment/Plan: -GI and Surgery on board -Repeat CT abd/pel shows SBO -NGT -TPN -NPO -Serial Abdominal exams Code(s): R14.0 - ABDOMINAL DISTENSION (GASEOUS) (6) Anemia Assessment/Plan: -Hg 9.5 -transfuse for Hg <7.0 to avoid fluid overload -Anemia panel show low Fe and TIBC -MVI Code(s): D64.9 - ANEMIA, UNSPECIFIED (7) HTN (hypertension) Assessment/Plan: -monitor BP -low Na diet Code(s): I10 - ESSENTIAL (PRIMARY) HYPERTENSION (8) Neurogenic bladder Assessment/Plan: -Urology on board -recommend suprapubic catheter change prior to discharge Code(s): N31.9 - NEUROMUSCULAR DYSFUNCTION OF BLADDER, UNSPECIFIED (9) UTI (urinary tract infection) Assessment/Plan: -ID on board -UA shows 3+ leuks, 3+ blood, 3+ -UC neg -leukocytosis -afebrile -no antibiotic intervention at present, observe off Code(s): N39.0 - URINARY TRACT INFECTION, SITE NOT SPECIFIED Qualifiers: Hematuria presence: with hematuria (10) Hypernatremia Assessment/Plan: -Renal on board -monitor Na level daily Code(s): E87.0 - HYPEROSMOLALITY AND HYPERNATREMIA (11) Ileus, unspecified Assessment/Plan: -CT abd/pelvis + SBO -Tunnel cath to start TPN -NGT -NPO -GI on board Code(s): K56.7 - ILEUS, UNSPECIFIED
--- NOTE | 2019-10-13 12:57 | PN ---
Progress Note (short form) - Note Progress Note: Renal follow up for MARTINEZ Seen and examined at the bedside awake and alert abdominal discomfort has improved remains on NGT suction making urine on TPN Vital Signs Temperature 98.2 F 10/13/19 06:10 Pulse Rate 88 10/13/19 09:00 Respiratory Rate 18 10/13/19 09:00 Blood Pressure 136/70 10/13/19 09:00 O2 Sat by Pulse Oximetry (%) 98 10/12/19 21:00 Intake & Output 10/10/19 10/11/19 10/12/19 10/13/19 23:59 23:59 23:59 23:59 Intake Total 2200 1740 1142 Output Total 2750 1100 2850 600 Balance -550 640 -1708 -[address] neck supple, no JVD RRR CTA sot NT/ND, ostomy in place no LE edema, clubbing or cyanosis CBC, BMP 10/10/19 08:15 10/13/19 07:20 Current Medications Acetaminophen (Ofirmev Injection -) 1,000 mg IVPB Q6H PRN PRN Reason: PAIN Last Admin: 10/12/19 12:31 Dose: 1,000 mg Amino Acids (Prosource No Carb Liquid Pkt) 30 ml PO BID@0800,1730 [facility] Last Admin: 10/13/19 08:13 Dose: Not Given Benzocaine/Menthol (Cepacol Lozenge -) 1 each MM PRN PRN PRN Reason: SORE THROAT Last Admin: 10/01/19 18:37 Dose: 1 each Potassium Phosphate 15 mm/Calcium Gluconate 1,000 mg/Magnesium Sulfate 2 gm/ Folic Acid 1 mg/ Multivitamins/Minerals 10 ml/ Potassium Acetate 20 meq/ Sterile Water/Amino Acids/ Dextrose 1,250 mls @ 52.083 mls/hr IVPB DAILY@1600 [facility] Last Admin: 10/12/19 17:53 Dose: 52.083 mls/hr Fat Emulsion Intravenous (Intralipid -) 250 mls @ 20.833 mls/hr IV DAILY@2200 [facility] Last Admin: 10/12/19 21:50 Dose: 20.833 mls/hr Metoclopramide HCl (Reglan Injection -) 10 mg IVPUSH Q6H [facility] Last Admin: 10/13/19 06:19 Dose: 10 mg Ondansetron HCl (Zofran Injection) 4 mg IVPUSH Q6H PRN PRN Reason: NAUSEA Last Admin: 10/10/19 09:54 Dose: 4 mg Pantoprazole Sodium (Protonix Iv) 40 mg IVPUSH DAILY [facility] Last Admin: 10/13/19 10:02 Dose: 40 mg Simethicone (Mylicon -) 80 mg PO QID PRN PRN Reason: DYSPEPSIA Last Admin: 10/09/19 20:35 Dose: 80 mg 73 year old Gentleman with history of Quadriplegia, neurogenic bladder with SPC , hypertension, DM who presented with recurrent sigmoid volvolus s/p Hartmans procedure with worsening renal function. 1. Acute kidney injury likely due to hypovolemia 2. Recurrent sigmoid volvolus s/p Hartmans procedure 3. Neurogenic bladder 4. Hypernatremia 5. Anemia 6. Prolonged NPO now requiring TPN Will continue TPN today. Increase total volume to 1.5L and continue lipids requested nutrition evaluation. Arias Eubanks DO
[2019-10-13] MEDS ORDERED: [UNRECOGNIZED DRUG - OTHER] IVPB SCH (16:00)
[2019-10-13] MEDS ORDERED: MAGNESIUM SULFATE IVPB SCH (16:00)
[2019-10-13] MEDS ORDERED: CALCIUM GLUCONATE IVPB SCH (16:00)
[2019-10-13] MEDS ORDERED: POTASSIUM PHOSPHATE IVPB SCH (16:00)
[2019-10-13] MEDS: FAT EMULSIONS 250 ML IV SCH (21:48)
[2019-10-14] MEDS: METOCLOPRAMIDE HCL INJECTION 10 MG/2 ML VIAL IVPUSH SCH ×5 (02:22→23:45)
[2019-10-14 08:06] LABS: BASO % 0.4 % (0-2.0); EOS % 6.6 % (0-4.5); HEMATOCRIT 28.4 % (35.4-49); HEMOGLOBIN 9.3 GM/dL (11.7-16.9); LYMPH % 12.1 % (8-40); MCH 27.6 pg (25.7-33.7); MCHC 32.9 g/dl (32.0-35.9); MEAN PLT VOLUME 6.5 fl (7.5-11.1); MONO % 7.2 % (3.8-10.2); NEUT % 73.7 % (42.8-82.8); PLATELET COUNT 370 K/MM3 (134-434); RBC 3.39 M/mm3 (4.00-5.60); RDW 15.5 % (11.9-15.9)
[2019-10-14 08:30] LABS: ALBUMIN 1.6 g/dl (3.4-5.0); ALK PHOS 89 U/L (45-117); ANION GAP 8 MMOL/L (8-16); BILIRUBIN,TOTAL 0.2 mg/dL (0.2-1); BLOOD UREA NITROGEN 49.1 mg/dL (7-18); CALCIUM 8.4 mg/dL (8.5-10.1); CHLORIDE 114 mmol/L (98-107); CO2 21 mmol/L (21-32); GLUCOSE,RANDOM 113 mg/dL (74-106); MAGNESIUM 2.3 mg/dL (1.8-2.4); PHOSPHOROUS 2.6 mg/dL (2.5-4.9); POTASSIUM 4.4 mmol/L (3.5-5.1); SGOT/AST 10 U/L (15-37); SGPT/ALT 8 U/L (13-61); SODIUM 142 mmol/L (136-145); TOT PROT 5.5 g/dl (6.4-8.2)
--- NOTE | 2019-10-14 08:49 | PN ---
Progress Note, Physician History of Present Illness: sob less abd pain - Current Medication List Current Medications: Active Medications Acetaminophen (Ofirmev Injection -) 1,000 mg IVPB Q6H PRN PRN Reason: PAIN Last Admin: 10/12/19 12:31 Dose: 1,000 mg Amino Acids (Prosource No Carb Liquid Pkt) 30 ml PO BID@0800,1730 [facility] Last Admin: 10/13/19 17:25 Dose: Not Given Benzocaine/Menthol (Cepacol Lozenge -) 1 each MM PRN PRN PRN Reason: SORE THROAT Last Admin: 10/01/19 18:37 Dose: 1 each Heparin Sodium (Porcine) (Heparin -) 5,000 unit SQ TID [facility] Fat Emulsion Intravenous (Intralipid -) 250 mls @ 20.833 mls/hr IV DAILY@2200 [facility] Last Admin: 10/13/19 21:48 Dose: 20.833 mls/hr Potassium Phosphate 15 mm/Calcium Gluconate 1,000 mg/Magnesium Sulfate 1 gm/ Folic Acid 1 mg/ Multivitamins/Minerals 10 ml/ Potassium Acetate 20 meq/ Sterile Water/Amino Acids/ Dextrose 1,500 mls @ 62.5 mls/hr IVPB DAILY@1600 [facility] Last Admin: 10/13/19 17:37 Dose: 62.5 mls/hr Metoclopramide HCl (Reglan Injection -) 10 mg IVPUSH Q6H [facility] Last Admin: 10/14/19 06:25 Dose: 10 mg Ondansetron HCl (Zofran Injection) 4 mg IVPUSH Q6H PRN PRN Reason: NAUSEA Last Admin: 10/10/19 09:54 Dose: 4 mg Pantoprazole Sodium (Protonix Iv) 40 mg IVPUSH DAILY [facility] Last Admin: 10/13/19 10:02 Dose: 40 mg Simethicone (Mylicon -) 80 mg PO QID PRN PRN Reason: DYSPEPSIA Last Admin: 10/09/19 20:35 Dose: 80 mg - Objective Vital Signs: Vital Signs Temperature 98.0 F 10/14/19 05:43 Pulse Rate 85 10/14/19 05:43 Respiratory Rate 18 10/14/19 05:43 Blood Pressure 127/56 L 10/14/19 05:43 O2 Sat by Pulse Oximetry (%) 98 10/12/19 21:00 Cardiovascular: Yes: Regular Rate and Rhythm Respiratory: Yes: Diminished, Rales Gastrointestinal: Yes: Normal Bowel Sounds, Soft. No: Distention, Tenderness Edema: No Labs: CBC, BMP 10/14/19 06:25 INR, PTT INR 1.18 (0.83-1.09) H 09/29/19 09:37 Problem List - Problems (1) Abdominal distension Code(s): R14.0 - ABDOMINAL DISTENSION (GASEOUS) (2) Functional quadriplegia Code(s): R53.2 - FUNCTIONAL QUADRIPLEGIA (3) Stage 4 decubitus ulcer Code(s): L89.94 - PRESSURE ULCER OF UNSPECIFIED SITE, STAGE 4 (4) HTN (hypertension) Code(s): I10 - ESSENTIAL (PRIMARY) HYPERTENSION (5) Suprapubic catheter Code(s): Z93.59 - OTHER CYSTOSTOMY STATUS Assessment/Plan (1) Abdominal pain Assessment/Plan: -Improved -GI and Surgery on board -pain control -TPN as per nephrology -10/10/19 CT abd/pel:Status post interval surgery comparison to a CT exam of 09/2019 with visualization of surgical sutures along the rectosigmoid junction region. Interval development of small bowel obstruction is noted as discussed above. Development of a small amount of perihepatic free fluid is seen. Interval development of small right-sided and trace left-sided pleural effusions is noted. The remainder of the exam demonstrates no obvious interval change. Suprapubic cystostomy tube in place. Note is again made of a somewhat thickened appearance of the urinary bladder wall diffusely which may be on the basis of subacute or chronic cystitis. Cholelithiasis. Chronic perirectal soft tissue stranding. Sacral soft tissue ulceration. Note is again made of a truncated appearance of the coccyx which may be on the basis of prior osteomyelitis and/or surgery. -Surgery unable to re-operate at this time due to multiple co-morbidities, will be re-evaluated frequently -DVT Prophylaxis Code(s): R10.9 - UNSPECIFIED ABDOMINAL PAIN Qualifiers: Abdominal location: generalized Qualified Code(s): R10.84 - Generalized abdominal pain (2) Functional quadriplegia Assessment/Plan: -PT -Fall risk precaution Code(s): R53.2 - FUNCTIONAL QUADRIPLEGIA (3) Sigmoid volvulus Assessment/Plan: -GI and Surgery on board -Repeat CT abd/pel shows SBO -pain control -Rectal tube in for decompression -S/P sigmoid colectomy with end colostomy -Incentive spirometer -pain control Code(s): K56.2 - VOLVULUS (4) Stage 4 decubitus ulcer Assessment/Plan: -Vascular on board -reposition q2h -air mattress -draw sheets and Trendelenburg when repositioning to avoid friction and shear -manage incontinence in timely manner -offloading -pack sacral wound with moist kerlix and apply dressing -no surgical debridement at this time Code(s): L89.94 - PRESSURE ULCER OF UNSPECIFIED SITE, STAGE 4 (5) Abdominal distension Assessment/Plan: -GI and Surgery on board -Repeat CT abd/pel shows SBO -NGT -TPN -NPO -Serial Abdominal exams Code(s): R14.0 - ABDOMINAL DISTENSION (GASEOUS) (6) Anemia Assessment/Plan: -Hg 9.5 -transfuse for Hg <7.0 to avoid fluid overload -Anemia panel show low Fe and TIBC -MVI Code(s): D64.9 - ANEMIA, UNSPECIFIED (7) HTN (hypertension) Assessment/Plan: -monitor BP -low Na diet Code(s): I10 - ESSENTIAL (PRIMARY) HYPERTENSION (8) Neurogenic bladder Assessment/Plan: -Urology on board -recommend suprapubic catheter change prior to discharge Code(s): N31.9 - NEUROMUSCULAR DYSFUNCTION OF BLADDER, UNSPECIFIED (9) UTI (urinary tract infection) Assessment/Plan: -ID on board -UA shows 3+ leuks, 3+ blood, 3+ -UC neg -leukocytosis -afebrile -no antibiotic intervention at present, observe off Code(s): N39.0 - URINARY TRACT INFECTION, SITE NOT SPECIFIED Qualifiers: Hematuria presence: with hematuria (10) Hypernatremia Assessment/Plan: -Renal on board -monitor Na level daily Code(s): E87.0 - HYPEROSMOLALITY AND HYPERNATREMIA (11) SOB Assessment/Plan: -CxR -ABG -Venous Duplex -CE
--- NOTE | 2019-10-14 09:17 | PN ---
Progress Note (short form) - Note Progress Note: POD#14 PT denies an pain in his abdomen. States that the ngt is bothering his nose. Vital Signs Period Temp Pulse Resp BP Sys/Bradley Pulse Ox Last 24 Hr 98 F-98.2 F 82-92 16-20 123-144/60-73 98 NGT-300 Ostomy outpt- suprapubic tube- GEN: Alert and follow commands ABD: soft, non-distended, non-tender. Ostomy viable with flatus in the bag and small amount of mucous stool. Midline inc c/d/i with abeilno to the mid abdomen. Inferior aspect healing well, pink granulation tissue CBC, BMP 10/14/19 06:25 10/14/19 06:25 A/P: 73 yo male s/p sigmoid resection with end colostomy Continue local wound care with wet to dry/ostomy care NGT for decompression, it appears to be decreasing and abd not-distended. repeat KUB today D/w. Dr. Ariza
[2019-10-14] MEDS: PANTOPRAZOLE SODIUM 40 MG VIAL IVPUSH SCH (09:45)
[2019-10-14 11:44] LABS: ARTERIAL BLOOD GAS BASE EXCESS -3.6 meq/l (-2-2); ARTERIAL BLOOD GAS PCO2 34.9 mmHg (35-45); ARTERIAL BLOOD GAS PO2 85.9 mmHg (80-100); ARTERIAL BLOOD GAS pH 7.39 (7.35-7.45)
[2019-10-14] MEDS: AMINO ACIDS/PROTEIN HYDROLYS 30 ML LIQUID.PKT PO SCH ×2 (11:44→16:58)
[2019-10-14 11:48] LABS: ALLENS TEST POSITIVE
[2019-10-14] MEDS: HEPARIN NA (PORCINE) 5,000 UNITS/ML 1ML VIAL SQ SCH ×2 (14:09→21:51)
--- NOTE | 2019-10-14 14:50 | PN ---
Progress Note (short form) - Note Progress Note: Renal follow up for MARTINEZ Seen and examined at the bedside awake and alert less abd distension NGT remains on wall suction making urine on TPN Vital Signs Temperature 97.9 F 10/14/19 13:14 Pulse Rate 80 10/14/19 13:14 Respiratory Rate 18 10/14/19 13:14 Blood Pressure 127/51 L 10/14/19 13:14 O2 Sat by Pulse Oximetry (%) 98 10/12/19 21:00 Intake & Output 10/11/19 10/12/19 10/13/19 10/14/19 23:59 23:59 23:59 23:59 Intake Total 1740 1142 650 Output Total 1100 2850 1730 1250 Balance 640 -1704 -2916 -[address] neck supple, no JVD RRR CTA sot NT/ND, ostomy in place no LE edema, clubbing or cyanosis CBC, BMP 10/14/19 06:25 10/14/19 06:25 Current Medications Acetaminophen (Ofirmev Injection -) 1,000 mg IVPB Q6H PRN PRN Reason: PAIN Last Admin: 10/12/19 12:31 Dose: 1,000 mg Amino Acids (Prosource No Carb Liquid Pkt) 30 ml PO BID@0800,1730 [facility] Last Admin: 10/14/19 11:44 Dose: Not Given Benzocaine/Menthol (Cepacol Lozenge -) 1 each MM PRN PRN PRN Reason: SORE THROAT Last Admin: 10/01/19 18:37 Dose: 1 each Heparin Sodium (Porcine) (Heparin -) 5,000 unit SQ TID [facility] Last Admin: 10/14/19 14:09 Dose: 5,000 unit Fat Emulsion Intravenous (Intralipid -) 250 mls @ 20.833 mls/hr IV DAILY@2200 [facility] Last Admin: 10/13/19 21:48 Dose: 20.833 mls/hr Potassium Phosphate 15 mm/Calcium Gluconate 1,000 mg/Magnesium Sulfate 1 gm/ Folic Acid 1 mg/ Multivitamins/Minerals 10 ml/ Potassium Acetate 20 meq/ Sterile Water/Amino Acids/ Dextrose 1,500 mls @ 62.5 mls/hr IVPB DAILY@1600 [facility] Stop: 10/14/19 15:59 Last Admin: 10/13/19 17:37 Dose: 62.5 mls/hr Potassium Phosphate 15 mm/Calcium Gluconate 1,000 mg/Magnesium Sulfate 1 gm/ Folic Acid 1 mg/ Multivitamins/Minerals 10 ml/ Potassium Acetate 20 meq/ Chromium/Copper/Manganese/Zinc 1 ml/Sterile Water/ Amino Acids/Dextrose 1,500 mls @ 62.5 mls/hr IVPB DAILY@1600 [facility] Metoclopramide HCl (Reglan Injection -) 10 mg IVPUSH Q6H [facility] Last Admin: 10/14/19 12:50 Dose: 10 mg Ondansetron HCl (Zofran Injection) 4 mg IVPUSH Q6H PRN PRN Reason: NAUSEA Last Admin: 10/10/19 09:54 Dose: 4 mg Pantoprazole Sodium (Protonix Iv) 40 mg IVPUSH DAILY [facility] Last Admin: 10/14/19 09:45 Dose: 40 mg Simethicone (Mylicon -) 80 mg PO QID PRN PRN Reason: DYSPEPSIA Last Admin: 10/09/19 20:35 Dose: 80 mg 73 year old Gentleman with history of Quadriplegia, neurogenic bladder with SPC , hypertension, DM who presented with recurrent sigmoid volvolus s/p Hartmans procedure with worsening renal function. 1. Acute kidney injury likely due to hypovolemia 2. Recurrent sigmoid volvolus s/p Hartmans procedure 3. Neurogenic bladder 4. Hypernatremia 5. Anemia 6. Prolonged NPO now requiring TPN Will continue TPN today. Nutrition recommendations noted, will decrease rate to 1.3L tomorrow. Trend electrolytes daily. Surgical follow up. Arias Eubanks DO
--- NOTE | 2019-10-14 15:30 | PN ---
Progress Note (short form) - Note Progress Note: Attending Surgeon POD#14 No c/o e/f discomfort from the NGT; remains on TPN VSS AF abdo-soft;flat and non tender; ostomy viable w/gas and scant stool; incision c/d /i KUB-reviewed; still some distended sb loops IMP: post op SBO; resolving PLAN: Continue present tx.. may consider SBS. Chapo Quintero MD FACS
[2019-10-14] MEDS ORDERED: MAGNESIUM SULFATE IVPB SCH (16:00)
[2019-10-14] MEDS ORDERED: CALCIUM GLUCONATE IVPB SCH (16:00)
[2019-10-14] MEDS ORDERED: POTASSIUM PHOSPHATE IVPB SCH (16:00)
[2019-10-14] MEDS ORDERED: [UNRECOGNIZED DRUG - OTHER] IVPB SCH (16:00)
[2019-10-14] MEDS: FAT EMULSIONS 250 ML IV SCH (21:00)
[2019-10-15] MEDS: HEPARIN NA (PORCINE) 5,000 UNITS/ML 1ML VIAL SQ SCH ×3 (05:43→21:23)
[2019-10-15] MEDS: METOCLOPRAMIDE HCL INJECTION 10 MG/2 ML VIAL IVPUSH SCH ×3 (05:43→18:00)
[2019-10-15] MEDS: AMINO ACIDS/PROTEIN HYDROLYS 30 ML LIQUID.PKT PO SCH ×2 (08:06→17:09)
[2019-10-15 08:16] LABS: BASO % 0.6 % (0-2.0); EOS % 6.1 % (0-4.5); HEMATOCRIT 30.3 % (35.4-49); HEMOGLOBIN 9.7 GM/dL (11.7-16.9); LYMPH % 12.6 % (8-40); MCHC 31.8 g/dl (32.0-35.9); MEAN CELL VOLUME 84.9 fl (80-96); MEAN PLT VOLUME 6.7 fl (7.5-11.1); MONO % 8.8 % (3.8-10.2); NEUT % 71.9 % (42.8-82.8); PLATELET COUNT 426 K/MM3 (134-434); RBC 3.57 M/mm3 (4.00-5.60); RDW 15.3 % (11.9-15.9); WHITE BLOOD COUNT 12.4 K/mm3 (4.0-10.0)
[2019-10-15 08:51] LABS: ALBUMIN 1.7 g/dl (3.4-5.0); BILIRUBIN,TOTAL 0.7 mg/dL (0.2-1); CALCIUM 8.7 mg/dL (8.5-10.1); MAGNESIUM 2.5 mg/dL (1.8-2.4); POTASSIUM 4.4 mmol/L (3.5-5.1)
[2019-10-15] MEDS: ACETAMINOPHEN 1000 MG/100 ML VIAL (NON FORMULARY) IVPB PRN (09:03)
[2019-10-15] MEDS: PANTOPRAZOLE SODIUM 40 MG VIAL IVPUSH SCH (09:03)
--- NOTE | 2019-10-15 11:06 | PN ---
Progress Note (short form) - Note Progress Note: Renal follow up for MARTINEZ Seen and examined at the bedside awake and alert no overnight events Vital Signs Temperature 98.1 F 10/15/19 06:06 Pulse Rate 95 H 10/15/19 06:06 Respiratory Rate 19 10/15/19 06:06 Blood Pressure 114/61 10/15/19 06:06 O2 Sat by Pulse Oximetry (%) 95 10/15/19 10:00 Intake & Output 10/12/19 10/13/19 10/14/19 10/15/19 23:59 23:59 23:59 23:59 Intake Total 1142 650 850 958 Output Total 2850 1730 2125 1030 Balance -1708 -1080 -1275 -72 NAD no LE edema CBC, BMP 10/15/19 07:35 10/15/19 07:35 Current Medications Acetaminophen (Ofirmev Injection -) 1,000 mg IVPB Q6H PRN PRN Reason: PAIN Last Admin: 10/15/19 09:03 Dose: 1,000 mg Amino Acids (Prosource No Carb Liquid Pkt) 30 ml PO BID@0800,1730 [facility] Last Admin: 10/15/19 08:06 Dose: Not Given Benzocaine/Menthol (Cepacol Lozenge -) 1 each MM PRN PRN PRN Reason: SORE THROAT Last Admin: 10/01/19 18:37 Dose: 1 each Heparin Sodium (Porcine) (Heparin -) 5,000 unit SQ TID [facility] Last Admin: 10/15/19 05:43 Dose: 5,000 unit Fat Emulsion Intravenous (Intralipid -) 250 mls @ 20.833 mls/hr IV DAILY@2200 [facility] Last Admin: 10/14/19 21:00 Dose: 20.833 mls/hr Potassium Phosphate 15 mm/Calcium Gluconate 1,000 mg/Magnesium Sulfate 1 gm/ Folic Acid 1 mg/ Multivitamins/Minerals 10 ml/ Potassium Acetate 20 meq/ Chromium/Copper/Manganese/Zinc 1 ml/Sterile Water/ Amino Acids/Dextrose 1,500 mls @ 62.5 mls/hr IVPB DAILY@1600 [facility] Last Admin: 10/14/19 17:39 Dose: 62.5 mls/hr Metoclopramide HCl (Reglan Injection -) 10 mg IVPUSH Q6H [facility] Last Admin: 10/15/19 05:43 Dose: 10 mg Ondansetron HCl (Zofran Injection) 4 mg IVPUSH Q6H PRN PRN Reason: NAUSEA Last Admin: 10/10/19 09:54 Dose: 4 mg Pantoprazole Sodium (Protonix Iv) 40 mg IVPUSH DAILY [facility] Last Admin: 10/15/19 09:03 Dose: 40 mg Simethicone (Mylicon -) 80 mg PO QID PRN PRN Reason: DYSPEPSIA Last Admin: 10/09/19 20:35 Dose: 80 mg 73 year old Gentleman with history of Quadriplegia, neurogenic bladder with SPC , hypertension, DM who presented with recurrent sigmoid volvolus s/p Hartmans procedure with worsening renal function. 1. Acute kidney injury likely due to hypovolemia 2. Recurrent sigmoid volvolus s/p Hartmans procedure 3. Neurogenic bladder 4. Hypernatremia 5. Anemia 6. Prolonged NPO now requiring TPN Continue TPN. Orders adjusted today. Trend electrolytes daily will check triglycerides on Thursday. Arias Eubanks DO
--- NOTE | 2019-10-15 12:04 | PN ---
Progress Note, Physician Chief Complaint: AWAKE ALERT NGT FUNCTIONING NO FEVER OR CHILLS - Current Medication List Current Medications: Active Medications Acetaminophen (Ofirmev Injection -) 1,000 mg IVPB Q6H PRN PRN Reason: PAIN Last Admin: 10/15/19 09:03 Dose: 1,000 mg Amino Acids (Prosource No Carb Liquid Pkt) 30 ml PO BID@0800,1730 [facility] Last Admin: 10/15/19 08:06 Dose: Not Given Benzocaine/Menthol (Cepacol Lozenge -) 1 each MM PRN PRN PRN Reason: SORE THROAT Last Admin: 10/01/19 18:37 Dose: 1 each Heparin Sodium (Porcine) (Heparin -) 5,000 unit SQ TID [facility] Last Admin: 10/15/19 05:43 Dose: 5,000 unit Fat Emulsion Intravenous (Intralipid -) 250 mls @ 20.833 mls/hr IV DAILY@2200 [facility] Last Admin: 10/14/19 21:00 Dose: 20.833 mls/hr Potassium Phosphate 15 mm/Calcium Gluconate 1,000 mg/Magnesium Sulfate 1 gm/ Folic Acid 1 mg/ Multivitamins/Minerals 10 ml/ Potassium Acetate 20 meq/ Chromium/Copper/Manganese/Zinc 1 ml/Sterile Water/ Amino Acids/Dextrose 1,500 mls @ 62.5 mls/hr IVPB DAILY@1600 [facility] Last Admin: 10/14/19 17:39 Dose: 62.5 mls/hr Metoclopramide HCl (Reglan Injection -) 10 mg IVPUSH Q6H [facility] Last Admin: 10/15/19 05:43 Dose: 10 mg Ondansetron HCl (Zofran Injection) 4 mg IVPUSH Q6H PRN PRN Reason: NAUSEA Last Admin: 10/10/19 09:54 Dose: 4 mg Pantoprazole Sodium (Protonix Iv) 40 mg IVPUSH DAILY [facility] Last Admin: 10/15/19 09:03 Dose: 40 mg Simethicone (Mylicon -) 80 mg PO QID PRN PRN Reason: DYSPEPSIA Last Admin: 10/09/19 20:35 Dose: 80 mg - Objective Vital Signs: Vital Signs Temperature 98.0 F 10/15/19 09:16 Pulse Rate 78 10/15/19 09:16 Respiratory Rate 18 10/15/19 09:16 Blood Pressure 122/58 L 10/15/19 09:16 O2 Sat by Pulse Oximetry (%) 95 10/15/19 10:00 Constitutional: Yes: Mild Distress HENT: Yes: Other (NGT) Cardiovascular: Yes: Regular Rate and Rhythm Respiratory: Yes: WNL Gastrointestinal: Yes: Soft (COLOSTOMY FILLED WITH MUCUS) Genitourinary: Yes: Rowe Present Edema: No Wound/Incision: Yes: Other Neurological: Yes: Pre-Existing Deficit Labs: CBC, BMP 10/15/19 07:35 10/15/19 07:35 INR, PTT INR 1.18 (0.83-1.09) H 09/29/19 09:37 Problem List - Problems (1) Abdominal pain Code(s): R10.9 - UNSPECIFIED ABDOMINAL PAIN Qualifiers: Abdominal location: generalized Qualified Code(s): R10.84 - Generalized abdominal pain (2) Functional quadriplegia Code(s): R53.2 - FUNCTIONAL QUADRIPLEGIA (3) Ileus, unspecified Code(s): K56.7 - ILEUS, UNSPECIFIED Assessment/Plan NGT TO GRAVITY CONTINUE DECOMPRESSION FROM GI OBSTRUCTION DVT PROPHYLAXIS PAIN CONTROL CLINIMIX FOR NUTRITION
--- NOTE | 2019-10-15 14:23 | PN ---
Progress Note (short form) - Note Progress Note: Attending Surgeon POD#15 No c/o e/f discomfort from the NGT; remains on TPN VSS AF abdo-soft;flat and non tender and non tympanitic; ostomy viable w/gas and formed stool stool; incision c/d/i NGT 400 cc/24 hours IMP: post op SBO; resolving PLAN: Continue present tx.. d/w Yeselis his daughter Chapo Quintero MD FACS
[2019-10-15] MEDS: CALCIUM GLUCONATE IV SCH (16:12)
[2019-10-15] MEDS: POTASSIUM ACETATE IV SCH (16:12)
[2019-10-15] MEDS: POTASSIUM PHOSPHATE IV SCH (16:12)
[2019-10-15] MEDS: [UNRECOGNIZED DRUG - OTHER] IV SCH (16:12)
[2019-10-15] MEDS: FAT EMULSIONS 250 ML IV SCH (21:23)
[2019-10-16] MEDS: METOCLOPRAMIDE HCL INJECTION 10 MG/2 ML VIAL IVPUSH SCH ×4 (00:29→17:56)
[2019-10-16] MEDS: HEPARIN NA (PORCINE) 5,000 UNITS/ML 1ML VIAL SQ SCH ×3 (06:26→22:05)
[2019-10-16] MEDS: AMINO ACIDS/PROTEIN HYDROLYS 30 ML LIQUID.PKT PO SCH ×2 (07:40→17:25)
--- NOTE | 2019-10-16 08:39 | PN ---
Progress Note, Physician Chief Complaint: AWAKE ALERT NGT FUNCTIONING NO FEVER OR CHILLS - Current Medication List Current Medications: Active Medications Acetaminophen (Ofirmev Injection -) 1,000 mg IVPB Q6H PRN PRN Reason: PAIN Last Admin: 10/15/19 09:03 Dose: 1,000 mg Amino Acids (Prosource No Carb Liquid Pkt) 30 ml PO BID@0800,1730 [facility] Last Admin: 10/16/19 07:40 Dose: Not Given Benzocaine/Menthol (Cepacol Lozenge -) 1 each MM PRN PRN PRN Reason: SORE THROAT Last Admin: 10/01/19 18:37 Dose: 1 each Heparin Sodium (Porcine) (Heparin -) 5,000 unit SQ TID [facility] Last Admin: 10/16/19 06:26 Dose: 5,000 unit Fat Emulsion Intravenous (Intralipid -) 250 mls @ 20.833 mls/hr IV DAILY@2200 [facility] Last Admin: 10/15/19 21:23 Dose: 20.833 mls/hr Potassium Acetate 20 meq/Potassium Phosphate 15 mm/Calcium Gluconate 1,000 mg/ Magnesium Sulfate 1 gm/ Folic Acid 1 mg/ Cyanocobalamin 100 mcg/ Multivitamins/ Minerals 10 ml/ Sterile Water/ Amino Acids/ Dextrose 1,300 mls @ 62.5 mls/hr IV DAILY@1600 [facility] Last Admin: 10/15/19 16:12 Dose: 62.5 mls/hr Metoclopramide HCl (Reglan Injection -) 10 mg IVPUSH Q6H [facility] Last Admin: 10/16/19 06:26 Dose: 10 mg Ondansetron HCl (Zofran Injection) 4 mg IVPUSH Q6H PRN PRN Reason: NAUSEA Last Admin: 10/10/19 09:54 Dose: 4 mg Pantoprazole Sodium (Protonix Iv) 40 mg IVPUSH DAILY [facility] Last Admin: 10/15/19 09:03 Dose: 40 mg Simethicone (Mylicon -) 80 mg PO QID PRN PRN Reason: DYSPEPSIA Last Admin: 10/09/19 20:35 Dose: 80 mg - Objective Vital Signs: Vital Signs Temperature 97.9 F 10/15/19 19:00 Pulse Rate 92 H 10/15/19 19:00 Respiratory Rate 19 10/15/19 19:00 Blood Pressure 118/57 L 10/15/19 19:00 O2 Sat by Pulse Oximetry (%) 95 10/15/19 10:00 Constitutional: Yes: Mild Distress HENT: Yes: Other (NGT GRAVITY) Cardiovascular: Yes: Regular Rate and Rhythm Respiratory: Yes: WNL Gastrointestinal: Yes: Other (COLOSTOMY) Genitourinary: Yes: Incontinence Musculoskeletal: Yes: Muscle Weakness Labs: CBC, BMP 10/15/19 07:35 10/15/19 07:35 INR, PTT INR 1.18 (0.83-1.09) H 09/29/19 09:37 Problem List - Problems (1) Abdominal pain Code(s): R10.9 - UNSPECIFIED ABDOMINAL PAIN Qualifiers: Abdominal location: generalized Qualified Code(s): R10.84 - Generalized abdominal pain (2) Functional quadriplegia Code(s): R53.2 - FUNCTIONAL QUADRIPLEGIA (3) Ileus, unspecified Code(s): K56.7 - ILEUS, UNSPECIFIED Assessment/Plan NGT TO GRAVITY CONTINUE DECOMPRESSION FROM GI OBSTRUCTION DVT PROPHYLAXIS PAIN CONTROL CLINIMIX FOR NUTRITION
[2019-10-16 09:16] LABS: BASO % 0.6 % (0-2.0); EOS % 5.6 % (0-4.5); HEMATOCRIT 30.6 % (35.4-49); HEMOGLOBIN 9.6 GM/dL (11.7-16.9); LYMPH % 9.2 % (8-40); MCH 26.4 pg (25.7-33.7); MCHC 31.3 g/dl (32.0-35.9); MEAN CELL VOLUME 84.3 fl (80-96); MEAN PLT VOLUME 6.8 fl (7.5-11.1); MONO % 8.8 % (3.8-10.2); NEUT % 75.8 % (42.8-82.8); PLATELET COUNT 471 K/MM3 (134-434); RBC 3.63 M/mm3 (4.00-5.60); RDW 15.4 % (11.9-15.9); WHITE BLOOD COUNT 13.8 K/mm3 (4.0-10.0)
[2019-10-16] MEDS: PANTOPRAZOLE SODIUM 40 MG VIAL IVPUSH SCH (09:19)
[2019-10-16 10:41] LABS: ALBUMIN 1.8 g/dl (3.4-5.0); BILIRUBIN,TOTAL 0.2 mg/dL (0.2-1); BLOOD UREA NITROGEN 90.5 mg/dL (7-18); CREATININE 1.2 mg/dL (0.55-1.3); MAGNESIUM 2.5 mg/dL (1.8-2.4); PHOSPHOROUS 3.3 mg/dL (2.5-4.9); POTASSIUM 4.9 mmol/L (3.5-5.1); TOT PROT 6.4 g/dl (6.4-8.2)
[2019-10-16] MEDS: [UNRECOGNIZED DRUG - OTHER] IV SCH (15:23)
[2019-10-16] MEDS: POTASSIUM PHOSPHATE IV SCH (15:23)
[2019-10-16] MEDS: CALCIUM GLUCONATE IV SCH (15:23)
[2019-10-16] MEDS: POTASSIUM ACETATE IV SCH (15:23)
[2019-10-16] MEDS: FAT EMULSIONS 250 ML IV SCH (21:00)
[2019-10-17] MEDS: METOCLOPRAMIDE HCL INJECTION 10 MG/2 ML VIAL IVPUSH SCH ×5 (00:10→18:51)
[2019-10-17] MEDS: HEPARIN NA (PORCINE) 5,000 UNITS/ML 1ML VIAL SQ SCH ×3 (06:00→21:58)
[2019-10-17 08:30] LABS: ALBUMIN 1.9 g/dl (3.4-5.0); BILIRUBIN,TOTAL 0.2 mg/dL (0.2-1); CALCIUM 9.2 mg/dL (8.5-10.1); CREATININE 1.3 mg/dL (0.55-1.3); MAGNESIUM 2.5 mg/dL (1.8-2.4); PHOSPHOROUS 3.5 mg/dL (2.5-4.9); POTASSIUM 4.5 mmol/L (3.5-5.1); TOT PROT 6.5 g/dl (6.4-8.2)
[2019-10-17 08:35] LABS: BLOOD UREA NITROGEN 118.8 mg/dL (7-18)
[2019-10-17] MEDS: AMINO ACIDS/PROTEIN HYDROLYS 30 ML LIQUID.PKT PO SCH (10:56)
[2019-10-17] MEDS: PANTOPRAZOLE SODIUM 40 MG VIAL IVPUSH SCH (12:19)
--- NOTE | 2019-10-17 12:44 | PN ---
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 10/17/19 Abdominal xray pending today NGT suctioning - Current Medication List Current Medications: Active Medications Acetaminophen (Ofirmev Injection -) 1,000 mg IVPB Q6H PRN PRN Reason: PAIN Last Admin: 10/15/19 09:03 Dose: 1,000 mg Amino Acids (Prosource No Carb Liquid Pkt) 30 ml PO BID@0800,1730 [facility] Last Admin: 10/17/19 10:56 Dose: Not Given Benzocaine/Menthol (Cepacol Lozenge -) 1 each MM PRN PRN PRN Reason: SORE THROAT Last Admin: 10/01/19 18:37 Dose: 1 each Heparin Sodium (Porcine) (Heparin -) 5,000 unit SQ TID [facility] Last Admin: 10/17/19 06:00 Dose: 5,000 unit Fat Emulsion Intravenous (Intralipid -) 250 mls @ 20.833 mls/hr IV DAILY@2200 [facility] Last Admin: 10/16/19 21:00 Dose: 20.833 mls/hr Potassium Acetate 20 meq/Potassium Phosphate 15 mm/Calcium Gluconate 1,000 mg/ Magnesium Sulfate 1 gm/ Folic Acid 1 mg/ Cyanocobalamin 100 mcg/ Multivitamins/ Minerals 10 ml/ Sterile Water/ Amino Acids/ Dextrose 1,300 mls @ 54.17 mls/hr IV DAILY@1600 [facility] Last Admin: 10/16/19 15:23 Dose: 54.17 mls/hr Metoclopramide HCl (Reglan Injection -) 10 mg IVPUSH Q6H [facility] Last Admin: 10/17/19 12:19 Dose: 10 mg Ondansetron HCl (Zofran Injection) 4 mg IVPUSH Q6H PRN PRN Reason: NAUSEA Last Admin: 10/10/19 09:54 Dose: 4 mg Pantoprazole Sodium (Protonix Iv) 40 mg IVPUSH DAILY [facility] Last Admin: 10/17/19 12:19 Dose: 40 mg Simethicone (Mylicon -) 80 mg PO QID PRN PRN Reason: DYSPEPSIA Last Admin: 10/09/19 20:35 Dose: 80 mg - Objective Vital Signs: Vital Signs Temperature 97.6 F 10/17/19 05:53 Pulse Rate 100 H 10/17/19 05:53 Respiratory Rate 18 10/17/19 05:53 Blood Pressure 102/62 10/17/19 05:53 O2 Sat by Pulse Oximetry (%) 95 10/16/19 21:00 Constitutional: Yes: No Distress, Calm, Cachectic Cardiovascular: Yes: Regular Rate and Rhythm Respiratory: Yes: Regular, Diminished (BLL) Gastrointestinal: Yes: Hypoactive Bowel Sounds, Tenderness (diffuse) Genitourinary: Yes: Other (suprpubic catheter) Musculoskeletal: Yes: Muscle Weakness Extremities: Yes: WNL Edema: No Peripheral Pulses WNL: Yes Neurological: Yes: Alert, Oriented Psychiatric: Yes: Alert, Oriented Labs: CBC, BMP 10/16/19 08:20 10/17/19 07:10 INR, PTT INR 1.18 (0.83-1.09) H 09/29/19 09:37 Problem List - Problems (1) Elevated BUN Assessment/Plan: -Nephrology on board -TPN orders to be adjusted Problems reviewed: Yes Code(s): R79.9 - ABNORMAL FINDING OF BLOOD CHEMISTRY, UNSPECIFIED Assessment/Plan (1) Abdominal pain Assessment/Plan: -GI and Surgery on board -CTAP shows moderate gasseous distention of a tortuous sigmoid colon, possibility of intermittent volvulus should be considered, inflammatory changes about the distal sigmoid and rectum suspicious for proctitis, suprapubic cystostomy tube with thickened urinary bladder, cystitis cannot be excluded cholelithiasis with no evidence of acute cholecystitis -pain control -Abdominal Xray today pending results -NPO -Continue TPN -Has PICC line Code(s): R10.9 - UNSPECIFIED ABDOMINAL PAIN Qualifiers: Abdominal location: generalized Qualified Code(s): R10.84 - Generalized abdominal pain (2) Functional quadriplegia Assessment/Plan: -PT -Fall risk precaution Code(s): R53.2 - FUNCTIONAL QUADRIPLEGIA (3) Sigmoid volvulus Assessment/Plan: -GI and Surgery on board -Repeat CT abd/pel shows SBO -pain control -Rectal tube in for decompression -S/P sigmoid colectomy with end colostomy -Incentive spirometer -pain control -Abd Xray today pending Code(s): K56.2 - VOLVULUS (4) Stage 4 decubitus ulcer Assessment/Plan: -Vascular on board -reposition q2h -air mattress -drawsheets and Trendelenburg when repositioning to avoid friction and shear -manage incontinence in timely manner -offloading -pack sacral wound with moist kerlix and apply dressing -no surgical debridement at this time Code(s): L89.94 - PRESSURE ULCER OF UNSPECIFIED SITE, STAGE 4 (5) Abdominal distension Assessment/Plan: -GI and Surgery on board -Repeat CT abd/pel shows SBO -Serial Abdominal xrays with lastest from 09/26/19 showing some decompression of sigmoid since 09/24/19 -NPO -Serial Abdominal exams Code(s): R14.0 - ABDOMINAL DISTENSION (GASEOUS) (6) Anemia Assessment/Plan: -Hg 9.5 -transfuse for Hg <7.0 to avoid fluid overload -Anemia panel show low Fe and TIBC -MVI Code(s): D64.9 - ANEMIA, UNSPECIFIED (7) HTN (hypertension) Assessment/Plan: -monitor BP -low Na diet Code(s): I10 - ESSENTIAL (PRIMARY) HYPERTENSION (8) Neurogenic bladder Assessment/Plan: -Urology on board -recommend suprapubic catheter change prior to discharge Code(s): N31.9 - NEUROMUSCULAR DYSFUNCTION OF BLADDER, UNSPECIFIED (9) UTI (urinary tract infection) Assessment/Plan: -ID on board -UA shows 3+ leuks, 3+ blood, 3+ -UC neg -leukocytosis -afebrile -no antibiotic intervention at present, observe off Code(s): N39.0 - URINARY TRACT INFECTION, SITE NOT SPECIFIED Qualifiers: Hematuria presence: with hematuria (10) Hypernatremia Assessment/Plan: -Renal on board -monitor Na level daily Code(s): E87.0 - HYPEROSMOLALITY AND HYPERNATREMIA (11) Ileus, unspecified Assessment/Plan: -CT abd/pelvis + SBO -TPN via -NGT -NPO -Serial Abdominal exams -GI on board Code(s): K56.7 - ILEUS, UNSPECIFIED
--- NOTE | 2019-10-17 12:57 | PN ---
Progress Note (short form) - Note Progress Note: Renal follow up for MARTINEZ Seen and examined at the bedside seen and examined at the [facility] Vital Signs Temperature 98.1 F 10/15/19 06:06 Pulse Rate 95 H 10/15/19 06:06 Respiratory Rate 19 10/15/19 06:06 Blood Pressure 114/61 10/15/19 06:06 O2 Sat by Pulse Oximetry (%) 95 10/15/19 10:00 Intake & Output 10/12/19 10/13/19 10/14/19 10/15/19 23:59 23:59 23:59 23:59 Intake Total 1142 650 850 958 Output Total 2850 1730 2125 1030 Balance -1708 -1080 -1275 -72 NAD soft NT/ND Abd no LE edema CBC, BMP 10/16/19 08:20 10/17/19 07:10 Current Medications Acetaminophen (Ofirmev Injection -) 1,000 mg IVPB Q6H PRN PRN Reason: PAIN Last Admin: 10/15/19 09:03 Dose: 1,000 mg Amino Acids (Prosource No Carb Liquid Pkt) 30 ml PO BID@0800,1730 [facility] Last Admin: 10/17/19 10:56 Dose: Not Given Benzocaine/Menthol (Cepacol Lozenge -) 1 each MM PRN PRN PRN Reason: SORE THROAT Last Admin: 10/01/19 18:37 Dose: 1 each Heparin Sodium (Porcine) (Heparin -) 5,000 unit SQ TID [facility] Last Admin: 10/17/19 14:48 Dose: 5,000 unit Fat Emulsion Intravenous (Intralipid -) 250 mls @ 20.833 mls/hr IV DAILY@2200 [facility] Last Admin: 10/16/19 21:00 Dose: 20.833 mls/hr Potassium Acetate 20 meq/Potassium Phosphate 15 mm/Calcium Gluconate 1,000 mg/ Magnesium Sulfate 1 gm/ Folic Acid 1 mg/ Cyanocobalamin 100 mcg/ Multivitamins/ Minerals 10 ml/ Sterile Water/ Amino Acids/ Dextrose 1,300 mls @ 54.17 mls/hr IV DAILY@1600 [facility] Stop: 10/17/19 15:59 Last Admin: 10/16/19 15:23 Dose: 54.17 mls/hr Potassium Phosphate 15 mm/Folic Acid 1 mg/ Thiamine HCl 100 mg/ Multivitamins/ Minerals 10 ml/ Chromium/Copper/Manganese/Zinc 1 ml/ Sterile Water/ Amino Acids / Dextrose 1,300 mls @ 54.17 mls/hr IVPB DAILY@1600 [facility] Last Admin: 10/17/19 14:47 Dose: 54.17 mls/hr Metoclopramide HCl (Reglan Injection -) 10 mg IVPUSH Q6H [facility] Last Admin: 10/17/19 12:30 Dose: 10 mg Ondansetron HCl (Zofran Injection) 4 mg IVPUSH Q6H PRN PRN Reason: NAUSEA Last Admin: 10/10/19 09:54 Dose: 4 mg Pantoprazole Sodium (Protonix Iv) 40 mg IVPUSH DAILY [facility] Last Admin: 10/17/19 12:19 Dose: 40 mg Simethicone (Mylicon -) 80 mg PO QID PRN PRN Reason: DYSPEPSIA Last Admin: 10/09/19 20:35 Dose: 80 mg 73 year old Gentleman with history of Quadriplegia, neurogenic bladder with SPC , hypertension, DM who presented with recurrent sigmoid volvolus s/p Hartmans procedure with worsening renal function. 1. Acute kidney injury likely due to hypovolemia 2. Recurrent sigmoid volvolus s/p Hartmans procedure 3. Neurogenic bladder 4. Hypernatremia 5. Anemia 6. Prolonged NPO now requiring TPN Continue TPN. High BUN likely due to hyperalminentation from TPN. If BUN remains high will need to reduce protein content no signs of volume depletion at this time. Arias Eubanks DO
[2019-10-17] MEDS: THIAMINE HCL IVPB SCH ×2 (14:47→18:45)
[2019-10-17] MEDS: FOLIC ACID IVPB SCH ×2 (14:47→18:45)
[2019-10-17] MEDS: [UNRECOGNIZED DRUG - OTHER] IVPB SCH ×2 (14:47→18:45)
[2019-10-17] MEDS: POTASSIUM PHOSPHATE IVPB SCH ×2 (14:47→18:45)
[2019-10-17] MEDS: FAT EMULSIONS 250 ML IV SCH (21:58)
--- NOTE | 2019-10-17 22:19 | PN ---
Progress Note (short form) - Note Progress Note: Attending Surgeon POD#17 No c/o VSS AF abdo-soft; flat abd nontender; wound intact; ostomy w/gas and stool NGT-200 cc/24 hours AXR-improved IMP: resolving post op sbo PLAN: NGT d/c'ed; trial of clear liquids starting tomorrow. Chapo Quintero MD FACS
[2019-10-18] MEDS: METOCLOPRAMIDE HCL INJECTION 10 MG/2 ML VIAL IVPUSH SCH ×4 (00:33→18:53)
[2019-10-18] MEDS: HEPARIN NA (PORCINE) 5,000 UNITS/ML 1ML VIAL SQ SCH ×3 (06:30→21:51)
--- NOTE | 2019-10-18 08:13 | PN ---
Progress Note (short form) - Note Progress Note: PATIENT IN BED NGT TO SUCTION NO FEVER OR CHILLS ON PARENTRAL NUTRITION IV NON-TENDER ABDOMEN PLAN: AT THIS POINT [facility] FOR ANY INTERVENTION WITH SURGERY OR GI. PLEASE ADVISE Problem List - Problems (1) Abdominal pain Code(s): R10.9 - UNSPECIFIED ABDOMINAL PAIN Qualifiers: Abdominal location: generalized Qualified Code(s): R10.84 - Generalized abdominal pain (2) Functional quadriplegia Code(s): R53.2 - FUNCTIONAL QUADRIPLEGIA (3) Ileus, unspecified Code(s): K56.7 - ILEUS, UNSPECIFIED
--- NOTE | 2019-10-18 08:16 | PN ---
Progress Note (short form) - Note Progress Note: GENERAL SURGERY POD #18 s/p sigmoid colon resection and colostomy Awake. No complaints. Resting comfortably. TPN via PICC. NGT dc'd yesterday. Denies n/v/f/c, CP, palpitatons, SOB or SANDERS. Afeb. AVSS PE GEN: nad ABD: soft; flat; nontender; wound intact; ostomy w/gas and stool Problem List - Problems (1) Status post Kimmie procedure Assessment/Plan: Start Clear liquid diet and advance as tolerated DVT PPX Ostomy care Cont care per primary team Above plan discussed with Dr. Quintero and agrees. Code(s): Z93.3 - COLOSTOMY STATUS (2) Stage 4 decubitus ulcer Code(s): L89.94 - PRESSURE ULCER OF UNSPECIFIED SITE, STAGE 4 (3) Abdominal pain Code(s): R10.9 - UNSPECIFIED ABDOMINAL PAIN Qualifiers: Abdominal location: generalized Qualified Code(s): R10.84 - Generalized abdominal pain (4) Suprapubic catheter Code(s): Z93.59 - OTHER CYSTOSTOMY STATUS (5) Functional quadriplegia Code(s): R53.2 - FUNCTIONAL QUADRIPLEGIA (6) Neurogenic bladder Code(s): N31.9 - NEUROMUSCULAR DYSFUNCTION OF BLADDER, UNSPECIFIED (7) UTI (urinary tract infection) Code(s): N39.0 - URINARY TRACT INFECTION, SITE NOT SPECIFIED Qualifiers: Hematuria presence: with hematuria
[2019-10-18 08:18] LABS: BASO % 0.9 % (0-2.0); EOS % 7.6 % (0-4.5); HEMATOCRIT 29.1 % (35.4-49); HEMOGLOBIN 9.4 GM/dL (11.7-16.9); LYMPH % 10.2 % (8-40); MCH 26.9 pg (25.7-33.7); MCHC 32.2 g/dl (32.0-35.9); MEAN CELL VOLUME 83.5 fl (80-96); NEUT % 71.3 % (42.8-82.8); PLATELET COUNT 495 K/MM3 (134-434); RBC 3.49 M/mm3 (4.00-5.60); RDW 15.1 % (11.9-15.9); WHITE BLOOD COUNT 10.5 K/mm3 (4.0-10.0)
[2019-10-18 08:31] LABS: ALBUMIN 1.8 g/dl (3.4-5.0); BILIRUBIN,TOTAL 0.2 mg/dL (0.2-1); CALCIUM 8.7 mg/dL (8.5-10.1); CREATININE 1.5 mg/dL (0.55-1.3); POTASSIUM 4.5 mmol/L (3.5-5.1); TOT PROT 6.5 g/dl (6.4-8.2)
[2019-10-18 08:35] LABS: BLOOD UREA NITROGEN 140.5 mg/dL (7-18)
[2019-10-18] MEDS ORDERED: SODIUM CHLORIDE 1,000 ML IV STA (10:25)
[2019-10-18] MEDS: PANTOPRAZOLE SODIUM 40 MG VIAL IVPUSH SCH (11:17)
[2019-10-18] MEDS ORDERED: MULTIVIT IVPB SCH (16:00)
[2019-10-18] MEDS ORDERED: THIAMINE HCL IVPB SCH (16:00)
[2019-10-18] MEDS ORDERED: [UNRECOGNIZED DRUG - OTHER] IVPB SCH (16:00)
[2019-10-18] MEDS ORDERED: POTASSIUM PHOSPHATE IVPB SCH (16:00)
--- NOTE | 2019-10-18 16:32 | PN ---
Progress Note (short form) - Note Progress Note: Renal follow up for MARTINEZ Seen and examined at the bedside awake and alert has mild abdominal pain has gas Vital Signs Temperature 97.6 F 10/18/19 14:59 Pulse Rate 87 10/18/19 14:59 Respiratory Rate 18 10/18/19 14:59 Blood Pressure 107/48 L 10/18/19 14:59 O2 Sat by Pulse Oximetry (%) 100 10/18/19 09:00 Intake & Output 10/15/19 10/16/19 10/17/19 10/18/19 23:59 23:59 23:59 23:59 Intake Total 1758 356 629 8252 Output Total 2630 1100 2260 500 Balance -872 -350 -1360 700 NAD CTA soft NT/ND Abd no LE edema CBC, BMP 10/18/19 06:00 10/18/19 06:00 Current Medications Acetaminophen (Ofirmev Injection -) 1,000 mg IVPB Q6H PRN PRN Reason: PAIN Last Admin: 10/15/19 09:03 Dose: 1,000 mg Benzocaine/Menthol (Cepacol Lozenge -) 1 each MM PRN PRN PRN Reason: SORE THROAT Last Admin: 10/01/19 18:37 Dose: 1 each Heparin Sodium (Porcine) (Heparin -) 5,000 unit SQ TID [facility] Last Admin: 10/18/19 14:39 Dose: 5,000 unit Fat Emulsion Intravenous (Intralipid -) 250 mls @ 20.833 mls/hr IV DAILY@2200 [facility] Last Admin: 10/17/19 21:58 Dose: 20.833 mls/hr Potassium Phosphate 15 mm/Thiamine HCl 100 mg/Multivitamins/Minerals 10 ml/ Potassium Acetate 10 meq/Sterile Water/ Amino Acids/Dextrose 1,300 mls @ 54.17 mls/hr IVPB DAILY@1600 [facility] Metoclopramide HCl (Reglan Injection -) 10 mg IVPUSH Q6H [facility] Last Admin: 10/18/19 11:38 Dose: 10 mg Ondansetron HCl (Zofran Injection) 4 mg IVPUSH Q6H PRN PRN Reason: NAUSEA Last Admin: 10/10/19 09:54 Dose: 4 mg Pantoprazole Sodium (Protonix Iv) 40 mg IVPUSH DAILY [facility] Last Admin: 10/18/19 11:17 Dose: 40 mg Simethicone (Mylicon -) 80 mg PO QID PRN PRN Reason: DYSPEPSIA Last Admin: 10/09/19 20:35 Dose: 80 mg 73 year old Gentleman with history of Quadriplegia, neurogenic bladder with SPC , hypertension, DM who presented with recurrent sigmoid volvolus s/p Hartmans procedure with worsening renal function. 1. Acute kidney injury likely due to hypovolemia 2. Recurrent sigmoid volvolus s/p Hartmans procedure 3. Neurogenic bladder 4. Hypernatremia 5. Anemia 6. Prolonged NPO now requiring TPN BUN very high, likely related to hyperalimentation from TPN +/- Hypovolemia ( low BP) will decrease protein content in TPN Give NS bolous x 1 L today Trend electrolyte daily started on clear liquid diet as per surgery Arias Eubanks DO
[2019-10-18] MEDS ORDERED: PT OWN MED DRAWER 7, Y5N ONE (21:47)
[2019-10-18] MEDS: FAT EMULSIONS 250 ML IV SCH (21:51)
[2019-10-19] MEDS: METOCLOPRAMIDE HCL INJECTION 10 MG/2 ML VIAL IVPUSH SCH ×4 (00:23→17:32)
[2019-10-19] MEDS: HEPARIN NA (PORCINE) 5,000 UNITS/ML 1ML VIAL SQ SCH ×3 (06:19→23:00)
[2019-10-19 08:55] LABS: BASO % 0.7 % (0-2.0); EOS % 7.3 % (0-4.5); HEMOGLOBIN 8.7 GM/dL (11.7-16.9); MCH 26.9 pg (25.7-33.7); MCHC 32.1 g/dl (32.0-35.9); MEAN CELL VOLUME 83.7 fl (80-96); MEAN PLT VOLUME 7.1 fl (7.5-11.1); MONO % 9.6 % (3.8-10.2); NEUT % 69.4 % (42.8-82.8); PLATELET COUNT 432 K/MM3 (134-434); RBC 3.22 M/mm3 (4.00-5.60); RDW 15.1 % (11.9-15.9); WHITE BLOOD COUNT 9.8 K/mm3 (4.0-10.0)
[2019-10-19 09:45] LABS: ALBUMIN 1.7 g/dl (3.4-5.0); BILIRUBIN,TOTAL 0.1 mg/dL (0.2-1); CALCIUM 8.1 mg/dL (8.5-10.1); CREATININE 1.4 mg/dL (0.55-1.3); MAGNESIUM 2.1 mg/dL (1.8-2.4); PHOSPHOROUS 3.4 mg/dL (2.5-4.9); POTASSIUM 4.5 mmol/L (3.5-5.1); TOT PROT 6.3 g/dl (6.4-8.2)
[2019-10-19 10:01] LABS: BLOOD UREA NITROGEN 136.3 mg/dL (7-18)
[2019-10-19] MEDS: PANTOPRAZOLE SODIUM 40 MG VIAL IVPUSH SCH (10:12)
--- NOTE | 2019-10-19 10:43 | PN ---
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 NGT removed 2 days ago tolerating clear liquids Complaining of gas pains + Flatus in colostomy+ Stool - Current Medication List Current Medications: Active Medications Acetaminophen (Ofirmev Injection -) 1,000 mg IVPB Q6H PRN PRN Reason: PAIN Last Admin: 10/15/19 09:03 Dose: 1,000 mg Benzocaine/Menthol (Cepacol Lozenge -) 1 each MM PRN PRN PRN Reason: SORE THROAT Last Admin: 10/01/19 18:37 Dose: 1 each Heparin Sodium (Porcine) (Heparin -) 5,000 unit SQ TID [facility] Last Admin: 10/19/19 06:19 Dose: 5,000 unit Fat Emulsion Intravenous (Intralipid -) 250 mls @ 20.833 mls/hr IV DAILY@2200 [facility] Last Admin: 10/18/19 21:51 Dose: 20.833 mls/hr Potassium Phosphate 15 mm/Thiamine HCl 100 mg/Multivitamins/Minerals 10 ml/ Potassium Acetate 10 meq/Sterile Water/ Amino Acids/Dextrose 1,300 mls @ 54.17 mls/hr IVPB DAILY@1600 [facility] Last Admin: 10/18/19 18:00 Dose: 54.17 mls/hr Metoclopramide HCl (Reglan Injection -) 10 mg IVPUSH Q6H [facility] Last Admin: 10/19/19 06:18 Dose: 10 mg Ondansetron HCl (Zofran Injection) 4 mg IVPUSH Q6H PRN PRN Reason: NAUSEA Last Admin: 10/10/19 09:54 Dose: 4 mg Pantoprazole Sodium (Protonix Iv) 40 mg IVPUSH DAILY [facility] Last Admin: 10/19/19 10:12 Dose: 40 mg Simethicone (Mylicon -) 80 mg PO QID PRN PRN Reason: DYSPEPSIA Last Admin: 10/09/19 20:35 Dose: 80 mg - Objective Vital Signs: Vital Signs Temperature 98.5 F 10/19/19 05:55 Pulse Rate 88 10/19/19 05:55 Respiratory Rate 18 10/19/19 05:55 Blood Pressure 107/48 L 10/19/19 05:55 O2 Sat by Pulse Oximetry (%) 100 10/18/19 21:00 Constitutional: Yes: No Distress, Calm, Cachectic Cardiovascular: Yes: Regular Rate and Rhythm Respiratory: Yes: Regular Gastrointestinal: Yes: Normal Bowel Sounds, Soft, Other (LLQ ostomy + flatus+ stool) Musculoskeletal: Yes: WNL Extremities: Yes: WNL Edema: No Peripheral Pulses WNL: Yes Neurological: Yes: Alert, Oriented Psychiatric: Yes: Alert, Oriented Labs: CBC, BMP 10/19/19 06:00 10/19/19 06:00 INR, PTT INR 1.18 (0.83-1.09) H 09/29/19 09:37 Problem List - Problems (1) Elevated BUN Assessment/Plan: -Nephrology on board -Hold TPN for today -IVF LR at 83cc/hr -repeat labs in AM Problems reviewed: Yes Code(s): R79.9 - ABNORMAL FINDING OF BLOOD CHEMISTRY, UNSPECIFIED Assessment/Plan (1) Abdominal pain Assessment/Plan: -GI and Surgery on board -pain control -Tolerating clear liquids--> advance diet to full liquids -Hold TPN -Has PICC line Code(s): R10.9 - UNSPECIFIED ABDOMINAL PAIN Qualifiers: Abdominal location: generalized Qualified Code(s): R10.84 - Generalized abdominal pain (2) Functional quadriplegia Assessment/Plan: -PT -Fall risk precaution Code(s): R53.2 - FUNCTIONAL QUADRIPLEGIA (3) Sigmoid volvulus Assessment/Plan: -GI and Surgery on board -Repeat CT abd/pel showed SBO---> last abd xray resolution -pain control -Rectal tube in for decompression -S/P sigmoid colectomy with end colostomy -Incentive spirometer -pain control Code(s): K56.2 - VOLVULUS (4) Stage 4 decubitus ulcer Assessment/Plan: -Vascular on board -reposition q2h -air mattress -drawsheets and Trendelenburg when repositioning to avoid friction and shear -manage incontinence in timely manner -offloading -pack sacral wound with moist kerlix and apply dressing -no surgical debridement at this time Code(s): L89.94 - PRESSURE ULCER OF UNSPECIFIED SITE, STAGE 4 (5) Abdominal distension Assessment/Plan: -GI and Surgery on board -Serial Abdominal exams Code(s): R14.0 - ABDOMINAL DISTENSION (GASEOUS) (6) Anemia Assessment/Plan: -transfuse for Hg <7.0 to avoid fluid overload -Anemia panel show low Fe and TIBC -MVI Code(s): D64.9 - ANEMIA, UNSPECIFIED (7) HTN (hypertension) Assessment/Plan: -monitor BP -low Na diet Code(s): I10 - ESSENTIAL (PRIMARY) HYPERTENSION (8) Neurogenic bladder Assessment/Plan: -Urology on board -recommend suprapubic catheter change prior to discharge Code(s): N31.9 - NEUROMUSCULAR DYSFUNCTION OF BLADDER, UNSPECIFIED (9) UTI (urinary tract infection) Assessment/Plan: -ID on board -UA shows 3+ leuks, 3+ blood, 3+ -UC neg -leukocytosis -afebrile -no antibiotic intervention at present, observe off Code(s): N39.0 - URINARY TRACT INFECTION, SITE NOT SPECIFIED Qualifiers: Hematuria presence: with hematuria (10) Hypernatremia Assessment/Plan: -Renal on board -monitor Na level daily Code(s): E87.0 - HYPEROSMOLALITY AND HYPERNATREMIA (11) Ileus, unspecified Assessment/Plan: -CT abd/pelvis + SBO -Hold TPN today -Clear liquids-->advance to full liquids -GI on board Code(s): K56.7 - ILEUS, UNSPECIFIED
[2019-10-19] MEDS: LACTATED RINGERS SOLUTION 1,000 ML/1,000 ML INFUS.BAG IV SCH (12:14)
--- NOTE | 2019-10-19 14:34 | CONS ---
DATE OF CONSULTATION: DATE OF DICTATION: 10/19/2019 Patient is a 73-year-old, man with quadriplegia and neurogenic bladder, requiring suprapubic tube drainage. He also has a history of high blood pressure, diabetes. Presented with a sigmoid volvulus. He is status post a hemicolectomy and a Kimmie procedure. Patient presently has a BUN and creatinine of 136 over 1.4. His white count is 9800. He is afebrile. Rowe is patent; urine is clear. Urine cultures reveal no growth. PLAN: Will change suprapubic Rowe, today, and will recommend monthly changes. Will follow. Chloe [id number]
--- NOTE | 2019-10-19 14:35 | PN ---
Progress Note (short form) - Note Progress Note: POD#19 Vital Signs Period Temp Pulse Resp BP Sys/Bradley Pulse Ox Last 24 Hr 97.6 F-98.5 F 82-88 18-18 107-107/48-48 100 suprapubic tube-850 GEN: Alert and follow commands ABD: soft, non-distended, non-tender. Ostomy viable with flatus in the bag, ostomy pink Midline inc c/d/i with abelino to the mid abdomen. Inferior aspect healing well, pink granulation tissue CBC, BMP 10/14/19 06:25 10/14/19 06:25 A/P: 73 yo male s/p sigmoid resection with end colostomy Continue local wound care with wet to dry/ostomy care On clears and advanced to fulls, TPN being held. BUN elevated most likely to TPN, continue to monitor. D/w. Dr. Quintero
--- NOTE | 2019-10-19 15:38 | PN ---
Progress Note (short form) - Note Progress Note: Renal follow up for MARTINEZ Seen and examined at the bedside awake and alert passing gas no abd pain, fever, chills no N/V Vital Signs Temperature 97.6 F 10/19/19 14:36 Pulse Rate 92 H 10/19/19 14:36 Respiratory Rate 18 10/19/19 14:36 Blood Pressure 99/44 L 10/19/19 14:36 O2 Sat by Pulse Oximetry (%) 100 10/18/19 21:00 Intake & Output 10/16/19 10/17/19 10/18/19 10/19/19 23:59 23:59 23:59 23:59 Intake Total 788 804 3954 1650 Output Total 1100 2260 1000 1000 Balance -350 -1360 2260 650 NAD CTA soft NT/ND Abd no LE edema CBC, BMP 10/19/19 06:00 10/19/19 06:00 Current Medications Acetaminophen (Ofirmev Injection -) 1,000 mg IVPB Q6H PRN PRN Reason: PAIN Last Admin: 10/15/19 09:03 Dose: 1,000 mg Benzocaine/Menthol (Cepacol Lozenge -) 1 each MM PRN PRN PRN Reason: SORE THROAT Last Admin: 10/01/19 18:37 Dose: 1 each Heparin Sodium (Porcine) (Heparin -) 5,000 unit SQ TID [facility] Last Admin: 10/19/19 15:00 Dose: 5,000 unit Lactated Ringer's (Lactated Ringers Solution) 1,000 ml in 1,000 mls @ 83 mls/ hr IV ASDIR [facility] Last Admin: 10/19/19 12:14 Dose: 83 mls/hr Metoclopramide HCl (Reglan Injection -) 10 mg IVPUSH Q6H [facility] Last Admin: 10/19/19 12:15 Dose: 10 mg Ondansetron HCl (Zofran Injection) 4 mg IVPUSH Q6H PRN PRN Reason: NAUSEA Last Admin: 10/10/19 09:54 Dose: 4 mg Pantoprazole Sodium (Protonix Iv) 40 mg IVPUSH DAILY [facility] Last Admin: 10/19/19 10:12 Dose: 40 mg Simethicone (Mylicon -) 80 mg PO QID PRN PRN Reason: DYSPEPSIA Last Admin: 10/09/19 20:35 Dose: 80 mg 73 year old Gentleman with history of Quadriplegia, neurogenic bladder with SPC , hypertension, DM who presented with recurrent sigmoid volvolus s/p Hartmans procedure with worsening renal function. 1. Acute kidney injury likely due to hypovolemia 2. Recurrent sigmoid volvolus s/p Hartmans procedure 3. Neurogenic bladder 4. Hypernatremia 5. Anemia 6. Prolonged NPO now requiring TPN BUN very high, likely related to hyperalimentation from TPN +/- Hypovolemia ( low BP) will hold TPN overnight today Continue LR at 82cc per hour Trend electrolytes daily started on clear liquid diet as per surgery, advance as tolerated Arias Eubanks DO
[2019-10-20] MEDS: LACTATED RINGERS SOLUTION 1,000 ML/1,000 ML INFUS.BAG IV SCH ×2 (00:28→14:03)
[2019-10-20] MEDS: METOCLOPRAMIDE HCL INJECTION 10 MG/2 ML VIAL IVPUSH SCH ×4 (00:34→17:30)
[2019-10-20] MEDS: HEPARIN NA (PORCINE) 5,000 UNITS/ML 1ML VIAL SQ SCH ×3 (06:07→21:51)
[2019-10-20 09:29] LABS: BASO % 0.8 % (0-2.0); EOS % 7.5 % (0-4.5); HEMATOCRIT 27.8 % (35.4-49); HEMOGLOBIN 8.9 GM/dL (11.7-16.9); LYMPH % 8.6 % (8-40); MCH 26.6 pg (25.7-33.7); MCHC 31.9 g/dl (32.0-35.9); MEAN CELL VOLUME 83.3 fl (80-96); MEAN PLT VOLUME 7.1 fl (7.5-11.1); MONO % 9.2 % (3.8-10.2); NEUT % 73.9 % (42.8-82.8); PLATELET COUNT 423 K/MM3 (134-434); RBC 3.34 M/mm3 (4.00-5.60); RDW 14.9 % (11.9-15.9); WHITE BLOOD COUNT 9.5 K/mm3 (4.0-10.0)
[2019-10-20 09:57] LABS: ALBUMIN 1.8 g/dl (3.4-5.0); BILIRUBIN,TOTAL 0.2 mg/dL (0.2-1); CALCIUM 8.5 mg/dL (8.5-10.1); CREATININE 1.3 mg/dL (0.55-1.3); PHOSPHOROUS 3.1 mg/dL (2.5-4.9); POTASSIUM 4.5 mmol/L (3.5-5.1); TOT PROT 6.1 g/dl (6.4-8.2)
[2019-10-20 10:01] LABS: BLOOD UREA NITROGEN 108.8 mg/dL (7-18)
[2019-10-20] MEDS: PANTOPRAZOLE SODIUM 40 MG VIAL IVPUSH SCH (10:50)
--- NOTE | 2019-10-20 11:30 | PN ---
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 tolerating Full liquids -still c/o diffuse abdominal pain + Flatus in colostomy+ Stool Spoke to daughter yesterday about LTAC, wants to discuss with her father to convince him, otherwise, if pt goes home,pt has 24 hr care at home and daughter is willing to help as well. - Current Medication List Current Medications: Active Medications Acetaminophen (Ofirmev Injection -) 1,000 mg IVPB Q6H PRN PRN Reason: PAIN Last Admin: 10/15/19 09:03 Dose: 1,000 mg Benzocaine/Menthol (Cepacol Lozenge -) 1 each MM PRN PRN PRN Reason: SORE THROAT Last Admin: 10/01/19 18:37 Dose: 1 each Heparin Sodium (Porcine) (Heparin -) 5,000 unit SQ TID [facility] Last Admin: 10/20/19 06:07 Dose: 5,000 unit Lactated Ringer's (Lactated Ringers Solution) 1,000 ml in 1,000 mls @ 83 mls/ hr IV ASDIR [facility] Last Admin: 10/20/19 00:28 Dose: 83 mls/hr Metoclopramide HCl (Reglan Injection -) 10 mg IVPUSH Q6H [facility] Last Admin: 10/20/19 06:08 Dose: 10 mg Ondansetron HCl (Zofran Injection) 4 mg IVPUSH Q6H PRN PRN Reason: NAUSEA Last Admin: 10/10/19 09:54 Dose: 4 mg Pantoprazole Sodium (Protonix Iv) 40 mg IVPUSH DAILY [facility] Last Admin: 10/20/19 10:50 Dose: 40 mg Simethicone (Mylicon -) 80 mg PO QID PRN PRN Reason: DYSPEPSIA Last Admin: 10/09/19 20:35 Dose: 80 mg - Objective Vital Signs: Vital Signs Temperature 97.4 F L 10/20/19 11:00 Pulse Rate 82 10/20/19 11:00 Respiratory Rate 18 10/20/19 11:00 Blood Pressure 103/60 10/20/19 11:00 O2 Sat by Pulse Oximetry (%) 100 10/19/19 21:00 Constitutional: Yes: No Distress, Calm, Cachectic Cardiovascular: Yes: Regular Rate and Rhythm Respiratory: Yes: Regular Gastrointestinal: Yes: Soft, Distention (mild), Hypoactive Bowel Sounds, Tenderness (diffuse), Other (LLQ colostomy) Genitourinary: Yes: Other (supra-pubic catheter) Musculoskeletal: Yes: Other (generalized atrophy) Edema: No Peripheral Pulses WNL: Yes Integumentary: Yes: Incision (mid abdomen surgical incision), Pressure Ulcer Wound/Incision: Yes: Dressing Dry and Intact Neurological: Yes: Alert, Oriented Psychiatric: Yes: Alert, Oriented Labs: CBC, BMP 10/20/19 06:00 10/20/19 06:00 INR, PTT INR 1.18 (0.83-1.09) H 09/29/19 09:37 Problem List - Problems (1) Elevated BUN Assessment/Plan: -Nephrology on board -TPN on hold -BUN elevated 2/2 to TPN-much improved today -Continue IVF LR at 83cc/hr -Daily labs Problems reviewed: Yes Code(s): R79.9 - ABNORMAL FINDING OF BLOOD CHEMISTRY, UNSPECIFIED Assessment/Plan (1) Abdominal pain Assessment/Plan: -GI and Surgery on board -pain control -Tolerating full liquids-advance to soft diet -Hold TPN -Has PICC line Code(s): R10.9 - UNSPECIFIED ABDOMINAL PAIN Qualifiers: Abdominal location: generalized Qualified Code(s): R10.84 - Generalized abdominal pain (2) Functional quadriplegia Assessment/Plan: -PT -Fall risk precaution Code(s): R53.2 - FUNCTIONAL QUADRIPLEGIA (3) Sigmoid volvulus Assessment/Plan: -GI and Surgery on board -Repeat CT abd/pel showed SBO---> last abd xray resolution -pain control -S/P sigmoid colectomy with end colostomy -Incentive spirometer -pain control Code(s): K56.2 - VOLVULUS (4) Stage 4 decubitus ulcer Assessment/Plan: -Vascular on board -reposition q2h -air mattress -drawsheets and Trendelenburg when repositioning to avoid friction and shear -manage incontinence in timely manner -offloading -pack sacral wound with moist kerlix and apply dressing -no surgical debridement at this time -Wound consult with Dr Stewart Code(s): L89.94 - PRESSURE ULCER OF UNSPECIFIED SITE, STAGE 4 (5) Abdominal distension Assessment/Plan: -GI and Surgery on board -Serial Abdominal exams Code(s): R14.0 - ABDOMINAL DISTENSION (GASEOUS) (6) Anemia Assessment/Plan: -transfuse for Hg <7.0 to avoid fluid overload -Anemia panel show low Fe and TIBC -MVI Code(s): D64.9 - ANEMIA, UNSPECIFIED (7) HTN (hypertension) Assessment/Plan: -monitor BP -low Na diet Code(s): I10 - ESSENTIAL (PRIMARY) HYPERTENSION (8) Neurogenic bladder Assessment/Plan: -Urology on board -Supra-pubic catheter changed by Urology on 10/19/2019 Code(s): N31.9 - NEUROMUSCULAR DYSFUNCTION OF BLADDER, UNSPECIFIED (9) UTI (urinary tract infection) Assessment/Plan: -ID on board -UA shows 3+ leuks, 3+ blood, 3+ -UC neg -leukocytosis -afebrile -no antibiotic intervention at present, observe off Code(s): N39.0 - URINARY TRACT INFECTION, SITE NOT SPECIFIED Qualifiers: Hematuria presence: with hematuria (10) Hypernatremia Assessment/Plan: -Renal on board -monitor Na level daily Code(s): E87.0 - HYPEROSMOLALITY AND HYPERNATREMIA (11) Ileus, unspecified Assessment/Plan: -CT abd/pelvis + SBO -Hold TPN -Soft diet -GI on board Code(s): K56.7 - ILEUS, UNSPECIFIED D/C planning
[2019-10-20] MEDS: SIMETHICONE 80 MG TAB.CHEW (FP) PO SCH ×2 (14:04→21:51)
--- NOTE | 2019-10-20 15:40 | PN ---
Progress Note (short form) - Note Progress Note: POD#20 Last Vital Signs Temp Pulse Resp BP Pulse Ox 98.4 F 83 18 101/50 L 100 10/20/19 14:49 10/20/19 14:49 10/20/19 14:49 10/20/19 14:49 10/20/19 09:00 CBC, BMP 10/20/19 06:00 10/20/19 06:00 GEN: Alert and follow commands ABD: soft, non-distended, non-tender. Ostomy viable with flatus in the bag, ostomy pink Midline inc c/d/i to the mid abdomen. Inferior aspect healing well,pink granulation tissue Problem List - Problems (1) Sigmoid volvulus Assessment/Plan: A/P: 73 yo male s/p sigmoid resection with end colostomy Continue local wound care with wet to dry/ostomy care, abelino removed yesterday. Advance to soft diet TPN being held. BUN elevated most likely to TPN, continue to monitor. D/w. Dr. Quintero Code(s): K56.2 - VOLVULUS
--- NOTE | 2019-10-20 17:41 | PN ---
Progress Note (short form) - Note Progress Note: Renal follow up for MARTINEZ Seen and examined at the bedside awake and alert has mild abdominal pain making stool via the ostomy making urine Vital Signs Temperature 98.4 F 10/20/19 14:49 Pulse Rate 83 10/20/19 14:49 Respiratory Rate 18 10/20/19 14:49 Blood Pressure 101/50 L 10/20/19 14:49 O2 Sat by Pulse Oximetry (%) 100 10/20/19 09:00 Intake & Output 10/17/19 10/18/19 10/19/19 10/20/19 23:59 23:59 23:59 23:59 Intake Total 900 3260 2480 1380 Output Total 2260 1000 1000 1700 Balance -1360 2260 1480 -320 NAD CTA soft NT/ND Abd no LE edema CBC, BMP 10/20/19 06:00 10/20/19 06:00 Current Medications Acetaminophen (Ofirmev Injection -) 1,000 mg IVPB Q6H PRN PRN Reason: PAIN Last Admin: 10/15/19 09:03 Dose: 1,000 mg Benzocaine/Menthol (Cepacol Lozenge -) 1 each MM PRN PRN PRN Reason: SORE THROAT Last Admin: 10/01/19 18:37 Dose: 1 each Heparin Sodium (Porcine) (Heparin -) 5,000 unit SQ TID [facility] Last Admin: 10/20/19 14:03 Dose: 5,000 unit Lactated Ringer's (Lactated Ringers Solution) 1,000 ml in 1,000 mls @ 83 mls/ hr IV ASDIR [facility] Last Admin: 10/20/19 14:03 Dose: 83 mls/hr Metoclopramide HCl (Reglan Injection -) 10 mg IVPUSH Q6H [facility] Last Admin: 10/20/19 17:30 Dose: 10 mg Ondansetron HCl (Zofran Injection) 4 mg IVPUSH Q6H PRN PRN Reason: NAUSEA Last Admin: 10/10/19 09:54 Dose: 4 mg Pantoprazole Sodium (Protonix Iv) 40 mg IVPUSH DAILY [facility] Last Admin: 10/20/19 10:50 Dose: 40 mg Simethicone (Mylicon -) 80 mg PO TID [facility] Last Admin: 10/20/19 14:04 Dose: 80 mg 73 year old Gentleman with history of Quadriplegia, neurogenic bladder with SPC , hypertension, DM who presented with recurrent sigmoid volvolus s/p Hartmans procedure with worsening renal function. 1. Acute kidney injury likely due to hypovolemia 2. Recurrent sigmoid volvolus s/p Hartmans procedure 3. Neurogenic bladder 4. Hypernatremia 5. Anemia 6. Prolonged NPO now requiring TPN BUN very high, likely related to hyperalimentation from TPN +/- Hypovolemia ( low BP) BUN improving off TPN continue LR diet being advanced by surgery so no TPN indicated at this time Trend electrolytes daily Arias Eubanks DO
[2019-10-21] MEDS: METOCLOPRAMIDE HCL INJECTION 10 MG/2 ML VIAL IVPUSH SCH ×4 (00:44→17:35)
[2019-10-21] MEDS: LACTATED RINGERS SOLUTION 1,000 ML/1,000 ML INFUS.BAG IV SCH ×2 (02:38→12:20)
[2019-10-21] MEDS: SIMETHICONE 80 MG TAB.CHEW (FP) PO SCH ×3 (05:46→21:52)
[2019-10-21] MEDS: HEPARIN NA (PORCINE) 5,000 UNITS/ML 1ML VIAL SQ SCH ×3 (05:46→21:51)
[2019-10-21 07:56] LABS: BASO % 0.6 % (0-2.0); EOS % 6.3 % (0-4.5); HEMATOCRIT 26.2 % (35.4-49); HEMOGLOBIN 8.3 GM/dL (11.7-16.9); LYMPH % 14.3 % (8-40); MCH 26.8 pg (25.7-33.7); MCHC 31.9 g/dl (32.0-35.9); MEAN PLT VOLUME 6.7 fl (7.5-11.1); MONO % 10.9 % (3.8-10.2); NEUT % 67.9 % (42.8-82.8); PLATELET COUNT 431 K/MM3 (134-434); RBC 3.12 M/mm3 (4.00-5.60)
--- NOTE | 2019-10-21 08:13 | PN ---
Progress Note, Physician Chief Complaint: Abdominal Pain Sigmoid Volvulus History of Present Illness: Previous notes and events reviewed awake and alert NAD BUN/Cr showing downtrend since TPN on hold no reports of nausea/vomiting tolerating soft diet stool in colostomy gas, + flatus suprapubic catheter changed by Urology yesterday - Current Medication List Current Medications: Active Medications Acetaminophen (Ofirmev Injection -) 1,000 mg IVPB Q6H PRN PRN Reason: PAIN Last Admin: 10/15/19 09:03 Dose: 1,000 mg Benzocaine/Menthol (Cepacol Lozenge -) 1 each MM PRN PRN PRN Reason: SORE THROAT Last Admin: 10/01/19 18:37 Dose: 1 each Heparin Sodium (Porcine) (Heparin -) 5,000 unit SQ TID [facility] Last Admin: 10/21/19 05:46 Dose: 5,000 unit Lactated Ringer's (Lactated Ringers Solution) 1,000 ml in 1,000 mls @ 83 mls/ hr IV ASDIR [facility] Last Admin: 10/21/19 02:38 Dose: 83 mls/hr Metoclopramide HCl (Reglan Injection -) 10 mg IVPUSH Q6H [facility] Last Admin: 10/21/19 05:46 Dose: 10 mg Ondansetron HCl (Zofran Injection) 4 mg IVPUSH Q6H PRN PRN Reason: NAUSEA Last Admin: 10/10/19 09:54 Dose: 4 mg Pantoprazole Sodium (Protonix Iv) 40 mg IVPUSH DAILY [facility] Last Admin: 10/20/19 10:50 Dose: 40 mg Simethicone (Mylicon -) 80 mg PO TID [facility] Last Admin: 10/21/19 05:46 Dose: 80 mg - Objective Vital Signs: Vital Signs Temperature 98 F 10/21/19 05:39 Pulse Rate 83 10/21/19 05:39 Respiratory Rate 18 10/21/19 05:39 Blood Pressure 102/52 L 10/21/19 05:39 O2 Sat by Pulse Oximetry (%) 100 10/20/19 21:00 Constitutional: Yes: No Distress, Calm Eyes: Yes: Conjunctiva Clear HENT: Yes: Atraumatic Cardiovascular: Yes: Regular Rate and Rhythm Respiratory: Yes: Regular, Diminished Gastrointestinal: Yes: Normal Bowel Sounds, Soft, Other (colostomy) Genitourinary: Yes: Other (suprapubic catheter) Musculoskeletal: Yes: Muscle Weakness Extremities: Yes: WNL Edema: No Neurological: Yes: Alert, Pre-Existing Deficit Psychiatric: Yes: Alert Labs: INR, PTT INR 1.18 (0.83-1.09) H 09/29/19 09:37 Microbiology 09/23/19 06:00 Wound Gram Stain - Final 09/23/19 06:00 Wound Wound Culture - Final 09/22/19 21:40 Urine - Urine Rowe Urine Culture - Final NO GROWTH OBTAINED Problem List - Problems (1) Abdominal pain Assessment/Plan: -GI and Surgery on board -CTAP shows moderate gasseous distention of a tortuous sigmoid colon, possibility of intermittent volvulus should be considered, inflammatory changes about the distal sigmoid and rectum suspicious for proctitis, suprapubic cystostomy tube with thickened urinary bladder, cystitis cannot be excluded cholelithiasis with no evidence of acute cholecystitis -Serial Abdominal xrays with lastest from 09/26/19 showing some decompression of sigmoid since 09/24/19 -pain control -Abdominal Xray shows persistent SBO -SBO resolved, NGT removed Code(s): R10.9 - UNSPECIFIED ABDOMINAL PAIN Qualifiers: Abdominal location: generalized Qualified Code(s): R10.84 - Generalized abdominal pain (2) Functional quadriplegia Assessment/Plan: -PT -Fall risk precaution Code(s): R53.2 - FUNCTIONAL QUADRIPLEGIA (3) Sigmoid volvulus Assessment/Plan: -GI and Surgery on board -CTAP shows moderate gasseous distention of a tortuous sigmoid colon, possibility of intermittent volvulus should be considered, inflammatory changes about the distal sigmoid and rectum suspicious for proctitis, suprapubic cystostomy tube with thickened urinary bladder, cystitis cannot be excluded cholelithiasis with no evidence of acute cholecystitis -Serial Abdominal xrays with lastest from 09/26/19 showing some decompression of sigmoid since 09/24/19 -pain control -Rectal tube in for decompression -POD#21 sigmoid colectomy with end colostomy -Incentive spirometer -pain control Code(s): K56.2 - VOLVULUS (4) Stage 4 decubitus ulcer Assessment/Plan: -Vascular on board -reposition q2h -air mattress -drawsheets and Trendelenburg when repositioning to avoid friction and shear -manage incontinence in timely manner -offloading -pack sacral wound with moist kerlix and apply dressing -no surgical debridement at this time -pending consult from Plastic Surgery Code(s): L89.94 - PRESSURE ULCER OF UNSPECIFIED SITE, STAGE 4 (5) Abdominal distension Assessment/Plan: -GI and Surgery on board -CTAP shows moderate gasseous distention of a tortuous sigmoid colon, possibility of intermittent volvulus should be considered, inflammatory changes about the distal sigmoid and rectum suspicious for proctitis, suprapubic cystostomy tube with thickened urinary bladder, cystitis cannot be excluded cholelithiasis with no evidence of acute cholecystitis -Serial Abdominal xrays with lastest from 09/26/19 showing some decompression of sigmoid since 09/24/19 -Abdominal Xray shows persistent SBO -NGT discontinued -SBO resolved Code(s): R14.0 - ABDOMINAL DISTENSION (GASEOUS) (6) Anemia Assessment/Plan: -Hg 8.3 -transfuse for Hg <7.0 to avoid fluid overload -Anemia panel show low Fe and TIBC -MVI Code(s): D64.9 - ANEMIA, UNSPECIFIED (7) HTN (hypertension) Assessment/Plan: -monitor BP -low Na diet Code(s): I10 - ESSENTIAL (PRIMARY) HYPERTENSION (8) Neurogenic bladder Assessment/Plan: -Urology on board -suprapubic catheter changed yesterday by Urology Code(s): N31.9 - NEUROMUSCULAR DYSFUNCTION OF BLADDER, UNSPECIFIED (9) UTI (urinary tract infection) Assessment/Plan: -ID on board -UA shows 3+ leuks, 3+ blood, 3+ -UC neg -leukocytosis -afebrile -no antibiotic intervention at present, observe off Code(s): N39.0 - URINARY TRACT INFECTION, SITE NOT SPECIFIED Qualifiers: Hematuria presence: with hematuria (10) Hypernatremia Assessment/Plan: -Na 141 -Renal on board -monitor Na level daily Code(s): E87.0 - HYPEROSMOLALITY AND HYPERNATREMIA (11) Ileus, unspecified Assessment/Plan: -Abdominal Xray shows persistent SBO -NGT removed -pending repeat Abdominal Xray results -soft diet -SBO resolved -GI on board Code(s): K56.7 - ILEUS, UNSPECIFIED (12) Elevated BUN Assessment/Plan: -BUN/Cr 76.9/1.3 -improving after TPN held -Renal on board -continue with IV hydration Code(s): R79.9 - ABNORMAL FINDING OF BLOOD CHEMISTRY, UNSPECIFIED Assessment/Plan see problem list dvt ppx
[2019-10-21 08:32] LABS: ALBUMIN 1.7 g/dl (3.4-5.0); BILIRUBIN,TOTAL 0.3 mg/dL (0.2-1); BLOOD UREA NITROGEN 76.9 mg/dL (7-18); CALCIUM 8.3 mg/dL (8.5-10.1); CREATININE 1.3 mg/dL (0.55-1.3); POTASSIUM 4.3 mmol/L (3.5-5.1); TOT PROT 5.8 g/dl (6.4-8.2)
--- NOTE | 2019-10-21 08:38 | PN ---
Progress Note (short form) - Note Progress Note: GENERAL SURGERY POD #21 s/p Kimmie Procedure Awake. No complaints. Resting comfortably. Started on soft diet yesterday and tolerated. Ravena removed by Dr. Quintero. Denies n/v/f/c, CP, palpitatons, SOB or SANDERS. Afeb. AVSS BUN/CR: 76.9/1.3 (108/1.3) PE GEN: nad ABD: soft; flat; nontender; wound intact; ostomy w/gas and stool Problem List - Problems (1) Status post Kimmie procedure Assessment/Plan: BUN/Cr improving since off TPN --> cont to trend Renal f/u Advance diet as tolerated DVT PPX Ostomy care No further surgical intervention. Cont care per primary team Above plan discussed with Dr. Quintero and agrees. Code(s): Z93.3 - COLOSTOMY STATUS (2) Stage 4 decubitus ulcer Code(s): L89.94 - PRESSURE ULCER OF UNSPECIFIED SITE, STAGE 4 (3) Abdominal pain Code(s): R10.9 - UNSPECIFIED ABDOMINAL PAIN Qualifiers: Abdominal location: generalized Qualified Code(s): R10.84 - Generalized abdominal pain (4) Suprapubic catheter Code(s): Z93.59 - OTHER CYSTOSTOMY STATUS (5) Functional quadriplegia Code(s): R53.2 - FUNCTIONAL QUADRIPLEGIA (6) Neurogenic bladder Code(s): N31.9 - NEUROMUSCULAR DYSFUNCTION OF BLADDER, UNSPECIFIED (7) UTI (urinary tract infection) Code(s): N39.0 - URINARY TRACT INFECTION, SITE NOT SPECIFIED Qualifiers: Hematuria presence: with hematuria
[2019-10-21] MEDS: PANTOPRAZOLE SODIUM 40 MG VIAL IVPUSH SCH (09:55)
--- NOTE | 2019-10-21 15:51 | CONSULT ---
Consult Consult Specialty:: Plastic surgery Referred by:: Dr Trent Reason for Consultation:: GradeIV Sacral decubitus - History of Present Illness Chief Complaint: Patient admitted for Intestinal Obstruction, Increase Urinary problem High BUN - History Source History Provided By: Medical Record - Past Medical History [employer]: Yes: Other (Quadriplegia) Cardio/Vascular: Yes: HTN Renal/: Yes: Hematuria, Neurogenic Bladder Infectious Disease: Yes: Other (ESBL/Pseudomonas- Urine) Musculoskeletal: Yes: Other (Quadriplegia) Endocrine: Yes: Diabetes Mellitus - Past Surgical History Additional Surgical History: Abdominal surgery (unclear indication. ? laparoscopy) - Alcohol/Substance Use Hx Alcohol Use: No History of Substance Use: reports: None - Smoking History Smoking history: Smoker current status UNK Have you smoked in the past 12 months: No - Social History Usual Living Arrangement: [facility] ADL: Support Services History of Recent Travel: No Home Medications - Allergies Allergies/Adverse Reactions: Allergies Allergy/AdvReac Type Severity Reaction Status Date / Time ciprofloxacin Allergy Verified 09/22/19 20:52 piperacillin [From Zosyn] Allergy Verified 09/22/19 20:52 tazobactam [From Zosyn] Allergy Verified 09/22/19 20:52 Penicillins AdvReac Verified 09/22/19 20:52 - Home Medications Home Medications: Ambulatory Orders Gabapentin 100 mg PO PRN PRN 06/06/19 Omeprazole 20 mg PO DAILY 06/06/19 Acetaminophen [Tylenol .Regular Strength -] 650 mg PO Q6H PRN tablet 06/21/19 Heparin - 5,000 unit SQ TID vial 06/21/19 Aa/Hydrolyzed Collagen, Whey [Lps 15-30 Liquid] 30 ml PO BID 08/31/19 Ascorbic Acid [Vitamin C] 500 mg PO DAILY 08/31/19 Calcium (Oyster Shell) [Os-Luis 500MG -] 500 mg PO DAILY 08/31/19 Miconazole Nitrate [Secura Antifungal] 92 gm TP BID 08/31/19 Multivitamin [Multiple Vitamins] 1 each PO DAILY 08/31/19 Nystatin Powder [Nystop Powder -] 15 gm TP BID 08/31/19 Travoprost [Travatan Z] 5 ml OP HS 08/31/19 Zinc Oxide 20% Topical Oint 454 gm TP TID 08/31/19 Ferrous Sulfate 325 mg PO DAILY 12/12/19 Amino Acids/Protein Hydrolys [Prosource No Carb Liquid Pkt] 30 ml PO BID@0800, 1730 packet 10/04/19 Physical Exam Vital Signs: Vital Signs Temperature 97.8 F 10/21/19 14:41 Pulse Rate 79 10/21/19 14:41 Respiratory Rate 18 10/21/19 14:41 Blood Pressure 117/58 L 10/21/19 14:41 O2 Sat by Pulse Oximetry (%) 100 10/21/19 09:00 Labs: CBC, BMP 10/21/19 06:49 10/21/19 06:49 Assessment/Plan Patient seen regarding Sacral decubitus As per Nursing staff, sacral wound is responding since faecal contamination has been diverted//Colostomy, supra Pubic Catheter . Patient on Air Mattress Aqua Max Pump attached to Mattress Wound care : NSS Gauze Twice a day Patient was on VAC at [facility] Labs Noted: High BUN, Hig Alkaline Pos, very low albumin Was on TPN but raised BUN, D/C Laboratory Tests 10/20/19 10/21/19 10/21/19 06:00 06:49 06:49 WBC 8.0 RBC 3.12 L Hgb 8.3 L Hct 26.2 L MCHC 31.9 L MPV 6.7 L Lymphocytes % 14.3 D Monocytes % 10.9 H Eosinophils % 6.3 H Sodium 139 141 Potassium 4.5 4.3 Chloride 109 H 112 H BUN 108.8 H* 76.9 H Creatinine 1.3 1.3 ALT 89 H 57 Alkaline Phosphatase 232 H 183 H Total Protein 6.1 L 5.8 L Albumin 1.8 L 1.7 L Plan : Pro stat Bid Continue Present wound care Low Pressure Mattress Nutrition support
[2019-10-21] MEDS ORDERED: LACTATED RINGERS SOLUTION 1,000 ML/1,000 ML INFUS.BAG IV SCH (15:58)
--- NOTE | 2019-10-21 15:58 | PN ---
Progress Note (short form) - Note Progress Note: Renal follow up for MARTINEZ Seen and examined at the bedside awake and alert still has mild abdominal discomfort tolerating enteral feeds making urine Vital Signs Temperature 97.8 F 10/21/19 14:41 Pulse Rate 79 10/21/19 14:41 Respiratory Rate 18 10/21/19 14:41 Blood Pressure 117/58 L 10/21/19 14:41 O2 Sat by Pulse Oximetry (%) 100 10/21/19 09:00 Intake & Output 10/18/19 10/19/19 10/20/19 10/21/19 23:59 23:59 23:59 23:59 Intake Total 3260 2480 1430 680 Output Total 1000 1000 2100 900 Balance 2260 1480 -670 -220 NAD CTA soft NT/ND Abd no LE edema CBC, BMP 10/21/19 06:49 10/21/19 06:49 Current Medications Acetaminophen (Ofirmev Injection -) 1,000 mg IVPB Q6H PRN PRN Reason: PAIN Last Admin: 10/15/19 09:03 Dose: 1,000 mg Amino Acids (Prosource No Carb Liquid Pkt) 30 ml PO BID@0800,1730 [facility] Benzocaine/Menthol (Cepacol Lozenge -) 1 each MM PRN PRN PRN Reason: SORE THROAT Last Admin: 10/01/19 18:37 Dose: 1 each Heparin Sodium (Porcine) (Heparin -) 5,000 unit SQ TID [facility] Last Admin: 10/21/19 14:08 Dose: 5,000 unit Lactated Ringer's (Lactated Ringers Solution) 1,000 ml in 1,000 mls @ 83 mls/ hr IV ASDIR [facility] Last Admin: 10/21/19 12:20 Dose: 83 mls/hr Metoclopramide HCl (Reglan Injection -) 10 mg IVPUSH Q6H [facility] Last Admin: 10/21/19 12:20 Dose: 10 mg Ondansetron HCl (Zofran Injection) 4 mg IVPUSH Q6H PRN PRN Reason: NAUSEA Last Admin: 10/10/19 09:54 Dose: 4 mg Pantoprazole Sodium (Protonix Iv) 40 mg IVPUSH DAILY [facility] Last Admin: 10/21/19 09:55 Dose: 40 mg Simethicone (Mylicon -) 80 mg PO TID [facility] Last Admin: 10/21/19 14:08 Dose: 80 mg 73 year old Gentleman with history of Quadriplegia, neurogenic bladder with SPC , hypertension, DM who presented with recurrent sigmoid volvolus s/p Hartmans procedure with worsening renal function. 1. Acute kidney injury likely due to hypovolemia 2. Recurrent sigmoid volvolus s/p Hartmans procedure 3. Neurogenic bladder 4. Hypernatremia 5. Anemia 6. Prolonged NPO now requiring TPN Renal function stable BUN improving now that he is off TPN continue oral feeds will add oral prostat BID continue LR at lower rate for additional 24 hours diet being advanced by surgery so no TPN indicated at this time Trend electrolytes daily Arias Eubanks DO
[2019-10-21] MEDS: AMINO ACIDS/PROTEIN HYDROLYS 30 ML LIQUID.PKT PO SCH (17:23)
[2019-10-22] MEDS: METOCLOPRAMIDE HCL INJECTION 10 MG/2 ML VIAL IVPUSH SCH ×4 (00:09→17:30)
[2019-10-22] MEDS: HEPARIN NA (PORCINE) 5,000 UNITS/ML 1ML VIAL SQ SCH ×3 (06:00→22:00)
[2019-10-22] MEDS: SIMETHICONE 80 MG TAB.CHEW (FP) PO SCH ×3 (06:00→22:00)
[2019-10-22 08:10] LABS: BASO % 0.6 % (0-2.0); EOS % 7.6 % (0-4.5); HEMATOCRIT 25.3 % (35.4-49); HEMOGLOBIN 8.1 GM/dL (11.7-16.9); LYMPH % 15.1 % (8-40); MCH 26.8 pg (25.7-33.7); MCHC 32.1 g/dl (32.0-35.9); MEAN CELL VOLUME 83.4 fl (80-96); MEAN PLT VOLUME 6.7 fl (7.5-11.1); NEUT % 66.7 % (42.8-82.8); PLATELET COUNT 402 K/MM3 (134-434); RBC 3.04 M/mm3 (4.00-5.60); WHITE BLOOD COUNT 7.2 K/mm3 (4.0-10.0)
[2019-10-22] MEDS: AMINO ACIDS/PROTEIN HYDROLYS 30 ML LIQUID.PKT PO SCH ×2 (08:35→17:30)
[2019-10-22 08:45] LABS: ALBUMIN 1.6 g/dl (3.4-5.0); BILIRUBIN,TOTAL 0.2 mg/dL (0.2-1); CALCIUM 8.3 mg/dL (8.5-10.1); CREATININE 1.1 mg/dL (0.55-1.3); PHOSPHOROUS 2.5 mg/dL (2.5-4.9); POTASSIUM 4.3 mmol/L (3.5-5.1); TOT PROT 5.6 g/dl (6.4-8.2)
[2019-10-22] MEDS: PANTOPRAZOLE SODIUM 40 MG VIAL IVPUSH SCH (09:32)
--- NOTE | 2019-10-22 11:47 | PN ---
Progress Note, Physician - Current Medication List Current Medications: Active Medications Acetaminophen (Ofirmev Injection -) 1,000 mg IVPB Q6H PRN PRN Reason: PAIN Last Admin: 10/15/19 09:03 Dose: 1,000 mg Amino Acids (Prosource No Carb Liquid Pkt) 30 ml PO BID@0800,1730 [facility] Last Admin: 10/22/19 08:35 Dose: 30 ml Benzocaine/Menthol (Cepacol Lozenge -) 1 each MM PRN PRN PRN Reason: SORE THROAT Last Admin: 10/01/19 18:37 Dose: 1 each Heparin Sodium (Porcine) (Heparin -) 5,000 unit SQ TID [facility] Last Admin: 10/22/19 06:00 Dose: 5,000 unit Lactated Ringer's (Lactated Ringers Solution) 1,000 ml in 1,000 mls @ 70 mls/ hr IV ASDIR [facility] Stop: 10/22/19 12:00 Last Admin: 10/21/19 17:22 Dose: 70 mls/hr Metoclopramide HCl (Reglan Injection -) 10 mg IVPUSH Q6H [facility] Last Admin: 10/22/19 06:00 Dose: 10 mg Ondansetron HCl (Zofran Injection) 4 mg IVPUSH Q6H PRN PRN Reason: NAUSEA Last Admin: 10/10/19 09:54 Dose: 4 mg Pantoprazole Sodium (Protonix Iv) 40 mg IVPUSH DAILY [facility] Last Admin: 10/22/19 09:32 Dose: 40 mg Simethicone (Mylicon -) 80 mg PO TID [facility] Last Admin: 10/22/19 06:00 Dose: 80 mg - Objective Vital Signs: Vital Signs Temperature 97.8 F 10/22/19 10:00 Pulse Rate 81 10/22/19 10:00 Respiratory Rate 20 10/22/19 10:00 Blood Pressure 121/55 L 10/22/19 10:00 O2 Sat by Pulse Oximetry (%) 100 10/22/19 09:00 Cardiovascular: Yes: S1, S2 Respiratory: Yes: Regular, CTA Bilaterally Gastrointestinal: Yes: Soft, Distention Labs: CBC, BMP 10/22/19 07:30 10/22/19 07:30 INR, PTT INR 1.18 (0.83-1.09) H 09/29/19 09:37 Problem List - Problems (1) Abdominal distension Code(s): R14.0 - ABDOMINAL DISTENSION (GASEOUS) (2) Functional quadriplegia Code(s): R53.2 - FUNCTIONAL QUADRIPLEGIA (3) Stage 4 decubitus ulcer Code(s): L89.94 - PRESSURE ULCER OF UNSPECIFIED SITE, STAGE 4 (4) HTN (hypertension) Code(s): I10 - ESSENTIAL (PRIMARY) HYPERTENSION (5) Suprapubic catheter Code(s): Z93.59 - OTHER CYSTOSTOMY STATUS Assessment/Plan - Problems (1) Abdominal pain Assessment/Plan: -GI and Surgery on board -CTAP shows moderate gasseous distention of a tortuous sigmoid colon, possibility of intermittent volvulus should be considered, inflammatory changes about the distal sigmoid and rectum suspicious for proctitis, suprapubic cystostomy tube with thickened urinary bladder, cystitis cannot be excluded cholelithiasis with no evidence of acute cholecystitis -Serial Abdominal xrays with lastest from 09/26/19 showing some decompression of sigmoid since 09/24/19 -pain control -Abdominal Xray shows persistent SBO--follow up orederd -SBO resolved, NGT removed Code(s): R10.9 - UNSPECIFIED ABDOMINAL PAIN Qualifiers: Abdominal location: generalized Qualified Code(s): R10.84 - Generalized abdominal pain (2) Functional quadriplegia Assessment/Plan: -PT -Fall risk precaution Code(s): R53.2 - FUNCTIONAL QUADRIPLEGIA (3) Sigmoid volvulus Assessment/Plan: -GI and Surgery on board -CTAP shows moderate gasseous distention of a tortuous sigmoid colon, possibility of intermittent volvulus should be considered, inflammatory changes about the distal sigmoid and rectum suspicious for proctitis, suprapubic cystostomy tube with thickened urinary bladder, cystitis cannot be excluded cholelithiasis with no evidence of acute cholecystitis -Serial Abdominal xrays with lastest from 09/26/19 showing some decompression of sigmoid since 09/24/19 -pain control -Rectal tube in for decompression -POD#21 sigmoid colectomy with end colostomy -Incentive spirometer -pain control Code(s): K56.2 - VOLVULUS (4) Stage 4 decubitus ulcer Assessment/Plan: -Vascular on board -reposition q2h -air mattress -drawsheets and Trendelenburg when repositioning to avoid friction and shear -manage incontinence in timely manner -offloading -pack sacral wound with moist kerlix and apply dressing -no surgical debridement at this time -pending consult from Plastic Surgery Code(s): L89.94 - PRESSURE ULCER OF UNSPECIFIED SITE, STAGE 4 (5) Abdominal distension Assessment/Plan: -GI and Surgery on board -CTAP shows moderate gasseous distention of a tortuous sigmoid colon, possibility of intermittent volvulus should be considered, inflammatory changes about the distal sigmoid and rectum suspicious for proctitis, suprapubic cystostomy tube with thickened urinary bladder, cystitis cannot be excluded cholelithiasis with no evidence of acute cholecystitis -Serial Abdominal xrays with lastest from 09/26/19 showing some decompression of sigmoid since 09/24/19 -Abdominal Xray shows persistent SBO -NGT discontinued -SBO resolved Code(s): R14.0 - ABDOMINAL DISTENSION (GASEOUS) (6) Anemia Assessment/Plan: -Hg 8.3 -transfuse for Hg <7.0 to avoid fluid overload -Anemia panel show low Fe and TIBC -MVI Code(s): D64.9 - ANEMIA, UNSPECIFIED (7) HTN (hypertension) Assessment/Plan: -monitor BP -low Na diet Code(s): I10 - ESSENTIAL (PRIMARY) HYPERTENSION (8) Neurogenic bladder Assessment/Plan: -Urology on board -suprapubic catheter changed yesterday by Urology Code(s): N31.9 - NEUROMUSCULAR DYSFUNCTION OF BLADDER, UNSPECIFIED (9) UTI (urinary tract infection) Assessment/Plan: -ID on board -UA shows 3+ leuks, 3+ blood, 3+ -UC neg -leukocytosis -afebrile -no antibiotic intervention at present, observe off Code(s): N39.0 - URINARY TRACT INFECTION, SITE NOT SPECIFIED Qualifiers: Hematuria presence: with hematuria (10) Hypernatremia Assessment/Plan: -Na 141 -Renal on board -monitor Na level daily Code(s): E87.0 - HYPEROSMOLALITY AND HYPERNATREMIA (11) Ileus, unspecified Assessment/Plan: -Abdominal Xray shows persistent SBO -NGT removed -pending repeat Abdominal Xray results -soft diet -SBO resolved -GI on board Code(s): K56.7 - ILEUS, UNSPECIFIED (12) Elevated BUN Assessment/Plan: -BUN/Cr 76.9/1.3 -improving after TPN held -Renal on board -continue with IV hydration Code(s): R79.9 - ABNORMAL FINDING OF BLOOD CHEMISTRY, UNSPECIFIED
--- NOTE | 2019-10-22 19:20 | PN ---
Progress Note, Physician History of Present Illness: Pt seen and examined at bedside. He appears comfortable. - Current Medication List Current Medications: Active Medications Acetaminophen (Ofirmev Injection -) 1,000 mg IVPB Q6H PRN PRN Reason: PAIN Last Admin: 10/15/19 09:03 Dose: 1,000 mg Amino Acids (Prosource No Carb Liquid Pkt) 30 ml PO BID@0800,1730 [facility] Last Admin: 10/22/19 17:30 Dose: 30 ml Benzocaine/Menthol (Cepacol Lozenge -) 1 each MM PRN PRN PRN Reason: SORE THROAT Last Admin: 10/01/19 18:37 Dose: 1 each Heparin Sodium (Porcine) (Heparin -) 5,000 unit SQ TID [facility] Last Admin: 10/22/19 13:24 Dose: 5,000 unit Metoclopramide HCl (Reglan Injection -) 10 mg IVPUSH Q6H [facility] Last Admin: 10/22/19 17:30 Dose: 10 mg Ondansetron HCl (Zofran Injection) 4 mg IVPUSH Q6H PRN PRN Reason: NAUSEA Last Admin: 10/10/19 09:54 Dose: 4 mg Pantoprazole Sodium (Protonix Iv) 40 mg IVPUSH DAILY [facility] Last Admin: 10/22/19 09:32 Dose: 40 mg Simethicone (Mylicon -) 80 mg PO TID [facility] Last Admin: 10/22/19 13:24 Dose: 80 mg - Objective Vital Signs: Vital Signs Temperature 97.8 F 10/22/19 14:13 Pulse Rate 79 10/22/19 14:13 Respiratory Rate 10/22/19 14:13 Blood Pressure 101/51 L 10/22/19 14:13 O2 Sat by Pulse Oximetry (%) 100 10/22/19 09:00 Constitutional: Yes: Calm Eyes: Yes: Conjunctiva Clear HENT: Yes: Atraumatic Neck: Yes: Supple Cardiovascular: Yes: S1, S2 Respiratory: Yes: CTA Bilaterally Genitourinary: Yes: Rowe Present Musculoskeletal: Yes: Muscle Weakness Edema: No Neurological: Yes: Other (awake) Labs: CBC, BMP 10/22/19 07:30 10/22/19 07:30 INR, PTT INR 1.18 (0.83-1.09) H 09/29/19 09:37 Assessment/Plan Current Medications Generic Name Dose Route Start Last Admin Trade Name Freq PRN Reason Stop Dose Admin Acetaminophen 1,000 mg 10/11/19 11:40 10/15/19 09:03 Ofirmev Injection - IVPB 1,000 mg Q6H PRN Administration PAIN Amino Acids 30 ml 10/21/19 17:30 10/22/19 17:30 Prosource No Carb Liquid Pkt PO 30 ml BID@0800,1730 [facility] Administration Benzocaine/Menthol 1 each 10/01/19 11:02 10/01/19 18:37 Cepacol Lozenge - MM 1 each PRN PRN Administration SORE THROAT Heparin Sodium (Porcine) 5,000 unit 10/14/19 14:00 10/22/19 13:24 Heparin - SQ 5,000 unit TID [facility] Administration Metoclopramide HCl 10 mg 10/08/19 12:30 10/22/19 17:30 Reglan Injection - IVPUSH 10 mg Q6H [facility] Administration Ondansetron HCl 4 mg 10/10/19 08:37 10/10/19 09:54 Zofran Injection IVPUSH 4 mg Q6H PRN Administration NAUSEA Pantoprazole Sodium 40 mg 10/11/19 11:45 10/22/19 09:32 Protonix Iv IVPUSH 40 mg DAILY [facility] Administration Simethicone 80 mg 10/20/19 14:00 10/22/19 13:24 Mylicon - PO 80 mg TID [facility] Administration Impression 1. MARTINEZ 2. Recurrent sigmoid volvolus s/p Hartmans procedure 3. Neurogenic bladder 4. Hypernatremia 5. Anemia 6. Prolonged NPO now requiring TPN Plan - bun is improving - pt off of tpn - cont supplements - repeat labs in am - pt tolerating diet
[2019-10-23] MEDS: METOCLOPRAMIDE HCL INJECTION 10 MG/2 ML VIAL IVPUSH SCH ×4 (00:05→17:48)
[2019-10-23] MEDS: HEPARIN NA (PORCINE) 5,000 UNITS/ML 1ML VIAL SQ SCH ×3 (05:57→21:21)
[2019-10-23] MEDS: SIMETHICONE 80 MG TAB.CHEW (FP) PO SCH ×3 (05:57→21:21)
[2019-10-23 07:31] LABS: BASO % 0.6 % (0-2.0); EOS % 9.5 % (0-4.5); HEMATOCRIT 25.7 % (35.4-49); HEMOGLOBIN 8.2 GM/dL (11.7-16.9); LYMPH % 13.4 % (8-40); MCH 26.8 pg (25.7-33.7); MCHC 31.8 g/dl (32.0-35.9); MEAN CELL VOLUME 84.2 fl (80-96); MEAN PLT VOLUME 6.7 fl (7.5-11.1); MONO % 8.7 % (3.8-10.2); NEUT % 67.8 % (42.8-82.8); PLATELET COUNT 438 K/MM3 (134-434); RBC 3.06 M/mm3 (4.00-5.60); RDW 15.1 % (11.9-15.9); WHITE BLOOD COUNT 8.7 K/mm3 (4.0-10.0)
[2019-10-23 07:38] LABS: ALBUMIN 1.7 g/dl (3.4-5.0); BILIRUBIN,TOTAL 0.1 mg/dL (0.2-1); BLOOD UREA NITROGEN 49.3 mg/dL (7-18); CALCIUM 8.6 mg/dL (8.5-10.1); CREATININE 1.1 mg/dL (0.55-1.3); POTASSIUM 4.5 mmol/L (3.5-5.1); TOT PROT 5.6 g/dl (6.4-8.2)
[2019-10-23] MEDS: AMINO ACIDS/PROTEIN HYDROLYS 30 ML LIQUID.PKT PO SCH ×2 (08:57→17:13)
[2019-10-23] MEDS: PANTOPRAZOLE SODIUM 40 MG VIAL IVPUSH SCH (09:06)
--- NOTE | 2019-10-23 11:18 | PN ---
Progress Note, Physician - Current Medication List Current Medications: Active Medications Acetaminophen (Ofirmev Injection -) 1,000 mg IVPB Q6H PRN PRN Reason: PAIN Last Admin: 10/15/19 09:03 Dose: 1,000 mg Amino Acids (Prosource No Carb Liquid Pkt) 30 ml PO BID@0800,1730 [facility] Last Admin: 10/23/19 08:57 Dose: 30 ml Benzocaine/Menthol (Cepacol Lozenge -) 1 each MM PRN PRN PRN Reason: SORE THROAT Last Admin: 10/01/19 18:37 Dose: 1 each Heparin Sodium (Porcine) (Heparin -) 5,000 unit SQ TID [facility] Last Admin: 10/23/19 05:57 Dose: 5,000 unit Metoclopramide HCl (Reglan Injection -) 10 mg IVPUSH Q6H [facility] Last Admin: 10/23/19 05:57 Dose: 10 mg Ondansetron HCl (Zofran Injection) 4 mg IVPUSH Q6H PRN PRN Reason: NAUSEA Last Admin: 10/10/19 09:54 Dose: 4 mg Pantoprazole Sodium (Protonix Iv) 40 mg IVPUSH DAILY [facility] Last Admin: 10/23/19 09:06 Dose: 40 mg Simethicone (Mylicon -) 80 mg PO TID [facility] Last Admin: 10/23/19 05:57 Dose: 80 mg - Objective Vital Signs: Vital Signs Temperature 97.8 F 10/23/19 10:00 Pulse Rate 90 10/23/19 10:00 Respiratory Rate 20 10/23/19 10:00 Blood Pressure 112/59 L 10/23/19 10:00 O2 Sat by Pulse Oximetry (%) 99 10/23/19 09:00 Cardiovascular: Yes: Regular Rate and Rhythm Respiratory: Yes: Regular, CTA Bilaterally Gastrointestinal: Yes: Normal Bowel Sounds, Soft Labs: CBC, BMP 10/23/19 06:00 10/23/19 06:00 INR, PTT INR 1.18 (0.83-1.09) H 09/29/19 09:37 Problem List - Problems (1) Abdominal distension Code(s): R14.0 - ABDOMINAL DISTENSION (GASEOUS) (2) Functional quadriplegia Code(s): R53.2 - FUNCTIONAL QUADRIPLEGIA (3) Stage 4 decubitus ulcer Code(s): L89.94 - PRESSURE ULCER OF UNSPECIFIED SITE, STAGE 4 (4) HTN (hypertension) Code(s): I10 - ESSENTIAL (PRIMARY) HYPERTENSION (5) Suprapubic catheter Code(s): Z93.59 - OTHER CYSTOSTOMY STATUS Assessment/Plan - Problems (1) Abdominal pain Assessment/Plan: -GI and Surgery on board -CTAP shows moderate gasseous distention of a tortuous sigmoid colon, possibility of intermittent volvulus should be considered, inflammatory changes about the distal sigmoid and rectum suspicious for proctitis, suprapubic cystostomy tube with thickened urinary bladder, cystitis cannot be excluded cholelithiasis with no evidence of acute cholecystitis -Serial Abdominal xrays with lastest from 09/26/19 showing some decompression of sigmoid since 09/24/19 -pain control -Abdominal Xray shows persistent SBO--follow up orederd -SBO resolved, NGT removed Code(s): R10.9 - UNSPECIFIED ABDOMINAL PAIN Qualifiers: Abdominal location: generalized Qualified Code(s): R10.84 - Generalized abdominal pain (2) Functional quadriplegia Assessment/Plan: -PT -Fall risk precaution Code(s): R53.2 - FUNCTIONAL QUADRIPLEGIA (3) Sigmoid volvulus Assessment/Plan: -GI and Surgery on board -CTAP shows moderate gasseous distention of a tortuous sigmoid colon, possibility of intermittent volvulus should be considered, inflammatory changes about the distal sigmoid and rectum suspicious for proctitis, suprapubic cystostomy tube with thickened urinary bladder, cystitis cannot be excluded cholelithiasis with no evidence of acute cholecystitis -Serial Abdominal xrays with lastest from 09/26/19 showing some decompression of sigmoid since 09/24/19 -pain control -Rectal tube in for decompression -POD#21 sigmoid colectomy with end colostomy -Incentive spirometer -pain control Code(s): K56.2 - VOLVULUS (4) Stage 4 decubitus ulcer Assessment/Plan: -Vascular on board -reposition q2h -air mattress -drawsheets and Trendelenburg when repositioning to avoid friction and shear -manage incontinence in timely manner -offloading -pack sacral wound with moist kerlix and apply dressing -no surgical debridement at this time -pending consult from Plastic Surgery Code(s): L89.94 - PRESSURE ULCER OF UNSPECIFIED SITE, STAGE 4 (5) Abdominal distension Assessment/Plan: -GI and Surgery on board -CTAP shows moderate gasseous distention of a tortuous sigmoid colon, possibility of intermittent volvulus should be considered, inflammatory changes about the distal sigmoid and rectum suspicious for proctitis, suprapubic cystostomy tube with thickened urinary bladder, cystitis cannot be excluded cholelithiasis with no evidence of acute cholecystitis -Serial Abdominal xrays with lastest from 09/26/19 showing some decompression of sigmoid since 09/24/19 -Abdominal Xray shows persistent SBO -NGT discontinued -SBO resolved Code(s): R14.0 - ABDOMINAL DISTENSION (GASEOUS) (6) Anemia Assessment/Plan: -Hg 8.3 -transfuse for Hg <7.0 to avoid fluid overload -Anemia panel show low Fe and TIBC -MVI Code(s): D64.9 - ANEMIA, UNSPECIFIED (7) HTN (hypertension) Assessment/Plan: -monitor BP -low Na diet Code(s): I10 - ESSENTIAL (PRIMARY) HYPERTENSION (8) Neurogenic bladder Assessment/Plan: -Urology on board -suprapubic catheter changed yesterday by Urology Code(s): N31.9 - NEUROMUSCULAR DYSFUNCTION OF BLADDER, UNSPECIFIED (9) UTI (urinary tract infection) Assessment/Plan: -ID on board -UA shows 3+ leuks, 3+ blood, 3+ -UC neg -leukocytosis -afebrile -no antibiotic intervention at present, observe off Code(s): N39.0 - URINARY TRACT INFECTION, SITE NOT SPECIFIED Qualifiers: Hematuria presence: with hematuria (10) Hypernatremia Assessment/Plan: -Na 141 -Renal on board -monitor Na level daily Code(s): E87.0 - HYPEROSMOLALITY AND HYPERNATREMIA (11) Ileus, unspecified Assessment/Plan: -Abdominal Xray shows persistent SBO -NGT removed -pending repeat Abdominal Xray results -soft diet -SBO resolved -GI on board Code(s): K56.7 - ILEUS, UNSPECIFIED (12) Elevated BUN Assessment/Plan: -BUN/Cr 76.9/1.3 -improving after TPN held -Renal on board -continue with IV hydration Code(s): R79.9 - ABNORMAL FINDING OF BLOOD CHEMISTRY, UNSPECIFIED
--- NOTE | 2019-10-23 19:28 | PN ---
Progress Note, Physician History of Present Illness: Pt seen and examined at bedside. He is awake and appears comfortable. - Current Medication List Current Medications: Active Medications Acetaminophen (Ofirmev Injection -) 1,000 mg IVPB Q6H PRN PRN Reason: PAIN Last Admin: 10/15/19 09:03 Dose: 1,000 mg Amino Acids (Prosource No Carb Liquid Pkt) 30 ml PO BID@0800,1730 [facility] Last Admin: 10/23/19 17:13 Dose: 30 ml Benzocaine/Menthol (Cepacol Lozenge -) 1 each MM PRN PRN PRN Reason: SORE THROAT Last Admin: 10/01/19 18:37 Dose: 1 each Heparin Sodium (Porcine) (Heparin -) 5,000 unit SQ TID [facility] Last Admin: 10/23/19 14:30 Dose: 5,000 unit Metoclopramide HCl (Reglan Injection -) 10 mg IVPUSH Q6H [facility] Last Admin: 10/23/19 17:48 Dose: 10 mg Ondansetron HCl (Zofran Injection) 4 mg IVPUSH Q6H PRN PRN Reason: NAUSEA Last Admin: 10/10/19 09:54 Dose: 4 mg Pantoprazole Sodium (Protonix Iv) 40 mg IVPUSH DAILY [facility] Last Admin: 10/23/19 09:06 Dose: 40 mg Simethicone (Mylicon -) 80 mg PO TID [facility] Last Admin: 10/23/19 14:30 Dose: 80 mg - Objective Vital Signs: Vital Signs Temperature 98.0 F 10/23/19 14:36 Pulse Rate 78 10/23/19 14:36 Respiratory Rate 20 10/23/19 14:36 Blood Pressure 111/55 L 10/23/19 14:36 O2 Sat by Pulse Oximetry (%) 99 10/23/19 09:00 Constitutional: Yes: Calm Eyes: Yes: Conjunctiva Clear HENT: Yes: Atraumatic Neck: Yes: Supple Cardiovascular: Yes: S1, S2 Respiratory: Yes: CTA Bilaterally Gastrointestinal: Yes: Normal Bowel Sounds, Soft Genitourinary: Yes: Rowe Present Musculoskeletal: Yes: Muscle Weakness Neurological: Yes: Oriented Labs: CBC, BMP 10/23/19 06:00 10/23/19 06:00 INR, PTT INR 1.18 (0.83-1.09) H 09/29/19 09:37 Assessment/Plan Current Medications Generic Name Dose Route Start Last Admin Trade Name Freq PRN Reason Stop Dose Admin Acetaminophen 1,000 mg 10/11/19 11:40 10/15/19 09:03 Ofirmev Injection - IVPB 1,000 mg Q6H PRN Administration PAIN Amino Acids 30 ml 10/21/19 17:30 10/23/19 17:13 Prosource No Carb Liquid Pkt PO 30 ml BID@0800,1730 [facility] Administration Benzocaine/Menthol 1 each 10/01/19 11:02 10/01/19 18:37 Cepacol Lozenge - MM 1 each PRN PRN Administration SORE THROAT Heparin Sodium (Porcine) 5,000 unit 10/14/19 14:00 10/23/19 14:30 Heparin - SQ 5,000 unit TID [facility] Administration Metoclopramide HCl 10 mg 10/08/19 12:30 10/23/19 17:48 Reglan Injection - IVPUSH 10 mg Q6H [facility] Administration Ondansetron HCl 4 mg 10/10/19 08:37 10/10/19 09:54 Zofran Injection IVPUSH 4 mg Q6H PRN Administration NAUSEA Pantoprazole Sodium 40 mg 10/11/19 11:45 10/23/19 09:06 Protonix Iv IVPUSH 40 mg DAILY [facility] Administration Simethicone 80 mg 10/20/19 14:00 10/23/19 14:30 Mylicon - PO 80 mg TID [facility] Administration Impression 1. MARTINEZ 2. Recurrent sigmoid volvolus s/p Hartmans procedure 3. Neurogenic bladder 4. Hypernatremia 5. Anemia 6. Prolonged NPO 7. azotemia Plan - bun continues to improve - pt tolerating diet, encourage po intake - tpn stopped, likely was contributing to elevated bun - cont supplements - repeat labs in am
[2019-10-24] MEDS: METOCLOPRAMIDE HCL INJECTION 10 MG/2 ML VIAL IVPUSH SCH ×2 (00:30→05:48)
[2019-10-24] MEDS: SIMETHICONE 80 MG TAB.CHEW (FP) PO SCH ×3 (05:02→20:59)
[2019-10-24] MEDS: HEPARIN NA (PORCINE) 5,000 UNITS/ML 1ML VIAL SQ SCH ×3 (05:02→20:59)
[2019-10-24 08:30] LABS: BASO % 0.6 % (0-2.0); EOS % 7.6 % (0-4.5); HEMATOCRIT 26.1 % (35.4-49); HEMOGLOBIN 8.5 GM/dL (11.7-16.9); LYMPH % 12.8 % (8-40); MCH 27.1 pg (25.7-33.7); MCHC 32.6 g/dl (32.0-35.9); MEAN CELL VOLUME 83.2 fl (80-96); MEAN PLT VOLUME 6.8 fl (7.5-11.1); MONO % 7.5 % (3.8-10.2); NEUT % 71.5 % (42.8-82.8); PLATELET COUNT 452 K/MM3 (134-434); RBC 3.13 M/mm3 (4.00-5.60); RDW 14.9 % (11.9-15.9); WHITE BLOOD COUNT 7.3 K/mm3 (4.0-10.0)
[2019-10-24] MEDS: PANTOPRAZOLE SODIUM 40 MG VIAL IVPUSH SCH (09:00)
[2019-10-24] MEDS: AMINO ACIDS/PROTEIN HYDROLYS 30 ML LIQUID.PKT PO SCH ×2 (09:01→16:42)
--- NOTE | 2019-10-24 09:12 | DS ---
Physical Examination Vital Signs: Vital Signs Temperature 99.3 F 10/24/19 07:10 Pulse Rate 89 10/24/19 07:10 Respiratory Rate 21 H 10/24/19 07:10 Blood Pressure 138/63 10/24/19 07:10 O2 Sat by Pulse Oximetry (%) 100 10/23/19 21:00 Cardiovascular: Yes: Regular Rate and Rhythm Respiratory: Yes: Regular, CTA Bilaterally Gastrointestinal: Yes: Normal Bowel Sounds, Soft. No: Distention Labs: CBC, BMP 10/24/19 06:00 Discharge Summary Problems reviewed: Yes Reason For Visit: PRESSURE INJURY OF SKIN OF SACRAL REGION Current Active Problems Abdominal pain (Acute) Elevated BUN (Acute) Functional quadriplegia (Acute) Hypernatremia (Acute) Ileus, unspecified (Acute) Proctitis (Acute) Sigmoid volvulus (Acute) Stage 4 decubitus ulcer (Acute) Status post Kimmie procedure (Acute) Suprapubic catheter (Acute) Suprapubic pain (Acute) Hospital Course: - Problems (1) Abdominal pain Assessment/Plan: -GI and Surgery on board -CTAP shows moderate gasseous distention of a tortuous sigmoid colon, possibility of intermittent volvulus should be considered, inflammatory changes about the distal sigmoid and rectum suspicious for proctitis, suprapubic cystostomy tube with thickened urinary bladder, cystitis cannot be excluded cholelithiasis with no evidence of acute cholecystitis -Serial Abdominal xrays with lastest from 09/26/19 showing some decompression of sigmoid since 09/24/19 -pain control -Abdominal Xray shows persistent SBO--follow up orederd -SBO resolved, NGT removed Code(s): R10.9 - UNSPECIFIED ABDOMINAL PAIN Qualifiers: Abdominal location: generalized Qualified Code(s): R10.84 - Generalized abdominal pain (2) Functional quadriplegia Assessment/Plan: -PT -Fall risk precaution Code(s): R53.2 - FUNCTIONAL QUADRIPLEGIA (3) Sigmoid volvulus Assessment/Plan: -GI and Surgery on board -CTAP shows moderate gasseous distention of a tortuous sigmoid colon, possibility of intermittent volvulus should be considered, inflammatory changes about the distal sigmoid and rectum suspicious for proctitis, suprapubic cystostomy tube with thickened urinary bladder, cystitis cannot be excluded cholelithiasis with no evidence of acute cholecystitis -Serial Abdominal xrays with lastest SHOWING SBO--COLOSTOMY FUNCTIONING--GI FOLLOW UP -pain control -Rectal tube in for decompression -S/P sigmoid colectomy with end colostomy -Incentive spirometer -pain control Code(s): K56.2 - VOLVULUS (4) Stage 4 decubitus ulcer Assessment/Plan: -Vascular on board -reposition q2h -air mattress -drawsheets and Trendelenburg when repositioning to avoid friction and shear -manage incontinence in timely manner -offloading -pack sacral wound with moist kerlix and apply dressing -no surgical debridement at this time -pending consult from Plastic Surgery Code(s): L89.94 - PRESSURE ULCER OF UNSPECIFIED SITE, STAGE 4 (5) Abdominal distension Assessment/Plan: -GI and Surgery on board -CTAP shows moderate gasseous distention of a tortuous sigmoid colon, possibility of intermittent volvulus should be considered, inflammatory changes about the distal sigmoid and rectum suspicious for proctitis, suprapubic cystostomy tube with thickened urinary bladder, cystitis cannot be excluded cholelithiasis with no evidence of acute cholecystitis -Serial Abdominal xrays with lastest from 09/26/19 showing some decompression of sigmoid since 09/24/19 -Abdominal Xray shows persistent SBO -NGT discontinued -SBO ON XRAY--REPEAT AND GI FOLLOW UP Code(s): R14.0 - ABDOMINAL DISTENSION (GASEOUS) (6) Anemia Assessment/Plan: -Hg 8.3 -transfuse for Hg <7.0 to avoid fluid overload -Anemia panel show low Fe and TIBC -MVI Code(s): D64.9 - ANEMIA, UNSPECIFIED (7) HTN (hypertension) Assessment/Plan: -monitor BP -low Na diet Code(s): I10 - ESSENTIAL (PRIMARY) HYPERTENSION (8) Neurogenic bladder Assessment/Plan: -Urology on board -suprapubic catheter changed yesterday by Urology Code(s): N31.9 - NEUROMUSCULAR DYSFUNCTION OF BLADDER, UNSPECIFIED (9) UTI (urinary tract infection) Assessment/Plan: -ID on board -UA shows 3+ leuks, 3+ blood, 3+ -UC neg -afebrile -no antibiotic intervention at present, observe off Code(s): N39.0 - URINARY TRACT INFECTION, SITE NOT SPECIFIED Qualifiers: Hematuria presence: with hematuria (10) Hypernatremia Assessment/Plan: -Renal on board -monitor Na level daily Code(s): E87.0 - HYPEROSMOLALITY AND HYPERNATREMIA (11) Ileus, unspecified Assessment/Plan: -Abdominal Xray shows persistent SBO -NGT removed -pending repeat Abdominal Xray results -tolerating diet -GI on board Code(s): K56.7 - ILEUS, UNSPECIFIED (12) Elevated BUN Assessment/Plan: -BUN/Cr improving -improving after TPN held -Renal on board -continue with IV hydration Code(s): R79.9 - ABNORMAL FINDING OF BLOOD CHEMISTRY, UNSPECIFIED Condition: Stable - Instructions Referrals: Chapo Quintero MD [Staff Physician] - 1 Week Disposition: LONG-TERM FACILITY - Home Medications Comprehensive Discharge Medication List: Ambulatory Orders Nystatin Powder [Nystop Powder -] 15 gm TP BID 08/31/19 Amino Acids/Protein Hydrolys [Prosource No Carb Liquid Pkt] 30 ml PO BID@0800, 1730 packet 10/04/19 Amino Acids/Protein Hydrolys [Prosource No Carb Liquid Pkt] 30 ml PO BID@0800, 1730 packet 10/24/19 Heparin - 5,000 unit SQ TID vial 10/24/19 Metoclopramide HCl [Reglan -] 10 mg PO ACHS tablet 10/24/19 Pantoprazole Sodium [Protonix -] 40 mg PO DAILY tablet.ec 10/24/19 Simethicone [Mylicon -] 80 mg PO TID tab.chew 10/24/19
[2019-10-24 09:54] LABS: ALBUMIN 1.8 g/dl (3.4-5.0); BILIRUBIN,TOTAL 0.3 mg/dL (0.2-1); BLOOD UREA NITROGEN 48.1 mg/dL (7-18); CALCIUM 8.1 mg/dL (8.5-10.1); CREATININE 1.1 mg/dL (0.55-1.3); POTASSIUM 4.6 mmol/L (3.5-5.1); TOT PROT 5.9 g/dl (6.4-8.2)
[2019-10-24] MEDS: PANTOPRAZOLE 40 MG TABLET PO SCH (11:16)
[2019-10-24] MEDS: METOCLOPRAMIDE HCL 10 MG TABLET (FP) PO SCH ×3 (11:53→20:59)
--- NOTE | 2019-10-24 12:27 | PN ---
Progress Note (short form) - Note Progress Note: Renal follow up for MARTINEZ Seen and examined at the bedside awake and alert no overnight events tolerating oral diet making urine Vital Signs Temperature 99.3 F 10/24/19 07:10 Pulse Rate 89 10/24/19 07:10 Respiratory Rate 21 H 10/24/19 07:10 Blood Pressure 138/63 10/24/19 07:10 O2 Sat by Pulse Oximetry (%) 100 10/24/19 09:00 Intake & Output 10/21/19 10/22/19 10/23/19 10/24/19 23:59 23:59 23:59 23:59 Intake Total 790 1715 520 50 Output Total 1400 1350 975 500 Balance -610 365 -455 -450 NAD CTA soft NT/ND Abd no LE edema CBC, BMP 10/24/19 06:00 10/24/19 06:00 Current Medications Amino Acids (Prosource No Carb Liquid Pkt) 30 ml PO BID@0800,1730 [facility] Last Admin: 10/24/19 09:01 Dose: 30 ml Benzocaine/Menthol (Cepacol Lozenge -) 1 each MM PRN PRN PRN Reason: SORE THROAT Last Admin: 10/01/19 18:37 Dose: 1 each Heparin Sodium (Porcine) (Heparin -) 5,000 unit SQ TID [facility] Last Admin: 10/24/19 05:02 Dose: 5,000 unit Metoclopramide HCl (Reglan -) 10 mg PO ACHS [facility] Last Admin: 10/24/19 11:53 Dose: 10 mg Ondansetron HCl (Zofran Injection) 4 mg IVPUSH Q6H PRN PRN Reason: NAUSEA Last Admin: 10/10/19 09:54 Dose: 4 mg Pantoprazole Sodium (Protonix -) 40 mg PO DAILY [facility] Last Admin: 10/24/19 11:16 Dose: Not Given Simethicone (Mylicon -) 80 mg PO TID [facility] Last Admin: 10/24/19 05:02 Dose: 80 mg 73 year old Gentleman with history of Quadriplegia, neurogenic bladder with SPC , hypertension, DM who presented with recurrent sigmoid volvolus s/p Hartmans procedure with worsening renal function. 1. Acute kidney injury likely due to hypovolemia 2. Recurrent sigmoid volvolus s/p Hartmans procedure 3. Neurogenic bladder 4. Hypernatremia 5. Anemia 6. Prolonged NPO now requiring TPN Renal function stable BUN improving now that he is off TPN continue oral feeds stable for discharge from renal perspective. Arias Eubanks DO
--- NOTE | 2019-10-24 14:08 | PN ---
Progress Note (short form) - Note Progress Note: GI follow up Last seen by GI 09/28 Patient tolerating PO diet Denies abdominal pain No vomiting; nurse reported slight nausea after lunch Ostomy is functioning Vital Signs Temp 98.2 F 10/24/19 08:00 Pulse 86 10/24/19 08:00 Resp 20 10/24/19 08:00 BP 115/51 L 10/24/19 08:00 Pulse Ox 100 10/24/19 09:00 NAD soft NT ND colostomy pink and moist CBC, BMP 10/24/19 06:00 10/24/19 06:00 AXR with "SBO" Impression - imaging does not correlate w clinical picture - does not seem obstructed. Continue current management.
[2019-10-24] MEDS: ACETAMINOPHEN 325 MG TABLET (FP) PO PRN (20:59)
[2019-10-25] MEDS: HEPARIN NA (PORCINE) 5,000 UNITS/ML 1ML VIAL SQ SCH ×3 (05:44→22:31)
[2019-10-25] MEDS: SIMETHICONE 80 MG TAB.CHEW (FP) PO SCH ×3 (05:44→22:31)
[2019-10-25] MEDS: METOCLOPRAMIDE HCL 10 MG TABLET (FP) PO SCH ×4 (06:03→22:31)
[2019-10-25] MEDS: PANTOPRAZOLE 40 MG TABLET PO SCH ×2 (08:54→11:29)
[2019-10-25] MEDS: AMINO ACIDS/PROTEIN HYDROLYS 30 ML LIQUID.PKT PO SCH ×2 (08:55→18:09)
--- NOTE | 2019-10-25 11:04 | DS ---
Physical Examination Vital Signs: Vital Signs Temperature 98.6 F 10/25/19 05:29 Pulse Rate 88 10/25/19 05:29 Respiratory Rate 20 10/25/19 01:00 Blood Pressure 136/61 10/25/19 05:29 O2 Sat by Pulse Oximetry (%) 97 10/24/19 21:00 Findings/Remarks: (1) Abdominal pain Assessment/Plan: -GI and Surgery on board -CTAP shows moderate gasseous distention of a tortuous sigmoid colon, possibility of intermittent volvulus should be considered, inflammatory changes about the distal sigmoid and rectum suspicious for proctitis, suprapubic cystostomy tube with thickened urinary bladder, cystitis cannot be excluded cholelithiasis with no evidence of acute cholecystitis -Serial Abdominal xrays with lastest from 09/26/19 showing some decompression of sigmoid since 09/24/19 -pain control -Abdominal Xray shows persistent SBO--follow up orederd -SBO resolved, NGT removed Code(s): R10.9 - UNSPECIFIED ABDOMINAL PAIN Qualifiers: Abdominal location: generalized Qualified Code(s): R10.84 - Generalized abdominal pain (2) Functional quadriplegia Assessment/Plan: -PT -Fall risk precaution Code(s): R53.2 - FUNCTIONAL QUADRIPLEGIA (3) Sigmoid volvulus Assessment/Plan: -GI and Surgery on board -CTAP shows moderate gasseous distention of a tortuous sigmoid colon, possibility of intermittent volvulus should be considered, inflammatory changes about the distal sigmoid and rectum suspicious for proctitis, suprapubic cystostomy tube with thickened urinary bladder, cystitis cannot be excluded cholelithiasis with no evidence of acute cholecystitis -Serial Abdominal xrays with lastest SHOWING SBO--COLOSTOMY FUNCTIONING--GI FOLLOW UP -pain control -Rectal tube in for decompression -S/P sigmoid colectomy with end colostomy -Incentive spirometer -pain control Code(s): K56.2 - VOLVULUS (4) Stage 4 decubitus ulcer Assessment/Plan: -Vascular on board -reposition q2h -air mattress -drawsheets and Trendelenburg when repositioning to avoid friction and shear -manage incontinence in timely manner -offloading -pack sacral wound with moist kerlix and apply dressing -no surgical debridement at this time -pending consult from Plastic Surgery Code(s): L89.94 - PRESSURE ULCER OF UNSPECIFIED SITE, STAGE 4 (5) Abdominal distension Assessment/Plan: -GI and Surgery on board -CTAP shows moderate gasseous distention of a tortuous sigmoid colon, possibility of intermittent volvulus should be considered, inflammatory changes about the distal sigmoid and rectum suspicious for proctitis, suprapubic cystostomy tube with thickened urinary bladder, cystitis cannot be excluded cholelithiasis with no evidence of acute cholecystitis -Serial Abdominal xrays with lastest from 09/26/19 showing some decompression of sigmoid since 09/24/19 -Abdominal Xray shows persistent SBO -NGT discontinued -SBO ON XRAY--REPEAT AND GI FOLLOW UP Code(s): R14.0 - ABDOMINAL DISTENSION (GASEOUS) (6) Anemia Assessment/Plan: -Hg 8.3 -transfuse for Hg <7.0 to avoid fluid overload -Anemia panel show low Fe and TIBC -MVI Code(s): D64.9 - ANEMIA, UNSPECIFIED (7) HTN (hypertension) Assessment/Plan: -monitor BP -low Na diet Code(s): I10 - ESSENTIAL (PRIMARY) HYPERTENSION (8) Neurogenic bladder Assessment/Plan: -Urology on board -suprapubic catheter changed yesterday by Urology Code(s): N31.9 - NEUROMUSCULAR DYSFUNCTION OF BLADDER, UNSPECIFIED (9) UTI (urinary tract infection) Assessment/Plan: -ID on board -UA shows 3+ leuks, 3+ blood, 3+ -UC neg -afebrile -no antibiotic intervention at present, observe off Code(s): N39.0 - URINARY TRACT INFECTION, SITE NOT SPECIFIED Qualifiers: Hematuria presence: with hematuria (10) Hypernatremia Assessment/Plan: -Renal on board -monitor Na level daily Code(s): E87.0 - HYPEROSMOLALITY AND HYPERNATREMIA (11) Ileus, unspecified Assessment/Plan: -Abdominal Xray shows persistent SBO -NGT removed -pending repeat Abdominal Xray results -tolerating diet -GI on board Code(s): K56.7 - ILEUS, UNSPECIFIED (12) Elevated BUN Assessment/Plan: -BUN/Cr improving -improving after TPN held -Renal on board -continue with IV hydration Code(s): R79.9 - ABNORMAL FINDING OF BLOOD CHEMISTRY, UNSPECIFIED Constitutional: Yes: No Distress, Calm, Cachectic Cardiovascular: Yes: Regular Rate and Rhythm Respiratory: Yes: Regular, On Nasal O2 Gastrointestinal: Yes: Normal Bowel Sounds, Soft, Other (Midline healing incision, LLQ ostomy+ stool+ Flatus) Renal/: Yes: Other (supra pubic catheter) Musculoskeletal: Yes: Muscle Weakness Extremities: Yes: Other (generalized atrophy) Edema: No Peripheral Pulses WNL: Yes Neurological: Yes: Alert, Oriented Psychiatric: Yes: Alert, Oriented Labs: CBC, BMP 10/24/19 06:00 10/24/19 06:00 Discharge Summary Problems reviewed: Yes Reason For Visit: PRESSURE INJURY OF SKIN OF SACRAL REGION Current Active Problems Abdominal pain (Acute) Elevated BUN (Acute) Functional quadriplegia (Acute) Hypernatremia (Acute) Ileus, unspecified (Acute) Proctitis (Acute) Sigmoid volvulus (Acute) Stage 4 decubitus ulcer (Acute) Status post Kimmie procedure (Acute) Suprapubic catheter (Acute) Suprapubic pain (Acute) Laboratory Last Values WBC 7.3 K/mm3 (4.0-10.0) 10/24/19 06:00 RBC 3.13 M/mm3 (4.00-5.60) L 10/24/19 06:00 Hgb 8.5 GM/dL (11.7-16.9) L 10/24/19 06:00 Hct 26.1 % (35.4-49) L 10/24/19 06:00 MCV 83.2 fl (80-96) 10/24/19 06:00 MCH 27.1 pg (25.7-33.7) 10/24/19 06:00 MCHC 32.6 g/dl (32.0-35.9) 10/24/19 06:00 RDW 14.9 % (11.9-15.9) 10/24/19 06:00 Plt Count 452 K/MM3 (134-434) H 10/24/19 06:00 MPV 6.8 fl (7.5-11.1) L 10/24/19 06:00 Absolute Neuts (auto) 5.2 K/mm3 (1.5-8.0) 10/24/19 06:00 Neutrophils % 71.5 % (42.8-82.8) 10/24/19 06:00 Lymphocytes % 12.8 % (8-40) 10/24/19 06:00 Monocytes % 7.5 % (3.8-10.2) 10/24/19 06:00 Eosinophils % 7.6 % (0-4.5) H 10/24/19 06:00 Basophils % 0.6 % (0-2.0) 10/24/19 06:00 Nucleated RBC % 0 % (0-0) 10/24/19 06:00 PT with INR 13.90 SEC (9.7-13.0) H 09/29/19 09:37 INR 1.18 (0.83-1.09) H 09/29/19 09:37 Anticoagulation Therapy No Result Required. 10/14/19 11:35 Puncture Site Right radial 10/14/19 11:35 ABG pH 7.39 (7.35-7.45) 10/14/19 11:35 ABG pCO2 at Pt Temp 34.9 mmHg (35-45) L 10/14/19 11:35 ABG pO2 at Pt Temp 85.9 mmHg (80-100) 10/14/19 11:35 ABG HCO3 20.4 mmol/L (22-27) L 10/14/19 11:35 ABG O2 Sat (Measured) 96.0 % (95-98) 10/14/19 11:35 ABG O2 Content 13.5 % vol 10/14/19 11:35 ABG Base Excess -3.6 meq/l (-2-2) L 10/14/19 11:35 Rafi Test Positive 10/14/19 11:35 O2 Delivery Device No Result Required. 10/14/19 11:35 Oxygen Flow Rate No 10/14/19 11:35 Vent Mode No Result Required. 10/14/19 11:35 Vent Rate No Result Required. 10/14/19 11:35 Mechanical Rate No Result Required. 10/14/19 11:35 Pressure Support Vent No Result Required. 10/14/19 11:35 Sodium 140 mmol/L (136-145) 10/24/19 06:00 Potassium 4.6 mmol/L (3.5-5.1) 10/24/19 06:00 Chloride 111 mmol/L (98-107) H 10/24/19 06:00 Carbon Dioxide 26 mmol/L (21-32) 10/24/19 06:00 Anion Gap 4 MMOL/L (8-16) L 10/24/19 06:00 BUN 48.1 mg/dL (7-18) H 10/24/19 06:00 Creatinine 1.1 mg/dL (0.55-1.3) 10/24/19 06:00 Est GFR (CKD-EPI)AfAm 75.71 10/24/19 06:00 Est GFR (CKD-EPI)NonAf 65.32 10/24/19 06:00 POC Glucometer 94 UNITS (80-120) 10/24/19 05:20 Random Glucose 98 mg/dL (74-106) 10/24/19 06:00 Lactic Acid 1.5 mmol/L (0.4-2.0) 09/22/19 21:35 Calcium 8.1 mg/dL (8.5-10.1) L 10/24/19 06:00 Phosphorus 2.5 mg/dL (2.5-4.9) 10/22/19 07:30 Magnesium 2.0 mg/dL (1.8-2.4) 10/22/19 07:30 Iron 16 ug/dL (50-175) L 09/24/19 06:00 TIBC 216 ug/dL (250-450) L 09/24/19 06:00 Iron Saturation 7 % (17.5-39) L 09/24/19 06:00 Unsaturated IBC 200 ug/dL (200-275) 09/24/19 06:00 Total Bilirubin 0.3 mg/dL (0.2-1) 10/24/19 06:00 AST 15 U/L (15-37) 10/24/19 06:00 ALT 27 U/L (13-61) 10/24/19 06:00 Alkaline Phosphatase 128 U/L (45-117) H 10/24/19 06:00 Creatine Kinase 36 U/L (26-308) 10/14/19 06:25 Troponin I < 0.02 ng/ml (0.00-0.05) 10/14/19 06:25 Total Protein 5.9 g/dl (6.4-8.2) L 10/24/19 06:00 Albumin 1.8 g/dl (3.4-5.0) L 10/24/19 06:00 Triglycerides 132 mg/dL (0-150) 10/17/19 07:10 Cholesterol 92 mg/dL (50-200) 10/12/19 08:08 Total LDL Cholesterol 37 mg/dL (5-100) 10/12/19 08:08 HDL Cholesterol 41 mg/dL (40-60) 10/12/19 08:08 Total Amylase 51 U/L (25-115) 09/22/19 21:35 Lipase 99 U/L (73-393) 09/22/19 21:35 Vitamin B12 1171 pg/ml (193-986) H 10/12/19 08:08 Serum Folate 14 ng/mL (3.1-17.5) 10/12/19 08:08 Urine Color [place] 09/22/19 21:40 Urine Appearance Turbid 09/22/19 21:40 Urine pH 6.0 (5.0-8.0) 09/22/19 21:40 Ur Specific [place] 1.014 (1.010-1.035) 09/22/19 21:40 Urine Protein 3+ (NEGATIVE) H 09/22/19 21:40 Urine Glucose (UA) Negative (NEGATIVE) 09/22/19 21:40 Urine Ketones Negative (NEGATIVE) 09/22/19 21:40 Urine Blood 3+ (NEGATIVE) H 09/22/19 21:40 Urine Nitrite Negative (NEGATIVE) 09/22/19 21:40 Urine Bilirubin Negative (NEGATIVE) 09/22/19 21:40 Urine Urobilinogen 0.2 mg/dL (0.2-1.0) 09/22/19 21:40 Ur Leukocyte Esterase 3+ (NEGATIVE) H 09/22/19 21:40 Urine WBC (Auto) 250 /hpf (0-5) 09/22/19 21:40 Urine RBC (Auto) 414 /hpf (0-4) 09/22/19 21:40 Urine Casts (Auto) 23 /lpf (0-8) 09/22/19 21:40 U Pathogenic Cast Auto None seen /lpf (NEGATIVE) 09/22/19 21:40 U Epithel Cells (Auto) 2.5 /HPF (0-5/HPF) 09/22/19 21:40 Urine Bacteria (Auto) 367.4 /hpf (NEGATIVE) 09/22/19 21:40 Urine Yeast (Auto) Few (NEGATIVE) 09/22/19 21:40 Urine Eosinophils None seen % (.) 10/19/19 06:00 Ur Random Creatinine 57.0 mg/dL (30-150) 10/18/19 12:48 Ur Random Sodium 21 MMOL/L (40-220) L 10/18/19 14:19 Blood Type A POSITIVE 09/29/19 09:37 Antibody Screen Negative 09/29/19 09:37 Crossmatch IS Only See Detail 09/29/19 09:37 Microbiology 09/23/19 06:00 Wound Gram Stain - Final 09/23/19 06:00 Wound Wound Culture - Final 09/22/19 21:40 Urine - Urine Rowe Urine Culture - Final NO GROWTH OBTAINED Vital Signs Temp 98.6 F 10/25/19 05:29 Pulse 88 10/25/19 05:29 Resp 20 10/25/19 01:00 BP 136/61 10/25/19 05:29 Pulse Ox 97 10/24/19 21:00 Intake & Output 10/24/19 10/24/19 10/25/19 11:59 23:59 11:59 Intake Total 50 325 300 Output Total 500 850 900 Balance -450 -525 -600 Intake: Oral 50 325 300 Output: Urine 500 850 900 Supra Pubic Tube 500 850 900 Other: Voiding Method Indwelling Catheter Incontinent Indwelling Catheter Bowel Movement Yes Yes # Bowel Movements 1 1 Hospital Course: - Problems (1) Abdominal pain Assessment/Plan: -GI and Surgery on board -CTAP shows moderate gasseous distention of a tortuous sigmoid colon, possibility of intermittent volvulus should be considered, inflammatory changes about the distal sigmoid and rectum suspicious for proctitis, suprapubic cystostomy tube with thickened urinary bladder, cystitis cannot be excluded cholelithiasis with no evidence of acute cholecystitis -Serial Abdominal xrays with lastest from 09/26/19 showing some decompression of sigmoid since 09/24/19 -pain control -Abdominal Xray shows persistent SBO--follow up orederd -SBO resolved, NGT removed Code(s): R10.9 - UNSPECIFIED ABDOMINAL PAIN Qualifiers: Abdominal location: generalized Qualified Code(s): R10.84 - Generalized abdominal pain (2) Functional quadriplegia Assessment/Plan: -PT -Fall risk precaution Code(s): R53.2 - FUNCTIONAL QUADRIPLEGIA (3) Sigmoid volvulus Assessment/Plan: -GI and Surgery on board -CTAP shows moderate gasseous distention of a tortuous sigmoid colon, possibility of intermittent volvulus should be considered, inflammatory changes about the distal sigmoid and rectum suspicious for proctitis, suprapubic cystostomy tube with thickened urinary bladder, cystitis cannot be excluded cholelithiasis with no evidence of acute cholecystitis -Serial Abdominal xrays with lastest SHOWING SBO--COLOSTOMY FUNCTIONING--GI FOLLOW UP -pain control -Rectal tube in for decompression -S/P sigmoid colectomy with end colostomy -Incentive spirometer -pain control Code(s): K56.2 - VOLVULUS (4) Stage 4 decubitus ulcer Assessment/Plan: -Vascular on board -reposition q2h -air mattress -drawsheets and Trendelenburg when repositioning to avoid friction and shear -manage incontinence in timely manner -offloading -pack sacral wound with moist kerlix and apply dressing -no surgical debridement at this time -pending consult from Plastic Surgery Code(s): L89.94 - PRESSURE ULCER OF UNSPECIFIED SITE, STAGE 4 (5) Abdominal distension Assessment/Plan: -GI and Surgery on board -CTAP shows moderate gasseous distention of a tortuous sigmoid colon, possibility of intermittent volvulus should be considered, inflammatory changes about the distal sigmoid and rectum suspicious for proctitis, suprapubic cystostomy tube with thickened urinary bladder, cystitis cannot be excluded cholelithiasis with no evidence of acute cholecystitis -Serial Abdominal xrays with lastest from 09/26/19 showing some decompression of sigmoid since 09/24/19 -Abdominal Xray shows persistent SBO -NGT discontinued -SBO ON XRAY--REPEAT AND GI FOLLOW UP Code(s): R14.0 - ABDOMINAL DISTENSION (GASEOUS) (6) Anemia Assessment/Plan: -Hg 8.3 -transfuse for Hg <7.0 to avoid fluid overload -Anemia panel show low Fe and TIBC -MVI Code(s): D64.9 - ANEMIA, UNSPECIFIED (7) HTN (hypertension) Assessment/Plan: -monitor BP -low Na diet Code(s): I10 - ESSENTIAL (PRIMARY) HYPERTENSION (8) Neurogenic bladder Assessment/Plan: -Urology on board -suprapubic catheter changed yesterday by Urology Code(s): N31.9 - NEUROMUSCULAR DYSFUNCTION OF BLADDER, UNSPECIFIED (9) UTI (urinary tract infection) Assessment/Plan: -ID on board -UA shows 3+ leuks, 3+ blood, 3+ -UC neg -afebrile -no antibiotic intervention at present, observe off Code(s): N39.0 - URINARY TRACT INFECTION, SITE NOT SPECIFIED Qualifiers: Hematuria presence: with hematuria (10) Hypernatremia Assessment/Plan: -Renal on board -monitor Na level daily Code(s): E87.0 - HYPEROSMOLALITY AND HYPERNATREMIA (11) Ileus, unspecified Assessment/Plan: -Abdominal Xray shows persistent SBO -NGT removed -pending repeat Abdominal Xray results -tolerating diet -GI on board Code(s): K56.7 - ILEUS, UNSPECIFIED (12) Elevated BUN Assessment/Plan: -BUN/Cr improving -improving after TPN held -Renal on board -continue with IV hydration Code(s): R79.9 - ABNORMAL FINDING OF BLOOD CHEMISTRY, UNSPECIFIED Condition: Stable - Instructions Referrals: Chapo Quintero MD [Staff Physician] - 1 Week Disposition: [facility]ILITY - Home Medications Comprehensive Discharge Medication List: Ambulatory Orders Nystatin Powder [Nystop Powder -] 15 gm TP BID 08/31/19 Amino Acids/Protein Hydrolys [Prosource No Carb Liquid Pkt] 30 ml PO BID@0800, 1730 packet 10/04/19 Amino Acids/Protein Hydrolys [Prosource No Carb Liquid Pkt] 30 ml PO BID@0800, 1730 packet 10/24/19 Heparin - 5,000 unit SQ TID vial 10/24/19 Metoclopramide HCl [Reglan -] 10 mg PO ACHS tablet 10/24/19 Pantoprazole Sodium [Protonix -] 40 mg PO DAILY tablet.ec 10/24/19 Simethicone [Mylicon -] 80 mg PO TID tab.chew 10/24/19 Acetaminophen [Tylenol .Regular Strength -] 650 mg PO Q6H PRN tablet 10/25/19 Prescription Drug Monitoring Program (I-STOP) results: I-STOP reviewed and no issues identified
[2019-10-25] MEDS: ACETAMINOPHEN 325 MG TABLET (FP) PO PRN (15:02)
[2019-10-26] MEDS: HEPARIN NA (PORCINE) 5,000 UNITS/ML 1ML VIAL SQ SCH ×3 (06:27→22:09)
[2019-10-26] MEDS: METOCLOPRAMIDE HCL 10 MG TABLET (FP) PO SCH ×4 (06:27→22:09)
[2019-10-26] MEDS: SIMETHICONE 80 MG TAB.CHEW (FP) PO SCH ×3 (06:27→22:09)
--- NOTE | 2019-10-26 09:06 | DS ---
Physical Examination Vital Signs: Vital Signs Temperature 98.4 F 10/26/19 05:58 Pulse Rate 98 H 10/26/19 05:58 Respiratory Rate 20 10/26/19 05:58 Blood Pressure 126/56 L 10/26/19 05:58 O2 Sat by Pulse Oximetry (%) 98 10/25/19 21:00 Cardiovascular: Yes: S1, S2 Respiratory: Yes: Regular, CTA Bilaterally Gastrointestinal: Yes: Normal Bowel Sounds, Soft. No: Tenderness Labs: CBC, BMP 10/24/19 06:00 10/24/19 06:00 Discharge Summary Problems reviewed: Yes Reason For Visit: PRESSURE INJURY OF SKIN OF SACRAL REGION Current Active Problems Abdominal pain (Acute) Elevated BUN (Acute) Functional quadriplegia (Acute) Hypernatremia (Acute) Ileus, unspecified (Acute) Proctitis (Acute) Sigmoid volvulus (Acute) Stage 4 decubitus ulcer (Acute) Status post Kimmie procedure (Acute) Suprapubic catheter (Acute) Suprapubic pain (Acute) Hospital Course: - Problems (1) Abdominal pain Assessment/Plan: -GI and Surgery on board -CTAP shows moderate gasseous distention of a tortuous sigmoid colon, possibility of intermittent volvulus should be considered, inflammatory changes about the distal sigmoid and rectum suspicious for proctitis, suprapubic cystostomy tube with thickened urinary bladder, cystitis cannot be excluded cholelithiasis with no evidence of acute cholecystitis -Serial Abdominal xrays with lastest from 09/26/19 showing some decompression of sigmoid since 09/24/19 -pain control -Abdominal Xray shows persistent SBO--follow up orederd -SBO resolved, NGT removed Code(s): R10.9 - UNSPECIFIED ABDOMINAL PAIN Qualifiers: Abdominal location: generalized Qualified Code(s): R10.84 - Generalized abdominal pain (2) Functional quadriplegia Assessment/Plan: -PT -Fall risk precaution Code(s): R53.2 - FUNCTIONAL QUADRIPLEGIA (3) Sigmoid volvulus Assessment/Plan: -GI and Surgery on board -CTAP shows moderate gasseous distention of a tortuous sigmoid colon, possibility of intermittent volvulus should be considered, inflammatory changes about the distal sigmoid and rectum suspicious for proctitis, suprapubic cystostomy tube with thickened urinary bladder, cystitis cannot be excluded cholelithiasis with no evidence of acute cholecystitis -Serial Abdominal xrays with lastest SHOWING SBO--COLOSTOMY FUNCTIONING--GI FOLLOW UP -pain control -Rectal tube in for decompression -S/P sigmoid colectomy with end colostomy -Incentive spirometer -pain control Code(s): K56.2 - VOLVULUS (4) Stage 4 decubitus ulcer Assessment/Plan: -Vascular on board -reposition q2h -air mattress -drawsheets and Trendelenburg when repositioning to avoid friction and shear -manage incontinence in timely manner -offloading -pack sacral wound with moist kerlix and apply dressing -no surgical debridement at this time -pending consult from Plastic Surgery Code(s): L89.94 - PRESSURE ULCER OF UNSPECIFIED SITE, STAGE 4 (5) Abdominal distension Assessment/Plan: -GI and Surgery on board -CTAP shows moderate gasseous distention of a tortuous sigmoid colon, possibility of intermittent volvulus should be considered, inflammatory changes about the distal sigmoid and rectum suspicious for proctitis, suprapubic cystostomy tube with thickened urinary bladder, cystitis cannot be excluded cholelithiasis with no evidence of acute cholecystitis -Serial Abdominal xrays with lastest from 09/26/19 showing some decompression of sigmoid since 09/24/19 -Abdominal Xray shows persistent SBO -NGT discontinued -SBO ON XRAY--REPEAT AND GI FOLLOW UP Code(s): R14.0 - ABDOMINAL DISTENSION (GASEOUS) (6) Anemia Assessment/Plan: -Hg 8.3 -transfuse for Hg <7.0 to avoid fluid overload -Anemia panel show low Fe and TIBC -MVI Code(s): D64.9 - ANEMIA, UNSPECIFIED (7) HTN (hypertension) Assessment/Plan: -monitor BP -low Na diet Code(s): I10 - ESSENTIAL (PRIMARY) HYPERTENSION (8) Neurogenic bladder Assessment/Plan: -Urology on board -suprapubic catheter changed yesterday by Urology Code(s): N31.9 - NEUROMUSCULAR DYSFUNCTION OF BLADDER, UNSPECIFIED (9) UTI (urinary tract infection) Assessment/Plan: -ID on board -UA shows 3+ leuks, 3+ blood, 3+ -UC neg -afebrile -no antibiotic intervention at present, observe off Code(s): N39.0 - URINARY TRACT INFECTION, SITE NOT SPECIFIED Qualifiers: Hematuria presence: with hematuria (10) Hypernatremia Assessment/Plan: -Renal on board -monitor Na level daily Code(s): E87.0 - HYPEROSMOLALITY AND HYPERNATREMIA (11) Ileus, unspecified Assessment/Plan: -Abdominal Xray shows persistent SBO -NGT removed -pending repeat Abdominal Xray results -tolerating diet -GI on board Code(s): K56.7 - ILEUS, UNSPECIFIED (12) Elevated BUN Assessment/Plan: -BUN/Cr improving -improving after TPN held -Renal on board -continue with IV hydration Code(s): R79.9 - ABNORMAL FINDING OF BLOOD CHEMISTRY, UNSPECIFIED Condition: Stable - Instructions Referrals: Chapo Quintero MD [Staff Physician] - 1 Week Disposition: [facility] - Home Medications Comprehensive Discharge Medication List: Ambulatory Orders Nystatin Powder [Nystop Powder -] 15 gm TP BID 08/31/19 Amino Acids/Protein Hydrolys [Prosource No Carb Liquid Pkt] 30 ml PO BID@0800, 1730 packet 10/04/19 Amino Acids/Protein Hydrolys [Prosource No Carb Liquid Pkt] 30 ml PO BID@0800, 1730 packet 10/24/19 Heparin - 5,000 unit SQ TID vial 10/24/19 Metoclopramide HCl [Reglan -] 10 mg PO ACHS tablet 10/24/19 Pantoprazole Sodium [Protonix -] 40 mg PO DAILY tablet.ec 10/24/19 Simethicone [Mylicon -] 80 mg PO TID tab.chew 10/24/19 Acetaminophen [Tylenol .Regular Strength -] 650 mg PO Q6H PRN tablet 10/25/19
[2019-10-26] MEDS: PANTOPRAZOLE 40 MG TABLET PO SCH (10:36)
[2019-10-26] MEDS: AMINO ACIDS/PROTEIN HYDROLYS 30 ML LIQUID.PKT PO SCH ×2 (10:36→18:45)
[2019-10-27] MEDS: HEPARIN NA (PORCINE) 5,000 UNITS/ML 1ML VIAL SQ SCH ×3 (05:50→21:55)
[2019-10-27] MEDS: SIMETHICONE 80 MG TAB.CHEW (FP) PO SCH ×3 (05:50→21:55)
[2019-10-27] MEDS: METOCLOPRAMIDE HCL 10 MG TABLET (FP) PO SCH ×4 (06:34→21:55)
--- NOTE | 2019-10-27 07:49 | DS ---
Physical Examination Vital Signs: Vital Signs Temperature 98.3 F 10/27/19 05:25 Pulse Rate 93 H 10/27/19 05:25 Respiratory Rate 20 10/27/19 05:25 Blood Pressure 108/55 L 10/27/19 05:25 O2 Sat by Pulse Oximetry (%) 98 10/26/19 21:00 Cardiovascular: Yes: S1, S2 Respiratory: Yes: Regular, CTA Bilaterally Gastrointestinal: Yes: Normal Bowel Sounds, Soft. No: Distention Labs: CBC, BMP 10/24/19 06:00 10/24/19 06:00 Discharge Summary Problems reviewed: Yes Reason For Visit: PRESSURE INJURY OF SKIN OF SACRAL REGION Current Active Problems Abdominal pain (Acute) Elevated BUN (Acute) Functional quadriplegia (Acute) Hypernatremia (Acute) Ileus, unspecified (Acute) Proctitis (Acute) Sigmoid volvulus (Acute) Stage 4 decubitus ulcer (Acute) Status post Kimmie procedure (Acute) Suprapubic catheter (Acute) Suprapubic pain (Acute) Hospital Course: - Problems (1) Abdominal pain Assessment/Plan: -GI and Surgery on board -CTAP shows moderate gasseous distention of a tortuous sigmoid colon, possibility of intermittent volvulus should be considered, inflammatory changes about the distal sigmoid and rectum suspicious for proctitis, suprapubic cystostomy tube with thickened urinary bladder, cystitis cannot be excluded cholelithiasis with no evidence of acute cholecystitis -Serial Abdominal xrays with lastest from 09/26/19 showing some decompression of sigmoid since 09/24/19 -pain control -Abdominal Xray shows persistent SBO--follow up orederd -SBO resolved, NGT removed Code(s): R10.9 - UNSPECIFIED ABDOMINAL PAIN Qualifiers: Abdominal location: generalized Qualified Code(s): R10.84 - Generalized abdominal pain (2) Functional quadriplegia Assessment/Plan: -PT -Fall risk precaution Code(s): R53.2 - FUNCTIONAL QUADRIPLEGIA (3) Sigmoid volvulus Assessment/Plan: -GI and Surgery on board -CTAP shows moderate gasseous distention of a tortuous sigmoid colon, possibility of intermittent volvulus should be considered, inflammatory changes about the distal sigmoid and rectum suspicious for proctitis, suprapubic cystostomy tube with thickened urinary bladder, cystitis cannot be excluded cholelithiasis with no evidence of acute cholecystitis -Serial Abdominal xrays with lastest SHOWING SBO--COLOSTOMY FUNCTIONING--GI FOLLOW UP -pain control -Rectal tube in for decompression -S/P sigmoid colectomy with end colostomy -Incentive spirometer -pain control Code(s): K56.2 - VOLVULUS (4) Stage 4 decubitus ulcer Assessment/Plan: -Vascular on board -reposition q2h -air mattress -drawsheets and Trendelenburg when repositioning to avoid friction and shear -manage incontinence in timely manner -offloading -pack sacral wound with moist kerlix and apply dressing -no surgical debridement at this time -pending consult from Plastic Surgery Code(s): L89.94 - PRESSURE ULCER OF UNSPECIFIED SITE, STAGE 4 (5) Abdominal distension Assessment/Plan: -GI and Surgery on board -CTAP shows moderate gasseous distention of a tortuous sigmoid colon, possibility of intermittent volvulus should be considered, inflammatory changes about the distal sigmoid and rectum suspicious for proctitis, suprapubic cystostomy tube with thickened urinary bladder, cystitis cannot be excluded cholelithiasis with no evidence of acute cholecystitis -Serial Abdominal xrays with lastest from 09/26/19 showing some decompression of sigmoid since 09/24/19 -Abdominal Xray shows persistent SBO -NGT discontinued -SBO ON XRAY--REPEAT AND GI FOLLOW UP Code(s): R14.0 - ABDOMINAL DISTENSION (GASEOUS) (6) Anemia Assessment/Plan: -Hg 8.3 -transfuse for Hg <7.0 to avoid fluid overload -Anemia panel show low Fe and TIBC -MVI Code(s): D64.9 - ANEMIA, UNSPECIFIED (7) HTN (hypertension) Assessment/Plan: -monitor BP -low Na diet Code(s): I10 - ESSENTIAL (PRIMARY) HYPERTENSION (8) Neurogenic bladder Assessment/Plan: -Urology on board -suprapubic catheter changed yesterday by Urology Code(s): N31.9 - NEUROMUSCULAR DYSFUNCTION OF BLADDER, UNSPECIFIED (9) UTI (urinary tract infection) Assessment/Plan: -ID on board -UA shows 3+ leuks, 3+ blood, 3+ -UC neg -afebrile -no antibiotic intervention at present, observe off Code(s): N39.0 - URINARY TRACT INFECTION, SITE NOT SPECIFIED Qualifiers: Hematuria presence: with hematuria (10) Hypernatremia Assessment/Plan: -Renal on board -monitor Na level daily Code(s): E87.0 - HYPEROSMOLALITY AND HYPERNATREMIA (11) Ileus, unspecified Assessment/Plan: -Abdominal Xray shows persistent SBO -NGT removed -pending repeat Abdominal Xray results -tolerating diet -GI on board Code(s): K56.7 - ILEUS, UNSPECIFIED (12) Elevated BUN Assessment/Plan: -BUN/Cr improving -improving after TPN held -Renal on board -continue with IV hydration Code(s): R79.9 - ABNORMAL FINDING OF BLOOD CHEMISTRY, UNSPECIFIED Condition: Stable - Instructions Referrals: Chapo Quintero MD [Staff Physician] - 1 Week Disposition: RETIREMENT FACILITY - Home Medications Comprehensive Discharge Medication List: Ambulatory Orders Nystatin Powder [Nystop Powder -] 15 gm TP BID 08/31/19 Amino Acids/Protein Hydrolys [Prosource No Carb Liquid Pkt] 30 ml PO BID@0800, 1730 packet 10/04/19 Amino Acids/Protein Hydrolys [Prosource No Carb Liquid Pkt] 30 ml PO BID@0800, 1730 packet 10/24/19 Heparin - 5,000 unit SQ TID vial 10/24/19 Metoclopramide HCl [Reglan -] 10 mg PO ACHS tablet 10/24/19 Pantoprazole Sodium [Protonix -] 40 mg PO DAILY tablet.ec 10/24/19 Simethicone [Mylicon -] 80 mg PO TID tab.chew 10/24/19 Acetaminophen [Tylenol .Regular Strength -] 650 mg PO Q6H PRN tablet 10/25/19
[2019-10-27] MEDS: PANTOPRAZOLE 40 MG TABLET PO SCH (10:35)
[2019-10-27] MEDS: AMINO ACIDS/PROTEIN HYDROLYS 30 ML LIQUID.PKT PO SCH ×2 (10:35→17:28)
[2019-10-27] MEDS: ACETAMINOPHEN 325 MG TABLET (FP) PO PRN ×2 (13:06→21:55)
[2019-10-28] MEDS: HEPARIN NA (PORCINE) 5,000 UNITS/ML 1ML VIAL SQ SCH ×3 (05:58→21:07)
[2019-10-28] MEDS: METOCLOPRAMIDE HCL 10 MG TABLET (FP) PO SCH ×4 (06:01→21:07)
[2019-10-28] MEDS: SIMETHICONE 80 MG TAB.CHEW (FP) PO SCH ×3 (06:01→21:07)
[2019-10-28] MEDS: AMINO ACIDS/PROTEIN HYDROLYS 30 ML LIQUID.PKT PO SCH ×2 (08:56→16:59)
[2019-10-28] MEDS: PANTOPRAZOLE 40 MG TABLET PO SCH (09:10)
--- NOTE | 2019-10-28 09:40 | DS ---
Physical Examination Vital Signs: Vital Signs Temperature 97.8 F 10/28/19 05:57 Pulse Rate 91 H 10/28/19 05:57 Respiratory Rate 18 10/28/19 05:57 Blood Pressure 148/83 10/28/19 05:57 O2 Sat by Pulse Oximetry (%) 98 10/27/19 20:25 Cardiovascular: Yes: S1, S2 Respiratory: Yes: Regular, CTA Bilaterally Gastrointestinal: Yes: Normal Bowel Sounds, Soft, Other (colostomy functioning) Labs: CBC, BMP 10/24/19 06:00 10/24/19 06:00 Discharge Summary Problems reviewed: Yes Reason For Visit: PRESSURE INJURY OF SKIN OF SACRAL REGION Current Active Problems Abdominal pain (Acute) Elevated BUN (Acute) Functional quadriplegia (Acute) Hypernatremia (Acute) Ileus, unspecified (Acute) Proctitis (Acute) Sigmoid volvulus (Acute) Stage 4 decubitus ulcer (Acute) Status post Kimmie procedure (Acute) Suprapubic catheter (Acute) Suprapubic pain (Acute) Hospital Course: - Problems (1) Abdominal pain Assessment/Plan: -GI and Surgery on board -CTAP shows moderate gasseous distention of a tortuous sigmoid colon, possibility of intermittent volvulus should be considered, inflammatory changes about the distal sigmoid and rectum suspicious for proctitis, suprapubic cystostomy tube with thickened urinary bladder, cystitis cannot be excluded cholelithiasis with no evidence of acute cholecystitis -Serial Abdominal xrays with lastest from 09/26/19 showing some decompression of sigmoid since 09/24/19 -pain control -Abdominal Xray shows persistent SBO--follow up orederd -SBO resolved, NGT removed Code(s): R10.9 - UNSPECIFIED ABDOMINAL PAIN Qualifiers: Abdominal location: generalized Qualified Code(s): R10.84 - Generalized abdominal pain (2) Functional quadriplegia Assessment/Plan: -PT -Fall risk precaution Code(s): R53.2 - FUNCTIONAL QUADRIPLEGIA (3) Sigmoid volvulus Assessment/Plan: -GI and Surgery on board -CTAP shows moderate gasseous distention of a tortuous sigmoid colon, possibility of intermittent volvulus should be considered, inflammatory changes about the distal sigmoid and rectum suspicious for proctitis, suprapubic cystostomy tube with thickened urinary bladder, cystitis cannot be excluded cholelithiasis with no evidence of acute cholecystitis -Serial Abdominal xrays with lastest SHOWING SBO--COLOSTOMY FUNCTIONING--GI FOLLOW UP -pain control -Rectal tube in for decompression -S/P sigmoid colectomy with end colostomy -Incentive spirometer -pain control Code(s): K56.2 - VOLVULUS (4) Stage 4 decubitus ulcer Assessment/Plan: -Vascular on board -reposition q2h -air mattress -drawsheets and Trendelenburg when repositioning to avoid friction and shear -manage incontinence in timely manner -offloading -pack sacral wound with moist kerlix and apply dressing -no surgical debridement at this time -pending consult from Plastic Surgery Code(s): L89.94 - PRESSURE ULCER OF UNSPECIFIED SITE, STAGE 4 (5) Abdominal distension Assessment/Plan: -GI and Surgery on board -CTAP shows moderate gasseous distention of a tortuous sigmoid colon, possibility of intermittent volvulus should be considered, inflammatory changes about the distal sigmoid and rectum suspicious for proctitis, suprapubic cystostomy tube with thickened urinary bladder, cystitis cannot be excluded cholelithiasis with no evidence of acute cholecystitis -Serial Abdominal xrays with lastest from 09/26/19 showing some decompression of sigmoid since 09/24/19 -Abdominal Xray shows persistent SBO -NGT discontinued -SBO ON XRAY--REPEAT AND GI FOLLOW UP Code(s): R14.0 - ABDOMINAL DISTENSION (GASEOUS) (6) Anemia Assessment/Plan: -Hg 8.3 -transfuse for Hg <7.0 to avoid fluid overload -Anemia panel show low Fe and TIBC -MVI Code(s): D64.9 - ANEMIA, UNSPECIFIED (7) HTN (hypertension) Assessment/Plan: -monitor BP -low Na diet Code(s): I10 - ESSENTIAL (PRIMARY) HYPERTENSION (8) Neurogenic bladder Assessment/Plan: -Urology on board -suprapubic catheter changed yesterday by Urology Code(s): N31.9 - NEUROMUSCULAR DYSFUNCTION OF BLADDER, UNSPECIFIED (9) UTI (urinary tract infection) Assessment/Plan: -ID on board -UA shows 3+ leuks, 3+ blood, 3+ -UC neg -afebrile -no antibiotic intervention at present, observe off Code(s): N39.0 - URINARY TRACT INFECTION, SITE NOT SPECIFIED Qualifiers: Hematuria presence: with hematuria (10) Hypernatremia Assessment/Plan: -Renal on board -monitor Na level daily Code(s): E87.0 - HYPEROSMOLALITY AND HYPERNATREMIA (11) Ileus, unspecified Assessment/Plan: -Abdominal Xray shows persistent SBO -NGT removed -pending repeat Abdominal Xray results -tolerating diet -GI on board Code(s): K56.7 - ILEUS, UNSPECIFIED (12) Elevated BUN Assessment/Plan: -BUN/Cr improving -improving after TPN held -Renal on board -continue with IV hydration Code(s): R79.9 - ABNORMAL FINDING OF BLOOD CHEMISTRY, UNSPECIFIED Condition: Stable - Instructions Referrals: Chapo Quintero MD [Staff Physician] - 1 Week Disposition: LONG TERM FACILITY - Home Medications Comprehensive Discharge Medication List: Ambulatory Orders Nystatin Powder [Nystop Powder -] 15 gm TP BID 08/31/19 Amino Acids/Protein Hydrolys [Prosource No Carb Liquid Pkt] 30 ml PO BID@0800, 1730 packet 10/04/19 Amino Acids/Protein Hydrolys [Prosource No Carb Liquid Pkt] 30 ml PO BID@0800, 1730 packet 10/24/19 Heparin - 5,000 unit SQ TID vial 10/24/19 Metoclopramide HCl [Reglan -] 10 mg PO ACHS tablet 10/24/19 Pantoprazole Sodium [Protonix -] 40 mg PO DAILY tablet.ec 10/24/19 Simethicone [Mylicon -] 80 mg PO TID tab.chew 10/24/19 Acetaminophen [Tylenol .Regular Strength -] 650 mg PO Q6H PRN tablet 10/25/19
[2019-10-29] MEDS: HEPARIN NA (PORCINE) 5,000 UNITS/ML 1ML VIAL SQ SCH ×3 (05:56→22:05)
[2019-10-29] MEDS: SIMETHICONE 80 MG TAB.CHEW (FP) PO SCH ×3 (05:56→22:05)
[2019-10-29] MEDS: METOCLOPRAMIDE HCL 10 MG TABLET (FP) PO SCH ×4 (06:00→22:05)
[2019-10-29] MEDS: PANTOPRAZOLE 40 MG TABLET PO SCH (09:59)
[2019-10-29] MEDS: AMINO ACIDS/PROTEIN HYDROLYS 30 ML LIQUID.PKT PO SCH ×2 (10:00→17:10)
--- NOTE | 2019-10-29 10:36 | PN ---
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 tolerating Full liquids -still c/o diffuse abdominal pain + Flatus in colostomy+ Stool Awaiting Discharge either to [place] or [facility] denied, awaiting appeal Patient is complicated with full care, colostomy, suprapubic cath+ stage 4 pressure ulcer + PICC line - Current Medication List Current Medications: Active Medications Acetaminophen (Tylenol -) 650 mg PO Q6H PRN PRN Reason: PAIN LEVEL 1-5 Last Admin: 10/27/19 21:55 Dose: 650 mg Amino Acids (Prosource No Carb Liquid Pkt) 30 ml PO BID@0800,1730 [facility] Last Admin: 10/29/19 10:00 Dose: 30 ml Benzocaine/Menthol (Cepacol Lozenge -) 1 each MM PRN PRN PRN Reason: SORE THROAT Last Admin: 10/01/19 18:37 Dose: 1 each Heparin Sodium (Porcine) (Heparin -) 5,000 unit SQ TID [facility] Last Admin: 10/29/19 05:56 Dose: 5,000 unit Metoclopramide HCl (Reglan -) 10 mg PO ACHS [facility] Last Admin: 10/29/19 06:00 Dose: 10 mg Ondansetron HCl (Zofran Injection) 4 mg IVPUSH Q6H PRN PRN Reason: NAUSEA Last Admin: 10/10/19 09:54 Dose: 4 mg Pantoprazole Sodium (Protonix -) 40 mg PO DAILY [facility] Last Admin: 10/29/19 09:59 Dose: 40 mg Simethicone (Mylicon -) 80 mg PO TID [facility] Last Admin: 10/29/19 05:56 Dose: 80 mg - Objective Vital Signs: Vital Signs Temperature 98.0 F 10/29/19 06:40 Pulse Rate 87 10/29/19 06:40 Respiratory Rate 18 10/29/19 06:40 Blood Pressure 123/54 L 10/29/19 06:40 O2 Sat by Pulse Oximetry (%) 98 10/28/19 20:57 Constitutional: Yes: No Distress, Calm, Cachectic Cardiovascular: Yes: Regular Rate and Rhythm Respiratory: Yes: Regular Gastrointestinal: Yes: Normal Bowel Sounds, Soft, Other (LLQ colostomy) Genitourinary: Yes: Other (Suprapubic catheter) Musculoskeletal: Yes: Muscle Weakness Extremities: Yes: Other (generalized atrophy) Edema: No Peripheral Pulses WNL: Yes Integumentary: Yes: Pressure Ulcer Wound/Incision: Yes: Dressing Dry and Intact Neurological: Yes: Alert, Oriented Psychiatric: Yes: Alert, Oriented Labs: CBC, BMP 10/24/19 06:00 10/24/19 06:00 INR, PTT INR 1.18 (0.83-1.09) H 09/29/19 09:37 Problem List - Problems (1) Elevated BUN Assessment/Plan: -resolved -Nephrology on board -tolerating soft diet Problems reviewed: Yes Code(s): R79.9 - ABNORMAL FINDING OF BLOOD CHEMISTRY, UNSPECIFIED Assessment/Plan (1) Abdominal pain Assessment/Plan: -GI and Surgery on board -pain control -Tolerating soft diet -Has PICC line Code(s): R10.9 - UNSPECIFIED ABDOMINAL PAIN Qualifiers: Abdominal location: generalized Qualified Code(s): R10.84 - Generalized abdominal pain (2) Functional quadriplegia Assessment/Plan: -PT -Fall risk precaution Code(s): R53.2 - FUNCTIONAL QUADRIPLEGIA (3) Sigmoid volvulus Assessment/Plan: -GI and Surgery on board -Last abd xray resolution -pain control -S/P sigmoid colectomy with end colostomy -Incentive spirometer -pain control Code(s): K56.2 - VOLVULUS (4) Stage 4 decubitus ulcer Assessment/Plan: -Vascular on board -reposition q2h -air mattress -drawsheets and Trendelenburg when repositioning to avoid friction and shear -manage incontinence in timely manner -offloading -pack sacral wound with moist kerlix and apply dressing -no surgical debridement at this time -Wound consult with Dr Stewart appreciated Code(s): L89.94 - PRESSURE ULCER OF UNSPECIFIED SITE, STAGE 4 (5) Abdominal distension Assessment/Plan: -GI and Surgery on board -Simethicone QID Code(s): R14.0 - ABDOMINAL DISTENSION (GASEOUS) (6) Anemia Assessment/Plan: -transfuse for Hg <7.0 to avoid fluid overload -Anemia panel show low Fe and TIBC -MVI Code(s): D64.9 - ANEMIA, UNSPECIFIED (7) HTN (hypertension) Assessment/Plan: -monitor BP -low Na diet Code(s): I10 - ESSENTIAL (PRIMARY) HYPERTENSION (8) Neurogenic bladder Assessment/Plan: -Urology on board -Supra-pubic catheter changed by Urology on 10/19/2019 Code(s): N31.9 - NEUROMUSCULAR DYSFUNCTION OF BLADDER, UNSPECIFIED (9) UTI (urinary tract infection) Assessment/Plan: -ID on board -UA shows 3+ leuks, 3+ blood, 3+ -UC neg -leukocytosis -afebrile -no antibiotic intervention at present, observe off Code(s): N39.0 - URINARY TRACT INFECTION, SITE NOT SPECIFIED Qualifiers: Hematuria presence: with hematuria (10) Hypernatremia Assessment/Plan: -Renal on board -monitor Na level daily Code(s): E87.0 - HYPEROSMOLALITY AND HYPERNATREMIA (11) Ileus, unspecified Assessment/Plan: -resolved -Soft diet -GI on board Code(s): K56.7 - ILEUS, UNSPECIFIED D/C planning
[2019-10-30] MEDS: HEPARIN NA (PORCINE) 5,000 UNITS/ML 1ML VIAL SQ SCH ×3 (06:49→22:13)
[2019-10-30] MEDS: METOCLOPRAMIDE HCL 10 MG TABLET (FP) PO SCH ×4 (06:50→22:13)
[2019-10-30] MEDS: SIMETHICONE 80 MG TAB.CHEW (FP) PO SCH ×3 (06:50→22:13)
--- NOTE | 2019-10-30 09:59 | PN ---
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 tolerating Full liquids -still c/o diffuse abdominal pain + Flatus in colostomy+ Stool Awaiting Discharge either to [facility] or [facility] denied, awaiting appeal Patient is complicated with full care, colostomy, suprapubic cath+ stage 4 pressure ulcer + PICC line - Current Medication List Current Medications: Active Medications Acetaminophen (Tylenol -) 650 mg PO Q6H PRN PRN Reason: PAIN LEVEL 1-5 Last Admin: 10/27/19 21:55 Dose: 650 mg Amino Acids (Prosource No Carb Liquid Pkt) 30 ml PO BID@0800,1730 [facility] Last Admin: 10/29/19 17:10 Dose: 30 ml Benzocaine/Menthol (Cepacol Lozenge -) 1 each MM PRN PRN PRN Reason: SORE THROAT Last Admin: 10/01/19 18:37 Dose: 1 each Heparin Sodium (Porcine) (Heparin -) 5,000 unit SQ TID [facility] Last Admin: 10/30/19 06:49 Dose: 5,000 unit Metoclopramide HCl (Reglan -) 10 mg PO ACHS [facility] Last Admin: 10/30/19 06:50 Dose: 10 mg Ondansetron HCl (Zofran Injection) 4 mg IVPUSH Q6H PRN PRN Reason: NAUSEA Last Admin: 10/10/19 09:54 Dose: 4 mg Pantoprazole Sodium (Protonix -) 40 mg PO DAILY [facility] Last Admin: 10/29/19 09:59 Dose: 40 mg Simethicone (Mylicon -) 80 mg PO TID [facility] Last Admin: 10/30/19 06:50 Dose: 80 mg - Objective Vital Signs: Vital Signs Temperature 98.0 F 10/30/19 07:48 Pulse Rate 88 10/30/19 07:48 Respiratory Rate 14 10/30/19 07:48 Blood Pressure 110/54 L 10/30/19 07:48 O2 Sat by Pulse Oximetry (%) 98 10/28/19 20:57 Constitutional: Yes: Well Nourished, No Distress, Calm Cardiovascular: Yes: Regular Rate and Rhythm Respiratory: Yes: Regular Gastrointestinal: Yes: Normal Bowel Sounds, Soft, Other (LLQ colostomy) Genitourinary: Yes: WNL, Other (supra-pubic catheter) Musculoskeletal: Yes: Muscle Weakness Edema: No Peripheral Pulses WNL: Yes Neurological: Yes: Alert, Oriented Psychiatric: Yes: Alert, Oriented Labs: CBC, BMP 10/24/19 06:00 10/24/19 06:00 INR, PTT INR 1.18 (0.83-1.09) H 09/29/19 09:37 Problem List - Problems (1) Elevated BUN Assessment/Plan: -resolved -Nephrology on board -tolerating soft diet Problems reviewed: Yes Code(s): R79.9 - ABNORMAL FINDING OF BLOOD CHEMISTRY, UNSPECIFIED Assessment/Plan (1) Abdominal pain Assessment/Plan: -GI and Surgery on board -pain control -Tolerating soft diet -Has PICC line Code(s): R10.9 - UNSPECIFIED ABDOMINAL PAIN Qualifiers: Abdominal location: generalized Qualified Code(s): R10.84 - Generalized abdominal pain (2) Functional quadriplegia Assessment/Plan: -PT -Fall risk precaution Code(s): R53.2 - FUNCTIONAL QUADRIPLEGIA (3) Sigmoid volvulus Assessment/Plan: -GI and Surgery on board -Last abd xray resolution -pain control -S/P sigmoid colectomy with end colostomy -Incentive spirometer -pain control Code(s): K56.2 - VOLVULUS (4) Stage 4 decubitus ulcer Assessment/Plan: -Vascular on board -reposition q2h -air mattress -drawsheets and Trendelenburg when repositioning to avoid friction and shear -manage incontinence in timely manner -offloading -pack sacral wound with moist kerlix and apply dressing -no surgical debridement at this time -Wound consult with Dr Stewart appreciated Code(s): L89.94 - PRESSURE ULCER OF UNSPECIFIED SITE, STAGE 4 (5) Abdominal distension Assessment/Plan: -GI and Surgery on board -Simethicone QID Code(s): R14.0 - ABDOMINAL DISTENSION (GASEOUS) (6) Anemia Assessment/Plan: -transfuse for Hg <7.0 to avoid fluid overload -Anemia panel show low Fe and TIBC -MVI Code(s): D64.9 - ANEMIA, UNSPECIFIED (7) HTN (hypertension) Assessment/Plan: -monitor BP -low Na diet Code(s): I10 - ESSENTIAL (PRIMARY) HYPERTENSION (8) Neurogenic bladder Assessment/Plan: -Urology on board -Supra-pubic catheter changed by Urology on 10/19/2019 Code(s): N31.9 - NEUROMUSCULAR DYSFUNCTION OF BLADDER, UNSPECIFIED (9) UTI (urinary tract infection) Assessment/Plan: -ID on board -UA shows 3+ leuks, 3+ blood, 3+ -UC neg -leukocytosis -afebrile -no antibiotic intervention at present, observe off Code(s): N39.0 - URINARY TRACT INFECTION, SITE NOT SPECIFIED Qualifiers: Hematuria presence: with hematuria (10) Hypernatremia Assessment/Plan: -Renal on board -monitor Na level daily Code(s): E87.0 - HYPEROSMOLALITY AND HYPERNATREMIA (11) Ileus, unspecified Assessment/Plan: -resolved -Soft diet -GI on board Code(s): K56.7 - ILEUS, UNSPECIFIED D/C planning
[2019-10-30] MEDS: PANTOPRAZOLE 40 MG TABLET PO SCH (10:43)
[2019-10-30] MEDS: AMINO ACIDS/PROTEIN HYDROLYS 30 ML LIQUID.PKT PO SCH ×2 (10:43→17:15)
[2019-10-30] MEDS: ACETAMINOPHEN 325 MG TABLET (FP) PO PRN (19:38)
[2019-10-31] MEDS: METOCLOPRAMIDE HCL 10 MG TABLET (FP) PO SCH ×4 (06:42→22:07)
[2019-10-31] MEDS: SIMETHICONE 80 MG TAB.CHEW (FP) PO SCH ×3 (06:42→22:07)
[2019-10-31] MEDS: HEPARIN NA (PORCINE) 5,000 UNITS/ML 1ML VIAL SQ SCH ×3 (06:42→22:07)
[2019-10-31] MEDS: AMINO ACIDS/PROTEIN HYDROLYS 30 ML LIQUID.PKT PO SCH ×2 (08:47→16:55)
--- NOTE | 2019-10-31 08:51 | PN ---
Progress Note (short form) - Note Progress Note: AWAITING AUTH FROM INSURANCE TO PLACE IN SNF TOLERATING PO SOFT DIET PT/OOB TO CHAIR Problem List - Problems (1) Abdominal pain Code(s): R10.9 - UNSPECIFIED ABDOMINAL PAIN Qualifiers: Abdominal location: generalized Qualified Code(s): R10.84 - Generalized abdominal pain (2) Functional quadriplegia Code(s): R53.2 - FUNCTIONAL QUADRIPLEGIA (3) Ileus, unspecified Code(s): K56.7 - ILEUS, UNSPECIFIED
[2019-10-31] MEDS: PANTOPRAZOLE 40 MG TABLET PO SCH (10:29)
[2019-10-31] MEDS: ACETAMINOPHEN 325 MG TABLET (FP) PO PRN (22:07)
[2019-11-01] MEDS: SIMETHICONE 80 MG TAB.CHEW (FP) PO SCH ×3 (06:17→21:27)
[2019-11-01] MEDS: HEPARIN NA (PORCINE) 5,000 UNITS/ML 1ML VIAL SQ SCH ×2 (06:17→14:55)
[2019-11-01] MEDS: METOCLOPRAMIDE HCL 10 MG TABLET (FP) PO SCH ×4 (06:17→21:27)
[2019-11-01] MEDS: AMINO ACIDS/PROTEIN HYDROLYS 30 ML LIQUID.PKT PO SCH ×2 (08:50→16:29)
[2019-11-01] MEDS: ONDANSETRON 4 MG/2 ML VIAL IVPUSH PRN (08:50)
--- NOTE | 2019-11-01 08:52 | PN ---
Progress Note, Physician Chief Complaint: IN BED AWAKE POOR APPETITE TODAY AWAITING AUTH FOR SNF PLACEMENT CONTINUE SKILLED NURSING CARE, WOUND CARE NUTRITION - Current Medication List Current Medications: Active Medications Acetaminophen (Tylenol -) 650 mg PO Q6H PRN PRN Reason: PAIN LEVEL 1-5 Last Admin: 10/31/19 22:07 Dose: 650 mg Amino Acids (Prosource No Carb Liquid Pkt) 30 ml PO BID@0800,1730 [facility] Last Admin: 10/31/19 16:55 Dose: 30 ml Benzocaine/Menthol (Cepacol Lozenge -) 1 each MM PRN PRN PRN Reason: SORE THROAT Last Admin: 10/01/19 18:37 Dose: 1 each Heparin Sodium (Porcine) (Heparin -) 5,000 unit SQ TID [facility] Last Admin: 11/01/19 06:17 Dose: 5,000 unit Metoclopramide HCl (Reglan -) 10 mg PO ACHS [facility] Last Admin: 11/01/19 06:17 Dose: 10 mg Ondansetron HCl (Zofran Injection) 4 mg IVPUSH Q6H PRN PRN Reason: NAUSEA Last Admin: 10/10/19 09:54 Dose: 4 mg Pantoprazole Sodium (Protonix -) 40 mg PO DAILY [facility] Last Admin: 10/31/19 10:29 Dose: 40 mg Simethicone (Mylicon -) 80 mg PO TID [facility] Last Admin: 11/01/19 06:17 Dose: 80 mg - Objective Vital Signs: Vital Signs Temperature 98.5 F 11/01/19 06:00 Pulse Rate 92 H 11/01/19 06:00 Respiratory Rate 20 11/01/19 06:00 Blood Pressure 95/52 L 11/01/19 06:00 O2 Sat by Pulse Oximetry (%) 97 10/31/19 21:00 Constitutional: Yes: Mild Distress Cardiovascular: Yes: Regular Rate and Rhythm Respiratory: Yes: WNL Gastrointestinal: Yes: Soft Genitourinary: Yes: Rowe Present Musculoskeletal: Yes: Muscle Weakness Edema: No Integumentary: Yes: Pressure Ulcer Neurological: Yes: Pre-Existing Deficit, Weakness Labs: CBC, BMP 10/24/19 06:00 10/24/19 06:00 INR, PTT INR 1.18 (0.83-1.09) H 09/29/19 09:37 Problem List - Problems (1) Abdominal pain Code(s): R10.9 - UNSPECIFIED ABDOMINAL PAIN Qualifiers: Abdominal location: generalized Qualified Code(s): R10.84 - Generalized abdominal pain (2) Functional quadriplegia Code(s): R53.2 - FUNCTIONAL QUADRIPLEGIA (3) Ileus, unspecified Code(s): K56.7 - ILEUS, UNSPECIFIED Assessment/Plan WOUND CARE PT OOB TO CHAIR SNF PLACEMENT ENCOURAGE PO NUTRITION AND TOLERATING WELL
[2019-11-01] MEDS: PANTOPRAZOLE 40 MG TABLET PO SCH (10:39)
[2019-11-01 10:43] LABS: HEMATOCRIT 29.5 % (35.4-49); HEMOGLOBIN 9.4 GM/dL (11.7-16.9); MCH 26.6 pg (25.7-33.7); MCHC 31.8 g/dl (32.0-35.9); MEAN CELL VOLUME 83.8 fl (80-96); MEAN PLT VOLUME 6.5 fl (7.5-11.1); PLATELET COUNT 461 K/MM3 (134-434); RBC 3.52 M/mm3 (4.00-5.60); WHITE BLOOD COUNT 10.3 K/mm3 (4.0-10.0)
[2019-11-01 11:10] LABS: BLOOD UREA NITROGEN 85.4 mg/dL (7-18); CALCIUM 8.5 mg/dL (8.5-10.1); POTASSIUM 4.9 mmol/L (3.5-5.1)
[2019-11-02] MEDS: SIMETHICONE 80 MG TAB.CHEW (FP) PO SCH ×3 (05:34→21:36)
[2019-11-02] MEDS: METOCLOPRAMIDE HCL 10 MG TABLET (FP) PO SCH ×4 (06:14→21:37)
[2019-11-02] MEDS: AMINO ACIDS/PROTEIN HYDROLYS 30 ML LIQUID.PKT PO SCH ×2 (08:49→16:47)
--- NOTE | 2019-11-02 10:34 | PN ---
Progress Note, Physician Chief Complaint: AWAKE C/O RLQ ABDOMINAL APIN +NAUSEA - Current Medication List Current Medications: Active Medications Acetaminophen (Tylenol -) 650 mg PO Q6H PRN PRN Reason: PAIN LEVEL 1-5 Last Admin: 10/31/19 22:07 Dose: 650 mg Amino Acids (Prosource No Carb Liquid Pkt) 30 ml PO BID@0800,1730 [facility] Last Admin: 11/02/19 08:49 Dose: 30 ml Benzocaine/Menthol (Cepacol Lozenge -) 1 each MM PRN PRN PRN Reason: SORE THROAT Last Admin: 10/01/19 18:37 Dose: 1 each Metoclopramide HCl (Reglan -) 10 mg PO ACHS [facility] Last Admin: 11/02/19 06:14 Dose: 10 mg Ondansetron HCl (Zofran Injection) 4 mg IVPUSH Q6H PRN PRN Reason: NAUSEA Last Admin: 11/01/19 08:50 Dose: 4 mg Pantoprazole Sodium (Protonix -) 40 mg PO DAILY [facility] Last Admin: 11/01/19 10:39 Dose: 40 mg Simethicone (Mylicon -) 80 mg PO TID [facility] Last Admin: 11/02/19 05:34 Dose: 80 mg - Objective Vital Signs: Vital Signs Temperature 98.3 F 11/02/19 05:55 Pulse Rate 88 11/02/19 05:55 Respiratory Rate 20 11/02/19 05:55 Blood Pressure 103/54 L 11/02/19 05:55 O2 Sat by Pulse Oximetry (%) 100 11/01/19 20:34 Constitutional: Yes: Mild Distress Cardiovascular: Yes: Regular Rate and Rhythm Respiratory: Yes: Diminished, On Nasal O2 Genitourinary: Yes: Rowe Present Musculoskeletal: Yes: Muscle Weakness Edema: No Neurological: Yes: Paresthesia, Pre-Existing Deficit Labs: CBC, BMP 11/01/19 10:10 11/01/19 10:10 INR, PTT INR 1.18 (0.83-1.09) H 09/29/19 09:37 Problem List - Problems (1) Abdominal pain Code(s): R10.9 - UNSPECIFIED ABDOMINAL PAIN Qualifiers: Abdominal location: generalized Qualified Code(s): R10.84 - Generalized abdominal pain (2) Functional quadriplegia Code(s): R53.2 - FUNCTIONAL QUADRIPLEGIA (3) Ileus, unspecified Code(s): K56.7 - ILEUS, UNSPECIFIED Assessment/Plan ABD XRAY NOW R/O SBO/ILEUS ZOFRAN STAT WITH TYLENOL CHECK LABS NOW SURGERY F/U IF XRAY POSITIVE
[2019-11-02] MEDS ORDERED: PT OWN MED DRAWER 7, Y5N ONE (10:37)
[2019-11-02] MEDS: ACETAMINOPHEN 325 MG TABLET (FP) PO PRN (10:39)
[2019-11-02] MEDS: ONDANSETRON 4 MG/2 ML VIAL IVPUSH PRN (10:40)
[2019-11-02] MEDS: PANTOPRAZOLE 40 MG TABLET PO SCH (10:40)
[2019-11-02 12:57] LABS: HEMATOCRIT 28.1 % (35.4-49); MCH 27.3 pg (25.7-33.7); MEAN CELL VOLUME 85.1 fl (80-96); MEAN PLT VOLUME 6.6 fl (7.5-11.1); PLATELET COUNT 418 K/MM3 (134-434); RBC 3.31 M/mm3 (4.00-5.60); WHITE BLOOD COUNT 9.1 K/mm3 (4.0-10.0)
--- NOTE | 2019-11-02 13:29 | PN ---
Progress Note (short form) - Note Progress Note: Renal follow up for MARTINEZ Seen and examined at the bedside awake and alert reports poor appetite and mild abdominal discomfort no diarrhea or vomiting noted by nurse Vital Signs Temperature 97.9 F 11/02/19 11:00 Pulse Rate 82 11/02/19 11:00 Respiratory Rate 19 11/02/19 11:00 Blood Pressure 104/54 L 11/02/19 11:00 O2 Sat by Pulse Oximetry (%) 100 11/01/19 20:34 Intake & Output 10/30/19 10/31/19 11/01/19 11/02/19 23:59 23:59 23:59 23:59 Intake Total 320 750 820 540 Output Total 9987 327 3743 450 Balance -930 550 -180 90 NAD CTA soft NT/ND Abd no LE edema CBC, BMP 11/02/19 12:10 Current Medications Acetaminophen (Tylenol -) 650 mg PO Q6H PRN PRN Reason: PAIN LEVEL 1-5 Last Admin: 11/02/19 10:39 Dose: 650 mg Amino Acids (Prosource No Carb Liquid Pkt) 30 ml PO BID@0800,1730 [facility] Last Admin: 11/02/19 08:49 Dose: 30 ml Benzocaine/Menthol (Cepacol Lozenge -) 1 each MM PRN PRN PRN Reason: SORE THROAT Last Admin: 10/01/19 18:37 Dose: 1 each Sodium Chloride (Normal Saline -) 1,000 mls @ 100 mls/hr IV ASDIR [facility] Stop: 11/03/19 12:59 Metoclopramide HCl (Reglan -) 10 mg PO ACHS [facility] Last Admin: 11/02/19 10:40 Dose: 10 mg Ondansetron HCl (Zofran Injection) 4 mg IVPUSH Q6H PRN PRN Reason: NAUSEA Last Admin: 11/02/19 10:40 Dose: 4 mg Pantoprazole Sodium (Protonix -) 40 mg PO DAILY [facility] Last Admin: 11/02/19 10:40 Dose: 40 mg Simethicone (Mylicon -) 80 mg PO TID [facility] Last Admin: 11/02/19 05:34 Dose: 80 mg 73 year old Gentleman with history of Quadriplegia, neurogenic bladder with SPC , hypertension, DM who presented with recurrent sigmoid volvolus s/p Hartmans procedure with worsening renal function. 1. Acute kidney injury likely due to hypovolemia 2. Recurrent sigmoid volvolus s/p Hartmans procedure 3. Neurogenic bladder 4. Hypernatremia 5. Anemia 6. Prolonged NPO now requiring BUN/Cr rayna as noted on yesterdays labs. Todays labs pending suspect that he has some degree of intravascular volume depletion given his poor oral intake will give trial of isotonic saline for 24 hours. Arias Eubanks DO
[2019-11-02 13:44] LABS: ALBUMIN 1.9 g/dl (3.4-5.0); BILIRUBIN,TOTAL 0.1 mg/dL (0.2-1); CALCIUM 8.7 mg/dL (8.5-10.1); CREATININE 1.7 mg/dL (0.55-1.3); POTASSIUM 5.2 mmol/L (3.5-5.1); TOT PROT 6.1 g/dl (6.4-8.2)
[2019-11-02] MEDS: SODIUM CHLORIDE 1,000 ML IV SCH (13:55)
[2019-11-03] MEDS: SODIUM CHLORIDE 1,000 ML IV SCH (00:59)
[2019-11-03] MEDS: SIMETHICONE 80 MG TAB.CHEW (FP) PO SCH ×3 (05:32→21:56)
[2019-11-03] MEDS: METOCLOPRAMIDE HCL 10 MG TABLET (FP) PO SCH ×4 (06:08→21:56)
[2019-11-03] MEDS: PANTOPRAZOLE 40 MG TABLET PO SCH ×2 (08:52→10:03)
[2019-11-03] MEDS: AMINO ACIDS/PROTEIN HYDROLYS 30 ML LIQUID.PKT PO SCH ×2 (08:52→17:21)
--- NOTE | 2019-11-03 09:31 | PN ---
Progress Note, Physician Chief Complaint: Abdominal Pain Sigmoid Volvulus History of Present Illness: Previous notes and events reviewed awake and alert NAD continue with RLQ pain Abdominal xray shows possible obstruction vs high grade ileus complain of nausea and vomiting - Current Medication List Current Medications: Active Medications Acetaminophen (Tylenol -) 650 mg PO Q6H PRN PRN Reason: PAIN LEVEL 1-5 Last Admin: 11/02/19 10:39 Dose: 650 mg Amino Acids (Prosource No Carb Liquid Pkt) 30 ml PO BID@0800,1730 [facility] Last Admin: 11/03/19 08:52 Dose: 30 ml Benzocaine/Menthol (Cepacol Lozenge -) 1 each MM PRN PRN PRN Reason: SORE THROAT Last Admin: 10/01/19 18:37 Dose: 1 each Sodium Chloride (Normal Saline -) 1,000 mls @ 100 mls/hr IV ASDIR [facility] Stop: 11/03/19 12:59 Last Admin: 11/03/19 00:59 Dose: 100 mls/hr Metoclopramide HCl (Reglan -) 10 mg PO ACHS [facility] Last Admin: 11/03/19 06:08 Dose: 10 mg Ondansetron HCl (Zofran Injection) 4 mg IVPUSH Q6H PRN PRN Reason: NAUSEA Last Admin: 11/02/19 10:40 Dose: 4 mg Pantoprazole Sodium (Protonix -) 40 mg PO DAILY [facility] Last Admin: 11/03/19 08:52 Dose: 40 mg Simethicone (Mylicon -) 80 mg PO TID [facility] Last Admin: 11/03/19 05:32 Dose: 80 mg - Objective Vital Signs: Vital Signs Temperature 97.8 F 11/03/19 08:49 Pulse Rate 80 11/03/19 08:49 Respiratory Rate 18 11/03/19 08:49 Blood Pressure 116/50 L 11/03/19 08:49 O2 Sat by Pulse Oximetry (%) 100 11/02/19 20:02 Constitutional: Yes: No Distress, Calm Eyes: Yes: Conjunctiva Clear HENT: Yes: Atraumatic Cardiovascular: Yes: Regular Rate and Rhythm Respiratory: Yes: Regular, Diminished, On Nasal O2 Gastrointestinal: Yes: Soft, Hypoactive Bowel Sounds, Tenderness (rlq), Other ( colostomy, no stool noted in bag) Genitourinary: Yes: Other (suprapubic catheter) Musculoskeletal: Yes: Muscle Weakness Extremities: Yes: WNL Edema: No Neurological: Yes: Alert, Pre-Existing Deficit Psychiatric: Yes: Alert Labs: CBC, BMP 11/02/19 12:10 11/02/19 12:10 INR, PTT INR 1.18 (0.83-1.09) H 09/29/19 09:37 Microbiology 09/23/19 06:00 Wound Gram Stain - Final 09/23/19 06:00 Wound Wound Culture - Final 09/22/19 21:40 Urine - Urine Rowe Urine Culture - Final NO GROWTH OBTAINED Problem List - Problems (1) Abdominal pain Assessment/Plan: -GI and Surgery on board -CTAP shows moderate gasseous distention of a tortuous sigmoid colon, possibility of intermittent volvulus should be considered, inflammatory changes about the distal sigmoid and rectum suspicious for proctitis, suprapubic cystostomy tube with thickened urinary bladder, cystitis cannot be excluded cholelithiasis with no evidence of acute cholecystitis -Serial Abdominal xrays with lastest from 09/26/19 showing some decompression of sigmoid since 09/24/19 -pain control -Abdominal Xray shows persistent SBO -SBO resolved, NGT removed -Abdominal Xray 11/02/19 shows recommend nasogastric decompression and placement of oral contrast through NGT with follow up CT scan to evaluate high grade ileus vs partial obstruction, limited assessment with plain radiographs -re-consult Surgery Code(s): R10.9 - UNSPECIFIED ABDOMINAL PAIN Qualifiers: Abdominal location: generalized Qualified Code(s): R10.84 - Generalized abdominal pain (2) Functional quadriplegia Assessment/Plan: -PT -Fall risk precaution Code(s): R53.2 - FUNCTIONAL QUADRIPLEGIA (3) Sigmoid volvulus Assessment/Plan: -GI and Surgery on board -CTAP shows moderate gasseous distention of a tortuous sigmoid colon, possibility of intermittent volvulus should be considered, inflammatory changes about the distal sigmoid and rectum suspicious for proctitis, suprapubic cystostomy tube with thickened urinary bladder, cystitis cannot be excluded cholelithiasis with no evidence of acute cholecystitis -Serial Abdominal xrays with lastest from 09/26/19 showing some decompression of sigmoid since 09/24/19 -pain control -Rectal tube in for decompression -s/p sigmoid colectomy with end colostomy -Abdominal Xray 11/02/19 shows recommend nasogastric decompression and placement of oral contrast through NGT with follow up CT scan to evaluate high grade ileus vs partial obstruction, limited assessment with plain radiographs Code(s): K56.2 - VOLVULUS (4) Stage 4 decubitus ulcer Assessment/Plan: -Vascular on board -reposition q2h -air mattress -drawsheets and Trendelenburg when repositioning to avoid friction and shear -manage incontinence in timely manner -offloading -pack sacral wound with moist kerlix and apply dressing -no surgical debridement at this time -pending consult from Plastic Surgery Code(s): L89.94 - PRESSURE ULCER OF UNSPECIFIED SITE, STAGE 4 (5) Abdominal distension Assessment/Plan: -GI and Surgery on board -CTAP shows moderate gasseous distention of a tortuous sigmoid colon, possibility of intermittent volvulus should be considered, inflammatory changes about the distal sigmoid and rectum suspicious for proctitis, suprapubic cystostomy tube with thickened urinary bladder, cystitis cannot be excluded cholelithiasis with no evidence of acute cholecystitis -Serial Abdominal xrays with lastest from 09/26/19 showing some decompression of sigmoid since 09/24/19 -Abdominal Xray shows persistent SBO -NGT discontinued -SBO resolved -Abdominal Xray 11/02/19 shows recommend nasogastric decompression and placement of oral contrast through NGT with follow up CT scan to evaluate high grade ileus vs partial obstruction, limited assessment with plain radiographs -reconsult for Surgery placed Code(s): R14.0 - ABDOMINAL DISTENSION (GASEOUS) (6) Anemia Assessment/Plan: -Hg 9.0 -monitor Hg daily -transfuse for Hg <7.0 to avoid fluid overload -Anemia panel show low Fe and TIBC -MVI Code(s): D64.9 - ANEMIA, UNSPECIFIED (7) HTN (hypertension) Assessment/Plan: -monitor BP -low Na diet Code(s): I10 - ESSENTIAL (PRIMARY) HYPERTENSION (8) Neurogenic bladder Assessment/Plan: -Urology on board -suprapubic catheter Code(s): N31.9 - NEUROMUSCULAR DYSFUNCTION OF BLADDER, UNSPECIFIED (9) UTI (urinary tract infection) Assessment/Plan: -ID on board -UA shows 3+ leuks, 3+ blood, 3+ -UC neg -leukocytosis -afebrile -no antibiotic intervention at present, observe off Code(s): N39.0 - URINARY TRACT INFECTION, SITE NOT SPECIFIED Qualifiers: Hematuria presence: with hematuria (10) Hypernatremia Assessment/Plan: -Na 143 -resolved -Renal on board -monitor Na level daily Code(s): E87.0 - HYPEROSMOLALITY AND HYPERNATREMIA (11) Ileus, unspecified Assessment/Plan: -Abdominal Xray shows persistent SBO -NGT removed -pending repeat Abdominal Xray results -soft diet -SBO resolved -GI on board -Abdominal Xray 11/02/19 shows recommend nasogastric decompression and placement of oral contrast through NGT with follow up CT scan to evaluate high grade ileus vs partial obstruction, limited assessment with plain radiographs Code(s): K56.7 - ILEUS, UNSPECIFIED (12) Elevated BUN Assessment/Plan: -BUN/Cr 86.0/1.7 -improving after TPN held -Renal on board -continue with IV hydration Code(s): R79.9 - ABNORMAL FINDING OF BLOOD CHEMISTRY, UNSPECIFIED Assessment/Plan see problem list dvt ppx Upon discharge patient will be going home with S homecare, due to his pressure ulcers patient will need a Group 2 air mattress, patient is limited mobility and is unable to reposition himself
[2019-11-03] MEDS: ACETAMINOPHEN 325 MG TABLET (FP) PO PRN (10:02)
[2019-11-03 10:17] LABS: ALBUMIN 1.7 g/dl (3.4-5.0); BILIRUBIN,TOTAL 0.2 mg/dL (0.2-1); BLOOD UREA NITROGEN 79.2 mg/dL (7-18); CALCIUM 8.3 mg/dL (8.5-10.1); CREATININE 1.5 mg/dL (0.55-1.3); TOT PROT 5.4 g/dl (6.4-8.2)
--- NOTE | 2019-11-03 17:09 | PN ---
Progress Note (short form) - Note Progress Note: Attending Surgeon POD#34 Seen in f/u; tolerating diet; no overt c/o as best as I can ascertain VSS AF abdo-soft w/slight tympany; ostomy viable and functioning w/gas and stool in the ostomy bag; wound is healed; o/w negative. AXR reviewed and again it does not correlate w/the clinical picture. IMP: doing well PLAN: No further surgical f/u is indicatedl nor are any other imaging studies. Chapo Quintero MD FACS
[2019-11-04] MEDS: SIMETHICONE 80 MG TAB.CHEW (FP) PO SCH ×2 (06:50→13:51)
[2019-11-04] MEDS: METOCLOPRAMIDE HCL 10 MG TABLET (FP) PO SCH ×2 (06:51→10:43)
[2019-11-04] MEDS: PANTOPRAZOLE 40 MG TABLET PO SCH (09:21)
[2019-11-04] MEDS: AMINO ACIDS/PROTEIN HYDROLYS 30 ML LIQUID.PKT PO SCH (09:21)
--- NOTE | 2019-11-04 09:53 | DS ---
Physical Examination Vital Signs: Vital Signs Temperature 98.9 F 11/04/19 08:10 Pulse Rate 88 11/04/19 08:10 Respiratory Rate 16 11/04/19 08:10 Blood Pressure 122/67 11/04/19 08:10 O2 Sat by Pulse Oximetry (%) 100 11/03/19 21:00 Findings/Remarks: Laboratory Last Values WBC 9.1 K/mm3 (4.0-10.0) 11/02/19 12:10 RBC 3.31 M/mm3 (4.00-5.60) L 11/02/19 12:10 Hgb 9.0 GM/dL (11.7-16.9) L 11/02/19 12:10 Hct 28.1 % (35.4-49) L 11/02/19 12:10 MCV 85.1 fl (80-96) 11/02/19 12:10 MCH 27.3 pg (25.7-33.7) 11/02/19 12:10 MCHC 32.0 g/dl (32.0-35.9) 11/02/19 12:10 RDW 17.0 % (11.9-15.9) H 11/02/19 12:10 Plt Count 418 K/MM3 (134-434) 11/02/19 12:10 MPV 6.6 fl (7.5-11.1) L 11/02/19 12:10 Absolute Neuts (auto) 5.2 K/mm3 (1.5-8.0) 10/24/19 06:00 Neutrophils % 71.5 % (42.8-82.8) 10/24/19 06:00 Lymphocytes % 12.8 % (8-40) 10/24/19 06:00 Monocytes % 7.5 % (3.8-10.2) 10/24/19 06:00 Eosinophils % 7.6 % (0-4.5) H 10/24/19 06:00 Basophils % 0.6 % (0-2.0) 10/24/19 06:00 Nucleated RBC % 0 % (0-0) 10/24/19 06:00 PT with INR 13.90 SEC (9.7-13.0) H 09/29/19 09:37 INR 1.18 (0.83-1.09) H 09/29/19 09:37 Anticoagulation Therapy No Result Required. 10/14/19 11:35 Puncture Site Right radial 10/14/19 11:35 ABG pH 7.39 (7.35-7.45) 10/14/19 11:35 ABG pCO2 at Pt Temp 34.9 mmHg (35-45) L 10/14/19 11:35 ABG pO2 at Pt Temp 85.9 mmHg (80-100) 10/14/19 11:35 ABG HCO3 20.4 mmol/L (22-27) L 10/14/19 11:35 ABG O2 Sat (Measured) 96.0 % (95-98) 10/14/19 11:35 ABG O2 Content 13.5 % vol 10/14/19 11:35 ABG Base Excess -3.6 meq/l (-2-2) L 10/14/19 11:35 Rafi Test Positive 10/14/19 11:35 O2 Delivery Device No Result Required. 10/14/19 11:35 Oxygen Flow Rate No 10/14/19 11:35 Vent Mode No Result Required. 10/14/19 11:35 Vent Rate No Result Required. 10/14/19 11:35 Mechanical Rate No Result Required. 10/14/19 11:35 Pressure Support Vent No Result Required. 10/14/19 11:35 Sodium 141 mmol/L (136-145) 11/03/19 09:00 Potassium 5.0 mmol/L (3.5-5.1) 11/03/19 09:00 Chloride 112 mmol/L (98-107) H 11/03/19 09:00 Carbon Dioxide 24 mmol/L (21-32) 11/03/19 09:00 Anion Gap 4 MMOL/L (8-16) L 11/03/19 09:00 BUN 79.2 mg/dL (7-18) H 11/03/19 09:00 Creatinine 1.5 mg/dL (0.55-1.3) H 11/03/19 09:00 Est GFR (CKD-EPI)AfAm 51.67 11/03/19 09:00 Est GFR (CKD-EPI)NonAf 44.58 11/03/19 09:00 POC Glucometer 94 UNITS (80-120) 10/24/19 05:20 Random Glucose 165 mg/dL (74-106) H 11/03/19 09:00 Lactic Acid 1.1 mmol/L (0.4-2.0) 11/02/19 12:10 Calcium 8.3 mg/dL (8.5-10.1) L 11/03/19 09:00 Phosphorus 2.5 mg/dL (2.5-4.9) 10/22/19 07:30 Magnesium 2.0 mg/dL (1.8-2.4) 10/22/19 07:30 Iron 16 ug/dL (50-175) L 09/24/19 06:00 TIBC 216 ug/dL (250-450) L 09/24/19 06:00 Iron Saturation 7 % (17.5-39) L 09/24/19 06:00 Unsaturated IBC 200 ug/dL (200-275) 09/24/19 06:00 Total Bilirubin 0.2 mg/dL (0.2-1) 11/03/19 09:00 AST 9 U/L (15-37) L 11/03/19 09:00 ALT 13 U/L (13-61) 11/03/19 09:00 Alkaline Phosphatase 68 U/L (45-117) 11/03/19 09:00 Creatine Kinase 36 U/L (26-308) 10/14/19 06:25 Troponin I < 0.02 ng/ml (0.00-0.05) 10/14/19 06:25 Total Protein 5.4 g/dl (6.4-8.2) L 11/03/19 09:00 Albumin 1.7 g/dl (3.4-5.0) L 11/03/19 09:00 Triglycerides 132 mg/dL (0-150) 10/17/19 07:10 Cholesterol 92 mg/dL (50-200) 10/12/19 08:08 Total LDL Cholesterol 37 mg/dL (5-100) 10/12/19 08:08 HDL Cholesterol 41 mg/dL (40-60) 10/12/19 08:08 Total Amylase 51 U/L (25-115) 09/22/19 21:35 Lipase 99 U/L (73-393) 09/22/19 21:35 Vitamin B12 1171 pg/ml (193-986) H 01/01/20 08:08 Serum Folate 14 ng/mL (3.1-17.5) 10/12/19 08:08 Urine Color [place] 09/22/19 21:40 Urine Appearance Turbid 09/22/19 21:40 Urine pH 6.0 (5.0-8.0) 09/22/19 21:40 Ur Specific [place] 1.014 (1.010-1.035) 09/22/19 21:40 Urine Protein 3+ (NEGATIVE) H 09/22/19 21:40 Urine Glucose (UA) Negative (NEGATIVE) 09/22/19 21:40 Urine Ketones Negative (NEGATIVE) 09/22/19 21:40 Urine Blood 3+ (NEGATIVE) H 09/22/19 21:40 Urine Nitrite Negative (NEGATIVE) 09/22/19 21:40 Urine Bilirubin Negative (NEGATIVE) 09/22/19 21:40 Urine Urobilinogen 0.2 mg/dL (0.2-1.0) 09/22/19 21:40 Ur Leukocyte Esterase 3+ (NEGATIVE) H 09/22/19 21:40 Urine WBC (Auto) 250 /hpf (0-5) 09/22/19 21:40 Urine RBC (Auto) 414 /hpf (0-4) 09/22/19 21:40 Urine Casts (Auto) 23 /lpf (0-8) 09/22/19 21:40 U Pathogenic Cast Auto None seen /lpf (NEGATIVE) 09/22/19 21:40 U Epithel Cells (Auto) 2.5 /HPF (0-5/HPF) 09/22/19 21:40 Urine Bacteria (Auto) 367.4 /hpf (NEGATIVE) 09/22/19 21:40 Urine Yeast (Auto) Few (NEGATIVE) 09/22/19 21:40 Urine Eosinophils None seen % (.) 10/19/19 06:00 Ur Random Creatinine 57.0 mg/dL (30-150) 10/18/19 12:48 Ur Random Sodium 21 MMOL/L (40-220) L 10/18/19 14:19 Blood Type A POSITIVE 09/29/19 09:37 Antibody Screen Negative 09/29/19 09:37 Crossmatch IS Only See Detail 09/29/19 09:37 Home Medication List Medication Instructions Recorded Confirmed Type Nystatin Powder [Nystop Powder -] 15 gm TP BID 08/31/19 09/22/19 History Active Medications Generic Name Dose Route Start Last Admin Trade Name Vladimirq PRN Reason Stop Dose Admin Acetaminophen 650 mg 10/24/19 20:49 11/03/19 10:02 Tylenol - PO 650 mg Q6H PRN Administration PAIN LEVEL 1-5 Amino Acids 30 ml 10/21/19 17:30 11/04/19 09:21 Prosource No Carb Liquid Pkt PO 30 ml BID@0800,1730 LENORA Administration Benzocaine/Menthol 1 each 10/01/19 11:02 10/01/19 18:37 Cepacol Lozenge - MM 1 each PRN PRN Administration SORE THROAT Metoclopramide HCl 10 mg 10/24/19 11:00 11/04/19 06:51 Reglan - PO 10 mg ACHS LENORA Administration Ondansetron HCl 4 mg 10/10/19 08:37 11/02/19 10:40 Zofran Injection IVPUSH 4 mg Q6H PRN Administration NAUSEA Pantoprazole Sodium 40 mg 10/24/19 10:00 11/04/19 09:21 Protonix - PO 40 mg DAILY LENORA Administration Simethicone 80 mg 10/20/19 14:00 11/04/19 06:50 Mylicon - PO 80 mg TID LENORA Administration Microbiology 09/23/19 06:00 Wound Gram Stain - Final 09/23/19 06:00 Wound Wound Culture - Final 09/22/19 21:40 Urine - Urine Rowe Urine Culture - Final NO GROWTH OBTAINED Constitutional: Yes: No Distress, Calm Eyes: Yes: Conjunctiva Clear HENT: Yes: Atraumatic Cardiovascular: Yes: Regular Rate and Rhythm Respiratory: Yes: Regular, Diminished, On Nasal O2 Gastrointestinal: Yes: Normal Bowel Sounds, Soft, Other (colostomy) Musculoskeletal: Yes: Muscle Weakness Extremities: Yes: WNL Edema: No Integumentary: Yes: Pressure Ulcer Neurological: Yes: Alert, Pre-Existing Deficit Psychiatric: Yes: Alert Labs: CBC, BMP 11/02/19 12:10 11/03/19 09:00 Discharge Summary Problems reviewed: Yes Reason For Visit: PRESSURE INJURY OF SKIN OF SACRAL REGION Current Active Problems Abdominal pain (Acute) Elevated BUN (Acute) Functional quadriplegia (Acute) Hypernatremia (Acute) Ileus, unspecified (Acute) Proctitis (Acute) Sigmoid volvulus (Acute) Stage 4 decubitus ulcer (Acute) Status post Kimmie procedure (Acute) Suprapubic catheter (Acute) Suprapubic pain (Acute) Hospital Course: - Problems (1) Abdominal pain Assessment/Plan: -GI and Surgery on board -CTAP shows moderate gasseous distention of a tortuous sigmoid colon, possibility of intermittent volvulus should be considered, inflammatory changes about the distal sigmoid and rectum suspicious for proctitis, suprapubic cystostomy tube with thickened urinary bladder, cystitis cannot be excluded cholelithiasis with no evidence of acute cholecystitis -Serial Abdominal xrays with lastest from 09/26/19 showing some decompression of sigmoid since 09/24/19 -pain control -Abdominal Xray shows persistent SBO--follow up orederd -SBO resolved, NGT removed Code(s): R10.9 - UNSPECIFIED ABDOMINAL PAIN Qualifiers: Abdominal location: generalized Qualified Code(s): R10.84 - Generalized abdominal pain (2) Functional quadriplegia Assessment/Plan: -PT -Fall risk precaution Code(s): R53.2 - FUNCTIONAL QUADRIPLEGIA (3) Sigmoid volvulus Assessment/Plan: -GI and Surgery on board -CTAP shows moderate gasseous distention of a tortuous sigmoid colon, possibility of intermittent volvulus should be considered, inflammatory changes about the distal sigmoid and rectum suspicious for proctitis, suprapubic cystostomy tube with thickened urinary bladder, cystitis cannot be excluded cholelithiasis with no evidence of acute cholecystitis -Serial Abdominal xrays with lastest SHOWING SBO--COLOSTOMY FUNCTIONING--GI FOLLOW UP -pain control -Rectal tube in for decompression -S/P sigmoid colectomy with end colostomy -Incentive spirometer -pain control Code(s): K56.2 - VOLVULUS (4) Stage 4 decubitus ulcer Assessment/Plan: -Vascular on board -reposition q2h -air mattress -drawsheets and Trendelenburg when repositioning to avoid friction and shear -manage incontinence in timely manner -offloading -pack sacral wound with moist kerlix and apply dressing -no surgical debridement at this time -pending consult from Plastic Surgery Code(s): L89.94 - PRESSURE ULCER OF UNSPECIFIED SITE, STAGE 4 (5) Abdominal distension Assessment/Plan: -GI and Surgery on board -CTAP shows moderate gasseous distention of a tortuous sigmoid colon, possibility of intermittent volvulus should be considered, inflammatory changes about the distal sigmoid and rectum suspicious for proctitis, suprapubic cystostomy tube with thickened urinary bladder, cystitis cannot be excluded cholelithiasis with no evidence of acute cholecystitis -Serial Abdominal xrays with lastest from 09/26/19 showing some decompression of sigmoid since 09/24/19 -Abdominal Xray shows persistent SBO -NGT discontinued -SBO ON XRAY--REPEAT AND GI FOLLOW UP Code(s): R14.0 - ABDOMINAL DISTENSION (GASEOUS) (6) Anemia Assessment/Plan: -Hg 8.3 -transfuse for Hg <7.0 to avoid fluid overload -Anemia panel show low Fe and TIBC -MVI Code(s): D64.9 - ANEMIA, UNSPECIFIED (7) HTN (hypertension) Assessment/Plan: -monitor BP -low Na diet Code(s): I10 - ESSENTIAL (PRIMARY) HYPERTENSION (8) Neurogenic bladder Assessment/Plan: -Urology on board -suprapubic catheter changed yesterday by Urology Code(s): N31.9 - NEUROMUSCULAR DYSFUNCTION OF BLADDER, UNSPECIFIED (9) UTI (urinary tract infection) Assessment/Plan: -ID on board -UA shows 3+ leuks, 3+ blood, 3+ -UC neg -afebrile -no antibiotic intervention at present, observe off Code(s): N39.0 - URINARY TRACT INFECTION, SITE NOT SPECIFIED Qualifiers: Hematuria presence: with hematuria (10) Hypernatremia Assessment/Plan: -Renal on board -monitor Na level daily Code(s): E87.0 - HYPEROSMOLALITY AND HYPERNATREMIA (11) Ileus, unspecified Assessment/Plan: -Abdominal Xray shows persistent SBO -NGT removed -pending repeat Abdominal Xray results -tolerating diet -GI on board Code(s): K56.7 - ILEUS, UNSPECIFIED (12) Elevated BUN Assessment/Plan: -BUN/Cr improving -improving after TPN held -Renal on board -continue with IV hydration Code(s): R79.9 - ABNORMAL FINDING OF BLOOD CHEMISTRY, UNSPECIFIED Condition: Stable - Instructions Diet, Activity, Other Instructions: follow up with PCP in 1 week Follow up with Surgery Dr Eagle as scheduled continue with medication as prescribed monitor CMP weekly to check BUN/Cr return to ER if develop severe pain, respiratory distress, chest pain Referrals: Chapo Eagle MD [Staff Physician] - 1 Week Disposition: RESIDENTIAL FACILITY - Home Medications Comprehensive Discharge Medication List: Ambulatory Orders Nystatin Powder [Nystop Powder -] 15 gm TP BID 08/31/19 Amino Acids/Protein Hydrolys [Prosource No Carb Liquid Pkt] 30 ml PO BID@0800, 1730 packet 10/04/19 Amino Acids/Protein Hydrolys [Prosource No Carb Liquid Pkt] 30 ml PO BID@0800, 1730 packet 10/24/19 Heparin - 5,000 unit SQ TID vial 10/24/19 Metoclopramide HCl [Reglan -] 10 mg PO ACHS tablet 10/24/19 Pantoprazole Sodium [Protonix -] 40 mg PO DAILY tablet.ec 10/24/19 Simethicone [Mylicon -] 80 mg PO TID tab.chew 10/24/19 Acetaminophen [Tylenol .Regular Strength -] 650 mg PO Q6H PRN tablet 10/25/19
[2019-11-04 13:55] VITALS: BP 120/56; PULSE 66; TEMP 98.6
== END 2019-11-04 17:49 | DRG 329 ==
LOC: JER 20:36 → JERBED 09-23 01:38 → J6S 09-23 04:47
PROVIDERS: ADMIT Family Medicine; ATTEND Family Medicine
PROC: 0DSN0ZZ Reposition Sigmoid Colon, Open Approach (ICD-10-PCS; 2019-09-30)
PROC: 0D1N0Z4 Bypass Sigmoid Colon to Cutaneous, Open Approach (ICD-10-PCS; 2019-09-30)
PROC: B518ZZA Fluoroscopy of Superior Vena Cava, Guidance (ICD-10-PCS; 2019-09-30)
PROC: 30233N1 Transfusion of Nonautologous Red Blood Cells into Peripheral Vein, Percutaneous Approach (ICD-10-PCS; 2019-09-30)
PROC: 0DTN0ZZ Resection of Sigmoid Colon, Open Approach (ICD-10-PCS; principal; 2019-09-30 08:00)
PROC: 02HV33Z Insertion of Infusion Device into Superior Vena Cava, Percutaneous Approach (ICD-10-PCS; 2019-10-11)
PROC: 3E0436Z Introduction of Nutritional Substance into Central Vein, Percutaneous Approach (ICD-10-PCS; 2019-10-11)
DX: K56.2 Volvulus (principal); L89.154 Pressure ulcer of sacral region, stage 4; R53.2 Functional quadriplegia; K86.1 Other chronic pancreatitis; N39.0 Urinary tract infection, site not specified; N17.9 Acute kidney failure, unspecified; E87.0 Hyperosmolality and hypernatremia; R64 Cachexia; Z68.1 Body mass index [BMI] 19.9 or less, adult; K91.30 Postprocedural intestinal obstruction, unspecified as to partial versus complete; N31.9 Neuromuscular dysfunction of bladder, unspecified; I10 Essential (primary) hypertension; E11.9 Type 2 diabetes mellitus without complications; D64.9 Anemia, unspecified; R10.9 Unspecified abdominal pain; K56.7 Ileus, unspecified; K62.89 Other specified diseases of anus and rectum; R10.2 Pelvic and perineal pain; R06.02 Shortness of breath; Z93.59 Other cystostomy status; R79.9 Abnormal finding of blood chemistry, unspecified
CPT/HCPCS: 36415; 36430; 36511; 36569; 36600; 71045-TC-FY; 74018-TC-FY; 74019-TC-FY; 74176-TC; 75820-TC-FY; 77001-TC-FY; 80048; 80053; 80061; 81003; 82150; 82550; 82565; 82607; 82746; 82803; 82962; 83540; 83550; 83605; 83690; 83721; 83735; 84100; 84300; 84478; 84484; 85025; 85027; 85610; 86850; 86900; 86901; 86922; 87070; 87086; 87205; 88307-TC; 93005; 93010; 93970-TC; 94760; 94761; 99283-25; C1751; J0131; J1644; J1756; J7030; P9038; P9058

== ENCOUNTER 2019-11-08 17:03 | Inpatient (IN) | payer MEDICARE, OTHER ==
[2019-11-08 19:02] LABS: EPI CELLS 5.3 /HPF (0-5/HPF); HYALINE CASTS 115 /lpf (0-8); PH,URINE >= 9.0 (5.0-8.0); URINE APPEARANCE TURBID; URINE BACTERIA 4372.3 /hpf (NEGATIVE); URINE BILIRUBIN NEGATIVE (NEGATIVE); URINE COLOR YELLOW; URINE GLUCOSE (UA) NEGATIVE (NEGATIVE); URINE KETONE NEGATIVE (NEGATIVE); URINE LEUK ESTERASE 3+ (NEGATIVE); URINE NITRITE NEGATIVE (NEGATIVE); URINE PROTEIN 3+ (NEGATIVE); URINE UROBILINOGEN 0.2 mg/dL (0.2-1.0); URINE WBC 428 /hpf (0-5)
--- NOTE | 2019-11-08 19:35 | PDOC ---
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 presents [facility] the ER from [facility] with abdominal pain. Pt. is not a very accurate historian and thinks he was discharged 2 wks ago insead of 5 days ago. Pt says he felt better after discharge, but has been having abdominal pain for the last 3-4 days. He reports colostomy bag has been draining stool.He denies any chills, night sweats , vomiting. 11/08/19 21:53 Past History - Past Medical History Allergies/Adverse Reactions: Allergies Allergy/AdvReac Type Severity Reaction Status Date / Time ciprofloxacin Allergy Verified 09/22/19 20:52 piperacillin [From Zosyn] Allergy Verified 09/22/19 20:52 tazobactam [From Zosyn] Allergy Verified 09/22/19 20:52 Penicillins AdvReac Verified 09/22/19 20:52 Home Medications: Ambulatory Orders Nystatin Powder [Nystop Powder -] 15 gm TP BID 08/31/19 Amino Acids/Protein Hydrolys [Prosource No Carb Liquid Pkt] 30 ml PO BID@0800, 1730 packet 10/24/19 Heparin - 5,000 unit SQ TID vial 10/24/19 Metoclopramide HCl [Reglan -] 10 mg PO ACHS tablet 10/24/19 Pantoprazole Sodium [Protonix -] 40 mg PO DAILY tablet.ec 10/24/19 Simethicone [Mylicon -] 80 mg PO TID tab.chew 10/24/19 Acetaminophen [Tylenol .Regular Strength -] 650 mg PO Q6H PRN tablet 10/25/19 Benzocaine/Menthol [Cepacol Sore Throat Lozenge] 1 each PO Q4H PRN 11/08/19 Anemia: Yes Asthma: No Cancer: No Cardiac Disorders: No CVA: No COPD: No CHF: No Dementia: No Diabetes: Yes GI Disorders: No Disorders: Yes (neurogenic bladder, suprapubic catheter) HTN: Yes Hypercholesterolemia: No Liver Disease: No Seizures: No Thyroid Disease: No - Surgical History Abdominal Surgery: Yes (Colostomy bag) Cardiac Surgery: Yes (IVC filter) GI Surgery: Yes (colostomy) - Immunization History Immunization Up to Date: No - Psycho Social/Smoking Cessation Hx Smoking History: Never smoked Have you smoked in the past 12 months: No Information on smoking cessation initiated: No Hx Alcohol Use: No Drug/Substance Use Hx: No Substance Use Type: None Hx Substance Use Treatment: No Review of Systems - Review of Systems Constitutional: No: Diaphoresis, Night Sweats HEENTM: No: Eye Pain, Blurred Vision Respiratory: No: Cough, Shortness of Breath Cardiac (ROS): No: Chest Pain, Lightheadedness ABD/GI: No: Nausea, Vomiting : Yes: Other (suprapubic catheter in place.) Integumentary: No: Flushing, Pruritus Neurological: No: Headache, Numbness *Physical Exam - Vital Signs Last Vital Signs Temp Pulse Resp BP Pulse Ox 99.0 F 66 16 158/65 98 11/08/19 18:01 11/08/19 18:29 11/08/19 18:29 11/08/19 18:29 11/08/19 18:29 - Physical Exam General Appearance: No: Apparent Distress HEENT: negative: MATILDE (only on the left. not right. ), Scleral Icterus (R), Scleral Icterus (L) Neck: negative: Rigid Respiratory/Chest: positive: Rales (in lung bases bilaterally). negative: Chest Tender, Respiratory Distress, Labored Respiration Cardiovascular: positive: Regular Rhythm, Regular Rate, S1, S2. negative: JVD, Murmur Gastrointestinal/Abdominal: positive: Normal Bowel Sounds, Soft, Tenderness ( diffuse tenderness to palpation.), Other (colostomy bag in palce on left lower abdomen. ostomy light red/no so pus/drainage. colostomy bag empty) Male Genitalia: negative: hematuria Musculoskeletal: positive: Decreased Range of Motion, Other (pt is functional quadriplegic. contractures of upper extremities bilaterally.) Integumentary: positive: Other (stage iv decubitus ulcer in sacrum. ulcer at left hip and lower back.) Neurologic: positive: Alert, Normal Response ED Treatment Course - LABORATORY CBC & Chemistry Diagram: 11/14/19 11:50 11/16/19 08:42 - ADDITIONAL ORDERS Additional order review: Laboratory Results 11/08/19 11/08/19 18:12 17:17 POC Glucometer 124 Urine Color Yellow Urine Appearance Turbid Urine pH >= 9.0 H D Ur Specific [place] 1.013 Urine Protein 3+ H Urine Glucose (UA) Negative Urine Ketones Negative Urine Blood 3+ H Urine Nitrite Negative Urine Bilirubin Negative Urine Urobilinogen 0.2 Ur Leukocyte Esterase 3+ H Urine WBC (Auto) 428 Urine Casts (Auto) 115 U Epithel Cells (Auto) 5.3 Urine Bacteria (Auto) 4372.3 11/08/19 17:17 POC Glucometer 124 Medical Decision Making - Medical Decision Making 11/08/19 21:56 74y/o M hx of significant for hx of quadiplegia, neurogenic bladder, suprapubic catheter, HTN, NIDDM, ivc filter, chronic ileus, 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 presents to the ER from [facility] with abdominal pain. cbc, cmp, ua, ekg, urine culture ct abdomen and pelvis with contrast. EKG normal sinus rhythm , t wave abnormality, anterolateral ischemia compared to EKG of 09/2019 no changes, t wave inversions present and still the same. 11/08/19 22:05 UA remarkable for +leukocyte esterase and bacteria. Dr. Quintero consulted and is aware of patient. no additional recommendations to our work up at this time. He will be seen by Dr. Quintero tomorrow 11/08/19 22:14 PT admitted to hospital 11/08/19 22:16 Discharge - Discharge Information Problems reviewed: Yes Clinical Impression/Diagnosis: UTI (urinary tract infection) Qualifiers: Urinary tract infection type: site unspecified Hematuria presence: with hematuria Qualified Code(s): N39.0 - Urinary tract infection, site not specified ; R31.9 - Hematuria, unspecified Condition: Stable - Follow up/Referral - Patient Discharge Instructions - Post Discharge Activity
[2019-11-08 19:43] LABS: BASO % 0.4 % (0-2.0); EOS % 16.8 % (0-4.5); HEMATOCRIT 24.3 % (35.4-49); HEMOGLOBIN 7.8 GM/dL (11.7-16.9); MCH 26.8 pg (25.7-33.7); MEAN CELL VOLUME 83.8 fl (80-96); MEAN PLT VOLUME 6.4 fl (7.5-11.1); MONO % 9.3 % (3.8-10.2); NEUT % 55.5 % (42.8-82.8); PLATELET COUNT 290 K/MM3 (134-434); RDW 15.6 % (11.9-15.9); WHITE BLOOD COUNT 6.1 K/mm3 (4.0-10.0)
[2019-11-08 20:10] LABS: ALBUMIN 1.6 g/dl (3.4-5.0); ALK PHOS 59 U/L (45-117); ANION GAP 5 MMOL/L (8-16); BILIRUBIN,TOTAL < 0.1 mg/dL (0.2-1); BLOOD UREA NITROGEN 48.4 mg/dL (7-18); CALCIUM 7.7 mg/dL (8.5-10.1); CHLORIDE 111 mmol/L (98-107); CO2 22 mmol/L (21-32); CREATININE 1.5 mg/dL (0.55-1.3); GLUCOSE,RANDOM 94 mg/dL (74-106); POTASSIUM 5.2 mmol/L (3.5-5.1); SGOT/AST 7 U/L (15-37); SGPT/ALT 11 U/L (13-61); SODIUM 139 mmol/L (136-145)
[2019-11-08 20:34] LABS: URINE CRYSTALS MODERATE /hpf; URINE RBC 25-30 /hpf (0-4); YEAST FEW (NEGATIVE)
[2019-11-08] MEDS ORDERED: ACETAMINOPHEN 1000 MG/100 ML VIAL (NON FORMULARY) IVPB ONE (21:01)
[2019-11-08] MEDS ORDERED: ACETAMINOPHEN INJECTION 100 ML IVPB ONE (21:07)
[2019-11-08] MEDS ORDERED: CEFAZOLIN 1 GM in DEXTROSE 5%-WATER - 50 ML IVPB ONE (21:23)
--- NOTE | 2019-11-08 22:01 | PDOC ---
Attending Attestation - Resident Resident Name: Azul Wagoner - ED Attending Attestation I have performed the following: I have examined & evaluated the patient, The case was reviewed & discussed with the resident, I agree w/resident's findings & plan, Exceptions are as noted - HPI HPI: 11/08/19 21:59 74-year-old male with a past medical history of sigmoid volvulus with recent admission to [facility] from September 23 with discharge only 4 days ago now sent from [facility] for abdominal pain - Physicial Exam PE: 11/08/19 22:01 Slender 74-year-old male brought in by ambulance from the [facility] Head normocephalic atraumatic Neck no JVD Lungs no wheezing or crackles Abdomen flat, colostomy bag was just changed so therefore is flat and empty, no rebound Skin warm and dry neuro patient is conversant but a very poor historian - Medical Decision Making 11/08/19 22:00 Patient was passing stool in his colostomy bag Abdomen has no rebound or guarding We did speak with Dr. Quintero will see the patient tomorrow but he said do not put in a consult for this patient he knows him very well and he feels that the [facility] facility is not that comfortable with him and therefore more likely to transfer him to ER if the pt has any complaints 11/08/19 22:02 According to EMS the family insisted patient come in because of his complaint of abdominal pain 11/08/19 22:03 UA is positive patient will be treated for a urinary tract infection CT pending, pt admitted to med/surg 11/09/19 01:48
[2019-11-08] MEDS ORDERED: SODIUM CHLORIDE 0.9% 500 ML INFUS.BAG IV ONE (22:09)
[2019-11-08] MEDS ORDERED: CEFAZOLIN 1 GM/D5W 1 GM/50 ML BAG ONE (22:13)
[2019-11-08] MEDS ORDERED: SODIUM CHLORIDE 1,000 ML IV SCH (23:00)
--- NOTE | 2019-11-08 23:00 | HP ---
CHIEF COMPLAINT:abdominal pain for 2-3days PCP:Dr. Vaughan HISTORY OF PRESENT ILLNESS: This is a 74y/o male with hx significant for quadriplegia, neurogenic bladder, suprapubic catheter, HTN, NIDDM, IVC filter, chronic ileus, sigmoid volvululs s /p sigmoid colon resection and colostomy 09/2019 and discharged to shelter 5 days ago who presents to the ER with abdominal pain for th past 2-3 days. Patient is minimally verbal on my evaluation and appears to be a poor historian , no family available at bedside. It was reported he felt better after discharge, but has been having abdominal pain for the last 3-4 days. It was reported colostomy bag has been draining stool. He denied fever, chills, night sweats, vomiting. Workup- lab findings notable for a normal WBC, mild hyperkalemia, anemia with hgb 7.8 and hemoglobin 24.3, creatinine 1.5 and UA with 3+ leukoesterase. Low grade temperature in ER. Patient being admitted to Medicine for medical management/treatment and evaluation with Surgery- Dr. Quintero for abdominal pain. ER course was notable for significant anemia, renal insufficiency, and abnormal UA w/ 3+ leukoesterase. 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 2018 Social History: Smoking:no Alcohol:no Drugs:no Allergies ciprofloxacin Allergy (Verified 09/22/19 20:52) piperacillin [From Zosyn] Allergy (Verified 09/22/19 20:52) tazobactam [From Zosyn] Allergy (Verified 09/22/19 20:52) Penicillins Adverse Reaction (Verified 09/22/19 20:52) HOME MEDICATIONS: Home Medications Medication Instructions Recorded Nystatin Powder [Nystop Powder -] 15 gm TP BID 08/31/19 Amino Acids/Protein Hydrolys 30 ml PO BID@0800,1730 packet 10/24/19 [Prosource No Carb Liquid Pkt] Heparin - 5,000 unit SQ TID vial 10/24/19 Metoclopramide HCl [Reglan -] 10 mg PO ACHS tablet 10/24/19 Pantoprazole Sodium [Protonix -] 40 mg PO DAILY tablet.ec 10/24/19 Simethicone [Mylicon -] 80 mg PO TID tab.chew 10/24/19 Acetaminophen [Tylenol .Regular 650 mg PO Q6H PRN tablet 10/25/19 Strength -] Benzocaine/Menthol [Cepacol Sore 1 each PO Q4H PRN 11/08/19 Throat Lozenge] REVIEW OF SYSTEMS CONSTITUTIONAL: Absent: fever, chills, diaphoresis, generalized weakness, malaise, loss of appetite, weight change HEENT: Absent: rhinorrhea, nasal congestion, throat pain, throat swelling, difficulty swallowing, mouth swelling, ear pain, eye pain, visual changes CARDIOVASCULAR: Absent: chest pain, syncope, palpitations, irregular heart rate, lightheadedness , peripheral edema RESPIRATORY: Absent: cough, shortness of breath, dyspnea with exertion, orthopnea, wheezing, stridor, hemoptysis GASTROINTESTINAL: Absent: abdominal pain, abdominal distension, nausea, vomiting, diarrhea, constipation, melena, hematochezia GENITOURINARY: Absent: dysuria, frequency, urgency, hesitancy, hematuria, flank pain, genital pain MUSCULOSKELETAL: Absent: myalgia, arthralgia, joint swelling, back pain, neck pain SKIN: Absent: rash, itching, pallor HEMATOLOGIC/IMMUNOLOGIC: Absent: easy bleeding, easy bruising, lymphadenopathy, frequent infections ENDOCRINE: Absent: unexplained weight gain, unexplained weight loss, heat intolerance, cold intolerance NEUROLOGIC: Absent: headache, focal weakness or paresthesias, dizziness, unsteady gait, seizure, mental status changes, bladder or bowel incontinence PSYCHIATRIC: Absent: anxiety, depression, suicidal or homicidal ideation, hallucinations. PHYSICAL EXAMINATION Vital Signs - 24 hr 11/08/19 11/08/19 11/08/19 17:20 17:26 18:01 Temperature 99.0 F Pulse Rate 74 76 Pulse Rate [ Left Apical] Respiratory 16 Rate Blood Pressure 100/50 L Blood Pressure [Left Arm] O2 Sat by Pulse 100 100 Oximetry (%) 11/08/19 11/08/19 18:29 19:20 Temperature 97.5 F L Pulse Rate Pulse Rate [ 66 70 Left Apical] Respiratory 16 15 Rate Blood Pressure Blood Pressure 158/65 106/50 L [Left Arm] O2 Sat by Pulse 98 100 Oximetry (%) GENERAL: awake, alert , minimally verbal , no acute distress HEAD: normal EYES: pupils equal, round and reactive to light, extraocular movements intact EARS, NOSE, THROAT: ears normal, nares patent, oropharynx clear NECK: no JVD LUNGS: breath sounds clear to auscultation bilaterally no wheezes no crackles no accessory muscle use HEART: regular rate and rhythm normal S1 and S2 ABDOMEN: nontender not distended colostomy bag in place w/ dressing CDI no erythema, odor or drainage MUSCULOSKELETAL: no movement to lower extremities UPPER EXTREMITIES: warm no cyanosis LOWER EXTREMITIES warm no pitting edema NEUROLOGICAL:no focal neuro deficits PSYCHIATRIC: cooperative SKIN: perfusing well Laboratory Results - last 24 hr 11/08/19 11/08/19 11/08/19 17:17 18:12 19:00 WBC 6.1 RBC 2.90 L Hgb 7.8 L Hct 24.3 L MCV 83.8 MCH 26.8 MCHC 32.0 RDW 15.6 Plt Count 290 D MPV 6.4 L Absolute Neuts (auto) 3.4 Neutrophils % 55.5 D Lymphocytes % 18.0 D Monocytes % 9.3 Eosinophils % 16.8 H D Basophils % 0.4 Nucleated RBC % 0 Sodium Potassium Chloride Carbon Dioxide Anion Gap BUN Creatinine Est GFR (CKD-EPI)AfAm Est GFR (CKD-EPI)NonAf POC Glucometer 124 Random Glucose Calcium Total Bilirubin AST ALT Alkaline Phosphatase Total Protein Albumin Urine Color Yellow Urine Appearance Turbid Urine pH >= 9.0 H D Ur Specific [place] 1.013 Urine Protein 3+ H Urine Glucose (UA) Negative Urine Ketones Negative Urine Blood 3+ H Urine Nitrite Negative Urine Bilirubin Negative Urine Urobilinogen 0.2 Ur Leukocyte Esterase 3+ H Urine WBC (Auto) 428 Urine RBC (Auto) 25-30 Urine Casts (Auto) 115 U Epithel Cells (Auto) 5.3 Urine Crystals (Auto) Moderate Urine Bacteria (Auto) 4372.3 Urine Yeast (Auto) Few 11/08/19 19:00 WBC RBC Hgb Hct MCV MCH MCHC RDW Plt Count MPV Absolute Neuts (auto) Neutrophils % Lymphocytes % Monocytes % Eosinophils % Basophils % Nucleated RBC % Sodium 139 Potassium 5.2 H Chloride 111 H Carbon Dioxide 22 Anion Gap 5 L BUN 48.4 H Creatinine 1.5 H Est GFR (CKD-EPI)AfAm 51.67 Est GFR (CKD-EPI)NonAf 44.58 POC Glucometer Random Glucose 94 Calcium 7.7 L Total Bilirubin < 0.1 L AST 7 L ALT 11 L Alkaline Phosphatase 59 Total Protein 5.0 L Albumin 1.6 L Urine Color Urine Appearance Urine pH Ur Specific [place] Urine Protein Urine Glucose (UA) Urine Ketones Urine Blood Urine Nitrite Urine Bilirubin Urine Urobilinogen Ur Leukocyte Esterase Urine WBC (Auto) Urine RBC (Auto) Urine Casts (Auto) U Epithel Cells (Auto) Urine Crystals (Auto) Urine Bacteria (Auto) Urine Yeast (Auto) ASSESSMENT /PLAN This is a 74y/o male with past medical history of quadriplegia, neurogenic bladder, suprapubic catheter, HTN, NIDDM, IVC filter, chronic ileus, 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 He presented with symptoms of abdominal pain for the past 2-3 days. 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 Singh --Surgery - Dr. Quintero consulted #2 Anemia hgb 7.8/hct 24.3, no hypotension Transfuse 1Unit PRBC #3 UTI UA with 3+ leukoesterase, 3+ blood and negative nitrite --continue with IV cefazolin --pending urine and blood cultures --ID consulted- Dr. Singh consulted #4 NIDDM accucheks before meals/bedtime insulin as per sliding scale #5 Hypertension Controlled on no meds #6 Renal Insufficiency Creatinine 1.5 (baseline creatinine range between 1.5-2.0) Start IVF NS@75cc/hr Continue to monitor renal studies #7 Hypocalemia Calcium supplementation ordered Recheck calcium level in am DVT Prophylaxsis has IVC filter lovenox SCD's FEN IVF NS@75cc/hr monitor electrolytes NPO Visit type - Emergency Visit Emergency Visit: Yes ED Registration Date: 11/08/19 Care time: The patient presented to the Emergency Department on the above date and was hospitalized for further evaluation of their emergent condition. - New Patient This patient is new to me today: Yes Date on this admission: 11/08/19 - Critical Care Critical Care patient: No
[2019-11-09] MEDS ORDERED: METOCLOPRAMIDE HCL 10 MG TABLET (FP) PO ONE ×2 (06:26→23:58)
[2019-11-09] MEDS: METOCLOPRAMIDE HCL 10 MG TABLET (FP) PO SCH ×3 (06:52→18:11)
[2019-11-09] MEDS: SIMETHICONE 80 MG TAB.CHEW (FP) PO SCH ×2 (06:52→13:37)
[2019-11-09] MEDS: INSULIN SLIDING SCALE (NOVOLOG) 1 VIAL SQ SCH ×2 (09:20→18:58)
[2019-11-09] MEDS ORDERED: PT OWN MED DRAWER 7, Y5N ONE (09:23)
[2019-11-09] MEDS: AMINO ACIDS/PROTEIN HYDROLYS 30 ML LIQUID.PKT PO SCH ×2 (10:02→18:11)
[2019-11-09] MEDS: CALCIUM CARBONATE 650 MG TABLET PO SCH (10:02)
[2019-11-09] MEDS: ENOXAPARIN NA (PORCINE) 30 MG/0.3 ML DISP.SYRIN SQ SCH (10:02)
[2019-11-09] MEDS: NYSTATIN POWDER 100,000 UNITS/GM - 15 GM TOPICAL POWDER TP SCH (10:02)
[2019-11-09] MEDS: PANTOPRAZOLE 40 MG TABLET PO SCH (10:02)
[2019-11-09] MEDS ORDERED: CEFAZOLIN 1 GM/D5W 1 GM/50 ML BAG ONE (10:57)
--- NOTE | 2019-11-09 11:01 | EKG ---
Test Reason : Blood Pressure : / mmHG Vent. Rate : 065 BPM Atrial Rate : 065 BPM P-R Int : 150 ms QRS Dur : 096 ms QT Int : 368 ms P-R-T Axes : 073 076 097 degrees QTc Int : 382 ms NORMAL SINUS RHYTHM T WAVE ABNORMALITY, CONSIDER ANTEROLATERAL ISCHEMIA ABNORMAL ECG WHEN COMPARED WITH ECG OF 22-SEP-2019 22:08, NO SIGNIFICANT CHANGE WAS FOUND Confirmed by Roberto Carlos Carrasco MD ([id number]) on 11/09/2019 11:00:48 AM Referred By: Confirmed By:Roberto Carlos Carrasco MD
--- NOTE | 2019-11-09 11:25 | PN ---
Progress Note, Physician Chief Complaint: UTI Anemia Abdominal Pain History of Present Illness: Previous notes and events reviewed awake and alert NAD receiving 1U PRBC transfusion for Hg 7.8 complain of RLQ pain - Current Medication List Current Medications: Active Medications Amino Acids (Prosource No Carb Liquid Pkt) 30 ml PO BID@0800,1730 [facility] Last Admin: 11/09/19 10:02 Dose: 30 ml Calcium Carbonate (Calcium Carbonate -) 650 mg PO DAILY [facility] Last Admin: 11/09/19 10:02 Dose: 650 mg Enoxaparin Sodium (Lovenox -) 30 mg SQ DAILY [facility] Last Admin: 11/09/19 10:02 Dose: 30 mg Sodium Chloride (Normal Saline -) 1,000 mls @ 75 mls/hr IV ASDIR [facility] Last Admin: 11/09/19 01:20 Dose: 75 mls/hr Cefazolin Sodium 500 mg/ (Dextrose) 50 mls @ 100 mls/hr IVPB BID [facility] Insulin Aspart (Novolog Vial Sliding Scale -) [facility] Protocol Last Admin: 11/09/19 09:20 Dose: Not Given Metoclopramide HCl (Reglan -) 10 mg PO ACHS [facility] Last Admin: 11/09/19 10:02 Dose: 10 mg Nystatin (Nystop Powder -) 1 applic TP BID [facility] Last Admin: 11/09/19 10:02 Dose: Not Given Pantoprazole Sodium (Protonix -) 40 mg PO DAILY [facility] Last Admin: 11/09/19 10:02 Dose: 40 mg Simethicone (Mylicon -) 80 mg PO TID [facility] Last Admin: 11/09/19 06:52 Dose: 80 mg - Objective Vital Signs: Vital Signs Temperature 98.1 F 11/09/19 10:00 Pulse Rate 65 11/09/19 10:00 Respiratory Rate 20 11/09/19 10:00 Blood Pressure 127/61 11/09/19 10:00 O2 Sat by Pulse Oximetry (%) 98 11/09/19 10:00 Constitutional: Yes: No Distress, Calm Eyes: Yes: Conjunctiva Clear HENT: Yes: Atraumatic Cardiovascular: Yes: Regular Rate and Rhythm Respiratory: Yes: Regular, Diminished, On Nasal O2 Gastrointestinal: Yes: Normal Bowel Sounds, Soft, Tenderness (RLQ), Other ( colostomy) Genitourinary: Yes: Rowe Present Musculoskeletal: Yes: Muscle Weakness Extremities: Yes: WNL Edema: No Wound/Incision: Yes: Dressing Dry and Intact (abdomen) Neurological: Yes: Alert, Oriented, Pre-Existing Deficit Psychiatric: Yes: Alert, Oriented Labs: CBC, BMP 11/08/19 19:00 11/08/19 19:00 Problem List - Problems (1) Abdominal pain Assessment/Plan: -CTAP shows pancreatic calcifications suspicious for chronic calcific pancreatitis, cholelithiasis, moderately severe left sided hydronephrosis and hydroureter without obvious obstructin, s/p suprapubic cystostomy tube distal portion of the tbe could be obstructing the L UVJ, marked thickening of urinary bladder and cystitis cannot be excluded, s/p rectosigmoid colostomy with no evidence of of bowel obstruction -Surgery consult -no leukocytosis -afebrile -Cefazolin -ID consult Code(s): R10.9 - UNSPECIFIED ABDOMINAL PAIN Qualifiers: Abdominal location: generalized Qualified Code(s): R10.84 - Generalized abdominal pain (2) Diabetes Assessment/Plan: -BGM ACHS -ISS -HgA1c -IV hydration 2/2 being NPO Code(s): E11.9 - TYPE 2 DIABETES MELLITUS WITHOUT COMPLICATIONS (3) Functional quadriplegia Assessment/Plan: -PT -Fall precaution Code(s): R53.2 - FUNCTIONAL QUADRIPLEGIA (4) HTN (hypertension) Assessment/Plan: -low Na diet -monitor BP Code(s): I10 - ESSENTIAL (PRIMARY) HYPERTENSION (5) Sacral decubitus ulcer, stage IV Assessment/Plan: -Plastics consult -turn q2h -offloading -CTAP shows large decubitis ulceration with prior coccygeal excision, acute/ chronic osteomyelitis cannot be excluded Code(s): L89.154 - PRESSURE ULCER OF SACRAL REGION, STAGE 4 (6) UTI (urinary tract infection) Assessment/Plan: -Urology consult -CTAP shows pancreatic calcifications suspicious for chronic calcific pancreatitis, cholelithiasis, moderately severe left sided hydronephrosis and hydroureter without obvious obstructin, s/p suprapubic cystostomy tube distal portion of the tbe could be obstructing the L UVJ, marked thickening of urinary bladder and cystitis cannot be excluded, s/p rectosigmoid colostomy with no evidence of of bowel obstruction -UA shows 3+ leuks, 3+ blood, 3+ protein -UC and BC pending -no leukocytosis -afebrile Code(s): N39.0 - URINARY TRACT INFECTION, SITE NOT SPECIFIED Qualifiers: Hematuria presence: with hematuria (7) Anemia Assessment/Plan: -Hg 7.8 -receiving 1U PRBC transfusion -monitor Hg daily -Anemia profile -Stool OB ordered -transfuse for Hg <8.0 Code(s): D64.9 - ANEMIA, UNSPECIFIED (8) Hydronephrosis Assessment/Plan: -Urology consult -CTAP shows pancreatic calcifications suspicious for chronic calcific pancreatitis, cholelithiasis, moderately severe left sided hydronephrosis and hydroureter without obvious obstructin, s/p suprapubic cystostomy tube distal portion of the tbe could be obstructing the L UVJ, marked thickening of urinary bladder and cystitis cannot be excluded, s/p rectosigmoid colostomy with no evidence of of bowel obstruction Code(s): N13.30 - UNSPECIFIED HYDRONEPHROSIS Assessment/Plan see problem list
[2019-11-09] MEDS: CEFAZOLIN 500 MG in DEXTROSE 5%-WATER - 50 ML IVPB SCH (12:22)
--- NOTE | 2019-11-09 14:23 | PN ---
Progress Note (short form) - Note Progress Note: ID consult dictated imp/reccd asked to see for abdominal pain/possible UTI no fevers, recently d/perfecto to CT after admission for abdominal distention- sigmoid volvulus requiring surgery with end colectomy he has history of bladder tumor and has a SPT as well now with abd pain- ct scan shows new hydronephrosis on the left no fevers normal WBC I suspect spt is obstructing the uvj junction he needs urology to evaluate the spt doubt UTI but continue cefazolin given the present obstruction prior urine culture last admission was negative Problem List - Problems (1) Abdominal pain Code(s): R10.9 - UNSPECIFIED ABDOMINAL PAIN Qualifiers: Abdominal location: generalized Qualified Code(s): R10.84 - Generalized abdominal pain (2) Hydronephrosis Code(s): N13.30 - UNSPECIFIED HYDRONEPHROSIS (3) UTI (urinary tract infection) Code(s): N39.0 - URINARY TRACT INFECTION, SITE NOT SPECIFIED Qualifiers: Urinary tract infection type: site unspecified Hematuria presence: with hematuria Qualified Code(s): N39.0 - Urinary tract infection, site not specified; R31.9 - Hematuria, unspecified
[2019-11-09] MEDS: DEXTROSE 5%-NORMAL SALINE 1,000 ML IV SCH (15:00)
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
[2019-11-10] MEDS: NYSTATIN POWDER 100,000 UNITS/GM - 15 GM TOPICAL POWDER TP SCH ×3 (00:53→23:15)
[2019-11-10] MEDS: SIMETHICONE 80 MG TAB.CHEW (FP) PO SCH ×4 (00:53→23:15)
[2019-11-10] MEDS: CEFAZOLIN 500 MG in DEXTROSE 5%-WATER - 50 ML IVPB SCH ×3 (00:53→23:15)
[2019-11-10] MEDS: METOCLOPRAMIDE HCL 10 MG TABLET (FP) PO SCH ×5 (00:53→23:15)
[2019-11-10 01:27] LABS: IRON SERUM 22 ug/dL (50-175); TOTAL IRON BINDING CAPACITY 175 ug/dL (250-450)
[2019-11-10] MEDS ORDERED: PT OWN MED DRAWER 7, Y5N ONE (07:59)
[2019-11-10 08:13] LABS: HEMATOCRIT 29.8 % (35.4-49); HEMOGLOBIN 9.6 GM/dL (11.7-16.9); MCH 27.3 pg (25.7-33.7); MCHC 32.4 g/dl (32.0-35.9); MEAN CELL VOLUME 84.5 fl (80-96); MEAN PLT VOLUME 6.5 fl (7.5-11.1); PLATELET COUNT 282 K/MM3 (134-434); RBC 3.53 M/mm3 (4.00-5.60); RDW 15.4 % (11.9-15.9); WHITE BLOOD COUNT 6.4 K/mm3 (4.0-10.0)
[2019-11-10] MEDS: INSULIN SLIDING SCALE (NOVOLOG) 1 VIAL SQ SCH ×2 (08:32→17:22)
[2019-11-10 08:44] LABS: ALBUMIN 1.7 g/dl (3.4-5.0); BILIRUBIN,TOTAL 0.3 mg/dL (0.2-1); BLOOD UREA NITROGEN 42.8 mg/dL (7-18); CALCIUM 8.3 mg/dL (8.5-10.1); CREATININE 1.3 mg/dL (0.55-1.3); POTASSIUM 4.7 mmol/L (3.5-5.1); TOT PROT 5.3 g/dl (6.4-8.2)
[2019-11-10] MEDS: AMINO ACIDS/PROTEIN HYDROLYS 30 ML LIQUID.PKT PO SCH ×2 (09:00→23:14)
--- NOTE | 2019-11-10 09:12 | PN ---
Progress Note (short form) - Note Progress Note: Attending Surgeon Seen in f/u; well known to me; c/o abdominal pain; this is chronic VSS AF abdo-soft; ostomy is functioning CT a/p- no obstruction; left hydro IMP: no evidence of an acute surgical abdomen; no obstruction PLAN: Reconsult prn. Chapo Quintero MD FACS
--- NOTE | 2019-11-10 10:36 | PN ---
Progress Note, Physician Chief Complaint: UTI Anemia Abdominal Pain History of Present Illness: Previous notes and events reviewed awake and alert NAD Hg 9.6 s/p 1U PRBC yesterday denies complaints of chest pain or SOB no leukocytosis afebrile - Current Medication List Current Medications: Active Medications Amino Acids (Prosource No Carb Liquid Pkt) 30 ml PO BID@0800,1730 [facility] Last Admin: 11/09/19 18:11 Dose: 30 ml Calcium Carbonate (Calcium Carbonate -) 650 mg PO DAILY [facility] Last Admin: 11/09/19 10:02 Dose: 650 mg Enoxaparin Sodium (Lovenox -) 30 mg SQ DAILY [facility] Last Admin: 11/09/19 10:02 Dose: 30 mg Cefazolin Sodium 500 mg/ (Dextrose) 50 mls @ 100 mls/hr IVPB BID [facility] Last Admin: 11/10/19 00:53 Dose: 100 mls/hr Dextrose/Sodium Chloride (D5-Ns -) 1,000 mls @ 75 mls/hr IV ASDIR [facility] Last Admin: 11/09/19 15:00 Dose: 75 mls/hr Insulin Aspart (Novolog Vial Sliding Scale -) 1 vial SQ BIDAC [facility]; Protocol Last Admin: 11/10/19 08:32 Dose: Not Given Metoclopramide HCl (Reglan -) 10 mg PO ACHS [facility] Last Admin: 11/10/19 07:29 Dose: 10 mg Nystatin (Nystop Powder -) 1 applic TP BID [facility] Last Admin: 11/10/19 00:53 Dose: 1 applic Pantoprazole Sodium (Protonix -) 40 mg PO DAILY [facility] Last Admin: 11/09/19 10:02 Dose: 40 mg Simethicone (Mylicon -) 80 mg PO TID [facility] Last Admin: 11/10/19 07:29 Dose: 80 mg - Objective Vital Signs: Vital Signs Temperature 98.0 F 11/10/19 00:45 Pulse Rate 69 11/10/19 00:45 Respiratory Rate 18 11/10/19 00:45 Blood Pressure 163/70 11/10/19 00:45 O2 Sat by Pulse Oximetry (%) 100 11/10/19 00:45 Constitutional: Yes: No Distress, Calm Eyes: Yes: Conjunctiva Clear HENT: Yes: Atraumatic Cardiovascular: Yes: Regular Rate and Rhythm Respiratory: Yes: Regular, Diminished Gastrointestinal: Yes: Normal Bowel Sounds, Soft, Other (colostomy) Genitourinary: Yes: Other (suprapubic catheter) Musculoskeletal: Yes: Muscle Weakness Extremities: Yes: WNL Edema: No Integumentary: Yes: Pressure Ulcer Wound/Incision: Yes: Dressing Dry and Intact Neurological: Yes: Alert, Pre-Existing Deficit Psychiatric: Yes: Alert, Oriented Labs: CBC, BMP 11/10/19 07:26 11/10/19 07:26 Microbiology 11/08/19 18:12 Urine - Urine - Catheterized Urine Culture - Final Contaminated: Please Repeat 11/08/19 17:00 Blood - Peripheral Venous Blood Culture - Preliminary NO GROWTH OBTAINED AFTER 24 HOURS, INCUBATION TO CONTINUE FOR 4 DAYS. 11/08/19 17:00 Blood - Peripheral Venous Blood Culture - Preliminary NO GROWTH OBTAINED AFTER 24 HOURS, INCUBATION TO CONTINUE FOR 4 DAYS. Problem List - Problems (1) Abdominal pain Assessment/Plan: -CTAP shows pancreatic calcifications suspicious for chronic calcific pancreatitis, cholelithiasis, moderately severe left sided hydronephrosis and hydroureter without obvious obstructin, s/p suprapubic cystostomy tube distal portion of the tbe could be obstructing the L UVJ, marked thickening of urinary bladder and cystitis cannot be excluded, s/p rectosigmoid colostomy with no evidence of of bowel obstruction -Surgery on board, no surgical internevtion needed at present -no leukocytosis -afebrile -Cefazolin -ID on board Code(s): R10.9 - UNSPECIFIED ABDOMINAL PAIN Qualifiers: Abdominal location: generalized Qualified Code(s): R10.84 - Generalized abdominal pain (2) Diabetes Assessment/Plan: -BGM ACHS -ISS -HgA1c 4.4% Code(s): E11.9 - TYPE 2 DIABETES MELLITUS WITHOUT COMPLICATIONS (3) Functional quadriplegia Assessment/Plan: -PT -Fall precaution Code(s): R53.2 - FUNCTIONAL QUADRIPLEGIA (4) HTN (hypertension) Assessment/Plan: -low Na diet -monitor BP Code(s): I10 - ESSENTIAL (PRIMARY) HYPERTENSION (5) Sacral decubitus ulcer, stage IV Assessment/Plan: -Plastics consult -turn q2h -offloading -CTAP shows large decubitis ulceration with prior coccygeal excision, acute/ chronic osteomyelitis cannot be excluded Code(s): L89.154 - PRESSURE ULCER OF SACRAL REGION, STAGE 4 (6) UTI (urinary tract infection) Assessment/Plan: -Urology consult -CTAP shows pancreatic calcifications suspicious for chronic calcific pancreatitis, cholelithiasis, moderately severe left sided hydronephrosis and hydroureter without obvious obstructin, s/p suprapubic cystostomy tube distal portion of the tbe could be obstructing the L UVJ, marked thickening of urinary bladder and cystitis cannot be excluded, s/p rectosigmoid colostomy with no evidence of of bowel obstruction -UA shows 3+ leuks, 3+ blood, 3+ protein -UC contaminated, re-order UC -BC neg -no leukocytosis -afebrile -Cefazolin Code(s): N39.0 - URINARY TRACT INFECTION, SITE NOT SPECIFIED Qualifiers: Hematuria presence: with hematuria (7) Anemia Assessment/Plan: -Hg 9.6 -s/p 1U PRBC transfusion -monitor Hg daily -Anemia profile shows low Iron 22, TIBC 175, Iron Sat 12 -Stool OB ordered -transfuse for Hg <8.0 Code(s): D64.9 - ANEMIA, UNSPECIFIED (8) Hydronephrosis Assessment/Plan: -Urology consult -CTAP shows pancreatic calcifications suspicious for chronic calcific pancreatitis, cholelithiasis, moderately severe left sided hydronephrosis and hydroureter without obvious obstructin, s/p suprapubic cystostomy tube distal portion of the tbe could be obstructing the L UVJ, marked thickening of urinary bladder and cystitis cannot be excluded, s/p rectosigmoid colostomy with no evidence of of bowel obstruction Code(s): N13.30 - UNSPECIFIED HYDRONEPHROSIS Assessment/Plan see problem list
--- NOTE | 2019-11-10 12:06 | PN ---
Progress Note (short form) - Note Progress Note: Renal follow up for Acute kidney injury Pt was seen by our service on his most recent admission Mr. Reardon is a 73 year old male with history of quadriplegia, neurogenic bladder with SPC, hypertension, DM, sigmoid volvolus s/p Hartmans with recent hospital admission for SBO requiring TPN presents with abdominal pain and found to have left sided hydronephrosis and MARTINEZ with Cr of 1.5. Pt seen and examined in the ER. He denies any abdominal pain presently. Denies any fever or chills. Making urine via SPC. No chest pain or shortness of breath. Reports not eating well for the last 4 days. Home Medications Medication Instructions Recorded Nystatin Powder [Nystop Powder -] 15 gm TP BID 08/31/19 Amino Acids/Protein Hydrolys 30 ml PO BID@0800,1730 packet 10/24/19 [Prosource No Carb Liquid Pkt] Heparin - 5,000 unit SQ TID vial 10/24/19 Metoclopramide HCl [Reglan -] 10 mg PO ACHS tablet 10/24/19 Pantoprazole Sodium [Protonix -] 40 mg PO DAILY tablet.ec 10/24/19 Simethicone [Mylicon -] 80 mg PO TID tab.chew 10/24/19 Acetaminophen [Tylenol .Regular 650 mg PO Q6H PRN tablet 10/25/19 Strength -] Benzocaine/Menthol [Cepacol Sore 1 each PO Q4H PRN 11/08/19 Throat Lozenge] Vital Signs Temperature 98.0 F 11/10/19 00:45 Pulse Rate 69 11/10/19 00:45 Respiratory Rate 18 11/10/19 00:45 Blood Pressure 163/70 11/10/19 00:45 O2 Sat by Pulse Oximetry (%) 100 11/10/19 00:45 Intake & Output 11/07/19 11/08/19 11/09/19 11/10/19 23:59 23:59 23:59 23:59 Intake Total 500 Output Total 500 Balance 0 Weight 43.545 kg NAD awake and alert neck supple RRR CTA soft, NT/ND no CVA tenderness SPC in place no LE edema CBC, BMP 11/10/19 07:26 11/10/19 07:26 Current Medications Amino Acids (Prosource No Carb Liquid Pkt) 30 ml PO BID@0800,1730 [facility] Last Admin: 11/09/19 18:11 Dose: 30 ml Calcium Carbonate (Calcium Carbonate -) 650 mg PO DAILY [facility] Last Admin: 11/09/19 10:02 Dose: 650 mg Enoxaparin Sodium (Lovenox -) 30 mg SQ DAILY [facility] Last Admin: 11/09/19 10:02 Dose: 30 mg Cefazolin Sodium 500 mg/ (Dextrose) 50 mls @ 100 mls/hr IVPB BID [facility] Last Admin: 11/10/19 00:53 Dose: 100 mls/hr Dextrose/Sodium Chloride (D5-Ns -) 1,000 mls @ 75 mls/hr IV ASDIR [facility] Last Admin: 11/09/19 15:00 Dose: 75 mls/hr Insulin Aspart (Novolog Vial Sliding Scale -) 1 vial SQ BIDAC [facility]; Protocol Last Admin: 11/10/19 08:32 Dose: Not Given Metoclopramide HCl (Reglan -) 10 mg PO ACHS [facility] Last Admin: 11/10/19 07:29 Dose: 10 mg Nystatin (Nystop Powder -) 1 applic TP BID [facility] Last Admin: 11/10/19 00:53 Dose: 1 applic Pantoprazole Sodium (Protonix -) 40 mg PO DAILY [facility] Last Admin: 11/09/19 10:02 Dose: 40 mg Simethicone (Mylicon -) 80 mg PO TID [facility] Last Admin: 11/10/19 07:29 Dose: 80 mg 73 year old male with history of quadriplegia, neurogenic bladder with SPC, hypertension, DM, sigmoid volvolus s/p Hartmans with recent hospital admission for SBO requiring TPN presents with abdominal pain and found to have left sided hydronephrosis and MARTINEZ with Cr of 1.5. 1. Acute kidney injury 2. Left sided hydronephrosis with possible SPC obstructing UVJ 3. Anemia with iron deficiency 4. Hx of recent SBO 5. Possible infection/pyuria Renal function slightly improving with IVF. Etiology of injury likely multi- factorial from volume depletion + unilateral obstruction continue isotonic saline for now Urology consult pending on Empiric antibiotics as per ID consider iron infusions for anemia management Trend renal function daily Thank you Arias Eubanks DO
[2019-11-10] MEDS: CALCIUM CARBONATE 650 MG TABLET PO SCH (12:11)
[2019-11-10] MEDS: ENOXAPARIN NA (PORCINE) 30 MG/0.3 ML DISP.SYRIN SQ SCH (12:11)
[2019-11-10] MEDS: PANTOPRAZOLE 40 MG TABLET PO SCH (12:12)
[2019-11-10] MEDS: DEXTROSE 5%-NORMAL SALINE 1,000 ML IV SCH (12:12)
[2019-11-10] MEDS ORDERED: CEFAZOLIN 1 GM/D5W 1 GM/50 ML BAG ONE (12:13)
[2019-11-11] MEDS: METOCLOPRAMIDE HCL 10 MG TABLET (FP) PO SCH ×4 (06:24→22:31)
[2019-11-11] MEDS: SIMETHICONE 80 MG TAB.CHEW (FP) PO SCH ×4 (06:24→22:31)
[2019-11-11] MEDS: DEXTROSE 5%-NORMAL SALINE 1,000 ML IV SCH ×3 (06:25→20:44)
[2019-11-11] MEDS: INSULIN SLIDING SCALE (NOVOLOG) 1 VIAL SQ SCH ×2 (06:31→17:18)
[2019-11-11] MEDS ORDERED: PT OWN MED DRAWER 7, Y5N ONE ×4 (09:23→20:57)
--- NOTE | 2019-11-11 09:39 | PN ---
Progress Note, Physician Chief Complaint: UTI Anemia Abdominal Pain History of Present Illness: Previous notes and events reviewed awake and alert NAD Hg 9.6, pt refused blood draw this morning, explained importance of having labs drawn to monitor Hg due to anemia denies complaints of chest pain or SOB no leukocytosis afebrile - Current Medication List Current Medications: Active Medications Amino Acids (Prosource No Carb Liquid Pkt) 30 ml PO BID@0800,1730 [facility] Last Admin: 11/10/19 23:14 Dose: Not Given Calcium Carbonate (Calcium Carbonate -) 650 mg PO DAILY [facility] Last Admin: 11/10/19 12:11 Dose: 650 mg Enoxaparin Sodium (Lovenox -) 30 mg SQ DAILY [facility] Last Admin: 11/10/19 12:11 Dose: 30 mg Cefazolin Sodium 500 mg/ (Dextrose) 50 mls @ 100 mls/hr IVPB BID [facility] Last Admin: 11/10/19 23:15 Dose: 100 mls/hr Dextrose/Sodium Chloride (D5-Ns -) 1,000 mls @ 75 mls/hr IV ASDIR [facility] Last Admin: 11/11/19 06:25 Dose: 75 mls/hr Insulin Aspart (Novolog Vial Sliding Scale -) 1 vial SQ BIDAC [facility]; Protocol Last Admin: 11/11/19 06:31 Dose: Not Given Metoclopramide HCl (Reglan -) 10 mg PO ACHS [facility] Last Admin: 11/11/19 06:24 Dose: 10 mg Nystatin (Nystop Powder -) 1 applic TP BID [facility] Last Admin: 11/10/19 23:15 Dose: 1 applic Pantoprazole Sodium (Protonix -) 40 mg PO DAILY [facility] Last Admin: 11/10/19 12:12 Dose: 40 mg Simethicone (Mylicon -) 80 mg PO TID [facility] Last Admin: 11/11/19 06:24 Dose: 80 mg - Objective Vital Signs: Vital Signs Temperature 98.0 F 11/11/19 06:00 Pulse Rate 78 11/11/19 06:00 Respiratory Rate 20 11/11/19 06:00 Blood Pressure 120/58 L 11/11/19 06:00 O2 Sat by Pulse Oximetry (%) 98 11/10/19 12:00 Constitutional: Yes: No Distress, Calm Eyes: Yes: Conjunctiva Clear HENT: Yes: Atraumatic Cardiovascular: Yes: Regular Rate and Rhythm Respiratory: Yes: Regular, Diminished Gastrointestinal: Yes: Normal Bowel Sounds, Soft, Other (colostomy) Musculoskeletal: Yes: Muscle Weakness Extremities: Yes: WNL Edema: No Wound/Incision: Yes: Dressing Dry and Intact Neurological: Yes: Alert, Oriented, Pre-Existing Deficit Psychiatric: Yes: Alert, Oriented Labs: CBC, BMP 11/10/19 07:26 11/10/19 07:26 Microbiology 11/08/19 17:00 Blood - Peripheral Venous Blood Culture - Preliminary NO GROWTH OBTAINED AFTER 48 HOURS, INCUBATION TO CONTINUE FOR 3 DAYS. 11/08/19 17:00 Blood - Peripheral Venous Blood Culture - Preliminary NO GROWTH OBTAINED AFTER 48 HOURS, INCUBATION TO CONTINUE FOR 3 DAYS. 11/08/19 18:12 Urine - Urine - Catheterized Urine Culture - Final Contaminated: Please Repeat Problem List - Problems (1) Abdominal pain Assessment/Plan: -CTAP shows pancreatic calcifications suspicious for chronic calcific pancreatitis, cholelithiasis, moderately severe left sided hydronephrosis and hydroureter without obvious obstructin, s/p suprapubic cystostomy tube distal portion of the tbe could be obstructing the L UVJ, marked thickening of urinary bladder and cystitis cannot be excluded, s/p rectosigmoid colostomy with no evidence of of bowel obstruction -Surgery on board, no surgical internevtion needed at present -no leukocytosis -afebrile -Cefazolin -ID on board Code(s): R10.9 - UNSPECIFIED ABDOMINAL PAIN Qualifiers: Abdominal location: generalized Qualified Code(s): R10.84 - Generalized abdominal pain (2) Diabetes Assessment/Plan: -BGM ACHS -ISS -HgA1c 4.4% -diabetic diet Code(s): E11.9 - TYPE 2 DIABETES MELLITUS WITHOUT COMPLICATIONS (3) Functional quadriplegia Assessment/Plan: -PT -Fall precaution Code(s): R53.2 - FUNCTIONAL QUADRIPLEGIA (4) HTN (hypertension) Assessment/Plan: -low Na diet -monitor BP Code(s): I10 - ESSENTIAL (PRIMARY) HYPERTENSION (5) Sacral decubitus ulcer, stage IV Assessment/Plan: -Plastics consult -turn q2h -offloading -CTAP shows large decubitis ulceration with prior coccygeal excision, acute/ chronic osteomyelitis cannot be excluded Code(s): L89.154 - PRESSURE ULCER OF SACRAL REGION, STAGE 4 (6) UTI (urinary tract infection) Assessment/Plan: -Urology consult -CTAP shows pancreatic calcifications suspicious for chronic calcific pancreatitis, cholelithiasis, moderately severe left sided hydronephrosis and hydroureter without obvious obstructin, s/p suprapubic cystostomy tube distal portion of the tbe could be obstructing the L UVJ, marked thickening of urinary bladder and cystitis cannot be excluded, s/p rectosigmoid colostomy with no evidence of of bowel obstruction -UA shows 3+ leuks, 3+ blood, 3+ protein -UC contaminated, re-order UC -BC neg -no leukocytosis -afebrile -Cefazolin Code(s): N39.0 - URINARY TRACT INFECTION, SITE NOT SPECIFIED Qualifiers: Hematuria presence: with hematuria (7) Anemia Assessment/Plan: -Hg 9.6 -s/p 1U PRBC transfusion this admission -monitor Hg daily -Anemia profile shows low Iron 22, TIBC 175, Iron Sat 12 -Stool OB ordered -transfuse for Hg <8.0 -start on Iron Polysaccharide Code(s): D64.9 - ANEMIA, UNSPECIFIED (8) Hydronephrosis Assessment/Plan: -Urology consult -CTAP shows pancreatic calcifications suspicious for chronic calcific pancreatitis, cholelithiasis, moderately severe left sided hydronephrosis and hydroureter without obvious obstructin, s/p suprapubic cystostomy tube distal portion of the tbe could be obstructing the L UVJ, marked thickening of urinary bladder and cystitis cannot be excluded, s/p rectosigmoid colostomy with no evidence of of bowel obstruction Code(s): N13.30 - UNSPECIFIED HYDRONEPHROSIS Assessment/Plan see problem list dvt ppx
[2019-11-11] MEDS: PANTOPRAZOLE 40 MG TABLET PO SCH (10:18)
[2019-11-11] MEDS: CALCIUM CARBONATE 650 MG TABLET PO SCH (10:18)
[2019-11-11] MEDS: AMINO ACIDS/PROTEIN HYDROLYS 30 ML LIQUID.PKT PO SCH ×2 (10:18→17:16)
[2019-11-11] MEDS: ENOXAPARIN NA (PORCINE) 30 MG/0.3 ML DISP.SYRIN SQ SCH (10:19)
[2019-11-11] MEDS: CEFAZOLIN 500 MG in DEXTROSE 5%-WATER - 50 ML IVPB SCH ×2 (10:19→22:31)
[2019-11-11] MEDS: IRON POLYSACCHARIDES 150 MG CAPSULE PO SCH (10:26)
[2019-11-11 11:09] LABS: HEMATOCRIT 30.5 % (35.4-49); HEMOGLOBIN 9.8 GM/dL (11.7-16.9); MCH 27.2 pg (25.7-33.7); MCHC 32.2 g/dl (32.0-35.9); MEAN CELL VOLUME 84.6 fl (80-96); MEAN PLT VOLUME 6.4 fl (7.5-11.1); PLATELET COUNT 301 K/MM3 (134-434); RBC 3.61 M/mm3 (4.00-5.60); RDW 15.5 % (11.9-15.9); WHITE BLOOD COUNT 6.1 K/mm3 (4.0-10.0)
[2019-11-11 11:40] LABS: ALBUMIN 1.7 g/dl (3.4-5.0); ALK PHOS 73 U/L (45-117); ANION GAP 7 MMOL/L (8-16); BILIRUBIN,TOTAL 0.2 mg/dL (0.2-1); BLOOD UREA NITROGEN 41.6 mg/dL (7-18); CALCIUM 8.3 mg/dL (8.5-10.1); CHLORIDE 114 mmol/L (98-107); CO2 22 mmol/L (21-32); CREATININE 1.3 mg/dL (0.55-1.3); GLUCOSE,RANDOM 140 mg/dL (74-106); POTASSIUM 4.5 mmol/L (3.5-5.1); SGOT/AST 7 U/L (15-37); SGPT/ALT < 6 U/L (13-61); SODIUM 142 mmol/L (136-145); TOT PROT 5.4 g/dl (6.4-8.2)
--- NOTE | 2019-11-11 15:20 | PN ---
Progress Note (short form) - Note Progress Note: Renal follow up for Acute kidney injury Seen and examined at the bedside awake and alert offers no acute complaints denies any flank pain no N/V Vital Signs Temperature 98.0 F 11/11/19 08:45 Pulse Rate 84 11/11/19 08:45 Respiratory Rate 18 11/11/19 08:45 Blood Pressure 126/55 L 11/11/19 08:45 O2 Sat by Pulse Oximetry (%) 98 11/10/19 12:00 Intake & Output 11/08/19 11/09/19 11/10/19 11/11/19 23:59 23:59 23:59 23:59 Intake Total 500 1200 0 Output Total 500 800 400 Balance 0 400 -400 Weight 43.545 kg 51.426 kg NAD RRR CTA soft, NT/ND no CVA tenderness SPC in place no LE edema CBC, BMP 11/11/19 09:50 11/11/19 09:50 Current Medications Amino Acids (Prosource No Carb Liquid Pkt) 30 ml PO BID@0800,1730 [facility] Last Admin: 11/11/19 10:18 Dose: 30 ml Calcium Carbonate (Calcium Carbonate -) 650 mg PO DAILY [facility] Last Admin: 11/11/19 10:18 Dose: 650 mg Enoxaparin Sodium (Lovenox -) 30 mg SQ DAILY [facility] Last Admin: 11/11/19 10:19 Dose: 30 mg Cefazolin Sodium 500 mg/ (Dextrose) 50 mls @ 100 mls/hr IVPB BID [facility] Last Admin: 11/11/19 10:19 Dose: 100 mls/hr Dextrose/Sodium Chloride (D5-Ns -) 1,000 mls @ 75 mls/hr IV ASDIR [facility] Last Admin: 11/11/19 06:25 Dose: 75 mls/hr Insulin Aspart (Novolog Vial Sliding Scale -) 1 vial SQ BIDAC [facility]; Protocol Last Admin: 11/11/19 06:31 Dose: Not Given Metoclopramide HCl (Reglan -) 10 mg PO ACHS [facility] Last Admin: 11/11/19 11:36 Dose: 10 mg Nystatin (Nystop Powder -) 1 applic TP BID [facility] Last Admin: 11/10/19 23:15 Dose: 1 applic Pantoprazole Sodium (Protonix -) 40 mg PO DAILY [facility] Last Admin: 11/11/19 10:18 Dose: 40 mg Polysaccharide Iron Complex (Niferex-150 -) 150 mg PO DAILY [facility] Last Admin: 11/11/19 10:26 Dose: 150 mg Simethicone (Mylicon -) 80 mg PO TID [facility] Last Admin: 11/11/19 12:11 Dose: 80 mg 73 year old male with history of quadriplegia, neurogenic bladder with SPC, hypertension, DM, sigmoid volvolus s/p Hartmans with recent hospital admission for SBO requiring TPN presents with abdominal pain and found to have left sided hydronephrosis and MARTINEZ with Cr of 1.5. 1. Acute kidney injury 2. Left sided hydronephrosis with possible SPC obstructing UVJ 3. Anemia with iron deficiency 4. Hx of recent SBO 5. Possible infection/pyuria Etiology of kidney injury likely multi-factorial from volume depletion + unilateral obstruction can continue IVF for now Urology consult pending on Empiric antibiotics as per ID, cultures w/o growth thus far. consider iron infusions for anemia management Trend renal function daily Thank you Arias Eubanks DO
--- NOTE | 2019-11-11 15:59 | CONSULT ---
Consult Consult Specialty:: UROLOGY Reason for Consultation:: Left hydronephrosis - History of Present Illness Chief Complaint: 74 Y/O Male patient with history of bladder tumor and neurogenic bladder on SPC. O/E SPC in place, Left colostomy. CT-Scan Left hydronephrosis with the tip of the SPC on UVJ region- obstruction? 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: Other (Quadriplegia) Cardio/Vascular: Yes: HTN Renal/: Yes: Hematuria, Neurogenic Bladder Infectious Disease: Yes: Other (ESBL/Pseudomonas- Urine) Musculoskeletal: Yes: Other (Quadriplegia) Endocrine: Yes: Diabetes Mellitus - Alcohol/Substance Use Hx Alcohol Use: No History of Substance Use: reports: None - Smoking History Smoking history: Never smoked Have you smoked in the past 12 months: No - Social History Usual Living Arrangement: [facility] ADL: Support Services History of Recent Travel: No Home Medications - Allergies Allergies/Adverse Reactions: Allergies Allergy/AdvReac Type Severity Reaction Status Date / Time ciprofloxacin Allergy Verified 09/22/19 20:52 piperacillin [From Zosyn] Allergy Verified 09/22/19 20:52 tazobactam [From Zosyn] Allergy Verified 09/22/19 20:52 Penicillins AdvReac Verified 09/22/19 20:52 - Home Medications Home Medications: Ambulatory Orders Nystatin Powder [Nystop Powder -] 15 gm TP BID 08/31/19 Amino Acids/Protein Hydrolys [Prosource No Carb Liquid Pkt] 30 ml PO BID@0800, 1730 packet 10/24/19 Heparin - 5,000 unit SQ TID vial 10/24/19 Metoclopramide HCl [Reglan -] 10 mg PO ACHS tablet 10/24/19 Pantoprazole Sodium [Protonix -] 40 mg PO DAILY tablet.ec 10/24/19 Simethicone [Mylicon -] 80 mg PO TID tab.chew 10/24/19 Acetaminophen [Tylenol .Regular Strength -] 650 mg PO Q6H PRN tablet 10/25/19 Benzocaine/Menthol [Cepacol Sore Throat Lozenge] 1 each PO Q4H PRN 11/08/19 Physical Exam Vital Signs: Vital Signs Temperature 98.2 F 11/11/19 14:40 Pulse Rate 74 11/11/19 14:40 Respiratory Rate 18 11/11/19 14:40 Blood Pressure 128/60 11/11/19 14:40 O2 Sat by Pulse Oximetry (%) 98 11/11/19 08:45 Labs: CBC, BMP 11/11/19 09:50 11/11/19 09:50 Assessment/Plan Left hydronephrosis Bladder tumor Neurogenic bladder on SPC Plan: after change SPC. will repeat renal U/S in thursday if Hydronephrosis still there then patient will have Cystoscopy Left RGS and JJ stent insertion.
[2019-11-11] MEDS: NYSTATIN POWDER 100,000 UNITS/GM - 15 GM TOPICAL POWDER TP SCH ×2 (17:17→22:30)
[2019-11-11] MEDS ORDERED: INSULIN (NOVOLOG) ASPART 100 UNITS/ML 10ML VIAL ONE (18:59)
[2019-11-12] MEDS: SIMETHICONE 80 MG TAB.CHEW (FP) PO SCH ×3 (06:48→22:06)
[2019-11-12] MEDS: METOCLOPRAMIDE HCL 10 MG TABLET (FP) PO SCH ×4 (06:48→22:06)
[2019-11-12] MEDS: INSULIN SLIDING SCALE (NOVOLOG) 1 VIAL SQ SCH ×2 (06:48→17:36)
--- NOTE | 2019-11-12 08:27 | PN ---
Progress Note, Physician Chief Complaint: UTI Anemia Abdominal Pain History of Present Illness: Previous notes and events reviewed awake and alert NAD Hg 9.1 denies complaints of chest pain or SOB no leukocytosis afebrile UC prelim positive SPC changed yesterday by urology - Current Medication List Current Medications: Active Medications Amino Acids (Prosource No Carb Liquid Pkt) 30 ml PO BID@0800,1730 [facility] Last Admin: 11/11/19 17:16 Dose: 30 ml Calcium Carbonate (Calcium Carbonate -) 650 mg PO DAILY [facility] Last Admin: 11/11/19 10:18 Dose: 650 mg Enoxaparin Sodium (Lovenox -) 30 mg SQ DAILY [facility] Last Admin: 11/11/19 10:19 Dose: 30 mg Cefazolin Sodium 500 mg/ (Dextrose) 50 mls @ 100 mls/hr IVPB BID [facility] Last Admin: 11/11/19 22:31 Dose: 100 mls/hr Dextrose/Sodium Chloride (D5-Ns -) 1,000 mls @ 75 mls/hr IV ASDIR [facility] Last Admin: 11/11/19 20:44 Dose: 75 mls/hr Insulin Aspart (Novolog Vial Sliding Scale -) 1 vial SQ BIDAC [facility]; Protocol Last Admin: 11/12/19 06:48 Dose: Not Given Metoclopramide HCl (Reglan -) 10 mg PO ACHS [facility] Last Admin: 11/12/19 06:48 Dose: 10 mg Nystatin (Nystop Powder -) 1 applic TP BID [facility] Last Admin: 11/11/19 22:30 Dose: 1 applic Pantoprazole Sodium (Protonix -) 40 mg PO DAILY [facility] Last Admin: 11/11/19 10:18 Dose: 40 mg Polysaccharide Iron Complex (Niferex-150 -) 150 mg PO DAILY [facility] Last Admin: 11/11/19 10:26 Dose: 150 mg Simethicone (Mylicon -) 80 mg PO TID [facility] Last Admin: 11/12/19 06:48 Dose: 80 mg - Objective Vital Signs: Vital Signs Temperature 97.9 F 11/12/19 06:45 Pulse Rate 74 11/12/19 06:45 Respiratory Rate 18 11/12/19 06:45 Blood Pressure 148/76 11/12/19 06:45 O2 Sat by Pulse Oximetry (%) 98 11/11/19 08:45 Constitutional: Yes: No Distress, Calm Eyes: Yes: Conjunctiva Clear HENT: Yes: Atraumatic Cardiovascular: Yes: Regular Rate and Rhythm Respiratory: Yes: Regular, Diminished, On Nasal O2 Gastrointestinal: Yes: Normal Bowel Sounds, Soft, Other (colostomy) Genitourinary: Yes: Other (Suprapubic catheter) Musculoskeletal: Yes: Muscle Weakness Extremities: Yes: WNL Edema: No Neurological: Yes: Alert, Oriented, Pre-Existing Deficit Psychiatric: Yes: Alert, Oriented Labs: CBC, BMP 11/11/19 09:50 11/11/19 09:50 Microbiology 11/11/19 10:50 Urine - Urine Suprapubic Urine Culture - Preliminary Proteus Species 11/08/19 17:00 Blood - Peripheral Venous Blood Culture - Preliminary NO GROWTH OBTAINED AFTER 72 HOURS, INCUBATION TO CONTINUE FOR 2 DAYS. 11/08/19 17:00 Blood - Peripheral Venous Blood Culture - Preliminary NO GROWTH OBTAINED AFTER 72 HOURS, INCUBATION TO CONTINUE FOR 2 DAYS. 11/08/19 18:12 Urine - Urine - Catheterized Urine Culture - Final Contaminated: Please Repeat Problem List - Problems (1) Abdominal pain Assessment/Plan: -CTAP shows pancreatic calcifications suspicious for chronic calcific pancreatitis, cholelithiasis, moderately severe left sided hydronephrosis and hydroureter without obvious obstructin, s/p suprapubic cystostomy tube distal portion of the tbe could be obstructing the L UVJ, marked thickening of urinary bladder and cystitis cannot be excluded, s/p rectosigmoid colostomy with no evidence of of bowel obstruction -Surgery on board, no surgical internevtion needed at present -no leukocytosis -afebrile -Cefazolin -ID on board Code(s): R10.9 - UNSPECIFIED ABDOMINAL PAIN Qualifiers: Abdominal location: generalized Qualified Code(s): R10.84 - Generalized abdominal pain (2) Diabetes Assessment/Plan: -BGM ACHS -ISS -HgA1c 4.4% -diabetic diet Code(s): E11.9 - TYPE 2 DIABETES MELLITUS WITHOUT COMPLICATIONS (3) Functional quadriplegia Assessment/Plan: -PT -Fall precaution Code(s): R53.2 - FUNCTIONAL QUADRIPLEGIA (4) HTN (hypertension) Assessment/Plan: -low Na diet -monitor BP Code(s): I10 - ESSENTIAL (PRIMARY) HYPERTENSION (5) Sacral decubitus ulcer, stage IV Assessment/Plan: -Plastics consult -turn q2h -offloading -CTAP shows large decubitis ulceration with prior coccygeal excision, acute/ chronic osteomyelitis cannot be excluded Code(s): L89.154 - PRESSURE ULCER OF SACRAL REGION, STAGE 4 (6) UTI (urinary tract infection) Assessment/Plan: -Urology consult -CTAP shows pancreatic calcifications suspicious for chronic calcific pancreatitis, cholelithiasis, moderately severe left sided hydronephrosis and hydroureter without obvious obstructin, s/p suprapubic cystostomy tube distal portion of the tbe could be obstructing the L UVJ, marked thickening of urinary bladder and cystitis cannot be excluded, s/p rectosigmoid colostomy with no evidence of of bowel obstruction -UA shows 3+ leuks, 3+ blood, 3+ protein -repeat UC prelim positive -BC neg -no leukocytosis -afebrile -Cefazolin Code(s): N39.0 - URINARY TRACT INFECTION, SITE NOT SPECIFIED Qualifiers: Hematuria presence: with hematuria (7) Anemia Assessment/Plan: -Hg 9.1 -s/p 1U PRBC transfusion this admission -monitor Hg daily -Anemia profile shows low Iron 22, TIBC 175, Iron Sat 12 -Stool OB ordered -transfuse for Hg <8.0 -Iron Polysaccharide Code(s): D64.9 - ANEMIA, UNSPECIFIED (8) Hydronephrosis Assessment/Plan: -Urology consult -CTAP shows pancreatic calcifications suspicious for chronic calcific pancreatitis, cholelithiasis, moderately severe left sided hydronephrosis and hydroureter without obvious obstructin, s/p suprapubic cystostomy tube distal portion of the tbe could be obstructing the L UVJ, marked thickening of urinary bladder and cystitis cannot be excluded, s/p rectosigmoid colostomy with no evidence of of bowel obstruction -Suprapubic catheter changed by urology -repeat Renal US ordered if still showing Hydronephrosis as per urology recommendation will need cystoscopy Code(s): N13.30 - UNSPECIFIED HYDRONEPHROSIS Assessment/Plan see problem list dvt ppx
[2019-11-12] MEDS ORDERED: PT OWN MED DRAWER 7, Y5N ONE ×2 (08:41→20:47)
[2019-11-12 08:43] LABS: HEMATOCRIT 28.5 % (35.4-49); HEMOGLOBIN 9.1 GM/dL (11.7-16.9); MCH 27.1 pg (25.7-33.7); MCHC 31.7 g/dl (32.0-35.9); MEAN CELL VOLUME 85.4 fl (80-96); MEAN PLT VOLUME 6.4 fl (7.5-11.1); PLATELET COUNT 248 K/MM3 (134-434); RBC 3.34 M/mm3 (4.00-5.60); RDW 15.5 % (11.9-15.9); WHITE BLOOD COUNT 5.5 K/mm3 (4.0-10.0)
[2019-11-12] MEDS: AMINO ACIDS/PROTEIN HYDROLYS 30 ML LIQUID.PKT PO SCH ×2 (08:43→17:33)
--- NOTE | 2019-11-12 09:02 | PN ---
Progress Note (short form) - Note Progress Note: Renal follow up for Acute kidney injury Seen and examined at the bedside awake and alert has mild abd pain no N/V no flank pain needs help to eat Vital Signs Temperature 97.9 F 11/12/19 06:45 Pulse Rate 74 11/12/19 06:45 Respiratory Rate 18 11/12/19 06:45 Blood Pressure 148/76 11/12/19 06:45 O2 Sat by Pulse Oximetry (%) 98 11/11/19 08:45 Intake & Output 11/09/19 11/10/19 11/11/19 11/12/19 23:59 23:59 23:59 23:59 Intake Total 1200 1380 600 Output Total 800 1040 900 Balance 400 340 -300 Weight 51.256 kg NAD RRR CTA soft, NT/ND no CVA tenderness SPC in place no LE edema CBC, BMP 11/12/19 08:15 Current Medications Amino Acids (Prosource No Carb Liquid Pkt) 30 ml PO BID@0800,1730 [facility] Last Admin: 11/12/19 08:43 Dose: 30 ml Calcium Carbonate (Calcium Carbonate -) 650 mg PO DAILY [facility] Last Admin: 11/11/19 10:18 Dose: 650 mg Enoxaparin Sodium (Lovenox -) 30 mg SQ DAILY [facility] Last Admin: 11/11/19 10:19 Dose: 30 mg Cefazolin Sodium 500 mg/ (Dextrose) 50 mls @ 100 mls/hr IVPB BID [facility] Last Admin: 11/11/19 22:31 Dose: 100 mls/hr Dextrose/Sodium Chloride (D5-Ns -) 1,000 mls @ 75 mls/hr IV ASDIR [facility] Last Admin: 11/11/19 20:44 Dose: 75 mls/hr Insulin Aspart (Novolog Vial Sliding Scale -) 1 vial SQ BIDAC [facility]; Protocol Last Admin: 11/12/19 06:48 Dose: Not Given Metoclopramide HCl (Reglan -) 10 mg PO ACHS [facility] Last Admin: 11/12/19 06:48 Dose: 10 mg Nystatin (Nystop Powder -) 1 applic TP BID [facility] Last Admin: 11/11/19 22:30 Dose: 1 applic Pantoprazole Sodium (Protonix -) 40 mg PO DAILY [facility] Last Admin: 11/11/19 10:18 Dose: 40 mg Polysaccharide Iron Complex (Niferex-150 -) 150 mg PO DAILY [facility] Last Admin: 11/11/19 10:26 Dose: 150 mg Simethicone (Mylicon -) 80 mg PO TID [facility] Last Admin: 11/12/19 06:48 Dose: 80 mg 73 year old male with history of quadriplegia, neurogenic bladder with SPC, hypertension, DM, sigmoid volvolus s/p Hartmans with recent hospital admission for SBO requiring TPN presents with abdominal pain and found to have left sided hydronephrosis and MARTINEZ with Cr of 1.5. 1. Acute kidney injury 2. Left sided hydronephrosis with possible SPC obstructing UVJ 3. Anemia with iron deficiency 4. Hx of recent SBO 5. Possible infection/pyuria Etiology of kidney injury likely multi-factorial from volume depletion + unilateral obstruction Renal function improving thus far this admission. SPC catheter changed by urology yesterday. Making urine. BMP from today is pending Repeat US on Thursday as per urology on Empiric antibiotics as per ID, Urine culture grew proteous consider iron infusions for anemia management Trend renal function daily Thank you Arias Eubanks DO
[2019-11-12 09:11] LABS: ALBUMIN 1.4 g/dl (3.4-5.0); ALK PHOS 61 U/L (45-117); ANION GAP 7 MMOL/L (8-16); BILIRUBIN,TOTAL 0.2 mg/dL (0.2-1); BLOOD UREA NITROGEN 35.4 mg/dL (7-18); CALCIUM 7.3 mg/dL (8.5-10.1); CHLORIDE 116 mmol/L (98-107); CO2 19 mmol/L (21-32); CREATININE 1.2 mg/dL (0.55-1.3); POTASSIUM 3.9 mmol/L (3.5-5.1); SGOT/AST 8 U/L (15-37); SGPT/ALT < 6 U/L (13-61); SODIUM 142 mmol/L (136-145); TOT PROT 4.6 g/dl (6.4-8.2)
[2019-11-12 09:38] LABS: GLUCOSE,RANDOM 416 mg/dL (74-106)
[2019-11-12] MEDS: ENOXAPARIN NA (PORCINE) 30 MG/0.3 ML DISP.SYRIN SQ SCH (09:55)
[2019-11-12] MEDS: PANTOPRAZOLE 40 MG TABLET PO SCH (09:55)
[2019-11-12] MEDS: CALCIUM CARBONATE 650 MG TABLET PO SCH (09:55)
[2019-11-12] MEDS: IRON POLYSACCHARIDES 150 MG CAPSULE PO SCH (09:55)
[2019-11-12] MEDS: CEFAZOLIN 500 MG in DEXTROSE 5%-WATER - 50 ML IVPB SCH ×2 (09:57→22:06)
[2019-11-12] MEDS: NYSTATIN POWDER 100,000 UNITS/GM - 15 GM TOPICAL POWDER TP SCH ×2 (09:57→22:17)
[2019-11-12] MEDS: DEXTROSE 5%-NORMAL SALINE 1,000 ML IV SCH ×2 (10:11→11:45)
[2019-11-12] MEDS ORDERED: ACETAMINOPHEN 1000 MG/100 ML VIAL (NON FORMULARY) IVPB ONE (20:04)
[2019-11-13] MEDS ORDERED: PT OWN MED DRAWER 7, Y5N ONE ×5 (06:01→21:32)
[2019-11-13] MEDS: SIMETHICONE 80 MG TAB.CHEW (FP) PO SCH ×3 (06:29→22:14)
[2019-11-13] MEDS: METOCLOPRAMIDE HCL 10 MG TABLET (FP) PO SCH ×4 (06:29→22:13)
[2019-11-13] MEDS: INSULIN SLIDING SCALE (NOVOLOG) 1 VIAL SQ SCH ×2 (06:29→17:10)
[2019-11-13 08:31] LABS: HEMATOCRIT 29.1 % (35.4-49); HEMOGLOBIN 9.2 GM/dL (11.7-16.9); MCH 27.5 pg (25.7-33.7); MCHC 31.7 g/dl (32.0-35.9); MEAN CELL VOLUME 86.8 fl (80-96); MEAN PLT VOLUME 6.4 fl (7.5-11.1); PLATELET COUNT 256 K/MM3 (134-434); RBC 3.35 M/mm3 (4.00-5.60); RDW 15.9 % (11.9-15.9)
[2019-11-13 09:00] LABS: ALBUMIN 1.4 g/dl (3.4-5.0); ALK PHOS 61 U/L (45-117); ANION GAP 7 MMOL/L (8-16); BILIRUBIN,TOTAL < 0.1 mg/dL (0.2-1); BLOOD UREA NITROGEN 36.2 mg/dL (7-18); CALCIUM 7.4 mg/dL (8.5-10.1); CHLORIDE 117 mmol/L (98-107); CO2 20 mmol/L (21-32); CREATININE 1.2 mg/dL (0.55-1.3); GLUCOSE,RANDOM 353 mg/dL (74-106); POTASSIUM 4.5 mmol/L (3.5-5.1); SGOT/AST 10 U/L (15-37); SGPT/ALT < 6 U/L (13-61); SODIUM 144 mmol/L (136-145); TOT PROT 4.7 g/dl (6.4-8.2)
--- NOTE | 2019-11-13 09:01 | CONSULT ---
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) Cardio/Vascular: Yes: HTN Renal/: Yes: Hematuria, Neurogenic Bladder Infectious Disease: Yes: Other (ESBL/Pseudomonas- Urine) Musculoskeletal: Yes: Other (Quadriplegia) Endocrine: Yes: Diabetes Mellitus - Alcohol/Substance Use Hx Alcohol Use: No History of Substance Use: reports: None - Smoking History Smoking history: Never smoked Have you smoked in the past 12 months: No - Social History Usual Living Arrangement: Fdc ADL: Support Services History of Recent Travel: No Home Medications - Allergies Allergies/Adverse Reactions: Allergies Allergy/AdvReac Type Severity Reaction Status Date / Time ciprofloxacin Allergy Verified 09/22/19 20:52 piperacillin [From Zosyn] Allergy Verified 09/22/19 20:52 tazobactam [From Zosyn] Allergy Verified 09/22/19 20:52 Penicillins AdvReac Verified 09/22/19 20:52 - Home Medications Home Medications: Ambulatory Orders Nystatin Powder [Nystop Powder -] 15 gm TP BID 08/31/19 Amino Acids/Protein Hydrolys [Prosource No Carb Liquid Pkt] 30 ml PO BID@0800, 1730 packet 10/24/19 Heparin - 5,000 unit SQ TID vial 10/24/19 Metoclopramide HCl [Reglan -] 10 mg PO ACHS tablet 10/24/19 Pantoprazole Sodium [Protonix -] 40 mg PO DAILY tablet.ec 10/24/19 Simethicone [Mylicon -] 80 mg PO TID tab.chew 10/24/19 Acetaminophen [Tylenol .Regular Strength -] 650 mg PO Q6H PRN tablet 10/25/19 Benzocaine/Menthol [Cepacol Sore Throat Lozenge] 1 each PO Q4H PRN 11/08/19 Physical Exam Vital Signs: Vital Signs Temperature 98.1 F 11/13/19 07:37 Pulse Rate 80 11/13/19 07:37 Respiratory Rate 20 11/13/19 07:37 Blood Pressure 124/78 11/13/19 07:37 O2 Sat by Pulse Oximetry (%) 97 11/12/19 21:00 Labs: CBC, BMP 11/13/19 07:30 11/13/19 07:30 Assessment/Plan 74 year old male readmitted with abdominal pain. History of Grade IV sacral decubitus . Problem : Quadriplegia, totally dependent . Grade IV decubitus sacral area , extends to Bone/fascia with Undermining Patient has low Protein/Albumin., White Count is WNL Recommendation : 1. Wound care /Relief of pressure 2. Soft Low pressure mattress gradeIII/IV pressure sures 3. Improve Nutritional Status/Final Armature Tester Consult. 4. VAC Therapy 125mmhg/continuos. 5. Flap Closure Total Protein/Albumin is improved
[2019-11-13] MEDS: ENOXAPARIN NA (PORCINE) 30 MG/0.3 ML DISP.SYRIN SQ SCH (10:19)
[2019-11-13] MEDS: PANTOPRAZOLE 40 MG TABLET PO SCH (10:19)
[2019-11-13] MEDS: AMINO ACIDS/PROTEIN HYDROLYS 30 ML LIQUID.PKT PO SCH ×2 (10:19→16:44)
[2019-11-13] MEDS: NYSTATIN POWDER 100,000 UNITS/GM - 15 GM TOPICAL POWDER TP SCH ×2 (10:19→22:13)
[2019-11-13] MEDS: CALCIUM CARBONATE 650 MG TABLET PO SCH (10:23)
[2019-11-13] MEDS: IRON POLYSACCHARIDES 150 MG CAPSULE PO SCH (10:23)
[2019-11-13] MEDS: CEFAZOLIN 500 MG in DEXTROSE 5%-WATER - 50 ML IVPB SCH ×2 (10:34→22:13)
--- NOTE | 2019-11-13 11:40 | PN ---
Progress Note, Physician Chief Complaint: UTI Anemia Abdominal Pain History of Present Illness: Previous notes and events reviewed awake and alert NAD denies complaints of chest pain or SOB no acute events overnight no leukocytosis afebrile pending Renal US results - Current Medication List Current Medications: Active Medications Amino Acids (Prosource No Carb Liquid Pkt) 30 ml PO BID@0800,1730 [facility] Last Admin: 11/13/19 10:19 Dose: 30 ml Calcium Carbonate (Calcium Carbonate -) 650 mg PO DAILY [facility] Last Admin: 11/13/19 10:23 Dose: 650 mg Enoxaparin Sodium (Lovenox -) 30 mg SQ DAILY [facility] Last Admin: 11/13/19 10:19 Dose: 30 mg Cefazolin Sodium 500 mg/ (Dextrose) 50 mls @ 100 mls/hr IVPB BID [facility] Last Admin: 11/13/19 10:34 Dose: 100 mls/hr Dextrose/Sodium Chloride (D5-Ns -) 1,000 mls @ 75 mls/hr IV ASDIR [facility] Last Admin: 11/12/19 11:45 Dose: Not Given Insulin Aspart (Novolog Vial Sliding Scale -) 1 vial SQ BIDAC [facility]; Protocol Last Admin: 11/13/19 06:29 Dose: Not Given Metoclopramide HCl (Reglan -) 10 mg PO ACHS [facility] Last Admin: 11/13/19 10:19 Dose: 10 mg Nystatin (Nystop Powder -) 1 applic TP BID [facility] Last Admin: 11/13/19 10:19 Dose: 1 applic Pantoprazole Sodium (Protonix -) 40 mg PO DAILY [facility] Last Admin: 11/13/19 10:19 Dose: 40 mg Polysaccharide Iron Complex (Niferex-150 -) 150 mg PO DAILY [facility] Last Admin: 11/13/19 10:23 Dose: 150 mg Simethicone (Mylicon -) 80 mg PO TID [facility] Last Admin: 11/13/19 06:29 Dose: 80 mg - Objective Vital Signs: Vital Signs Temperature 98.1 F 11/13/19 07:37 Pulse Rate 80 11/13/19 07:37 Respiratory Rate 20 11/13/19 07:37 Blood Pressure 124/78 11/13/19 07:37 O2 Sat by Pulse Oximetry (%) 97 11/12/19 21:00 Constitutional: Yes: No Distress, Calm Eyes: Yes: Conjunctiva Clear HENT: Yes: Atraumatic Cardiovascular: Yes: Regular Rate and Rhythm Respiratory: Yes: Regular, Diminished, On Nasal O2 Gastrointestinal: Yes: Normal Bowel Sounds, Soft, Tenderness (rlq), Other ( colostomy) Genitourinary: Yes: Rowe Present Musculoskeletal: Yes: Muscle Weakness Extremities: Yes: WNL Edema: No Integumentary: Yes: Pressure Ulcer Wound/Incision: Yes: Dressing Dry and Intact Neurological: Yes: Alert, Pre-Existing Deficit Psychiatric: Yes: Alert Labs: CBC, BMP 11/13/19 07:30 11/13/19 07:30 Microbiology 11/11/19 10:50 Urine - Urine Suprapubic Urine Culture - Final Proteus Mirabilis 11/08/19 17:00 Blood - Peripheral Venous Blood Culture - Preliminary NO GROWTH OBTAINED AFTER 96 HOURS, INCUBATION TO CONTINUE FOR 1 DAYS. 11/08/19 17:00 Blood - Peripheral Venous Blood Culture - Preliminary NO GROWTH OBTAINED AFTER 96 HOURS, INCUBATION TO CONTINUE FOR 1 DAYS. 11/08/19 18:12 Urine - Urine - Catheterized Urine Culture - Final Contaminated: Please Repeat Problem List - Problems (1) Abdominal pain Assessment/Plan: -CTAP shows pancreatic calcifications suspicious for chronic calcific pancreatitis, cholelithiasis, moderately severe left sided hydronephrosis and hydroureter without obvious obstructin, s/p suprapubic cystostomy tube distal portion of the tbe could be obstructing the L UVJ, marked thickening of urinary bladder and cystitis cannot be excluded, s/p rectosigmoid colostomy with no evidence of of bowel obstruction -Surgery on board, no surgical internevtion needed at present -no leukocytosis -afebrile -Cefazolin -ID on board Code(s): R10.9 - UNSPECIFIED ABDOMINAL PAIN Qualifiers: Abdominal location: generalized Qualified Code(s): R10.84 - Generalized abdominal pain (2) Diabetes Assessment/Plan: -BGM ACHS -ISS -HgA1c 4.4% -diabetic diet Code(s): E11.9 - TYPE 2 DIABETES MELLITUS WITHOUT COMPLICATIONS (3) Functional quadriplegia Assessment/Plan: -PT -Fall precaution Code(s): R53.2 - FUNCTIONAL QUADRIPLEGIA (4) HTN (hypertension) Assessment/Plan: -low Na diet -monitor BP Code(s): I10 - ESSENTIAL (PRIMARY) HYPERTENSION (5) Sacral decubitus ulcer, stage IV Assessment/Plan: -Plastics consult -turn q2h -offloading -CTAP shows large decubitis ulceration with prior coccygeal excision, acute/ chronic osteomyelitis cannot be excluded Code(s): L89.154 - PRESSURE ULCER OF SACRAL REGION, STAGE 4 (6) UTI (urinary tract infection) Assessment/Plan: -Urology consult -CTAP shows pancreatic calcifications suspicious for chronic calcific pancreatitis, cholelithiasis, moderately severe left sided hydronephrosis and hydroureter without obvious obstructin, s/p suprapubic cystostomy tube distal portion of the tbe could be obstructing the L UVJ, marked thickening of urinary bladder and cystitis cannot be excluded, s/p rectosigmoid colostomy with no evidence of of bowel obstruction -UA shows 3+ leuks, 3+ blood, 3+ protein -repeat UC positive for proteus -BC neg -no leukocytosis -afebrile -Cefazolin Code(s): N39.0 - URINARY TRACT INFECTION, SITE NOT SPECIFIED Qualifiers: Hematuria presence: with hematuria (7) Anemia Assessment/Plan: -Hg 9.2 -s/p 1U PRBC transfusion this admission -monitor Hg daily -Anemia profile shows low Iron 22, TIBC 175, Iron Sat 12 -Stool OB ordered -transfuse for Hg <8.0 -Iron Polysaccharide Code(s): D64.9 - ANEMIA, UNSPECIFIED (8) Hydronephrosis Assessment/Plan: -Urology consult -CTAP shows pancreatic calcifications suspicious for chronic calcific pancreatitis, cholelithiasis, moderately severe left sided hydronephrosis and hydroureter without obvious obstructin, s/p suprapubic cystostomy tube distal portion of the tbe could be obstructing the L UVJ, marked thickening of urinary bladder and cystitis cannot be excluded, s/p rectosigmoid colostomy with no evidence of of bowel obstruction -Renal US results pending Code(s): N13.30 - UNSPECIFIED HYDRONEPHROSIS Assessment/Plan see problem list dvt ppx
[2019-11-13] MEDS: DEXTROSE 5%-NORMAL SALINE 1,000 ML IV SCH ×2 (11:45→14:35)
[2019-11-14] MEDS: SIMETHICONE 80 MG TAB.CHEW (FP) PO SCH ×3 (06:49→23:09)
[2019-11-14] MEDS: INSULIN SLIDING SCALE (NOVOLOG) 1 VIAL SQ SCH ×2 (06:49→17:55)
[2019-11-14] MEDS: METOCLOPRAMIDE HCL 10 MG TABLET (FP) PO SCH ×4 (06:49→23:09)
--- NOTE | 2019-11-14 10:13 | PN ---
Progress Note, Physician - Current Medication List Current Medications: Active Medications Amino Acids (Prosource No Carb Liquid Pkt) 30 ml PO BID@0800,1730 [facility] Last Admin: 11/13/19 16:44 Dose: 30 ml Calcium Carbonate (Calcium Carbonate -) 650 mg PO DAILY [facility] Last Admin: 11/13/19 10:23 Dose: 650 mg Enoxaparin Sodium (Lovenox -) 30 mg SQ DAILY [facility] Last Admin: 11/13/19 10:19 Dose: 30 mg Cefazolin Sodium 500 mg/ (Dextrose) 50 mls @ 100 mls/hr IVPB BID [facility] Last Admin: 11/13/19 22:13 Dose: 100 mls/hr Dextrose/Sodium Chloride (D5-Ns -) 1,000 mls @ 75 mls/hr IV ASDIR [facility] Last Admin: 11/13/19 14:35 Dose: 75 mls/hr [facility]ulin [facility]art ([facility] Last Admin: 11/14/19 06:49 Dose: Not Given Metoclopramide HCl (Reglan -) 10 mg PO ACHS [facility] Last Admin: 11/14/19 06:49 Dose: 10 mg Nystatin (Nystop Powder -) 1 applic TP BID [facility] Last Admin: 11/13/19 22:13 Dose: 1 applic Pantoprazole Sodium (Protonix -) 40 mg PO DAILY [facility] Last Admin: 11/13/19 10:19 Dose: 40 mg Polysaccharide Iron Complex (Niferex-150 -) 150 mg PO DAILY [facility] Last Admin: 11/13/19 10:23 Dose: 150 mg Simethicone (Mylicon -) 80 mg PO TID [facility] Last Admin: 11/14/19 06:49 Dose: 80 mg - Objective Vital Signs: Vital Signs Temperature 98.1 F 11/14/19 05:00 Pulse Rate 90 11/14/19 05:00 Respiratory Rate 20 11/14/19 05:00 Blood Pressure 142/64 11/14/19 05:00 O2 Sat by Pulse Oximetry (%) 99 11/13/19 09:00 Cardiovascular: Yes: Regular Rate and Rhythm Respiratory: Yes: Regular, CTA Bilaterally Gastrointestinal: Yes: Normal Bowel Sounds, Soft Labs: CBC, BMP 11/13/19 07:30 11/13/19 07:30 Assessment/Plan Problems (1) Abdominal pain Assessment/Plan: -CTAP shows pancreatic calcifications suspicious for chronic calcific pancreatitis, cholelithiasis, moderately severe left sided hydronephrosis and hydroureter without obvious obstructin, s/p suprapubic cystostomy tube distal portion of the tbe could be obstructing the L UVJ, marked thickening of urinary bladder and cystitis cannot be excluded, s/p rectosigmoid colostomy with no evidence of of bowel obstruction -Surgery on board, no surgical internevtion needed at present -no leukocytosis -afebrile -Cefazolin -ID on board Code(s): R10.9 - UNSPECIFIED ABDOMINAL PAIN Qualifiers: Abdominal location: generalized Qualified Code(s): R10.84 - Generalized abdominal pain (2) Diabetes Assessment/Plan: -BGM ACHS -ISS -HgA1c 4.4% -diabetic diet Code(s): E11.9 - TYPE 2 DIABETES MELLITUS WITHOUT COMPLICATIONS (3) Functional quadriplegia Assessment/Plan: -PT -Fall precaution Code(s): R53.2 - FUNCTIONAL QUADRIPLEGIA (4) HTN (hypertension) Assessment/Plan: -low Na diet -monitor BP Code(s): I10 - ESSENTIAL (PRIMARY) HYPERTENSION (5) Sacral decubitus ulcer, stage IV Assessment/Plan: -Plastics consult -turn q2h -offloading -CTAP shows large decubitis ulceration with prior coccygeal excision, acute/ chronic osteomyelitis cannot be excluded Code(s): L89.154 - PRESSURE ULCER OF SACRAL REGION, STAGE 4 (6) UTI (urinary tract infection) Assessment/Plan: -Urology consult -CTAP shows pancreatic calcifications suspicious for chronic calcific pancreatitis, cholelithiasis, moderately severe left sided hydronephrosis and hydroureter without obvious obstructin, s/p suprapubic cystostomy tube distal portion of the tbe could be obstructing the L UVJ, marked thickening of urinary bladder and cystitis cannot be excluded, s/p rectosigmoid colostomy with no evidence of of bowel obstruction -UA shows 3+ leuks, 3+ blood, 3+ protein -repeat UC positive for proteus -BC neg -no leukocytosis -afebrile -Cefazolin Code(s): N39.0 - URINARY TRACT INFECTION, SITE NOT SPECIFIED Qualifiers: Hematuria presence: with hematuria (7) Anemia Assessment/Plan: -Hg 9.2 -s/p 1U PRBC transfusion this admission -monitor Hg daily -Anemia profile shows low Iron 22, TIBC 175, Iron Sat 12 -Stool OB ordered -transfuse for Hg <8.0 -Iron Polysaccharide Code(s): D64.9 - ANEMIA, UNSPECIFIED (8) Hydronephrosis Assessment/Plan: -Urology consult -CTAP shows pancreatic calcifications suspicious for chronic calcific pancreatitis, cholelithiasis, moderately severe left sided hydronephrosis and hydroureter without obvious obstructin, s/p suprapubic cystostomy tube distal portion of the tbe could be obstructing the L UVJ, marked thickening of urinary bladder and cystitis cannot be excluded, s/p rectosigmoid colostomy with no evidence of of bowel obstruction -Renal US results pending Code(s): N13.30 - UNSPECIFIED HYDRONEPHROSIS
[2019-11-14] MEDS: CEFAZOLIN 500 MG in DEXTROSE 5%-WATER - 50 ML IVPB SCH (10:55)
[2019-11-14] MEDS: ENOXAPARIN NA (PORCINE) 30 MG/0.3 ML DISP.SYRIN SQ SCH (10:55)
[2019-11-14] MEDS: AMINO ACIDS/PROTEIN HYDROLYS 30 ML LIQUID.PKT PO SCH ×2 (10:55→17:50)
[2019-11-14] MEDS: PANTOPRAZOLE 40 MG TABLET PO SCH (10:55)
[2019-11-14] MEDS: CALCIUM CARBONATE 650 MG TABLET PO SCH (10:56)
[2019-11-14] MEDS: IRON POLYSACCHARIDES 150 MG CAPSULE PO SCH (10:56)
[2019-11-14] MEDS: NYSTATIN POWDER 100,000 UNITS/GM - 15 GM TOPICAL POWDER TP SCH ×2 (10:57→23:09)
[2019-11-14] MEDS: DEXTROSE 5%-NORMAL SALINE 1,000 ML IV SCH (12:19)
[2019-11-14 12:23] LABS: HEMATOCRIT 27.7 % (35.4-49); MCH 27.9 pg (25.7-33.7); MCHC 32.5 g/dl (32.0-35.9); MEAN CELL VOLUME 85.6 fl (80-96); MEAN PLT VOLUME 6.3 fl (7.5-11.1); PLATELET COUNT 219 K/MM3 (134-434); RBC 3.24 M/mm3 (4.00-5.60); RDW 15.8 % (11.9-15.9); WHITE BLOOD COUNT 5.2 K/mm3 (4.0-10.0)
[2019-11-14 12:51] LABS: ALBUMIN 1.5 g/dl (3.4-5.0); ANION GAP 5 MMOL/L (8-16); BILIRUBIN,TOTAL 0.1 mg/dL (0.2-1); CALCIUM 7.5 mg/dL (8.5-10.1); CHLORIDE 113 mmol/L (98-107); CO2 24 mmol/L (21-32); CREATININE 0.9 mg/dL (0.55-1.3); MAGNESIUM 1.5 mg/dL (1.8-2.4); PHOSPHOROUS 1.9 mg/dL (2.5-4.9); POTASSIUM 5.2 mmol/L (3.5-5.1); SGOT/AST 10 U/L (15-37); SGPT/ALT < 6 U/L (13-61); SODIUM 141 mmol/L (136-145); TOT PROT 4.6 g/dl (6.4-8.2)
[2019-11-14 12:52] LABS: ALK PHOS 62 U/L (45-117); GLUCOSE,RANDOM 117 mg/dL (74-106)
--- NOTE | 2019-11-14 12:55 | PN ---
Progress Note (short form) - Note Progress Note: Renal follow up for Acute kidney injury Seen and examined at the bedside no acute complaints eating well as per nurse IV line infiltrated making urine Vital Signs Temperature 98.8 F 11/14/19 09:00 Pulse Rate 74 11/14/19 09:00 Respiratory Rate 18 11/14/19 09:00 Blood Pressure 150/68 11/14/19 09:00 O2 Sat by Pulse Oximetry (%) 99 11/13/19 09:00 Intake & Output 11/11/19 11/12/19 11/13/19 11/14/19 23:59 23:59 23:59 23:59 Intake Total 1380 2012 925 1086 Output Total 1040 1850 1700 Balance 340 162 -775 1086 Weight 51.256 kg NAD RRR CTA soft, NT/ND no CVA tenderness SPC in place no LE edema CBC, BMP 11/14/19 11:50 11/14/19 11:50 Current Medications Amino Acids (Prosource No Carb Liquid Pkt) 30 ml PO BID@0800,1730 [facility] Last Admin: 11/14/19 10:55 Dose: 30 ml Calcium Carbonate (Calcium Carbonate -) 650 mg PO DAILY [facility] Last Admin: 11/14/19 10:56 Dose: 650 mg Enoxaparin Sodium (Lovenox -) 30 mg SQ DAILY [facility] Last Admin: 11/14/19 10:55 Dose: 30 mg Cefazolin Sodium 500 mg/ (Dextrose) 50 mls @ 100 mls/hr IVPB BID [facility] Last Admin: 11/14/19 10:55 Dose: 100 mls/hr Insulin Aspart (Novolog Vial Sliding Scale -) 1 vial SQ BIDAC [facility]; Protocol Last Admin: 11/14/19 06:49 Dose: Not Given Metoclopramide HCl (Reglan -) 10 mg PO ACHS [facility] Last Admin: 11/14/19 06:49 Dose: 10 mg Nystatin (Nystop Powder -) 1 applic TP BID [facility] Last Admin: 11/14/19 10:57 Dose: 1 applic Pantoprazole Sodium (Protonix -) 40 mg PO DAILY [facility] Last Admin: 11/14/19 10:55 Dose: 40 mg Polysaccharide Iron Complex (Niferex-150 -) 150 mg PO DAILY [facility] Last Admin: 11/14/19 10:56 Dose: 150 mg Simethicone (Mylicon -) 80 mg PO TID [facility] Last Admin: 11/14/19 06:49 Dose: 80 mg 73 year old male with history of quadriplegia, neurogenic bladder with SPC, hypertension, DM, sigmoid volvolus s/p [place] with recent hospital admission for SBO requiring TPN presents with abdominal pain and found to have left sided hydronephrosis and MARTINEZ with Cr of 1.5. 1. Acute kidney injury 2. Left sided hydronephrosis with possible SPC obstructing UVJ 3. Anemia with iron deficiency 4. Hx of recent SBO 5. Possible infection/pyuria 6. Hyperkalemia Etiology of kidney injury likely multi-factorial from volume depletion + unilateral obstruction Renal function improved back to baseline SPC catheter changed by urology. Repeat US is pending. antibiotics as per ID, Urine culture grew proteous will D/c IVF as renal function is at baseline and pt appears euvolemic change diet to low potassium Trend renal function daily Thank you Arias Eubanks DO
[2019-11-14] MEDS: CEPHALEXIN MONOHYDRATE 500 MG CAPSULE (UD) PO SCH ×2 (15:30→23:09)
[2019-11-15] MEDS: INSULIN SLIDING SCALE (NOVOLOG) 1 VIAL SQ SCH ×2 (06:39→17:16)
[2019-11-15] MEDS: SIMETHICONE 80 MG TAB.CHEW (FP) PO SCH ×3 (06:40→22:51)
[2019-11-15] MEDS: CEPHALEXIN MONOHYDRATE 500 MG CAPSULE (UD) PO SCH ×3 (06:40→22:51)
[2019-11-15] MEDS: METOCLOPRAMIDE HCL 10 MG TABLET (FP) PO SCH ×5 (06:40→22:51)
[2019-11-15] MEDS ORDERED: PT OWN MED DRAWER 7, Y5N ONE (08:05)
[2019-11-15] MEDS: AMINO ACIDS/PROTEIN HYDROLYS 30 ML LIQUID.PKT PO SCH ×2 (08:07→17:16)
--- NOTE | 2019-11-15 09:12 | PN ---
Progress Note, Physician - Current Medication List Current Medications: Active Medications Amino Acids (Prosource No Carb Liquid Pkt) 30 ml PO BID@0800,1730 [facility] Last Admin: 11/15/19 08:07 Dose: Not Given Calcium Carbonate (Calcium Carbonate -) 650 mg PO DAILY [facility] Last Admin: 11/14/19 10:56 Dose: 650 mg Cephalexin HCl (Keflex -) 500 mg PO TID [facility] Last Admin: 11/15/19 06:40 Dose: 500 mg Enoxaparin Sodium (Lovenox -) 30 mg SQ DAILY [facility] Last Admin: 11/14/19 10:55 Dose: 30 mg Insulin Aspart ([facility] Vial Sliding Scale -) [facility]; Protocol Last Admin: 11/15/19 06:39 Dose: Not Given Metoclopramide HCl (Reglan -) 10 mg PO ACHS [facility] Last Admin: 11/15/19 06:40 Dose: 10 mg Nystatin (Nystop Powder -) 1 applic TP BID [facility] Last Admin: 11/14/19 23:09 Dose: 1 applic Pantoprazole Sodium (Protonix -) 40 mg PO DAILY [facility] Last Admin: 11/14/19 10:55 Dose: 40 mg Polysaccharide Iron Complex (Niferex-150 -) 150 mg PO DAILY [facility] Last Admin: 11/14/19 10:56 Dose: 150 mg Simethicone (Mylicon -) 80 mg PO TID [facility] Last Admin: 11/15/19 06:40 Dose: 80 mg - Objective Vital Signs: Vital Signs Temperature 98.2 F 11/15/19 06:24 Pulse Rate 80 11/15/19 06:24 Respiratory Rate 20 11/15/19 06:24 Blood Pressure 152/70 11/15/19 06:24 O2 Sat by Pulse Oximetry (%) 99 11/13/19 09:00 Cardiovascular: Yes: Regular Rate and Rhythm Respiratory: Yes: Regular, CTA Bilaterally Gastrointestinal: Yes: Normal Bowel Sounds, Soft Labs: CBC, BMP 11/14/19 11:50 11/14/19 11:50 Assessment/Plan Problems (1) Abdominal pain Assessment/Plan: -Resolved -CTAP shows pancreatic calcifications suspicious for chronic calcific pancreatitis, cholelithiasis, moderately severe left sided hydronephrosis and hydroureter without obvious obstructin, s/p suprapubic cystostomy tube distal portion of the tbe could be obstructing the L UVJ, marked thickening of urinary bladder and cystitis cannot be excluded, s/p rectosigmoid colostomy with no evidence of of bowel obstruction -Surgery on board, no surgical internevtion needed at present -no leukocytosis -afebrile -Cefazolin -ID on board Code(s): R10.9 - UNSPECIFIED ABDOMINAL PAIN Qualifiers: Abdominal location: generalized Qualified Code(s): R10.84 - Generalized abdominal pain (2) Diabetes Assessment/Plan: -BGM ACHS -ISS -HgA1c 4.4% -diabetic diet Code(s): E11.9 - TYPE 2 DIABETES MELLITUS WITHOUT COMPLICATIONS (3) Functional quadriplegia Assessment/Plan: -PT -Fall precaution Code(s): R53.2 - FUNCTIONAL QUADRIPLEGIA (4) Rasheed Assessment/Plan: -Improved -Follow labs (5) Sacral decubitus ulcer, stage IV Assessment/Plan: -Plastics consult -turn q2h -offloading -CTAP shows large decubitis ulceration with prior coccygeal excision, acute/ chronic osteomyelitis cannot be excluded Code(s): L89.154 - PRESSURE ULCER OF SACRAL REGION, STAGE 4 (6) UTI (urinary tract infection) Assessment/Plan: -Urology consult -CTAP shows pancreatic calcifications suspicious for chronic calcific pancreatitis, cholelithiasis, moderately severe left sided hydronephrosis and hydroureter without obvious obstructin, s/p suprapubic cystostomy tube distal portion of the tbe could be obstructing the L UVJ, marked thickening of urinary bladder and cystitis cannot be excluded, s/p rectosigmoid colostomy with no evidence of of bowel obstruction -UA shows 3+ leuks, 3+ blood, 3+ protein -repeat UC positive for proteus -BC neg -no leukocytosis -afebrile -Cefazolin Code(s): N39.0 - URINARY TRACT INFECTION, SITE NOT SPECIFIED Qualifiers: Hematuria presence: with hematuria (7) Anemia Assessment/Plan: -Hg 9.2 -s/p 1U PRBC transfusion this admission -monitor Hg daily -Anemia profile shows low Iron 22, TIBC 175, Iron Sat 12 -Stool OB ordered -transfuse for Hg <8.0 -Iron Polysaccharide Code(s): D64.9 - ANEMIA, UNSPECIFIED (8) Hydronephrosis Assessment/Plan: -Urology consult -CTAP shows pancreatic calcifications suspicious for chronic calcific pancreatitis, cholelithiasis, moderately severe left sided hydronephrosis and hydroureter without obvious obstructin, s/p suprapubic cystostomy tube distal portion of the tbe could be obstructing the L UVJ, marked thickening of urinary bladder and cystitis cannot be excluded, s/p rectosigmoid colostomy with no evidence of of bowel obstruction -Renal US results persistent hydro--urology follow up Code(s): N13.30 - UNSPECIFIED HYDRONEPHROSIS
[2019-11-15] MEDS ORDERED: MIDAZOLAM HCL 2 MG/2 ML SINGLE DOSE VIAL ONE (09:45)
[2019-11-15] MEDS: CALCIUM CARBONATE 650 MG TABLET PO SCH (09:45)
[2019-11-15] MEDS: NYSTATIN POWDER 100,000 UNITS/GM - 15 GM TOPICAL POWDER TP SCH ×2 (09:46→22:52)
[2019-11-15] MEDS ORDERED: PROPOFOL 20 ML ONE (09:46)
[2019-11-15] MEDS: IRON POLYSACCHARIDES 150 MG CAPSULE PO SCH (09:46)
[2019-11-15] MEDS: ENOXAPARIN NA (PORCINE) 30 MG/0.3 ML DISP.SYRIN SQ SCH (09:46)
[2019-11-15] MEDS ORDERED: ROCURONIUM BROMIDE 50 MG/5 ML SYRINGE ONE (09:46)
[2019-11-15] MEDS: PANTOPRAZOLE 40 MG TABLET PO SCH (09:46)
[2019-11-15 09:56] LABS: ALBUMIN 1.5 g/dl (3.4-5.0); ALK PHOS 69 U/L (45-117); ANION GAP 2 MMOL/L (8-16); BILIRUBIN,TOTAL 0.3 mg/dL (0.2-1); BLOOD UREA NITROGEN 31.2 mg/dL (7-18); CALCIUM 7.8 mg/dL (8.5-10.1); CHLORIDE 112 mmol/L (98-107); CO2 26 mmol/L (21-32); CREATININE 0.9 mg/dL (0.55-1.3); GLUCOSE,RANDOM 88 mg/dL (74-106); MAGNESIUM 1.4 mg/dL (1.8-2.4); PHOSPHOROUS 1.8 mg/dL (2.5-4.9); POTASSIUM 5.2 mmol/L (3.5-5.1); SGOT/AST 12 U/L (15-37); SGPT/ALT < 6 U/L (13-61); SODIUM 141 mmol/L (136-145); TOT PROT 5.2 g/dl (6.4-8.2)
--- NOTE | 2019-11-15 10:38 | OP ---
Operative Note - Note: Operative Date: 11/15/19 Pre-Operative Diagnosis: Left hydronephrosis Operation: Cysto attempted retro and stent placement Findings: Severe cystitic changes, large multiple bladder tumor, unable to catheterize left ureteral orifice Post-Operative Diagnosis: Same as Pre-op Surgeon: Galina Johnson Anesthesia: General Operative Report Dictated: Yes
--- NOTE | 2019-11-15 11:58 | OP ---
DATE OF OPERATION: 11/15/2019 SURGEON: Galina Johnson MD ANESTHESIA: General. PREOPERATIVE DIAGNOSIS: Severe left hydronephrosis. POSTOPERATIVE DIAGNOSIS: Severe left hydronephrosis. PROCEDURE: Cystoscopy, attempted retrograde stent placement. FINDINGS: Severe changes noted. Right ureteral orifice was noted clearly. Left ureteral orifice area was filled with tumorous lesions and some major scar tissue probably from a previous resection. Large bladder tumor noted in the dome of the bladder extending onto the lateral michael. The suprapubic tube seen, and the tumor was surrounding the anterior suprapubic tube. Bladder neck is open. DESCRIPTION OF PROCEDURE: Patient in lithotomy position. Under anesthesia, was prepped and draped in the usual manner. Cystoscopy performed, and findings were noted above. Numerous attempts to catheterize the left ureteral orifice was not successfully, so the procedure was abandoned. Patient left the operating room under satisfactory condition. Chloe [id number]
[2019-11-15] MEDS ORDERED: INSULIN (NOVOLOG) ASPART 100 UNITS/ML 10ML VIAL ONE (17:29)
--- NOTE | 2019-11-15 19:01 | PN ---
Progress Note, Physician History of Present Illness: Pt seen and examined at bedside. He has poor PO intake. - Current Medication List Current Medications: Active Medications Amino Acids (Prosource No Carb Liquid Pkt) 30 ml PO BID@0800,1730 [facility] Last Admin: 11/15/19 17:16 Dose: 30 ml Calcium Carbonate (Calcium Carbonate -) 650 mg PO DAILY [facility] Cephalexin HCl (Keflex -) 500 mg PO TID [facility] Last Admin: 11/15/19 14:28 Dose: 500 mg Enoxaparin Sodium (Lovenox -) 30 mg SQ DAILY [facility] Insulin Aspart (Novolog Vial Sliding [facility] -) [facility] Protocol Last Admin: 11/15/19 17:16 Dose: Not Given Metoclopramide HCl (Reglan -) 10 mg PO ACHS [facility] Last Admin: 11/15/19 17:16 Dose: 10 mg Nystatin (Nystop Powder -) 1 applic TP BID [facility] Pantoprazole Sodium (Protonix -) 40 mg PO DAILY [facility] Polysaccharide Iron Complex (Niferex-150 -) 150 mg PO DAILY [facility] Simethicone (Mylicon -) 80 mg PO TID [facility] Last Admin: 11/15/19 14:28 Dose: 80 mg - Objective Vital Signs: Vital Signs Temperature 98.5 F 11/15/19 16:25 Pulse Rate 74 11/15/19 16:25 Respiratory Rate 18 11/15/19 16:25 Blood Pressure 145/73 11/15/19 16:25 O2 Sat by Pulse Oximetry (%) 100 11/15/19 12:37 Constitutional: Yes: Calm, Cachectic Eyes: Yes: Conjunctiva Clear HENT: Yes: Atraumatic Cardiovascular: Yes: S1, S2 Respiratory: Yes: CTA Bilaterally Gastrointestinal: Yes: Soft Genitourinary: Yes: WNL Musculoskeletal: Yes: WNL Edema: No Neurological: Yes: Oriented Psychiatric: Yes: Oriented Labs: CBC, BMP 11/14/19 11:50 11/15/19 08:47 Assessment/Plan Current Medications Generic Name Dose Route Start Last Admin Trade Name Freq PRN Reason Stop Dose Admin Amino Acids 30 ml 11/15/19 17:30 11/15/19 17:16 Prosource No Carb Liquid Pkt PO 30 ml BID@0800,1730 [facility] Administration Calcium Carbonate 650 mg 11/16/19 10:00 Calcium Carbonate - PO DAILY [facility] Cephalexin HCl 500 mg 11/15/19 14:00 11/15/19 14:28 Keflex - PO 500 mg TID [facility] Administration Enoxaparin Sodium 30 mg 11/16/19 10:00 Lovenox - SQ DAILY [facility] Insulin Aspart 1 vial 11/15/19 16:30 11/15/19 17:16 Novolog Vial Sliding Scale - SQ Not Given BIDAC [facility] Protocol Metoclopramide HCl 10 mg 11/15/19 11:00 11/15/19 17:16 Reglan - PO 10 mg ACHS [facility] Administration Nystatin 1 applic 11/15/19 22:00 Nystop Powder - TP BID [facility] Pantoprazole Sodium 40 mg 11/16/19 10:00 Protonix - PO DAILY [facility] Polysaccharide Iron Complex 150 mg 11/16/19 10:00 Niferex-150 - PO DAILY [facility] Simethicone 80 mg 11/15/19 14:00 11/15/19 14:28 Mylicon - PO 80 mg TID [facility] Administration 1. Acute kidney injury 2. Left sided hydronephrosis with possible SPC obstructing UVJ 3. Anemia with iron deficiency 4. Hx of recent SBO 5. Possible infection/pyuria 6. Hyperkalemia Plan - cont fluids, should help with decreasing potassium - repeat labs in am - replace magnesium - discussed with family
[2019-11-15] MEDS ORDERED: MAGNESIUM SULF 50% (8.12 MEQ/2 ML-1 GM VIAL) IVPB ONE (19:11)
[2019-11-15] MEDS ORDERED: SODIUM CHLORIDE 0.45% 1,000 ML IV SCH (19:15)
[2019-11-16] MEDS: CEPHALEXIN MONOHYDRATE 500 MG CAPSULE (UD) PO SCH ×3 (06:36→22:49)
[2019-11-16] MEDS: SIMETHICONE 80 MG TAB.CHEW (FP) PO SCH ×3 (06:37→22:49)
[2019-11-16] MEDS: METOCLOPRAMIDE HCL 10 MG TABLET (FP) PO SCH ×4 (06:37→22:49)
--- NOTE | 2019-11-16 07:53 | PN ---
Progress Note, Physician - Current Medication List Current Medications: Active Medications Amino Acids (Prosource No Carb Liquid Pkt) 30 ml PO BID@0800,1730 [facility] Last Admin: 11/15/19 17:16 Dose: 30 ml Calcium Carbonate (Calcium Carbonate -) 650 mg PO DAILY [facility] Cephalexin HCl (Keflex -) 500 mg PO TID [facility] Last Admin: 11/16/19 06:36 Dose: 500 mg Enoxaparin Sodium (Lovenox -) 30 mg SQ DAILY [facility] Sodium Chloride (1/2 Normal Saline) 1,000 mls @ 50 mls/hr IV ASDIR [facility] Stop: 11/16/19 19:02 Last Admin: 11/15/19 23:14 Dose: 50 mls/hr Insulin Aspart ([facility]iding [facility] -) [facility]; Protocol Last Admin: 11/15/19 17:16 Dose: Not Given Metoclopramide HCl (Reglan -) 10 mg PO ACHS [facility] Last Admin: 11/16/19 06:37 Dose: 10 mg Nystatin (Nystop Powder -) 1 applic TP BID [facility] Last Admin: 11/15/19 22:52 Dose: 1 applic Pantoprazole Sodium (Protonix -) 40 mg PO DAILY [facility] Polysaccharide Iron Complex (Niferex-150 -) 150 mg PO DAILY [facility] Simethicone (Mylicon -) 80 mg PO TID [facility] Last Admin: 11/16/19 06:37 Dose: 80 mg - Objective Vital Signs: Vital Signs Temperature 98 F 11/16/19 06:13 Pulse Rate 80 11/16/19 06:13 Respiratory Rate 20 11/16/19 06:13 Blood Pressure 128/62 11/16/19 06:13 O2 Sat by Pulse Oximetry (%) 100 11/15/19 21:00 Cardiovascular: Yes: Regular Rate and Rhythm Respiratory: Yes: Regular, CTA Bilaterally Gastrointestinal: Yes: Normal Bowel Sounds, Soft, Other (colostomy) Genitourinary: Yes: Other (spt) Labs: CBC, BMP 11/14/19 11:50 11/15/19 08:47 Assessment/Plan Problems (1) Abdominal pain Assessment/Plan: -Resolved -CTAP shows pancreatic calcifications suspicious for chronic calcific pancreatitis, cholelithiasis, moderately severe left sided hydronephrosis and hydroureter without obvious obstructin, s/p suprapubic cystostomy tube distal portion of the tbe could be obstructing the L UVJ, marked thickening of urinary bladder and cystitis cannot be excluded, s/p rectosigmoid colostomy with no evidence of of bowel obstruction -Surgery on board, no surgical internevtion needed at present -no leukocytosis -afebrile -Cefazolin -ID on board Code(s): R10.9 - UNSPECIFIED ABDOMINAL PAIN Qualifiers: Abdominal location: generalized Qualified Code(s): R10.84 - Generalized abdominal pain (2) Diabetes Assessment/Plan: -BGM ACHS -ISS -HgA1c 4.4% -diabetic diet Code(s): E11.9 - TYPE 2 DIABETES MELLITUS WITHOUT COMPLICATIONS (3) Functional quadriplegia Assessment/Plan: -PT -Fall precaution Code(s): R53.2 - FUNCTIONAL QUADRIPLEGIA (4) Rasheed Assessment/Plan: -Improved -Follow labs (5) Sacral decubitus ulcer, stage IV Assessment/Plan: -Plastics consult -turn q2h -offloading -CTAP shows large decubitis ulceration with prior coccygeal excision, acute/ chronic osteomyelitis cannot be excluded Code(s): L89.154 - PRESSURE ULCER OF SACRAL REGION, STAGE 4 (6) UTI (urinary tract infection) Assessment/Plan: -Urology consult -CTAP shows pancreatic calcifications suspicious for chronic calcific pancreatitis, cholelithiasis, moderately severe left sided hydronephrosis and hydroureter without obvious obstructin, s/p suprapubic cystostomy tube distal portion of the tbe could be obstructing the L UVJ, marked thickening of urinary bladder and cystitis cannot be excluded, s/p rectosigmoid colostomy with no evidence of of bowel obstruction -UA shows 3+ leuks, 3+ blood, 3+ protein -repeat UC positive for proteus -BC neg -no leukocytosis -afebrile -Cefazolin Code(s): N39.0 - URINARY TRACT INFECTION, SITE NOT SPECIFIED Qualifiers: Hematuria presence: with hematuria (7) Anemia Assessment/Plan: -Hg 9.2 -s/p 1U PRBC transfusion this admission -monitor Hg daily -Anemia profile shows low Iron 22, TIBC 175, Iron Sat 12 -Stool OB ordered -transfuse for Hg <8.0 -Iron Polysaccharide Code(s): D64.9 - ANEMIA, UNSPECIFIED (8) Hydronephrosis Assessment/Plan: -Urology consult -CTAP shows pancreatic calcifications suspicious for chronic calcific pancreatitis, cholelithiasis, moderately severe left sided hydronephrosis and hydroureter without obvious obstructin, s/p suprapubic cystostomy tube distal portion of the tbe could be obstructing the L UVJ, marked thickening of urinary bladder and cystitis cannot be excluded, s/p rectosigmoid colostomy with no evidence of of bowel obstruction -Renal US results persistent hydro--urology follow up noted unable to complete stent--defer to uro Code(s): N13.30 - UNSPECIFIED HYDRONEPHROSIS
[2019-11-16 09:58] LABS: BLOOD UREA NITROGEN 25.5 mg/dL (7-18); CALCIUM 8.1 mg/dL (8.5-10.1); CREATININE 0.9 mg/dL (0.55-1.3); POTASSIUM 5.2 mmol/L (3.5-5.1)
--- NOTE | 2019-11-16 10:51 | PN ---
Progress Note (short form) - Note Progress Note: Pt. appears comfortable. Will ask radilogy to do PCN. for drainage of left kidney.
[2019-11-16] MEDS: PANTOPRAZOLE 40 MG TABLET PO SCH (11:15)
[2019-11-16] MEDS: AMINO ACIDS/PROTEIN HYDROLYS 30 ML LIQUID.PKT PO SCH ×2 (11:15→18:05)
[2019-11-16] MEDS: ENOXAPARIN NA (PORCINE) 30 MG/0.3 ML DISP.SYRIN SQ SCH (11:15)
[2019-11-16] MEDS: NYSTATIN POWDER 100,000 UNITS/GM - 15 GM TOPICAL POWDER TP SCH ×2 (11:16→22:50)
[2019-11-16] MEDS ORDERED: PT OWN MED DRAWER 7, Y5N ONE ×2 (11:19→21:01)
[2019-11-16] MEDS: CALCIUM CARBONATE 650 MG TABLET PO SCH (11:21)
[2019-11-16] MEDS: IRON POLYSACCHARIDES 150 MG CAPSULE PO SCH (11:21)
[2019-11-16] MEDS: INSULIN SLIDING SCALE (NOVOLOG) 1 VIAL SQ SCH ×2 (11:24→17:47)
[2019-11-16 12:46] LABS: INR 1.06 (0.83-1.09); PROTHROMBIN TIME (PATIENT) 12.5 SEC (9.7-13.0)
[2019-11-16] MEDS ORDERED: ACETAMINOPHEN 1000 MG/100 ML VIAL (NON FORMULARY) IVPB PRN (13:21)
[2019-11-16] MEDS ORDERED: SODIUM CHLORIDE 0.45% 1,000 ML IV SCH (13:23)
--- NOTE | 2019-11-16 15:05 | PN ---
Progress Note (short form) - Note Progress Note: Anesthesia postop note 74 y/o M s/p GA for cystoscopy POD#1, awake and alert, no complaints. No anesthesia complications.
--- NOTE | 2019-11-16 15:45 | PN ---
Progress Note (short form) - Note Progress Note: Renal follow up for Acute kidney injury Seen and examined at the bedside complains of abdominal pain no fever, chills, sob oral intake is good on IVF Vital Signs Temperature 98.5 F 11/16/19 14:00 Pulse Rate 75 11/16/19 14:00 Respiratory Rate 18 11/16/19 14:00 Blood Pressure 117/59 L 11/16/19 14:00 O2 Sat by Pulse Oximetry (%) 100 11/15/19 21:00 Intake & Output 11/13/19 11/14/19 11/15/19 11/16/19 23:59 23:59 23:59 23:59 Intake Total 925 1322 700 Output Total 1700 1400 1800 1200 Balance - -1200 NAD RRR CTA soft, NT/ND no CVA tenderness SPC in place no LE edema CBC, BMP 11/14/19 11:50 11/16/19 08:42 Current Medications Acetaminophen (Ofirmev Injection -) 1,000 mg IVPB Q8H PRN PRN Reason: PAIN LEVEL 7 - 10 Stop: 11/17/19 13:20 Amino Acids (Prosource No Carb Liquid Pkt) 30 ml PO BID@0800,1730 [facility] Last Admin: 11/16/19 11:15 Dose: 30 ml Calcium Carbonate (Calcium Carbonate -) 650 mg PO DAILY [facility] Last Admin: 11/16/19 11:21 Dose: 650 mg Cephalexin HCl (Keflex -) 500 mg PO TID [facility] Last Admin: 11/16/19 15:10 Dose: 500 mg Enoxaparin Sodium (Lovenox -) 30 mg SQ DAILY [facility] Last Admin: 11/16/19 11:15 Dose: 30 mg Sodium Chloride (1/2 Normal Saline) 1,000 mls @ 50 mls/hr IV ASDIR [facility] Stop: 11/17/19 06:00 Last Admin: 11/16/19 15:10 Dose: Not Given Insulin Aspart (Novolog Vial Sliding Scale -) 1 vial SQ BIDAC [facility]; Protocol Last Admin: 11/16/19 11:24 Dose: Not Given Metoclopramide HCl (Reglan -) 10 mg PO ACHS [facility] Last Admin: 11/16/19 12:37 Dose: 10 mg Nystatin (Nystop Powder -) 1 applic TP BID [facility] Last Admin: 11/16/19 11:16 Dose: 1 applic Pantoprazole Sodium (Protonix -) 40 mg PO DAILY [facility] Last Admin: 11/16/19 11:15 Dose: 40 mg Polysaccharide Iron Complex (Niferex-150 -) 150 mg PO DAILY [facility] Last Admin: 11/16/19 11:21 Dose: 150 mg Simethicone (Mylicon -) 80 mg PO TID [facility] Last Admin: 11/16/19 15:10 Dose: 80 mg 73 year old male with history of quadriplegia, neurogenic bladder with SPC, hypertension, DM, sigmoid volvolus s/p [place] with recent hospital admission for SBO requiring TPN presents with abdominal pain and found to have left sided hydronephrosis and MARTINEZ with Cr of 1.5. 1. Acute kidney injury 2. Left sided hydronephrosis with possible SPC obstructing UVJ 3. Anemia with iron deficiency 4. Hx of recent SBO 5. Possible infection/pyuria 6. Hyperkalemia Etiology of kidney injury likely multi-factorial from volume depletion + unilateral obstruction Renal function improved back to baseline Urology follow up, repeat US antibiotics as per ID, Urine culture grew proteous on IVF low potassium diet Trend renal function daily Thank you Arias Eubanks DO
[2019-11-17] MEDS: SIMETHICONE 80 MG TAB.CHEW (FP) PO SCH ×3 (06:15→22:53)
[2019-11-17] MEDS: METOCLOPRAMIDE HCL 10 MG TABLET (FP) PO SCH ×4 (06:16→22:53)
[2019-11-17] MEDS: INSULIN SLIDING SCALE (NOVOLOG) 1 VIAL SQ SCH ×2 (06:16→17:31)
[2019-11-17] MEDS: CEPHALEXIN MONOHYDRATE 500 MG CAPSULE (UD) PO SCH ×3 (06:16→22:53)
[2019-11-17 08:09] LABS: BLOOD UREA NITROGEN 30.1 mg/dL (7-18); CALCIUM 7.9 mg/dL (8.5-10.1); CREATININE 0.9 mg/dL (0.55-1.3)
--- NOTE | 2019-11-17 08:25 | PN ---
Progress Note, Physician - Current Medication List Current Medications: Active Medications Acetaminophen (Ofirmev Injection -) 1,000 mg IVPB Q8H PRN PRN Reason: PAIN LEVEL 7 - 10 Stop: 11/17/19 13:20 Amino Acids (Prosource No Carb Liquid Pkt) 30 ml PO BID@0800,1730 [facility] Last Admin: 11/16/19 18:05 Dose: 30 ml Calcium Carbonate (Calcium Carbonate -) 650 mg PO DAILY [facility] Last Admin: 11/16/19 11:21 Dose: 650 mg Cephalexin HCl (Keflex -) 500 mg PO TID [facility] Last Admin: 11/17/19 06:16 Dose: 500 mg Enoxaparin Sodium (Lovenox -) 30 mg SQ DAILY [facility] Last Admin: 11/16/19 11:15 Dose: 30 mg Insulin Aspart (Novolog Vial Sliding Scale -) [facility] Protocol Last Admin: 11/17/19 06:16 Dose: Not Given Metoclopramide HCl (Reglan -) 10 mg PO ACHS [facility] Last Admin: 11/17/19 06:16 Dose: 10 mg Nystatin (Nystop Powder -) 1 applic TP BID [facility] Last Admin: 11/16/19 22:50 Dose: 1 applic Pantoprazole Sodium (Protonix -) 40 mg PO DAILY [facility] Last Admin: 11/16/19 11:15 Dose: 40 mg Polysaccharide Iron Complex (Niferex-150 -) 150 mg PO DAILY [facility] Last Admin: 11/16/19 11:21 Dose: 150 mg Simethicone (Mylicon -) 80 mg PO TID [facility] Last Admin: 11/17/19 06:15 Dose: 80 mg - Objective Vital Signs: Vital Signs Temperature 98.1 F 11/17/19 07:12 Pulse Rate 80 11/17/19 07:12 Respiratory Rate 11/17/19 07:12 Blood Pressure 122/70 11/17/19 07:12 O2 Sat by Pulse Oximetry (%) 99 11/16/19 16:43 Cardiovascular: Yes: Regular Rate and Rhythm Respiratory: Yes: Regular, CTA Bilaterally Gastrointestinal: Yes: Normal Bowel Sounds, Soft Labs: CBC, BMP 11/14/19 11:50 11/17/19 07:20 INR, PTT INR 1.06 (0.83-1.09) 11/16/19 12:14 Assessment/Plan Problems (1) Abdominal pain Assessment/Plan: -Resolved -CTAP shows pancreatic calcifications suspicious for chronic calcific pancreatitis, cholelithiasis, moderately severe left sided hydronephrosis and hydroureter without obvious obstructin, s/p suprapubic cystostomy tube distal portion of the tbe could be obstructing the L UVJ, marked thickening of urinary bladder and cystitis cannot be excluded, s/p rectosigmoid colostomy with no evidence of of bowel obstruction -Surgery on board, no surgical internevtion needed at present -no leukocytosis -afebrile -Cefazolin -ID on board Code(s): R10.9 - UNSPECIFIED ABDOMINAL PAIN Qualifiers: Abdominal location: generalized Qualified Code(s): R10.84 - Generalized abdominal pain (2) Diabetes Assessment/Plan: -BGM ACHS -ISS -HgA1c 4.4% -diabetic diet Code(s): E11.9 - TYPE 2 DIABETES MELLITUS WITHOUT COMPLICATIONS (3) Functional quadriplegia Assessment/Plan: -PT -Fall precaution Code(s): R53.2 - FUNCTIONAL QUADRIPLEGIA (4) Rasheed Assessment/Plan: -Improved -Follow labs (5) Sacral decubitus ulcer, stage IV Assessment/Plan: -Plastics consult -turn q2h -offloading -CTAP shows large decubitis ulceration with prior coccygeal excision, acute/ chronic osteomyelitis cannot be excluded Code(s): L89.154 - PRESSURE ULCER OF SACRAL REGION, STAGE 4 (6) UTI (urinary tract infection) Assessment/Plan: -Urology consult -CTAP shows pancreatic calcifications suspicious for chronic calcific pancreatitis, cholelithiasis, moderately severe left sided hydronephrosis and hydroureter without obvious obstructin, s/p suprapubic cystostomy tube distal portion of the tbe could be obstructing the L UVJ, marked thickening of urinary bladder and cystitis cannot be excluded, s/p rectosigmoid colostomy with no evidence of of bowel obstruction -UA shows 3+ leuks, 3+ blood, 3+ protein -repeat UC positive for proteus -BC neg -no leukocytosis -afebrile -Cefazolin Code(s): N39.0 - URINARY TRACT INFECTION, SITE NOT SPECIFIED Qualifiers: Hematuria presence: with hematuria (7) Anemia Assessment/Plan: -Hg 9.2 -s/p 1U PRBC transfusion this admission -monitor Hg daily -Anemia profile shows low Iron 22, TIBC 175, Iron Sat 12 -Stool OB ordered -transfuse for Hg <8.0 -Iron Polysaccharide Code(s): D64.9 - ANEMIA, UNSPECIFIED (8) Hydronephrosis Assessment/Plan: -Urology consult -CTAP shows pancreatic calcifications suspicious for chronic calcific pancreatitis, cholelithiasis, moderately severe left sided hydronephrosis and hydroureter without obvious obstructin, s/p suprapubic cystostomy tube distal portion of the tbe could be obstructing the L UVJ, marked thickening of urinary bladder and cystitis cannot be excluded, s/p rectosigmoid colostomy with no evidence of of bowel obstruction -Renal US results persistent hydro--urology follow up noted unable to complete stent--defer to uro Code(s): N13.30 - UNSPECIFIED HYDRONEPHROSIS
[2019-11-17] MEDS: NYSTATIN POWDER 100,000 UNITS/GM - 15 GM TOPICAL POWDER TP SCH ×2 (10:07→22:54)
[2019-11-17] MEDS: PANTOPRAZOLE 40 MG TABLET PO SCH (10:08)
[2019-11-17] MEDS: AMINO ACIDS/PROTEIN HYDROLYS 30 ML LIQUID.PKT PO SCH ×2 (10:08→17:32)
[2019-11-17] MEDS: ENOXAPARIN NA (PORCINE) 30 MG/0.3 ML DISP.SYRIN SQ SCH (10:08)
[2019-11-17] MEDS: IRON POLYSACCHARIDES 150 MG CAPSULE PO SCH (10:10)
[2019-11-17] MEDS: CALCIUM CARBONATE 650 MG TABLET PO SCH (10:10)
[2019-11-17 13:22] LABS: BASO % 0.7 % (0-2.0); EOS % 16.9 % (0-4.5); HEMATOCRIT 28.9 % (35.4-49); HEMOGLOBIN 9.3 GM/dL (11.7-16.9); LYMPH % 20.1 % (8-40); MCH 27.8 pg (25.7-33.7); MCHC 32.2 g/dl (32.0-35.9); MEAN CELL VOLUME 86.2 fl (80-96); MEAN PLT VOLUME 6.8 fl (7.5-11.1); MONO % 9.2 % (3.8-10.2); NEUT % 53.1 % (42.8-82.8); PLATELET COUNT 262 K/MM3 (134-434); RBC 3.36 M/mm3 (4.00-5.60); RDW 15.7 % (11.9-15.9); WHITE BLOOD COUNT 6.9 K/mm3 (4.0-10.0)
--- NOTE | 2019-11-17 14:49 | PN ---
Progress Note (short form) - Note Progress Note: Renal follow up for Acute kidney injury Seen and examined at the bedside sleeping no overnight events no N/V tolerating diet Vital Signs Temperature 98.1 F 11/17/19 07:12 Pulse Rate 80 11/17/19 07:12 Respiratory Rate 20 11/17/19 07:12 Blood Pressure 122/70 11/17/19 07:12 O2 Sat by Pulse Oximetry (%) 99 11/16/19 16:43 NAD RRR CTA soft, NT/ND no CVA tenderness SPC in place no LE edema CBC, BMP 11/17/19 07:20 11/17/19 07:20 Current Medications Amino Acids (Prosource No Carb Liquid Pkt) 30 ml PO BID@0800,1730 [facility] Last Admin: 11/17/19 10:08 Dose: 30 ml Calcium Carbonate (Calcium Carbonate -) 650 mg PO DAILY [facility] Last Admin: 11/17/19 10:10 Dose: 650 mg Cephalexin HCl (Keflex -) 500 mg PO TID [facility] Last Admin: 11/17/19 14:01 Dose: 500 mg Enoxaparin Sodium (Lovenox -) 30 mg SQ DAILY [facility] Last Admin: 11/17/19 10:08 Dose: 30 mg Insulin Aspart (Novolog Vial Sliding Scale -) 1 vial SQ BIDAC [facility]; Protocol Last Admin: 11/17/19 06:16 Dose: Not Given Metoclopramide HCl (Reglan -) 10 mg PO ACHS [facility] Last Admin: 11/17/19 12:21 Dose: 10 mg Nystatin (Nystop Powder -) 1 applic TP BID [facility] Last Admin: 11/17/19 10:07 Dose: 1 applic Pantoprazole Sodium (Protonix -) 40 mg PO DAILY [facility] Last Admin: 11/17/19 10:08 Dose: 40 mg Polysaccharide Iron Complex (Niferex-150 -) 150 mg PO DAILY [facility] Last Admin: 11/17/19 10:10 Dose: 150 mg Simethicone (Mylicon -) 80 mg PO TID [facility] Last Admin: 11/17/19 14:01 Dose: 80 mg 73 year old male with history of quadriplegia, neurogenic bladder with SPC, hypertension, DM, sigmoid volvolus s/p Hartmans with recent hospital admission for SBO requiring TPN presents with abdominal pain and found to have left sided hydronephrosis and MARTINEZ with Cr of 1.5. 1. Acute kidney injury 2. Left sided hydronephrosis with possible SPC obstructing UVJ 3. Anemia with iron deficiency 4. Hx of recent SBO 5. Possible infection/pyuria 6. Hyperkalemia Etiology of kidney injury likely multi-factorial from volume depletion + unilateral obstruction Renal function improved back to baseline s/p percutaneous nephrostomy tube placement, repeat US shows resolution of hydronephrosis urology follow up regarding PCN management antibiotics as per ID, Urine culture grew proteous can d/c IVF low potassium diet Trend renal function daily Thank you Arias Eubanks DO
[2019-11-17] MEDS ORDERED: PT OWN MED DRAWER 7, Y5N ONE (18:16)
[2019-11-17] MEDS: ACETAMINOPHEN 325 MG TABLET (FP) PO PRN (22:52)
[2019-11-18] MEDS: METOCLOPRAMIDE HCL 10 MG TABLET (FP) PO SCH ×4 (06:35→22:53)
[2019-11-18] MEDS: SIMETHICONE 80 MG TAB.CHEW (FP) PO SCH ×3 (06:35→22:53)
[2019-11-18] MEDS: CEPHALEXIN MONOHYDRATE 500 MG CAPSULE (UD) PO SCH ×3 (06:35→22:53)
[2019-11-18] MEDS: INSULIN SLIDING SCALE (NOVOLOG) 1 VIAL SQ SCH ×2 (06:37→17:11)
[2019-11-18] MEDS: AMINO ACIDS/PROTEIN HYDROLYS 30 ML LIQUID.PKT PO SCH ×2 (08:12→17:11)
--- NOTE | 2019-11-18 08:34 | DS ---
Physical Examination Vital Signs: Vital Signs Temperature 98 F 11/18/19 07:01 Pulse Rate 82 11/18/19 07:01 Respiratory Rate 20 11/18/19 07:01 Blood Pressure 117/59 L 11/18/19 07:01 O2 Sat by Pulse Oximetry (%) 100 11/17/19 21:00 Cardiovascular: Yes: Regular Rate and Rhythm Respiratory: Yes: Regular, CTA Bilaterally Gastrointestinal: Yes: Normal Bowel Sounds, Soft Renal/: Yes: Other (nephrostomy) Labs: CBC, BMP 11/17/19 07:20 11/17/19 07:20 Discharge Summary Problems reviewed: Yes Reason For Visit: URINARY TRACT INFECTION Current Active Problems Hydronephrosis (Acute) UTI (urinary tract infection) (Acute) Hospital Course: Problems (1) Abdominal pain Assessment/Plan: -Resolved -CTAP shows pancreatic calcifications suspicious for chronic calcific pancreatitis, cholelithiasis, moderately severe left sided hydronephrosis and hydroureter without obvious obstructin, s/p suprapubic cystostomy tube distal portion of the tbe could be obstructing the L UVJ, marked thickening of urinary bladder and cystitis cannot be excluded, s/p rectosigmoid colostomy with no evidence of of bowel obstruction -Surgery on board, no surgical internevtion needed at present -no leukocytosis -afebrile -ID on board Code(s): R10.9 - UNSPECIFIED ABDOMINAL PAIN Qualifiers: Abdominal location: generalized Qualified Code(s): R10.84 - Generalized abdominal pain (2) Diabetes Assessment/Plan: -BGM ACHS -ISS -HgA1c 4.4% -diabetic diet Code(s): E11.9 - TYPE 2 DIABETES MELLITUS WITHOUT COMPLICATIONS (3) Functional quadriplegia Assessment/Plan: -PT -Fall precaution Code(s): R53.2 - FUNCTIONAL QUADRIPLEGIA (4) Rasheed Assessment/Plan: -Improved -Follow labs (5) Sacral decubitus ulcer, stage IV Assessment/Plan: -Plastics consult -turn q2h -offloading -CTAP shows large decubitis ulceration with prior coccygeal excision, acute/ chronic osteomyelitis cannot be excluded Code(s): L89.154 - PRESSURE ULCER OF SACRAL REGION, STAGE 4 (6) UTI (urinary tract infection) Assessment/Plan: -Urology consult -CTAP shows pancreatic calcifications suspicious for chronic calcific pancreatitis, cholelithiasis, moderately severe left sided hydronephrosis and hydroureter without obvious obstructin, s/p suprapubic cystostomy tube distal portion of the tbe could be obstructing the L UVJ, marked thickening of urinary bladder and cystitis cannot be excluded, s/p rectosigmoid colostomy with no evidence of of bowel obstruction -UA shows 3+ leuks, 3+ blood, 3+ protein -repeat UC positive for proteus -BC neg -no leukocytosis -afebrile Code(s): N39.0 - URINARY TRACT INFECTION, SITE NOT SPECIFIED Qualifiers: Hematuria presence: with hematuria (7) Anemia Assessment/Plan: -Hg 9.2 -s/p 1U PRBC transfusion this admission -monitor Hg daily -Anemia profile shows low Iron 22, TIBC 175, Iron Sat 12 -Stool OB ordered -transfuse for Hg <8.0 -Iron Polysaccharide Code(s): D64.9 - ANEMIA, UNSPECIFIED (8) Hydronephrosis Assessment/Plan: -Urology consult -CTAP shows pancreatic calcifications suspicious for chronic calcific pancreatitis, cholelithiasis, moderately severe left sided hydronephrosis and hydroureter without obvious obstructin, s/p suprapubic cystostomy tube distal portion of the tbe could be obstructing the L UVJ, marked thickening of urinary bladder and cystitis cannot be excluded, s/p rectosigmoid colostomy with no evidence of of bowel obstruction -Renal US results persistent hydro--urology follow up noted unable to complete stent--nephrostomy with blood if clear dc to [facility] Code(s): N13.30 - UNSPECIFIED HYDRONEPHROSIS Condition: Stable - Instructions Diet, Activity, Other Instructions: BMP TWICE A WEEK Disposition: TRANSFER ACUTE CARE/OTHER HOSP - Home Medications Comprehensive Discharge Medication List: Ambulatory Orders Nystatin Powder [Nystop Powder -] 15 gm TP BID 08/31/19 Amino Acids/Protein Hydrolys [Prosource No Carb Liquid Pkt] 30 ml PO BID@0800, 1730 packet 10/24/19 Heparin - 5,000 unit SQ TID vial 10/24/19 Metoclopramide HCl [Reglan -] 10 mg PO ACHS tablet 10/24/19 Pantoprazole Sodium [Protonix -] 40 mg PO DAILY tablet.ec 10/24/19 Simethicone [Mylicon -] 80 mg PO TID tab.chew 10/24/19 Acetaminophen [Tylenol .Regular Strength -] 650 mg PO Q6H PRN tablet 10/25/19 Calcium Carbonate - 650 mg PO DAILY tablet 11/18/19 Cephalexin Monohydrate [Keflex -] 500 mg PO TID capsule 11/18/19 Enoxaparin [Lovenox -] 30 mg SQ DAILY disp.syrin 11/18/19 Iron Polysaccharides [Niferex-150 -] 150 mg PO DAILY capsule 11/18/19
[2019-11-18] MEDS ORDERED: PT OWN MED DRAWER 7, Y5N ONE (09:13)
[2019-11-18] MEDS: IRON POLYSACCHARIDES 150 MG CAPSULE PO SCH (09:15)
[2019-11-18] MEDS: ENOXAPARIN NA (PORCINE) 30 MG/0.3 ML DISP.SYRIN SQ SCH (09:15)
[2019-11-18] MEDS: CALCIUM CARBONATE 650 MG TABLET PO SCH (09:15)
[2019-11-18] MEDS: PANTOPRAZOLE 40 MG TABLET PO SCH (09:15)
[2019-11-18] MEDS: NYSTATIN POWDER 100,000 UNITS/GM - 15 GM TOPICAL POWDER TP SCH ×2 (09:18→22:53)
[2019-11-18 12:25] LABS: BASO % 0.7 % (0-2.0); EOS % 14.7 % (0-4.5); HEMATOCRIT 30.2 % (35.4-49); HEMOGLOBIN 9.4 GM/dL (11.7-16.9); LYMPH % 19.9 % (8-40); MCH 26.9 pg (25.7-33.7); MCHC 31.2 g/dl (32.0-35.9); MEAN CELL VOLUME 86.2 fl (80-96); MEAN PLT VOLUME 6.6 fl (7.5-11.1); MONO % 9.2 % (3.8-10.2); NEUT % 55.5 % (42.8-82.8); PLATELET COUNT 262 K/MM3 (134-434); WHITE BLOOD COUNT 7.4 K/mm3 (4.0-10.0)
[2019-11-18 12:58] LABS: CALCIUM 8.1 mg/dL (8.5-10.1); POTASSIUM 5.2 mmol/L (3.5-5.1)
[2019-11-18] MEDS: SODIUM ZIRCONIUM CYCLOSILICATE (LOKELMA) 5 GM PACKET PO SCH (15:21)
--- NOTE | 2019-11-18 17:07 | PN ---
Progress Note (short form) - Note Progress Note: UROLOGY NOTE Bladder tumor, NB and left hydronephrosis S/P cystoscopy and left PCN doing well Plan: will schedule him for TURBT later
[2019-11-19] MEDS: SIMETHICONE 80 MG TAB.CHEW (FP) PO SCH ×3 (06:38→21:24)
[2019-11-19] MEDS: METOCLOPRAMIDE HCL 10 MG TABLET (FP) PO SCH ×4 (06:38→21:24)
[2019-11-19] MEDS: INSULIN SLIDING SCALE (NOVOLOG) 1 VIAL SQ SCH (06:38)
[2019-11-19] MEDS: CEPHALEXIN MONOHYDRATE 500 MG CAPSULE (UD) PO SCH ×3 (06:39→21:24)
--- NOTE | 2019-11-19 09:53 | PN ---
Progress Note, Physician Chief Complaint: Left hydronephrosis S/P nephrostomy Abd pain RASHEED UTI History of Present Illness: NAD denies any pain at the moment Awaiting discharge - Current Medication List Current Medications: Active Medications Acetaminophen (Tylenol -) 650 mg PO Q6H PRN PRN Reason: PAIN LEVEL 6-10 Last Admin: 11/17/19 22:52 Dose: 650 mg Amino Acids (Prosource No Carb Liquid Pkt) 30 ml PO BID@0800,1730 [facility] Last Admin: 11/18/19 17:11 Dose: 30 ml Calcium Carbonate (Calcium Carbonate -) 650 mg PO DAILY [facility] Last Admin: 11/18/19 09:15 Dose: 650 mg Cephalexin HCl (Keflex -) 500 mg PO TID [facility] Last Admin: 11/19/19 06:39 Dose: 500 mg Enoxaparin Sodium (Lovenox -) 30 mg SQ DAILY [facility] Last Admin: 11/18/19 09:15 Dose: 30 mg Insulin Aspart (Novolog Vial Sliding Scale -) 1 vial SQ BIDAC [facility]; Protocol Last Admin: 11/19/19 06:38 Dose: Not Given Metoclopramide HCl (Reglan -) 10 mg PO ACHS [facility] Last Admin: 11/19/19 06:38 Dose: 10 mg Nystatin (Nystop Powder -) 1 applic TP BID [facility] Last Admin: 11/18/19 22:53 Dose: 1 applic Pantoprazole Sodium (Protonix -) 40 mg PO DAILY [facility] Last Admin: 11/18/19 09:15 Dose: 40 mg Polysaccharide Iron Complex (Niferex-150 -) 150 mg PO DAILY [facility] Last Admin: 11/18/19 09:15 Dose: 150 mg Simethicone (Mylicon -) 80 mg PO TID [facility] Last Admin: 11/19/19 06:38 Dose: 80 mg Sodium Zirconium Cyclosilicate (Lokelma) 5 gm PO DAILY [facility] Last Admin: 11/18/19 15:21 Dose: 5 gm - Objective Vital Signs: Vital Signs Temperature 97.4 F L 11/19/19 06:00 Pulse Rate 75 11/19/19 06:00 Respiratory Rate 18 11/19/19 06:00 Blood Pressure 138/64 11/19/19 06:00 O2 Sat by Pulse Oximetry (%) 100 11/18/19 21:00 Constitutional: Yes: No Distress, Calm, Cachectic Cardiovascular: Yes: Regular Rate and Rhythm Respiratory: Yes: Regular Gastrointestinal: Yes: Normal Bowel Sounds, Soft, Other (left colostomy + nephrostomy) Genitourinary: Yes: Other (supra-pubic catheter) Musculoskeletal: Yes: Muscle Weakness Extremities: Yes: WNL Edema: No Peripheral Pulses WNL: Yes Neurological: Yes: Alert, Oriented Psychiatric: Yes: Alert, Oriented Labs: CBC, BMP 11/18/19 11:16 11/18/19 11:16 INR, PTT INR 1.06 (0.83-1.09) 11/16/19 12:14 Problem List - Problems (1) Severe malnutrition Assessment/Plan: -on prosource BID Problems reviewed: Yes Code(s): E43 - UNSPECIFIED SEVERE PROTEIN-CALORIE MALNUTRITION (2) Functional quadriplegia Problems reviewed: Yes Code(s): R53.2 - FUNCTIONAL QUADRIPLEGIA Assessment/Plan (1) Abdominal pain Assessment/Plan: -Resolved -CTAP shows pancreatic calcifications suspicious for chronic calcific pancreatitis, cholelithiasis, moderately severe left sided hydronephrosis and hydroureter without obvious obstructin, s/p suprapubic cystostomy tube distal portion of the tbe could be obstructing the L UVJ, marked thickening of urinary bladder and cystitis cannot be excluded, s/p rectosigmoid colostomy with no evidence of of bowel obstruction -Surgery on board, no surgical internevtion needed at present -no leukocytosis -afebrile -Cefazolin---switched to PO cephalexin -ID on board Code(s): R10.9 - UNSPECIFIED ABDOMINAL PAIN Qualifiers: Abdominal location: generalized Qualified Code(s): R10.84 - Generalized abdominal pain (2) Diabetes Assessment/Plan: -HgA1c 4.4% -D/C BGM ACHS -D/C ISS -Continue dietary modification Code(s): E11.9 - TYPE 2 DIABETES MELLITUS WITHOUT COMPLICATIONS (3) Functional quadriplegia Assessment/Plan: -PT -Fall precaution Code(s): R53.2 - FUNCTIONAL QUADRIPLEGIA (4) Rasheed Assessment/Plan: -Improved -Follow labs (5) Sacral decubitus ulcer, stage IV Assessment/Plan: -Plastics consult- no surgical intervention at this time, was also seen last admission -turn q2h -offloading -CTAP shows large decubitis ulceration with prior coccygeal excision, acute/ chronic osteomyelitis cannot be excluded Code(s): L89.154 - PRESSURE ULCER OF SACRAL REGION, STAGE 4 (6) UTI (urinary tract infection) Assessment/Plan: -Urology consult -CTAPas above -repeat UC positive for proteus -Also seen by ID -BC neg -no leukocytosis -afebrile -Finished IV abx -Cephalexin PO Code(s): N39.0 - URINARY TRACT INFECTION, SITE NOT SPECIFIED Qualifiers: Hematuria presence: with hematuria (7) Anemia Assessment/Plan: -chronic -s/p 1U PRBC transfusion this admission -H/H stable -Previously EUGENIA -transfuse if Hg<7.0 to avoid fluid overload -Iron Polysaccharide Code(s): D64.9 - ANEMIA, UNSPECIFIED (8) Hydronephrosis Assessment/Plan: -Urology consult -CTAP as above -Renal U/S shows improvement in left hydronephrosis -Seen by Urology- to plan for o/p TURP Code(s): N13.30 - UNSPECIFIED HYDRONEPHROSIS
[2019-11-19] MEDS ORDERED: PT OWN MED DRAWER 7, Y5N ONE (10:05)
[2019-11-19] MEDS: AMINO ACIDS/PROTEIN HYDROLYS 30 ML LIQUID.PKT PO SCH ×2 (10:25→18:02)
[2019-11-19] MEDS: CALCIUM CARBONATE 650 MG TABLET PO SCH (10:26)
[2019-11-19] MEDS: SODIUM ZIRCONIUM CYCLOSILICATE (LOKELMA) 5 GM PACKET PO SCH (10:26)
[2019-11-19] MEDS: IRON POLYSACCHARIDES 150 MG CAPSULE PO SCH (10:27)
[2019-11-19] MEDS: ENOXAPARIN NA (PORCINE) 30 MG/0.3 ML DISP.SYRIN SQ SCH (10:27)
[2019-11-19] MEDS: PANTOPRAZOLE 40 MG TABLET PO SCH (10:27)
[2019-11-19] MEDS: NYSTATIN POWDER 100,000 UNITS/GM - 15 GM TOPICAL POWDER TP SCH ×2 (10:28→21:25)
[2019-11-19] MEDS ORDERED: SODIUM ZIRCONIUM CYCLOSILICATE (LOKELMA) 5 GM PACKET PO ONE ×2 (17:28)
--- NOTE | 2019-11-19 17:31 | PN ---
Progress Note, Physician History of Present Illness: Pt seen and examined at bedside. He appears comfortable. - Current Medication List Current Medications: Active Medications Acetaminophen (Tylenol -) 650 mg PO Q6H PRN PRN Reason: PAIN LEVEL 6-10 Last Admin: 11/17/19 22:52 Dose: 650 mg Amino Acids (Prosource No Carb Liquid Pkt) 30 ml PO BID@0800,1730 [facility] Last Admin: 11/19/19 10:25 Dose: 30 ml Calcium Carbonate (Calcium Carbonate -) 650 mg PO DAILY [facility] Last Admin: 11/19/19 10:26 Dose: 650 mg Cephalexin HCl (Keflex -) 500 mg PO TID [facility] Last Admin: 11/19/19 14:37 Dose: 500 mg Enoxaparin Sodium (Lovenox -) 30 mg SQ DAILY [facility] Last Admin: 11/19/19 10:27 Dose: 30 mg Metoclopramide HCl (Reglan -) 10 mg PO ACHS [facility] Last Admin: 11/19/19 10:27 Dose: 10 mg Nystatin (Nystop Powder -) 1 applic TP BID [facility] Last Admin: 11/19/19 10:28 Dose: 1 applic Pantoprazole Sodium (Protonix -) 40 mg PO DAILY [facility] Last Admin: 11/19/19 10:27 Dose: 40 mg Polysaccharide Iron Complex (Niferex-150 -) 150 mg PO DAILY [facility] Last Admin: 11/19/19 10:27 Dose: 150 mg Simethicone (Mylicon -) 80 mg PO TID [facility] Last Admin: 11/19/19 14:37 Dose: 80 mg Sodium Zirconium Cyclosilicate (Lokelma) 5 gm PO DAILY [facility] Last Admin: 11/19/19 10:26 Dose: 5 gm Sodium Zirconium Cyclosilicate (Lokelma) 10 gm PO ONCE ONE Stop: 11/19/19 17:29 - Objective Vital Signs: Vital Signs Temperature 97.9 F 11/19/19 14:29 Pulse Rate 68 11/19/19 14:29 Respiratory Rate 18 11/19/19 14:29 Blood Pressure 125/67 11/19/19 14:29 O2 Sat by Pulse Oximetry (%) 100 11/19/19 09:00 Constitutional: Yes: Calm Eyes: Yes: Conjunctiva Clear HENT: Yes: Atraumatic Neck: Yes: Supple Cardiovascular: Yes: S1, S2 Respiratory: Yes: CTA Bilaterally Gastrointestinal: Yes: Soft Genitourinary: Yes: Rowe Present Edema: No Neurological: Yes: Oriented Psychiatric: Yes: Oriented Labs: CBC, BMP 11/18/19 11:16 11/18/19 11:16 INR, PTT INR 1.06 (0.83-1.09) 11/16/19 12:14 Assessment/Plan Current Medications Generic Name Dose Route Start Last Admin Trade Name Freq PRN Reason Stop Dose Admin Acetaminophen 650 mg 11/17/19 22:36 11/17/19 22:52 Tylenol - PO 650 mg Q6H PRN Administration PAIN LEVEL 6-10 Amino Acids 30 ml 11/15/19 17:30 11/19/19 10:25 Prosource No Carb Liquid Pkt PO 30 ml BID@0800,1730 [facility] Administration Calcium Carbonate 650 mg 11/16/19 10:00 11/19/19 10:26 Calcium Carbonate - PO 650 mg DAILY [facility] Administration Cephalexin HCl 500 mg 11/15/19 14:00 11/19/19 14:37 Keflex - PO 500 mg TID [facility] Administration Enoxaparin Sodium 30 mg 11/16/19 10:00 11/19/19 10:27 Lovenox - SQ 30 mg DAILY [facility] Administration Metoclopramide HCl 10 mg 11/15/19 11:00 11/19/19 10:27 Reglan - PO 10 mg ACHS [facility] Administration Nystatin 1 applic 11/15/19 22:00 11/19/19 10:28 Nystop Powder - TP 1 applic BID [facility] Administration Pantoprazole Sodium 40 mg 11/16/19 10:00 11/19/19 10:27 Protonix - PO 40 mg DAILY [facility] Administration Polysaccharide Iron Complex 150 mg 11/16/19 10:00 11/19/19 10:27 Niferex-150 - PO 150 mg DAILY [facility] Administration Simethicone 80 mg 11/15/19 14:00 11/19/19 14:37 Mylicon - PO 80 mg TID [facility] Administration Sodium Zirconium Cyclosilicate 5 gm 11/18/19 14:45 11/19/19 10:26 Lokelma PO 5 gm DAILY [facility] Administration Sodium Zirconium Cyclosilicate 5 gm 11/19/19 17:28 Lokelma PO 11/19/19 17:29 ONCE ONE 1. Acute kidney injury 2. Left sided hydronephrosis with possible SPC obstructing UVJ 3. Anemia with iron deficiency 4. Hx of recent SBO 5. Possible infection/pyuria 6. Hyperkalemia Plan - cont lokelma, will give another dose - repeat labs in am - bp stable - renal function stable
[2019-11-20] MEDS ORDERED: MELATONIN 5 MG TABLETS PO ONE (01:35)
[2019-11-20] MEDS: SIMETHICONE 80 MG TAB.CHEW (FP) PO SCH ×3 (06:55→22:37)
[2019-11-20] MEDS: METOCLOPRAMIDE HCL 10 MG TABLET (FP) PO SCH ×4 (06:55→22:37)
[2019-11-20] MEDS: CEPHALEXIN MONOHYDRATE 500 MG CAPSULE (UD) PO SCH ×3 (06:55→22:37)
[2019-11-20 08:15] LABS: ALBUMIN 1.8 g/dl (3.4-5.0); BILIRUBIN,TOTAL 0.2 mg/dL (0.2-1); BLOOD UREA NITROGEN 29.5 mg/dL (7-18); CALCIUM 8.3 mg/dL (8.5-10.1); POTASSIUM 4.8 mmol/L (3.5-5.1); TOT PROT 5.3 g/dl (6.4-8.2)
--- NOTE | 2019-11-20 09:15 | PN ---
Progress Note, Physician Chief Complaint: Left hydronephrosis S/P nephrostomy Abd pain RASHEED UTI History of Present Illness: NAD denies any pain at the moment Awaiting discharge - Current Medication List Current Medications: Active Medications Acetaminophen (Tylenol -) 650 mg PO Q6H PRN PRN Reason: PAIN LEVEL 6-10 Last Admin: 11/17/19 22:52 Dose: 650 mg Amino Acids (Prosource No Carb Liquid Pkt) 30 ml PO BID@0800,1730 [facility] Last Admin: 11/19/19 18:02 Dose: 30 ml Calcium Carbonate (Calcium Carbonate -) 650 mg PO DAILY [facility] Last Admin: 11/19/19 10:26 Dose: 650 mg Cephalexin HCl (Keflex -) 500 mg PO TID [facility] Last Admin: 11/20/19 06:55 Dose: 500 mg Enoxaparin Sodium (Lovenox -) 30 mg SQ DAILY [facility] Last Admin: 11/19/19 10:27 Dose: 30 mg Metoclopramide HCl (Reglan -) 10 mg PO ACHS [facility] Last Admin: 11/20/19 06:55 Dose: 10 mg Nystatin (Nystop Powder -) 1 applic TP BID [facility] Last Admin: 11/19/19 21:25 Dose: 1 applic Pantoprazole Sodium (Protonix -) 40 mg PO DAILY [facility] Last Admin: 11/19/19 10:27 Dose: 40 mg Polysaccharide Iron Complex (Niferex-150 -) 150 mg PO DAILY [facility] Last Admin: 11/19/19 10:27 Dose: 150 mg Simethicone (Mylicon -) 80 mg PO TID [facility] Last Admin: 11/20/19 06:55 Dose: 80 mg Sodium Zirconium Cyclosilicate (Lokelma) 5 gm PO DAILY [facility] Last Admin: 11/19/19 10:26 Dose: 5 gm - Objective Vital Signs: Vital Signs Temperature 97.6 F 11/20/19 06:00 Pulse Rate 84 11/20/19 06:00 Respiratory Rate 20 11/20/19 06:00 Blood Pressure 116/55 L 11/20/19 06:00 O2 Sat by Pulse Oximetry (%) 100 11/19/19 20:17 Constitutional: Yes: No Distress, Calm, Cachectic Cardiovascular: Yes: Regular Rate and Rhythm Respiratory: Yes: Regular Gastrointestinal: Yes: Normal Bowel Sounds, Soft, Other (LLQ colostomy+ nephrostomy) Genitourinary: Yes: Other (suprapubic cath) Musculoskeletal: Yes: Muscle Weakness Extremities: Yes: WNL Edema: No Peripheral Pulses WNL: Yes Neurological: Yes: Alert, Oriented Psychiatric: Yes: Alert, Oriented Labs: CBC, BMP 11/18/19 11:16 11/20/19 06:50 INR, PTT INR 1.06 (0.83-1.09) 11/16/19 12:14 Problem List - Problems (1) Severe malnutrition Assessment/Plan: -on prosource BID Problems reviewed: Yes Code(s): E43 - UNSPECIFIED SEVERE PROTEIN-CALORIE MALNUTRITION (2) Functional quadriplegia Problems reviewed: Yes Code(s): R53.2 - FUNCTIONAL QUADRIPLEGIA Assessment/Plan (1) Abdominal pain Assessment/Plan: -Resolved -CTAP shows pancreatic calcifications suspicious for chronic calcific pancreatitis, cholelithiasis, moderately severe left sided hydronephrosis and hydroureter without obvious obstructin, s/p suprapubic cystostomy tube distal portion of the tbe could be obstructing the L UVJ, marked thickening of urinary bladder and cystitis cannot be excluded, s/p rectosigmoid colostomy with no evidence of of bowel obstruction -Surgery on board, no surgical internevtion needed at present -no leukocytosis -afebrile -Cefazolin---switched to PO cephalexin -ID on board Code(s): R10.9 - UNSPECIFIED ABDOMINAL PAIN Qualifiers: Abdominal location: generalized Qualified Code(s): R10.84 - Generalized abdominal pain (2) Diabetes Assessment/Plan: -HgA1c 4.4% -D/C BGM ACHS -D/C ISS -Continue dietary modification Code(s): E11.9 - TYPE 2 DIABETES MELLITUS WITHOUT COMPLICATIONS (3) Functional quadriplegia Assessment/Plan: -PT -Fall precaution Code(s): R53.2 - FUNCTIONAL QUADRIPLEGIA (4) Rasheed Assessment/Plan: -Improved -Follow labs (5) Sacral decubitus ulcer, stage IV Assessment/Plan: -Plastics consult- no surgical intervention at this time, was also seen last admission -turn q2h -offloading -CTAP shows large decubitis ulceration with prior coccygeal excision, acute/ chronic osteomyelitis cannot be excluded Code(s): L89.154 - PRESSURE ULCER OF SACRAL REGION, STAGE 4 (6) UTI (urinary tract infection) Assessment/Plan: -Urology consult -CTAPas above -repeat UC positive for proteus -Also seen by ID -BC neg -no leukocytosis -afebrile -Finished IV abx -Cephalexin PO- 2 more days Code(s): N39.0 - URINARY TRACT INFECTION, SITE NOT SPECIFIED Qualifiers: Hematuria presence: with hematuria (7) Anemia Assessment/Plan: -chronic -s/p 1U PRBC transfusion this admission -H/H stable -Previously EUGENIA -transfuse if Hg<7.0 to avoid fluid overload -Iron Polysaccharide Code(s): D64.9 - ANEMIA, UNSPECIFIED (8) Hydronephrosis Assessment/Plan: -Urology consult -CTAP as above -Renal U/S shows improvement in left hydronephrosis -Seen by Urology- to plan for o/p TURP Code(s): N13.30 - UNSPECIFIED HYDRONEPHROSIS D/C home in AM Pt needs Rx for 1. Wound Vac @ 125 mm Hg to change dressing Q72H 2.Hospital Bed-has it at home 3. Soft low pressure mattress (awaiting auth from [place]) 4. Pt also need f/u with Urology for possible TURBT Spoke to daughter Keyla in detail, plan discussed with CLINICAL ENGINEERING DIRECTOR as well
[2019-11-20] MEDS ORDERED: PT OWN MED DRAWER 7, Y5N ONE (10:20)
[2019-11-20] MEDS: PANTOPRAZOLE 40 MG TABLET PO SCH (10:36)
[2019-11-20] MEDS: AMINO ACIDS/PROTEIN HYDROLYS 30 ML LIQUID.PKT PO SCH ×2 (10:36→17:47)
[2019-11-20] MEDS: ENOXAPARIN NA (PORCINE) 30 MG/0.3 ML DISP.SYRIN SQ SCH (10:36)
[2019-11-20] MEDS: IRON POLYSACCHARIDES 150 MG CAPSULE PO SCH (10:36)
[2019-11-20] MEDS: CALCIUM CARBONATE 650 MG TABLET PO SCH (10:37)
[2019-11-20] MEDS: NYSTATIN POWDER 100,000 UNITS/GM - 15 GM TOPICAL POWDER TP SCH ×2 (10:37→22:38)
[2019-11-20] MEDS: SODIUM ZIRCONIUM CYCLOSILICATE (LOKELMA) 5 GM PACKET PO SCH (10:37)
--- NOTE | 2019-11-20 18:50 | PN ---
Progress Note, Physician History of Present Illness: Pt seen and examined at bedside. He is awake and appears comfortable. - Current Medication List Current Medications: Active Medications Acetaminophen (Tylenol -) 650 mg PO Q6H PRN PRN Reason: PAIN LEVEL 6-10 Last Admin: 11/17/19 22:52 Dose: 650 mg Amino Acids (Prosource No Carb Liquid Pkt) 30 ml PO BID@0800,1730 [facility] Last Admin: 11/20/19 17:47 Dose: 30 ml Calcium Carbonate (Calcium Carbonate -) 650 mg PO DAILY [facility] Last Admin: 11/20/19 10:37 Dose: 650 mg Cephalexin HCl (Keflex -) 500 mg PO TID [facility] Last Admin: 11/20/19 17:47 Dose: 500 mg Enoxaparin Sodium (Lovenox -) 30 mg SQ DAILY [facility] Last Admin: 11/20/19 10:36 Dose: 30 mg Metoclopramide HCl (Reglan -) 10 mg PO ACHS [facility] Last Admin: 11/20/19 17:47 Dose: 10 mg Nystatin (Nystop Powder -) 1 applic TP BID [facility] Last Admin: 11/20/19 10:37 Dose: 1 applic Pantoprazole Sodium (Protonix -) 40 mg PO DAILY [facility] Last Admin: 11/20/19 10:36 Dose: 40 mg Polysaccharide Iron Complex (Niferex-150 -) 150 mg PO DAILY [facility] Last Admin: 11/20/19 10:36 Dose: 150 mg Simethicone (Mylicon -) 80 mg PO TID [facility] Last Admin: 11/20/19 17:47 Dose: 80 mg Sodium Zirconium Cyclosilicate (Lokelma) 5 gm PO DAILY [facility] Last Admin: 11/20/19 10:37 Dose: 5 gm - Objective Vital Signs: Vital Signs Temperature 98.1 F 11/20/19 14:43 Pulse Rate 97 H 11/20/19 14:43 Respiratory Rate 20 11/20/19 14:43 Blood Pressure 110/56 L 11/20/19 14:43 O2 Sat by Pulse Oximetry (%) 100 11/20/19 09:00 Constitutional: Yes: Calm Eyes: Yes: Conjunctiva Clear HENT: Yes: Atraumatic Cardiovascular: Yes: S1, S2 Respiratory: Yes: CTA Bilaterally Gastrointestinal: Yes: Soft Genitourinary: Yes: Rowe Present Musculoskeletal: Yes: Muscle Weakness Edema: No Neurological: Yes: Pre-Existing Deficit Labs: CBC, BMP 11/18/19 11:16 11/20/19 06:50 INR, PTT INR 1.06 (0.83-1.09) 11/16/19 12:14 Assessment/Plan Current Medications Generic Name Dose Route Start Last Admin Trade Name Freq PRN Reason Stop Dose Admin Acetaminophen 650 mg 11/17/19 22:36 11/17/19 22:52 Tylenol - PO 650 mg Q6H PRN Administration PAIN LEVEL 6-10 Amino Acids 30 ml 11/15/19 17:30 11/20/19 17:47 Prosource No Carb Liquid Pkt PO 30 ml BID@0800,1730 [facility] Administration Calcium Carbonate 650 mg 11/16/19 10:00 11/20/19 10:37 Calcium Carbonate - PO 650 mg DAILY [facility] Administration Cephalexin HCl 500 mg 11/15/19 14:00 11/20/19 17:47 Keflex - PO 500 mg TID [facility] Administration Enoxaparin Sodium 30 mg 11/16/19 10:00 11/20/19 10:36 Lovenox - SQ 30 mg DAILY [facility] Administration Metoclopramide HCl 10 mg 11/15/19 11:00 11/20/19 17:47 Reglan - PO 10 mg ACHS [facility] Administration Nystatin 1 applic 11/15/19 22:00 11/20/19 10:37 Nystop Powder - TP 1 applic BID [facility] Administration Pantoprazole Sodium 40 mg 11/16/19 10:00 11/20/19 10:36 Protonix - PO 40 mg DAILY [facility] Administration Polysaccharide Iron Complex 150 mg 11/16/19 10:00 11/20/19 10:36 Niferex-150 - PO 150 mg DAILY [facility] Administration Simethicone 80 mg 11/15/19 14:00 11/20/19 17:47 Mylicon - PO 80 mg TID [facility] Administration Sodium Zirconium Cyclosilicate 5 gm 11/18/19 14:45 11/20/19 10:37 Lokelma PO 5 gm DAILY [facility] Administration 1. Acute kidney injury 2. Left sided hydronephrosis with possible SPC obstructing UVJ 3. Anemia with iron deficiency 4. Hx of recent SBO 5. Possible infection/pyuria 6. Hyperkalemia Plan - potassium improved - renal function stable - monitor lytes - renal function stable
[2019-11-21] MEDS: CEPHALEXIN MONOHYDRATE 500 MG CAPSULE (UD) PO SCH ×3 (07:12→22:07)
[2019-11-21] MEDS: METOCLOPRAMIDE HCL 10 MG TABLET (FP) PO SCH ×4 (07:12→22:07)
[2019-11-21] MEDS: SIMETHICONE 80 MG TAB.CHEW (FP) PO SCH ×3 (07:12→22:07)
[2019-11-21] MEDS ORDERED: PT OWN MED DRAWER 7, Y5N ONE (09:49)
[2019-11-21] MEDS: SODIUM ZIRCONIUM CYCLOSILICATE (LOKELMA) 5 GM PACKET PO SCH (09:57)
[2019-11-21] MEDS: AMINO ACIDS/PROTEIN HYDROLYS 30 ML LIQUID.PKT PO SCH ×2 (09:57→17:35)
[2019-11-21] MEDS: ENOXAPARIN NA (PORCINE) 30 MG/0.3 ML DISP.SYRIN SQ SCH (09:57)
[2019-11-21] MEDS: CALCIUM CARBONATE 650 MG TABLET PO SCH (09:57)
[2019-11-21] MEDS: IRON POLYSACCHARIDES 150 MG CAPSULE PO SCH (09:57)
[2019-11-21] MEDS: PANTOPRAZOLE 40 MG TABLET PO SCH (09:57)
[2019-11-21] MEDS: NYSTATIN POWDER 100,000 UNITS/GM - 15 GM TOPICAL POWDER TP SCH ×2 (09:58→22:39)
--- NOTE | 2019-11-21 10:30 | PN ---
Progress Note, Physician Chief Complaint: UTI Anemia Abdominal Pain History of Present Illness: Previous notes and events reviewed awake and alert NAD denies complaints of chest pain or SOB no acute events overnight no leukocytosis afebrile pending d/c home pending authorization of supplies needed at home - Current Medication List Current Medications: Active Medications Acetaminophen (Tylenol -) 650 mg PO Q6H PRN PRN Reason: PAIN LEVEL 6-10 Last Admin: 11/17/19 22:52 Dose: 650 mg Amino Acids (Prosource No Carb Liquid Pkt) 30 ml PO BID@0800,1730 [facility] Last Admin: 11/21/19 09:57 Dose: 30 ml Calcium Carbonate (Calcium Carbonate -) 650 mg PO DAILY [facility] Last Admin: 11/21/19 09:57 Dose: 650 mg Cephalexin HCl (Keflex -) 500 mg PO TID [facility] Last Admin: 11/21/19 07:12 Dose: 500 mg Enoxaparin Sodium (Lovenox -) 30 mg SQ DAILY [facility] Last Admin: 11/21/19 09:57 Dose: 30 mg Metoclopramide HCl (Reglan -) 10 mg PO ACHS [facility] Last Admin: 11/21/19 07:12 Dose: 10 mg Nystatin (Nystop Powder -) 1 applic TP BID [facility] Last Admin: 11/21/19 09:58 Dose: 1 applic Pantoprazole Sodium (Protonix -) 40 mg PO DAILY [facility] Last Admin: 11/21/19 09:57 Dose: 40 mg Polysaccharide Iron Complex (Niferex-150 -) 150 mg PO DAILY [facility] Last Admin: 11/21/19 09:57 Dose: 150 mg Simethicone (Mylicon -) 80 mg PO TID [facility] Last Admin: 11/21/19 07:12 Dose: 80 mg Sodium Zirconium Cyclosilicate (Lokelma) 5 gm PO DAILY [facility] Last Admin: 11/21/19 09:57 Dose: 5 gm - Objective Vital Signs: Vital Signs Temperature 97.8 F 11/21/19 06:47 Pulse Rate 72 11/21/19 06:47 Respiratory Rate 20 11/21/19 06:47 Blood Pressure 116/56 L 11/21/19 06:47 O2 Sat by Pulse Oximetry (%) 100 11/20/19 21:00 Constitutional: Yes: No Distress, Calm Eyes: Yes: Conjunctiva Clear HENT: Yes: Atraumatic Cardiovascular: Yes: Regular Rate and Rhythm Respiratory: Yes: Regular, Diminished, On Nasal O2 Gastrointestinal: Yes: Normal Bowel Sounds, Soft, Other (colostomy) Genitourinary: Yes: Other (L nephrostomy) Musculoskeletal: Yes: Muscle Weakness Extremities: Yes: WNL Edema: No Integumentary: Yes: Pressure Ulcer Neurological: Yes: Alert, Pre-Existing Deficit Psychiatric: Yes: Alert Labs: CBC, BMP 11/18/19 11:16 11/20/19 06:50 INR, PTT INR 1.06 (0.83-1.09) 11/16/19 12:14 Microbiology 11/08/19 17:00 Blood - Peripheral Venous Blood Culture - Final NO GROWTH AFTER 5 DAYS INCUBATION 11/08/19 17:00 Blood - Peripheral Venous Blood Culture - Final NO GROWTH AFTER 5 DAYS INCUBATION 11/11/19 10:50 Urine - Urine Suprapubic Urine Culture - Final Proteus Mirabilis 11/08/19 18:12 Urine - Urine - Catheterized Urine Culture - Final Contaminated: Please Repeat Problem List - Problems (1) Abdominal pain Assessment/Plan: -CTAP shows pancreatic calcifications suspicious for chronic calcific pancreatitis, cholelithiasis, moderately severe left sided hydronephrosis and hydroureter without obvious obstructin, s/p suprapubic cystostomy tube distal portion of the tbe could be obstructing the L UVJ, marked thickening of urinary bladder and cystitis cannot be excluded, s/p rectosigmoid colostomy with no evidence of of bowel obstruction -Surgery on board, no surgical internevtion needed at present -no leukocytosis -afebrile -Cefazolin switched to Cephalexin -ID on board Code(s): R10.9 - UNSPECIFIED ABDOMINAL PAIN Qualifiers: Abdominal location: generalized Qualified Code(s): R10.84 - Generalized abdominal pain (2) Diabetes Assessment/Plan: -HgA1c 4.4% -diabetic diet Code(s): E11.9 - TYPE 2 DIABETES MELLITUS WITHOUT COMPLICATIONS (3) Functional quadriplegia Assessment/Plan: -PT -Fall precaution Code(s): R53.2 - FUNCTIONAL QUADRIPLEGIA (4) HTN (hypertension) Assessment/Plan: -low Na diet -monitor BP Code(s): I10 - ESSENTIAL (PRIMARY) HYPERTENSION (5) Sacral decubitus ulcer, stage IV Assessment/Plan: -Plastics on board and recommend no surgical intervention at this time -turn q2h -offloading -CTAP shows large decubitis ulceration with prior coccygeal excision, acute/ chronic osteomyelitis cannot be excluded -wound vac connected Code(s): L89.154 - PRESSURE ULCER OF SACRAL REGION, STAGE 4 (6) UTI (urinary tract infection) Assessment/Plan: -Urology consult -CTAP shows pancreatic calcifications suspicious for chronic calcific pancreatitis, cholelithiasis, moderately severe left sided hydronephrosis and hydroureter without obvious obstructin, s/p suprapubic cystostomy tube distal portion of the tbe could be obstructing the L UVJ, marked thickening of urinary bladder and cystitis cannot be excluded, s/p rectosigmoid colostomy with no evidence of of bowel obstruction -UA shows 3+ leuks, 3+ blood, 3+ protein -repeat UC positive for proteus -BC neg -no leukocytosis -afebrile -Cefazolin switched to Cephalexin Code(s): N39.0 - URINARY TRACT INFECTION, SITE NOT SPECIFIED Qualifiers: Urinary tract infection type: site unspecified Hematuria presence: with hematuria Qualified Code(s): N39.0 - Urinary tract infection, site not specified; R31.9 - Hematuria, unspecified (7) Anemia Assessment/Plan: -Hg 9.4 -s/p 1U PRBC transfusion this admission -monitor Hg daily -Anemia profile shows low Iron 22, TIBC 175, Iron Sat 12 -Stool OB ordered -transfuse for Hg <8.0 -Iron Polysaccharide Code(s): D64.9 - ANEMIA, UNSPECIFIED (8) Hydronephrosis Assessment/Plan: -Urology consult -CTAP shows pancreatic calcifications suspicious for chronic calcific pancreatitis, cholelithiasis, moderately severe left sided hydronephrosis and hydroureter without obvious obstructin, s/p suprapubic cystostomy tube distal portion of the tbe could be obstructing the L UVJ, marked thickening of urinary bladder and cystitis cannot be excluded, s/p rectosigmoid colostomy with no evidence of of bowel obstruction -Renal US showed moderate to marked left renal hydronephrosis -s/p placement L nephrostomy tube -patient will need follow up with Urology as outpatient for TURP when medically stable Code(s): N13.30 - UNSPECIFIED HYDRONEPHROSIS Assessment/Plan see problem list dvt ppx patient is pending discharge home, patient will need wound vac with dressing change q72h, hospital bed with soft low pressure mattress (awaiting authorization from insurance company)
--- NOTE | 2019-11-21 15:36 | PN ---
Progress Note (short form) - Note Progress Note: Renal follow up for Acute kidney injury Seen and examined at the bedside no acute complaints no sob, cp, fever or chills tolerating oral diet making urine via soriano and nephrostomy tube Vital Signs Temperature 97.5 F L 11/21/19 14:29 Pulse Rate 71 11/21/19 14:29 Respiratory Rate 20 11/21/19 14:29 Blood Pressure 109/52 L 11/21/19 14:29 O2 Sat by Pulse Oximetry (%) 100 11/21/19 09:00 Intake & Output 11/18/19 11/19/19 11/20/19 11/21/19 23:59 23:59 23:59 23:59 Intake Total 400 1500 Output Total 2080 1500 2380 900 Balance -2080 -1100 -880 -900 NAD RRR CTA soft, NT/ND no CVA tenderness SPC in place no LE edema CBC, BMP 11/18/19 11:16 11/20/19 06:50 Current Medications Acetaminophen (Tylenol -) 650 mg PO Q6H PRN PRN Reason: PAIN LEVEL 6-10 Last Admin: 11/17/19 22:52 Dose: 650 mg Amino Acids (Prosource No Carb Liquid Pkt) 30 ml PO BID@0800,1730 [facility] Last Admin: 11/21/19 09:57 Dose: 30 ml Calcium Carbonate (Calcium Carbonate -) 650 mg PO DAILY [facility] Last Admin: 11/21/19 09:57 Dose: 650 mg Cephalexin HCl (Keflex -) 500 mg PO TID [facility] Last Admin: 11/21/19 14:12 Dose: 500 mg Enoxaparin Sodium (Lovenox -) 30 mg SQ DAILY [facility] Last Admin: 11/21/19 09:57 Dose: 30 mg Metoclopramide HCl (Reglan -) 10 mg PO ACHS [facility] Last Admin: 11/21/19 14:13 Dose: 10 mg Nystatin (Nystop Powder -) 1 applic TP BID [facility] Last Admin: 11/21/19 09:58 Dose: 1 applic Pantoprazole Sodium (Protonix -) 40 mg PO DAILY [facility] Last Admin: 11/21/19 09:57 Dose: 40 mg Polysaccharide Iron Complex (Niferex-150 -) 150 mg PO DAILY [facility] Last Admin: 11/21/19 09:57 Dose: 150 mg Simethicone (Mylicon -) 80 mg PO TID [facility] Last Admin: 11/21/19 14:13 Dose: 80 mg Sodium Zirconium Cyclosilicate (Lokelma) 5 gm PO DAILY [facility] Last Admin: 11/21/19 09:57 Dose: 5 gm 73 year old male with history of quadriplegia, neurogenic bladder with SPC, hypertension, DM, sigmoid volvolus s/p Hart[place] with recent hospital admission for SBO requiring TPN presents with abdominal pain and found to have left sided hydronephrosis and MARTINEZ with Cr of 1.5. 1. Acute kidney injury 2. Left sided hydronephrosis with possible SPC obstructing UVJ 3. Anemia with iron deficiency 4. Hx of recent SBO 5. Possible infection/pyuria 6. Hyperkalemia Renal function is improved and stable s/p percutaneous nephrostomy tube placement, repeat US shows resolution of hydronephrosis urology follow up regarding PCN management antibiotics as per ID, Urine culture grew proteous s/p Nayana over the weekend for hyperkalemia, however he was not on low potassium diet diet is now adjusted, will d/c nayana tend K daily Thank you Arias Eubanks DO
[2019-11-22] MEDS: PANTOPRAZOLE 40 MG TABLET PO SCH ×2 (06:48→09:55)
[2019-11-22] MEDS: CEPHALEXIN MONOHYDRATE 500 MG CAPSULE (UD) PO SCH (06:48)
[2019-11-22] MEDS: ACETAMINOPHEN 325 MG TABLET (FP) PO PRN ×2 (06:49→19:43)
[2019-11-22] MEDS: METOCLOPRAMIDE HCL 10 MG TABLET (FP) PO SCH ×4 (06:50→21:00)
[2019-11-22] MEDS: SIMETHICONE 80 MG TAB.CHEW (FP) PO SCH ×3 (06:50→21:00)
[2019-11-22 08:38] LABS: BLOOD UREA NITROGEN 35.5 mg/dL (7-18); CALCIUM 8.2 mg/dL (8.5-10.1); MAGNESIUM 1.7 mg/dL (1.8-2.4); PHOSPHOROUS 3.6 mg/dL (2.5-4.9); POTASSIUM 4.5 mmol/L (3.5-5.1)
[2019-11-22] MEDS ORDERED: PT OWN MED DRAWER 7, Y5N ONE (09:48)
[2019-11-22] MEDS: IRON POLYSACCHARIDES 150 MG CAPSULE PO SCH (09:55)
[2019-11-22] MEDS: AMINO ACIDS/PROTEIN HYDROLYS 30 ML LIQUID.PKT PO SCH ×2 (09:55→18:24)
[2019-11-22] MEDS: CALCIUM CARBONATE 650 MG TABLET PO SCH (09:55)
[2019-11-22] MEDS: ENOXAPARIN NA (PORCINE) 30 MG/0.3 ML DISP.SYRIN SQ SCH (09:55)
[2019-11-22] MEDS: NYSTATIN POWDER 100,000 UNITS/GM - 15 GM TOPICAL POWDER TP SCH ×2 (09:56→21:02)
--- NOTE | 2019-11-22 10:44 | PN ---
Progress Note, Physician Chief Complaint: Left hydronephrosis S/P nephrostomy Abd pain MARTINEZ UTI History of Present Illness: NAD denies any pain at the moment Awaiting discharge - Current Medication List Current Medications: Active Medications Acetaminophen (Tylenol -) 650 mg PO Q6H PRN PRN Reason: PAIN LEVEL 6-10 Last Admin: 11/22/19 06:49 Dose: 650 mg Amino Acids (Prosource No Carb Liquid Pkt) 30 ml PO BID@0800,1730 [facility] Last Admin: 11/22/19 09:55 Dose: 30 ml Calcium Carbonate (Calcium Carbonate -) 650 mg PO DAILY [facility] Last Admin: 11/22/19 09:55 Dose: 650 mg Cephalexin HCl (Keflex -) 500 mg PO TID [facility] Last Admin: 11/22/19 06:48 Dose: 500 mg Enoxaparin Sodium (Lovenox -) 30 mg SQ DAILY [facility] Last Admin: 11/22/19 09:55 Dose: 30 mg Metoclopramide HCl (Reglan -) 10 mg PO ACHS [facility] Last Admin: 11/22/19 06:50 Dose: 10 mg Nystatin (Nystop Powder -) 1 applic TP BID [facility] Last Admin: 11/22/19 09:56 Dose: 1 applic Pantoprazole Sodium (Protonix -) 40 mg PO DAILY [facility] Last Admin: 11/22/19 09:55 Dose: Not Given Polysaccharide Iron Complex (Niferex-150 -) 150 mg PO DAILY [facility] Last Admin: 11/22/19 09:55 Dose: 150 mg Simethicone (Mylicon -) 80 mg PO TID [facility] Last Admin: 11/22/19 06:50 Dose: 80 mg - Objective Vital Signs: Vital Signs Temperature 97.8 F 11/22/19 07:03 Pulse Rate 76 11/22/19 07:03 Respiratory Rate 20 11/22/19 07:03 Blood Pressure 118/58 L 11/22/19 07:03 O2 Sat by Pulse Oximetry (%) 100 11/21/19 19:56 Constitutional: Yes: No Distress, Calm, Cachectic Cardiovascular: Yes: Regular Rate and Rhythm Respiratory: Yes: Regular Gastrointestinal: Yes: Normal Bowel Sounds, Soft, Other (LLQ colostomy) Genitourinary: Yes: WNL, Other (supra pubic catheter+ left nephrostomy) Musculoskeletal: Yes: WNL Extremities: Yes: WNL Edema: No Peripheral Pulses WNL: Yes Neurological: Yes: Alert, Oriented Psychiatric: Yes: Alert, Oriented Labs: CBC, BMP 11/18/19 11:16 11/22/19 06:40 INR, PTT INR 1.06 (0.83-1.09) 11/16/19 12:14 Problem List - Problems (1) Severe malnutrition Assessment/Plan: -on prosource BID Problems reviewed: Yes Code(s): E43 - UNSPECIFIED SEVERE PROTEIN-CALORIE MALNUTRITION (2) Functional quadriplegia Problems reviewed: Yes Code(s): R53.2 - FUNCTIONAL QUADRIPLEGIA Assessment/Plan (1) Abdominal pain Assessment/Plan: -Resolved -CTAP shows pancreatic calcifications suspicious for chronic calcific pancreatitis, cholelithiasis, moderately severe left sided hydronephrosis and hydroureter without obvious obstructin, s/p suprapubic cystostomy tube distal portion of the tbe could be obstructing the L UVJ, marked thickening of urinary bladder and cystitis cannot be excluded, s/p rectosigmoid colostomy with no evidence of of bowel obstruction -Surgery on board, no surgical intervention needed at present -no leukocytosis -afebrile -Finished cephalexin -ID on board Code(s): R10.9 - UNSPECIFIED ABDOMINAL PAIN Qualifiers: Abdominal location: generalized Qualified Code(s): R10.84 - Generalized abdominal pain (2) Diabetes Assessment/Plan: -HgA1c 4.4% -D/C BGM ACHS -D/C ISS -Continue dietary modification Code(s): E11.9 - TYPE 2 DIABETES MELLITUS WITHOUT COMPLICATIONS (3) Functional quadriplegia Assessment/Plan: -PT -Fall precaution Code(s): R53.2 - FUNCTIONAL QUADRIPLEGIA (4) Martinez Assessment/Plan: -Improved -Follow labs (5) Sacral decubitus ulcer, stage IV Assessment/Plan: -Plastics consult- no surgical intervention at this time, was also seen last admission -turn q2h -offloading -CTAP shows large decubitis ulceration with prior coccygeal excision, acute/ chronic osteomyelitis cannot be excluded Code(s): L89.154 - PRESSURE ULCER OF SACRAL REGION, STAGE 4 (6) UTI (urinary tract infection) Assessment/Plan: -Urology consult -CTAPas above -repeat UC positive for proteus -Also seen by ID -BC neg -no leukocytosis -afebrile -Finished abx -Cephalexin PO- 2 more days Code(s): N39.0 - URINARY TRACT INFECTION, SITE NOT SPECIFIED Qualifiers: Hematuria presence: with hematuria (7) Anemia Assessment/Plan: -chronic -s/p 1U PRBC transfusion this admission -H/H stable -Previously EUGENIA -transfuse if Hg<7.0 to avoid fluid overload -Iron Polysaccharide Code(s): D64.9 - ANEMIA, UNSPECIFIED (8) Hydronephrosis Assessment/Plan: -Urology consult -CTAP as above -Renal U/S shows improvement in left hydronephrosis -Seen by Urology- to plan for o/p TURP Code(s): N13.30 - UNSPECIFIED HYDRONEPHROSIS D/C home in AM Pt needs Rx for 1. Wound Vac @ 125 mm Hg to change dressing Q72H 2.Hospital Bed-has it at home 3. Soft low pressure mattress (awaiting auth from [place]) 4. Pt also need f/u with Urology for possible TURBT Spoke to daughter Keyla in detail
--- NOTE | 2019-11-22 13:56 | PN ---
Progress Note (short form) - Note Progress Note: Renal follow up for Acute kidney injury Seen and examined at the bedside no acute complaints no sob, cp, fever or chills Vital Signs Temperature 97.8 F 11/22/19 07:03 Pulse Rate 76 11/22/19 07:03 Respiratory Rate 20 11/22/19 07:03 Blood Pressure 118/58 L 11/22/19 07:03 O2 Sat by Pulse Oximetry (%) 100 11/21/19 19:56 Intake & Output 11/19/19 11/20/19 11/21/19 11/22/19 23:59 23:59 23:59 23:59 Intake Total 400 1500 Output Total 1500 2380 1200 500 Balance -1100 -880 -1200 -500 NAD RRR CTA soft, NT/ND no CVA tenderness SPC in place no LE edema CBC, BMP 11/18/19 11:16 11/22/19 06:40 Current Medications Acetaminophen (Tylenol -) 650 mg PO Q6H PRN PRN Reason: PAIN LEVEL 6-10 Last Admin: 11/22/19 06:49 Dose: 650 mg Amino Acids (Prosource No Carb Liquid Pkt) 30 ml PO BID@0800,1730 [facility] Last Admin: 11/22/19 09:55 Dose: 30 ml Calcium Carbonate (Calcium Carbonate -) 650 mg PO DAILY [facility] Last Admin: 11/22/19 09:55 Dose: 650 mg Cephalexin HCl (Keflex -) 500 mg PO TID [facility] Last Admin: 11/22/19 06:48 Dose: 500 mg Enoxaparin Sodium (Lovenox -) 30 mg SQ DAILY [facility] Last Admin: 11/22/19 09:55 Dose: 30 mg Metoclopramide HCl (Reglan -) 10 mg PO ACHS [facility] Last Admin: 11/22/19 11:59 Dose: 10 mg Nystatin (Nystop Powder -) 1 applic TP BID [facility] Last Admin: 11/22/19 09:56 Dose: 1 applic Pantoprazole Sodium (Protonix -) 40 mg PO DAILY [facility] Last Admin: 11/22/19 09:55 Dose: Not Given Polysaccharide Iron Complex (Niferex-150 -) 150 mg PO DAILY [facility] Last Admin: 11/22/19 09:55 Dose: 150 mg Simethicone (Mylicon -) 80 mg PO TID [facility] Last Admin: 11/22/19 06:50 Dose: 80 mg 73 year old male with history of quadriplegia, neurogenic bladder with SPC, hypertension, DM, sigmoid volvolus s/p Hartmans with recent hospital admission for SBO requiring TPN presents with abdominal pain and found to have left sided hydronephrosis and MARTINEZ with Cr of 1.5. 1. Acute kidney injury 2. Left sided hydronephrosis with possible SPC obstructing UVJ 3. Anemia with iron deficiency 4. Hx of recent SBO 5. Possible infection/pyuria 6. Hyperkalemia Renal function is improved and stable s/p percutaneous nephrostomy tube placement, repeat US shows resolution of hydronephrosis antibiotics as per ID, Urine culture grew proteous potassium now within normal limits will sign off case at this time, please call with any questions or concerns. Thank you Arias Eubanks DO
[2019-11-23] MEDS: SIMETHICONE 80 MG TAB.CHEW (FP) PO SCH ×3 (06:34→21:11)
[2019-11-23] MEDS: METOCLOPRAMIDE HCL 10 MG TABLET (FP) PO SCH ×4 (06:34→21:12)
--- NOTE | 2019-11-23 10:45 | PN ---
Progress Note, Physician Chief Complaint: Left hydronephrosis S/P nephrostomy Abd pain RASHEED UTI History of Present Illness: NAD denies any pain at the moment Awaiting discharge - Current Medication List Current Medications: Active Medications Acetaminophen (Tylenol -) 650 mg PO Q6H PRN PRN Reason: PAIN LEVEL 6-10 Last Admin: 11/22/19 19:43 Dose: 650 mg Amino Acids (Prosource No Carb Liquid Pkt) 30 ml PO BID@0800,1730 [facility] Last Admin: 11/22/19 18:24 Dose: 30 ml Calcium Carbonate (Calcium Carbonate -) 650 mg PO DAILY [facility] Last Admin: 11/22/19 09:55 Dose: 650 mg Metoclopramide HCl (Reglan -) 10 mg PO ACHS [facility] Last Admin: 11/23/19 06:34 Dose: 10 mg Nystatin (Nystop Powder -) 1 applic TP BID [facility] Last Admin: 11/22/19 21:02 Dose: 1 applic Pantoprazole Sodium (Protonix -) 40 mg PO DAILY [facility] Last Admin: 11/22/19 09:55 Dose: Not Given Polysaccharide Iron Complex (Niferex-150 -) 150 mg PO DAILY [facility] Last Admin: 11/22/19 09:55 Dose: 150 mg Simethicone (Mylicon -) 80 mg PO TID [facility] Last Admin: 11/23/19 06:34 Dose: 80 mg - Objective Vital Signs: Vital Signs Temperature 97.5 F L 11/23/19 07:03 Pulse Rate 73 11/23/19 07:03 Respiratory Rate 20 11/23/19 07:03 Blood Pressure 120/50 L 11/23/19 07:03 O2 Sat by Pulse Oximetry (%) 98 11/22/19 21:00 Constitutional: Yes: No Distress, Calm, Cachectic Cardiovascular: Yes: Regular Rate and Rhythm Respiratory: Yes: Regular Gastrointestinal: Yes: WNL, Other (LLQ colostomy) Genitourinary: Yes: Other (supra pubic catheter, left nephrostomy) Musculoskeletal: Yes: WNL Extremities: Yes: WNL Edema: No Peripheral Pulses WNL: Yes Neurological: Yes: Alert, Oriented Psychiatric: Yes: Alert, Oriented Labs: CBC, BMP 11/18/19 11:16 11/22/19 06:40 INR, PTT INR 1.06 (0.83-1.09) 11/16/19 12:14 Problem List - Problems (1) Severe malnutrition Assessment/Plan: -on prosource BID Problems reviewed: Yes Code(s): E43 - UNSPECIFIED SEVERE PROTEIN-CALORIE MALNUTRITION (2) Functional quadriplegia Problems reviewed: Yes Code(s): R53.2 - FUNCTIONAL QUADRIPLEGIA Assessment/Plan (1) Abdominal pain Assessment/Plan: -Resolved -CTAP shows pancreatic calcifications suspicious for chronic calcific pancreatitis, cholelithiasis, moderately severe left sided hydronephrosis and hydroureter without obvious obstructin, s/p suprapubic cystostomy tube distal portion of the tbe could be obstructing the L UVJ, marked thickening of urinary bladder and cystitis cannot be excluded, s/p rectosigmoid colostomy with no evidence of of bowel obstruction -Surgery on board, no surgical intervention needed at present -no leukocytosis -afebrile -Finished cephalexin -ID on board Code(s): R10.9 - UNSPECIFIED ABDOMINAL PAIN Qualifiers: Abdominal location: generalized Qualified Code(s): R10.84 - Generalized abdominal pain (2) Diabetes Assessment/Plan: -HgA1c 4.4% -D/C BGM ACHS -D/C ISS -Continue dietary modification Code(s): E11.9 - TYPE 2 DIABETES MELLITUS WITHOUT COMPLICATIONS (3) Functional quadriplegia Assessment/Plan: -PT -Fall precaution Code(s): R53.2 - FUNCTIONAL QUADRIPLEGIA (4) Rasheed Assessment/Plan: -Improved -Follow labs (5) Sacral decubitus ulcer, stage IV Assessment/Plan: -Plastics consult- no surgical intervention at this time, was also seen last admission -turn q2h -offloading -CTAP shows large decubitis ulceration with prior coccygeal excision, acute/ chronic osteomyelitis cannot be excluded Code(s): L89.154 - PRESSURE ULCER OF SACRAL REGION, STAGE 4 (6) UTI (urinary tract infection) Assessment/Plan: -Urology consult -CTAPas above -repeat UC positive for proteus -Also seen by ID -BC neg -no leukocytosis -afebrile -Finished abx -Cephalexin PO- 2 more days Code(s): N39.0 - URINARY TRACT INFECTION, SITE NOT SPECIFIED Qualifiers: Hematuria presence: with hematuria (7) Anemia Assessment/Plan: -chronic -s/p 1U PRBC transfusion this admission -H/H stable -Previously EUGENIA -transfuse if Hg<7.0 to avoid fluid overload -Iron Polysaccharide Code(s): D64.9 - ANEMIA, UNSPECIFIED (8) Hydronephrosis Assessment/Plan: -Urology consult -CTAP as above -Renal U/S shows improvement in left hydronephrosis -Seen by Urology- to plan for o/p TURP Code(s): N13.30 - UNSPECIFIED HYDRONEPHROSIS D/C home in AM Pt needs Rx for 1. Wound Vac @ 125 mm Hg to change dressing Q72H 2.Hospital Bed-has it at home 3. Soft low pressure mattress (awaiting auth from [employer]) 4. Pt also need f/u with Urology for possible TURBT Spoke to daughter Keyla in detail
[2019-11-23] MEDS ORDERED: PT OWN MED DRAWER 7, Y5N ONE (10:55)
[2019-11-23] MEDS: PANTOPRAZOLE 40 MG TABLET PO SCH (11:15)
[2019-11-23] MEDS: AMINO ACIDS/PROTEIN HYDROLYS 30 ML LIQUID.PKT PO SCH ×2 (11:15→17:49)
[2019-11-23] MEDS: IRON POLYSACCHARIDES 150 MG CAPSULE PO SCH (11:15)
[2019-11-23] MEDS: ACETAMINOPHEN 325 MG TABLET (FP) PO PRN ×2 (11:15→21:12)
[2019-11-23] MEDS: CALCIUM CARBONATE 650 MG TABLET PO SCH (11:16)
[2019-11-23] MEDS: NYSTATIN POWDER 100,000 UNITS/GM - 15 GM TOPICAL POWDER TP SCH ×2 (11:18→21:14)
[2019-11-24] MEDS: METOCLOPRAMIDE HCL 10 MG TABLET (FP) PO SCH ×4 (06:15→22:46)
[2019-11-24] MEDS: SIMETHICONE 80 MG TAB.CHEW (FP) PO SCH ×3 (06:15→22:46)
[2019-11-24] MEDS: NYSTATIN POWDER 100,000 UNITS/GM - 15 GM TOPICAL POWDER TP SCH ×2 (09:04→22:46)
[2019-11-24] MEDS: PANTOPRAZOLE 40 MG TABLET PO SCH (09:05)
[2019-11-24] MEDS: IRON POLYSACCHARIDES 150 MG CAPSULE PO SCH (09:06)
[2019-11-24] MEDS: AMINO ACIDS/PROTEIN HYDROLYS 30 ML LIQUID.PKT PO SCH ×2 (09:06→18:37)
[2019-11-24] MEDS: CALCIUM CARBONATE 650 MG TABLET PO SCH (09:06)
--- NOTE | 2019-11-24 09:25 | PN ---
Progress Note, Physician Chief Complaint: UTI Anemia Abdominal Pain History of Present Illness: Previous notes and events reviewed awake and alert NAD denies complaints of chest pain or SOB patient complain of bladder pain noted to have swelling to RLQ that is TTP pending d/c home pending re-instation of home care services - Current Medication List Current Medications: Active Medications Acetaminophen (Tylenol -) 650 mg PO Q6H PRN PRN Reason: PAIN LEVEL 6-10 Last Admin: 11/23/19 21:12 Dose: 650 mg Amino Acids (Prosource No Carb Liquid Pkt) 30 ml PO BID@0800,1730 [facility] Last Admin: 11/24/19 09:06 Dose: 30 ml Calcium Carbonate (Calcium Carbonate -) 650 mg PO DAILY [facility] Last Admin: 11/24/19 09:06 Dose: 650 mg Metoclopramide HCl (Reglan -) 10 mg PO ACHS [facility] Last Admin: 11/24/19 06:15 Dose: 10 mg Nystatin (Nystop Powder -) 1 applic TP BID [facility] Last Admin: 11/24/19 09:04 Dose: 1 applic Pantoprazole Sodium (Protonix -) 40 mg PO DAILY [facility] Last Admin: 11/24/19 09:05 Dose: 40 mg Polysaccharide Iron Complex (Niferex-150 -) 150 mg PO DAILY [facility] Last Admin: 11/24/19 09:06 Dose: 150 mg Simethicone (Mylicon -) 80 mg PO TID [facility] Last Admin: 11/24/19 06:15 Dose: 80 mg - Objective Vital Signs: Vital Signs Temperature 97.6 F 11/24/19 07:36 Pulse Rate 74 11/24/19 07:36 Respiratory Rate 20 11/24/19 07:36 Blood Pressure 115/54 L 11/24/19 07:36 O2 Sat by Pulse Oximetry (%) 100 11/23/19 19:23 Constitutional: Yes: No Distress, Calm Eyes: Yes: Conjunctiva Clear HENT: Yes: Atraumatic Cardiovascular: Yes: Regular Rate and Rhythm Respiratory: Yes: Regular, Diminished, On Nasal O2 Gastrointestinal: Yes: Normal Bowel Sounds, Soft, Other (swelling RLQ) Genitourinary: Yes: Other (suprapubic catheter, L nephrostomy tube) Musculoskeletal: Yes: Muscle Weakness Extremities: Yes: WNL Wound/Incision: Yes: Dressing Dry and Intact Neurological: Yes: Alert, Pre-Existing Deficit Psychiatric: Yes: Alert Labs: CBC, BMP 11/18/19 11:16 11/22/19 06:40 INR, PTT INR 1.06 (0.83-1.09) 11/16/19 12:14 Microbiology 11/08/19 17:00 Blood - Peripheral Venous Blood Culture - Final NO GROWTH AFTER 5 DAYS INCUBATION 11/08/19 17:00 Blood - Peripheral Venous Blood Culture - Final NO GROWTH AFTER 5 DAYS INCUBATION 11/11/19 10:50 Urine - Urine Suprapubic Urine Culture - Final Proteus Mirabilis 11/08/19 18:12 Urine - Urine - Catheterized Urine Culture - Final Contaminated: Please Repeat Problem List - Problems (1) Abdominal pain Assessment/Plan: -CTAP shows pancreatic calcifications suspicious for chronic calcific pancreatitis, cholelithiasis, moderately severe left sided hydronephrosis and hydroureter without obvious obstructin, s/p suprapubic cystostomy tube distal portion of the tbe could be obstructing the L UVJ, marked thickening of urinary bladder and cystitis cannot be excluded, s/p rectosigmoid colostomy with no evidence of of bowel obstruction -Surgery on board, no surgical internevtion needed at present -no leukocytosis -afebrile -ID on board -Abdominal US for swelling RLQ Code(s): R10.9 - UNSPECIFIED ABDOMINAL PAIN Qualifiers: Abdominal location: generalized Qualified Code(s): R10.84 - Generalized abdominal pain (2) Diabetes Assessment/Plan: -HgA1c 4.4% -diabetic diet Code(s): E11.9 - TYPE 2 DIABETES MELLITUS WITHOUT COMPLICATIONS (3) Functional quadriplegia Assessment/Plan: -PT -Fall precaution Code(s): R53.2 - FUNCTIONAL QUADRIPLEGIA (4) HTN (hypertension) Assessment/Plan: -low Na diet -monitor BP Code(s): I10 - ESSENTIAL (PRIMARY) HYPERTENSION (5) Sacral decubitus ulcer, stage IV Assessment/Plan: -Plastics on board and recommend no surgical intervention at this time -turn q2h -offloading -CTAP shows large decubitis ulceration with prior coccygeal excision, acute/ chronic osteomyelitis cannot be excluded -wound vac connected Code(s): L89.154 - PRESSURE ULCER OF SACRAL REGION, STAGE 4 (6) UTI (urinary tract infection) Assessment/Plan: -Urology consult -CTAP shows pancreatic calcifications suspicious for chronic calcific pancreatitis, cholelithiasis, moderately severe left sided hydronephrosis and hydroureter without obvious obstructin, s/p suprapubic cystostomy tube distal portion of the tbe could be obstructing the L UVJ, marked thickening of urinary bladder and cystitis cannot be excluded, s/p rectosigmoid colostomy with no evidence of of bowel obstruction -UA shows 3+ leuks, 3+ blood, 3+ protein -repeat UC positive for proteus -BC neg -no leukocytosis -afebrile -Cefazolin switched to Cephalexin and completed course of ABT Code(s): N39.0 - URINARY TRACT INFECTION, SITE NOT SPECIFIED Qualifiers: Urinary tract infection type: site unspecified Hematuria presence: with hematuria Qualified Code(s): N39.0 - Urinary tract infection, site not specified; R31.9 - Hematuria, unspecified (7) Anemia Assessment/Plan: -Hg 9.4 -s/p 1U PRBC transfusion this admission -monitor Hg daily -Anemia profile shows low Iron 22, TIBC 175, Iron Sat 12 -Stool OB ordered -transfuse for Hg <8.0 -Iron Polysaccharide Code(s): D64.9 - ANEMIA, UNSPECIFIED (8) Hydronephrosis Assessment/Plan: -Urology consult -CTAP shows pancreatic calcifications suspicious for chronic calcific pancreatitis, cholelithiasis, moderately severe left sided hydronephrosis and hydroureter without obvious obstructin, s/p suprapubic cystostomy tube distal portion of the tbe could be obstructing the L UVJ, marked thickening of urinary bladder and cystitis cannot be excluded, s/p rectosigmoid colostomy with no evidence of of bowel obstruction -Renal US showed moderate to marked left renal hydronephrosis -s/p placement L nephrostomy tube -patient will need follow up with Urology as outpatient for TURP when medically stable Code(s): N13.30 - UNSPECIFIED HYDRONEPHROSIS Assessment/Plan see problem list dvt ppx patient is pending discharge home, patient will need wound vac with dressing change q72h, hospital bed with soft low pressure mattress (awaiting authorization from insurance company)
[2019-11-25] MEDS: SIMETHICONE 80 MG TAB.CHEW (FP) PO SCH ×2 (06:44→13:11)
[2019-11-25] MEDS: METOCLOPRAMIDE HCL 10 MG TABLET (FP) PO SCH ×2 (06:44→13:12)
[2019-11-25] MEDS ORDERED: PT OWN MED DRAWER 7, Y5N ONE (09:15)
--- NOTE | 2019-11-25 10:01 | PN ---
Progress Note (short form) - Note Progress Note: CHRONICALLY ILL 74 Y/O MALE WITH DIABETES, SACRAL ULCER, FUNCTIONAL QUADRIPLEGIA , BEDRIDDEN, WITH ABDOMINAL DISEASE OF GALLBLADDER, KIDNEYS, URINARY BLADDER AND NOT A CANDIDATE FOR SURGERY DUE TO HIGH RISK. PATIENT CAN NOT GO UNDER ANESTHESIA THE RISK OUTWEIGHS THE BENEFIT. PATIENT NEEDS WHO NEEDS FULL LONG-TERM CARE HAS A POOR QUALITY OF LIFE UNABLE TO AMBULATE AND CARE FOR HIMSELF. PALLIATIVE CARE HAS BEEN CALLED MULTIPLE TIMES TO DISCUSS ADVANCE DIRECTIVES WITH DAUGHTER AND HOSPICE CARE WAS RECOMMENDED. HOWEVER PATIENT IS UNABLE TO MAKE HIS OWN DECISIONS AND HIS DAUGHTER WISHES TO HAVE FULL CODE STATUS AND WE ARE HONORING THEIR WISHES. PATIENT CAN BE DISCHARGED WITH BODY CARE MANAGER AID. PLEASE HAVE YOUR PRIMARY DOCTOR ARRANGE A HOME VISIT. I WILL D/W CEPHALOMETRIC ANALYST.
--- NOTE | 2019-11-25 10:25 | PN ---
Progress Note (short form) - Note Progress Note: ADDENDUM: I SPOKE WITH THE PATIENT'S DAUGHTER PEEWEE AND DISCUSSED ADVANCED DIRECTIVES AND SHE HAS OFFICIALLY MAD HER DAD DNR/DNI WITH [employer] A WITNESS. HOME HOSPICE ALSO WAS AGREED UPON BY PEEWEE AND REFERRAL WAS SENT.
[2019-11-25] MEDS: ACETAMINOPHEN 325 MG TABLET (FP) PO PRN (10:30)
[2019-11-25] MEDS: CALCIUM CARBONATE 650 MG TABLET PO SCH (10:30)
[2019-11-25] MEDS: IRON POLYSACCHARIDES 150 MG CAPSULE PO SCH (10:30)
[2019-11-25] MEDS: PANTOPRAZOLE 40 MG TABLET PO SCH (10:30)
[2019-11-25] MEDS: AMINO ACIDS/PROTEIN HYDROLYS 30 ML LIQUID.PKT PO SCH (10:30)
[2019-11-25] MEDS: NYSTATIN POWDER 100,000 UNITS/GM - 15 GM TOPICAL POWDER TP SCH (10:32)
[2019-11-25 11:56] VITALS: BP 140/70; PULSE 82; TEMP 99
== END 2019-11-25 14:38 | disposition home or self-care (01) | DRG 689 ==
LOC: JER 17:03 → JERBED 21:45 → J8W 11-10 19:38
PROVIDERS: ADMIT Family Medicine; ATTEND Family Medicine
PROC: 30233N1 Transfusion of Nonautologous Red Blood Cells into Peripheral Vein, Percutaneous Approach (ICD-10-PCS; 2019-11-09)
PROC: 0TJB8ZZ Inspection of Bladder, Via Natural or Artificial Opening Endoscopic (ICD-10-PCS; principal; 2019-11-15 14:00)
PROC: 0T9130Z Drainage of Left Kidney with Drainage Device, Percutaneous Approach (ICD-10-PCS; 2019-11-16)
DX: N13.6 Pyonephrosis (principal); L89.154 Pressure ulcer of sacral region, stage 4; R53.2 Functional quadriplegia; E43 Unspecified severe protein-calorie malnutrition; R64 Cachexia; R10.9 Unspecified abdominal pain; N17.9 Acute kidney failure, unspecified; N39.0 Urinary tract infection, site not specified; N31.9 Neuromuscular dysfunction of bladder, unspecified; E11.9 Type 2 diabetes mellitus without complications; I10 Essential (primary) hypertension; D49.4 Neoplasm of unspecified behavior of bladder; Z68.20 Body mass index [BMI] 20.0-20.9, adult; D50.9 Iron deficiency anemia, unspecified; E87.5 Hyperkalemia; E83.51 Hypocalcemia
CPT/HCPCS: 36415; 36430; 36511; 50432; 74176-TC; 76000-TC-FY; 76098-TC-FY; 76775-TC; 76856-TC; 76998-TC; 80048; 80053; 81003; 82728; 82962; 83036; 83540; 83550; 83735; 84100; 85025; 85027; 85610; 86850; 86900; 86901; 86922; 87040; 87086; 87186; 87899; 93005; 93010; 94760; 99285-25; A4358; C1729; C1769; J0131; J7030; P9038; P9058

== ENCOUNTER 2020-03-12 15:38 | Inpatient (IN) | payer MEDICARE, OTHER ==
[2020-03-12 17:41] LABS: URINE APPEARANCE CLOUDY; URINE BILIRUBIN NEGATIVE (NEGATIVE); URINE COLOR YELLOW; URINE GLUCOSE (UA) NEGATIVE (NEGATIVE); URINE KETONE NEGATIVE (NEGATIVE); URINE LEUK ESTERASE 3+ (NEGATIVE); URINE NITRITE NEGATIVE (NEGATIVE); URINE PROTEIN 3+ (NEGATIVE)
[2020-03-12] MEDS ORDERED: MEROPENEM 1 GM in DEXTROSE 5%-WATER 100 ML IVPB ONE (17:43)
[2020-03-12 18:05] LABS: EPI CELLS 1 /uL (0-25.1); HYALINE CASTS 1.66 /uL (0-3.1); URINE BACTERIA 665.3 /uL (0-1359); URINE RBC 588.6 /uL (0-23.9)
[2020-03-12 18:10] LABS: INR 1.06 (0.83-1.09); PROTHROMBIN TIME (PATIENT) 12.5 SEC (9.7-13.0)
[2020-03-12 18:12] LABS: BASO % 1.3 % (0-2.0); EOS % 26.4 % (0-4.5); LYMPH % 24.7 % (8-40); MCH 25.5 pg (25.7-33.7); MCHC 32.5 g/dl (32.0-35.9); MEAN CELL VOLUME 78.5 fl (80-96); MONO % 8.2 % (3.8-10.2); NEUT % 39.4 % (42.8-82.8); PLATELET COUNT 284 K/MM3 (134-434); RBC 3.94 M/mm3 (4.00-5.60); RDW 21.7 % (11.9-15.9); WHITE BLOOD COUNT 6.1 K/mm3 (4.0-10.0)
[2020-03-12 18:23] LABS: ALBUMIN 2.3 g/dl (3.4-5.0); BILIRUBIN,TOTAL 0.3 mg/dL (0.2-1); BLOOD UREA NITROGEN 23.6 mg/dL (7-18); CALCIUM 8.5 mg/dL (8.5-10.1); CREATININE 1.3 mg/dL (0.55-1.3); POTASSIUM 4.5 mmol/L (3.5-5.1); TOT PROT 6.3 g/dl (6.4-8.2)
[2020-03-12] MEDS ORDERED: SODIUM CHLORIDE 0.9% 500 ML INFUS.BAG IV ONE (18:52)
[2020-03-12] MEDS ORDERED: MEROPENEM 1 GM VIAL (RESTRICTED TO ID) IVPB ONE (18:57)
[2020-03-12 19:11] LABS: ANISOCYTOSIS 1+; PLATELET ESTIMATE ADEQUATE
[2020-03-12] MEDS: HEPARIN NA (PORCINE) 5,000 UNITS/ML 1ML VIAL SQ SCH (22:12)
[2020-03-13 07:43] LABS: BASO % 1.1 % (0-2.0); EOS % 32.8 % (0-4.5); HEMATOCRIT 30.2 % (35.4-49); HEMOGLOBIN 9.8 GM/dL (11.7-16.9); LYMPH % 22.8 % (8-40); MCH 25.6 pg (25.7-33.7); MCHC 32.5 g/dl (32.0-35.9); MEAN CELL VOLUME 78.6 fl (80-96); MEAN PLT VOLUME 6.5 fl (7.5-11.1); MONO % 6.8 % (3.8-10.2); NEUT % 36.5 % (42.8-82.8); PLATELET COUNT 286 K/MM3 (134-434); RBC 3.84 M/mm3 (4.00-5.60); RDW 21.8 % (11.9-15.9); WHITE BLOOD COUNT 5.9 K/mm3 (4.0-10.0)
[2020-03-13 08:09] LABS: POTASSIUM 4.2 mmol/L (3.5-5.1)
[2020-03-13 08:20] LABS: ALBUMIN 2.2 g/dl (3.4-5.0); BILIRUBIN,TOTAL 0.7 mg/dL (0.2-1); BLOOD UREA NITROGEN 21.2 mg/dL (7-18); CALCIUM 7.5 mg/dL (8.5-10.1); TOT PROT 6.1 g/dl (6.4-8.2)
[2020-03-13 09:03] LABS: ANISOCYTOSIS 2+; MACROCYTOSIS 1+; PLATELET ESTIMATE NORMAL
[2020-03-13] MEDS: HEPARIN NA (PORCINE) 5,000 UNITS/ML 1ML VIAL SQ SCH ×2 (09:09→21:48)
[2020-03-13] MEDS: AMINO ACIDS/PROTEIN HYDROLYS 30 ML LIQUID.PKT PO SCH ×2 (09:10→17:08)
[2020-03-13] MEDS ORDERED: DEXTROSE 5%-WATER 100 ML IVPB ONE ×2 (13:32→17:00)
[2020-03-13] MEDS ORDERED: MEROPENEM 1 GM VIAL (RESTRICTED TO ID) IVPB ONE ×2 (13:32→17:00)
[2020-03-13] MEDS: MEROPENEM 1 GM in DEXTROSE 5%-WATER 100 ML IVPB SCH ×2 (13:34→17:08)
[2020-03-14] MEDS ORDERED: DEXTROSE 5%-WATER 100 ML IVPB ONE ×2 (00:59→09:58)
[2020-03-14] MEDS ORDERED: MEROPENEM 1 GM VIAL (RESTRICTED TO ID) IVPB ONE ×2 (00:59→09:57)
[2020-03-14] MEDS: MEROPENEM 1 GM in DEXTROSE 5%-WATER 100 ML IVPB SCH ×3 (01:23→17:43)
[2020-03-14] MEDS: AMINO ACIDS/PROTEIN HYDROLYS 30 ML LIQUID.PKT PO SCH ×2 (09:58→17:27)
[2020-03-14] MEDS: HEPARIN NA (PORCINE) 5,000 UNITS/ML 1ML VIAL SQ SCH ×2 (09:59→21:23)
[2020-03-14 11:53] VITALS: BMI 18.1
[2020-03-15] MEDS ORDERED: MEROPENEM 1 GM VIAL (RESTRICTED TO ID) IVPB ONE ×3 (01:39→17:11)
[2020-03-15] MEDS ORDERED: DEXTROSE 5%-WATER 100 ML IVPB ONE ×3 (01:39→17:11)
[2020-03-15] MEDS: MEROPENEM 1 GM in DEXTROSE 5%-WATER 100 ML IVPB SCH ×3 (01:50→17:14)
[2020-03-15] MEDS: AMINO ACIDS/PROTEIN HYDROLYS 30 ML LIQUID.PKT PO SCH ×2 (09:12→17:15)
[2020-03-15] MEDS: HEPARIN NA (PORCINE) 5,000 UNITS/ML 1ML VIAL SQ SCH ×2 (09:12→22:29)
[2020-03-16] MEDS ORDERED: MEROPENEM 1 GM VIAL (RESTRICTED TO ID) IVPB ONE ×3 (02:07→18:06)
[2020-03-16] MEDS ORDERED: DEXTROSE 5%-WATER 100 ML IVPB ONE ×3 (02:07→18:06)
[2020-03-16] MEDS: MEROPENEM 1 GM in DEXTROSE 5%-WATER 100 ML IVPB SCH ×3 (02:12→18:09)
[2020-03-16] MEDS: HEPARIN NA (PORCINE) 5,000 UNITS/ML 1ML VIAL SQ SCH ×2 (09:14→21:31)
[2020-03-16] MEDS: AMINO ACIDS/PROTEIN HYDROLYS 30 ML LIQUID.PKT PO SCH ×2 (09:14→18:09)
[2020-03-17] MEDS ORDERED: MEROPENEM 1 GM VIAL (RESTRICTED TO ID) IVPB ONE ×3 (00:26→17:08)
[2020-03-17] MEDS ORDERED: DEXTROSE 5%-WATER 100 ML IVPB ONE ×3 (00:27→17:09)
[2020-03-17] MEDS: MEROPENEM 1 GM in DEXTROSE 5%-WATER 100 ML IVPB SCH ×3 (02:15→17:10)
[2020-03-17 08:14] LABS: BASO % 0.8 % (0-2.0); EOS % 27.4 % (0-4.5); HEMATOCRIT 31.6 % (35.4-49); HEMOGLOBIN 10.1 GM/dL (11.7-16.9); LYMPH % 24.2 % (8-40); MCH 25.5 pg (25.7-33.7); MCHC 32.1 g/dl (32.0-35.9); MEAN CELL VOLUME 79.2 fl (80-96); NEUT % 38.6 % (42.8-82.8); PLATELET COUNT 265 K/MM3 (134-434); RBC 3.98 M/mm3 (4.00-5.60); RDW 21.6 % (11.9-15.9); WHITE BLOOD COUNT 6.2 K/mm3 (4.0-10.0)
[2020-03-17 08:42] LABS: ALBUMIN 2.2 g/dl (3.4-5.0); BILIRUBIN,TOTAL 0.2 mg/dL (0.2-1); BLOOD UREA NITROGEN 30.6 mg/dL (7-18); CALCIUM 8.6 mg/dL (8.5-10.1); CREATININE 0.8 mg/dL (0.55-1.3); POTASSIUM 4.1 mmol/L (3.5-5.1)
[2020-03-17] MEDS: AMINO ACIDS/PROTEIN HYDROLYS 30 ML LIQUID.PKT PO SCH ×2 (09:56→17:11)
[2020-03-17] MEDS: HEPARIN NA (PORCINE) 5,000 UNITS/ML 1ML VIAL SQ SCH ×2 (09:57→21:42)
[2020-03-17] MEDS: LOSARTAN POTASSIUM 50 MG TABLET PO SCH (09:57)
[2020-03-17 10:44] LABS: PLATELET ESTIMATE NORMAL
[2020-03-18] MEDS ORDERED: MEROPENEM 1 GM VIAL (RESTRICTED TO ID) IVPB ONE ×3 (02:32→17:11)
[2020-03-18] MEDS ORDERED: DEXTROSE 5%-WATER 100 ML IVPB ONE ×3 (02:32→17:11)
[2020-03-18] MEDS: MEROPENEM 1 GM in DEXTROSE 5%-WATER 100 ML IVPB SCH ×3 (02:38→17:14)
[2020-03-18] MEDS: LOSARTAN POTASSIUM 50 MG TABLET PO SCH (09:58)
[2020-03-18] MEDS: AMINO ACIDS/PROTEIN HYDROLYS 30 ML LIQUID.PKT PO SCH ×2 (09:58→17:13)
[2020-03-18] MEDS: HEPARIN NA (PORCINE) 5,000 UNITS/ML 1ML VIAL SQ SCH ×2 (09:58→21:50)
[2020-03-19] MEDS ORDERED: MEROPENEM 1 GM VIAL (RESTRICTED TO ID) IVPB ONE ×3 (02:32→16:39)
[2020-03-19] MEDS ORDERED: DEXTROSE 5%-WATER 100 ML IVPB ONE ×3 (02:32→16:39)
[2020-03-19] MEDS: MEROPENEM 1 GM in DEXTROSE 5%-WATER 100 ML IVPB SCH ×3 (02:40→17:11)
[2020-03-19 07:36] LABS: BASO % 0.7 % (0-2.0); EOS % 27.6 % (0-4.5); HEMATOCRIT 32.1 % (35.4-49); HEMOGLOBIN 10.3 GM/dL (11.7-16.9); MCH 25.2 pg (25.7-33.7); MCHC 32.2 g/dl (32.0-35.9); MEAN CELL VOLUME 78.1 fl (80-96); MEAN PLT VOLUME 6.8 fl (7.5-11.1); MONO % 10.1 % (3.8-10.2); NEUT % 39.6 % (42.8-82.8); PLATELET COUNT 281 K/MM3 (134-434); RBC 4.11 M/mm3 (4.00-5.60); RDW 21.3 % (11.9-15.9); WHITE BLOOD COUNT 6.9 K/mm3 (4.0-10.0)
[2020-03-19] MEDS: AMINO ACIDS/PROTEIN HYDROLYS 30 ML LIQUID.PKT PO SCH ×2 (08:23→17:11)
[2020-03-19] MEDS: LOSARTAN POTASSIUM 50 MG TABLET PO SCH (10:09)
[2020-03-19] MEDS: HEPARIN NA (PORCINE) 5,000 UNITS/ML 1ML VIAL SQ SCH (10:10)
[2020-03-19 10:16] LABS: ANISOCYTOSIS 1+; MACROCYTOSIS 1+; PLATELET ESTIMATE NORMAL
[2020-03-20] MEDS ORDERED: MEROPENEM 1 GM VIAL (RESTRICTED TO ID) IVPB ONE ×3 (01:03→17:07)
[2020-03-20] MEDS ORDERED: DEXTROSE 5%-WATER 100 ML IVPB ONE ×3 (01:03→17:07)
[2020-03-20] MEDS: MEROPENEM 1 GM in DEXTROSE 5%-WATER 100 ML IVPB SCH ×3 (01:48→17:23)
[2020-03-20] MEDS: AMINO ACIDS/PROTEIN HYDROLYS 30 ML LIQUID.PKT PO SCH ×2 (10:08→17:23)
[2020-03-20] MEDS: LOSARTAN POTASSIUM 50 MG TABLET PO SCH (10:08)
[2020-03-21] MEDS ORDERED: MEROPENEM 1 GM VIAL (RESTRICTED TO ID) IVPB ONE ×2 (02:06→09:11)
[2020-03-21] MEDS ORDERED: DEXTROSE 5%-WATER 100 ML IVPB ONE ×2 (02:06→09:11)
[2020-03-21] MEDS: MEROPENEM 1 GM in DEXTROSE 5%-WATER 100 ML IVPB SCH ×2 (02:46→09:32)
[2020-03-21] MEDS: AMINO ACIDS/PROTEIN HYDROLYS 30 ML LIQUID.PKT PO SCH (08:55)
[2020-03-21] MEDS: LOSARTAN POTASSIUM 50 MG TABLET PO SCH (09:32)
[2020-03-21 09:54] VITALS: BP 117/57; PULSE 92; TEMP 97.6
== END 2020-03-21 13:35 | disposition home health service (06) | DRG 698 ==
LOC: JER 15:38 → JERBED 19:09 → J5S 20:11 → J6S 03-15 13:50
PROVIDERS: ADMIT Internal Medicine; ATTEND Internal Medicine
PROC: 0T9130Z Drainage of Left Kidney with Drainage Device, Percutaneous Approach (ICD-10-PCS; principal; 2020-03-13)
DX: T83.022A Displacement of nephrostomy catheter, initial encounter (principal); R53.2 Functional quadriplegia; L89.154 Pressure ulcer of sacral region, stage 4; N39.0 Urinary tract infection, site not specified; T83.511A Infection and inflammatory reaction due to indwelling urethral catheter, initial encounter; N13.30 Unspecified hydronephrosis; D64.9 Anemia, unspecified; E11.9 Type 2 diabetes mellitus without complications; N31.9 Neuromuscular dysfunction of bladder, unspecified; I10 Essential (primary) hypertension; N99.528 Other complication of incontinent external stoma of urinary tract; Z93.3 Colostomy status; D72.1 Eosinophilia; Y83.9 Surgical procedure, unspecified as the cause of abnormal reaction of the patient, or of later complication, without mention of misadventure at the time of the procedure
CPT/HCPCS: 36415; 50435; 71045-TC-FY; 76000-TC-FY; 80053; 81003; 85025; 85610; 86850; 86900; 86901; 87086; 87186; 93005; 93010; 99285-25; A4358; C1729; C1769; C1887; J1644; U0003

== ENCOUNTER 2020-04-16 13:41 | Inpatient (IN) | payer MEDICARE, OTHER ==
--- NOTE | 2020-04-16 13:55 | PDOC ---
History of Present Illness - General Chief Complaint: Wound Stated Complaint: NEPHROSTOMY TUBE BLEED Time Seen by Provider: 04/16/20 13:55 History Source: Patient Exam Limitations: No Limitations - History of Present Illness Initial Comments: 04/16/20 14:04 74yM w PMHx sigmoid volvulus s/p colostomy, sacral ulcer s/p wound vac, quadriplegic, HTN, neurogenic bladder s/p suprapubic catheter and L nephrostomy tube, ESBL UTI, presenting w gross hematuria in urosotomy bag from L nephrostomy tube. Pt is a poor historian, doesnt recall if he noted blood for the last 2hrs or 2days. Last seen for nephrostomy tube dislodgment, replaced by Dr Morris on 03/13. Not on anticoagulation. Denies abd pain, nephrostomy tube tenderness, fevers, n/v. Past History - Medical History Allergies/Adverse Reactions: Allergies Allergy/AdvReac Type Severity Reaction Status Date / Time ciprofloxacin Allergy Verified 04/16/20 13:45 piperacillin [From Zosyn] Allergy Verified 04/16/20 13:45 tazobactam [From Zosyn] Allergy Verified 04/16/20 13:45 Penicillins AdvReac Verified 04/16/20 13:45 Home Medications: Ambulatory Orders Amino Acids/Protein Hydrolys [Prosource No Carb Liquid Pkt] 30 ml PO BID@0800,1730 #60 packet 03/20/20 Losartan Potassium [Cozaar -] 50 mg PO DAILY #30 tablet 03/20/20 Anemia: Yes Asthma: No Cancer: No Cardiac Disorders: No CVA: No COPD: No CHF: No Dementia: No Diabetes: Yes GI Disorders: No Disorders: Yes (neurogenic bladder, suprapubic catheter) HTN: Yes Hypercholesterolemia: No Liver Disease: No Seizures: No Thyroid Disease: No - Surgical History Abdominal Surgery: Yes (Colon resection with Colostomy bag) Cardiac Surgery: Yes (IVC filter) GI Surgery: Yes (colostomy) - Immunization History Immunization Up to Date: No - Psycho-Social/Smoking History Smoking History: Never smoked Have you smoked in the past 12 months: No Information on smoking cessation initiated: No - Substance Abuse Hx (Audit-C & DAST Scrn) How often the patient has a drink containing alcohol: Never Score: In Men: 4 or > Positive; In Women: 3 or > Positive: 0 Screen Result (Pos requires Nsg. Audit-10AR): Negative In the last yr the pt used illegal drug/Rx for NonMed reason: No Score: Yes response is considered Positive: 0 Screen Result (Positive result requires Nsg. DAST-10): Negative Review of Systems - Review of Systems Constitutional: No: Chills, Fever HEENTM: No: Eye Pain, Nose Congestion Respiratory: No: Cough, Shortness of Breath Cardiac (ROS): No: Chest Pain, Palpitations ABD/GI: No: Abdominal Distended, Constipated, Diarrhea, Nausea, Vomiting : Yes: Hematuria. No: Pain Musculoskeletal: No: Back Pain, Joint Pain Integumentary: No: Bruising, Flushing Neurological: No: Headache, Seizure Psychiatric: No: Anxiety, Depression Endocrine: No: Intolerance to Cold, Intolerance to Heat Hematologic/Lymphatic: No: Anemia, Blood Clots *Physical Exam - Vital Signs Last Vital Signs Temp Pulse Resp BP Pulse Ox 98.2 F 70 18 129/58 L 99 04/16/20 13:47 04/16/20 13:47 04/16/20 13:47 04/16/20 13:47 04/16/20 13:47 - Physical Exam General Appearance: Yes: Nourished, Appropriately Dressed. No: Apparent D istress HEENT: positive: EOMI, MATILDE, Normal Voice, Hearing Grossly Normal. negative: Scleral Icterus (R), Scleral Icterus (L) Respiratory/Chest: positive: Lungs Clear, Normal Breath Sounds. negative: Chest Tender, Respiratory Distress Cardiovascular: positive: Regular Rhythm, Regular Rate, S1, S2. negative: Edema, Murmur Gastrointestinal/Abdominal: positive: Normal Bowel Sounds, Soft, Distended, Other (L nephrostomy tube site intact, not tender/red. Gross robbins red hematuria in urostomy bag, clinical trial associate hematuria in R suprapubic catheter bag, L colostomy bag in place). negative: Tender Integumentary: positive: Normal Color, Warm. negative: Dry Neurologic: positive: Fully Oriented, Alert, Normal Mood/Affect, Normal Response, Responsive ED Treatment Course - LABORATORY CBC & Chemistry Diagram: 04/16/20 15:47 04/16/20 15:47 Medical Decision Making - Medical Decision Making 04/16/20 13:59 EKG - sinus sussy, HR 58, QTc 388, unchanged TWI V5,6, I, aVL vs 11/08/19 --- 74yM w PMHx sigmoid volvulus s/p colostomy, sacral ulcer s/p wound vac, quadriplegic, HTN, neurogenic bladder s/p suprapubic catheter and L nephrostomy tube, ESBL UTI, presenting w gross hematuria in urosotomy bag from L nephrostomy tube d/t UTI. Lower concern for mechanical obstruction (urine still draining into bag). Tube in place, not dislodged or infected. Given meropenem based on prior ESBL UTI, sensitive cultures Consulted Dr Morris - advised hematuria likely d/t UTI, get UA, labs, routine ultrasound confirm nephrostomy tube placement, likely admit Admitted m/s for UTI requiring IV antibiotics Discharge - Discharge Information Problems reviewed: Yes Clinical Impression/Diagnosis: UTI (urinary tract infection) Qualifiers: Urinary tract infection type: acute cystitis Hematuria presence: with hematuria Qualified Code(s): N30.01 - Acute cystitis with hematuria Condition: Good - Follow up/Referral Referrals: Cesar Sutherland MD [Primary Care Provider] - - Patient Discharge Instructions - Post Discharge Activity
[2020-04-16 15:38] LABS: PH,URINE >= 9.0 (5.0-8.0); URINE APPEARANCE Cloudy; URINE BILIRUBIN 2+ (NEGATIVE); URINE COLOR Brown; URINE GLUCOSE (UA) Negative (NEGATIVE); URINE KETONE Negative (NEGATIVE); URINE LEUK ESTERASE 3+ (NEGATIVE); URINE NITRITE Positive (NEGATIVE); URINE PROTEIN 3+ (NEGATIVE); URINE UROBILINOGEN 0.2 mg/dL (0.2-1.0)
[2020-04-16] MEDS ORDERED: MEROPENEM 1 GM in DEXTROSE 5%-WATER 100 ML IVPB ONE (15:54)
[2020-04-16 16:28] LABS: EOS % 21.9 % (0-4.5); HEMATOCRIT 29.7 % (35.4-49); HEMOGLOBIN 9.6 GM/dL (11.7-16.9); LYMPH % 22.4 % (8-40); MCH 25.3 pg (25.7-33.7); MCHC 32.4 g/dl (32.0-35.9); MEAN CELL VOLUME 78.1 fl (80-96); MEAN PLT VOLUME 6.2 fl (7.5-11.1); MONO % 9.9 % (3.8-10.2); NEUT % 44.8 % (42.8-82.8); PLATELET COUNT 316 K/MM3 (134-434); RDW 18.7 % (11.9-15.9); WHITE BLOOD COUNT 7.2 K/mm3 (4.0-10.0)
--- NOTE | 2020-04-16 16:33 | PDOC ---
Documentation entered by Lin Akbar SCRIBE, acting as scribe for Helen Malloy MD. Helen Malloy MD: This documentation has been prepared by the Naomie santacruz Brenda, SCRIBE, under my direction and personally reviewed by me in its entirety. I confirm that the documentation accurately reflects all work, treatment, procedures, and medical decision making performed by me. Attending Attestation - Resident Resident Name: Waldemar Chappell - ED Attending Attestation I have performed the following: I have examined & evaluated the patient, The case was reviewed & discussed with the resident, I agree w/resident's findings & plan, Exceptions are as noted - HPI HPI: 04/16/20 15:57 The patient is a 74 year old male with a significant PMH of sigmoid volvulus s/p colostomy, sacral wound s/p wound vac, quadriplegic, HTN, neurogenic bladder s/p suprapubic catheter and Left nephrostomy tube who presents to the ED for evaluation of gross hematuria in his urostomy bag from his left nephrostomy tube. Patient is a poor historian and does not know when he first noticed blood. Denies fevers, chills, N/V, abd pain, CP, SOB. Allergies: Per EMR - Physicial Exam PE: 04/16/20 16:25 Agree with resident exam - Medical Decision Making 04/16/20 16:31 74yo M presents to the ED with bleeding from L nephrostomy tube and suprapubic catheter. Pt denies dislodgement of tube, appears in place on exam UA consistent with UTI, pt has hx ESBL - covered with meropenem. Infection likely causing blood in tube Case discussed with IR Dr. Jara, recommends admission and states imaging can be done as inpt to assess nephrostomy tube Anticipate admission Discharge - Discharge Information Problems reviewed: Yes Clinical Impression/Diagnosis: UTI (urinary tract infection) - Follow up/Referral Referrals: Cesar Sutherland MD [Primary Care Provider] - - Patient Discharge Instructions - Post Discharge Activity
[2020-04-16 16:56] LABS: ALBUMIN 2.2 g/dl (3.4-5.0); BILIRUBIN,TOTAL 0.2 mg/dL (0.2-1); BLOOD UREA NITROGEN 32.7 mg/dL (7-18); CALCIUM 8.7 mg/dL (8.5-10.1); CREATININE 1.3 mg/dL (0.55-1.3); POTASSIUM 4.4 mmol/L (3.5-5.1); TOT PROT 6.2 g/dl (6.4-8.2)
[2020-04-16 17:21] LABS: ANISOCYTOSIS 2+; MACROCYTOSIS 0; OVALOCYTE 1+; PLATELET ESTIMATE NORMAL; TARGET CELLS 1+
--- NOTE | 2020-04-16 22:32 | HP ---
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 ) Cardiovascular: Yes: HTN Renal/: Yes: Hematuria, Neurogenic Bladder Infectious Disease: Yes: Other (ESBL/Pseudomonas- Urine) Musculoskeletal: Yes: Other (Quadriplegia) Endocrine: Yes: Diabetes Mellitus - Smoking History Smoking history: Never smoked Have you smoked in the past 12 months: No - Alcohol/Substance Use Hx Alcohol Use: No History of Substance Use: reports: None - Social History ADL: Support Services History of Recent Travel: No Home Medications - Allergies Allergies/Adverse Reactions: Allergies Allergy/AdvReac Type Severity Reaction Status Date / Time ciprofloxacin Allergy Verified 04/16/20 13:45 piperacillin [From Zosyn] Allergy Verified 04/16/20 13:45 tazobactam [From Zosyn] Allergy Verified 04/16/20 13:45 Penicillins AdvReac Verified 04/16/20 13:45 - Home Medications Home Medications: Ambulatory Orders Amino Acids/Protein Hydrolys [Prosource No Carb Liquid Pkt] 30 ml PO BID@0800,1730 #60 packet 03/20/20 Losartan Potassium [Cozaar -] 50 mg PO DAILY #30 tablet 03/20/20 Physical Examination Vital Signs: Vital Signs Temperature 98.9 F 04/16/20 13:53 Pulse Rate 60 04/16/20 21:40 Respiratory Rate 16 04/16/20 16:39 Blood Pressure 151/62 04/16/20 21:40 O2 Sat by Pulse Oximetry (%) 100 04/16/20 21:40 Labs: CBC, BMP 04/16/20 15:47 04/16/20 15:47
[2020-04-17 04:52] VITALS: BMI 19.1
[2020-04-17] MEDS ORDERED: MEROPENEM 1 GM in DEXTROSE 5%-WATER 100 ML IVPB SCH (10:00)
[2020-04-17] MEDS ORDERED: MEROPENEM 1 GM in DEXTROSE 5%-WATER 100 ML IVPB ONE (10:00)
[2020-04-17] MEDS ORDERED: DEXTROSE 5%-WATER 100 ML IVPB ONE ×2 (10:11→22:19)
[2020-04-17] MEDS ORDERED: MEROPENEM 1 GM VIAL (RESTRICTED TO ID) IVPB ONE ×2 (10:11→22:19)
[2020-04-17] MEDS: LOSARTAN POTASSIUM 50 MG TABLET (FP) PO SCH (10:14)
[2020-04-17] MEDS: DEXTROSE 5%-0.45% SALINE 1,000 ML IV SCH (10:15)
--- NOTE | 2020-04-17 12:02 | CON.ID ---
Consult Consult Specialty:: infectious diseases Referred by:: Reason for Consultation:: hematuria,wound infection - History of Present Illness Chief Complaint: hematuria from nephrostomy tube History of Present Illness: 74 yo male with multiple medical problems. admitted to hospital with hematuria from left nephrostomy tube (which has cleared since admit to hospital). 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 ) Cardio/Vascular: Yes: HTN Renal/: Yes: Hematuria, Neurogenic Bladder Infectious Disease: Yes: Other (ESBL/Pseudomonas- Urine) Musculoskeletal: Yes: Other (Quadriplegia) Endocrine: Yes: Diabetes Mellitus - Alcohol/Substance Use Hx Alcohol Use: No History of Substance Use: reports: None - Smoking History Smoking history: Never smoked Have you smoked in the past 12 months: No - Social History Usual Living Arrangement: [facility] ADL: Support Services History of Recent Travel: No Home Medications - Allergies Allergies/Adverse Reactions: Allergies Allergy/AdvReac Type Severity Reaction Status Date / Time ciprofloxacin Allergy Verified 04/16/20 13:45 piperacillin [From Zosyn] Allergy Verified 04/16/20 13:45 tazobactam [From Zosyn] Allergy Verified 04/16/20 13:45 Penicillins AdvReac Verified 04/16/20 13:45 - Home Medications Home Medications: Ambulatory Orders Amino Acids/Protein Hydrolys [Prosource No Carb Liquid Pkt] 30 ml PO BID@0800,1730 #60 packet 03/20/20 Losartan Potassium [Cozaar -] 50 mg PO DAILY #30 tablet 03/20/20 Review of Systems - Review of Systems Constitutional: reports: No Symptoms Eyes: reports: No Symptoms HENT: reports: No Symptoms Neck: reports: No Symptoms Cardiovascular: reports: No Symptoms Respiratory: reports: No Symptoms Gastrointestinal: reports: No Symptoms Genitourinary: reports: Hematuria Musculoskeletal: reports: No Symptoms Integumentary: reports: No Symptoms Neurological: reports: No Symptoms Endocrine: reports: No Symptoms Hematology/Lymphatic: reports: No Symptoms Psychiatric: reports: No Symptoms Physical Exam Vital Signs: Vital Signs Temperature 98 F 04/17/20 10:00 Pulse Rate 77 04/17/20 10:00 Respiratory Rate 18 07/07/20 10:00 Blood Pressure 130/57 L 04/17/20 10:00 O2 Sat by Pulse Oximetry (%) 99 04/17/20 09:00 Constitutional: Yes: Well Nourished, Calm, Mild Distress Eyes: Yes: Conjunctiva Clear HENT: Yes: Atraumatic, Normocephalic Neck: Yes: Supple, Trachea Midline Cardiovascular: Yes: Regular Rate and Rhythm Respiratory: Yes: Regular, CTA Bilaterally Gastrointestinal: Yes: Normal Bowel Sounds, Soft Renal/: Yes: Hematuria, Other (nephrostomy tube) Musculoskeletal: Yes: WNL Extremities: Yes: WNL Neurological: Yes: Alert, Oriented Psychiatric: Yes: Alert, Oriented Labs: CBC, BMP 04/16/20 15:47 04/16/20 15:47 Imaging - Results Ultrasound: Report Reviewed, Image Reviewed Assessment/Plan Problem List - Problems (1) Chronic suprapubic catheter Code(s): Z93.59 - OTHER CYSTOSTOMY STATUS (2) Nephrostomy tube bleed Code(s): T83.83XA - HEMORRHAGE DUE TO GENITOURINARY PROSTH DEV/GRFT, INIT (3) UTI (urinary tract infection) Code(s): N39.0 - URINARY TRACT INFECTION, SITE NOT SPECIFIED Qualifiers: Urinary tract infection type: acute cystitis Hematuria presence: with hematuria Qualified Code(s): N30.01 - Acute cystitis with hematuria (4) Diabetes Code(s): E11.9 - TYPE 2 DIABETES MELLITUS WITHOUT COMPLICATIONS (5) Functional quadriplegia Code(s): R53.2 - FUNCTIONAL QUADRIPLEGIA (6) HTN (hypertension) Assessment/Plan: on meds monitor Code(s): I10 - ESSENTIAL (PRIMARY) HYPERTENSION (7) Neurogenic bladder Code(s): N31.9 - NEUROMUSCULAR DYSFUNCTION OF BLADDER, UNSPECIFIED (8) Stage 4 decubitus ulcer Code(s): L89.94 - PRESSURE ULCER OF UNSPECIFIED SITE, STAGE 4 (9) UTI (urinary tract infection) Code(s): N39.0 - URINARY TRACT INFECTION, SITE NOT SPECIFIED Qualifiers: Urinary tract infection type: site unspecified Hematuria presence: with hematuria Qualified Code(s): N39.0 - Urinary tract infection, site not specified; R31.9 - Hematuria, unspecified patient has probably infection in the urine i am going to start him on abx further studies rest as per the team
--- NOTE | 2020-04-17 12:06 | EKG ---
Test Reason : Blood Pressure : / mmHG Vent. Rate : 058 BPM Atrial Rate : 058 BPM P-R Int : 144 ms QRS Dur : 100 ms QT Int : 396 ms P-R-T Axes : 074 063 089 degrees QTc Int : 388 ms SINUS BRADYCARDIA T WAVE ABNORMALITY, CONSIDER LATERAL ISCHEMIA ABNORMAL ECG WHEN COMPARED WITH ECG OF 12-MAR-2020 16:50, INVERTED T WAVES HAVE REPLACED NONSPECIFIC T WAVE ABNORMALITY IN LATERAL LEADS Confirmed by MD Washington, Ayan (2022) on 04/17/2020 12:05:28 PM Referred By: Confirmed By:Ayan Delarosa MD
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
--- NOTE | 2020-04-17 16:41 | PN ---
Progress Note, Physician History of Present Illness: stable - Current Medication List Current Medications: Active Medications Amino Acids (Prosource No Carb Liquid Pkt) 30 ml PO BID@0800,1730 [facility] Dextrose/Sodium Chloride (D5-1/2ns -) 1,000 mls @ 75 mls/hr IV ASDIR [facility] Last Admin: 04/17/20 10:15 Dose: 75 mls/hr Documented by: Meropenem 1 gm/ Dextrose 100 mls @ 200 mls/hr IVPB BID [facility] Losartan Potassium (Cozaar -) 50 mg PO DAILY [facility] Last Admin: 04/17/20 10:14 Dose: 50 mg Documented by: - Objective Vital Signs: Vital Signs Temperature 98.4 F 04/17/20 13:53 Pulse Rate 79 04/17/20 13:53 Respiratory Rate 18 04/17/20 13:53 Blood Pressure 155/67 04/17/20 13:53 O2 Sat by Pulse Oximetry (%) 99 04/17/20 09:00 Constitutional: Yes: No Distress HENT: Yes: Atraumatic Neck: Yes: Supple Cardiovascular: Yes: Regular Rate and Rhythm Respiratory: Yes: CTA Bilaterally Gastrointestinal: Yes: Normal Bowel Sounds Extremities: Yes: WNL Neurological: Yes: Alert, Oriented Labs: CBC, BMP 04/16/20 15:47 04/16/20 15:47 Problem List - Problems (1) Chronic suprapubic catheter Code(s): Z93.59 - OTHER CYSTOSTOMY STATUS (2) Nephrostomy tube bleed Code(s): T83.83XA - HEMORRHAGE DUE TO GENITOURINARY PROSTH DEV/GRFT, INIT (3) UTI (urinary tract infection) Code(s): N39.0 - URINARY TRACT INFECTION, SITE NOT SPECIFIED Qualifiers: Urinary tract infection type: acute cystitis Hematuria presence: with hematuria Qualified Code(s): N30.01 - Acute cystitis with hematuria (4) Diabetes Code(s): E11.9 - TYPE 2 DIABETES MELLITUS WITHOUT COMPLICATIONS (5) Functional quadriplegia Code(s): R53.2 - FUNCTIONAL QUADRIPLEGIA (6) HTN (hypertension) Assessment/Plan: on meds monitor Code(s): I10 - ESSENTIAL (PRIMARY) HYPERTENSION (7) Neurogenic bladder Code(s): N31.9 - NEUROMUSCULAR DYSFUNCTION OF BLADDER, UNSPECIFIED (8) Stage 4 decubitus ulcer Code(s): L89.94 - PRESSURE ULCER OF UNSPECIFIED SITE, STAGE 4 (9) UTI (urinary tract infection) Code(s): N39.0 - URINARY TRACT INFECTION, SITE NOT SPECIFIED Qualifiers: Urinary tract infection type: site unspecified Hematuria presence: with hematuria Qualified Code(s): N39.0 - Urinary tract infection, site not specified; R31.9 - Hematuria, unspecified Assessment/Plan 74yM w PMHx sigmoid volvulus s/p colostomy, sacral ulcer s/p wound vac, quadriplegic, HTN, neurogenic bladder s/p suprapubic catheter and L nephrostomy tube, ESBL UTI, presenting w gross hematuria in urosotomy bag from L nephrostomy tube. Pt is a poor historian, doesnt recall if he noted blood for the last 2hrs or 2days. Last seen for nephrostomy tube dislodgment, replaced by Dr Morris on 03/13. Not on anticoagulation. Denies abd pain, nephrostomy tube tenderness, fevers, n/v. PMHx: Quadriplegia HTN Bladder CA Hematuria Neurogenic Bladder ESBL/Pseudomonas- Urine Diabetes Mellitus Stage 4 Sacral Ulcer 1.UTI on iv abx per id cxs pending urology consult pending COVERING FOR DR DE LA ROSA TODAY
[2020-04-17] MEDS: AMINO ACIDS/PROTEIN HYDROLYS 30 ML LIQUID.PKT PO SCH (18:30)
[2020-04-17] MEDS: MEROPENEM 1 GM in DEXTROSE 5%-WATER 100 ML IVPB SCH (22:28)
--- NOTE | 2020-04-18 00:47 | CONS ---
DATE OF CONSULTATION: DATE OF DICTATION: 04/17/2020 HISTORY OF PRESENT ILLNESS: The patient is a 74-year-old male admitted via the emergency room on April 16, 2020, with bleeding per left nephrostomy tube. Patient has a long and complicated history. He is a paraplegic who had history of sigmoid volvulus, then had a colectomy as well as a permanent colostomy, presents with multiple stage 4 sacral ulcers, has had wound debridement as well as wound care by general surgery service. He is also a hypertensive with a neurogenic bladder, has had a suprapubic in place. He also underwent a left nephrostomy because of left lower ureteral stricture and hydronephrosis. His urine grew out E. coli as well as ESBL. Patient is a poor historian and does not really know his entire history. He did have his left nephrostomy replaced on March [address] Solis. He denies any anticoagulation or trauma. He is allergic to CIPRO, ZOSYN, and PENICILLIN. He also has history of diabetes and hypercholesterolemia. He has had an IVC filter placed in the past. PHYSICAL EXAMINATION: Abdomen: Soft abdomen. His suprapubic catheter reveals blood-tinged urine. LABORATORY DATA: White count of 7.2, hemoglobin and hematocrit 9.6/29.7, BUN and creatinine were 32.7/1.3. The EKG revealed sinus bradycardia. Patient has been seen by infectious disease and placed on meropenem for his ESBL UTI. An ultrasound of his kidneys performed earlier this morning revealed mild right hydronephrosis and a right renal exophytic cyst measuring 6 x 2.6 cm. There was an echogenic left kidney suggestive of chronic medical disease. IMPRESSION: At present is neurogenic bladder with suprapubic tube and left nephrostomy, history of gross total painless bleeding per nephrostomy tube as well as suprapubic tube. Must rule out bladder pathology including bladder tumors or renal pelvic tumor. Will recommend a CT scan with and without intravenous contrast. Will also recommend a cystoscopy when patient is medically stable. Will follow with you. Chloe [id number]
[2020-04-18] MEDS: DEXTROSE 5%-0.45% SALINE 1,000 ML IV SCH ×2 (04:40→09:41)
[2020-04-18 07:35] LABS: BASO % 0.8 % (0-2.0); EOS % 29.7 % (0-4.5); HEMATOCRIT 30.5 % (35.4-49); HEMOGLOBIN 9.8 GM/dL (11.7-16.9); LYMPH % 19.5 % (8-40); MCH 24.7 pg (25.7-33.7); MEAN CELL VOLUME 77.2 fl (80-96); MEAN PLT VOLUME 6.3 fl (7.5-11.1); MONO % 6.9 % (3.8-10.2); NEUT % 43.1 % (42.8-82.8); PLATELET COUNT 350 K/MM3 (134-434); RBC 3.95 M/mm3 (4.00-5.60); RDW 17.9 % (11.9-15.9)
[2020-04-18 08:05] LABS: ALBUMIN 2.2 g/dl (3.4-5.0); BILIRUBIN,TOTAL 0.3 mg/dL (0.2-1); BLOOD UREA NITROGEN 33.6 mg/dL (7-18); CALCIUM 8.1 mg/dL (8.5-10.1); CREATININE 1.3 mg/dL (0.55-1.3); POTASSIUM 4.2 mmol/L (3.5-5.1); TOT PROT 6.4 g/dl (6.4-8.2)
[2020-04-18] MEDS ORDERED: DEXTROSE 5%-WATER 100 ML IVPB ONE ×2 (09:10→21:17)
[2020-04-18] MEDS ORDERED: MEROPENEM 1 GM VIAL (RESTRICTED TO ID) IVPB ONE ×2 (09:10→21:17)
[2020-04-18] MEDS: MEROPENEM 1 GM in DEXTROSE 5%-WATER 100 ML IVPB SCH ×2 (09:40→21:23)
[2020-04-18] MEDS: LOSARTAN POTASSIUM 50 MG TABLET (FP) PO SCH (09:41)
[2020-04-18] MEDS: AMINO ACIDS/PROTEIN HYDROLYS 30 ML LIQUID.PKT PO SCH ×2 (09:42→17:08)
[2020-04-18] MEDS ORDERED: MEROPENEM 1 GM in DEXTROSE 5%-WATER 100 ML IVPB SCH (10:00)
[2020-04-18 10:53] LABS: ANISOCYTOSIS 1+; MACROCYTOSIS 0; PLATELET ESTIMATE NORMAL
--- NOTE | 2020-04-18 11:23 | PN ---
Progress Note, Physician History of Present Illness: stable feels better - Current Medication List Current Medications: Active Medications Amino Acids (Prosource No Carb Liquid Pkt) 30 ml PO BID@0800,1730 [facility] Last Admin: 04/18/20 09:42 Dose: Not Given Documented by: Dextrose/Sodium Chloride (D5-1/2ns -) 1,000 mls @ 75 mls/hr IV ASDIR [facility] Last Admin: 04/18/20 09:41 Dose: Not Given Documented by: Meropenem 1 gm/ Dextrose 100 mls @ 200 mls/hr IVPB BID [facility] Last Admin: 04/18/20 09:40 Dose: 200 mls/hr Documented by: Losartan Potassium (Cozaar -) 50 mg PO DAILY [facility] Last Admin: 04/18/20 09:41 Dose: 50 mg Documented by: - Objective Vital Signs: Vital Signs Temperature 98.0 F 04/18/20 06:00 Pulse Rate 69 04/18/20 06:00 Respiratory Rate 18 04/18/20 06:00 Blood Pressure 136/58 L 04/18/20 06:00 O2 Sat by Pulse Oximetry (%) 99 04/17/20 21:00 Constitutional: Yes: No Distress, Calm Cardiovascular: Yes: S1, S2 Respiratory: Yes: Regular, CTA Bilaterally Gastrointestinal: Yes: Normal Bowel Sounds, Soft, Other (colostomy) Neurological: Yes: Alert, Oriented Psychiatric: Yes: Alert, Oriented Labs: CBC, BMP 04/18/20 06:55 04/18/20 06:55 Assessment/Plan Problem List - Problems (1) Chronic suprapubic catheter Code(s): Z93.59 - OTHER CYSTOSTOMY STATUS (2) Nephrostomy tube bleed Code(s): T83.83XA - HEMORRHAGE DUE TO GENITOURINARY PROSTH DEV/GRFT, INIT (3) UTI (urinary tract infection) Code(s): N39.0 - URINARY TRACT INFECTION, SITE NOT SPECIFIED Qualifiers: Urinary tract infection type: acute cystitis Hematuria presence: with hematuria Qualified Code(s): N30.01 - Acute cystitis with hematuria (4) Diabetes Code(s): E11.9 - TYPE 2 DIABETES MELLITUS WITHOUT COMPLICATIONS (5) Functional quadriplegia Code(s): R53.2 - FUNCTIONAL QUADRIPLEGIA (6) HTN (hypertension) Assessment/Plan: on meds monitor Code(s): I10 - ESSENTIAL (PRIMARY) HYPERTENSION (7) Neurogenic bladder Code(s): N31.9 - NEUROMUSCULAR DYSFUNCTION OF BLADDER, UNSPECIFIED (8) Stage 4 decubitus ulcer Code(s): L89.94 - PRESSURE ULCER OF UNSPECIFIED SITE, STAGE 4 (9) UTI (urinary tract infection) Code(s): N39.0 - URINARY TRACT INFECTION, SITE NOT SPECIFIED Qualifiers: Urinary tract infection type: site unspecified Hematuria presence: with hematuria Qualified Code(s): N39.0 - Urinary tract infection, site not specified; R31.9 - Hematuria, unspecified patient has probably infection in the urine i am going to start him on abx further studies rest as per the team will need nephrostomy change
--- NOTE | 2020-04-18 18:04 | PN ---
Progress Note, Physician History of Present Illness: stable - Current Medication List Current Medications: Active Medications Amino Acids (Prosource No Carb Liquid Pkt) 30 ml PO BID@0800,1730 [facility] Last Admin: 04/18/20 17:08 Dose: 30 ml Documented by: Dextrose/Sodium Chloride (D5-1/2ns -) 1,000 mls @ 75 mls/hr IV ASDIR [facility] Last Admin: 04/18/20 09:41 Dose: Not Given Documented by: Meropenem 1 gm/ Dextrose 100 mls @ 200 mls/hr IVPB BID [facility] Last Admin: 04/18/20 09:40 Dose: 200 mls/hr Documented by: Losartan Potassium (Cozaar -) 50 mg PO DAILY [facility] Last Admin: 04/18/20 09:41 Dose: 50 mg Documented by: - Objective Vital Signs: Vital Signs Temperature 98.4 F 04/18/20 14:39 Pulse Rate 74 04/18/20 14:39 Respiratory Rate 18 04/18/20 14:39 Blood Pressure 133/58 L 04/18/20 14:39 O2 Sat by Pulse Oximetry (%) 98 04/18/20 09:00 Constitutional: Yes: No Distress HENT: Yes: Atraumatic Neck: Yes: Supple Cardiovascular: Yes: Regular Rate and Rhythm Respiratory: Yes: CTA Bilaterally Gastrointestinal: Yes: Normal Bowel Sounds Extremities: Yes: WNL Neurological: Yes: Alert, Oriented Labs: CBC, BMP 04/18/20 06:55 04/18/20 06:55 Problem List - Problems (1) Chronic suprapubic catheter Code(s): Z93.59 - OTHER CYSTOSTOMY STATUS (2) Nephrostomy tube bleed Code(s): T83.83XA - HEMORRHAGE DUE TO GENITOURINARY PROSTH DEV/GRFT, INIT (3) UTI (urinary tract infection) Assessment/Plan: iv abx id on board Code(s): N39.0 - URINARY TRACT INFECTION, SITE NOT SPECIFIED Qualifiers: Urinary tract infection type: acute cystitis Hematuria presence: with hematuria Qualified Code(s): N30.01 - Acute cystitis with hematuria (4) Diabetes Code(s): E11.9 - TYPE 2 DIABETES MELLITUS WITHOUT COMPLICATIONS (5) Functional quadriplegia Code(s): R53.2 - FUNCTIONAL QUADRIPLEGIA (6) HTN (hypertension) Assessment/Plan: on meds monitor Code(s): I10 - ESSENTIAL (PRIMARY) HYPERTENSION (7) Neurogenic bladder Code(s): N31.9 - NEUROMUSCULAR DYSFUNCTION OF BLADDER, UNSPECIFIED (8) Stage 4 decubitus ulcer Code(s): L89.94 - PRESSURE ULCER OF UNSPECIFIED SITE, STAGE 4 Assessment/Plan COVERING FOR DR DE LA ROSA TODAY
[2020-04-19] MEDS ORDERED: MEROPENEM 1 GM VIAL (RESTRICTED TO ID) IVPB ONE ×2 (08:48→22:35)
[2020-04-19] MEDS ORDERED: DEXTROSE 5%-WATER 100 ML IVPB ONE ×2 (08:49→22:36)
[2020-04-19] MEDS: AMINO ACIDS/PROTEIN HYDROLYS 30 ML LIQUID.PKT PO SCH ×2 (09:20→18:15)
[2020-04-19] MEDS: MEROPENEM 1 GM in DEXTROSE 5%-WATER 100 ML IVPB SCH ×2 (09:20→22:38)
[2020-04-19] MEDS: DEXTROSE 5%-0.45% SALINE 1,000 ML IV SCH (09:21)
[2020-04-19] MEDS: LOSARTAN POTASSIUM 50 MG TABLET (FP) PO SCH (09:21)
--- NOTE | 2020-04-19 10:53 | PN ---
Progress Note, Physician History of Present Illness: s/p nephrostomy tube change stable - Current Medication List Current Medications: Active Medications Amino Acids (Prosource No Carb Liquid Pkt) 30 ml PO BID@0800,1730 [facility] Last Admin: 04/19/20 09:20 Dose: 30 ml Documented by: Dextrose/Sodium Chloride (D5-1/2ns -) 1,000 mls @ 75 mls/hr IV ASDIR [facility] Last Admin: 04/19/20 09:21 Dose: 75 mls/hr Documented by: Meropenem 1 gm/ Dextrose 100 mls @ 200 mls/hr IVPB BID [facility] Last Admin: 04/19/20 09:20 Dose: 200 mls/hr Documented by: Losartan Potassium (Cozaar -) 50 mg PO DAILY [facility] Last Admin: 04/19/20 09:21 Dose: 50 mg Documented by: - Objective Vital Signs: Vital Signs Temperature 98 F 04/19/20 10:00 Pulse Rate 68 04/19/20 10:00 Respiratory Rate 19 04/19/20 10:00 Blood Pressure 152/62 04/19/20 10:00 O2 Sat by Pulse Oximetry (%) 100 04/19/20 09:00 Constitutional: Yes: No Distress, Calm Cardiovascular: Yes: S1, S2 Respiratory: Yes: Regular, CTA Bilaterally Gastrointestinal: Yes: Normal Bowel Sounds, Soft Musculoskeletal: Yes: WNL Extremities: Yes: WNL Neurological: Yes: Alert, Oriented Psychiatric: Yes: Alert, Oriented Labs: CBC, BMP 04/18/20 06:55 04/18/20 06:55 Assessment/Plan Problem List - Problems (1) Chronic suprapubic catheter Code(s): Z93.59 - OTHER CYSTOSTOMY STATUS (2) Nephrostomy tube bleed Code(s): T83.83XA - HEMORRHAGE DUE TO GENITOURINARY PROSTH DEV/GRFT, INIT (3) UTI (urinary tract infection) Code(s): N39.0 - URINARY TRACT INFECTION, SITE NOT SPECIFIED Qualifiers: Urinary tract infection type: acute cystitis Hematuria presence: with hematuria Qualified Code(s): N30.01 - Acute cystitis with hematuria (4) Diabetes Code(s): E11.9 - TYPE 2 DIABETES MELLITUS WITHOUT COMPLICATIONS (5) Functional quadriplegia Code(s): R53.2 - FUNCTIONAL QUADRIPLEGIA (6) HTN (hypertension) Assessment/Plan: on meds monitor Code(s): I10 - ESSENTIAL (PRIMARY) HYPERTENSION (7) Neurogenic bladder Code(s): N31.9 - NEUROMUSCULAR DYSFUNCTION OF BLADDER, UNSPECIFIED (8) Stage 4 decubitus ulcer Code(s): L89.94 - PRESSURE ULCER OF UNSPECIFIED SITE, STAGE 4 (9) UTI (urinary tract infection) Code(s): N39.0 - URINARY TRACT INFECTION, SITE NOT SPECIFIED Qualifiers: Urinary tract infection type: site unspecified Hematuria presence: with hematuria Qualified Code(s): N39.0 - Urinary tract infection, site not specified; R31.9 - Hematuria, unspecified plan continue abx await for identifications of bacteria should repeat a urine cx rest as per the team
[2020-04-19] MEDS ORDERED: ACETAMINOPHEN 325 MG TABLET (FP) PO PRN (17:51)
--- NOTE | 2020-04-19 21:36 | PN ---
Progress Note, Physician History of Present Illness: Pt spiked temp to 100.4 - Current Medication List Current Medications: Active Medications Acetaminophen (Tylenol -) 650 mg PO Q4H PRN PRN Reason: FEVER (TEMP > 100.4) Last Admin: 04/19/20 18:15 Dose: 650 mg Documented by: Amino Acids (Prosource No Carb Liquid Pkt) 30 ml PO BID@0800,1730 [facility] Last Admin: 04/19/20 18:15 Dose: 30 ml Documented by: Dextrose/Sodium Chloride (D5-1/2ns -) 1,000 mls @ 75 mls/hr IV ASDIR [facility] Last Admin: 04/19/20 09:21 Dose: 75 mls/hr Documented by: Meropenem 1 gm/ Dextrose 100 mls @ 200 mls/hr IVPB BID [facility] Last Admin: 04/19/20 09:20 Dose: 200 mls/hr Documented by: Losartan Potassium (Cozaar -) 50 mg PO DAILY [facility] Last Admin: 04/19/20 09:21 Dose: 50 mg Documented by: - Objective Vital Signs: Vital Signs Temperature 100.4 F H 04/19/20 17:28 Pulse Rate 70 04/19/20 17:28 Respiratory Rate 20 04/19/20 17:28 Blood Pressure 147/61 04/19/20 17:28 O2 Sat by Pulse Oximetry (%) 100 04/19/20 09:00 Neck: Yes: WNL, Supple Cardiovascular: Yes: WNL, Regular Rate and Rhythm Respiratory: Yes: WNL, Regular, CTA Bilaterally Gastrointestinal: Yes: WNL, Normal Bowel Sounds, Soft, Other ((+) colostomy) Labs: CBC, BMP 04/18/20 06:55 04/18/20 06:55 Problem List - Problems (1) UTI (urinary tract infection) Assessment/Plan: Cont IV meropenem Panculture due to temp spikej Code(s): N39.0 - URINARY TRACT INFECTION, SITE NOT SPECIFIED Qualifiers: Urinary tract infection type: acute cystitis Hematuria presence: with hematuria Qualified Code(s): N30.01 - Acute cystitis with hematuria (2) Chronic suprapubic catheter Code(s): Z93.59 - OTHER CYSTOSTOMY STATUS (3) Anemia Code(s): D64.9 - ANEMIA, UNSPECIFIED (4) HTN (hypertension) Code(s): I10 - ESSENTIAL (PRIMARY) HYPERTENSION (5) Neurogenic bladder Code(s): N31.9 - NEUROMUSCULAR DYSFUNCTION OF BLADDER, UNSPECIFIED (6) Sacral decubitus ulcer, stage IV Code(s): L89.154 - PRESSURE ULCER OF SACRAL REGION, STAGE 4
[2020-04-20] MEDS: DEXTROSE 5%-0.45% SALINE 1,000 ML IV SCH ×2 (00:12→14:42)
[2020-04-20] MEDS: AMINO ACIDS/PROTEIN HYDROLYS 30 ML LIQUID.PKT PO SCH ×2 (09:54→17:00)
[2020-04-20] MEDS ORDERED: DEXTROSE 5%-WATER 100 ML IVPB ONE (10:01)
[2020-04-20] MEDS ORDERED: MEROPENEM 1 GM VIAL (RESTRICTED TO ID) IVPB ONE (10:01)
[2020-04-20] MEDS: MEROPENEM 1 GM in DEXTROSE 5%-WATER 100 ML IVPB SCH (10:09)
--- NOTE | 2020-04-20 10:32 | PN ---
Progress Note, Physician History of Present Illness: s/p nephrostomy tube change stable - Current Medication List Current Medications: Active Medications Acetaminophen (Tylenol -) 650 mg PO Q4H PRN PRN Reason: FEVER (TEMP > 100.4) Last Admin: 04/19/20 18:15 Dose: 650 mg Documented by: Amino Acids (Prosource No Carb Liquid Pkt) 30 ml PO BID@0800,1730 [facility] Last Admin: 04/20/20 09:54 Dose: Not Given Documented by: Dextrose/Sodium Chloride (D5-1/2ns -) 1,000 mls @ 75 mls/hr IV ASDIR [facility] Last Admin: 04/20/20 00:12 Dose: 75 mls/hr Documented by: Meropenem 1 gm/ Dextrose 100 mls @ 200 mls/hr IVPB BID [facility] Last Admin: 04/20/20 10:09 Dose: 200 mls/hr Documented by: Losartan Potassium (Cozaar -) 50 mg PO DAILY [facility] Last Admin: 04/19/20 09:21 Dose: 50 mg Documented by: - Objective Vital Signs: Vital Signs Temperature 97.9 F 04/20/20 06:00 Pulse Rate 60 04/20/20 06:00 Respiratory Rate 20 04/20/20 06:00 Blood Pressure 146/77 04/20/20 06:00 O2 Sat by Pulse Oximetry (%) 95 04/20/20 09:00 Constitutional: Yes: No Distress, Calm Cardiovascular: Yes: S1, S2 Respiratory: Yes: Regular, CTA Bilaterally Gastrointestinal: Yes: Normal Bowel Sounds, Soft Musculoskeletal: Yes: WNL Extremities: Yes: WNL Neurological: Yes: Alert, Oriented Psychiatric: Yes: Alert, Oriented Labs: CBC, BMP 04/18/20 06:55 04/18/20 06:55 Assessment/Plan Problem List - Problems (1) Chronic suprapubic catheter Code(s): Z93.59 - OTHER CYSTOSTOMY STATUS (2) Nephrostomy tube bleed Code(s): T83.83XA - HEMORRHAGE DUE TO GENITOURINARY PROSTH DEV/GRFT, INIT (3) UTI (urinary tract infection) Code(s): N39.0 - URINARY TRACT INFECTION, SITE NOT SPECIFIED Qualifiers: Urinary tract infection type: acute cystitis Hematuria presence: with hematuria Qualified Code(s): N30.01 - Acute cystitis with hematuria (4) Diabetes Code(s): E11.9 - TYPE 2 DIABETES MELLITUS WITHOUT COMPLICATIONS (5) Functional quadriplegia Code(s): R53.2 - FUNCTIONAL QUADRIPLEGIA (6) HTN (hypertension) Assessment/Plan: on meds monitor Code(s): I10 - ESSENTIAL (PRIMARY) HYPERTENSION (7) Neurogenic bladder Code(s): N31.9 - NEUROMUSCULAR DYSFUNCTION OF BLADDER, UNSPECIFIED (8) Stage 4 decubitus ulcer Code(s): L89.94 - PRESSURE ULCER OF UNSPECIFIED SITE, STAGE 4 (9) UTI (urinary tract infection) Code(s): N39.0 - URINARY TRACT INFECTION, SITE NOT SPECIFIED Qualifiers: Urinary tract infection type: site unspecified Hematuria presence: with hematuria Qualified Code(s): N39.0 - Urinary tract infection, site not specified; R31.9 - Hematuria, unspecified plan continue abx rest as per the team
--- NOTE | 2020-04-20 13:16 | PN ---
Progress Note, Physician History of Present Illness: s/p nephrostomy tube change - Current Medication List Current Medications: Active Medications Acetaminophen (Tylenol -) 650 mg PO Q4H PRN PRN Reason: FEVER (TEMP > 100.4) Last Admin: 04/19/20 18:15 Dose: 650 mg Documented by: Amino Acids (Prosource No Carb Liquid Pkt) 30 ml PO BID@0800,1730 [facility] Last Admin: 04/20/20 09:54 Dose: Not Given Documented by: Dextrose/Sodium Chloride (D5-1/2ns -) 1,000 mls @ 75 mls/hr IV ASDIR [facility] Last Admin: 04/20/20 00:12 Dose: 75 mls/hr Documented by: Meropenem 1 gm/ Dextrose 100 mls @ 200 mls/hr IVPB BID [facility] Last Admin: 04/20/20 10:09 Dose: 200 mls/hr Documented by: Losartan Potassium (Cozaar -) 50 mg PO DAILY [facility] Last Admin: 04/19/20 09:21 Dose: 50 mg Documented by: - Objective Vital Signs: Vital Signs Temperature 98 F 04/20/20 10:40 Pulse Rate 67 04/20/20 10:40 Respiratory Rate 18 04/20/20 10:40 Blood Pressure 133/55 L 04/20/20 10:40 O2 Sat by Pulse Oximetry (%) 95 04/20/20 09:00 Constitutional: Yes: No Distress HENT: Yes: Atraumatic Neck: Yes: Supple Cardiovascular: Yes: Regular Rate and Rhythm Respiratory: Yes: CTA Bilaterally Gastrointestinal: Yes: Normal Bowel Sounds Extremities: Yes: WNL Neurological: Yes: Alert, Oriented Labs: CBC, BMP 04/18/20 06:55 04/18/20 06:55 Problem List - Problems (1) Chronic suprapubic catheter Assessment/Plan: nephrostomy tube changed Code(s): Z93.59 - OTHER CYSTOSTOMY STATUS (2) Nephrostomy tube bleed Code(s): T83.83XA - HEMORRHAGE DUE TO GENITOURINARY PROSTH DEV/GRFT, INIT (3) UTI (urinary tract infection) Assessment/Plan: iv abx id on board cxs noted Code(s): N39.0 - URINARY TRACT INFECTION, SITE NOT SPECIFIED Qualifiers: Urinary tract infection type: acute cystitis Hematuria presence: with hematuria Qualified Code(s): N30.01 - Acute cystitis with hematuria (4) Diabetes Code(s): E11.9 - TYPE 2 DIABETES MELLITUS WITHOUT COMPLICATIONS (5) Functional quadriplegia Code(s): R53.2 - FUNCTIONAL QUADRIPLEGIA (6) HTN (hypertension) Assessment/Plan: on meds monitor Code(s): I10 - ESSENTIAL (PRIMARY) HYPERTENSION (7) Neurogenic bladder Code(s): N31.9 - NEUROMUSCULAR DYSFUNCTION OF BLADDER, UNSPECIFIED (8) Stage 4 decubitus ulcer Code(s): L89.94 - PRESSURE ULCER OF UNSPECIFIED SITE, STAGE 4 (9) Anemia Assessment/Plan: chronic Code(s): D64.9 - ANEMIA, UNSPECIFIED Assessment/Plan COVERING FOR DR RJ WONG
[2020-04-20] MEDS ORDERED: ONDANSETRON 4 MG/2 ML VIAL IVPUSH PRN ×2 (14:32→18:43)
[2020-04-20] MEDS ORDERED: LACTATED RINGERS SOLUTION 1,000 ML IV SCH (14:45)
[2020-04-20] MEDS: LOSARTAN POTASSIUM 50 MG TABLET (FP) PO SCH (14:47)
[2020-04-20] MEDS ORDERED: PROPOFOL 20 ML ONE ×2 (17:31)
[2020-04-20] MEDS ORDERED: LIDOCAINE HCL/PF 2% SDV 5ML VIAL ONE (17:36)
--- NOTE | 2020-04-20 18:13 | OP ---
Operative Note - Note: Operative Date: 04/20/20 Pre-Operative Diagnosis: gross hematuria, lt. pcn Operation: cysto, bladder biopsy and fulgeration and placement of lt. jj stent and d/c of lt. pcn Findings: generalized tcc of bladder and hematuria Post-Operative Diagnosis: Same as Pre-op Anesthesia: General Specimens Removed: bladder tumor and lt. pcn tube Estimated Blood Loss (mls): 10 Drains & Tubes with Location: 24cm-6f lt. jj stent and 24f 30cc sp-soriano Drains, Volume Out (mls): 0 Blood Volume Replaced (mls): 0 Fluid Volume Replaced (mls): 0 Operative Report Dictated: Yes
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
[2020-04-20] MEDS: LACTATED RINGERS SOLUTION 1,000 ML IV SCH (21:02)
[2020-04-21] MEDS: LACTATED RINGERS SOLUTION 1,000 ML IV SCH (06:44)
[2020-04-21 07:33] LABS: BASO % 1.1 % (0-2.0); EOS % 22.1 % (0-4.5); HEMATOCRIT 28.3 % (35.4-49); HEMOGLOBIN 9.2 GM/dL (11.7-16.9); LYMPH % 18.7 % (8-40); MCH 25.3 pg (25.7-33.7); MCHC 32.5 g/dl (32.0-35.9); MEAN CELL VOLUME 77.8 fl (80-96); MEAN PLT VOLUME 6.5 fl (7.5-11.1); MONO % 7.6 % (3.8-10.2); NEUT % 50.5 % (42.8-82.8); PLATELET COUNT 287 K/MM3 (134-434); RBC 3.64 M/mm3 (4.00-5.60); RDW 18.5 % (11.9-15.9); WHITE BLOOD COUNT 7.7 K/mm3 (4.0-10.0)
[2020-04-21 07:45] LABS: ALBUMIN 1.9 g/dl (3.4-5.0); BILIRUBIN,TOTAL 0.3 mg/dL (0.2-1); BLOOD UREA NITROGEN 25.6 mg/dL (7-18); CALCIUM 8.4 mg/dL (8.5-10.1); CREATININE 0.8 mg/dL (0.55-1.3); POTASSIUM 4.6 mmol/L (3.5-5.1); TOT PROT 5.7 g/dl (6.4-8.2)
[2020-04-21] MEDS: LOSARTAN POTASSIUM 50 MG TABLET (FP) PO SCH (09:29)
[2020-04-21] MEDS: AMINO ACIDS/PROTEIN HYDROLYS 30 ML LIQUID.PKT PO SCH ×2 (09:29→17:38)
--- NOTE | 2020-04-21 09:32 | OP ---
DATE OF OPERATION: 04/20/2020 PREOPERATIVE DIAGNOSIS: Gross hematuria and bleeding from left percutaneous nephrostomy. OPERATIVE PROCEDURE: Cystourethroscopy, evacuation of clots, biopsy of bladder lesion, fulguration of bleeders, left retrograde pyelogram, placement of left double-J stent, and removal of left percutaneous nephrostomy tube. ANESTHESIA: General. DESCRIPTION OF PROCEDURE: Under above-stated anesthesia, patient is prepped and draped in the usual sterile manner. He is placed in the dorsal lithotomy position. Patient had a suprapubic tube which was clamped. Cystoscopy via the urethra revealed a normal urethra. Prostatic urethra was wide open. The bladder revealed a large amount of papillary tissue, mostly on the dome and posterior wall. There was some over the left ureteral orifice. After a placing a Glidewire through the papillary lesion, it went up easily up the left renal unit. Therefore, a 24-cm 6-Nepali double-J stent was passed up the left renal unit. A biopsy of the papillary lesion was taken. The area was fulgurated for hemostasis. After the bladder was emptied, the left percutaneous tube was removed per standard method. Pressure dressing was applied. X-rays confirmed good position of the left double-J stent. The suprapubic tube was attached to a drainage bag. The patient tolerated the procedure well. He returned to the recovery room in good condition. Chloe [id number]
[2020-04-21 10:48] LABS: ANISOCYTOSIS 1+; PLATELET ESTIMATE NORMAL
--- NOTE | 2020-04-21 15:25 | PN ---
Progress Note, Physician History of Present Illness: stable s/p post op cysto and jj stent placement - Current Medication List Current Medications: Active Medications Amino Acids (Prosource No Carb Liquid Pkt) 30 ml PO BID@0800,1730 [facility] Last Admin: 04/21/20 09:29 Dose: 30 ml Documented by: Lactated Ringer's (Lactated Ringers Solution) 1,000 mls @ 75 mls/hr IV ASDIR [facility] Last Admin: 04/21/20 06:44 Dose: 75 mls/hr Documented by: Losartan Potassium (Cozaar -) 50 mg PO DAILY [facility] Last Admin: 04/21/20 09:29 Dose: 50 mg Documented by: - Objective Vital Signs: Vital Signs Temperature 97.5 F L 04/21/20 09:40 Pulse Rate 74 04/21/20 09:40 Respiratory Rate 18 04/21/20 09:40 Blood Pressure 130/62 04/21/20 09:40 O2 Sat by Pulse Oximetry (%) 97 04/21/20 09:00 Constitutional: Yes: No Distress, Calm Cardiovascular: Yes: S1, S2 Respiratory: Yes: Regular, CTA Bilaterally Gastrointestinal: Yes: Normal Bowel Sounds, Soft Musculoskeletal: Yes: WNL Extremities: Yes: WNL Neurological: Yes: Alert, Oriented Psychiatric: Yes: Alert, Oriented Labs: CBC, BMP 04/21/20 06:10 04/21/20 06:10 Assessment/Plan Problem List - Problems (1) Chronic suprapubic catheter Code(s): Z93.59 - OTHER CYSTOSTOMY STATUS (2) Nephrostomy tube bleed Code(s): T83.83XA - HEMORRHAGE DUE TO GENITOURINARY PROSTH DEV/GRFT, INIT (3) UTI (urinary tract infection) Code(s): N39.0 - URINARY TRACT INFECTION, SITE NOT SPECIFIED Qualifiers: Urinary tract infection type: acute cystitis Hematuria presence: with hematuria Qualified Code(s): N30.01 - Acute cystitis with hematuria (4) Diabetes Code(s): E11.9 - TYPE 2 DIABETES MELLITUS WITHOUT COMPLICATIONS (5) Functional quadriplegia Code(s): R53.2 - FUNCTIONAL QUADRIPLEGIA (6) HTN (hypertension) Assessment/Plan: on meds monitor Code(s): I10 - ESSENTIAL (PRIMARY) HYPERTENSION (7) Neurogenic bladder Code(s): N31.9 - NEUROMUSCULAR DYSFUNCTION OF BLADDER, UNSPECIFIED (8) Stage 4 decubitus ulcer Code(s): L89.94 - PRESSURE ULCER OF UNSPECIFIED SITE, STAGE 4 (9) UTI (urinary tract infection) Code(s): N39.0 - URINARY TRACT INFECTION, SITE NOT SPECIFIED Qualifiers: Urinary tract infection type: site unspecified Hematuria presence: with hematuria Qualified Code(s): N39.0 - Urinary tract infection, site not specified; R31.9 - Hematuria, unspecified plan continue abx await for finalization of the cx
--- NOTE | 2020-04-21 19:19 | PN ---
Progress Note (short form) - Note Progress Note: Anesthesiology Post-op POD#1 s/p cystoscopy under GA. Pt. doing well. No apparent anesthesia-related issues. VSS. 74 y.o. woman with stable post-operative course. Continue management as per primary team.
--- NOTE | 2020-04-21 21:32 | PN ---
Progress Note, Physician History of Present Illness: No new complaints - Current Medication List Current Medications: Active Medications Amino Acids (Prosource No Carb Liquid Pkt) 30 ml PO BID@0800,1730 [facility]S [facility]CLUDE 234 BEDS AT THE [facility] Last Admin: 04/21/20 17:38 Dose: 30 ml Documented by: Losartan Potassium (Cozaar -) 50 mg PO DAILY [facility] 234 BEDS AT [facility] Last Admin: 04/21/20 09:29 Dose: 50 mg Documented by: - Objective Vital Signs: Vital Signs Temperature 98.4 F 04/21/20 20:39 Pulse Rate 63 04/21/20 20:39 Respiratory Rate 04/21/20 20:39 Blood Pressure 132/57 L 04/21/20 20:39 O2 Sat by Pulse Oximetry (%) 99 04/21/20 20:40 Cardiovascular: Yes: WNL, Regular Rate and Rhythm Respiratory: Yes: WNL, Regular, CTA Bilaterally Gastrointestinal: Yes: Normal Bowel Sounds, Soft, Other ((+) COlostom LLQ) Labs: CBC, BMP 04/21/20 06:10 04/21/20 06:10 Problem List - Problems (1) UTI (urinary tract infection) Assessment/Plan: Cont IV meropenem Urine culture (+) for pseudomonas/enterococcus/morganella/klebsiella Code(s): N39.0 - URINARY TRACT INFECTION, SITE NOT SPECIFIED Qualifiers: Urinary tract infection type: acute cystitis Hematuria presence: with hematuria Qualified Code(s): N30.01 - Acute cystitis with hematuria (2) Chronic suprapubic catheter Assessment/Plan: Replacement of nephrostomy tube S/P Cystoscopy w/ placement of LT JJ stents Code(s): Z93.59 - OTHER CYSTOSTOMY STATUS (3) Anemia Assessment/Plan: Due to chronic dz Monitor H/H Code(s): D64.9 - ANEMIA, UNSPECIFIED (4) HTN (hypertension) Code(s): I10 - ESSENTIAL (PRIMARY) HYPERTENSION (5) Neurogenic bladder Code(s): N31.9 - NEUROMUSCULAR DYSFUNCTION OF BLADDER, UNSPECIFIED (6) Sacral decubitus ulcer, stage IV Code(s): L89.154 - PRESSURE ULCER OF SACRAL REGION, STAGE 4
[2020-04-22] MEDS: AMINO ACIDS/PROTEIN HYDROLYS 30 ML LIQUID.PKT PO SCH ×2 (08:37→18:45)
[2020-04-22] MEDS: LOSARTAN POTASSIUM 50 MG TABLET (FP) PO SCH (09:04)
--- NOTE | 2020-04-22 12:04 | PN ---
Progress Note, Physician History of Present Illness: stable no new issues change of nephrostomy tube - Current Medication List Current Medications: Active Medications Amino Acids (Prosource No Carb Liquid Pkt) 30 ml PO BID@0800,1730 [facility] Last Admin: 04/22/20 08:37 Dose: 30 ml Documented by: Meropenem 1 gm/ Dextrose 100 mls @ 200 mls/hr IVPB Q8H-IV [facility] Losartan Potassium (Cozaar -) 50 mg PO DAILY [facility] Last Admin: 04/22/20 09:04 Dose: 50 mg Documented by: - Objective Vital Signs: Vital Signs Temperature 98.2 F 04/22/20 08:56 Pulse Rate 64 04/22/20 08:56 Respiratory Rate 18 04/22/20 09:00 Blood Pressure 156/73 04/22/20 08:56 O2 Sat by Pulse Oximetry (%) 98 04/22/20 09:00 Constitutional: Yes: No Distress, Calm Cardiovascular: Yes: S1 Respiratory: Yes: Regular, CTA Bilaterally Gastrointestinal: Yes: Normal Bowel Sounds, Soft Genitourinary: Yes: Other (nephrostomy tube) Musculoskeletal: Yes: WNL Extremities: Yes: Other Neurological: Yes: Alert, Oriented Psychiatric: Yes: Alert, Oriented Labs: CBC, BMP 04/21/20 06:10 04/21/20 06:10 Assessment/Plan Problem List - Problems (1) Chronic suprapubic catheter Code(s): Z93.59 - OTHER CYSTOSTOMY STATUS (2) Nephrostomy tube bleed Code(s): T83.83XA - HEMORRHAGE DUE TO GENITOURINARY PROSTH DEV/GRFT, INIT (3) UTI (urinary tract infection) Code(s): N39.0 - URINARY TRACT INFECTION, SITE NOT SPECIFIED Qualifiers: Urinary tract infection type: acute cystitis Hematuria presence: with hematuria Qualified Code(s): N30.01 - Acute cystitis with hematuria (4) Diabetes Code(s): E11.9 - TYPE 2 DIABETES MELLITUS WITHOUT COMPLICATIONS (5) Functional quadriplegia Code(s): R53.2 - FUNCTIONAL QUADRIPLEGIA (6) HTN (hypertension) Assessment/Plan: on meds monitor Code(s): I10 - ESSENTIAL (PRIMARY) HYPERTENSION (7) Neurogenic bladder Code(s): N31.9 - NEUROMUSCULAR DYSFUNCTION OF BLADDER, UNSPECIFIED (8) Stage 4 decubitus ulcer Code(s): L89.94 - PRESSURE ULCER OF UNSPECIFIED SITE, STAGE 4 (9) UTI (urinary tract infection) Code(s): N39.0 - URINARY TRACT INFECTION, SITE NOT SPECIFIED Qualifiers: Urinary tract infection type: site unspecified Hematuria presence: with hematuria Qualified Code(s): N39.0 - Urinary tract infection, site not specified; R31.9 - Hematuria, unspecified plan continue abx await for finalization of the cx
[2020-04-22] MEDS ORDERED: MEROPENEM 1 GM VIAL (RESTRICTED TO ID) IVPB ONE ×2 (13:06→17:58)
[2020-04-22] MEDS ORDERED: DEXTROSE 5%-WATER 100 ML IVPB ONE ×2 (13:06→17:58)
[2020-04-22] MEDS: MEROPENEM 1 GM in DEXTROSE 5%-WATER 100 ML IVPB SCH ×2 (13:19→18:43)
--- NOTE | 2020-04-22 18:29 | PN ---
Progress Note, Physician History of Present Illness: No new complaints - Current Medication List Current Medications: Active Medications Amino Acids (Prosource No Carb Liquid Pkt) 30 ml PO BID@0800,1730 [facility] Last Admin: 04/22/20 08:37 Dose: 30 ml Documented by: Meropenem 1 gm/ Dextrose 100 mls @ 200 mls/hr IVPB Q8H-IV [facility] Last Admin: 04/22/20 13:19 Dose: 200 mls/hr Documented by: Losartan Potassium (Cozaar -) 50 mg PO DAILY [facility] Last Admin: 04/22/20 09:04 Dose: 50 mg Documented by: - Objective Vital Signs: Vital Signs Temperature 97.9 F 04/22/20 14:53 Pulse Rate 80 04/22/20 14:53 Respiratory Rate 20 04/22/20 14:53 Blood Pressure 130/59 L 04/22/20 14:53 O2 Sat by Pulse Oximetry (%) 98 04/22/20 09:00 Cardiovascular: Yes: WNL, Regular Rate and Rhythm Respiratory: Yes: WNL, Regular, CTA Bilaterally Gastrointestinal: Yes: Normal Bowel Sounds, Soft, Other ((+) Colostomy LLQ w/ slight protrusion of ostoma) Musculoskeletal: Yes: Other ((+) Sacral decubitis stage 4) Labs: CBC, BMP 04/21/20 06:10 04/21/20 06:10 Problem List - Problems (1) UTI (urinary tract infection) Assessment/Plan: Cont IV meropenem Urine culture (+) for pseudomonas/enterococcus/morganella/klebsiella Code(s): N39.0 - URINARY TRACT INFECTION, SITE NOT SPECIFIED Qualifiers: Urinary tract infection type: acute cystitis Hematuria presence: with hematuria Qualified Code(s): N30.01 - Acute cystitis with hematuria (2) Chronic suprapubic catheter Assessment/Plan: Replacement of nephrostomy tube S/P Cystoscopy w/ placement of LT JJ stents Code(s): Z93.59 - OTHER CYSTOSTOMY STATUS (3) Anemia Assessment/Plan: Due to chronic dz Monitor H/H Code(s): D64.9 - ANEMIA, UNSPECIFIED (4) HTN (hypertension) Code(s): I10 - ESSENTIAL (PRIMARY) HYPERTENSION (5) Neurogenic bladder Code(s): N31.9 - NEUROMUSCULAR DYSFUNCTION OF BLADDER, UNSPECIFIED (6) Sacral decubitus ulcer, stage IV Code(s): L89.154 - PRESSURE ULCER OF SACRAL REGION, STAGE 4
[2020-04-23] MEDS ORDERED: MEROPENEM 1 GM VIAL (RESTRICTED TO ID) IVPB ONE ×2 (00:33→09:01)
[2020-04-23] MEDS ORDERED: DEXTROSE 5%-WATER 100 ML IVPB ONE ×2 (00:34→09:02)
[2020-04-23] MEDS: MEROPENEM 1 GM in DEXTROSE 5%-WATER 100 ML IVPB SCH ×2 (01:06→09:45)
[2020-04-23] MEDS ORDERED: PT OWN MED DRAWER 7, Y5N ONE ×2 (09:02→14:02)
[2020-04-23] MEDS: AMINO ACIDS/PROTEIN HYDROLYS 30 ML LIQUID.PKT PO SCH ×2 (09:45→19:28)
[2020-04-23] MEDS: LOSARTAN POTASSIUM 50 MG TABLET (FP) PO SCH (09:45)
--- NOTE | 2020-04-23 11:28 | PN ---
Progress Note, Physician History of Present Illness: stable no new issues - Current Medication List Current Medications: Active Medications Amino Acids (Prosource No Carb Liquid Pkt) 30 ml PO BID@0800,1730 [facility] Last Admin: 04/23/20 09:45 Dose: 30 ml Documented by: Losartan Potassium (Cozaar -) 50 mg PO DAILY [facility] Last Admin: 04/23/20 09:45 Dose: 50 mg Documented by: - Objective Vital Signs: Vital Signs Temperature 97.7 F 04/23/20 06:00 Pulse Rate 82 04/23/20 06:00 Respiratory Rate 18 04/23/20 06:00 Blood Pressure 137/76 04/23/20 06:00 O2 Sat by Pulse Oximetry (%) 100 04/22/20 21:00 Constitutional: Yes: No Distress, Calm Cardiovascular: Yes: S1, S2 Respiratory: Yes: Regular, CTA Bilaterally Gastrointestinal: Yes: Normal Bowel Sounds, Soft Musculoskeletal: Yes: WNL Extremities: Yes: Other Neurological: Yes: Alert, Oriented Psychiatric: Yes: Alert, Oriented Labs: CBC, BMP 04/21/20 06:10 04/21/20 06:10 Assessment/Plan Problem List - Problems (1) Chronic suprapubic catheter Code(s): Z93.59 - OTHER CYSTOSTOMY STATUS (2) Nephrostomy tube bleed Code(s): T83.83XA - HEMORRHAGE DUE TO GENITOURINARY PROSTH DEV/GRFT, INIT (3) UTI (urinary tract infection) Code(s): N39.0 - URINARY TRACT INFECTION, SITE NOT SPECIFIED Qualifiers: Urinary tract infection type: acute cystitis Hematuria presence: with hematuria Qualified Code(s): N30.01 - Acute cystitis with hematuria (4) Diabetes Code(s): E11.9 - TYPE 2 DIABETES MELLITUS WITHOUT COMPLICATIONS (5) Functional quadriplegia Code(s): R53.2 - FUNCTIONAL QUADRIPLEGIA (6) HTN (hypertension) Assessment/Plan: on meds monitor Code(s): I10 - ESSENTIAL (PRIMARY) HYPERTENSION (7) Neurogenic bladder Code(s): N31.9 - NEUROMUSCULAR DYSFUNCTION OF BLADDER, UNSPECIFIED (8) Stage 4 decubitus ulcer Code(s): L89.94 - PRESSURE ULCER OF UNSPECIFIED SITE, STAGE 4 (9) UTI (urinary tract infection) Code(s): N39.0 - URINARY TRACT INFECTION, SITE NOT SPECIFIED Qualifiers: Urinary tract infection type: site unspecified Hematuria presence: with hematuria Qualified Code(s): N39.0 - Urinary tract infection, site not specified; R31.9 - Hematuria, unspecified plan continue abx cx results noted will stop meropenam will switch to vanco
[2020-04-23] MEDS: VANCOMYCIN HCL 1,250 MG in DEXTROSE 5%-WATER - 250 ML IVPB SCH ×2 (14:10→19:32)
--- NOTE | 2020-04-23 15:00 | RAPID ---
<César Brito - Last Filed: 04/23/20 18:59> Physical Examination Vital Signs: Vital Signs Temperature 97.7 F 04/23/20 06:00 Pulse Rate 82 04/23/20 06:00 Respiratory Rate 18 04/23/20 06:00 Blood Pressure 137/76 04/23/20 06:00 O2 Sat by Pulse Oximetry (%) 100 04/22/20 21:00 Constitutional: Yes: Anxious, Diaphoresis, Thin HENT: Yes: WNL, Atraumatic Cardiovascular: Yes: WNL, S1, S2 Respiratory: Yes: WNL Gastrointestinal: Yes: Normal Bowel Sounds Edema: No Peripheral Pulses WNL: Yes Integumentary: Yes: WNL, Pressure Ulcer (stage 4 sacral ulcer) Labs: CBC, BMP 04/21/20 06:10 04/21/20 06:10 Rapid Response - Rapid Response Assessment: Rapid response was called. DIRECTOR OF SOCIAL SERVICES responded immediately. Signout from nurse endorsed pt was diaphoretic & erythematous after receiving 1st dose of vancomycin. Pt denies SOB, CP, itchiness, N/V. Likely Adverse side effect of vancomycin. Vancomycin was stopped. Primary was notified. ID was asked to change medications. BP: 205/105 99 14:53 190/79 98 14:58 118/65 99 15:30 96% RM Air Outcome: Notified infectious disease <Carlitos Mayorga - Last Filed: 05/23/20 20:50> Physical Examination Vital Signs: Labs: CBC, BMP 04/21/20 06:10 04/21/20 06:10 Critical Care Total Critical Care Time (in minutes): 30 Critical Care Statement: The care of this patient involved high complexity decision making to prevent further life threatening deterioration of the patient's condition and/or to evaluate & treat vital organ system(s) failure or risk of failure.
--- NOTE | 2020-04-23 22:00 | PN ---
Progress Note, Physician History of Present Illness: Events of today (rapid response) noted - Current Medication List Current Medications: Active Medications Amino Acids (Prosource No Carb Liquid Pkt) 30 ml PO BID@0800,1730 [facility] Last Admin: 04/23/20 19:28 Dose: 30 ml Documented by: Vancomycin HCl 1,250 mg/ (Dextrose) 250 mls @ 166.667 mls/hr IVPB Q24H [facility]; Protocol Last Admin: 04/23/20 19:32 Dose: Not Given Documented by: Losartan Potassium (Cozaar -) 50 mg PO DAILY [facility] Last Admin: 04/23/20 09:45 Dose: 50 mg Documented by: - Objective Vital Signs: Vital Signs Temperature 98.0 F 04/23/20 15:29 Pulse Rate 83 04/23/20 15:29 Respiratory Rate 20 04/23/20 15:29 Blood Pressure 105/58 L 04/23/20 15:29 O2 Sat by Pulse Oximetry (%) 100 04/23/20 09:00 Cardiovascular: Yes: WNL, Regular Rate and Rhythm Respiratory: Yes: WNL, Regular, CTA Bilaterally Gastrointestinal: Yes: Normal Bowel Sounds, Soft, Other ((+) Colostomy LLQ) Labs: CBC, BMP 04/21/20 06:10 04/21/20 06:10 Problem List - Problems (1) UTI (urinary tract infection) Assessment/Plan: DC IV vanco due to reaction (?Red neck syndrome) Repeat urine culture (+) enterococcus feacalis Urine culture (+) for pseudomonas/enterococcus/morganella/klebsiella Code(s): N39.0 - URINARY TRACT INFECTION, SITE NOT SPECIFIED Qualifiers: Urinary tract infection type: acute cystitis Hematuria presence: with hematuria Qualified Code(s): N30.01 - Acute cystitis with hematuria (2) Chronic suprapubic catheter Assessment/Plan: Replacement of nephrostomy tube S/P Cystoscopy w/ placement of LT JJ stents Code(s): Z93.59 - OTHER CYSTOSTOMY STATUS (3) Anemia Assessment/Plan: Due to chronic dz Monitor H/H Code(s): D64.9 - ANEMIA, UNSPECIFIED (4) HTN (hypertension) Code(s): I10 - ESSENTIAL (PRIMARY) HYPERTENSION (5) Neurogenic bladder Code(s): N31.9 - NEUROMUSCULAR DYSFUNCTION OF BLADDER, UNSPECIFIED (6) Sacral decubitus ulcer, stage IV Code(s): L89.154 - PRESSURE ULCER OF SACRAL REGION, STAGE 4
[2020-04-24] MEDS: LOSARTAN POTASSIUM 50 MG TABLET (FP) PO SCH (10:58)
[2020-04-24] MEDS: AMINO ACIDS/PROTEIN HYDROLYS 30 ML LIQUID.PKT PO SCH ×2 (10:58→17:42)
--- NOTE | 2020-04-24 13:19 | PN ---
Progress Note, Physician History of Present Illness: events noted patient had reaction to vanco - Current Medication List Current Medications: Active Medications Amino Acids (Prosource No Carb Liquid Pkt) 30 ml PO BID@0800,1730 [facility] Last Admin: 04/24/20 10:58 Dose: 30 ml Documented by: Vancomycin HCl 1,250 mg/ (Dextrose) 250 mls @ 166.667 mls/hr IVPB Q24H [facility]; Protocol Last Admin: 04/23/20 19:32 Dose: Not Given Documented by: Losartan Potassium (Cozaar -) 50 mg PO DAILY [facility] Last Admin: 04/24/20 10:58 Dose: 50 mg Documented by: - Objective Vital Signs: Vital Signs Temperature 98.1 F 04/24/20 05:28 Pulse Rate 72 04/24/20 05:28 Respiratory Rate 18 04/24/20 05:28 Blood Pressure 115/55 L 04/24/20 05:28 O2 Sat by Pulse Oximetry (%) 100 04/23/20 21:00 Constitutional: Yes: No Distress, Calm Cardiovascular: Yes: S1, S2 Respiratory: Yes: Regular, CTA Bilaterally Gastrointestinal: Yes: Normal Bowel Sounds, Soft Musculoskeletal: Yes: WNL Extremities: Yes: Other Neurological: Yes: Alert, Oriented Psychiatric: Yes: Alert, Oriented Labs: CBC, BMP 04/21/20 06:10 04/21/20 06:10 Assessment/Plan Problem List - Problems (1) Chronic suprapubic catheter Code(s): Z93.59 - OTHER CYSTOSTOMY STATUS (2) Nephrostomy tube bleed Code(s): T83.83XA - HEMORRHAGE DUE TO GENITOURINARY PROSTH DEV/GRFT, INIT (3) UTI (urinary tract infection) Code(s): N39.0 - URINARY TRACT INFECTION, SITE NOT SPECIFIED Qualifiers: Urinary tract infection type: acute cystitis Hematuria presence: with hematuria Qualified Code(s): N30.01 - Acute cystitis with hematuria (4) Diabetes Code(s): E11.9 - TYPE 2 DIABETES MELLITUS WITHOUT COMPLICATIONS (5) Functional quadriplegia Code(s): R53.2 - FUNCTIONAL QUADRIPLEGIA (6) HTN (hypertension) Assessment/Plan: on meds monitor Code(s): I10 - ESSENTIAL (PRIMARY) HYPERTENSION (7) Neurogenic bladder Code(s): N31.9 - NEUROMUSCULAR DYSFUNCTION OF BLADDER, UNSPECIFIED (8) Stage 4 decubitus ulcer Code(s): L89.94 - PRESSURE ULCER OF UNSPECIFIED SITE, STAGE 4 (9) UTI (urinary tract infection) Code(s): N39.0 - URINARY TRACT INFECTION, SITE NOT SPECIFIED Qualifiers: Urinary tract infection type: site unspecified Hematuria presence: with hematuria Qualified Code(s): N39.0 - Urinary tract infection, site not specified; R31.9 - Hematuria, unspecified plan continue abx arceo top deven switched to zyox rest as per the team
[2020-04-24] MEDS: VANCOMYCIN HCL 1,250 MG in DEXTROSE 5%-WATER - 250 ML IVPB SCH (13:44)
[2020-04-24] MEDS: LINEZOLID 100 MG/5 ML BTL (RESTRICTED TO ID) PO SCH ×2 (17:42→22:43)
--- NOTE | 2020-04-24 21:23 | PN ---
Progress Note, Physician History of Present Illness: No new complaints - Current Medication List Current Medications: Active Medications Amino Acids (Prosource No Carb Liquid Pkt) 30 ml PO BID@0800,1730 [facility] Last Admin: 04/24/20 17:42 Dose: 30 ml Documented by: Linezolid (Zyvox Oral Suspension (Restricted To Id) -) 600 mg PO BID [facility] Last Admin: 04/24/20 17:42 Dose: 600 mg Documented by: Losartan Potassium (Cozaar -) 50 mg PO DAILY [facility] Last Admin: 04/24/20 10:58 Dose: 50 mg Documented by: - Objective Vital Signs: Vital Signs Temperature 98.2 F 04/24/20 19:35 Pulse Rate 65 04/24/20 19:35 Respiratory Rate 20 04/24/20 19:35 Blood Pressure 137/72 04/24/20 19:35 O2 Sat by Pulse Oximetry (%) 100 04/24/20 09:00 Cardiovascular: Yes: WNL, Regular Rate and Rhythm Respiratory: Yes: WNL, Regular, CTA Bilaterally Gastrointestinal: Yes: WNL, Normal Bowel Sounds, Soft Labs: CBC, BMP 04/21/20 06:10 04/21/20 06:10 Problem List - Problems (1) UTI (urinary tract infection) Assessment/Plan: DC IV vanco due to reaction (?Red neck syndrome) Repeat urine culture (+) enterococcus feacalis Urine culture (+) for pseudomonas/enterococcus/morganella/klebsiella Cont zyvox DC planning for am Code(s): N39.0 - URINARY TRACT INFECTION, SITE NOT SPECIFIED Qualifiers: Urinary tract infection type: acute cystitis Hematuria presence: with hematuria Qualified Code(s): N30.01 - Acute cystitis with hematuria (2) Chronic suprapubic catheter Assessment/Plan: Replacement of nephrostomy tube S/P Cystoscopy w/ placement of LT JJ stents Code(s): Z93.59 - OTHER CYSTOSTOMY STATUS (3) Anemia Assessment/Plan: Due to chronic dz Monitor H/H Code(s): D64.9 - ANEMIA, UNSPECIFIED (4) HTN (hypertension) Code(s): I10 - ESSENTIAL (PRIMARY) HYPERTENSION (5) Neurogenic bladder Code(s): N31.9 - NEUROMUSCULAR DYSFUNCTION OF BLADDER, UNSPECIFIED (6) Sacral decubitus ulcer, stage IV Assessment/Plan: Cont wound vac as outpt Code(s): L89.154 - PRESSURE ULCER OF SACRAL REGION, STAGE 4
[2020-04-24] MEDS ORDERED: PT OWN MED DRAWER 7, Y5N ONE (21:46)
[2020-04-25] MEDS ORDERED: PT OWN MED DRAWER 7, Y5N ONE (08:28)
[2020-04-25] MEDS: AMINO ACIDS/PROTEIN HYDROLYS 30 ML LIQUID.PKT PO SCH ×2 (08:49→17:24)
[2020-04-25] MEDS: LOSARTAN POTASSIUM 50 MG TABLET (FP) PO SCH (08:59)
[2020-04-25] MEDS: LINEZOLID 100 MG/5 ML BTL (RESTRICTED TO ID) PO SCH (09:00)
--- NOTE | 2020-04-25 11:54 | DS ---
Physical Examination Vital Signs: Vital Signs Temperature 97.9 F 04/25/20 09:00 Pulse Rate 74 04/25/20 09:00 Respiratory Rate 18 04/25/20 09:00 Blood Pressure 122/61 04/25/20 09:00 O2 Sat by Pulse Oximetry (%) 99 04/25/20 09:00 Labs: CBC, BMP 04/21/20 06:10 04/21/20 06:10 Discharge Summary Problems reviewed: Yes Reason For Visit: UTI Current Active Problems Chronic suprapubic catheter (Acute) Nephrostomy tube bleed (Acute) UTI (urinary tract infection) (Acute) Hospital Course: Pt is a 74 yo male with PMH significant for HTN, sacral decubitis, recurrent UTI admitted to hospital with hematuria from left nephrostomy tube (which has cleared since admit to hospital). Pt started on IV antibxs for UTI. Urine culture (+) for [place]/pesudomonas/enterococcus. Pt also has sacral decubiti. Pt was seen by ID and vascular surgeon. Wound vac is to be continued Pt underwent cystoscopy and LT JJ stent placement. Pt is to take Zyvoxx for another 10 days. Condition: Good - Instructions Referrals: Cesar Sutherland MD [Primary Care Provider] - - Home Medications Comprehensive Discharge Medication List: Ambulatory Orders Amino Acids/Protein Hydrolys [Prosource No Carb Liquid Pkt] 30 ml PO BID@0800,1730 #60 packet 03/20/20 Losartan Potassium [Cozaar -] 50 mg PO DAILY #30 tablet 03/20/20
--- NOTE | 2020-04-25 17:37 | PN ---
Progress Note, Physician History of Present Illness: Pt seen. States he feels well. No specific complaints. For d/c today. - Current Medication List Current Medications: Active Medications Amino Acids (Prosource No Carb Liquid Pkt) 30 ml PO BID@0800,1730 [facility] Last Admin: 04/25/20 17:24 Dose: 30 ml Documented by: Linezolid (Zyvox Oral Suspension (Restricted To Id) -) 600 mg PO BID [facility] Last Admin: 04/25/20 09:00 Dose: 600 mg Documented by: Losartan Potassium (Cozaar -) 50 mg PO DAILY [facility] Last Admin: 04/25/20 08:59 Dose: 50 mg Documented by: - Objective Vital Signs: Vital Signs Temperature 97.4 F L 04/25/20 15:33 Pulse Rate 109 H 04/25/20 15:33 Respiratory Rate 20 04/25/20 15:33 Blood Pressure 96/55 L 04/25/20 15:33 O2 Sat by Pulse Oximetry (%) 94 L 04/25/20 15:33 Constitutional: Yes: No Distress, Calm Cardiovascular: Yes: Regular Rate and Rhythm Respiratory: Yes: Regular Gastrointestinal: Yes: Normal Bowel Sounds, Soft Genitourinary: Yes: Other (SPC) Wound/Incision: Yes: Dressing Dry and Intact Neurological: Yes: Alert Labs: CBC, BMP 04/21/20 06:10 04/21/20 06:10 Microbiology 04/19/20 19:05 Blood - Peripheral Venous Blood Culture - Final NO GROWTH AFTER 5 DAYS INCUBATION 04/19/20 19:00 Blood - Peripheral Venous Blood Culture - Final NO GROWTH AFTER 5 DAYS INCUBATION 04/20/20 01:00 Urine - Urine Clean Catch Urine Culture - Final Enterococcus Faecalis 04/16/20 15:07 Urine - Urine Nephrostomy Tube Left Urine Culture - Final Morganella Morganii Pseudomonas Aeruginosa Klebsiella Pneumoniae Enterococcus Faecalis Problem List - Problems (1) Chronic suprapubic catheter Code(s): Z93.59 - OTHER CYSTOSTOMY STATUS (2) Nephrostomy tube bleed Code(s): T83.83XA - HEMORRHAGE DUE TO GENITOURINARY PROSTH DEV/GRFT, INIT (3) UTI (urinary tract infection) Code(s): N39.0 - URINARY TRACT INFECTION, SITE NOT SPECIFIED Qualifiers: Urinary tract infection type: acute cystitis Hematuria presence: with hematuria Qualified Code(s): N30.01 - Acute cystitis with hematuria (4) Anemia Code(s): D64.9 - ANEMIA, UNSPECIFIED (5) Diabetes Code(s): E11.9 - TYPE 2 DIABETES MELLITUS WITHOUT COMPLICATIONS (6) Functional quadriplegia Code(s): R53.2 - FUNCTIONAL QUADRIPLEGIA (7) HTN (hypertension) Code(s): I10 - ESSENTIAL (PRIMARY) HYPERTENSION (8) Hydronephrosis Code(s): N13.30 - UNSPECIFIED HYDRONEPHROSIS Assessment/Plan Complicated UTI Hematuria chronic SPC s/p Nephrostomy removal/ JJ stent placement DM Functional Quadriplegia -- for d/c on Linezolid as discussed -- pt currently stable, afebrile
[2020-04-25 18:05] VITALS: BP 107/53; PULSE 66; TEMP 98.4
--- NOTE | 2020-04-26 17:24 | PATH ---
Surgical Pathology Report Patient Name: MAGNO DE LA TORRE Med. Rec. #: [id number] /Age/Gender: 1945 (Age: 74) / M Account: [id number] Location: [facility] MED/SURG Taken: 04/20/2020 Received: 04/23/2020 Reported: 04/26/2020 Physicians: Mansi Sutherland M.D. Specimen(s) Received BLADDER TUMOR Clinical History History of bladder tumor, gross hematuria Final Diagnosis BLADDER TUMOR, BIOPSY: FRAGMENTS OF UROTHELIAL MUCOSA WITH ATYPIA AND MARKED INFLAMMATION. SEE COMMENT. Comment: Fragments of polypoid and papillary urothelial mucosa with marked acute and chronic inflammation showing slightly thickened epithelium with enlarged nuclei and maturation. Focally Increased mitotic figures are noted. No muscularis propria is present in this material. Immunohistochemical stains show the following results: CK20 are negative, CD44 and p53 show patchy scattered staining, and Ki67 shows variable positivity in the fragments of mucosa. This immunoprofile is indeterminate. In summary, the urothelial atypia in a patient with prior history of bladder tumor is worrisome. Although the presence of maturation and marked inflammation favors a reactive atypia, a neoplastic process cannot be completely ruled out. Suggest clinical correlation and follow up. Operative report has been reviewed. Immunohistochemical stains performed at [facility], [place], [place] ([id number]) interpreted at [facility]. Positive and negative controls (internal if applicable) show appropriate results. Intradepartmental case review concordance of diagnosis, 04/26/2020. Electronically Signed Sathya Rivera M.D. Gross Description Received in formalin labeled "bladder tumor," is a 0.7 x 0.7 x 0.1 cm aggregate of kenney soft tissue fragments. The formalin is filtered and the specimen is entirely submitted in one cassette. DL/04/23/2020 saudi/04/23/2020
== END 2020-04-25 18:15 | disposition home health service (06) | DRG 659 ==
LOC: JER 13:41 → JERBED 18:03 → J7W 04-17 03:44
PROVIDERS: ADMIT Internal Medicine; ATTEND Internal Medicine
PROC: 0TCB8ZZ Extirpation of Matter from Bladder, Via Natural or Artificial Opening Endoscopic (ICD-10-PCS; 2020-04-20)
PROC: 0TP98DZ Removal of Intraluminal Device from Ureter, Via Natural or Artificial Opening Endoscopic (ICD-10-PCS; 2020-04-20)
PROC: BT1FZZZ Fluoroscopy of Left Kidney, Ureter and Bladder (ICD-10-PCS; 2020-04-20)
PROC: 0TBB8ZX Excision of Bladder, Via Natural or Artificial Opening Endoscopic, Diagnostic (ICD-10-PCS; principal; 2020-04-20 13:30)
PROC: 0T778DZ Dilation of Left Ureter with Intraluminal Device, Via Natural or Artificial Opening Endoscopic (ICD-10-PCS; 2020-04-20 13:30)
PROC: 0T5B8ZZ Destruction of Bladder, Via Natural or Artificial Opening Endoscopic (ICD-10-PCS; 2020-04-20 13:30)
DX: T83.83XA Hemorrhage due to genitourinary prosthetic devices, implants and grafts, initial encounter (principal); L89.94 Pressure ulcer of unspecified site, stage 4; G82.50 Quadriplegia, unspecified; N39.0 Urinary tract infection, site not specified; Z16.12 Extended spectrum beta lactamase (ESBL) resistance; I10 Essential (primary) hypertension; R31.0 Gross hematuria; N31.9 Neuromuscular dysfunction of bladder, unspecified; B96.1 Klebsiella pneumoniae [K. pneumoniae] as the cause of diseases classified elsewhere; B96.5 Pseudomonas (aeruginosa) (mallei) (pseudomallei) as the cause of diseases classified elsewhere; B95.2 Enterococcus as the cause of diseases classified elsewhere; D64.9 Anemia, unspecified; Z93.6 Other artificial openings of urinary tract status; Y83.8 Other surgical procedures as the cause of abnormal reaction of the patient, or of later complication, without mention of misadventure at the time of the procedure; Z93.1 Gastrostomy status; Z93.3 Colostomy status; E11.9 Type 2 diabetes mellitus without complications
CPT/HCPCS: 36415; 50435; 74178-TC; 76000-TC-FY; 76775-TC; 80053; 81003; 82962; 85025; 87040; 87086; 87186; 88305-TC; 93005; 93010; 94760; 99285-25; A4358; C1769; C1887; J2020; Q9967; U0003

== ENCOUNTER 2020-06-18 06:42 | Inpatient (IN) | payer MEDICARE, OTHER ==
[2020-06-18 06:48] VITALS: BMI 23.5
--- NOTE | 2020-06-18 07:16 | PDOC ---
History of Present Illness - General Chief Complaint: Pain Stated Complaint: ABDOMINAL PAIN Time Seen by Provider: 06/18/20 07:15 - History of Present Illness Initial Comments: 06/18/20 07:16 74yM w PMHx sigmoid volvulus s/p colostomy, sacral ulcer s/p wound vac, quadriplegic, HTN, neurogenic bladder s/p suprapubic catheter and L nephrostomy tube, ESBL UTI presenting today with 2 weeks of lower abdominal pain and vomiting worse today. The patient admits to some shortness of breath as well but denies fever. cough with phlegm or any other symptoms. ROS GENERAL/CONSTITUTIONAL: No fever or chills. No weakness. HEAD, EYES, EARS, NOSE AND THROAT: No change in vision. No ear pain or discharge. No sore throat. CARDIOVASCULAR: No chest pain + shortness of breath RESPIRATORY: No cough, wheezing, or hemoptysis. GASTROINTESTINAL: + nausea, vomiting, + colostomy bag GENITOURINARY: No dysuria, frequency, or change in urination. MUSCULOSKELETAL: No joint or muscle swelling or pain. No neck or back pain. SKIN: No rash NEUROLOGIC: No headache, vertigo, loss of consciousness, or change in strength/sensation. ENDOCRINE: No increased thirst. No abnormal weight change HEMATOLOGIC/LYMPHATIC: No anemia, easy bleeding, or history of blood clots. ALLERGIC/IMMUNOLOGIC: No hives or skin allergy. PE GENERAL: Awake, alert, and fully oriented, in no acute distress HEAD: No signs of trauma, normocephalic, atraumatic EYES: EOMI, sclera anicteric, conjunctiva clear ENT: oropharynx clear without exudates. Moist mucosa NECK: Normal ROM, supple LUNGS: No distress, speaks full sentences, clear to auscultation anteriorly HEART: Regular rate and rhythm, normal S1 and S2, no murmurs, rubs or gallops, peripheral pulses normal and equal bilaterally. ABDOMEN: Soft, + mod distention, LLQ > RLQ ttp No guarding, no rebound. No masses EXTREMITIES : + quadriplegia, No clubbing or cyanosis. NEUROLOGICAL: quadriplegia SKIN: Warm, Dry, normal turgor, no rashes or lesions noted Assessment and Plan 74yM w PMHx sigmoid volvulus s/p colostomy, sacral ulcer s/p wound vac, quadriplegic, HTN, neurogenic bladder s/p suprapubic catheter and L nephrostomy tube, ESBL UTI presenting today with 2 weeks of lower abdominal pain and vomiting worse today consider uti vs colitis vs partial sbo sob r/o pna vs ptx vs covid W/U: - cbc, cmp, trop, lactic, ekg, cxr - ct abd pelvis dosed zofran, ivf and tylenol Patient with elevated lactic to 2.6, and sonia CT AP with po contrast and no IV contrast cannot tolerate po contrast -will scan with whatever oral contrast he was able to keep down EKG: nsr at 72bpm, QTC 410 CXR: abdominal distention and large bowel CT with distal SBO Case discussed between attendign adn Dr. Quintero, recommends NPO and ng tube Pt admitted to Dr. Marcos Adame, PGY3 Emergency Medicine Past History - Medical History Allergies/Adverse Reactions: Allergies Allergy/AdvReac Type Severity Reaction Status Date / Time ciprofloxacin Allergy Verified 06/18/20 06:47 piperacillin [From Zosyn] Allergy Verified 06/18/20 06:47 tazobactam [From Zosyn] Allergy Verified 06/18/20 06:47 vancomycin AdvReac Severe red man Verified 06/18/20 06:47 syndrome Penicillins AdvReac Verified 06/18/20 06:47 Home Medications: Ambulatory Orders Amino Acids/Protein Hydrolys [Prosource No Carb Liquid Pkt] 30 ml PO BID@0800,1730 #60 packet 03/20/20 Losartan Potassium [Cozaar -] 50 mg PO DAILY #30 tablet 03/20/20 Linezolid Oral Suspension [Zyvox Oral Suspension (Restricted To Id) -] 600 mg PO BID #100 ml 04/25/20 Anemia: Yes Asthma: No Cancer: No Cardiac Disorders: No CVA: No COPD: No CHF: No Dementia: No Diabetes: Yes GI Disorders: No Disorders: Yes (neurogenic bladder, suprapubic catheter) HTN: Yes Hypercholesterolemia: No Liver Disease: No Seizures: No Thyroid Disease: No - Surgical History Abdominal Surgery: Yes (Colon resection with Colostomy bag) Cardiac Surgery: Yes (IVC filter) GI Surgery: Yes (colostomy) - Immunization History Immunization Up to Date: No - Psycho-Social/Smoking History Smoking History: Never smoked Have you smoked in the past 12 months: No Information on smoking cessation initiated: No - Substance Abuse Hx (Audit-C & DAST Scrn) How often the patient has a drink containing alcohol: Never Score: In Men: 4 or > Positive; In Women: 3 or > Positive: 0 Screen Result (Pos requires Nsg. Audit-10AR): Negative In the last yr the pt used illegal drug/Rx for NonMed reason: No Score: Yes response is considered Positive: 0 Screen Result (Positive result requires Nsg. DAST-10): Negative *Physical Exam - Vital Signs Last Vital Signs Temp Pulse Resp BP Pulse Ox 98.6 F 88 17 121/65 100 06/18/20 06:46 06/18/20 06:46 06/18/20 06:46 06/18/20 06:46 06/18/20 06:46 ED Treatment Course - LABORATORY CBC & Chemistry Diagram: 06/23/20 09:20 06/25/20 06:40 Discharge - Discharge Information Problems reviewed: Yes Clinical Impression/Diagnosis: SBO (small bowel obstruction) - Follow up/Referral - Patient Discharge Instructions - Post Discharge Activity
[2020-06-18] MEDS ORDERED: ONDANSETRON 4 MG/2 ML VIAL IVPUSH ONE ×2 (07:24→08:39)
[2020-06-18] MEDS ORDERED: SODIUM CHLORIDE 1,000 ML IV SCH (07:30)
[2020-06-18] MEDS ORDERED: ACETAMINOPHEN 1000 MG/100 ML VIAL (NON FORMULARY) IVPB ONE (07:52)
[2020-06-18] MEDS ORDERED: ACETAMINOPHEN INJECTION 100 ML IVPB ONE (07:55)
[2020-06-18 08:28] LABS: BASO % 0.4 % (0-2.0); EOS % 0.1 % (0-4.5); HEMATOCRIT 38.6 % (35.4-49); HEMOGLOBIN 12.2 GM/dL (11.7-16.9); LYMPH % 7.3 % (8-40); MCH 25.3 pg (25.7-33.7); MCHC 31.7 g/dl (32.0-35.9); MEAN PLT VOLUME 6.9 fl (7.5-11.1); MONO % 3.4 % (3.8-10.2); NEUT % 88.8 % (42.8-82.8); PLATELET COUNT 393 K/MM3 (134-434); RBC 4.82 M/mm3 (4.00-5.60); RDW 20.4 % (11.9-15.9); WHITE BLOOD COUNT 8.3 K/mm3 (4.0-10.0)
[2020-06-18 08:48] LABS: ALBUMIN 3.1 g/dl (3.4-5.0); ALK PHOS 104 U/L (45-117); ANION GAP 12 MMOL/L (8-16); BILIRUBIN,TOTAL 0.4 mg/dL (0.2-1); BLOOD UREA NITROGEN 26.9 mg/dL (7-18); CALCIUM 9.7 mg/dL (8.5-10.1); CHLORIDE 106 mmol/L (98-107); CO2 21 mmol/L (21-32); CREATININE 1.6 mg/dL (0.55-1.3); GLUCOSE,RANDOM 163 mg/dL (74-106); POTASSIUM 5.3 mmol/L (3.5-5.1); SGOT/AST 22 U/L (15-37); SGPT/ALT 24 U/L (13-61); SODIUM 139 mmol/L (136-145); TOT PROT 7.9 g/dl (6.4-8.2)
[2020-06-18] MEDS ORDERED: MEROPENEM 1 GM in DEXTROSE 5%-WATER 100 ML IVPB ONE (10:20)
--- NOTE | 2020-06-18 10:46 | PDOC ---
Documentation entered by Ramana Greenberg SCRIBE, acting as scribe for Mallory Fried MD. Mallory Fried MD: This documentation has been prepared by the hernandoe, Ramana Greenberg SCRIBE, under my direction and personally reviewed by me in its entirety. I confirm that the documentation accurately reflects all work, treatment, procedures, and medical decision making performed by me. Attending Attestation - Resident Resident Name: Gina Adame - ED Attending Attestation I have performed the following: I have examined & evaluated the patient, The case was reviewed & discussed with the resident, I agree w/resident's findings & plan, Exceptions are as noted - HPI HPI: 06/18/20 09:41 74 year old male with a significant past medical history of quadriplegia, DM, HTN, sigmoid volvulus (Colostomy) 09/2019 dr landers, neurogenic bladder (suprapubic catheter and left nephrostomy tube), ESBL UTI, and sacral ulcer s/p wound vac who presents to the emergency department for evaluation of worsening lower abdominal pain and vomiting that began two weeks ago. The patient also reports shortness of breath. no cough no phelgm, no fevers. c/o lower abd pain/distension lives at home with 24 hour home health nurse. The patient denies chest/back pain, cough, and shortness of breath. Denies fever, chills, or any symptoms. Denies any other symptoms. Allergies: ciprofloxacin, piperacillin, tazobactam, vancomycin, penicillins Social Hx: None reported Surgical Hx: colon resection with colostomy bag, IVC filter 06/18/20 10:40 - Physicial Exam PE: 06/18/20 10:43 awake alert lungs clear bilat heart rrr no mrg abd distended, hard, ostomy bag wtih leaking contents, suprapubic cathetar in place. skin sacral decub, malodorous. ext wwp. no edema. pt awake alert oriented - Medical Decision Making 06/18/20 10:44 74 yo male with h/o quadriplegia, colostomy, nephrostomy, suprapubic cath and sacaral decub with lower abd pain, n/v. differential sbo, uti, pyelo sepsis. wound infection. pna, plan ekg labs cxr ct a/p . no contrast given due to creatinine 1.6. will cover for obvious uti, nephrostomy with cloud urine. meropenem given, pt mult allergies. ct a/p pending. 06/18/20 13:10 pt with uti, distal sbo on ct ap. d/w dr landers, recommend NG tube npo will see in hospital. d/w dr fan for admission. will consult dr Rigoberto cazares, pt urologist. Heart Score/ECG Review #1 General ECG Interpretation: Sinus Rhythm, Normal Rate, Normal Intervals, No acute ischemic changes Compared to previous ECG there are: No significant change (comparison 04/16. rate 71 TWI V4 - V6) Discharge - Discharge Information Problems reviewed: Yes Clinical Impression/Diagnosis: SBO (small bowel obstruction) Condition: Good - Follow up/Referral - Patient Discharge Instructions - Post Discharge Activity
[2020-06-18] MEDS ORDERED: MEROPENEM 1 GM VIAL (RESTRICTED TO ID) IVPB ONE (11:09)
[2020-06-18 11:10] LABS: EPI CELLS >36 /uL (0-25.1); HYALINE CASTS 724 /uL (0-3.1); PH,URINE 8.5 (5.0-8.0); URINE APPEARANCE Turbid; URINE BACTERIA >9,000 /uL (0-1359); URINE BILIRUBIN Negative (NEGATIVE); URINE COLOR Orange; URINE GLUCOSE (UA) Negative (NEGATIVE); URINE KETONE Negative (NEGATIVE); URINE LEUK ESTERASE Large (NEGATIVE); URINE NITRITE POSITIVE (NEGATIVE); URINE PROTEIN 300 (NEGATIVE); URINE WBC 20570 /uL (0-25.8)
[2020-06-18] MEDS ORDERED: METOCLOPRAMIDE HCL INJECTION 10 MG/2 ML VIAL IVPUSH ONE (11:53)
[2020-06-18] MEDS ORDERED: METOCLOPRAMIDE HCL INJECTION 10 MG/2 ML VIAL ONE (12:01)
[2020-06-18 15:59] LABS: URINE CRYSTALS NONE SEEN /hpf; YEAST NONE SEEN (NEGATIVE)
[2020-06-18 16:00] LABS: URINE RBC 1237.4 /uL (0-23.9)
--- NOTE | 2020-06-18 21:21 | EKG ---
Test Reason : Blood Pressure : / mmHG Vent. Rate : 071 BPM Atrial Rate : 071 BPM P-R Int : 142 ms QRS Dur : 102 ms QT Int : 378 ms P-R-T Axes : 072 084 095 degrees QTc Int : 410 ms NORMAL SINUS RHYTHM NONSPECIFIC T WAVE ABNORMALITY ABNORMAL ECG WHEN COMPARED WITH ECG OF 16-APR-2020 16:14, T WAVE VARIATION Confirmed by ILDA GUERRIER MD ([id number]) on 06/18/2020 9:21:22 PM Referred By: Confirmed By:ILDA GUERRIER MD
[2020-06-18] MEDS ORDERED: MEROPENEM 500 MG in DEXTROSE 5%-WATER 100 ML IVPB SCH (23:15)
[2020-06-18] MEDS ORDERED: ACETAMINOPHEN 1000 MG/100 ML VIAL (NON FORMULARY) IVPB PRN (23:16)
[2020-06-18] MEDS: ONDANSETRON 4 MG/2 ML VIAL IVPUSH PRN (23:31)
[2020-06-19] MEDS ORDERED: MEROPENEM 500 MG VIAL (RESTRICTED TO ID) IVPB ONE ×2 (00:10→10:52)
[2020-06-19] MEDS: MEROPENEM 500 MG in DEXTROSE 5%-WATER 100 ML IVPB SCH ×2 (00:19→10:50)
[2020-06-19] MEDS: DEXTROSE 5%-0.45% SALINE 1,000 ML IV SCH (01:50)
[2020-06-19] MEDS ORDERED: morphine CARPU-JECT 4 MG/1 ML DISP.SYRIN IVPUSH ONE (06:07)
[2020-06-19] MEDS ORDERED: MORPHINE SULFATE 2 MG/ML VIAL ONE (06:12)
[2020-06-19] MEDS: ONDANSETRON 4 MG/2 ML VIAL IVPUSH PRN ×2 (06:30→21:58)
[2020-06-19 07:22] LABS: BASO % 0.2 % (0-2.0); EOS % 0.1 % (0-4.5); HEMATOCRIT 36.2 % (35.4-49); HEMOGLOBIN 11.6 GM/dL (11.7-16.9); LYMPH % 7.5 % (8-40); MCH 25.4 pg (25.7-33.7); MEAN CELL VOLUME 79.4 fl (80-96); MEAN PLT VOLUME 6.9 fl (7.5-11.1); MONO % 7.8 % (3.8-10.2); NEUT % 84.4 % (42.8-82.8); PLATELET COUNT 439 K/MM3 (134-434); RBC 4.56 M/mm3 (4.00-5.60); RDW 20.5 % (11.9-15.9); WHITE BLOOD COUNT 12.6 K/mm3 (4.0-10.0)
[2020-06-19 07:55] LABS: ALBUMIN 2.8 g/dl (3.4-5.0); BILIRUBIN,TOTAL 0.4 mg/dL (0.2-1); BLOOD UREA NITROGEN 36.9 mg/dL (7-18); CALCIUM 8.6 mg/dL (8.5-10.1); CREATININE 2.5 mg/dL (0.55-1.3); POTASSIUM 4.9 mmol/L (3.5-5.1); TOT PROT 6.8 g/dl (6.4-8.2)
--- NOTE | 2020-06-19 09:20 | CONS ---
DATE OF CONSULTATION: DATE OF DICTATION: 06/18/2020 Patient is a 74-year-old male who presents with worsening lower abdominal pain and vomiting for the past 2 weeks. He also reports shortness of breath. He claims that the lower abdomen has also increased in girth. The patient does have history of quadriplegia as well as neurogenic bladder, high blood pressure, had a sigmoid volvulus, which she underwent a colectomy 1 year ago. His neurogenic bladder required a suprapubic tube. Patient last month presented with severe left hydroureteronephrosis and underwent a left percutaneous nephrostomy. Presently he has an ESBL UTI. He also has sacral ulcers for which he has a wound VAC. He denies any chest pain, chills, or fever. He is ALLERGIC to CIPRO, PIPERACILLIN, TAZOBACTAM, VANCOMYCIN, and PENICILLIN. He has also undergone an IVC filter. The patient appears to have cloudy urine. His percutaneous tube also appeared to be partially obstructed with cloudy urine drainage. His urine C and S is pending. Presently his white count was 8.3, hemoglobin 12.2/hematocrit 38.8. His BUN 26.9/creatinine 1.6. His T-max is 98.6. His blood pressure is 116/80; the pulse is 86, the respirations are 20. IMPRESSION: At present is urinary tract infection, possible left pyelonephritis. PLAN: We will recommend Interventional Radiology for readjustment or possible change of left perc. We will change patient's suprapubic catheter prior to discharge. We will follow with you. Chloe [id number]
--- NOTE | 2020-06-19 09:33 | CONSULT ---
<Akanksha Peters - Last Filed: 06/19/20 22:44> - Consultation REQUESTING PROVIDER: CONSULT REQUEST: We have been asked to surgically evaluate this patient for abd pain, nausea and emesis. Hospitalist:Katy Rodríguez HISTORY OF PRESENT ILLNESS:The patient is a 74 yo male well known to the surgical service for care of repeat nausea and emesis and surgery this past year with end colosotmy. THe patient states that he is having abd pain today with e mesis. THe pain has been progressive over the past several weeks. Some SOB today, no cough. Denies fevers. PMHx: quadriplegia, DM, HTN, sigmoid volvulus neurogenic bladder, ESBL UTI, and sacral ulcer PSHx: colostomy 09/2019, s/p suprapubic catheter and left nephrostomy tube Home Medications Medication Instructions Recorded Amino Acids/Protein Hydrolys 30 ml PO BID@0800,1730 #60 packet 03/20/20 [Prosource No Carb Liquid Pkt] Losartan Potassium [Cozaar -] 50 mg PO DAILY #30 tablet 03/20/20 Linezolid Oral Suspension [Zyvox 600 mg PO BID #100 ml 04/25/20 Oral Suspension (Restricted To Id) -] Allergies Allergy/AdvReac Type Severity Reaction Status Date / Time ciprofloxacin Allergy Verified 06/18/20 06:47 piperacillin [From Zosyn] Allergy Verified 06/18/20 06:47 tazobactam [From Zosyn] Allergy Verified 06/18/20 06:47 vancomycin AdvReac Severe red man Verified 06/18/20 06:47 syndrome Penicillins AdvReac Verified 06/18/20 06:47 REVIEW OF SYSTEMS: CONSTITUTIONAL: Absent: fever, chills CARDIOVASCULAR: Absent: chest pain, syncope RESPIRATORY: Absent: cough, shortness of breath GASTROINTESTINAL: Absent: abdominal pain, abdominal distension, nausea PHYSICAL EXAM: GENERAL: Awake, alert, and appears uncomfortable. HEAD: Normal with no signs of trauma. ABDOMEN: Distended, tympanic to palpation with diffuse tenderness. No rebound or guarding. Ostomy with no flatus or BM. [place]. no stool with exam of ostomy. PSYCH: Cooperative. Good eye contact. Appropriate mood and affect. SKIN: Warm, dry, normal turgor, no rashes or lesions noted. Vital Signs Temperature 97.6 F 06/19/20 09:27 Pulse Rate 79 06/19/20 09:27 Respiratory Rate 18 06/19/20 09:27 Blood Pressure 110/64 06/19/20 09:27 O2 Sat by Pulse Oximetry (%) 100 06/19/20 09:27 Lab Results WBC 12.6 K/mm3 (4.0-10.0) H 06/19/20 06:09 RBC 4.56 M/mm3 (4.00-5.60) 06/19/20 06:09 Hgb 11.6 GM/dL (11.7-16.9) L 06/19/20 06:09 Hct 36.2 % (35.4-49) 06/19/20 06:09 MCV 79.4 fl (80-96) L 06/19/20 06:09 MCHC 32.0 g/dl (32.0-35.9) 06/19/20 06:09 RDW 20.5 % (11.9-15.9) H 06/19/20 06:09 Plt Count 439 K/MM3 (134-434) H 06/19/20 06:09 Sodium 138 mmol/L (136-145) 06/19/20 06:09 Potassium 4.9 mmol/L (3.5-5.1) 06/19/20 06:09 Chloride 106 mmol/L (98-107) 06/19/20 06:09 Carbon Dioxide 22 mmol/L (21-32) 06/19/20 06:09 Anion Gap 10 MMOL/L (8-16) 06/19/20 06:09 BUN 36.9 mg/dL (7-18) H 06/19/20 06:09 Creatinine 2.5 mg/dL (0.55-1.3) H 06/19/20 06:09 Random Glucose 151 mg/dL (74-106) H 06/19/20 06:09 Calcium 8.6 mg/dL (8.5-10.1) 06/19/20 06:09 Laboratory Tests 06/18/20 06/18/20 08:00 13:09 Urine Protein 300 Urine Glucose (UA) Negative Urine Ketones Negative Urine Blood Large Urine Nitrite Positive H Urine Bilirubin Negative Urine Urobilinogen 1.0 Ur Leukocyte Esterase Large Urine WBC (Auto) 84477 COVID-19 (ORTIZ) Not detected CT scan 06/18 without oral/iv contrast: fluid filled small bowel with, fluid filled RIH. AXR: dilated SB. NGT in place. Microbiology 06/18/20 14:10 Back Gram Stain - Final 06/18/20 08:00 Urine - Urine Rowe Urine Culture - Final Contaminated: Please Repeat 06/18/20 14:10 Back Wound Culture - Preliminary Non Lactose Fermenting Gnb Non Lactose Fermenting Gnb#2 Lactose Fermenting Neg Bacilli Lactose Fermenting Neg Bacilli#2 Problem List - Problems (1) Abdominal distension Assessment/Plan: 18 fr Ngt placed today in the ER This am and secured at 60cm after 500 ml bilious material returned and air auscultated over the stomach. Repeat xray revealed ngt in place recommend daily xrays. IV hydration. He had an increase in his BUN/Cret and urology requesting change of left per tube IV abx for UTI D/w Dr. Quintero Problems reviewed: Yes Code(s): R14.0 - ABDOMINAL DISTENSION (GASEOUS) <Chapo Quintero - Last Filed: 07/03/20 08:24> - Consultation Attending Surgeon: I personally saw and examined the patient. My examination reveals a patient with a recurrent small bowel obstruction. I discussed the case with the surgical PA and agree with their findings and plan of care with any exceptions as noted. ~ Chapo Quintero MD, FACS
[2020-06-19] MEDS ORDERED: LOSARTAN POTASSIUM 50 MG TABLET (FP) ONE (10:06)
[2020-06-19] MEDS ORDERED: HEPARIN NA (PORCINE) 5,000 UNITS/ML 1ML VIAL ONE (10:07)
[2020-06-19] MEDS: HEPARIN NA (PORCINE) 5,000 UNITS/ML 1ML VIAL SQ SCH ×2 (10:48→21:55)
[2020-06-19] MEDS: LOSARTAN POTASSIUM 50 MG TABLET (FP) PO SCH (10:48)
[2020-06-19 12:37] LABS: ANISOCYTOSIS 1+; MACROCYTOSIS 0; PLATELET ESTIMATE NORMAL
--- NOTE | 2020-06-19 16:26 | HP ---
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 The patient also reports shortness of breath. no cough no phelgm, no fevers. c/o lower abd pain/distension lives at home with 24 hour home health nurse. The patient denies chest/back pain, cough, and shortness of breath. Denies fever , chills, or any symptoms. Denies any other symptoms. 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 ) Cardiovascular: Yes: HTN Renal/: Yes: Hematuria, Neurogenic Bladder Infectious Disease: Yes: Other (ESBL/Pseudomonas- Urine) Musculoskeletal: Yes: Other (Quadriplegia) Endocrine: Yes: Diabetes Mellitus - Smoking History Smoking history: Never smoked Have you smoked in the past 12 months: No - Alcohol/Substance Use Hx Alcohol Use: No History of Substance Use: reports: None - Social History ADL: Support Services History of Recent Travel: No Home Medications - Allergies Allergies/Adverse Reactions: Allergies Allergy/AdvReac Type Severity Reaction Status Date / Time ciprofloxacin Allergy Verified 06/18/20 06:47 piperacillin [From Zosyn] Allergy Verified 06/18/20 06:47 tazobactam [From Zosyn] Allergy Verified 06/18/20 06:47 vancomycin AdvReac Severe red man Verified 06/18/20 06:47 syndrome Penicillins AdvReac Verified 06/18/20 06:47 - Home Medications Home Medications: Ambulatory Orders Amino Acids/Protein Hydrolys [Prosource No Carb Liquid Pkt] 30 ml PO BID@0800,1730 #60 packet 03/20/20 Losartan Potassium [Cozaar -] 50 mg PO DAILY #30 tablet 03/20/20 Linezolid Oral Suspension [Zyvox Oral Suspension (Restricted To Id) -] 600 mg PO BID #100 ml 04/25/20 Physical Examination Vital Signs: Vital Signs Temperature 97.9 F 06/19/20 13:35 Pulse Rate 75 06/19/20 13:35 Respiratory Rate 19 06/19/20 13:35 Blood Pressure 115/62 06/19/20 13:35 O2 Sat by Pulse Oximetry (%) 100 06/19/20 13:35 Constitutional: Yes: Anxious HENT: Yes: Atraumatic Neck: Yes: Supple Cardiovascular: Yes: Regular Rate and Rhythm Respiratory: Yes: CTA Bilaterally Gastrointestinal: Yes: Hypoactive Bowel Sounds, Tenderness (mild diffuse) Extremities: Yes: WNL Neurological: Yes: Alert, Oriented Labs: CBC, BMP 06/19/20 06:09 06/19/20 06:09 Imaging - Results Cat Scan: Report Reviewed Problem List - Problems (1) Abdominal distension Assessment/Plan: ngt in place gi and surgical Eval Code(s): R14.0 - ABDOMINAL DISTENSION (GASEOUS) (2) Abdominal pain Assessment/Plan: npo ivf prn pain meds Code(s): R10.9 - UNSPECIFIED ABDOMINAL PAIN Qualifiers: Abdominal location: generalized Qualified Code(s): R10.84 - Generalized abdominal pain (3) Chronic suprapubic catheter Code(s): Z93.59 - OTHER CYSTOSTOMY STATUS (4) Diabetes Assessment/Plan: monitor bgms npo Code(s): E11.9 - TYPE 2 DIABETES MELLITUS WITHOUT COMPLICATIONS (5) Functional quadriplegia Code(s): R53.2 - FUNCTIONAL QUADRIPLEGIA (6) HTN (hypertension) Assessment/Plan: on meds monitor Code(s): I10 - ESSENTIAL (PRIMARY) HYPERTENSION (7) SBO (small bowel obstruction) Assessment/Plan: npo ngt prn zofran prn pain meds Code(s): K56.609 - UNSP INTESTNL OBST, UNSP TO PARTIAL VERSUS COMPLETE OBST (8) Sacral decubitus ulcer, stage IV Code(s): L89.154 - PRESSURE ULCER OF SACRAL REGION, STAGE 4 (9) Severe malnutrition Code(s): E43 - UNSPECIFIED SEVERE PROTEIN-CALORIE MALNUTRITION Assessment/Plan Laboratory Tests 06/18/20 06/18/20 06/18/20 08:00 08:00 08:00 WBC 8.3 RBC 4.82 Hgb 12.2 Hct 38.6 D MCV 80.0 MCH 25.3 L MCHC 31.7 L RDW 20.4 H Plt Count 393 D MPV 6.9 L Absolute Neuts (auto) 7.4 Neutrophils % 88.8 H D Lymphocytes % 7.3 L D Monocytes % 3.4 L Eosinophils % 0.1 D Basophils % 0.4 Nucleated RBC % 0 Hypochromia Platelet Estimate Polychromasia Poikilocytosis Anisocytosis Microcytosis Macrocytosis Sodium 139 Potassium 5.3 H Chloride 106 Carbon Dioxide 21 Anion Gap 12 BUN 26.9 H Creatinine 1.6 H Est GFR (CKD-EPI)AfAm 47.79 Est GFR (CKD-EPI)NonAf 41.23 Random Glucose 163 H Lactic Acid 2.6 H* Calcium 9.7 Total Bilirubin 0.4 AST 22 ALT 24 Alkaline Phosphatase 104 Troponin I < 0.02 Total Protein 7.9 Albumin 3.1 L Lipase Urine Color Urine Appearance Urine pH Ur Specific [place] Urine Protein Urine Glucose (UA) Urine Ketones Urine Blood Urine Nitrite Urine Bilirubin Urine Urobilinogen Ur Leukocyte Esterase Urine WBC (Auto) Urine RBC (Auto) Urine Casts (Auto) U Pathogenic Cast Auto U Epithel Cells (Auto) U Sm Round Cell (Auto) Urine Crystals (Auto) Urine Bacteria (Auto) Urine Yeast (Auto) COVID-19 (ORTIZ) 06/18/20 06/18/20 06/18/20 08:00 08:00 13:09 WBC RBC Hgb Hct MCV MCH MCHC RDW Plt Count MPV Absolute Neuts (auto) Neutrophils % Lymphocytes % Monocytes % Eosinophils % Basophils % Nucleated RBC % Hypochromia Platelet Estimate Polychromasia Poikilocytosis Anisocytosis Microcytosis Macrocytosis Sodium Potassium Chloride Carbon Dioxide Anion Gap BUN Creatinine Est GFR (CKD-EPI)AfAm Est GFR (CKD-EPI)NonAf Random Glucose Lactic Acid Calcium Total Bilirubin AST ALT Alkaline Phosphatase Troponin I Total Protein Albumin Lipase 58 L Urine Color [place] Urine Appearance Turbid Urine pH 8.5 H Ur Specific [place] 1.020 Urine Protein 300 Urine Glucose (UA) Negative Urine Ketones Negative Urine Blood Large Urine Nitrite Positive H Urine Bilirubin Negative Urine Urobilinogen 1.0 Ur Leukocyte Esterase Large Urine WBC (Auto) 34149 Urine RBC (Auto) 1237.4 Urine Casts (Auto) 724 U Pathogenic Cast Auto None seen U Epithel Cells (Auto) >36 U Sm Round Cell (Auto) None seen Urine Crystals (Auto) None seen Urine Bacteria (Auto) >9,000 Urine Yeast (Auto) None seen COVID-19 (ORTIZ) Not detected 06/19/20 06/19/20 06/19/20 06:09 06:09 06:09 WBC 12.6 H RBC 4.56 Hgb 11.6 L Hct 36.2 MCV 79.4 L MCH 25.4 L MCHC 32.0 RDW 20.5 H Plt Count 439 H MPV 6.9 L Absolute Neuts (auto) 10.6 H Neutrophils % 84.4 H Lymphocytes % 7.5 L Monocytes % 7.8 D Eosinophils % 0.1 Basophils % 0.2 Nucleated RBC % 0 Hypochromia 0 Platelet Estimate Normal Polychromasia 0 Poikilocytosis 0 Anisocytosis 1+ Microcytosis 0 Macrocytosis 0 Sodium 138 Potassium 4.9 Chloride 106 Carbon Dioxide 22 Anion Gap 10 BUN 36.9 H Creatinine 2.5 H Est GFR (CKD-EPI)AfAm 27.86 Est GFR (CKD-EPI)NonAf 24.04 Random Glucose 151 H Lactic Acid 2.0 Calcium 8.6 Total Bilirubin 0.4 AST 14 L ALT 17 Alkaline Phosphatase 89 Troponin I Total Protein 6.8 Albumin 2.8 L Lipase Urine Color Urine Appearance Urine pH Ur Specific [place] Urine Protein Urine Glucose (UA) Urine Ketones Urine Blood Urine Nitrite Urine Bilirubin Urine Urobilinogen Ur Leukocyte Esterase Urine WBC (Auto) Urine RBC (Auto) Urine Casts (Auto) U Pathogenic Cast Auto U Epithel Cells (Auto) U Sm Round Cell (Auto) Urine Crystals (Auto) Urine Bacteria (Auto) Urine Yeast (Auto) COVID-19 (ORTIZ) Active Medications Generic Name Dose Route Start Last Admin Trade Name Freq PRN Reason Stop Dose Admin Acetaminophen 1,000 mg 06/18/20 23:16 06/18/20 23:24 Ofirmev Injection - IVPB 06/19/20 23:16 1,000 mg Q6H PRN Administration PAIN Heparin Sodium (Porcine) 5,000 unit 06/19/20 10:00 06/19/20 10:48 Heparin - SQ 5,000 unit BID LENORA Administration Sodium Chloride 1,000 mls @ 0 mls/hr 06/18/20 07:30 06/18/20 07:52 Normal Saline - IV 1,000 mls/hr ASDIR LENORA Administration Wide Open Dextrose/Sodium Chloride 1,000 mls @ 75 mls/hr 06/18/20 23:15 06/19/20 01:50 D5-1/2ns - IV 75 mls/hr ASDIR LENORA Administration Meropenem 500 mg/ Dextrose 100 mls @ 200 mls/hr 06/18/20 23:15 IVPB Q12H LENORA Losartan Potassium 50 mg 06/19/20 10:00 06/19/20 10:48 Cozaar - PO Not Given DAILY LENORA Ondansetron HCl 4 mg 06/18/20 23:15 06/19/20 06:30 Zofran Injection IVPUSH 4 mg Q6H PRN Administration NAUSEA COVERING FOR DR RODRÍGUEZ TODAY
[2020-06-20] MEDS ORDERED: MEROPENEM 500 MG in DEXTROSE 5%-WATER 100 ML IVPB ONE (01:45)
[2020-06-20] MEDS ORDERED: PT OWN MED DRAWER 7, Y5N ONE (01:59)
[2020-06-20] MEDS: DEXTROSE 5%-0.45% SALINE 1,000 ML IV SCH (02:01)
[2020-06-20] MEDS ORDERED: ACETAMINOPHEN INJECTION 100 ML IVPB ONE (04:27)
[2020-06-20] MEDS: ONDANSETRON 4 MG/2 ML VIAL IVPUSH PRN ×2 (04:35→18:01)
[2020-06-20] MEDS: ACETAMINOPHEN 1000 MG/100 ML VIAL (NON FORMULARY) IVPB PRN ×3 (05:10→21:29)
[2020-06-20 08:20] LABS: BASO % 0.2 % (0-2.0); EOS % 0.1 % (0-4.5); HEMATOCRIT 34.4 % (35.4-49); HEMOGLOBIN 11.2 GM/dL (11.7-16.9); LYMPH % 9.1 % (8-40); MCH 25.8 pg (25.7-33.7); MCHC 32.5 g/dl (32.0-35.9); MEAN CELL VOLUME 79.5 fl (80-96); MONO % 8.9 % (3.8-10.2); NEUT % 81.7 % (42.8-82.8); PLATELET COUNT 422 K/MM3 (134-434); RBC 4.33 M/mm3 (4.00-5.60); RDW 20.7 % (11.9-15.9); WHITE BLOOD COUNT 9.6 K/mm3 (4.0-10.0)
[2020-06-20 08:28] LABS: ALBUMIN 2.7 g/dl (3.4-5.0); BILIRUBIN,TOTAL 0.4 mg/dL (0.2-1); BLOOD UREA NITROGEN 40.4 mg/dL (7-18); CALCIUM 8.6 mg/dL (8.5-10.1); CREATININE 2.9 mg/dL (0.55-1.3); POTASSIUM 4.8 mmol/L (3.5-5.1); TOT PROT 6.8 g/dl (6.4-8.2)
[2020-06-20] MEDS: MORPHINE SULFATE 2 MG/ML VIAL IVPUSH PRN ×2 (10:06→18:27)
[2020-06-20] MEDS: HEPARIN NA (PORCINE) 5,000 UNITS/ML 1ML VIAL SQ SCH ×2 (10:07→21:29)
[2020-06-20] MEDS: LOSARTAN POTASSIUM 50 MG TABLET (FP) PO SCH (10:07)
--- NOTE | 2020-06-20 10:16 | PN ---
Progress Note (short form) - Note Progress Note: 74yo M h/o SBO, pt seen and examined at bedside. Pt has NGT in place with shows about 500ml feculant drainage overnight. Pt complaining of diffuse abd pain. Last Vital Signs Temp Pulse Resp BP Pulse Ox 98.4 F 73 18 133/63 99 06/20/20 05:00 06/20/20 05:00 06/20/20 05:00 06/20/20 05:00 06/20/20 05:00 CBC, BMP 06/20/20 06:20 06/20/20 06:20 PE: Gen: A&O x3 Resp: Breathing comfortably Abd: moderately distended, diffusely tender, colostomy present with no gas or stool. Back: 12cm x 10cm sacral decub stage 3, some fibrinous tissue and granulation. <Heriberto Elam - Last Filed: 06/20/20 10:10> - Note Progress Note: Attending Surgeon: I personally saw and examined the patient. My examination reveals a patient with an SBO. I discussed the case with the surgical PA and agree with their findings and plan of care with any exceptions as noted. ~ Chapo Quintero MD, FACS <Chapo Quintero - Last Filed: 07/03/20 08:19> Problem List - Problems (1) SBO (small bowel obstruction) Assessment/Plan: Plan -continue NPO, IVF, NGT low suction -abd x-ray -dvt ppx Pt discussed with Dr. Quintero who agrees with plan Code(s): K56.609 - UNSP INTESTNL OBST, UNSP TO PARTIAL VERSUS COMPLETE OBST (2) Decubitus ulcer of sacral region Assessment/Plan: Sacral Ulcer/DTI Plan -Reposition every two hours while in bed -Air mattress recommended -Use drawsheets and Trendelenburg when repositioning to reduce friction and shear -Manageincontinence via timely cleansing, use of appropriate incontinence disposables and use of barrier ointment to intact skin -Ensure adequate hydration/nutrition, supplementation per primary team -Ensure off-loading to all bony areas (heels, ankles, hips and tailbone) with Allevyn/Optifoam -Clean open wounds with normal saline and apply santyl Code(s): L89.159 - PRESSURE ULCER OF SACRAL REGION, UNSPECIFIED STAGE <Heriberto Elam - Last Filed: 06/20/20 10:10>
[2020-06-20] MEDS ORDERED: SODIUM CHLORIDE 1,000 ML IV SCH (12:00)
--- NOTE | 2020-06-20 12:00 | CON.NEP ---
Consult Consult Specialty:: Nephrology Referred by:: Dr. Rodríguez Reason for Consultation:: Acute kidney injury - History of Present Illness Chief Complaint: Abdomnial pain History of Present Illness: This is a 74 year old male with history of CVA, paraplegia, neurogenic bladder with supra-pubic catheter, hypertension, DM, sigmoid volvulus, sacral decubitis ulcer who presented with lower abdominal pain and found to small bowel obstruction and acute kidney injury. Seen and examined at the [facility]. Awake and alert. Complains of abdominal pain and nausea. NGT in place on wall suction. Denies any chest pain, fever, chills, N/V/D. Has suprapubic catheter in place. 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 ) Cardio/Vascular: Yes: HTN Renal/: Yes: Hematuria, Neurogenic Bladder Infectious Disease: Yes: Other (ESBL/Pseudomonas- Urine) Musculoskeletal: Yes: Other (Quadriplegia) Endocrine: Yes: Diabetes Mellitus - Alcohol/Substance Use Hx Alcohol Use: No History of Substance Use: reports: None - Smoking History Smoking history: Never smoked Have you smoked in the past 12 months: No - Social History Usual Living Arrangement: Shelter ADL: Support Services History of Recent Travel: No Home Medications - Allergies Allergies/Adverse Reactions: Allergies Allergy/AdvReac Type Severity Reaction Status Date / Time ciprofloxacin Allergy Verified 06/18/20 06:47 piperacillin [From Zosyn] Allergy Verified 06/18/20 06:47 tazobactam [From Zosyn] Allergy Verified 06/18/20 06:47 vancomycin AdvReac Severe red man Verified 06/18/20 06:47 syndrome Penicillins AdvReac Verified 06/18/20 06:47 - Home Medications Home Medications: Ambulatory Orders Amino Acids/Protein Hydrolys [Prosource No Carb Liquid Pkt] 30 ml PO BID@0800,1730 #60 packet 03/20/20 Losartan Potassium [Cozaar -] 50 mg PO DAILY #30 tablet 03/20/20 Linezolid Oral Suspension [Zyvox Oral Suspension (Restricted To Id) -] 600 mg PO BID #100 ml 04/25/20 Family Medical History Family History: Unable to Obtain Review of Systems Unable to obtain ROS, reason: non verbal Nephrology Consult - Height Height: 5 ft 7 in - Weight Weight: 68.039 kg - BMI Body Mass Index (BMI): 23.5 - Lab Results CBC,BMP: CBC, BMP 06/20/20 06:20 06/20/20 06:20 Anion Gap: Anion Gap Anion Gap 10 MMOL/L (8-16) 06/20/20 06:20 - Physical Examination Vital Signs: Vital Signs Temperature 98.3 F 06/20/20 09:00 Pulse Rate 90 06/20/20 09:00 Respiratory Rate 18 06/20/20 09:00 Blood Pressure 143/72 06/20/20 09:00 O2 Sat by Pulse Oximetry (%) 98 06/20/20 09:00 Constitutional: Yes: No Distress Eyes: Yes: Conjunctiva Clear HENT: Yes: Atraumatic Neck: Yes: Supple Respiratory: Yes: Regular Gastrointestinal: Yes: Distention, Tenderness Renal/: Yes: Other (SPC in place) Extremities: No: Cyanosis Edema: No Neurological: Yes: Alert Assessment/Plan 74 year old male with history of CVA, paraplegia, neurogenic bladder with supra-pubic catheter, hypertension, DM, sigmoid volvulus, sacral decubitis ulcer who presented with lower abdominal pain and found to small bowel obstruction and acute kidney injury. 1. Acute kidney injury likely secondary to volume depletion/ATN vs. obstruction 2. Distal Small bowel obstruction 3. Hx of Nephrolithiasis with obstruction with indwelling stent 4. Anemia 5. Hypertension 6. Cystitis/Urinary tract infection Renal function worsening likely due to volume deficit. Check urine studies Start D5NS at 125cc per hour. CT of the Abd/Pelvis showed no obstruction and indwelling stent. Check Renal US Urology following, may need stent exchange Trend H/H, no acute need for transfusion BP is stable, trend for now. Continue antibiotics as per primary team. Thank you Arias Eubanks DO
--- NOTE | 2020-06-20 12:27 | CON.ID ---
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 The patient also reports shortness of breath. no cough no phelgm, no fevers. 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 ) Cardio/Vascular: Yes: HTN Renal/: Yes: Hematuria, Neurogenic Bladder Infectious Disease: Yes: Other (ESBL/Pseudomonas- Urine) Musculoskeletal: Yes: Other (Quadriplegia) Endocrine: Yes: Diabetes Mellitus - Alcohol/Substance Use Hx Alcohol Use: No History of Substance Use: reports: None - Smoking History Smoking history: Never smoked Have you smoked in the past 12 months: No - Social History Usual Living Arrangement: Group Home ADL: Support Services History of Recent Travel: No Home Medications - Allergies Allergies/Adverse Reactions: Allergies Allergy/AdvReac Type Severity Reaction Status Date / Time ciprofloxacin Allergy Verified 06/18/20 06:47 piperacillin [From Zosyn] Allergy Verified 06/18/20 06:47 tazobactam [From Zosyn] Allergy Verified 06/18/20 06:47 vancomycin AdvReac Severe red man Verified 06/18/20 06:47 syndrome Penicillins AdvReac Verified 06/18/20 06:47 - Home Medications Home Medications: Ambulatory Orders RX: Amino Acids/Protein Hydrolys [Prosource No Carb Liquid Pkt] 30 ml PO BID@0800,1730 #60 packet 03/20/20 RX: Losartan Potassium [Cozaar -] 50 mg PO DAILY #30 tablet 03/20/20 RX: Linezolid Oral Suspension [Zyvox Oral Suspension (Restricted To Id) -] 600 mg PO BID #100 ml 04/25/20 Family Medical History Family History: Unable to Obtain Review of Systems - Review of Systems Constitutional: reports: No Symptoms Eyes: reports: No Symptoms HENT: reports: No Symptoms Neck: reports: No Symptoms Cardiovascular: reports: No Symptoms Respiratory: reports: No Symptoms Gastrointestinal: reports: Abdominal Pain, Bloating, Other Genitourinary: reports: No Symptoms Musculoskeletal: reports: No Symptoms Integumentary: reports: No Symptoms Neurological: reports: No Symptoms, Weakness Hematology/Lymphatic: reports: No Symptoms Psychiatric: reports: No Symptoms Physical Exam Vital Signs: Vital Signs Temperature 98.3 F 06/20/20 09:00 Pulse Rate 90 06/20/20 09:00 Respiratory Rate 18 06/20/20 09:00 Blood Pressure 143/72 06/20/20 09:00 O2 Sat by Pulse Oximetry (%) 98 06/20/20 09:00 Constitutional: Yes: Moderate Distress Eyes: Yes: Conjunctiva Clear HENT: Yes: Atraumatic, Normocephalic Neck: Yes: Supple, Trachea Midline Cardiovascular: Yes: Regular Rate and Rhythm Respiratory: Yes: Regular, CTA Bilaterally Gastrointestinal: Yes: Distention, Other (absent bowel sounds, ng tube in place) Musculoskeletal: Yes: WNL Extremities: Yes: WNL Neurological: Yes: Alert Psychiatric: Yes: Alert Labs: CBC, BMP 06/20/20 06:20 06/20/20 06:20 Imaging - Results Chest X-ray: Report Reviewed, Image Reviewed X-ray: Report Reviewed, Image Reviewed Assessment/Plan Problem List - Problems (1) Abdominal distension Code(s): R14.0 - ABDOMINAL DISTENSION (GASEOUS) (2) Abdominal pain Code(s): R10.9 - UNSPECIFIED ABDOMINAL PAIN Qualifiers: Abdominal location: generalized Qualified Code(s): R10.84 - Generalized abdominal pain (3) Chronic suprapubic catheter Code(s): Z93.59 - OTHER CYSTOSTOMY STATUS (4) Diabetes Code(s): E11.9 - TYPE 2 DIABETES MELLITUS WITHOUT COMPLICATIONS (5) Functional quadriplegia Code(s): R53.2 - FUNCTIONAL QUADRIPLEGIA (6) HTN (hypertension) Code(s): I10 - ESSENTIAL (PRIMARY) HYPERTENSION (7) SBO (small bowel obstruction) Code(s): K56.609 - UNSP INTESTNL OBST, UNSP TO PARTIAL VERSUS COMPLETE OBST (8) Sacral decubitus ulcer, stage IV Code(s): L89.154 - PRESSURE ULCER OF SACRAL REGION, STAGE 4 (9) Severe malnutrition Code(s): E43 - UNSPECIFIED SEVERE PROTEIN-CALORIE MALNUTRITIO plan will start on abx as per surg mgmt ng tube to suction wound care might need debridement await for identification of all organisms
--- NOTE | 2020-06-20 13:27 | PN ---
Progress Note (short form) - Note Progress Note: GI CONSULT NPO / IVF'S / NGT SURGERY CONSULT
[2020-06-20] MEDS ORDERED: DEXTROSE 5%-WATER 100 ML IVPB ONE ×2 (13:31→21:11)
[2020-06-20] MEDS ORDERED: MEROPENEM 1 GM VIAL (RESTRICTED TO ID) IVPB ONE ×2 (13:31→21:11)
[2020-06-20] MEDS: MEROPENEM 1 GM in DEXTROSE 5%-WATER 100 ML IVPB SCH ×2 (13:40→21:29)
[2020-06-20] MEDS: DEXTROSE 5%-NORMAL SALINE 1,000 ML IV SCH (13:41)
--- NOTE | 2020-06-20 17:08 | PN ---
Progress Note, Physician - Current Medication List Current Medications: Active Medications Acetaminophen (Ofirmev Injection -) 1,000 mg IVPB Q6H PRN PRN Reason: PAIN 1-6 Last Admin: 06/20/20 15:51 Dose: 1,000 mg Documented by: Collagenase (Santyl -) 1 applic TP DAILY [facility]; Protocol Heparin Sodium (Porcine) (Heparin -) 5,000 unit SQ BID [facility] Last Admin: 06/20/20 10:07 Dose: 5,000 unit Documented by: Dextrose/Sodium Chloride (D5-Ns -) 1,000 mls @ 125 mls/hr IV ASDIR [facility] Last Admin: 06/20/20 13:41 Dose: 125 mls/hr Documented by: Meropenem 1 gm/ Dextrose 100 mls @ 200 mls/hr IVPB BID [facility] Last Admin: 06/20/20 13:40 Dose: 200 mls/hr Documented by: Morphine Sulfate (Morphine Sulfate) 2 mg IVPUSH Q6H PRN PRN Reason: PAIN LEVEL 6-10 Last Admin: 06/20/20 10:06 Dose: 2 mg Documented by: Ondansetron HCl (Zofran Injection) 4 mg IVPUSH Q6H PRN PRN Reason: NAUSEA Last Admin: 06/20/20 04:35 Dose: 4 mg Documented by: - Objective Vital Signs: Vital Signs Temperature 98.4 F 06/20/20 14:58 Pulse Rate 80 06/20/20 14:58 Respiratory Rate 18 06/20/20 14:58 Blood Pressure 130/62 06/20/20 14:58 O2 Sat by Pulse Oximetry (%) 96 06/20/20 14:58 Labs: CBC, BMP 06/20/20 06:20 06/20/20 06:20
--- NOTE | 2020-06-20 18:12 | CONS ---
GASTROENTEROLOGY CONSULTATION DATE OF CONSULTATION: DATE OF DICTATION: 06/20/2020 Patient is a 74-year-old man with a past medical history of quadriplegia; diabetes; hypertension; sigmoid volvulus, status post colostomy in September 2019; neurogenic bladder with suprapubic catheter and left nephrostomy tube; ESBL UTIs; sacral ulcers; wound VAC, who was brought to the emergency room for evaluation of worsening lower abdominal pain and nausea and vomiting which have been intermittent over the past couple of weeks. He denies any hematemesis, melena, or hematochezia. States that he is feeling somewhat better, but still has abdominal pain. He is a poor historian. PAST MEDICAL AND SURGICAL HISTORY: As listed in the HPI. ALLERGIES: CIPROFLOXACIN, PIPERACILLIN, TAZOBACTAM, VANCOMYCIN, and PENICILLIN. SOCIAL HISTORY: Does not smoke, does not drink, or use drugs. FAMILY HISTORY: Unable to obtain. HOME MEDICATIONS: Reviewed. PHYSICAL EXAMINATION: Vital Signs: Temperature 98, pulse 80, blood pressure 130/62, respiratory rate 18, pulse oximetry 96% on room air. General: No acute distress. HEENT: Anicteric sclera. Cardiovascular: S1, S2. Regular rate and rhythm. Lungs: Clear bilaterally anterior. Abdomen: Tender diffusely without any rebound or guarding. Bowel sounds are normal and present. NG tube is in place. Extremities: Without edema. LABORATORY DATA: White blood cell count 9.6, hemoglobin 11 and hematocrit 34, MCV 79, platelet count 422. Sodium 140, potassium 4.8, BUN 40, creatinine 2.9, glucose 114. AST 16, ALT 15, alkaline phosphatase 78. COVID-19 is negative. He had an abdominal and pelvic CT scan which was done on June 18, which revealed a distal small-bowel obstruction, cholelithiasis, left renal ureteral stent. Abdominal x-ray was done on the , which revealed a small-bowel obstruction. Decompression did not occur. There is no free air. Cultures: Gram stain positive for lactose-fermenting negative bacilli and urine is a contaminant. IMPRESSION: Small-bowel obstruction secondary to adhesions. RECOMMENDATION: Surgery evaluation, NG tube to intermittent wall suction, IV fluids. Monitor labs daily while hospitalized. Avoid narcotics. Will follow. DO JAX SUERO/[id number] DANNA
[2020-06-21] MEDS: ACETAMINOPHEN 1000 MG/100 ML VIAL (NON FORMULARY) IVPB PRN ×2 (06:23→22:35)
--- NOTE | 2020-06-21 09:01 | PN ---
Progress Note, Physician History of Present Illness: stable no new issues - Current Medication List Current Medications: Active Medications Acetaminophen (Ofirmev Injection -) 1,000 mg IVPB Q6H PRN PRN Reason: PAIN 1-6 Last Admin: 06/21/20 06:23 Dose: 1,000 mg Documented by: Collagenase (Santyl -) 1 applic TP DAILY [facility]; Protocol Heparin Sodium (Porcine) (Heparin -) 5,000 unit SQ BID [facility] Last Admin: 06/20/20 21:29 Dose: 5,000 unit Documented by: Dextrose/Sodium Chloride (D5-Ns -) 1,000 mls @ 125 mls/hr IV ASDIR [facility] Last Admin: 06/20/20 13:41 Dose: 125 mls/hr Documented by: Meropenem 1 gm/ Dextrose 100 mls @ 200 mls/hr IVPB BID [facility] Last Admin: 06/20/20 21:29 Dose: 200 mls/hr Documented by: Morphine Sulfate (Morphine Sulfate) 2 mg IVPUSH Q6H PRN PRN Reason: PAIN LEVEL 6-10 Last Admin: 06/20/20 18:27 Dose: 2 mg Documented by: Ondansetron HCl (Zofran Injection) 4 mg IVPUSH Q6H PRN PRN Reason: NAUSEA Last Admin: 06/20/20 18:01 Dose: 4 mg Documented by: - Objective Vital Signs: Vital Signs Temperature 98.6 F 06/21/20 08:53 Pulse Rate 86 06/21/20 08:53 Respiratory Rate 18 06/21/20 08:53 Blood Pressure 133/62 06/21/20 08:53 O2 Sat by Pulse Oximetry (%) 99 06/21/20 08:53 Constitutional: Yes: No Distress, Calm Cardiovascular: Yes: S1, S2 Respiratory: Yes: Regular, CTA Bilaterally Gastrointestinal: Yes: Soft, Hypoactive Bowel Sounds, Other (ng tube in place) Musculoskeletal: Yes: WNL Extremities: Yes: WNL Neurological: Yes: Alert Labs: CBC, BMP 06/20/20 06:20 06/20/20 06:20 Assessment/Plan Problem List - Problems (1) Abdominal distension Code(s): R14.0 - ABDOMINAL DISTENSION (GASEOUS) (2) Abdominal pain Code(s): R10.9 - UNSPECIFIED ABDOMINAL PAIN Qualifiers: Abdominal location: generalized Qualified Code(s): R10.84 - Generalized abdominal pain (3) Chronic suprapubic catheter Code(s): Z93.59 - OTHER CYSTOSTOMY STATUS (4) Diabetes Code(s): E11.9 - TYPE 2 DIABETES MELLITUS WITHOUT COMPLICATIONS (5) Functional quadriplegia Code(s): R53.2 - FUNCTIONAL QUADRIPLEGIA (6) HTN (hypertension) Code(s): I10 - ESSENTIAL (PRIMARY) HYPERTENSION (7) SBO (small bowel obstruction) Code(s): K56.609 - UNSP INTESTNL OBST, UNSP TO PARTIAL VERSUS COMPLETE OBST (8) Sacral decubitus ulcer, stage IV Code(s): L89.154 - PRESSURE ULCER OF SACRAL REGION, STAGE 4 (9) Severe malnutrition Code(s): E43 - UNSPECIFIED SEVERE PROTEIN-CALORIE MALNUTRITIO plan continue abx surgery n\hydration rest as per the team
[2020-06-21] MEDS ORDERED: DEXTROSE 5%-WATER 100 ML IVPB ONE ×2 (09:14→20:57)
[2020-06-21] MEDS ORDERED: MEROPENEM 1 GM VIAL (RESTRICTED TO ID) IVPB ONE ×2 (09:14→20:57)
[2020-06-21] MEDS: MEROPENEM 1 GM in DEXTROSE 5%-WATER 100 ML IVPB SCH ×2 (09:52→21:06)
[2020-06-21] MEDS: HEPARIN NA (PORCINE) 5,000 UNITS/ML 1ML VIAL SQ SCH ×2 (09:53→21:05)
[2020-06-21] MEDS: COLLAGENASE CLOSTRIDIUM HIST. 30 GRAMS TUBE TP SCH (09:54)
[2020-06-21] MEDS: MORPHINE SULFATE 2 MG/ML VIAL IVPUSH PRN ×2 (11:29→21:05)
--- NOTE | 2020-06-21 11:53 | PN ---
Progress Note (short form) - Note Progress Note: Surgery: Pt with complaints of abd pain. Vital Signs Period Temp Pulse Resp BP Sys/Bradley Pulse Ox Last 24 Hr 98.4 F-99 F 80-91 18-18 116-137/55-65 90-99 NGT: 1750 light brown/green fluid GEN: Alert, NAD ABD: soft, distended, diffuse tenderness to abd. Ostomy viable and without outpt. No flatus/stool. Microbiology Laboratory Tests 06/21/20 06/21/20 14:45 14:45 WBC 8.0 Hct 33.6 L MCV 80.7 Plt Count 367 Sodium 142 Potassium 3.7 Carbon Dioxide 29 Anion Gap 6 L BUN 48.0 H Creatinine 2.4 H Phosphorus 4.1 Magnesium 2.1 A/P: 74 yo male with SBO h/o colostomy, pt with sacral wound Recommend to continue npo/IV hydration IV abx daily BMP/xray-ordered D/w Dr. Quintero <Akanksha Peters - Last Filed: 06/21/20 17:38> - Note Progress Note: Attending Surgeon: I personally saw and examined the patient. My examination reveals a patient with recurrent SBO. I discussed the case with the surgical PA and agree with their findings and plan of care with any exceptions as noted. ~ Chapo Quintero MD, FACS <Chapo Quintero - Last Filed: 07/03/20 08:04> Problem List - Problems (1) Abdominal distension Code(s): R14.0 - ABDOMINAL DISTENSION (GASEOUS) <Akanksha Peters - Last Filed: 06/21/20 17:38>
--- NOTE | 2020-06-21 14:50 | PN ---
Progress Note, Physician History of Present Illness: Seem and examined at the bedside awake and alert complains of abdominal pain no fever, chills on IVF making urine - Current Medication List Current Medications: Active Medications Acetaminophen (Ofirmev Injection -) 1,000 mg IVPB Q6H PRN PRN Reason: PAIN 1-6 Last Admin: 06/21/20 06:23 Dose: 1,000 mg Documented by: Collagenase (Santyl -) 1 applic TP DAILY [facility]; Protocol Last Admin: 06/21/20 09:54 Dose: 1 applic Documented by: Heparin Sodium (Porcine) (Heparin -) 5,000 unit SQ BID [facility] Last Admin: 06/21/20 09:53 Dose: 5,000 unit Documented by: Dextrose/Sodium Chloride (D5-Ns -) 1,000 mls @ 125 mls/hr IV ASDIR [facility] Last Admin: 06/20/20 13:41 Dose: 125 mls/hr Documented by: Meropenem 1 gm/ Dextrose 100 mls @ 200 mls/hr IVPB BID [facility] Last Admin: 06/21/20 09:52 Dose: 200 mls/hr Documented by: Morphine Sulfate (Morphine Sulfate) 2 mg IVPUSH Q6H PRN PRN Reason: PAIN LEVEL 6-10 Last Admin: 06/21/20 11:29 Dose: 2 mg Documented by: Ondansetron HCl (Zofran Injection) 4 mg IVPUSH Q6H PRN PRN Reason: NAUSEA Last Admin: 06/20/20 18:01 Dose: 4 mg Documented by: - Objective Vital Signs: Vital Signs Temperature 98.6 F 06/21/20 08:53 Pulse Rate 86 06/21/20 08:53 Respiratory Rate 18 06/21/20 08:53 Blood Pressure 133/62 06/21/20 08:53 O2 Sat by Pulse Oximetry (%) 99 06/21/20 08:53 Constitutional: Yes: No Distress, Calm HENT: Yes: Atraumatic Neck: Yes: Supple Cardiovascular: Yes: Regular Rate and Rhythm Respiratory: Yes: Regular, CTA Bilaterally Gastrointestinal: Yes: Tenderness Edema: No Labs: CBC, BMP 06/20/20 06:20 06/20/20 06:20 Assessment/Plan 74 year old male with history of CVA, paraplegia, neurogenic bladder with supra-pubic catheter, hypertension, DM, sigmoid volvulus, sacral decubitis ulcer who presented with lower abdominal pain and found to small bowel obstruction and acute kidney injury. 1. Acute kidney injury likely secondary to volume depletion/ATN vs. obstruction 2. Distal Small bowel obstruction 3. Hx of Nephrolithiasis with obstruction with indwelling stent 4. Anemia 5. Hypertension 6. Cystitis/Urinary tract infection NO labs reported today, ordered labs STAT Continue D5NS at 125cc per hour. CT of the Abd/Pelvis showed no obstruction and indwelling stent. Renal US report not read yet Urology following, may need stent exchange Trend H/H, no acute need for transfusion BP is stable, trend for now. Continue antibiotics as per primary team. Thank you Arias Eubanks DO
[2020-06-21 15:15] LABS: BASO % 0.2 % (0-2.0); EOS % 3.4 % (0-4.5); HEMATOCRIT 33.6 % (35.4-49); HEMOGLOBIN 10.8 GM/dL (11.7-16.9); LYMPH % 16.3 % (8-40); MCH 25.8 pg (25.7-33.7); MEAN CELL VOLUME 80.7 fl (80-96); MEAN PLT VOLUME 6.8 fl (7.5-11.1); MONO % 12.9 % (3.8-10.2); NEUT % 67.2 % (42.8-82.8); PLATELET COUNT 367 K/MM3 (134-434); RBC 4.17 M/mm3 (4.00-5.60); RDW 20.1 % (11.9-15.9)
[2020-06-21 15:50] LABS: CALCIUM 8.5 mg/dL (8.5-10.1); CREATININE 2.4 mg/dL (0.55-1.3); MAGNESIUM 2.1 mg/dL (1.8-2.4); PHOSPHOROUS 4.1 mg/dL (2.5-4.9); POTASSIUM 3.7 mmol/L (3.5-5.1)
--- NOTE | 2020-06-21 17:13 | PN ---
Progress Note, Physician History of Present Illness: ngt in place - Current Medication List Current Medications: Active Medications Acetaminophen (Ofirmev Injection -) 1,000 mg IVPB Q6H PRN PRN Reason: PAIN 1-6 Last Admin: 06/21/20 06:23 Dose: 1,000 mg Documented by: Collagenase (Santyl -) 1 applic TP DAILY [facility]; Protocol Last Admin: 06/21/20 09:54 Dose: 1 applic Documented by: Heparin Sodium (Porcine) (Heparin -) 5,000 unit SQ BID [facility] Last Admin: 06/21/20 09:53 Dose: 5,000 unit Documented by: Dextrose/Sodium Chloride (D5-Ns -) 1,000 mls @ 125 mls/hr IV ASDIR [facility] Last Admin: 06/20/20 13:41 Dose: 125 mls/hr Documented by: Meropenem 1 gm/ Dextrose 100 mls @ 200 mls/hr IVPB BID [facility] Last Admin: 06/21/20 09:52 Dose: 200 mls/hr Documented by: Morphine Sulfate (Morphine Sulfate) 2 mg IVPUSH Q6H PRN PRN Reason: PAIN LEVEL 6-10 Last Admin: 06/21/20 11:29 Dose: 2 mg Documented by: Ondansetron HCl (Zofran Injection) 4 mg IVPUSH Q6H PRN PRN Reason: NAUSEA Last Admin: 06/20/20 18:01 Dose: 4 mg Documented by: - Objective Vital Signs: Vital Signs Temperature 98.8 F 06/21/20 14:58 Pulse Rate 92 H 06/21/20 14:58 Respiratory Rate 18 06/21/20 14:58 Blood Pressure 109/66 06/21/20 14:58 O2 Sat by Pulse Oximetry (%) 98 06/21/20 14:58 Constitutional: Yes: No Distress HENT: Yes: Atraumatic Neck: Yes: Supple Cardiovascular: Yes: Regular Rate and Rhythm Respiratory: Yes: Rhonchi Gastrointestinal: Yes: Hypoactive Bowel Sounds Extremities: Yes: WNL Neurological: Yes: Alert, Oriented Labs: CBC, BMP 06/21/20 14:45 06/21/20 14:45 Problem List - Problems (1) Abdominal distension Assessment/Plan: ngt in place gi and surgical Eval...done Code(s): R14.0 - ABDOMINAL DISTENSION (GASEOUS) (2) Abdominal pain Assessment/Plan: npo ivf prn pain meds Code(s): R10.9 - UNSPECIFIED ABDOMINAL PAIN Qualifiers: Abdominal location: generalized Qualified Code(s): R10.84 - Generalized abdominal pain (3) Chronic suprapubic catheter Code(s): Z93.59 - OTHER CYSTOSTOMY STATUS (4) Diabetes Assessment/Plan: monitor bgms npo Code(s): E11.9 - TYPE 2 DIABETES MELLITUS WITHOUT COMPLICATIONS (5) Functional quadriplegia Code(s): R53.2 - FUNCTIONAL QUADRIPLEGIA (6) HTN (hypertension) Assessment/Plan: on meds monitor Code(s): I10 - ESSENTIAL (PRIMARY) HYPERTENSION (7) SBO (small bowel obstruction) Assessment/Plan: npo ngt prn zofran prn pain meds Code(s): K56.609 - UNSP INTESTNL OBST, UNSP TO PARTIAL VERSUS COMPLETE OBST (8) Sacral decubitus ulcer, stage IV Code(s): L89.154 - PRESSURE ULCER OF SACRAL REGION, STAGE 4 (9) Severe malnutrition Code(s): E43 - UNSPECIFIED SEVERE PROTEIN-CALORIE MALNUTRITION Assessment/Plan COVERING FOR DR RJ WONG
[2020-06-21] MEDS: DEXTROSE 5%-NORMAL SALINE 1,000 ML IV SCH (17:41)
[2020-06-21] MEDS: ONDANSETRON 4 MG/2 ML VIAL IVPUSH PRN (21:05)
[2020-06-22] MEDS: DEXTROSE 5%-NORMAL SALINE 1,000 ML IV SCH ×2 (02:30→13:22)
[2020-06-22] MEDS: ONDANSETRON 4 MG/2 ML VIAL IVPUSH PRN ×2 (06:07→19:40)
[2020-06-22] MEDS: MORPHINE SULFATE 2 MG/ML VIAL IVPUSH PRN ×2 (07:01→12:53)
[2020-06-22 07:41] LABS: CALCIUM 8.2 mg/dL (8.5-10.1); CREATININE 2.1 mg/dL (0.55-1.3); PHOSPHOROUS 3.8 mg/dL (2.5-4.9); POTASSIUM 3.8 mmol/L (3.5-5.1)
[2020-06-22 07:48] LABS: BASO % 0.3 % (0-2.0); EOS % 6.5 % (0-4.5); HEMATOCRIT 34.1 % (35.4-49); HEMOGLOBIN 10.7 GM/dL (11.7-16.9); MCH 25.4 pg (25.7-33.7); MCHC 31.3 g/dl (32.0-35.9); MEAN CELL VOLUME 81.1 fl (80-96); MEAN PLT VOLUME 6.8 fl (7.5-11.1); MONO % 14.1 % (3.8-10.2); NEUT % 62.1 % (42.8-82.8); PLATELET COUNT 370 K/MM3 (134-434); RDW 20.4 % (11.9-15.9); WHITE BLOOD COUNT 8.4 K/mm3 (4.0-10.0)
[2020-06-22] MEDS ORDERED: MEROPENEM 1 GM VIAL (RESTRICTED TO ID) IVPB ONE ×2 (09:48→21:20)
[2020-06-22] MEDS ORDERED: DEXTROSE 5%-WATER 100 ML IVPB ONE ×2 (09:49→21:20)
[2020-06-22] MEDS: MEROPENEM 1 GM in DEXTROSE 5%-WATER 100 ML IVPB SCH ×2 (09:56→21:25)
[2020-06-22] MEDS: HEPARIN NA (PORCINE) 5,000 UNITS/ML 1ML VIAL SQ SCH ×2 (09:57→21:26)
[2020-06-22] MEDS: COLLAGENASE CLOSTRIDIUM HIST. 30 GRAMS TUBE TP SCH (09:57)
--- NOTE | 2020-06-22 10:47 | PN ---
Progress Note, Physician History of Present Illness: continues to be distended - Current Medication List Current Medications: Active Medications Acetaminophen (Ofirmev Injection -) 1,000 mg IVPB Q6H PRN PRN Reason: PAIN 1-6 Last Admin: 06/21/20 22:35 Dose: 1,000 mg Documented by: Collagenase (Santyl -) 1 applic TP DAILY [facility]; Protocol Last Admin: 06/22/20 09:57 Dose: 1 applic Documented by: Heparin Sodium (Porcine) (Heparin -) 5,000 unit SQ BID [facility] Last Admin: 06/22/20 09:57 Dose: 5,000 unit Documented by: Dextrose/Sodium Chloride (D5-Ns -) 1,000 mls @ 125 mls/hr IV ASDIR [facility] Last Admin: 06/22/20 02:30 Dose: 125 mls/hr Documented by: Meropenem 1 gm/ Dextrose 100 mls @ 200 mls/hr IVPB BID [facility] Last Admin: 06/22/20 09:56 Dose: 200 mls/hr Documented by: Morphine Sulfate (Morphine Sulfate) 2 mg IVPUSH Q6H PRN PRN Reason: PAIN LEVEL 6-10 Last Admin: 06/22/20 07:01 Dose: 2 mg Documented by: Ondansetron HCl (Zofran Injection) 4 mg IVPUSH Q6H PRN PRN Reason: NAUSEA Last Admin: 06/22/20 06:07 Dose: 4 mg Documented by: - Objective Vital Signs: Vital Signs Temperature 98 F 06/22/20 10:34 Pulse Rate 85 06/22/20 10:34 Respiratory Rate 18 06/22/20 10:34 Blood Pressure 125/68 06/22/20 10:34 O2 Sat by Pulse Oximetry (%) 99 06/22/20 10:34 Constitutional: Yes: Mild Distress Cardiovascular: Yes: S1, S2 Respiratory: Yes: Regular, CTA Bilaterally Gastrointestinal: Yes: Other (absent bowel sounds,ng tube in place) Musculoskeletal: Yes: WNL Extremities: Yes: WNL Wound/Incision: Yes: Dressing Dry and Intact Neurological: Yes: Alert Labs: CBC, BMP 06/22/20 06:50 06/22/20 06:50 Assessment/Plan Problem List - Problems (1) Abdominal distension Code(s): R14.0 - ABDOMINAL DISTENSION (GASEOUS) (2) Abdominal pain Code(s): R10.9 - UNSPECIFIED ABDOMINAL PAIN Qualifiers: Abdominal location: generalized Qualified Code(s): R10.84 - Generalized abdominal pain (3) Chronic suprapubic catheter Code(s): Z93.59 - OTHER CYSTOSTOMY STATUS (4) Diabetes Code(s): E11.9 - TYPE 2 DIABETES MELLITUS WITHOUT COMPLICATIONS (5) Functional quadriplegia Code(s): R53.2 - FUNCTIONAL QUADRIPLEGIA (6) HTN (hypertension) Code(s): I10 - ESSENTIAL (PRIMARY) HYPERTENSION (7) SBO (small bowel obstruction) Code(s): K56.609 - UNSP INTESTNL OBST, UNSP TO PARTIAL VERSUS COMPLETE OBST (8) Sacral decubitus ulcer, stage IV Code(s): L89.154 - PRESSURE ULCER OF SACRAL REGION, STAGE 4 (9) Severe malnutrition Code(s): E43 - UNSPECIFIED SEVERE PROTEIN-CALORIE MALNUTRITIO plan continue abx as per surgery hydration gi on board rest as per the team
--- NOTE | 2020-06-22 10:49 | PN.GI ---
GI Progress Note Subjective: No acute events NGT lavaged. 300cc clear liquid aspirated Continued abdominal pain AXR today shows persistent SBO - Objective Vital Signs: Vital Signs Temperature 98 F 06/22/20 10:34 Pulse Rate 85 06/22/20 10:34 Respiratory Rate 18 06/22/20 10:34 Blood Pressure 125/68 06/22/20 10:34 O2 Sat by Pulse Oximetry (%) 99 06/22/20 10:34 Constitutional: Calm Eyes: No: Sclera Icterus Cardiovascular: Yes: Regular Rate and Rhythm Gastrointestinal Inspection: Yes: Other (colostomy in left abdomen: no output) ...Auscultate: Yes: Hypoactive Bowel Sounds ...Palpate: Yes: Tenderness ...Percussion: Yes: Tympanitic Edema: No Neurological: Yes: Alert Labs: CBC, BMP 06/22/20 06:50 06/22/20 06:50 Problem List - Problems (1) SBO (small bowel obstruction) Assessment/Plan: NPO IV hydration Plan per surgery Code(s): K56.609 - UNSP INTESTNL OBST, UNSP TO PARTIAL VERSUS COMPLETE OBST
--- NOTE | 2020-06-22 10:50 | PN ---
Progress Note (short form) - Note Progress Note: Surgery: Pt with complaints of abd pain. Vital Signs Period Temp Pulse Resp BP Sys/Bradley Pulse Ox Last 24 Hr 98 F-98.8 F 85-98 16-18 109-137/58-68 97-99 NGT: 700 light brown/green fluid GEN: Alert, NAD ABD: soft, distended, diffuse tenderness to abd. Ostomy viable and without outpt overall less edematous. No flatus, 2 pieces of small stool in ostomy bag Microbiology CBC, BMP 06/22/20 06:50 06/22/20 06:50 Laboratory Tests 06/22/20 06:50 Phosphorus 3.8 Axr: dilated Small bowel. ngt in place. No change from 06/21 A/P: 74 yo male with SBO h/o colostomy, pt with sacral wound and left uretheral stent Recommend to continue npo/IV hydration IV abx daily BMP/xray-ordered Plan for urology to change the suprapubic tube today. D/w Dr. Quintero <Akanksha Peters - Last Filed: 06/22/20 10:52> - Note Progress Note: Attending Surgeon: I personally saw and examined the patient. My examination reveals a patient with recurrent SBO. I discussed the case with the surgical PA and agree with their findings and plan of care with any exceptions as noted. ~ Chapo Quintero MD, FACS <Chapo Quintero - Last Filed: 07/03/20 08:02> Problem List - Problems (1) Abdominal distension Code(s): R14.0 - ABDOMINAL DISTENSION (GASEOUS) <Akanksha Peters - Last Filed: 06/22/20 10:52>
[2020-06-22] MEDS: PANTOPRAZOLE SODIUM 40 MG VIAL IVPUSH SCH (13:22)
--- NOTE | 2020-06-22 13:57 | PN ---
Progress Note, Physician History of Present Illness: Seem and examined at the bedside awake and alert still has abdominal pain and distension making urine via SPC SPC exchanged yesterday on IVF NGT to wall suction - Current Medication List Current Medications: Active Medications Acetaminophen (Ofirmev Injection -) 1,000 mg IVPB Q6H PRN PRN Reason: PAIN 1-6 Last Admin: 06/21/20 22:35 Dose: 1,000 mg Documented by: Collagenase (Santyl -) 1 applic TP DAILY [facility]; Protocol Last Admin: 06/22/20 09:57 Dose: 1 applic Documented by: Heparin Sodium (Porcine) (Heparin -) 5,000 unit SQ BID [facility] Last Admin: 06/22/20 09:57 Dose: 5,000 unit Documented by: Meropenem 1 gm/ Dextrose 100 mls @ 200 mls/hr IVPB BID [facility] Last Admin: 06/22/20 09:56 Dose: 200 mls/hr Documented by: Amino Acids (Clinimix -) 1,000 mls @ 42 mls/hr IV Q24H [facility] Sodium Chloride (Normal Saline -) 1,000 mls @ 75 mls/hr IV ASDIR [facility] Morphine Sulfate (Morphine Sulfate) 2 mg IVPUSH Q6H PRN PRN Reason: PAIN LEVEL 6-10 Last Admin: 06/22/20 12:53 Dose: 2 mg Documented by: Ondansetron HCl (Zofran Injection) 4 mg IVPUSH Q6H PRN PRN Reason: NAUSEA Last Admin: 06/22/20 06:07 Dose: 4 mg Documented by: Pantoprazole Sodium (Protonix Iv) 40 mg IVPUSH DAILY [facility] Last Admin: 06/22/20 13:22 Dose: 40 mg Documented by: - Objective Vital Signs: Vital Signs Temperature 98 F 06/22/20 10:34 Pulse Rate 85 06/22/20 10:34 Respiratory Rate 18 06/22/20 10:34 Blood Pressure 125/68 06/22/20 10:34 O2 Sat by Pulse Oximetry (%) 99 06/22/20 10:34 Constitutional: Yes: No Distress, Calm HENT: Yes: Atraumatic Neck: Yes: Supple Cardiovascular: Yes: Regular Rate and Rhythm Respiratory: Yes: Regular Gastrointestinal: Yes: Soft Edema: No Labs: CBC, BMP 06/22/20 06:50 06/22/20 06:50 Assessment/Plan 74 year old male with history of CVA, paraplegia, neurogenic bladder with supra-pubic catheter, hypertension, DM, sigmoid volvulus, sacral decubitis ulcer who presented with lower abdominal pain and found to small bowel obstruction and acute kidney injury. 1. Acute kidney injury likely secondary to volume depletion/ATN vs. obstruction 2. Distal Small bowel obstruction 3. Hx of Nephrolithiasis with obstruction with indwelling stent 4. Anemia 5. Hypertension 6. Cystitis/Urinary tract infection Renal function improving Started Clinmix for nutrition support Continue NS at 75cc per hour CT of the Abd/Pelvis showed no obstruction and indwelling stent. Urology following Trend H/H, no acute need for transfusion BP is stable, trend for now. Continue antibiotics as per primary team. Thank you Arias Eubanks DO
[2020-06-22] MEDS: ACETAMINOPHEN 1000 MG/100 ML VIAL (NON FORMULARY) IVPB PRN (15:09)
--- NOTE | 2020-06-22 18:04 | CONS ---
DATE OF CONSULTATION: DATE OF DICTATION: 06/22/2020 HISTORY OF PRESENT ILLNESS: The patient is a 74-year-old male quadriplegic diabetic sigmoid volvulus status post colostomy, has neurogenic bladder with suprapubic tube. Suprapubic tube has been intermittently blocked, and the tract appear to be inflamed with granulation tissue. The urine has grown out ESBL. The suprapubic tube was changed this morning to a 28 Irish 20 mL. The wound was cleaned and debrided. There was good return on flushing. The abdomen is soft. The patient is complaining of epigastric pain. His latest data reveals a BUN and creatinine of 47 over 2.1. His white count is 8.4, hemoglobin and hematocrit are 10.7 over 31.1. His T-max is 98.6, blood pressure 125/68. His urine output has been 1600 to 1800 mL per day via the suprapubic tube. Will recommend changing suprapubic tube q.6 weeks . Chloe [id number]
[2020-06-22] MEDS: AMINO ACIDS 4.25%/D5W 1,000 ML IV SCH (18:22)
[2020-06-22] MEDS: SODIUM CHLORIDE 1,000 ML IV SCH (21:25)
--- NOTE | 2020-06-22 22:19 | PN ---
Progress Note, Physician - Current Medication List Current Medications: Active Medications Acetaminophen (Ofirmev Injection -) 1,000 mg IVPB Q6H PRN PRN Reason: PAIN 1-6 Last Admin: 06/22/20 15:09 Dose: 1,000 mg Documented by: Collagenase (Santyl -) 1 applic TP DAILY [facility]; Protocol Last Admin: 06/22/20 09:57 Dose: 1 applic Documented by: Heparin Sodium (Porcine) (Heparin -) 5,000 unit SQ BID [facility] Last Admin: 06/22/20 21:26 Dose: 5,000 unit Documented by: Meropenem 1 gm/ Dextrose 100 mls @ 200 mls/hr IVPB BID [facility] Last Admin: 06/22/20 21:25 Dose: 200 mls/hr Documented by: Amino Acids (Clinimix -) 1,000 mls @ 42 mls/hr IV Q24H [facility] Last Admin: 06/22/20 18:22 Dose: 42 mls/hr Documented by: Sodium Chloride (Normal Saline -) 1,000 mls @ 75 mls/hr IV ASDIR [facility] Morphine Sulfate (Morphine Sulfate) 2 mg IVPUSH Q6H PRN PRN Reason: PAIN 7-10 Ondansetron HCl (Zofran Injection) 4 mg IVPUSH Q6H PRN PRN Reason: NAUSEA Last Admin: 06/22/20 19:40 Dose: 4 mg Documented by: Pantoprazole Sodium (Protonix Iv) 40 mg IVPUSH DAILY [facility] Last Admin: 06/22/20 13:22 Dose: 40 mg Documented by: - Objective Vital Signs: Vital Signs Temperature 98.3 F 06/22/20 21:36 Pulse Rate 77 06/22/20 21:36 Respiratory Rate 16 06/22/20 21:36 Blood Pressure 130/59 L 06/22/20 21:36 O2 Sat by Pulse Oximetry (%) 98 06/22/20 21:36 Labs: CBC, BMP 06/22/20 06:50 06/22/20 06:50
[2020-06-23] MEDS: MORPHINE SULFATE 2 MG/ML VIAL IVPUSH PRN ×2 (06:17→15:39)
[2020-06-23] MEDS ORDERED: MEROPENEM 1 GM VIAL (RESTRICTED TO ID) IVPB ONE ×2 (08:46→21:35)
[2020-06-23] MEDS ORDERED: DEXTROSE 5%-WATER 100 ML IVPB ONE ×2 (08:46→21:35)
[2020-06-23] MEDS: MEROPENEM 1 GM in DEXTROSE 5%-WATER 100 ML IVPB SCH ×2 (09:23→21:37)
[2020-06-23] MEDS: PANTOPRAZOLE SODIUM 40 MG VIAL IVPUSH SCH (09:23)
[2020-06-23] MEDS: HEPARIN NA (PORCINE) 5,000 UNITS/ML 1ML VIAL SQ SCH ×2 (09:23→21:38)
[2020-06-23] MEDS: COLLAGENASE CLOSTRIDIUM HIST. 30 GRAMS TUBE TP SCH (09:27)
[2020-06-23 10:35] LABS: BASO % 0.3 % (0-2.0); EOS % 9.9 % (0-4.5); HEMATOCRIT 34.1 % (35.4-49); HEMOGLOBIN 10.9 GM/dL (11.7-16.9); LYMPH % 15.4 % (8-40); MCHC 31.9 g/dl (32.0-35.9); MEAN CELL VOLUME 81.7 fl (80-96); MEAN PLT VOLUME 7.1 fl (7.5-11.1); MONO % 11.5 % (3.8-10.2); NEUT % 62.9 % (42.8-82.8); PLATELET COUNT 353 K/MM3 (134-434); RBC 4.17 M/mm3 (4.00-5.60); WHITE BLOOD COUNT 8.7 K/mm3 (4.0-10.0)
[2020-06-23 11:01] LABS: ALBUMIN 2.4 g/dl (3.4-5.0); BILIRUBIN,TOTAL 0.3 mg/dL (0.2-1); BLOOD UREA NITROGEN 63.7 mg/dL (7-18); CALCIUM 8.5 mg/dL (8.5-10.1); CREATININE 1.5 mg/dL (0.55-1.3)
--- NOTE | 2020-06-23 12:29 | PN ---
Progress Note (short form) - Note Progress Note: Attending Surgeon Seen in f/u VSS AF abdo-distended and tympanitic; no gas in the ostomy bag urine output ?? IMP: sbo PLAN:Continue NPO/NGT; small bowel series 06/25/2020. Chapo Quintero MD FACS
--- NOTE | 2020-06-23 13:36 | PN ---
Progress Note (short form) - Note Progress Note: UROLOGY NOTE 74 year old male with history of CVA, paraplegia, neurogenic bladder with supra-pubic catheter, hypertension, DM, sigmoid volvulus, sacral decubitis ulcer. WBC 8.7 HB 10.9 BUN 63.7 S.Creat 1.5 O/E SPC 28 F drain clear urine. Plan: Renal and pelvic U/S change SPC q 4 weeks
--- NOTE | 2020-06-23 14:47 | PN ---
Progress Note, Physician History of Present Illness: Pt seen and examined at bedside. He is awake and complains of abd distress. - Current Medication List Current Medications: Active Medications Acetaminophen (Ofirmev Injection -) 1,000 mg IVPB Q6H PRN PRN Reason: PAIN 1-6 Last Admin: 06/22/20 15:09 Dose: 1,000 mg Documented by: Collagenase (Santyl -) 1 applic TP DAILY [facility]; Protocol Last Admin: 06/23/20 09:27 Dose: 1 applic Documented by: Heparin Sodium (Porcine) (Heparin -) 5,000 unit SQ BID [facility] Last Admin: 06/23/20 09:23 Dose: 5,000 unit Documented by: Meropenem 1 gm/ Dextrose 100 mls @ 200 mls/hr IVPB BID [facility] Last Admin: 06/23/20 09:23 Dose: 200 mls/hr Documented by: Amino Acids (Clinimix -) 1,000 mls @ 42 mls/hr IV Q24H [facility] Last Admin: 06/22/20 18:22 Dose: 42 mls/hr Documented by: Sodium Chloride (Normal Saline -) 1,000 mls @ 75 mls/hr IV ASDIR [facility] Last Admin: 06/22/20 21:25 Dose: 75 mls/hr Documented by: Morphine Sulfate (Morphine Sulfate) 2 mg IVPUSH Q6H PRN PRN Reason: PAIN 7-10 Last Admin: 06/23/20 06:17 Dose: 2 mg Documented by: Ondansetron HCl (Zofran Injection) 4 mg IVPUSH Q6H PRN PRN Reason: NAUSEA Last Admin: 06/22/20 19:40 Dose: 4 mg Documented by: Pantoprazole Sodium (Protonix Iv) 40 mg IVPUSH DAILY [facility] Last Admin: 06/23/20 09:23 Dose: 40 mg Documented by: - Objective Vital Signs: Vital Signs Temperature 97.7 F 06/23/20 10:00 Pulse Rate 86 06/23/20 10:00 Respiratory Rate 18 06/23/20 10:00 Blood Pressure 133/71 06/23/20 10:00 O2 Sat by Pulse Oximetry (%) 94 L 06/23/20 10:00 Constitutional: Yes: Calm Eyes: Yes: Conjunctiva Clear HENT: Yes: Atraumatic Neck: Yes: Supple Cardiovascular: Yes: S1, S2 Respiratory: Yes: On Nasal O2 Gastrointestinal: Yes: Tenderness Genitourinary: Yes: Rowe Present Musculoskeletal: Yes: Muscle Weakness Edema: LLE: Trace, RLE: Trace Neurological: Yes: Pre-Existing Deficit Labs: CBC, BMP 06/23/20 09:20 06/23/20 09:20 Assessment/Plan Current Medications Generic Name Dose Route Start Last Admin Trade Name Freq PRN Reason Stop Dose Admin Acetaminophen 1,000 mg 06/20/20 04:52 06/22/20 15:09 Ofirmev Injection - IVPB 1,000 mg Q6H PRN Administration PAIN 1-6 Collagenase 1 applic 06/21/20 10:00 06/23/20 09:27 Santyl - TP 1 applic DAILY [facility] Administration Protocol Heparin Sodium (Porcine) 5,000 unit 06/19/20 10:00 06/23/20 09:23 Heparin - SQ 5,000 unit BID [facility] Administration Meropenem 1 gm/ Dextrose 100 mls @ 200 mls/hr 06/20/20 13:00 06/23/20 09:23 IVPB 200 mls/hr BID [facility] Administration As Directed Amino Acids 1,000 mls @ 42 mls/hr 06/22/20 14:30 06/22/20 18:22 Clinimix - IV 42 mls/hr Q24H [facility] Administration Sodium Chloride 1,000 mls @ 75 mls/hr 06/22/20 14:00 06/22/20 21:25 Normal Saline - IV 75 mls/hr ASDIR [facility] Administration Morphine Sulfate 2 mg 06/22/20 16:33 06/23/20 06:17 Morphine Sulfate IVPUSH 2 mg Q6H PRN Administration PAIN 7-10 Ondansetron HCl 4 mg 06/18/20 23:15 06/22/20 19:40 Zofran Injection IVPUSH 4 mg Q6H PRN Administration NAUSEA Pantoprazole Sodium 40 mg 06/22/20 13:15 06/23/20 09:23 Protonix Iv IVPUSH 40 mg DAILY [facility] Administration 1. Acute kidney injury likely secondary to volume depletion/ATN vs. obstruction 2. Distal Small bowel obstruction 3. Hx of Nephrolithiasis with obstruction with indwelling stent 4. Anemia 5. Hypertension 6. Cystitis/Urinary tract infection 7. hypernatremia Plan - cont clinimix - change fluids to 1/2 ns as sodium is rising - potassium stable - renal function improving - repeat labs in am
[2020-06-23] MEDS: ONDANSETRON 4 MG/2 ML VIAL IVPUSH PRN (14:48)
--- NOTE | 2020-06-23 15:09 | PN ---
Progress Note, Physician History of Present Illness: Pt alert, afebrile. Still with abd distension. NGT in place. No acute distress/ - Current Medication List Current Medications: Active Medications Acetaminophen (Ofirmev Injection -) 1,000 mg IVPB Q6H PRN PRN Reason: PAIN 1-6 Last Admin: 06/22/20 15:09 Dose: 1,000 mg Documented by: Collagenase (Santyl -) 1 applic TP DAILY [facility]; Protocol Last Admin: 06/23/20 09:27 Dose: 1 applic Documented by: Heparin Sodium (Porcine) (Heparin -) 5,000 unit SQ BID [facility] Last Admin: 06/23/20 09:23 Dose: 5,000 unit Documented by: Meropenem 1 gm/ Dextrose 100 mls @ 200 mls/hr IVPB BID [facility] Last Admin: 06/23/20 09:23 Dose: 200 mls/hr Documented by: Amino Acids (Clinimix -) 1,000 mls @ 42 mls/hr IV Q24H [facility] Last Admin: 06/22/20 18:22 Dose: 42 mls/hr Documented by: Sodium Chloride (1/2 Normal Saline) 1,000 mls @ 65 mls/hr IV ASDIR [facility] Morphine Sulfate (Morphine Sulfate) 2 mg IVPUSH Q6H PRN PRN Reason: PAIN 7-10 Last Admin: 06/23/20 06:17 Dose: 2 mg Documented by: Ondansetron HCl (Zofran Injection) 4 mg IVPUSH Q6H PRN PRN Reason: NAUSEA Last Admin: 06/23/20 14:48 Dose: 4 mg Documented by: Pantoprazole Sodium (Protonix Iv) 40 mg IVPUSH DAILY [facility] Last Admin: 06/23/20 09:23 Dose: 40 mg Documented by: - Objective Vital Signs: Vital Signs Temperature 97.7 F 06/23/20 10:00 Pulse Rate 86 06/23/20 10:00 Respiratory Rate 18 06/23/20 10:00 Blood Pressure 133/71 06/23/20 10:00 O2 Sat by Pulse Oximetry (%) 94 L 06/23/20 10:00 Constitutional: Yes: No Distress HENT: Yes: Other (NGT) Cardiovascular: Yes: Regular Rate and Rhythm Respiratory: Yes: Regular Gastrointestinal: Yes: Distention, Other (ostomy) Genitourinary: Yes: Other (SPC) Neurological: Yes: Alert, Oriented Labs: CBC, BMP 06/23/20 09:20 06/23/20 09:20 Microbiology 06/18/20 14:10 Back Gram Stain - Final 06/18/20 14:10 Back Wound Culture - Final Non Lactose Fermenting Gnb Non Lactose Fermenting Gnb#2 Lactose Fermenting Neg Bacilli Lactose Fermenting Neg Bacilli#2 Group D Strep Or Entero Coccus 06/18/20 08:00 Urine - Urine Rowe Urine Culture - Final Contaminated: Please Repeat - ....Imaging X-ray: Pending Problem List - Problems (1) Decubitus ulcer of sacral region Code(s): L89.159 - PRESSURE ULCER OF SACRAL REGION, UNSPECIFIED STAGE (2) Abdominal distension Code(s): R14.0 - ABDOMINAL DISTENSION (GASEOUS) (3) Anemia Code(s): D64.9 - ANEMIA, UNSPECIFIED (4) Chronic suprapubic catheter Code(s): Z93.59 - OTHER CYSTOSTOMY STATUS (5) Diabetes Code(s): E11.9 - TYPE 2 DIABETES MELLITUS WITHOUT COMPLICATIONS (6) Functional quadriplegia Code(s): R53.2 - FUNCTIONAL QUADRIPLEGIA (7) HTN (hypertension) Code(s): I10 - ESSENTIAL (PRIMARY) HYPERTENSION (8) SBO (small bowel obstruction) Code(s): K56.609 - UNSP INTESTNL OBST, UNSP TO PARTIAL VERSUS COMPLETE OBST Assessment/Plan - pt still with abd distension, NGT in place, NPO - repeat AXR pending - surgery following - continue Zosyn for now vitals currently stable, afebrile - continue monitor
[2020-06-23] MEDS: SODIUM CHLORIDE 0.45% 1,000 ML IV SCH (15:35)
[2020-06-23] MEDS: AMINO ACIDS 4.25%/D5W 1,000 ML IV SCH (15:36)
[2020-06-23] MEDS: SODIUM CHLORIDE 1,000 ML IV SCH (16:34)
--- NOTE | 2020-06-23 18:45 | PN.GI ---
GI Progress Note Subjective: still with abdominal distention, no output from colostomy - Objective Vital Signs: Vital Signs Temperature 98.4 F 06/23/20 17:41 Pulse Rate 90 06/23/20 17:41 Respiratory Rate 20 06/23/20 17:41 Blood Pressure 121/65 06/23/20 17:41 O2 Sat by Pulse Oximetry (%) 96 06/23/20 15:16 Constitutional: No Distress Eyes: Yes: Conjunctiva Clear HENT: Yes: Atraumatic Neck: Yes: Supple Cardiovascular: Yes: Regular Rate and Rhythm Respiratory: Yes: CTA Bilaterally Gastrointestinal Inspection: Yes: Distention ...Palpate: Yes: Soft. No: Firm/Rigid, Guarding, Hepatomegaly, Mass, Pulsatile Mass, Splenomegaly, Tenderness ...Percussion: Yes: Tympanitic Labs: CBC, BMP 06/23/20 09:20 06/23/20 09:20 Problem List - Problems (1) SBO (small bowel obstruction) Assessment/Plan: r/o pseudobstruction R> continue NGT await small bowel series serial abdominal examination Code(s): K56.609 - UNSP INTESTNL OBST, UNSP TO PARTIAL VERSUS COMPLETE OBST
--- NOTE | 2020-06-23 22:27 | PN ---
Progress Note, Physician - Current Medication List Current Medications: Active Medications Acetaminophen (Ofirmev Injection -) 1,000 mg IVPB Q6H PRN PRN Reason: PAIN 1-6 Last Admin: 06/22/20 15:09 Dose: 1,000 mg Documented by: Collagenase (Santyl -) 1 applic TP DAILY [facility]; Protocol Last Admin: 06/23/20 09:27 Dose: 1 applic Documented by: Heparin Sodium (Porcine) (Heparin -) 5,000 unit SQ BID [facility] Last Admin: 06/23/20 21:38 Dose: 5,000 unit Documented by: Meropenem 1 gm/ Dextrose 100 mls @ 200 mls/hr IVPB BID [facility] Last Admin: 06/23/20 21:37 Dose: 200 mls/hr Documented by: Amino Acids (Clinimix -) 1,000 mls @ 42 mls/hr IV Q24H [facility] Last Admin: 06/23/20 15:36 Dose: 42 mls/hr Documented by: Sodium Chloride (1/2 Normal Saline) 1,000 mls @ 65 mls/hr IV ASDIR [facility] Last Admin: 06/23/20 15:35 Dose: 65 mls/hr Documented by: Morphine Sulfate (Morphine Sulfate) 2 mg IVPUSH Q6H PRN PRN Reason: PAIN 7-10 Last Admin: 06/23/20 15:39 Dose: 2 mg Documented by: Ondansetron HCl (Zofran Injection) 4 mg IVPUSH Q6H PRN PRN Reason: NAUSEA Last Admin: 06/23/20 14:48 Dose: 4 mg Documented by: Pantoprazole Sodium (Protonix Iv) 40 mg IVPUSH DAILY [facility] Last Admin: 06/23/20 09:23 Dose: 40 mg Documented by: - Objective Vital Signs: Vital Signs Temperature 98.4 F 06/23/20 17:41 Pulse Rate 90 06/23/20 17:41 Respiratory Rate 20 06/23/20 17:41 Blood Pressure 121/65 06/23/20 17:41 O2 Sat by Pulse Oximetry (%) 96 06/23/20 15:16 Labs: CBC, BMP 06/23/20 09:20 06/23/20 09:20
[2020-06-24] MEDS: SODIUM CHLORIDE 0.45% 1,000 ML IV SCH ×3 (06:22→22:08)
[2020-06-24] MEDS: ONDANSETRON 4 MG/2 ML VIAL IVPUSH PRN (06:33)
[2020-06-24] MEDS ORDERED: MEROPENEM 1 GM VIAL (RESTRICTED TO ID) IVPB ONE ×2 (08:35→22:04)
[2020-06-24] MEDS ORDERED: DEXTROSE 5%-WATER 100 ML IVPB ONE ×2 (08:35→22:05)
[2020-06-24] MEDS: MORPHINE SULFATE 2 MG/ML VIAL IVPUSH PRN (08:43)
[2020-06-24] MEDS: PANTOPRAZOLE SODIUM 40 MG VIAL IVPUSH SCH (09:00)
[2020-06-24] MEDS: HEPARIN NA (PORCINE) 5,000 UNITS/ML 1ML VIAL SQ SCH ×2 (09:00→22:08)
[2020-06-24] MEDS: MEROPENEM 1 GM in DEXTROSE 5%-WATER 100 ML IVPB SCH ×2 (09:01→22:08)
[2020-06-24] MEDS: COLLAGENASE CLOSTRIDIUM HIST. 30 GRAMS TUBE TP SCH (09:02)
--- NOTE | 2020-06-24 11:38 | PN ---
Progress Note (short form) - Note Progress Note: Attending Surgeon Seen in f/u VSS AF abdo-distended and tympanitic; no gas in the ostomy bag urine output present from SPT IMP: sbo PLAN:Continue NPO/NGT; small bowel series 06/25/2020. Chapo Quintero MD FACS
--- NOTE | 2020-06-24 12:47 | PN ---
Progress Note, Physician History of Present Illness: Pt seen and examined at bedside. No great change in status. - Current Medication List Current Medications: Active Medications Acetaminophen (Ofirmev Injection -) 1,000 mg IVPB Q6H PRN PRN Reason: PAIN 1-6 Last Admin: 06/22/20 15:09 Dose: 1,000 mg Documented by: Collagenase (Santyl -) 1 applic TP DAILY [facility]; Protocol Last Admin: 06/24/20 09:02 Dose: 1 applic Documented by: Heparin Sodium (Porcine) (Heparin -) 5,000 unit SQ BID [facility] Last Admin: 06/24/20 09:00 Dose: 5,000 unit Documented by: Meropenem 1 gm/ Dextrose 100 mls @ 200 mls/hr IVPB BID [facility] Last Admin: 06/24/20 09:01 Dose: 200 mls/hr Documented by: Amino Acids (Clinimix -) 1,000 mls @ 42 mls/hr IV Q24H [facility] Last Admin: 06/23/20 15:36 Dose: 42 mls/hr Documented by: Sodium Chloride (1/2 Normal Saline) 1,000 mls @ 65 mls/hr IV ASDIR [facility] Last Admin: 06/24/20 06:22 Dose: 65 mls/hr Documented by: Morphine Sulfate (Morphine Sulfate) 2 mg IVPUSH Q6H PRN PRN Reason: PAIN 7-10 Last Admin: 06/24/20 08:43 Dose: 2 mg Documented by: Ondansetron HCl (Zofran Injection) 4 mg IVPUSH Q6H PRN PRN Reason: NAUSEA Last Admin: 06/24/20 06:33 Dose: 4 mg Documented by: Pantoprazole Sodium (Protonix Iv) 40 mg IVPUSH DAILY [facility] Last Admin: 06/24/20 09:00 Dose: 40 mg Documented by: - Objective Vital Signs: Vital Signs Temperature 97.8 F 06/24/20 10:00 Pulse Rate 96 H 06/24/20 10:00 Respiratory Rate 18 06/24/20 10:00 Blood Pressure 143/74 06/24/20 10:00 O2 Sat by Pulse Oximetry (%) 98 06/24/20 10:00 Constitutional: Yes: Calm Eyes: Yes: Conjunctiva Clear HENT: Yes: Atraumatic Cardiovascular: Yes: S1, S2 Gastrointestinal: Yes: Distention, Other (ng tube to suction) Genitourinary: Yes: Rowe Present Musculoskeletal: Yes: Muscle Weakness Edema: Yes Edema: LLE: Trace, RLE: Trace Neurological: Yes: Pre-Existing Deficit, Other (awake) Labs: CBC, BMP 06/23/20 09:20 06/23/20 09:20 Assessment/Plan Current Medications Generic Name Dose Route Start Last Admin Trade Name Freq PRN Reason Stop Dose Admin Acetaminophen 1,000 mg 06/20/20 04:52 06/22/20 15:09 Ofirmev Injection - IVPB 1,000 mg Q6H PRN Administration PAIN 1-6 Collagenase 1 applic 06/21/20 10:00 06/24/20 09:02 Santyl - TP 1 applic DAILY [facility] Administration Protocol Heparin Sodium (Porcine) 5,000 unit 06/19/20 10:00 06/24/20 09:00 Heparin - SQ 5,000 unit BID [facility] Administration Meropenem 1 gm/ Dextrose 100 mls @ 200 mls/hr 06/20/20 13:00 06/24/20 09:01 IVPB 200 mls/hr BID [facility] Administration As Directed Amino Acids 1,000 mls @ 42 mls/hr 06/22/20 14:30 06/23/20 15:36 Clinimix - IV 42 mls/hr Q24H [facility] Administration Sodium Chloride 1,000 mls @ 65 mls/hr 06/23/20 15:00 06/24/20 06:22 1/2 Normal Saline IV 65 mls/hr ASDIR [facility] Administration Morphine Sulfate 2 mg 06/22/20 16:33 06/24/20 08:43 Morphine Sulfate IVPUSH 2 mg Q6H PRN Administration PAIN 7-10 Ondansetron HCl 4 mg 06/18/20 23:15 06/24/20 06:33 Zofran Injection IVPUSH 4 mg Q6H PRN Administration NAUSEA Pantoprazole Sodium 40 mg 06/22/20 13:15 06/24/20 09:00 Protonix Iv IVPUSH 40 mg DAILY [facility] Administration 1. Acute kidney injury likely secondary to volume depletion/ATN vs. obstruction 2. Distal Small bowel obstruction 3. Hx of Nephrolithiasis with obstruction with indwelling stent 4. Anemia 5. Hypertension 6. Cystitis/Urinary tract infection 7. hypernatremia Plan - check cmp - follow labs - cont fluids, pt on clinimix and 1/2 ns - surgery follow up - pt with ng tube to suction
--- NOTE | 2020-06-24 15:17 | PN ---
Progress Note, Physician History of Present Illness: Pt still with abd distension with mild discomfort. NGT in place. - Current Medication List Current Medications: Active Medications Acetaminophen (Ofirmev Injection -) 1,000 mg IVPB Q6H PRN PRN Reason: PAIN 1-6 Last Admin: 06/22/20 15:09 Dose: 1,000 mg Documented by: Collagenase (Santyl -) 1 applic TP DAILY [facility]; Protocol Last Admin: 06/24/20 09:02 Dose: 1 applic Documented by: Heparin Sodium (Porcine) (Heparin -) 5,000 unit SQ BID [facility] Last Admin: 06/24/20 09:00 Dose: 5,000 unit Documented by: Meropenem 1 gm/ Dextrose 100 mls @ 200 mls/hr IVPB BID [facility] Last Admin: 06/24/20 09:01 Dose: 200 mls/hr Documented by: Amino Acids (Clinimix -) 1,000 mls @ 42 mls/hr IV Q24H [facility] Last Admin: 06/23/20 15:36 Dose: 42 mls/hr Documented by: Sodium Chloride (1/2 Normal Saline) 1,000 mls @ 65 mls/hr IV ASDIR [facility] Last Admin: 06/24/20 06:22 Dose: 65 mls/hr Documented by: Morphine Sulfate (Morphine Sulfate) 2 mg IVPUSH Q6H PRN PRN Reason: PAIN 7-10 Last Admin: 06/24/20 08:43 Dose: 2 mg Documented by: Ondansetron HCl (Zofran Injection) 4 mg IVPUSH Q6H PRN PRN Reason: NAUSEA Last Admin: 06/24/20 06:33 Dose: 4 mg Documented by: Pantoprazole Sodium (Protonix Iv) 40 mg IVPUSH DAILY [facility] Last Admin: 06/24/20 09:00 Dose: 40 mg Documented by: - Objective Vital Signs: Vital Signs Temperature 98.5 F 06/24/20 15:10 Pulse Rate 93 H 06/24/20 15:10 Respiratory Rate 18 06/24/20 15:10 Blood Pressure 126/61 06/24/20 15:10 O2 Sat by Pulse Oximetry (%) 98 06/24/20 15:10 Constitutional: Yes: No Distress Cardiovascular: Yes: Regular Rate and Rhythm Respiratory: Yes: Regular Gastrointestinal: Yes: Abdomen, Obese, Distention, Other (ostomy) Integumentary: Yes: Pressure Ulcer Neurological: Yes: Alert Labs: CBC, BMP 06/23/20 09:20 06/23/20 09:20 Microbiology 06/18/20 14:10 Back Gram Stain - Final 06/18/20 14:10 Back Wound Culture - Final Non Lactose Fermenting Gnb Non Lactose Fermenting Gnb#2 Lactose Fermenting Neg Bacilli Lactose Fermenting Neg Bacilli#2 Group D Strep Or Entero Coccus 06/18/20 08:00 Urine - Urine Rowe Urine Culture - Final Contaminated: Please Repeat Problem List - Problems (1) Decubitus ulcer of sacral region Code(s): L89.159 - PRESSURE ULCER OF SACRAL REGION, UNSPECIFIED STAGE (2) Abdominal distension Code(s): R14.0 - ABDOMINAL DISTENSION (GASEOUS) (3) Anemia Code(s): D64.9 - ANEMIA, UNSPECIFIED (4) Chronic suprapubic catheter Code(s): Z93.59 - OTHER CYSTOSTOMY STATUS (5) Diabetes Code(s): E11.9 - TYPE 2 DIABETES MELLITUS WITHOUT COMPLICATIONS (6) Functional quadriplegia Code(s): R53.2 - FUNCTIONAL QUADRIPLEGIA (7) HTN (hypertension) Code(s): I10 - ESSENTIAL (PRIMARY) HYPERTENSION (8) SBO (small bowel obstruction) Code(s): K56.609 - UNSP INTESTNL OBST, UNSP TO PARTIAL VERSUS COMPLETE OBST Assessment/Plan - pt still with abd distension, NGT in place, awaiting small bowel series - surgery following -continue antibiotics for now -repeat urine culture, f/u isolates of DU wound culture vitals currently stable, afebrile - continue monitor
[2020-06-24] MEDS: AMINO ACIDS 4.25%/D5W 1,000 ML IV SCH (15:39)
--- NOTE | 2020-06-24 23:02 | PN ---
Progress Note, Physician History of Present Illness: No new complaints - Current Medication List Current Medications: Active Medications Acetaminophen (Ofirmev Injection -) 1,000 mg IVPB Q6H PRN PRN Reason: PAIN 1-6 Last Admin: 06/22/20 15:09 Dose: 1,000 mg Documented by: Collagenase (Santyl -) 1 applic TP DAILY [facility]; Protocol Last Admin: 06/24/20 09:02 Dose: 1 applic Documented by: Heparin Sodium (Porcine) (Heparin -) 5,000 unit SQ BID [facility] Last Admin: 06/24/20 22:08 Dose: 5,000 unit Documented by: Meropenem 1 gm/ Dextrose 100 mls @ 200 mls/hr IVPB BID [facility] Last Admin: 06/24/20 22:08 Dose: 200 mls/hr Documented by: Amino Acids (Clinimix -) 1,000 mls @ 42 mls/hr IV Q24H [facility] Last Admin: 06/24/20 15:39 Dose: 42 mls/hr Documented by: Sodium Chloride (1/2 Normal Saline) 1,000 mls @ 65 mls/hr IV ASDIR [facility] Last Admin: 06/24/20 22:08 Dose: 65 mls/hr Documented by: Morphine Sulfate (Morphine Sulfate) 2 mg IVPUSH Q6H PRN PRN Reason: PAIN 7-10 Last Admin: 06/24/20 08:43 Dose: 2 mg Documented by: Ondansetron HCl (Zofran Injection) 4 mg IVPUSH Q6H PRN PRN Reason: NAUSEA Last Admin: 06/24/20 06:33 Dose: 4 mg Documented by: Pantoprazole Sodium (Protonix Iv) 40 mg IVPUSH DAILY [facility] Last Admin: 06/24/20 09:00 Dose: 40 mg Documented by: - Objective Vital Signs: Vital Signs Temperature 98.5 F 06/24/20 15:10 Pulse Rate 93 H 06/24/20 15:10 Respiratory Rate 18 06/24/20 15:10 Blood Pressure 126/61 06/24/20 15:10 O2 Sat by Pulse Oximetry (%) 98 06/24/20 15:10 Neck: Yes: WNL, Supple Cardiovascular: Yes: WNL, Regular Rate and Rhythm Respiratory: Yes: WNL, Regular, CTA Bilaterally Gastrointestinal: Yes: Soft, Other ((+) colostomy) Labs: CBC, BMP 06/23/20 09:20 06/23/20 09:20 Problem List - Problems (1) SBO (small bowel obstruction) Assessment/Plan: Cont NGT to suction Small bowel series in am As per surgery Cont IVF Code(s): K56.609 - UNSP INTESTNL OBST, UNSP TO PARTIAL VERSUS COMPLETE OBST (2) Decubitus ulcer of sacral region Assessment/Plan: Wound culture noted Cont wound care Cont IV meropenem Code(s): L89.159 - PRESSURE ULCER OF SACRAL REGION, UNSPECIFIED STAGE (3) Anemia Assessment/Plan: Anemia of chronic dz Code(s): D64.9 - ANEMIA, UNSPECIFIED (4) HTN (hypertension) Assessment/Plan: Pt not on any antihypertensives Code(s): I10 - ESSENTIAL (PRIMARY) HYPERTENSION (5) Neurogenic bladder Code(s): N31.9 - NEUROMUSCULAR DYSFUNCTION OF BLADDER, UNSPECIFIED (6) Chronic suprapubic catheter Code(s): Z93.59 - OTHER CYSTOSTOMY STATUS (7) Functional quadriplegia Code(s): R53.2 - FUNCTIONAL QUADRIPLEGIA
[2020-06-25] MEDS: MORPHINE SULFATE 2 MG/ML VIAL IVPUSH PRN (03:50)
[2020-06-25 08:29] LABS: POTASSIUM 3.1 mmol/L (3.5-5.1)
[2020-06-25 08:43] LABS: ALBUMIN 1.7 g/dl (3.4-5.0); BILIRUBIN,TOTAL 0.4 mg/dL (0.2-1); MAGNESIUM 1.5 mg/dL (1.8-2.4)
[2020-06-25 08:46] LABS: BLOOD UREA NITROGEN 36.7 mg/dL (7-18)
--- NOTE | 2020-06-25 08:53 | PN ---
Progress Note (short form) - Note Progress Note: Surgery: no complaints of nausea. Vital Signs Period Temp Pulse Resp BP Sys/Bradley Pulse Ox Last 24 Hr 97.8 F-98.6 F 82-96 18-18 123-143/61-74 98-100 NGT: 300 light brown/green fluid GEN: Alert, NAD ABD: soft, slight distention, non-tender. Ostomy with liquid stool and flatus and viable A/P: 74 yo male with SBO h/o colostomy, pt with sacral wound and left urethral stent Recommend to continue npo/IV hydration and continue the ngt. He does have flatus and stool in his ostomy today but would recommend to continue ngt decompression. On previous admission, SBOs have taken time to resolve. Replete electrolytes D/w Dr. Quintero <Akanksha Peters - Last Filed: 06/25/20 08:53> - Note Progress Note: Attending Surgeon: I personally saw and examined the patient. My examination reveals a patient with recurrent SBO. I discussed the case with the surgical PA and agree with their findings and plan of care with any exceptions as noted. ~ Chapo Quintero MD, FACS <Chapo Quintero - Last Filed: 07/03/20 07:49> Problem List - Problems (1) Abdominal distension Code(s): R14.0 - ABDOMINAL DISTENSION (GASEOUS) <Akanksha Peters - Last Filed: 06/25/20 08:53>
[2020-06-25] MEDS ORDERED: MAGNESIUM SULF 50% (8.12 MEQ/2 ML-1 GM VIAL) IVPB ONE ×2 (08:58→12:57)
[2020-06-25] MEDS ORDERED: MEROPENEM 1 GM VIAL (RESTRICTED TO ID) IVPB ONE ×2 (08:59→22:36)
[2020-06-25] MEDS ORDERED: DEXTROSE 5%-WATER 100 ML IVPB ONE ×2 (08:59→22:36)
[2020-06-25] MEDS ORDERED: MAGNESIUM SULFATE IN WATER 2 GM/50 ML IVPB IVPB ONE ×2 (09:00→13:00)
[2020-06-25 09:03] LABS: CALCIUM 6.5 mg/dL (8.5-10.1)
[2020-06-25] MEDS: MEROPENEM 1 GM in DEXTROSE 5%-WATER 100 ML IVPB SCH ×2 (09:07→22:48)
[2020-06-25] MEDS: PANTOPRAZOLE SODIUM 40 MG VIAL IVPUSH SCH (09:07)
[2020-06-25] MEDS: HEPARIN NA (PORCINE) 5,000 UNITS/ML 1ML VIAL SQ SCH ×2 (09:07→22:49)
--- NOTE | 2020-06-25 11:40 | PN ---
Progress Note, Physician History of Present Illness: ostomy starting to work abd mild distension ng in place min drainage - Current Medication List Current Medications: Active Medications Acetaminophen (Ofirmev Injection -) 1,000 mg IVPB Q6H PRN PRN Reason: PAIN 1-6 Last Admin: 06/22/20 15:09 Dose: 1,000 mg Documented by: Collagenase (Santyl -) 1 applic TP DAILY [facility]; Protocol Last Admin: 06/24/20 09:02 Dose: 1 applic Documented by: Heparin Sodium (Porcine) (Heparin -) 5,000 unit SQ BID [facility] Last Admin: 06/25/20 09:07 Dose: 5,000 unit Documented by: Meropenem 1 gm/ Dextrose 100 mls @ 200 mls/hr IVPB BID [facility] Last Admin: 06/25/20 09:07 Dose: 200 mls/hr Documented by: Amino Acids (Clinimix -) 1,000 mls @ 42 mls/hr IV Q24H [facility] Last Admin: 06/24/20 15:39 Dose: 42 mls/hr Documented by: Potassium Chloride (Potassium Chloride 10 Meq Premix Ivpb -) 10 meq in 100 mls @ 100 mls/hr IVPB Q60M [facility] Stop: 06/25/20 11:59 Sodium Bicarbonate 75 meq/Potassium Chloride 40 meq/Sodium Chloride 1,095 mls @ 75 mls/hr IV Q14H [facility] Ondansetron HCl (Zofran Injection) 4 mg IVPUSH Q6H PRN PRN Reason: NAUSEA Last Admin: 06/24/20 06:33 Dose: 4 mg Documented by: Pantoprazole Sodium (Protonix Iv) 40 mg IVPUSH DAILY [facility] Last Admin: 06/25/20 09:07 Dose: 40 mg Documented by: - Objective Vital Signs: Vital Signs Temperature 98.5 F 06/25/20 08:48 Pulse Rate 82 06/25/20 08:48 Respiratory Rate 18 06/25/20 08:48 Blood Pressure 138/67 06/25/20 08:48 O2 Sat by Pulse Oximetry (%) 100 06/25/20 08:48 Constitutional: Yes: Calm, Mild Distress Cardiovascular: Yes: S1, S2 Respiratory: Yes: Regular, CTA Bilaterally Gastrointestinal: Yes: Normal Bowel Sounds, Soft Musculoskeletal: Yes: WNL Extremities: Yes: WNL Neurological: Yes: Alert Psychiatric: Yes: Alert Labs: CBC, BMP 06/23/20 09:20 06/25/20 06:40 Assessment/Plan Problem List - Problems (1) Abdominal distension Code(s): R14.0 - ABDOMINAL DISTENSION (GASEOUS) (2) Abdominal pain Code(s): R10.9 - UNSPECIFIED ABDOMINAL PAIN Qualifiers: Abdominal location: generalized Qualified Code(s): R10.84 - Generalized abdominal pain (3) Chronic suprapubic catheter Code(s): Z93.59 - OTHER CYSTOSTOMY STATUS (4) Diabetes Code(s): E11.9 - TYPE 2 DIABETES MELLITUS WITHOUT COMPLICATIONS (5) Functional quadriplegia Code(s): R53.2 - FUNCTIONAL QUADRIPLEGIA (6) HTN (hypertension) Code(s): I10 - ESSENTIAL (PRIMARY) HYPERTENSION (7) SBO (small bowel obstruction) Code(s): K56.609 - UNSP INTESTNL OBST, UNSP TO PARTIAL VERSUS COMPLETE OBST (8) Sacral decubitus ulcer, stage IV Code(s): L89.154 - PRESSURE ULCER OF SACRAL REGION, STAGE 4 (9) Severe malnutrition Code(s): E43 - UNSPECIFIED SEVERE PROTEIN-CALORIE MALNUTRITIO plan continue abx as per surgery hydration gi on board rest as per the team
--- NOTE | 2020-06-25 11:59 | PN ---
Progress Note, Physician - Current Medication List Current Medications: Active Medications Acetaminophen (Ofirmev Injection -) 1,000 mg IVPB Q6H PRN PRN Reason: PAIN 1-6 Last Admin: 06/22/20 15:09 Dose: 1,000 mg Documented by: Collagenase (Santyl -) 1 applic TP DAILY [facility]; Protocol Last Admin: 06/24/20 09:02 Dose: 1 applic Documented by: Heparin Sodium (Porcine) (Heparin -) 5,000 unit SQ BID [facility] Last Admin: 06/25/20 09:07 Dose: 5,000 unit Documented by: Meropenem 1 gm/ Dextrose 100 mls @ 200 mls/hr IVPB BID [facility] Last Admin: 06/25/20 09:07 Dose: 200 mls/hr Documented by: Amino Acids (Clinimix -) 1,000 mls @ 42 mls/hr IV Q24H [facility] Last Admin: 06/24/20 15:39 Dose: 42 mls/hr Documented by: Potassium Chloride (Potassium Chloride 10 Meq Premix Ivpb -) 10 meq in 100 mls @ 100 mls/hr IVPB Q60M [facility] Stop: 06/25/20 11:59 Sodium Bicarbonate 75 meq/Potassium Chloride 40 meq/Sodium Chloride 1,095 mls @ 75 mls/hr IV Q14H [facility] Ondansetron HCl (Zofran Injection) 4 mg IVPUSH Q6H PRN PRN Reason: NAUSEA Last Admin: 06/24/20 06:33 Dose: 4 mg Documented by: Pantoprazole Sodium (Protonix Iv) 40 mg IVPUSH DAILY [facility] Last Admin: 06/25/20 09:07 Dose: 40 mg Documented by: - Objective Vital Signs: Vital Signs Temperature 98.5 F 06/25/20 08:48 Pulse Rate 82 06/25/20 08:48 Respiratory Rate 18 06/25/20 08:48 Blood Pressure 138/67 06/25/20 08:48 O2 Sat by Pulse Oximetry (%) 100 06/25/20 08:48 Labs: CBC, BMP 06/23/20 09:20 06/25/20 06:40
[2020-06-25] MEDS: KCL 10 MEQ IVPB 10 MEQ/100 ML INFUS.BAG IVPB SCH ×4 (12:41→14:41)
[2020-06-25] MEDS: COLLAGENASE CLOSTRIDIUM HIST. 30 GRAMS TUBE TP SCH (12:44)
--- NOTE | 2020-06-25 13:01 | PN ---
Progress Note, Physician History of Present Illness: Seem and examined at the bedside awake and alert abdominal pain is improved no sob, cp, fever or chills making urine remains NPO on IV clinimix - Current Medication List Current Medications: Active Medications Acetaminophen (Ofirmev Injection -) 1,000 mg IVPB Q6H PRN PRN Reason: PAIN 1-6 Last Admin: 06/22/20 15:09 Dose: 1,000 mg Documented by: Collagenase (Santyl -) 1 applic TP DAILY [facility]; Protocol Last Admin: 06/25/20 12:44 Dose: 1 applic Documented by: Heparin Sodium (Porcine) (Heparin -) 5,000 unit SQ BID [facility] Last Admin: 06/25/20 09:07 Dose: 5,000 unit Documented by: Meropenem 1 gm/ Dextrose 100 mls @ 200 mls/hr IVPB BID [facility] Last Admin: 06/25/20 09:07 Dose: 200 mls/hr Documented by: Amino Acids (Clinimix -) 1,000 mls @ 42 mls/hr IV Q24H [facility] Last Admin: 06/24/20 15:39 Dose: 42 mls/hr Documented by: Sodium Bicarbonate 75 meq/Potassium Chloride 40 meq/Sodium Chloride 1,095 mls @ 75 mls/hr IV Q14H [facility] Ondansetron HCl (Zofran Injection) 4 mg IVPUSH Q6H PRN PRN Reason: NAUSEA Last Admin: 06/24/20 06:33 Dose: 4 mg Documented by: Pantoprazole Sodium (Protonix Iv) 40 mg IVPUSH DAILY [facility] Last Admin: 06/25/20 09:07 Dose: 40 mg Documented by: - Objective Vital Signs: Vital Signs Temperature 98.5 F 06/25/20 08:48 Pulse Rate 82 06/25/20 08:48 Respiratory Rate 18 06/25/20 08:48 Blood Pressure 138/67 06/25/20 08:48 O2 Sat by Pulse Oximetry (%) 100 06/25/20 08:48 Constitutional: Yes: No Distress HENT: Yes: Atraumatic Neck: Yes: Supple Cardiovascular: Yes: Regular Rate and Rhythm Respiratory: Yes: Regular Gastrointestinal: Yes: Soft Extremities: No: Cyanosis Edema: No Neurological: Yes: Alert Labs: CBC, BMP 06/23/20 09:20 09/14/20 06:40 Assessment/Plan 74 year old male with history of CVA, paraplegia, neurogenic bladder with supra-pubic catheter, hypertension, DM, sigmoid volvulus, sacral decubitis ulcer who presented with lower abdominal pain and found to small bowel obstruction and acute kidney injury. 1. Acute kidney injury likely secondary to volume depletion/ATN vs. obstruction 2. Distal Small bowel obstruction 3. Hx of Nephrolithiasis with obstruction with indwelling stent 4. Anemia 5. Hypertension 6. Cystitis/Urinary tract infection 7. Non aniion gap metabolic acidosis Renal function improved Continue Clinmix for nutrition support Change IVF to 1/2 NS with bicarbonate and KCL given acidosis/hypokalemia/hyponatremia CT of the Abd/Pelvis showed no obstruction and indwelling stent. Urology following Trend H/H, no acute need for transfusion BP is stable, trend for now. Continue antibiotics as per primary team. General surgery following for SBO Thank you Arias Eubanks DO
[2020-06-25] MEDS: AMINO ACIDS 4.25%/D5W 1,000 ML IV SCH (15:00)
[2020-06-25] MEDS: SODIUM BICARBONATE IV SCH (15:07)
[2020-06-25] MEDS: [UNRECOGNIZED DRUG - OTHER] IV SCH (15:07)
[2020-06-25] MEDS: POTASSIUM CHLORIDE IV SCH (15:07)
[2020-06-25] MEDS ORDERED: ACETAMINOPHEN 1000 MG/100 ML VIAL (NON FORMULARY) IVPB ONE (20:27)
--- NOTE | 2020-06-25 21:01 | PN ---
Progress Note, Physician History of Present Illness: NGT still w/ drainage - Current Medication List Current Medications: Active Medications Acetaminophen (Ofirmev Injection -) 1,000 mg IVPB Q6H PRN PRN Reason: PAIN 1-6 Last Admin: 06/22/20 15:09 Dose: 1,000 mg Documented by: Collagenase (Santyl -) 1 applic TP DAILY [facility]; Protocol Last Admin: 06/25/20 12:44 Dose: 1 applic Documented by: Heparin Sodium (Porcine) (Heparin -) 5,000 unit SQ BID [facility] Last Admin: 06/25/20 09:07 Dose: 5,000 unit Documented by: Meropenem 1 gm/ Dextrose 100 mls @ 200 mls/hr IVPB BID [facility] Last Admin: 06/25/20 09:07 Dose: 200 mls/hr Documented by: Amino Acids (Clinimix -) 1,000 mls @ 42 mls/hr IV Q24H [facility] Last Admin: 06/25/20 15:00 Dose: 42 mls/hr Documented by: Sodium Bicarbonate 75 meq/Potassium Chloride 40 meq/Sodium Chloride 1,095 mls @ 75 mls/hr IV Q14H [facility] Last Admin: 06/25/20 15:07 Dose: 75 mls/hr Documented by: Ondansetron HCl (Zofran Injection) 4 mg IVPUSH Q6H PRN PRN Reason: NAUSEA Last Admin: 06/24/20 06:33 Dose: 4 mg Documented by: Pantoprazole Sodium (Protonix Iv) 40 mg IVPUSH DAILY [facility] Last Admin: 06/25/20 09:07 Dose: 40 mg Documented by: - Objective Vital Signs: Vital Signs Temperature 98.3 F 06/25/20 20:19 Pulse Rate 84 06/25/20 20:19 Respiratory Rate 18 06/25/20 20:19 Blood Pressure 146/73 06/25/20 20:19 O2 Sat by Pulse Oximetry (%) 98 06/25/20 20:19 Cardiovascular: Yes: WNL, Regular Rate and Rhythm Respiratory: Yes: WNL, Regular, CTA Bilaterally Gastrointestinal: Yes: Soft, Other ((+) colostomy w/ liquid stool) Integumentary: Yes: Other (Sacral ulcer) Labs: CBC, BMP 06/23/20 09:20 06/25/20 06:40 Problem List - Problems (1) SBO (small bowel obstruction) Assessment/Plan: Cont NGT to suction Small bowel series as per surgery Cont IVF Code(s): K56.609 - UNSP INTESTNL OBST, UNSP TO PARTIAL VERSUS COMPLETE OBST (2) Decubitus ulcer of sacral region Assessment/Plan: Wound culture noted Cont wound care Cont IV meropenem Code(s): L89.159 - PRESSURE ULCER OF SACRAL REGION, UNSPECIFIED STAGE (3) Anemia Assessment/Plan: Anemia of chronic dz Code(s): D64.9 - ANEMIA, UNSPECIFIED (4) HTN (hypertension) Assessment/Plan: Pt not on any antihypertensives Code(s): I10 - ESSENTIAL (PRIMARY) HYPERTENSION (5) Neurogenic bladder Code(s): N31.9 - NEUROMUSCULAR DYSFUNCTION OF BLADDER, UNSPECIFIED (6) Chronic suprapubic catheter Code(s): Z93.59 - OTHER CYSTOSTOMY STATUS (7) Functional quadriplegia Code(s): R53.2 - FUNCTIONAL QUADRIPLEGIA
[2020-06-26] MEDS: KCL 10 MEQ IVPB 10 MEQ/100 ML INFUS.BAG IVPB SCH ×4 (00:53→03:36)
[2020-06-26] MEDS: SODIUM BICARBONATE IV SCH (03:18)
[2020-06-26] MEDS: POTASSIUM CHLORIDE IV SCH (03:18)
[2020-06-26] MEDS: [UNRECOGNIZED DRUG - OTHER] IV SCH (03:18)
--- NOTE | 2020-06-26 07:56 | PN ---
Progress Note, Physician History of Present Illness: patient looks better colostomy fning - Current Medication List Current Medications: Active Medications Acetaminophen (Ofirmev Injection -) 1,000 mg IVPB Q6H PRN PRN Reason: PAIN 1-6 Last Admin: 06/22/20 15:09 Dose: 1,000 mg Documented by: Collagenase (Santyl -) 1 applic TP DAILY [facility]; Protocol Last Admin: 06/25/20 12:44 Dose: 1 applic Documented by: Heparin Sodium (Porcine) (Heparin -) 5,000 unit SQ BID [facility] Last Admin: 06/25/20 22:49 Dose: 5,000 unit Documented by: Meropenem 1 gm/ Dextrose 100 mls @ 200 mls/hr IVPB BID [facility] Last Admin: 06/25/20 22:48 Dose: 200 mls/hr Documented by: Amino Acids (Clinimix -) 1,000 mls @ 42 mls/hr IV Q24H [facility] Last Admin: 06/25/20 15:00 Dose: 42 mls/hr Documented by: Sodium Bicarbonate 75 meq/Potassium Chloride 40 meq/Sodium Chloride 1,095 mls @ 75 mls/hr IV Q14H [facility] Last Admin: 06/26/20 03:18 Dose: Not Given Documented by: Ondansetron HCl (Zofran Injection) 4 mg IVPUSH Q6H PRN PRN Reason: NAUSEA Last Admin: 06/24/20 06:33 Dose: 4 mg Documented by: Pantoprazole Sodium (Protonix Iv) 40 mg IVPUSH DAILY [facility] Last Admin: 06/25/20 09:07 Dose: 40 mg Documented by: - Objective Vital Signs: Vital Signs Temperature 97.7 F 06/26/20 06:00 Pulse Rate 78 06/26/20 06:00 Respiratory Rate 18 06/26/20 06:00 Blood Pressure 140/66 06/26/20 06:00 O2 Sat by Pulse Oximetry (%) 100 06/26/20 06:00 Constitutional: Yes: No Distress, Calm Cardiovascular: Yes: S1, S2 Respiratory: Yes: Regular, CTA Bilaterally Gastrointestinal: Yes: Normal Bowel Sounds, Soft, Other (ostomy working, ng tube in place) Musculoskeletal: Yes: WNL Extremities: Yes: WNL Neurological: Yes: Alert, Oriented Psychiatric: Yes: Alert, Oriented Labs: CBC, BMP 06/23/20 09:20 Assessment/Plan Problem List - Problems (1) Abdominal distension Code(s): R14.0 - ABDOMINAL DISTENSION (GASEOUS) (2) Abdominal pain Code(s): R10.9 - UNSPECIFIED ABDOMINAL PAIN Qualifiers: Abdominal location: generalized Qualified Code(s): R10.84 - Generalized abdominal pain (3) Chronic suprapubic catheter Code(s): Z93.59 - OTHER CYSTOSTOMY STATUS (4) Diabetes Code(s): E11.9 - TYPE 2 DIABETES MELLITUS WITHOUT COMPLICATIONS (5) Functional quadriplegia Code(s): R53.2 - FUNCTIONAL QUADRIPLEGIA (6) HTN (hypertension) Code(s): I10 - ESSENTIAL (PRIMARY) HYPERTENSION (7) SBO (small bowel obstruction) Code(s): K56.609 - UNSP INTESTNL OBST, UNSP TO PARTIAL VERSUS COMPLETE OBST (8) Sacral decubitus ulcer, stage IV Code(s): L89.154 - PRESSURE ULCER OF SACRAL REGION, STAGE 4 (9) Severe malnutrition Code(s): E43 - UNSPECIFIED SEVERE PROTEIN-CALORIE MALNUTRITIO plan continue abx as per surgery hydration gi on board rest as per the team await for final plan from surgery
[2020-06-26 08:01] LABS: BLOOD UREA NITROGEN 38.1 mg/dL (7-18); CALCIUM 7.6 mg/dL (8.5-10.1); CREATININE 0.9 mg/dL (0.55-1.3); POTASSIUM 4.5 mmol/L (3.5-5.1)
[2020-06-26 08:44] LABS: PHOSPHOROUS 1.1 mg/dL (2.5-4.9)
[2020-06-26] MEDS ORDERED: DEXTROSE 5%-WATER 100 ML IVPB ONE ×2 (09:40→20:57)
[2020-06-26] MEDS ORDERED: MEROPENEM 1 GM VIAL (RESTRICTED TO ID) IVPB ONE ×2 (09:40→20:57)
[2020-06-26] MEDS: PANTOPRAZOLE SODIUM 40 MG VIAL IVPUSH SCH (09:43)
[2020-06-26] MEDS: MEROPENEM 1 GM in DEXTROSE 5%-WATER 100 ML IVPB SCH ×2 (09:43→21:52)
[2020-06-26] MEDS: COLLAGENASE CLOSTRIDIUM HIST. 30 GRAMS TUBE TP SCH (09:47)
--- NOTE | 2020-06-26 10:40 | PN ---
Progress Note (short form) - Note Progress Note: Surgery: No issues overnight. No complaints currently. No n/v Vital Signs Temp 98.0 F 06/26/20 10:00 Pulse 83 06/26/20 10:00 Resp 18 06/26/20 10:00 BP 133/66 06/26/20 10:00 Pulse Ox 99 06/26/20 10:00 Intake & Output 06/25/20 06/25/20 06/26/20 11:59 23:59 11:59 Intake Total 749 862 Output Total 450 1050 1550 Balance 299 -1050 -688 Intake: IV 749 462 1/2 Normal Saline 1,000 455 ml @ 65 mls/hr IV ASD[facility] Rx#:[id number] clinamix at 42ml/hr 294 462 IVPB 400 Output: Drainage 100 100 500 NG TUBE 100 100 500 Urine 350 600 750 Soriano 350 600 750 Fecal Drainage 350 300 Other: Voiding Method Indwelling Catheter Indwelling Catheter Bowel Movement Yes Yes Yes # Bowel Movements 1 1 CBC, BMP 06/23/20 09:20 06/26/20 06:15 NGT: 500ml bilious drainage overnight GEN: Alert, NAD ABD: soft, nondistended, non-tender. Ostomy with moderate amount liquid stool and flatus and viable. 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 NGT output noted -Tube to gravity (bike technician to Bile bag or soriano bag) will check output later today -Possible clears this evening -Continue npo, IV hydration -Replete electrolytes- phosphorus ordered D/w Dr. Quintero <Yecenia House - Last Filed: 06/26/20 10:46> - Note Progress Note: Attending Surgeon: I personally saw and examined the patient. My examination reveals a patient with a recurrent SBO. I discussed the case with the surgical PA and agree with their findings and plan of care with any exceptions as noted. ~ Chapo Quintero MD, FACS <Chapo Quintero - Last Filed: 07/03/20 07:48>
[2020-06-26] MEDS ORDERED: SODIUM PHOSPHATE - 15 MM in SODIUM CHLORIDE 250 ML IVPB ONE (11:00)
[2020-06-26] MEDS ORDERED: SODIUM PHOSPHATE - 30 MM in SODIUM CHLORIDE 500 ML IVPB ONE (11:00)
--- NOTE | 2020-06-26 12:16 | PN ---
Progress Note, Physician History of Present Illness: Seem and examined at the bedside awake and alert abdominal pain is improved no sob, cp, fever or chills making urine remains NPO on IV clinimix - Current Medication List Current Medications: Active Medications Acetaminophen (Ofirmev Injection -) 1,000 mg IVPB Q6H PRN PRN Reason: PAIN 1-6 Last Admin: 06/22/20 15:09 Dose: 1,000 mg Documented by: Collagenase (Santyl -) 1 applic TP DAILY [facility]; Protocol Last Admin: 06/26/20 09:47 Dose: 1 applic Documented by: Meropenem 1 gm/ Dextrose 100 mls @ 200 mls/hr IVPB BID [facility] Last Admin: 06/26/20 09:43 Dose: 200 mls/hr Documented by: Sodium Phosphate 30 mm/ Sodium (Chloride) 510 mls @ 63.75 mls/hr IVPB ONCE ONE Stop: 06/26/20 18:59 Potassium Chloride 40 meq/ (Amino Acids) 1,020 mls @ 42 mls/hr IVPB Q24H [facility] Ondansetron HCl (Zofran Injection) 4 mg IVPUSH Q6H PRN PRN Reason: NAUSEA Last Admin: 06/24/20 06:33 Dose: 4 mg Documented by: Pantoprazole Sodium (Protonix Iv) 40 mg IVPUSH DAILY [facility] Last Admin: 06/26/20 09:43 Dose: 40 mg Documented by: - Objective Vital Signs: Vital Signs Temperature 98.0 F 06/26/20 10:00 Pulse Rate 83 06/26/20 10:00 Respiratory Rate 18 06/26/20 10:00 Blood Pressure 133/66 06/26/20 10:00 O2 Sat by Pulse Oximetry (%) 99 06/26/20 10:00 Constitutional: Yes: No Distress HENT: Yes: Atraumatic Neck: Yes: Supple Cardiovascular: Yes: Regular Rate and Rhythm Respiratory: Yes: Regular Gastrointestinal: Yes: Soft, Distention. No: Tenderness Extremities: No: Cyanosis Edema: No Neurological: Yes: Alert Labs: CBC, BMP 06/23/20 09:20 06/26/20 06:15 Assessment/Plan 74 year old male with history of CVA, paraplegia, neurogenic bladder with supra-pubic catheter, hypertension, DM, sigmoid volvulus, sacral decubitis ulcer who presented with lower abdominal pain and found to small bowel obstruction and acute kidney injury. 1. Acute kidney injury likely secondary to volume depletion/ATN vs. obstruction 2. Distal Small bowel obstruction 3. Hx of Nephrolithiasis with obstruction with indwelling stent 4. Anemia 5. Hypertension 6. Cystitis/Urinary tract infection 7. Non anion gap metabolic acidosis 8. Hypophosphatemia Renal function improved Continue Clinmix with KCl for nutrition support Stop bicarb gtt as serum bicarb is improved CT of the Abd/Pelvis showed no obstruction and indwelling stent. Urology following Trend H/H, no acute need for transfusion BP is stable, trend for now. Continue antibiotics as per primary team. General surgery following for SBO supplement PHos with IV sodium phosphate, repeat level in evening Thank you Arias Eubanks DO
[2020-06-26] MEDS: POTASSIUM CHLORIDE 40 MEQ in AMINO ACIDS 4.25%/D5W 1,000 ML IVPB SCH (14:09)
--- NOTE | 2020-06-26 18:10 | PN ---
Progress Note, Physician History of Present Illness: ngt in place - Current Medication List Current Medications: Active Medications Acetaminophen (Ofirmev Injection -) 1,000 mg IVPB Q6H PRN PRN Reason: PAIN 1-6 Last Admin: 06/22/20 15:09 Dose: 1,000 mg Documented by: Collagenase (Santyl -) 1 applic TP DAILY [facility]; Protocol Last Admin: 06/26/20 09:47 Dose: 1 applic Documented by: Meropenem 1 gm/ Dextrose 100 mls @ 200 mls/hr IVPB BID [facility] Last Admin: 06/26/20 09:43 Dose: 200 mls/hr Documented by: Sodium Phosphate 30 mm/ Sodium (Chloride) 510 mls @ 63.75 mls/hr IVPB ONCE ONE Stop: 06/26/20 18:59 Last Admin: 06/26/20 14:09 Dose: 63.75 mls/hr Documented by: Potassium Chloride 40 meq/ (Amino Acids) 1,020 mls @ 42 mls/hr IVPB Q24H [facility] Last Admin: 06/26/20 14:09 Dose: 42 mls/hr Documented by: Ondansetron HCl (Zofran Injection) 4 mg IVPUSH Q6H PRN PRN Reason: NAUSEA Last Admin: 06/24/20 06:33 Dose: 4 mg Documented by: Pantoprazole Sodium (Protonix Iv) 40 mg IVPUSH DAILY [facility] Last Admin: 06/26/20 09:43 Dose: 40 mg Documented by: - Objective Vital Signs: Vital Signs Temperature 98.1 F 06/26/20 15:05 Pulse Rate 87 06/26/20 15:05 Respiratory Rate 20 06/26/20 15:05 Blood Pressure 143/74 06/26/20 15:05 O2 Sat by Pulse Oximetry (%) 99 06/26/20 10:00 Constitutional: Yes: No Distress HENT: Yes: Atraumatic Neck: Yes: Supple Cardiovascular: Yes: Regular Rate and Rhythm Respiratory: Yes: CTA Bilaterally Gastrointestinal: Yes: Normal Bowel Sounds Extremities: Yes: WNL Neurological: Yes: Alert, Oriented Labs: CBC, BMP 06/23/20 09:20 06/26/20 06:15 Problem List - Problems (1) Abdominal distension Assessment/Plan: ngt in place gi and surgical Eval...done Code(s): R14.0 - ABDOMINAL DISTENSION (GASEOUS) (2) Abdominal pain Assessment/Plan: npo ivf prn pain meds Code(s): R10.9 - UNSPECIFIED ABDOMINAL PAIN Qualifiers: Abdominal location: generalized Qualified Code(s): R10.84 - Generalized abdominal pain (3) Chronic suprapubic catheter Code(s): Z93.59 - OTHER CYSTOSTOMY STATUS (4) Diabetes Assessment/Plan: monitor bgms npo Code(s): E11.9 - TYPE 2 DIABETES MELLITUS WITHOUT COMPLICATIONS (5) Functional quadriplegia Code(s): R53.2 - FUNCTIONAL QUADRIPLEGIA (6) HTN (hypertension) Assessment/Plan: on meds monitor Code(s): I10 - ESSENTIAL (PRIMARY) HYPERTENSION (7) SBO (small bowel obstruction) Assessment/Plan: npo ngt prn zofran prn pain meds Code(s): K56.609 - UNSP INTESTNL OBST, UNSP TO PARTIAL VERSUS COMPLETE OBST (8) Sacral decubitus ulcer, stage IV Code(s): L89.154 - PRESSURE ULCER OF SACRAL REGION, STAGE 4 (9) Severe malnutrition Code(s): E43 - UNSPECIFIED SEVERE PROTEIN-CALORIE MALNUTRITION Assessment/Plan COVERING FOR DR RJ WONG
[2020-06-27] MEDS ORDERED: DEXTROSE 5%-WATER 100 ML IVPB ONE ×2 (09:00→22:24)
[2020-06-27] MEDS ORDERED: MEROPENEM 1 GM VIAL (RESTRICTED TO ID) IVPB ONE ×2 (09:00→22:23)
[2020-06-27] MEDS ORDERED: PT OWN MED DRAWER 7, Y5N ONE (09:00)
[2020-06-27 09:12] LABS: BLOOD UREA NITROGEN 31.8 mg/dL (7-18); CALCIUM 8.2 mg/dL (8.5-10.1); CREATININE 0.9 mg/dL (0.55-1.3); PHOSPHOROUS 2.2 mg/dL (2.5-4.9); POTASSIUM 4.7 mmol/L (3.5-5.1)
--- NOTE | 2020-06-27 09:48 | PN ---
Progress Note, Physician History of Present Illness: patient looks better colostomy fning - Current Medication List Current Medications: Active Medications Acetaminophen (Ofirmev Injection -) 1,000 mg IVPB Q6H PRN PRN Reason: PAIN 1-6 Last Admin: 06/22/20 15:09 Dose: 1,000 mg Documented by: Collagenase (Santyl -) 1 applic TP DAILY [facility]; Protocol Last Admin: 06/26/20 09:47 Dose: 1 applic Documented by: Meropenem 1 gm/ Dextrose 100 mls @ 200 mls/hr IVPB BID [facility] Last Admin: 06/26/20 21:52 Dose: 200 mls/hr Documented by: Potassium Chloride 40 meq/ (Amino Acids) 1,020 mls @ 42 mls/hr IVPB Q24H [facility] Last Admin: 06/26/20 14:09 Dose: 42 mls/hr Documented by: Ondansetron HCl (Zofran Injection) 4 mg IVPUSH Q6H PRN PRN Reason: NAUSEA Last Admin: 06/24/20 06:33 Dose: 4 mg Documented by: Pantoprazole Sodium (Protonix Iv) 40 mg IVPUSH DAILY [facility] Last Admin: 06/26/20 09:43 Dose: 40 mg Documented by: - Objective Vital Signs: Vital Signs Temperature 98.2 F 06/27/20 06:00 Pulse Rate 88 06/27/20 06:00 Respiratory Rate 18 06/27/20 06:00 Blood Pressure 150/65 06/27/20 06:00 O2 Sat by Pulse Oximetry (%) 100 06/27/20 06:00 Constitutional: Yes: No Distress, Calm Cardiovascular: Yes: S1, S2 Respiratory: Yes: Regular, CTA Bilaterally Gastrointestinal: Yes: Normal Bowel Sounds, Soft Musculoskeletal: Yes: WNL Extremities: Yes: Other Wound/Incision: Yes: Dressing Dry and Intact Neurological: Yes: Alert, Oriented Psychiatric: Yes: Alert, Oriented Labs: CBC, BMP 06/23/20 09:20 06/27/20 08:10 Assessment/Plan Problem List - Problems (1) Abdominal distension Code(s): R14.0 - ABDOMINAL DISTENSION (GASEOUS) (2) Abdominal pain Code(s): R10.9 - UNSPECIFIED ABDOMINAL PAIN Qualifiers: Abdominal location: generalized Qualified Code(s): R10.84 - Generalized abdominal pain (3) Chronic suprapubic catheter Code(s): Z93.59 - OTHER CYSTOSTOMY STATUS (4) Diabetes Code(s): E11.9 - TYPE 2 DIABETES MELLITUS WITHOUT COMPLICATIONS (5) Functional quadriplegia Code(s): R53.2 - FUNCTIONAL QUADRIPLEGIA (6) HTN (hypertension) Code(s): I10 - ESSENTIAL (PRIMARY) HYPERTENSION (7) SBO (small bowel obstruction) Code(s): K56.609 - UNSP INTESTNL OBST, UNSP TO PARTIAL VERSUS COMPLETE OBST (8) Sacral decubitus ulcer, stage IV Code(s): L89.154 - PRESSURE ULCER OF SACRAL REGION, STAGE 4 (9) Severe malnutrition Code(s): E43 - UNSPECIFIED SEVERE PROTEIN-CALORIE MALNUTRITIO plan continue abx as per surgery hydration gi on board rest as per the team await for final plan from surgery
[2020-06-27] MEDS: MEROPENEM 1 GM in DEXTROSE 5%-WATER 100 ML IVPB SCH ×2 (10:10→22:27)
[2020-06-27] MEDS: PANTOPRAZOLE SODIUM 40 MG VIAL IVPUSH SCH (10:10)
[2020-06-27] MEDS: COLLAGENASE CLOSTRIDIUM HIST. 30 GRAMS TUBE TP SCH (10:10)
[2020-06-27] MEDS ORDERED: SODIUM PHOSPHATE - 15 MM in DEXTROSE 5%-WATER - 250 ML IVPB ONE (12:00)
[2020-06-27] MEDS: POTASSIUM CHLORIDE 40 MEQ in AMINO ACIDS 4.25%/D5W 1,000 ML IVPB SCH ×2 (13:49→22:28)
--- NOTE | 2020-06-27 14:30 | PN ---
Progress Note, Physician History of Present Illness: Seem and examined at the bedside awake and alert abdominal pain is improved no sob, cp, fever or chills making urine remains NPO on IV clinimix - Current Medication List Current Medications: Active Medications Acetaminophen (Ofirmev Injection -) 1,000 mg IVPB Q6H PRN PRN Reason: PAIN 1-6 Last Admin: 06/22/20 15:09 Dose: 1,000 mg Documented by: Collagenase (Santyl -) 1 applic TP DAILY [facility]; Protocol Last Admin: 06/27/20 10:10 Dose: 1 applic Documented by: Meropenem 1 gm/ Dextrose 100 mls @ 200 mls/hr IVPB BID [facility] Last Admin: 06/27/20 10:10 Dose: 200 mls/hr Documented by: Potassium Chloride 40 meq/ (Amino Acids) 1,020 mls @ 42 mls/hr IVPB Q24H [facility] Last Admin: 06/27/20 13:49 Dose: Not Given Documented by: Sodium Phosphate 15 mm/ (Dextrose) 255 mls @ 42.5 mls/hr IVPB ONCE ONE Stop: 06/27/20 17:59 Last Admin: 06/27/20 13:49 Dose: 42.5 mls/hr Documented by: Ondansetron HCl (Zofran Injection) 4 mg IVPUSH Q6H PRN PRN Reason: NAUSEA Last Admin: 06/24/20 06:33 Dose: 4 mg Documented by: Pantoprazole Sodium (Protonix Iv) 40 mg IVPUSH DAILY [facility] Last Admin: 06/27/20 10:10 Dose: 40 mg Documented by: - Objective Vital Signs: Vital Signs Temperature 98.2 F 06/27/20 06:00 Pulse Rate 88 06/27/20 06:00 Respiratory Rate 18 06/27/20 06:00 Blood Pressure 150/65 06/27/20 06:00 O2 Sat by Pulse Oximetry (%) 100 06/27/20 06:00 Constitutional: Yes: No Distress Neck: Yes: Supple Cardiovascular: Yes: Regular Rate and Rhythm Respiratory: Yes: Regular Gastrointestinal: Yes: Soft, Distention. No: Tenderness Extremities: No: Cold, Cool, Cyanosis Edema: No Neurological: Yes: Alert Labs: CBC, BMP 06/23/20 09:20 06/27/20 08:10 Assessment/Plan 74 year old male with history of CVA, paraplegia, neurogenic bladder with supra-pubic catheter, hypertension, DM, sigmoid volvulus, sacral decubitis ulcer who presented with lower abdominal pain and found to small bowel obstruction and acute kidney injury. 1. Acute kidney injury likely secondary to volume depletion/ATN vs. obstruction 2. Distal Small bowel obstruction 3. Hx of Nephrolithiasis with obstruction with indwelling stent 4. Anemia 5. Hypertension 6. Cystitis/Urinary tract infection 7. Non anion gap metabolic acidosis 8. Hypophosphatemia Renal function improved and stable Continue Clinmix with KCl for nutrition support CT of the Abd/Pelvis showed no obstruction and indwelling stent. Urology following Trend H/H, no acute need for transfusion BP is stable, trend for now. Continue antibiotics as per primary team. General surgery following for SBO supplement PHos with IV sodium phosphate, repeat level tomorrow. Thank you Arias Eubanks DO
--- NOTE | 2020-06-27 15:56 | PN ---
Progress Note, Physician - Current Medication List Current Medications: Active Medications Acetaminophen (Ofirmev Injection -) 1,000 mg IVPB Q6H PRN PRN Reason: PAIN 1-6 Last Admin: 06/22/20 15:09 Dose: 1,000 mg Documented by: Collagenase (Santyl -) 1 applic TP DAILY [facility]; Protocol Last Admin: 06/27/20 10:10 Dose: 1 applic Documented by: Meropenem 1 gm/ Dextrose 100 mls @ 200 mls/hr IVPB BID [facility] Last Admin: 06/27/20 10:10 Dose: 200 mls/hr Documented by: Potassium Chloride 40 meq/ (Amino Acids) 1,020 mls @ 42 mls/hr IVPB Q24H [facility] Last Admin: 06/27/20 13:49 Dose: Not Given Documented by: Sodium Phosphate 15 mm/ (Dextrose) 255 mls @ 42.5 mls/hr IVPB ONCE ONE Stop: 06/27/20 17:59 Last Admin: 06/27/20 13:49 Dose: 42.5 mls/hr Documented by: Ondansetron HCl (Zofran Injection) 4 mg IVPUSH Q6H PRN PRN Reason: NAUSEA Last Admin: 06/24/20 06:33 Dose: 4 mg Documented by: Pantoprazole Sodium (Protonix Iv) 40 mg IVPUSH DAILY [facility] Last Admin: 06/27/20 10:10 Dose: 40 mg Documented by: - Objective Vital Signs: Vital Signs Temperature 97.6 F 06/27/20 14:30 Pulse Rate 92 H 06/27/20 14:30 Respiratory Rate 20 06/27/20 14:30 Blood Pressure 136/86 06/27/20 14:30 O2 Sat by Pulse Oximetry (%) 99 06/27/20 14:30 Constitutional: Yes: No Distress HENT: Yes: Atraumatic Neck: Yes: Supple Cardiovascular: Yes: Regular Rate and Rhythm Respiratory: Yes: Rhonchi Gastrointestinal: Yes: Normal Bowel Sounds Extremities: Yes: WNL Neurological: Yes: Alert, Oriented Labs: CBC, BMP 06/23/20 09:20 06/27/20 08:10 Problem List - Problems (1) Abdominal distension Assessment/Plan: on clear liquid diet for today Code(s): R14.0 - ABDOMINAL DISTENSION (GASEOUS) (2) Abdominal pain Assessment/Plan: resolved Code(s): R10.9 - UNSPECIFIED ABDOMINAL PAIN Qualifiers: Abdominal location: generalized Qualified Code(s): R10.84 - Generalized abdominal pain (3) Chronic suprapubic catheter Code(s): Z93.59 - OTHER CYSTOSTOMY STATUS (4) Diabetes Assessment/Plan: monitor bgms Code(s): E11.9 - TYPE 2 DIABETES MELLITUS WITHOUT COMPLICATIONS (5) Functional quadriplegia Code(s): R53.2 - FUNCTIONAL QUADRIPLEGIA (6) HTN (hypertension) Assessment/Plan: on meds monitor Code(s): I10 - ESSENTIAL (PRIMARY) HYPERTENSION (7) SBO (small bowel obstruction) Assessment/Plan: RESOLVING DC NGT ON CLEAR LIQUID DIET Code(s): K56.609 - UNSP INTESTNL OBST, UNSP TO PARTIAL VERSUS COMPLETE OBST (8) Sacral decubitus ulcer, stage IV Assessment/Plan: SANTYL DRESSING Code(s): L89.154 - PRESSURE ULCER OF SACRAL REGION, STAGE 4 (9) Severe malnutrition Code(s): E43 - UNSPECIFIED SEVERE PROTEIN-CALORIE MALNUTRITION Assessment/Plan COVERING FOR DR RJ WONG
[2020-06-27] MEDS: ACETAMINOPHEN 1000 MG/100 ML VIAL (NON FORMULARY) IVPB PRN (20:11)
[2020-06-28] MEDS ORDERED: DEXTROSE 5%-WATER 100 ML IVPB ONE ×2 (08:36→22:45)
[2020-06-28] MEDS ORDERED: MEROPENEM 1 GM VIAL (RESTRICTED TO ID) IVPB ONE ×2 (08:36→22:44)
--- NOTE | 2020-06-28 09:28 | PN ---
Progress Note (short form) - Note Progress Note: 74M h/o sbo, pt seen and examined at bedside. Pt states he is feeling well. Pt tolerating clears. Pt has gas and stool in his colostomy. Denies n/v, fever, chills. Last Vital Signs Temp Pulse Resp BP Pulse Ox 97.6 F 92 H 18 131/84 99 06/28/20 06:00 06/28/20 06:00 06/28/20 06:00 06/28/20 06:00 06/28/20 06:00 CBC, BMP 06/23/20 09:20 PE: Gen: awake and alert Resp: breathing comfortably Abd: soft, nontender, nondistended, colostomy stool and gas in bag. Problem List - Problems (1) SBO (small bowel obstruction) Assessment/Plan: Plan -pt appears to be have resolved his SBO, will adv diet -pt cleared from surgery for discharge -pt should follow up with Dr. Quintero in the office in 1-2 weeks. Pt discussed with Dr. Quintero who agrees with plan Code(s): K56.609 - UNSP INTESTNL OBST, UNSP TO PARTIAL VERSUS COMPLETE OBST
[2020-06-28 09:46] LABS: BILIRUBIN,TOTAL 0.3 mg/dL (0.2-1); BLOOD UREA NITROGEN 26.5 mg/dL (7-18); CREATININE 0.8 mg/dL (0.55-1.3); MAGNESIUM 1.9 mg/dL (1.8-2.4); PHOSPHOROUS 2.1 mg/dL (2.5-4.9); POTASSIUM 4.6 mmol/L (3.5-5.1); TOT PROT 5.3 g/dl (6.4-8.2)
[2020-06-28] MEDS: MEROPENEM 1 GM in DEXTROSE 5%-WATER 100 ML IVPB SCH ×2 (09:58→23:48)
[2020-06-28] MEDS: PANTOPRAZOLE SODIUM 40 MG VIAL IVPUSH SCH (10:00)
[2020-06-28] MEDS: COLLAGENASE CLOSTRIDIUM HIST. 30 GRAMS TUBE TP SCH (10:00)
--- NOTE | 2020-06-28 12:43 | PN ---
Progress Note, Physician History of Present Illness: stable much better tolerating diet ng removed - Current Medication List Current Medications: Active Medications Acetaminophen (Ofirmev Injection -) 1,000 mg IVPB Q6H PRN PRN Reason: PAIN 1-6 Last Admin: 06/27/20 20:11 Dose: 1,000 mg Documented by: Collagenase (Santyl -) 1 applic TP DAILY [facility]; Protocol Last Admin: 06/28/20 10:00 Dose: 1 applic Documented by: Meropenem 1 gm/ Dextrose 100 mls @ 200 mls/hr IVPB BID [facility] Last Admin: 06/28/20 09:58 Dose: 200 mls/hr Documented by: Potassium Chloride 40 meq/ (Amino Acids) 1,020 mls @ 42 mls/hr IVPB Q24H [facility] Last Admin: 06/27/20 22:28 Dose: 42 mls/hr Documented by: Sodium Phosphate 15 mm/ (Dextrose) 255 mls @ 62.5 mls/hr IVPB ONCE ONE Stop: 06/28/20 17:04 Ondansetron HCl (Zofran Injection) 4 mg IVPUSH Q6H PRN PRN Reason: NAUSEA Last Admin: 06/24/20 06:33 Dose: 4 mg Documented by: Pantoprazole Sodium (Protonix Iv) 40 mg IVPUSH DAILY [facility] Last Admin: 06/28/20 10:00 Dose: 40 mg Documented by: - Objective Vital Signs: Vital Signs Temperature 98.2 F 06/28/20 10:00 Pulse Rate 91 H 06/28/20 10:00 Respiratory Rate 18 06/28/20 10:00 Blood Pressure 136/64 06/28/20 10:00 O2 Sat by Pulse Oximetry (%) 99 06/28/20 10:00 Constitutional: Yes: No Distress, Calm Cardiovascular: Yes: S1, S2 Respiratory: Yes: Regular, CTA Bilaterally Gastrointestinal: Yes: Normal Bowel Sounds, Soft, Other (ostomy working) Musculoskeletal: Yes: WNL Extremities: Yes: WNL Wound/Incision: Yes: Dressing Dry and Intact, Other (wound looks good) Labs: CBC, BMP 06/23/20 09:20 06/28/20 08:36 Assessment/Plan Problem List - Problems (1) Abdominal distension Code(s): R14.0 - ABDOMINAL DISTENSION (GASEOUS) (2) Abdominal pain Code(s): R10.9 - UNSPECIFIED ABDOMINAL PAIN Qualifiers: Abdominal location: generalized Qualified Code(s): R10.84 - Generalized abdominal pain (3) Chronic suprapubic catheter Code(s): Z93.59 - OTHER CYSTOSTOMY STATUS (4) Diabetes Code(s): E11.9 - TYPE 2 DIABETES MELLITUS WITHOUT COMPLICATIONS (5) Functional quadriplegia Code(s): R53.2 - FUNCTIONAL QUADRIPLEGIA (6) HTN (hypertension) Code(s): I10 - ESSENTIAL (PRIMARY) HYPERTENSION (7) SBO (small bowel obstruction) Code(s): K56.609 - UNSP INTESTNL OBST, UNSP TO PARTIAL VERSUS COMPLETE OBST (8) Sacral decubitus ulcer, stage IV Code(s): L89.154 - PRESSURE ULCER OF SACRAL REGION, STAGE 4 (9) Severe malnutrition Code(s): E43 - UNSPECIFIED SEVERE PROTEIN-CALORIE MALNUTRITIO plan continue abx will deescalte soon
[2020-06-28] MEDS ORDERED: SODIUM PHOSPHATE - 15 MM in DEXTROSE 5%-WATER - 250 ML IVPB ONE (13:00)
--- NOTE | 2020-06-28 14:53 | PN ---
Progress Note, Physician History of Present Illness: Seem and examined at the bedside awake and alert abdominal pain is improved no sob, cp, fever or chills making urine tolerating clear liquid diet - Current Medication List Current Medications: Active Medications Acetaminophen (Ofirmev Injection -) 1,000 mg IVPB Q6H PRN PRN Reason: PAIN 1-6 Last Admin: 06/27/20 20:11 Dose: 1,000 mg Documented by: Collagenase (Santyl -) 1 applic TP DAILY [facility]; Protocol Last Admin: 06/28/20 10:00 Dose: 1 applic Documented by: Meropenem 1 gm/ Dextrose 100 mls @ 200 mls/hr IVPB BID [facility] Last Admin: 06/28/20 09:58 Dose: 200 mls/hr Documented by: Potassium Chloride 40 meq/ (Amino Acids) 1,020 mls @ 42 mls/hr IVPB Q24H [facility] Last Admin: 06/27/20 22:28 Dose: 42 mls/hr Documented by: Sodium Phosphate 15 mm/ (Dextrose) 255 mls @ 62.5 mls/hr IVPB ONCE ONE Stop: 06/28/20 17:04 Last Admin: 06/28/20 14:18 Dose: 62.5 mls/hr Documented by: Ondansetron HCl (Zofran Injection) 4 mg IVPUSH Q6H PRN PRN Reason: NAUSEA Last Admin: 06/24/20 06:33 Dose: 4 mg Documented by: Pantoprazole Sodium (Protonix Iv) 40 mg IVPUSH DAILY [facility] Last Admin: 06/28/20 10:00 Dose: 40 mg Documented by: - Objective Vital Signs: Vital Signs Temperature 98 F 06/28/20 13:36 Pulse Rate 79 06/28/20 13:36 Respiratory Rate 20 06/28/20 13:36 Blood Pressure 124/59 L 06/28/20 13:36 O2 Sat by Pulse Oximetry (%) 100 06/28/20 13:36 Constitutional: Yes: No Distress HENT: Yes: Atraumatic Neck: Yes: Supple Cardiovascular: Yes: Regular Rate and Rhythm Respiratory: Yes: Regular Gastrointestinal: Yes: Soft, Distention. No: Tenderness Genitourinary: No: Bladder Distention Extremities: No: Cyanosis Edema: No Labs: CBC, BMP 06/23/20 09:20 06/28/20 08:36 Assessment/Plan 74 year old male with history of CVA, paraplegia, neurogenic bladder with supra-pubic catheter, hypertension, DM, sigmoid volvulus, sacral decubitis ulcer who presented with lower abdominal pain and found to small bowel obstruction and acute kidney injury. 1. Acute kidney injury likely secondary to volume depletion/ATN vs. obstruction 2. Distal Small bowel obstruction 3. Hx of Nephrolithiasis with obstruction with indwelling stent 4. Anemia 5. Hypertension 6. Cystitis/Urinary tract infection 7. Non anion gap metabolic acidosis 8. Hypophosphatemia Renal function improved and stable can stop IV fluids as pt is tolerating oral diet CT of the Abd/Pelvis showed no obstruction and indwelling stent. Urology following Trend H/H, no acute need for transfusion BP is stable, trend for now. Continue antibiotics as per primary team. General surgery following for SBO, now advancing diet. supplement PHos with IV sodium phosphate, repeat level tomorrow. Thank you Arias Eubanks DO
[2020-06-28] MEDS: POTASSIUM CHLORIDE 40 MEQ in AMINO ACIDS 4.25%/D5W 1,000 ML IVPB SCH (19:48)
--- NOTE | 2020-06-28 21:48 | PN ---
Progress Note, Physician - Current Medication List Current Medications: Active Medications Acetaminophen (Ofirmev Injection -) 1,000 mg IVPB Q6H PRN PRN Reason: PAIN 1-6 Last Admin: 06/27/20 20:11 Dose: 1,000 mg Documented by: Collagenase (Santyl -) 1 applic TP DAILY [facility]; Protocol Last Admin: 06/28/20 10:00 Dose: 1 applic Documented by: Meropenem 1 gm/ Dextrose 100 mls @ 200 mls/hr IVPB BID [facility] Last Admin: 06/28/20 09:58 Dose: 200 mls/hr Documented by: Ondansetron HCl (Zofran Injection) 4 mg IVPUSH Q6H PRN PRN Reason: NAUSEA Last Admin: 06/24/20 06:33 Dose: 4 mg Documented by: Pantoprazole Sodium (Protonix Iv) 40 mg IVPUSH DAILY [facility] Last Admin: 06/28/20 10:00 Dose: 40 mg Documented by: - Objective Vital Signs: Vital Signs Temperature 98 F 06/28/20 13:36 Pulse Rate 79 06/28/20 13:36 Respiratory Rate 20 06/28/20 13:36 Blood Pressure 124/59 L 06/28/20 13:36 O2 Sat by Pulse Oximetry (%) 100 06/28/20 13:36 Labs: CBC, BMP 06/23/20 09:20 06/28/20 08:36 Problem List - Problems (1) SBO (small bowel obstruction) Code(s): K56.609 - UNSP INTESTNL OBST, UNSP TO PARTIAL VERSUS COMPLETE OBST (2) Decubitus ulcer of sacral region Code(s): L89.159 - PRESSURE ULCER OF SACRAL REGION, UNSPECIFIED STAGE (3) Anemia Code(s): D64.9 - ANEMIA, UNSPECIFIED (4) HTN (hypertension) Code(s): I10 - ESSENTIAL (PRIMARY) HYPERTENSION (5) Neurogenic bladder Code(s): N31.9 - NEUROMUSCULAR DYSFUNCTION OF BLADDER, UNSPECIFIED (6) Chronic suprapubic catheter Code(s): Z93.59 - OTHER CYSTOSTOMY STATUS (7) Functional quadriplegia Code(s): R53.2 - FUNCTIONAL QUADRIPLEGIA
[2020-06-28] MEDS: ACETAMINOPHEN 1000 MG/100 ML VIAL (NON FORMULARY) IVPB PRN (22:55)
[2020-06-29 07:20] LABS: BASO % 0.9 % (0-2.0); EOS % 29.5 % (0-4.5); HEMATOCRIT 29.7 % (35.4-49); HEMOGLOBIN 9.6 GM/dL (11.7-16.9); MCHC 32.3 g/dl (32.0-35.9); MEAN CELL VOLUME 80.7 fl (80-96); MEAN PLT VOLUME 6.7 fl (7.5-11.1); MONO % 9.2 % (3.8-10.2); NEUT % 37.4 % (42.8-82.8); PLATELET COUNT 318 K/MM3 (134-434); RBC 3.68 M/mm3 (4.00-5.60); RDW 20.5 % (11.9-15.9); WHITE BLOOD COUNT 6.4 K/mm3 (4.0-10.0)
[2020-06-29 07:49] LABS: ALBUMIN 2.1 g/dl (3.4-5.0); BILIRUBIN,TOTAL 0.2 mg/dL (0.2-1); BLOOD UREA NITROGEN 21.4 mg/dL (7-18); CALCIUM 7.9 mg/dL (8.5-10.1); CREATININE 0.8 mg/dL (0.55-1.3); MAGNESIUM 1.7 mg/dL (1.8-2.4); PHOSPHOROUS 2.4 mg/dL (2.5-4.9); POTASSIUM 4.3 mmol/L (3.5-5.1); TOT PROT 5.4 g/dl (6.4-8.2)
[2020-06-29] MEDS ORDERED: MEROPENEM 1 GM VIAL (RESTRICTED TO ID) IVPB ONE (09:51)
[2020-06-29] MEDS ORDERED: DEXTROSE 5%-WATER 100 ML IVPB ONE (09:51)
[2020-06-29] MEDS: PANTOPRAZOLE SODIUM 40 MG VIAL IVPUSH SCH (10:01)
[2020-06-29] MEDS: MEROPENEM 1 GM in DEXTROSE 5%-WATER 100 ML IVPB SCH (10:01)
[2020-06-29] MEDS: COLLAGENASE CLOSTRIDIUM HIST. 30 GRAMS TUBE TP SCH (10:01)
[2020-06-29] MEDS: ACETAMINOPHEN 1000 MG/100 ML VIAL (NON FORMULARY) IVPB PRN ×2 (10:01→17:27)
[2020-06-29 10:11] LABS: ANISOCYTOSIS 1+; MACROCYTOSIS 0; PLATELET ESTIMATE NORMAL; TEAR DROP CELLS 1+
[2020-06-29] MEDS: NAPH,MB-DB/K PH,MBDB POWDER PACKET PO SCH ×2 (11:11→21:45)
--- NOTE | 2020-06-29 11:17 | PN ---
Progress Note, Physician History of Present Illness: stable no new issues - Current Medication List Current Medications: Active Medications Acetaminophen (Ofirmev Injection -) 1,000 mg IVPB Q6H PRN PRN Reason: PAIN 1-6 Last Admin: 06/29/20 10:01 Dose: 1,000 mg Documented by: Collagenase (Santyl -) 1 applic TP DAILY [facility]; Protocol Last Admin: 06/29/20 10:01 Dose: 1 applic Documented by: Meropenem 1 gm/ Dextrose 100 mls @ 200 mls/hr IVPB BID [facility] Last Admin: 06/29/20 10:01 Dose: 200 mls/hr Documented by: Ondansetron HCl (Zofran Injection) 4 mg IVPUSH Q6H PRN PRN Reason: NAUSEA Last Admin: 06/24/20 06:33 Dose: 4 mg Documented by: Pantoprazole Sodium (Protonix Iv) 40 mg IVPUSH DAILY [facility] Last Admin: 06/29/20 10:01 Dose: 40 mg Documented by: Potassium Phos/Sodium Phos (Phos-Nak Packet -) 1 packet PO BID [facility] Stop: 06/29/20 22:01 Last Admin: 06/29/20 11:11 Dose: 1 packet Documented by: - Objective Vital Signs: Vital Signs Temperature 98.4 F 06/29/20 10:00 Pulse Rate 73 06/29/20 10:00 Respiratory Rate 18 06/29/20 10:00 Blood Pressure 129/69 06/29/20 10:00 O2 Sat by Pulse Oximetry (%) 99 06/29/20 10:00 Constitutional: Yes: No Distress, Calm Cardiovascular: Yes: S1, S2 Respiratory: Yes: Regular, CTA Bilaterally Gastrointestinal: Yes: Normal Bowel Sounds, Soft Musculoskeletal: Yes: WNL Extremities: Yes: WNL Wound/Incision: Yes: Dressing Dry and Intact Neurological: Yes: Alert Labs: CBC, BMP 06/29/20 06:15 06/29/20 06:15 Assessment/Plan Problem List - Problems (1) Abdominal distension Code(s): R14.0 - ABDOMINAL DISTENSION (GASEOUS) (2) Abdominal pain Code(s): R10.9 - UNSPECIFIED ABDOMINAL PAIN Qualifiers: Abdominal location: generalized Qualified Code(s): R10.84 - Generalized abdominal pain (3) Chronic suprapubic catheter Code(s): Z93.59 - OTHER CYSTOSTOMY STATUS (4) Diabetes Code(s): E11.9 - TYPE 2 DIABETES MELLITUS WITHOUT COMPLICATIONS (5) Functional quadriplegia Code(s): R53.2 - FUNCTIONAL QUADRIPLEGIA (6) HTN (hypertension) Code(s): I10 - ESSENTIAL (PRIMARY) HYPERTENSION (7) SBO (small bowel obstruction) Code(s): K56.609 - UNSP INTESTNL OBST, UNSP TO PARTIAL VERSUS COMPLETE OBST (8) Sacral decubitus ulcer, stage IV Code(s): L89.154 - PRESSURE ULCER OF SACRAL REGION, STAGE 4 (9) Severe malnutrition Code(s): E43 - UNSPECIFIED SEVERE PROTEIN-CALORIE MALNUTRITIO plan can stop abx wound care
--- NOTE | 2020-06-29 12:45 | PN ---
Progress Note, Physician History of Present Illness: Seem and examined at the bedside awake and alert some abdominal pain still tolerating diet no sob, cp, fever or chills making urine tolerating clear liquid diet - Current Medication List Current Medications: Active Medications Acetaminophen (Ofirmev Injection -) 1,000 mg IVPB Q6H PRN PRN Reason: PAIN 1-6 Last Admin: 06/29/20 10:01 Dose: 1,000 mg Documented by: Collagenase (Santyl -) 1 applic TP DAILY [facility]; Protocol Last Admin: 06/29/20 10:01 Dose: 1 applic Documented by: Meropenem 1 gm/ Dextrose 100 mls @ 200 mls/hr IVPB BID [facility] Last Admin: 06/29/20 10:01 Dose: 200 mls/hr Documented by: Ondansetron HCl (Zofran Injection) 4 mg IVPUSH Q6H PRN PRN Reason: NAUSEA Last Admin: 06/24/20 06:33 Dose: 4 mg Documented by: Pantoprazole Sodium (Protonix Iv) 40 mg IVPUSH DAILY [facility] Last Admin: 06/29/20 10:01 Dose: 40 mg Documented by: Potassium Phos/Sodium Phos (Phos-Nak Packet -) 1 packet PO BID [facility] Stop: 06/29/20 22:01 Last Admin: 06/29/20 11:11 Dose: 1 packet Documented by: - Objective Vital Signs: Vital Signs Temperature 98.4 F 06/29/20 10:00 Pulse Rate 73 06/29/20 10:00 Respiratory Rate 18 06/29/20 10:00 Blood Pressure 129/69 06/29/20 10:00 O2 Sat by Pulse Oximetry (%) 99 06/29/20 10:00 Constitutional: Yes: No Distress, Calm HENT: Yes: Atraumatic Neck: Yes: Supple Cardiovascular: Yes: Regular Rate and Rhythm Respiratory: Yes: Regular Gastrointestinal: Yes: Soft, Tenderness Edema: No Labs: CBC, BMP 06/29/20 06:15 06/29/20 06:15 Assessment/Plan 74 year old male with history of CVA, paraplegia, neurogenic bladder with supra-pubic catheter, hypertension, DM, sigmoid volvulus, sacral decubitis ulcer who presented with lower abdominal pain and found to small bowel obstruction and acute kidney injury. 1. Acute kidney injury likely secondary to volume depletion/ATN vs. obstruction 2. Distal Small bowel obstruction 3. Hx of Nephrolithiasis with obstruction with indwelling stent 4. Anemia 5. Hypertension 6. Cystitis/Urinary tract infection 7. Non anion gap metabolic acidosis 8. Hypophosphatemia Renal function stable oral intake as tolerated CT of the Abd/Pelvis showed no obstruction and indwelling stent. Urology following Trend H/H, no acute need for transfusion BP is stable, trend for now. Continue antibiotics as per primary team. General surgery following for SBO, now advancing diet. supplement phso orally. Thank you Arias Eubanks DO
--- NOTE | 2020-06-29 15:47 | PN ---
Progress Note, Physician History of Present Illness: stable - Current Medication List Current Medications: Active Medications Acetaminophen (Ofirmev Injection -) 1,000 mg IVPB Q6H PRN PRN Reason: PAIN 1-6 Last Admin: 06/29/20 10:01 Dose: 1,000 mg Documented by: Collagenase (Santyl -) 1 applic TP DAILY [facility]; Protocol Last Admin: 06/29/20 10:01 Dose: 1 applic Documented by: Ondansetron HCl (Zofran Injection) 4 mg IVPUSH Q6H PRN PRN Reason: NAUSEA Last Admin: 06/24/20 06:33 Dose: 4 mg Documented by: Pantoprazole Sodium (Protonix Iv) 40 mg IVPUSH DAILY [facility] Last Admin: 06/29/20 10:01 Dose: 40 mg Documented by: Potassium Phos/Sodium Phos (Phos-Nak Packet -) 1 packet PO BID [facility] Stop: 06/29/20 22:01 Last Admin: 06/29/20 11:11 Dose: 1 packet Documented by: - Objective Vital Signs: Vital Signs Temperature 97.5 F L 06/29/20 14:39 Pulse Rate 73 06/29/20 14:39 Respiratory Rate 18 06/29/20 14:39 Blood Pressure 148/67 06/29/20 14:39 O2 Sat by Pulse Oximetry (%) 99 06/29/20 10:00 Constitutional: Yes: No Distress HENT: Yes: Atraumatic Neck: Yes: Supple Cardiovascular: Yes: Regular Rate and Rhythm Respiratory: Yes: CTA Bilaterally Gastrointestinal: Yes: Normal Bowel Sounds Extremities: Yes: WNL Edema: No Neurological: Yes: Alert, Oriented Labs: CBC, BMP 06/29/20 06:15 06/29/20 06:15 Problem List - Problems (1) Abdominal distension Assessment/Plan: on regular diet now tolerating Code(s): R14.0 - ABDOMINAL DISTENSION (GASEOUS) (2) Abdominal pain Assessment/Plan: resolved Code(s): R10.9 - UNSPECIFIED ABDOMINAL PAIN Qualifiers: Abdominal location: generalized Qualified Code(s): R10.84 - Generalized abdominal pain (3) Chronic suprapubic catheter Code(s): Z93.59 - OTHER CYSTOSTOMY STATUS (4) Diabetes Assessment/Plan: monitor bgms Code(s): E11.9 - TYPE 2 DIABETES MELLITUS WITHOUT COMPLICATIONS (5) Functional quadriplegia Code(s): R53.2 - FUNCTIONAL QUADRIPLEGIA (6) HTN (hypertension) Assessment/Plan: on meds monitor Code(s): I10 - ESSENTIAL (PRIMARY) HYPERTENSION (7) SBO (small bowel obstruction) Assessment/Plan: resolving Code(s): K56.609 - UNSP INTESTNL OBST, UNSP TO PARTIAL VERSUS COMPLETE OBST (8) Sacral decubitus ulcer, stage IV Code(s): L89.154 - PRESSURE ULCER OF SACRAL REGION, STAGE 4 (9) Severe malnutrition Code(s): E43 - UNSPECIFIED SEVERE PROTEIN-CALORIE MALNUTRITION Assessment/Plan COVERING FOR DR DE LA ROSA TODAY
[2020-06-30 07:33] LABS: BASO % 0.8 % (0-2.0); EOS % 24.3 % (0-4.5); HEMATOCRIT 32.4 % (35.4-49); HEMOGLOBIN 10.4 GM/dL (11.7-16.9); MCH 25.8 pg (25.7-33.7); MCHC 32.1 g/dl (32.0-35.9); MEAN CELL VOLUME 80.5 fl (80-96); MEAN PLT VOLUME 6.4 fl (7.5-11.1); MONO % 8.5 % (3.8-10.2); NEUT % 42.4 % (42.8-82.8); PLATELET COUNT 304 K/MM3 (134-434); RBC 4.02 M/mm3 (4.00-5.60); RDW 20.8 % (11.9-15.9); WHITE BLOOD COUNT 6.7 K/mm3 (4.0-10.0)
[2020-06-30 07:56] LABS: BLOOD UREA NITROGEN 14.6 mg/dL (7-18); CREATININE 0.8 mg/dL (0.55-1.3); MAGNESIUM 1.8 mg/dL (1.8-2.4); PHOSPHOROUS 2.8 mg/dL (2.5-4.9); POTASSIUM 4.3 mmol/L (3.5-5.1)
[2020-06-30] MEDS: PANTOPRAZOLE SODIUM 40 MG VIAL IVPUSH SCH (11:15)
[2020-06-30 11:30] LABS: ANISOCYTOSIS 2+; MACROCYTOSIS 1+; PLATELET ESTIMATE NORMAL
--- NOTE | 2020-06-30 12:59 | PN ---
Progress Note, Physician History of Present Illness: stable still with some abd pain - Current Medication List Current Medications: Active Medications Acetaminophen (Ofirmev Injection -) 1,000 mg IVPB Q6H PRN PRN Reason: PAIN 1-6 Last Admin: 06/29/20 17:27 Dose: 1,000 mg Documented by: Collagenase (Santyl -) 1 applic TP DAILY [facility]; Protocol Last Admin: 06/29/20 10:01 Dose: 1 applic Documented by: Ondansetron HCl (Zofran Injection) 4 mg IVPUSH Q6H PRN PRN Reason: NAUSEA Last Admin: 06/24/20 06:33 Dose: 4 mg Documented by: Pantoprazole Sodium (Protonix Iv) 40 mg IVPUSH DAILY [facility] Last Admin: 06/30/20 11:15 Dose: 40 mg Documented by: - Objective Vital Signs: Vital Signs Temperature 97.2 F L 06/30/20 06:00 Pulse Rate 84 06/30/20 06:00 Respiratory Rate 18 06/30/20 06:00 Blood Pressure 151/76 06/30/20 06:00 O2 Sat by Pulse Oximetry (%) 99 06/30/20 06:00 Constitutional: Yes: Calm, Mild Distress Cardiovascular: Yes: S1, S2 Respiratory: Yes: Regular, CTA Bilaterally Gastrointestinal: Yes: Normal Bowel Sounds, Soft, Other (ostomy fning) Musculoskeletal: Yes: WNL Extremities: Yes: WNL Neurological: Yes: Alert Psychiatric: Yes: Alert Labs: CBC, BMP 06/30/20 07:09 06/30/20 07:09 Assessment/Plan Problem List - Problems (1) Abdominal distension Code(s): R14.0 - ABDOMINAL DISTENSION (GASEOUS) (2) Abdominal pain Code(s): R10.9 - UNSPECIFIED ABDOMINAL PAIN Qualifiers: Abdominal location: generalized Qualified Code(s): R10.84 - Generalized abdominal pain (3) Chronic suprapubic catheter Code(s): Z93.59 - OTHER CYSTOSTOMY STATUS (4) Diabetes Code(s): E11.9 - TYPE 2 DIABETES MELLITUS WITHOUT COMPLICATIONS (5) Functional quadriplegia Code(s): R53.2 - FUNCTIONAL QUADRIPLEGIA (6) HTN (hypertension) Code(s): I10 - ESSENTIAL (PRIMARY) HYPERTENSION (7) SBO (small bowel obstruction) Code(s): K56.609 - UNSP INTESTNL OBST, UNSP TO PARTIAL VERSUS COMPLETE OBST (8) Sacral decubitus ulcer, stage IV Code(s): L89.154 - PRESSURE ULCER OF SACRAL REGION, STAGE 4 (9) Severe malnutrition Code(s): E43 - UNSPECIFIED SEVERE PROTEIN-CALORIE MALNUTRITIO plan continue monitoring off of abx wound care rest as per the team
[2020-06-30] MEDS: COLLAGENASE CLOSTRIDIUM HIST. 30 GRAMS TUBE TP SCH (13:51)
[2020-06-30] MEDS ORDERED: INSULIN (NOVOLOG MIX 70/30) 100 UNITS/ML MDV SQ ONE (16:35)
[2020-06-30] MEDS ORDERED: INSULIN (NOVOLOG) ASPART 100 UNITS/ML 10ML VIAL ONE (16:36)
--- NOTE | 2020-06-30 17:20 | PN ---
Progress Note (short form) - Note Progress Note: sonia sbo prerenal Active Medications Acetaminophen (Ofirmev Injection -) 1,000 mg IVPB Q6H PRN PRN Reason: PAIN 1-6 Last Admin: 06/29/20 17:27 Dose: 1,000 mg Documented by: Collagenase (Santyl -) 1 applic TP DAILY [facility]; Protocol Last Admin: 06/30/20 13:51 Dose: 1 applic Documented by: Ondansetron HCl (Zofran Injection) 4 mg IVPUSH Q6H PRN PRN Reason: NAUSEA Last Admin: 06/24/20 06:33 Dose: 4 mg Documented by: Pantoprazole Sodium (Protonix Iv) 40 mg IVPUSH DAILY [facility] Last Admin: 06/30/20 11:15 Dose: 40 mg Documented by: Last Vital Signs Temp Pulse Resp BP Pulse Ox 98.3 F 80 20 152/77 100 06/30/20 14:51 06/30/20 14:51 06/30/20 14:51 06/30/20 14:51 06/30/20 14:51 CBC, BMP 06/30/20 07:09 06/30/20 07:09
[2020-06-30] MEDS: ACETAMINOPHEN 1000 MG/100 ML VIAL (NON FORMULARY) IVPB PRN ×2 (18:11→23:42)
--- NOTE | 2020-06-30 22:18 | PN ---
Progress Note, Physician - Current Medication List Current Medications: Active Medications Acetaminophen (Ofirmev Injection -) 1,000 mg IVPB Q6H PRN PRN Reason: PAIN 1-6 Last Admin: 06/30/20 18:11 Dose: 1,000 mg Documented by: Collagenase (Santyl -) 1 applic TP DAILY [facility]; Protocol Last Admin: 06/30/20 13:51 Dose: 1 applic Documented by: Ondansetron HCl (Zofran Injection) 4 mg IVPUSH Q6H PRN PRN Reason: NAUSEA Last Admin: 06/24/20 06:33 Dose: 4 mg Documented by: Pantoprazole Sodium (Protonix Iv) 40 mg IVPUSH DAILY [facility] Last Admin: 06/30/20 11:15 Dose: 40 mg Documented by: - Objective Vital Signs: Vital Signs Temperature 97.6 F 06/30/20 19:40 Pulse Rate 83 06/30/20 19:40 Respiratory Rate 18 06/30/20 19:40 Blood Pressure 147/61 06/30/20 19:40 O2 Sat by Pulse Oximetry (%) 97 06/30/20 19:40 Labs: CBC, BMP 06/30/20 07:09 06/30/20 07:09 Problem List - Problems (1) SBO (small bowel obstruction) Code(s): K56.609 - UNSP INTESTNL OBST, UNSP TO PARTIAL VERSUS COMPLETE OBST (2) Decubitus ulcer of sacral region Code(s): L89.159 - PRESSURE ULCER OF SACRAL REGION, UNSPECIFIED STAGE (3) Anemia Code(s): D64.9 - ANEMIA, UNSPECIFIED (4) HTN (hypertension) Code(s): I10 - ESSENTIAL (PRIMARY) HYPERTENSION (5) Neurogenic bladder Code(s): N31.9 - NEUROMUSCULAR DYSFUNCTION OF BLADDER, UNSPECIFIED (6) Chronic suprapubic catheter Code(s): Z93.59 - OTHER CYSTOSTOMY STATUS (7) Functional quadriplegia Code(s): R53.2 - FUNCTIONAL QUADRIPLEGIA
[2020-06-30] MEDS ORDERED: SIMETHICONE 80 MG TAB.CHEW (FP) PO ONE (23:30)
--- NOTE | 2020-07-01 07:56 | PN ---
Progress Note, Physician History of Present Illness: stable still with some abd pain - Current Medication List Current Medications: Active Medications Acetaminophen (Ofirmev Injection -) 1,000 mg IVPB Q6H PRN PRN Reason: PAIN 1-6 Last Admin: 06/30/20 23:42 Dose: 1,000 mg Documented by: Collagenase (Santyl -) 1 applic TP DAILY LENORA; Protocol Last Admin: 06/30/20 13:51 Dose: 1 applic Documented by: Ondansetron HCl (Zofran Injection) 4 mg IVPUSH Q6H PRN PRN Reason: NAUSEA Last Admin: 06/24/20 06:33 Dose: 4 mg Documented by: Pantoprazole Sodium (Protonix Iv) 40 mg IVPUSH DAILY LENORA Last Admin: 06/30/20 11:15 Dose: 40 mg Documented by: - Objective Vital Signs: Vital Signs Temperature 97.7 F 07/01/20 04:00 Pulse Rate 83 07/01/20 04:00 Respiratory Rate 18 07/01/20 04:00 Blood Pressure 137/68 07/01/20 04:00 O2 Sat by Pulse Oximetry (%) 100 07/01/20 04:00 Constitutional: Yes: No Distress, Calm Cardiovascular: Yes: S1, S2 Respiratory: Yes: Regular, CTA Bilaterally Gastrointestinal: Yes: Normal Bowel Sounds, Soft, Other (ostomy in place) Musculoskeletal: Yes: WNL Extremities: Yes: WNL Neurological: Yes: Alert, Oriented Psychiatric: Yes: Alert, Oriented Labs: CBC, BMP 06/30/20 07:09 06/30/20 07:09 Assessment/Plan Problem List - Problems (1) Abdominal distension Code(s): R14.0 - ABDOMINAL DISTENSION (GASEOUS) (2) Abdominal pain Code(s): R10.9 - UNSPECIFIED ABDOMINAL PAIN Qualifiers: Abdominal location: generalized Qualified Code(s): R10.84 - Generalized abdominal pain (3) Chronic suprapubic catheter Code(s): Z93.59 - OTHER CYSTOSTOMY STATUS (4) Diabetes Code(s): E11.9 - TYPE 2 DIABETES MELLITUS WITHOUT COMPLICATIONS (5) Functional quadriplegia Code(s): R53.2 - FUNCTIONAL QUADRIPLEGIA (6) HTN (hypertension) Code(s): I10 - ESSENTIAL (PRIMARY) HYPERTENSION (7) SBO (small bowel obstruction) Code(s): K56.609 - UNSP INTESTNL OBST, UNSP TO PARTIAL VERSUS COMPLETE OBST (8) Sacral decubitus ulcer, stage IV Code(s): L89.154 - PRESSURE ULCER OF SACRAL REGION, STAGE 4 (9) Severe malnutrition Code(s): E43 - UNSPECIFIED SEVERE PROTEIN-CALORIE MALNUTRITIO plan continue monitoring off of abx wound care rest as per the team
[2020-07-01] MEDS: PANTOPRAZOLE SODIUM 40 MG VIAL IVPUSH SCH (11:00)
[2020-07-01] MEDS: COLLAGENASE CLOSTRIDIUM HIST. 30 GRAMS TUBE TP SCH (14:28)
--- NOTE | 2020-07-01 20:43 | PN ---
Progress Note, Physician History of Present Illness: No new complaints - Current Medication List Current Medications: Active Medications Acetaminophen (Ofirmev Injection -) 1,000 mg IVPB Q6H PRN PRN Reason: PAIN 1-6 Last Admin: 06/30/20 23:42 Dose: 1,000 mg Documented by: Collagenase (Santyl -) 1 applic TP DAILY LENORA; Protocol Last Admin: 07/01/20 14:28 Dose: 1 applic Documented by: Ondansetron HCl (Zofran Injection) 4 mg IVPUSH Q6H PRN PRN Reason: NAUSEA Last Admin: 06/24/20 06:33 Dose: 4 mg Documented by: Pantoprazole Sodium (Protonix Iv) 40 mg IVPUSH DAILY LENORA Last Admin: 07/01/20 11:00 Dose: 40 mg Documented by: - Objective Vital Signs: Vital Signs Temperature 98.5 F 07/01/20 18:28 Pulse Rate 75 07/01/20 18:28 Respiratory Rate 18 07/01/20 18:28 Blood Pressure 138/72 07/01/20 18:28 O2 Sat by Pulse Oximetry (%) 99 07/01/20 18:28 Neck: Yes: WNL, Supple Cardiovascular: Yes: WNL, Regular Rate and Rhythm Respiratory: Yes: WNL, Regular, CTA Bilaterally Gastrointestinal: Yes: WNL, Normal Bowel Sounds, Soft, Other ((+) colostomy) Labs: CBC, BMP 06/30/20 07:09 06/30/20 07:09 Problem List - Problems (1) SBO (small bowel obstruction) Assessment/Plan: Resolved DC planning for am Code(s): K56.609 - UNSP INTESTNL OBST, UNSP TO PARTIAL VERSUS COMPLETE OBST (2) Decubitus ulcer of sacral region Assessment/Plan: Wound culture noted Cont wound care Pt is now off antibxs Code(s): L89.159 - PRESSURE ULCER OF SACRAL REGION, UNSPECIFIED STAGE (3) Anemia Assessment/Plan: Anemia of chronic dz Code(s): D64.9 - ANEMIA, UNSPECIFIED (4) HTN (hypertension) Assessment/Plan: Pt not on any antihypertensives Code(s): I10 - ESSENTIAL (PRIMARY) HYPERTENSION (5) Neurogenic bladder Code(s): N31.9 - NEUROMUSCULAR DYSFUNCTION OF BLADDER, UNSPECIFIED (6) Chronic suprapubic catheter Code(s): Z93.59 - OTHER CYSTOSTOMY STATUS (7) Functional quadriplegia Code(s): R53.2 - FUNCTIONAL QUADRIPLEGIA
[2020-07-02] MEDS: PANTOPRAZOLE SODIUM 40 MG VIAL IVPUSH SCH (09:51)
[2020-07-02] MEDS: COLLAGENASE CLOSTRIDIUM HIST. 30 GRAMS TUBE TP SCH (09:51)
--- NOTE | 2020-07-02 10:13 | DS ---
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 Pt was found to have SBO and pt was made NPO and NG tube was placed. Pt was followed by surgery and NGT was removed and pt has been stable and tolerating diet. pt also followed BY ID for his sacral wound ulcer and was on IV antibxs wc have now been stopped. Cont ound care. t stable for discharge. Condition: Good - Instructions Diet, Activity, Other Instructions: Regular diet See Dr Cesar Sutherland in 1 week Referrals: Mansi Sutherland MD [Primary Care Provider] - Disposition: VNS/HOME HEALTH CARE - Home Medications Comprehensive Discharge Medication List: Ambulatory Orders Amino Acids/Protein Hydrolys [Prosource No Carb Liquid Pkt] 30 ml PO BID@0800,1730 #60 packet 03/20/20 Losartan Potassium [Cozaar -] 50 mg PO DAILY #30 tablet 03/20/20 Collagenase Clostridium Hist. [Santyl -] 1 applic TP DAILY #1 tube 06/30/20 Naph,Mb-Db/K pH,Mbdb [PHOS-NaK PACKET -] 1 packet PO BID #60 pow 06/30/20
--- NOTE | 2020-07-02 12:28 | PN ---
Progress Note, Physician History of Present Illness: Seem and examined at the bedside awake and alert offers no acute complaints tolerating oral diet no overnight events - Current Medication List Current Medications: Active Medications Acetaminophen (Ofirmev Injection -) 1,000 mg IVPB Q6H PRN PRN Reason: PAIN 1-6 Last Admin: 06/30/20 23:42 Dose: 1,000 mg Documented by: Collagenase (Santyl -) 1 applic TP DAILY LENORA; Protocol Last Admin: 07/02/20 09:51 Dose: 1 applic Documented by: Ondansetron HCl (Zofran Injection) 4 mg IVPUSH Q6H PRN PRN Reason: NAUSEA Last Admin: 06/24/20 06:33 Dose: 4 mg Documented by: Pantoprazole Sodium (Protonix Iv) 40 mg IVPUSH DAILY LENORA Last Admin: 07/02/20 09:51 Dose: 40 mg Documented by: - Objective Vital Signs: Vital Signs Temperature 98.1 F 07/02/20 10:00 Pulse Rate 77 07/02/20 10:00 Respiratory Rate 07/02/20 10:00 Blood Pressure 139/75 07/02/20 10:00 O2 Sat by Pulse Oximetry (%) 98 07/02/20 10:00 Constitutional: Yes: No Distress Neck: Yes: Supple Cardiovascular: Yes: Regular Rate and Rhythm Respiratory: Yes: Regular Gastrointestinal: Yes: Soft Edema: No Labs: CBC, BMP 06/30/20 07:09 06/30/20 07:09 Assessment/Plan 74 year old male with history of CVA, paraplegia, neurogenic bladder with supra-pubic catheter, hypertension, DM, sigmoid volvulus, sacral decubitis ulcer who presented with lower abdominal pain and found to small bowel obstruction and acute kidney injury. 1. Acute kidney injury likely secondary to volume depletion/ATN vs. obstruction 2. Distal Small bowel obstruction 3. Hx of Nephrolithiasis with obstruction with indwelling stent 4. Anemia 5. Hypertension 6. Cystitis/Urinary tract infection 7. Non anion gap metabolic acidosis 8. Hypophosphatemia Renal function stable oral intake as tolerated CT of the Abd/Pelvis showed no obstruction and indwelling stent. Urology following Trend H/H, no acute need for transfusion Tolerating oral diet check electrolytes in AM Thank you Arias Eubanks DO
--- NOTE | 2020-07-02 12:56 | PN ---
Progress Note, Physician History of Present Illness: stable no new issues - Current Medication List Current Medications: Active Medications Acetaminophen (Ofirmev Injection -) 1,000 mg IVPB Q6H PRN PRN Reason: PAIN 1-6 Last Admin: 06/30/20 23:42 Dose: 1,000 mg Documented by: Collagenase (Santyl -) 1 applic TP DAILY LENORA; Protocol Last Admin: 07/02/20 09:51 Dose: 1 applic Documented by: Ondansetron HCl (Zofran Injection) 4 mg IVPUSH Q6H PRN PRN Reason: NAUSEA Last Admin: 06/24/20 06:33 Dose: 4 mg Documented by: Pantoprazole Sodium (Protonix Iv) 40 mg IVPUSH DAILY LENORA Last Admin: 07/02/20 09:51 Dose: 40 mg Documented by: - Objective Vital Signs: Vital Signs Temperature 98.1 F 07/02/20 10:00 Pulse Rate 77 07/02/20 10:00 Respiratory Rate 20 07/02/20 10:00 Blood Pressure 139/75 07/02/20 10:00 O2 Sat by Pulse Oximetry (%) 98 07/02/20 10:00 Constitutional: Yes: No Distress, Calm Cardiovascular: Yes: S1, S2 Respiratory: Yes: Regular, CTA Bilaterally Gastrointestinal: Yes: Normal Bowel Sounds, Soft Musculoskeletal: Yes: WNL Extremities: Yes: WNL Neurological: Yes: Alert Psychiatric: Yes: Alert Labs: CBC, BMP 06/30/20 07:09 06/30/20 07:09 Assessment/Plan Problem List - Problems (1) Abdominal distension Code(s): R14.0 - ABDOMINAL DISTENSION (GASEOUS) (2) Abdominal pain Code(s): R10.9 - UNSPECIFIED ABDOMINAL PAIN Qualifiers: Abdominal location: generalized Qualified Code(s): R10.84 - Generalized abdominal pain (3) Chronic suprapubic catheter Code(s): Z93.59 - OTHER CYSTOSTOMY STATUS (4) Diabetes Code(s): E11.9 - TYPE 2 DIABETES MELLITUS WITHOUT COMPLICATIONS (5) Functional quadriplegia Code(s): R53.2 - FUNCTIONAL QUADRIPLEGIA (6) HTN (hypertension) Code(s): I10 - ESSENTIAL (PRIMARY) HYPERTENSION (7) SBO (small bowel obstruction) Code(s): K56.609 - UNSP INTESTNL OBST, UNSP TO PARTIAL VERSUS COMPLETE OBST (8) Sacral decubitus ulcer, stage IV Code(s): L89.154 - PRESSURE ULCER OF SACRAL REGION, STAGE 4 (9) Severe malnutrition Code(s): E43 - UNSPECIFIED SEVERE PROTEIN-CALORIE MALNUTRITIO plan continue monitoring off of abx wound care rest as per the team
--- NOTE | 2020-07-02 21:41 | PN ---
Progress Note, Physician History of Present Illness: No new complaints - Current Medication List Current Medications: Active Medications Acetaminophen (Ofirmev Injection -) 1,000 mg IVPB Q6H PRN PRN Reason: PAIN 1-6 Last Admin: 06/30/20 23:42 Dose: 1,000 mg Documented by: Collagenase (Santyl -) 1 applic TP DAILY LENORA; Protocol Last Admin: 07/02/20 09:51 Dose: 1 applic Documented by: Ondansetron HCl (Zofran Injection) 4 mg IVPUSH Q6H PRN PRN Reason: NAUSEA Last Admin: 06/24/20 06:33 Dose: 4 mg Documented by: Pantoprazole Sodium (Protonix Iv) 40 mg IVPUSH DAILY LENORA Last Admin: 07/02/20 09:51 Dose: 40 mg Documented by: - Objective Vital Signs: Vital Signs Temperature 98.1 F 07/02/20 10:00 Pulse Rate 77 07/02/20 10:00 Respiratory Rate 20 07/02/20 10:00 Blood Pressure 139/75 07/02/20 10:00 O2 Sat by Pulse Oximetry (%) 98 07/02/20 10:00 Cardiovascular: Yes: WNL, Regular Rate and Rhythm Respiratory: Yes: WNL, Regular, CTA Bilaterally Gastrointestinal: Yes: Normal Bowel Sounds, Soft, Other ((+) ostomy) Labs: CBC, BMP 06/30/20 07:09 06/30/20 07:09 Problem List - Problems (1) SBO (small bowel obstruction) Assessment/Plan: Resolved DC planning for am Code(s): K56.609 - UNSP INTESTNL OBST, UNSP TO PARTIAL VERSUS COMPLETE OBST (2) Decubitus ulcer of sacral region Assessment/Plan: Wound culture noted Cont wound care Pt is now off antibxs Code(s): L89.159 - PRESSURE ULCER OF SACRAL REGION, UNSPECIFIED STAGE (3) Anemia Assessment/Plan: Anemia of chronic dz Code(s): D64.9 - ANEMIA, UNSPECIFIED (4) HTN (hypertension) Assessment/Plan: Pt not on any antihypertensives Code(s): I10 - ESSENTIAL (PRIMARY) HYPERTENSION (5) Neurogenic bladder Code(s): N31.9 - NEUROMUSCULAR DYSFUNCTION OF BLADDER, UNSPECIFIED (6) Chronic suprapubic catheter Code(s): Z93.59 - OTHER CYSTOSTOMY STATUS (7) Functional quadriplegia Code(s): R53.2 - FUNCTIONAL QUADRIPLEGIA
[2020-07-03 08:38] VITALS: BP 143/78; PULSE 81; TEMP 97.9
[2020-07-03] MEDS: COLLAGENASE CLOSTRIDIUM HIST. 30 GRAMS TUBE TP SCH (08:59)
[2020-07-03] MEDS: PANTOPRAZOLE SODIUM 40 MG VIAL IVPUSH SCH (08:59)
== END 2020-07-03 10:25 | disposition home health service (06) | DRG 388 ==
LOC: JER 06:42 → JERBED 12:54 → J7W 06-19 18:02
PROVIDERS: ADMIT Internal Medicine; ATTEND Internal Medicine
PROC: 0D9670Z Drainage of Stomach with Drainage Device, Via Natural or Artificial Opening (ICD-10-PCS; principal; 2020-06-18)
DX: K56.609 Unspecified intestinal obstruction, unspecified as to partial versus complete obstruction (principal); L89.154 Pressure ulcer of sacral region, stage 4; R53.2 Functional quadriplegia; E43 Unspecified severe protein-calorie malnutrition; N17.9 Acute kidney failure, unspecified; E87.2 Acidosis; N39.0 Urinary tract infection, site not specified; Z16.12 Extended spectrum beta lactamase (ESBL) resistance; E87.0 Hyperosmolality and hypernatremia; R14.0 Abdominal distension (gaseous); D64.9 Anemia, unspecified; N31.9 Neuromuscular dysfunction of bladder, unspecified; I10 Essential (primary) hypertension; E11.9 Type 2 diabetes mellitus without complications; E83.39 Other disorders of phosphorus metabolism; Z93.6 Other artificial openings of urinary tract status; Z93.50 Unspecified cystostomy status; Z68.23 Body mass index [BMI] 23.0-23.9, adult; Z86.73 Personal history of transient ischemic attack (TIA), and cerebral infarction without residual deficits; Z88.0 Allergy status to penicillin
CPT/HCPCS: 36415; 71045-TC-FY; 74018-TC-FY; 74021-TC-FY; 74176-TC; 76775-TC; 76856-TC; 80048; 80053; 81003; 82565; 82962; 83605; 83690; 83735; 84100; 84156; 84300; 84484; 85025; 87070; 87086; 87186; 87205; 93005; 93010; 97116-GP; 97161-GP; 99285-25; J0131; J1644; U0003

== ENCOUNTER 2020-10-19 18:35 | Inpatient (IN) | payer MEDICARE, OTHER ==
[2020-10-19 18:49] VITALS: BMI 24.3
[2020-10-19] MEDS ORDERED: SODIUM CHLORIDE 2,109 ML IV ONE (18:49)
[2020-10-19 19:51] LABS: BASO % 0.6 % (0-2.0); EOS % 16.4 % (0-4.5); HEMATOCRIT 34.1 % (35.4-49); HEMOGLOBIN 10.7 GM/dL (11.7-16.9); LYMPH % 25.8 % (8-40); MCH 23.3 pg (25.7-33.7); MCHC 31.3 g/dl (32.0-35.9); MEAN CELL VOLUME 74.4 fl (80-96); MEAN PLT VOLUME 6.8 fl (7.5-11.1); MONO % 8.9 % (3.8-10.2); NEUT % 48.3 % (42.8-82.8); PLATELET COUNT 237 K/MM3 (134-434); RBC 4.59 M/mm3 (4.00-5.60); RDW 20.7 % (11.9-15.9)
[2020-10-19 19:59] LABS: INR 0.97 (0.83-1.09); PROTHROMBIN TIME (PATIENT) 11.9 SEC (9.7-13.0)
[2020-10-19 20:02] LABS: ACTIVATED PTT 29.5 SECONDS (25.2-36.5)
[2020-10-19 20:12] LABS: CHLORIDE 102 mmol/L (98-107); POTASSIUM 4.3 mmol/L (3.5-5.1); SODIUM 135 mmol/L (136-145)
[2020-10-19 20:14] LABS: ALBUMIN 3.2 g/dl (3.4-5.0); ANION GAP 7 MMOL/L (8-16); CALCIUM 9.1 mg/dL (8.5-10.1); CO2 26 mmol/L (21-32)
[2020-10-19 20:15] LABS: BLOOD UREA NITROGEN 32.4 mg/dL (7-18); GLUCOSE,RANDOM 145 mg/dL (74-106)
[2020-10-19 20:18] LABS: CREATININE 1.5 mg/dL (0.55-1.3); SGOT/AST 13 U/L (15-37); SGPT/ALT 14 U/L (13-61)
[2020-10-19 20:19] LABS: BILIRUBIN,TOTAL 0.3 mg/dL (0.2-1); TOT PROT 7.1 g/dl (6.4-8.2)
[2020-10-19 20:20] LABS: ALK PHOS 88 U/L (45-117)
[2020-10-19 21:17] LABS: EPI CELLS 28 /uL (0-25.1); HYALINE CASTS 491 /uL (0-3.1); PH,URINE 8.5 (5.0-8.0); URINE APPEARANCE TURBID; URINE BACTERIA 6014 /uL (0-1359); URINE BILIRUBIN 2+ (NEGATIVE); URINE COLOR RED; URINE GLUCOSE (UA) NEGATIVE (NEGATIVE); URINE KETONE NEGATIVE (NEGATIVE); URINE LEUK ESTERASE 3+ (NEGATIVE); URINE NITRITE POSITIVE (NEGATIVE); URINE PROTEIN 3+ (NEGATIVE); URINE UROBILINOGEN 0.2 mg/dL (0.2-1.0); URINE WBC 7611 /uL (0-25.8)
[2020-10-19 21:28] LABS: URINE RBC 4540.3 /uL (0-23.9); YEAST NEGATIVE (NEGATIVE)
[2020-10-19 21:29] LABS: URINE CRYSTALS FEW /hpf
[2020-10-19 21:39] LABS: ANISOCYTOSIS 2+; MACROCYTOSIS 0; PLATELET ESTIMATE NORMAL
[2020-10-19 21:58] LABS: VENOUS BASE EXCESS -1.5 mmol/L (-2-2); VENOUS O2 SATURATION 57.8 % (70-80); VENOUS PCO2 54.8 mmHg (38-52); VENOUS PH 7.288 (7.310-7.410)
[2020-10-19] MEDS ORDERED: AZTREONAM 1 GM in DEXTROSE 5%-WATER - 50 ML IVPB ONE (22:36)
[2020-10-19] MEDS ORDERED: ACETAMINOPHEN 1000 MG/100 ML VIAL (NON FORMULARY) IVPB ONE (22:39)
[2020-10-19] MEDS ORDERED: SODIUM CHLORIDE 1,000 ML IV SCH (22:45)
[2020-10-19] MEDS ORDERED: ACETAMINOPHEN INJECTION 100 ML IVPB ONE (23:47)
[2020-10-20] MEDS: DEXTROSE 5%-0.45% SALINE 1,000 ML IV SCH ×2 (01:00→23:53)
[2020-10-20] MEDS ORDERED: AZTREONAM 1 GM VIAL (RESTRICTED TO ID) ONE (01:30)
[2020-10-20] MEDS ORDERED: ONDANSETRON 4 MG/2 ML VIAL IVPUSH ONE (04:48)
[2020-10-20] MEDS ORDERED: ONDANSETRON 4 MG/2 ML VIAL ONE (05:22)
[2020-10-20] MEDS ORDERED: ENOXAPARIN NA (PORCINE) 40 MG/0.4 ML DISP.SYRIN SQ ONE (08:32)
[2020-10-20] MEDS: COLLAGENASE CLOSTRIDIUM HIST. 30 GRAMS TUBE TP SCH (10:33)
[2020-10-20] MEDS: ENOXAPARIN NA (PORCINE) 40 MG/0.4 ML DISP.SYRIN SQ SCH (10:33)
[2020-10-20 11:43] LABS: BASO % 0.2 % (0-2.0); HEMATOCRIT 33.8 % (35.4-49); HEMOGLOBIN 10.9 GM/dL (11.7-16.9); LYMPH % 7.9 % (8-40); MCH 23.7 pg (25.7-33.7); MCHC 32.1 g/dl (32.0-35.9); MEAN CELL VOLUME 73.8 fl (80-96); MEAN PLT VOLUME 6.5 fl (7.5-11.1); MONO % 6.1 % (3.8-10.2); NEUT % 85.8 % (42.8-82.8); PLATELET COUNT 241 K/MM3 (134-434); RBC 4.58 M/mm3 (4.00-5.60); RDW 20.5 % (11.9-15.9); WHITE BLOOD COUNT 9.4 K/mm3 (4.0-10.0)
[2020-10-20 11:59] LABS: POTASSIUM 4.3 mmol/L (3.5-5.1)
[2020-10-20 12:05] LABS: CALCIUM 8.7 mg/dL (8.5-10.1)
[2020-10-20 12:06] LABS: ALBUMIN 3.1 g/dl (3.4-5.0); BLOOD UREA NITROGEN 38.8 mg/dL (7-18)
[2020-10-20 12:09] LABS: CREATININE 1.9 mg/dL (0.55-1.3)
[2020-10-20 12:10] LABS: BILIRUBIN,TOTAL 1.2 mg/dL (0.2-1); TOT PROT 7.1 g/dl (6.4-8.2)
[2020-10-20] MEDS ORDERED: MEROPENEM 1 GM VIAL (RESTRICTED TO ID) IVPB ONE (16:43)
[2020-10-20] MEDS: MEROPENEM 1 GM in DEXTROSE 5%-WATER 100 ML IVPB SCH (17:38)
[2020-10-20] MEDS ORDERED: ACETAMINOPHEN INJECTION 100 ML IVPB ONE ×2 (17:46→21:12)
[2020-10-20] MEDS ORDERED: PANTOPRAZOLE SODIUM 40 MG VIAL IVPUSH ONE (21:07)
[2020-10-20] MEDS ORDERED: PANTOPRAZOLE SODIUM 40 MG VIAL ONE (21:10)
[2020-10-20] MEDS: ACETAMINOPHEN 1000 MG/100 ML VIAL (NON FORMULARY) IVPB PRN (21:22)
[2020-10-20] MEDS ORDERED: MORPHINE SULFATE 2 MG/ML VIAL IVPUSH PRN (23:31)
[2020-10-20 23:57] LABS: BASO % 0.1 % (0-2.0); EOS % 0.1 % (0-4.5); HEMATOCRIT 32.3 % (35.4-49); HEMOGLOBIN 10.3 GM/dL (11.7-16.9); LYMPH % 11.2 % (8-40); MCH 23.3 pg (25.7-33.7); MCHC 31.8 g/dl (32.0-35.9); MEAN CELL VOLUME 73.4 fl (80-96); MEAN PLT VOLUME 6.6 fl (7.5-11.1); MONO % 9.5 % (3.8-10.2); NEUT % 79.1 % (42.8-82.8); PLATELET COUNT 255 K/MM3 (134-434); RDW 20.1 % (11.9-15.9); WHITE BLOOD COUNT 11.8 K/mm3 (4.0-10.0)
[2020-10-21] MEDS ORDERED: MEROPENEM 1 GM VIAL (RESTRICTED TO ID) IVPB ONE ×2 (02:18→14:19)
[2020-10-21] MEDS: MEROPENEM 1 GM in DEXTROSE 5%-WATER 100 ML IVPB SCH ×2 (02:53→14:30)
[2020-10-21] MEDS ORDERED: ACETAMINOPHEN INJECTION 100 ML IVPB ONE (07:39)
[2020-10-21] MEDS ORDERED: MORPHINE SULFATE 2 MG/ML VIAL ONE ×2 (07:39→23:31)
[2020-10-21] MEDS: MORPHINE SULFATE 2 MG/ML VIAL IVPUSH PRN ×2 (07:47→23:38)
[2020-10-21] MEDS: ACETAMINOPHEN 1000 MG/100 ML VIAL (NON FORMULARY) IVPB PRN (07:48)
[2020-10-21] MEDS ORDERED: PANTOPRAZOLE SODIUM 40 MG/100 ML BAG IVPB ONE (11:04)
[2020-10-21] MEDS ORDERED: ENOXAPARIN NA (PORCINE) 40 MG/0.4 ML DISP.SYRIN SQ ONE (11:05)
[2020-10-21] MEDS: PANTOPRAZOLE SODIUM 40 MG VIAL IVPUSH SCH (11:18)
[2020-10-21] MEDS: ENOXAPARIN NA (PORCINE) 40 MG/0.4 ML DISP.SYRIN SQ SCH (11:18)
[2020-10-21] MEDS: COLLAGENASE CLOSTRIDIUM HIST. 30 GRAMS TUBE TP SCH (11:53)
[2020-10-21 18:57] LABS: BASO % 0.5 % (0-2.0); EOS % 2.1 % (0-4.5); HEMATOCRIT 28.9 % (35.4-49); HEMOGLOBIN 9.1 GM/dL (11.7-16.9); LYMPH % 18.3 % (8-40); MCH 23.9 pg (25.7-33.7); MCHC 31.5 g/dl (32.0-35.9); MEAN CELL VOLUME 75.9 fl (80-96); MEAN PLT VOLUME 6.8 fl (7.5-11.1); MONO % 11.5 % (3.8-10.2); NEUT % 67.6 % (42.8-82.8); PLATELET COUNT 174 K/MM3 (134-434); RBC 3.81 M/mm3 (4.00-5.60); RDW 20.8 % (11.9-15.9)
[2020-10-21 19:07] LABS: POTASSIUM 4.2 mmol/L (3.5-5.1)
[2020-10-21 19:11] LABS: ALBUMIN 2.5 g/dl (3.4-5.0); BLOOD UREA NITROGEN 43.1 mg/dL (7-18); CALCIUM 7.9 mg/dL (8.5-10.1)
[2020-10-21 19:14] LABS: CREATININE 2.6 mg/dL (0.55-1.3)
[2020-10-21 19:16] LABS: BILIRUBIN,TOTAL 0.2 mg/dL (0.2-1); TOT PROT 5.8 g/dl (6.4-8.2)
[2020-10-22] MEDS: DEXTROSE 5%-0.45% SALINE 1,000 ML IV SCH ×2 (00:09→16:06)
[2020-10-22] MEDS ORDERED: MEROPENEM 1 GM VIAL (RESTRICTED TO ID) IVPB ONE (03:25)
[2020-10-22] MEDS: MEROPENEM 1 GM in DEXTROSE 5%-WATER 100 ML IVPB SCH ×2 (03:37→16:24)
[2020-10-22 07:59] LABS: BASO % 0.3 % (0-2.0); HEMATOCRIT 28.4 % (35.4-49); HEMOGLOBIN 9.1 GM/dL (11.7-16.9); LYMPH % 15.2 % (8-40); MCH 24.1 pg (25.7-33.7); MEAN CELL VOLUME 75.3 fl (80-96); MEAN PLT VOLUME 6.9 fl (7.5-11.1); NEUT % 65.5 % (42.8-82.8); PLATELET COUNT 176 K/MM3 (134-434); RBC 3.77 M/mm3 (4.00-5.60); RDW 20.8 % (11.9-15.9); WHITE BLOOD COUNT 7.8 K/mm3 (4.0-10.0)
[2020-10-22 08:26] LABS: POTASSIUM 4.1 mmol/L (3.5-5.1)
[2020-10-22 08:36] LABS: ALBUMIN 2.6 g/dl (3.4-5.0); BLOOD UREA NITROGEN 44.3 mg/dL (7-18); CALCIUM 7.9 mg/dL (8.5-10.1)
[2020-10-22 08:39] LABS: CREATININE 1.9 mg/dL (0.55-1.3)
[2020-10-22 08:40] LABS: BILIRUBIN,TOTAL 0.4 mg/dL (0.2-1)
[2020-10-22 08:41] LABS: TOT PROT 5.9 g/dl (6.4-8.2)
[2020-10-22] MEDS ORDERED: MORPHINE SULFATE 2 MG/ML VIAL ONE (11:27)
[2020-10-22] MEDS: MORPHINE SULFATE 2 MG/ML VIAL IVPUSH PRN ×2 (11:50→20:54)
[2020-10-22] MEDS: COLLAGENASE CLOSTRIDIUM HIST. 30 GRAMS TUBE TP SCH (11:59)
[2020-10-22] MEDS: PANTOPRAZOLE SODIUM 40 MG VIAL IVPUSH SCH (11:59)
[2020-10-22] MEDS: ENOXAPARIN NA (PORCINE) 40 MG/0.4 ML DISP.SYRIN SQ SCH (11:59)
[2020-10-23] MEDS: MORPHINE SULFATE 2 MG/ML VIAL IVPUSH PRN (03:27)
[2020-10-23] MEDS: MEROPENEM 1 GM in DEXTROSE 5%-WATER 100 ML IVPB SCH ×2 (03:39→16:11)
[2020-10-23] MEDS: DEXTROSE 5%-0.45% SALINE 1,000 ML IV SCH (04:10)
[2020-10-23] MEDS: ENOXAPARIN NA (PORCINE) 40 MG/0.4 ML DISP.SYRIN SQ SCH (10:04)
[2020-10-23 12:29] LABS: BASO % 0.5 % (0-2.0); HEMATOCRIT 26.7 % (35.4-49); HEMOGLOBIN 8.5 GM/dL (11.7-16.9); LYMPH % 16.9 % (8-40); MCH 23.9 pg (25.7-33.7); MEAN CELL VOLUME 74.6 fl (80-96); MEAN PLT VOLUME 6.8 fl (7.5-11.1); MONO % 9.7 % (3.8-10.2); NEUT % 58.9 % (42.8-82.8); PLATELET COUNT 180 K/MM3 (134-434); RBC 3.58 M/mm3 (4.00-5.60); WHITE BLOOD COUNT 6.9 K/mm3 (4.0-10.0)
[2020-10-23] MEDS: PANTOPRAZOLE SODIUM 40 MG VIAL IVPUSH SCH (12:36)
[2020-10-23] MEDS: COLLAGENASE CLOSTRIDIUM HIST. 30 GRAMS TUBE TP SCH (12:36)
[2020-10-23 12:59] LABS: POTASSIUM 4.1 mmol/L (3.5-5.1)
[2020-10-23 13:07] LABS: ALBUMIN 2.4 g/dl (3.4-5.0); CALCIUM 8.3 mg/dL (8.5-10.1)
[2020-10-23 13:10] LABS: CREATININE 1.3 mg/dL (0.55-1.3)
[2020-10-23 13:12] LABS: BILIRUBIN,TOTAL 0.7 mg/dL (0.2-1); TOT PROT 5.7 g/dl (6.4-8.2)
[2020-10-24] MEDS: DEXTROSE 5%-0.45% SALINE 1,000 ML IV SCH ×2 (01:52→23:00)
[2020-10-24] MEDS: MEROPENEM 1 GM in DEXTROSE 5%-WATER 100 ML IVPB SCH ×2 (03:30→16:23)
[2020-10-24] MEDS: ENOXAPARIN NA (PORCINE) 40 MG/0.4 ML DISP.SYRIN SQ SCH (10:21)
[2020-10-24] MEDS: COLLAGENASE CLOSTRIDIUM HIST. 30 GRAMS TUBE TP SCH (10:21)
[2020-10-24] MEDS: PANTOPRAZOLE SODIUM 40 MG VIAL IVPUSH SCH (10:22)
[2020-10-24 11:36] LABS: BASO % 0.4 % (0-2.0); EOS % 19.2 % (0-4.5); HEMATOCRIT 26.7 % (35.4-49); HEMOGLOBIN 8.5 GM/dL (11.7-16.9); LYMPH % 15.5 % (8-40); MCH 23.8 pg (25.7-33.7); MCHC 31.7 g/dl (32.0-35.9); MEAN CELL VOLUME 75.1 fl (80-96); MEAN PLT VOLUME 6.9 fl (7.5-11.1); NEUT % 56.9 % (42.8-82.8); PLATELET COUNT 183 K/MM3 (134-434); RBC 3.56 M/mm3 (4.00-5.60); RDW 19.9 % (11.9-15.9); WHITE BLOOD COUNT 6.7 K/mm3 (4.0-10.0)
[2020-10-24 12:05] LABS: POTASSIUM 3.3 mmol/L (3.5-5.1)
[2020-10-24 12:11] LABS: BLOOD UREA NITROGEN 25.6 mg/dL (7-18)
[2020-10-24 12:12] LABS: ALBUMIN 2.3 g/dl (3.4-5.0); CALCIUM 8.2 mg/dL (8.5-10.1)
[2020-10-24 12:13] LABS: MAGNESIUM 1.9 mg/dL (1.8-2.4)
[2020-10-24 12:16] LABS: BILIRUBIN,TOTAL 0.3 mg/dL (0.2-1); TOT PROT 5.5 g/dl (6.4-8.2)
[2020-10-24] MEDS: AMINO ACIDS/PROTEIN HYDROLYS 30 ML LIQUID.PKT PO SCH (18:43)
[2020-10-24] MEDS: NAPH,MB-DB/K PH,MBDB POWDER PACKET PO SCH (21:05)
[2020-10-25] MEDS: MEROPENEM 1 GM in DEXTROSE 5%-WATER 100 ML IVPB SCH ×2 (03:30→16:23)
[2020-10-25] MEDS: ENOXAPARIN NA (PORCINE) 40 MG/0.4 ML DISP.SYRIN SQ SCH (09:55)
[2020-10-25] MEDS: AMINO ACIDS/PROTEIN HYDROLYS 30 ML LIQUID.PKT PO SCH ×2 (09:55→18:32)
[2020-10-25] MEDS: PANTOPRAZOLE SODIUM 40 MG VIAL IVPUSH SCH (09:55)
[2020-10-25] MEDS: NAPH,MB-DB/K PH,MBDB POWDER PACKET PO SCH ×2 (09:55→21:37)
[2020-10-25] MEDS: COLLAGENASE CLOSTRIDIUM HIST. 30 GRAMS TUBE TP SCH (09:55)
[2020-10-25] MEDS: LOSARTAN POTASSIUM 50 MG TABLET PO SCH (09:55)
[2020-10-25] MEDS ORDERED: POTASSIUM CHLORIDE ORAL LIQUID 20 MEQ/15 ML PO ONE (12:12)
[2020-10-25 15:03] LABS: PHOSPHOROUS 1.6 mg/dL (2.5-4.9)
[2020-10-25] MEDS: D5-1/2NS+40 MEQ KCL - 40 MEQ/1,000 ML INFUS.BAG IV SCH (15:57)
[2020-10-26] MEDS: D5-1/2NS+40 MEQ KCL - 40 MEQ/1,000 ML INFUS.BAG IV SCH ×2 (05:12→13:40)
[2020-10-26] MEDS ORDERED: AMINO ACIDS/PROTEIN HYDROLYS 30 ML LIQUID.PKT PO SCH (08:00)
[2020-10-26 09:41] LABS: POTASSIUM 4.7 mmol/L (3.5-5.1)
[2020-10-26 09:54] LABS: BLOOD UREA NITROGEN 25.2 mg/dL (7-18); CREATININE 0.9 mg/dL (0.55-1.3)
[2020-10-26 09:55] LABS: BILIRUBIN,TOTAL 0.2 mg/dL (0.2-1)
[2020-10-26 09:56] LABS: ALBUMIN 2.2 g/dl (3.4-5.0); CALCIUM 8.1 mg/dL (8.5-10.1); MAGNESIUM 1.9 mg/dL (1.8-2.4); PHOSPHOROUS 2.8 mg/dL (2.5-4.9); TOT PROT 5.5 g/dl (6.4-8.2)
[2020-10-26 10:03] LABS: BASO % 0.6 % (0-2.0); EOS % 21.9 % (0-4.5); HEMATOCRIT 26.4 % (35.4-49); HEMOGLOBIN 8.5 GM/dL (11.7-16.9); LYMPH % 24.1 % (8-40); MCH 23.9 pg (25.7-33.7); MCHC 32.1 g/dl (32.0-35.9); MEAN CELL VOLUME 74.6 fl (80-96); MEAN PLT VOLUME 6.6 fl (7.5-11.1); MONO % 10.5 % (3.8-10.2); NEUT % 42.9 % (42.8-82.8); PLATELET COUNT 192 K/MM3 (134-434); RBC 3.54 M/mm3 (4.00-5.60); RDW 19.5 % (11.9-15.9); WHITE BLOOD COUNT 6.7 K/mm3 (4.0-10.0)
[2020-10-26] MEDS: AMINO ACIDS/PROTEIN HYDROLYS 30 ML LIQUID.PKT PO SCH ×2 (10:42→19:10)
[2020-10-26] MEDS: LOSARTAN POTASSIUM 50 MG TABLET PO SCH (10:43)
[2020-10-26] MEDS: PANTOPRAZOLE SODIUM 40 MG VIAL IVPUSH SCH (10:44)
[2020-10-26] MEDS: COLLAGENASE CLOSTRIDIUM HIST. 30 GRAMS TUBE TP SCH (10:44)
[2020-10-26] MEDS: NAPH,MB-DB/K PH,MBDB POWDER PACKET PO SCH ×2 (10:44→21:22)
[2020-10-26] MEDS: ENOXAPARIN NA (PORCINE) 40 MG/0.4 ML DISP.SYRIN SQ SCH (10:44)
[2020-10-26] MEDS: MULTIVITAMINS (DAILY MVI) TABLET (FP) PO SCH (13:39)
[2020-10-26 14:01] LABS: ANISOCYTOSIS 1+; MACROCYTOSIS 0; OVALOCYTE 1+; PLATELET ESTIMATE NORMAL; TEAR DROP CELLS 1+
[2020-10-27] MEDS: AMINO ACIDS/PROTEIN HYDROLYS 30 ML LIQUID.PKT PO SCH ×2 (10:06→17:17)
[2020-10-27] MEDS: PANTOPRAZOLE SODIUM 40 MG VIAL IVPUSH SCH (10:06)
[2020-10-27] MEDS: LOSARTAN POTASSIUM 50 MG TABLET PO SCH (10:06)
[2020-10-27] MEDS: MULTIVITAMINS (DAILY MVI) TABLET (FP) PO SCH (10:06)
[2020-10-27] MEDS: NAPH,MB-DB/K PH,MBDB POWDER PACKET PO SCH ×2 (10:06→21:07)
[2020-10-27] MEDS: D5-1/2NS+40 MEQ KCL - 40 MEQ/1,000 ML INFUS.BAG IV SCH (13:58)
[2020-10-27] MEDS: COLLAGENASE CLOSTRIDIUM HIST. 30 GRAMS TUBE TP SCH (17:17)
[2020-10-28] MEDS: AMINO ACIDS/PROTEIN HYDROLYS 30 ML LIQUID.PKT PO SCH ×2 (08:29→17:34)
[2020-10-28 10:08] LABS: BASO % 0.9 % (0-2.0); EOS % 18.7 % (0-4.5); HEMATOCRIT 27.6 % (35.4-49); HEMOGLOBIN 8.8 GM/dL (11.7-16.9); LYMPH % 23.4 % (8-40); MCH 23.8 pg (25.7-33.7); MCHC 31.8 g/dl (32.0-35.9); MEAN CELL VOLUME 74.9 fl (80-96); MEAN PLT VOLUME 6.9 fl (7.5-11.1); MONO % 9.9 % (3.8-10.2); NEUT % 47.1 % (42.8-82.8); PLATELET COUNT 212 K/MM3 (134-434); RBC 3.68 M/mm3 (4.00-5.60); RDW 19.3 % (11.9-15.9)
[2020-10-28 10:24] LABS: POTASSIUM 5.4 mmol/L (3.5-5.1)
[2020-10-28 10:41] LABS: ALBUMIN 2.3 g/dl (3.4-5.0); BLOOD UREA NITROGEN 26.2 mg/dL (7-18); CALCIUM 8.4 mg/dL (8.5-10.1)
[2020-10-28 10:47] LABS: BILIRUBIN,TOTAL 0.3 mg/dL (0.2-1); TOT PROT 5.5 g/dl (6.4-8.2)
[2020-10-28] MEDS: LOSARTAN POTASSIUM 50 MG TABLET PO SCH (11:01)
[2020-10-28] MEDS: PANTOPRAZOLE 40 MG TABLET PO SCH (11:01)
[2020-10-28] MEDS: MULTIVITAMINS (DAILY MVI) TABLET (FP) PO SCH (11:01)
[2020-10-28] MEDS: NAPH,MB-DB/K PH,MBDB POWDER PACKET PO SCH ×2 (11:16→21:04)
[2020-10-28] MEDS: COLLAGENASE CLOSTRIDIUM HIST. 30 GRAMS TUBE TP SCH (12:00)
[2020-10-28] MEDS: D5-1/2NS+40 MEQ KCL - 40 MEQ/1,000 ML INFUS.BAG IV SCH (14:03)
[2020-10-28] MEDS: AZTREONAM 1 GM in DEXTROSE 5%-WATER - 50 ML IVPB SCH (18:59)
[2020-10-28] MEDS: LINEZOLID 600 MG PREMIX BAG 600 MG/300 ML BAG IVPB SCH (20:35)
[2020-10-29] MEDS: AZTREONAM 1 GM in DEXTROSE 5%-WATER - 50 ML IVPB SCH ×3 (02:09→17:32)
[2020-10-29] MEDS: LINEZOLID 600 MG PREMIX BAG 600 MG/300 ML BAG IVPB SCH ×2 (06:04→18:27)
[2020-10-29] MEDS: AMINO ACIDS/PROTEIN HYDROLYS 30 ML LIQUID.PKT PO SCH ×2 (08:11→17:31)
[2020-10-29] MEDS: COLLAGENASE CLOSTRIDIUM HIST. 30 GRAMS TUBE TP SCH (10:11)
[2020-10-29] MEDS: NAPH,MB-DB/K PH,MBDB POWDER PACKET PO SCH (10:11)
[2020-10-29] MEDS: PANTOPRAZOLE 40 MG TABLET PO SCH (10:11)
[2020-10-29] MEDS: LOSARTAN POTASSIUM 50 MG TABLET PO SCH (10:11)
[2020-10-29] MEDS: MULTIVITAMINS (DAILY MVI) TABLET (FP) PO SCH (10:11)
[2020-10-30] MEDS: AZTREONAM 1 GM in DEXTROSE 5%-WATER - 50 ML IVPB SCH ×3 (02:40→17:33)
[2020-10-30] MEDS: LINEZOLID 600 MG PREMIX BAG 600 MG/300 ML BAG IVPB SCH ×2 (06:06→18:14)
[2020-10-30] MEDS: MULTIVITAMINS (DAILY MVI) TABLET (FP) PO SCH (09:42)
[2020-10-30] MEDS: AMINO ACIDS/PROTEIN HYDROLYS 30 ML LIQUID.PKT PO SCH ×2 (09:42→17:33)
[2020-10-30] MEDS: PANTOPRAZOLE 40 MG TABLET PO SCH (09:42)
[2020-10-30] MEDS: LOSARTAN POTASSIUM 50 MG TABLET PO SCH (09:43)
[2020-10-30] MEDS: COLLAGENASE CLOSTRIDIUM HIST. 30 GRAMS TUBE TP SCH (14:42)
[2020-10-30 15:46] LABS: POTASSIUM 5.1 mmol/L (3.5-5.1)
[2020-10-30 15:48] LABS: BLOOD UREA NITROGEN 35.3 mg/dL (7-18); CALCIUM 8.3 mg/dL (8.5-10.1)
[2020-10-30 15:51] LABS: CREATININE 1.3 mg/dL (0.55-1.3)
[2020-10-30 15:52] LABS: PHOSPHOROUS 3.4 mg/dL (2.5-4.9)
[2020-10-31] MEDS: AZTREONAM 1 GM in DEXTROSE 5%-WATER - 50 ML IVPB SCH ×3 (02:00→17:19)
[2020-10-31] MEDS: LINEZOLID 600 MG PREMIX BAG 600 MG/300 ML BAG IVPB SCH (06:50)
[2020-10-31 08:07] LABS: BASO % 1.2 % (0-2.0); EOS % 19.3 % (0-4.5); HEMATOCRIT 27.3 % (35.4-49); LYMPH % 31.8 % (8-40); MCH 24.6 pg (25.7-33.7); MCHC 32.9 g/dl (32.0-35.9); MEAN CELL VOLUME 74.8 fl (80-96); MEAN PLT VOLUME 7.1 fl (7.5-11.1); NEUT % 39.7 % (42.8-82.8); PLATELET COUNT 170 K/MM3 (134-434); RBC 3.65 M/mm3 (4.00-5.60); RDW 19.1 % (11.9-15.9); WHITE BLOOD COUNT 5.4 K/mm3 (4.0-10.0)
[2020-10-31 08:23] LABS: POTASSIUM 4.8 mmol/L (3.5-5.1)
[2020-10-31 08:25] LABS: CALCIUM 8.3 mg/dL (8.5-10.1)
[2020-10-31 08:26] LABS: ALBUMIN 2.3 g/dl (3.4-5.0); BLOOD UREA NITROGEN 36.4 mg/dL (7-18); MAGNESIUM 1.8 mg/dL (1.8-2.4)
[2020-10-31 08:28] LABS: CREATININE 1.3 mg/dL (0.55-1.3)
[2020-10-31 08:29] LABS: PHOSPHOROUS 3.4 mg/dL (2.5-4.9)
[2020-10-31 08:30] LABS: BILIRUBIN,TOTAL 0.4 mg/dL (0.2-1); TOT PROT 5.9 g/dl (6.4-8.2)
[2020-10-31] MEDS: MULTIVITAMINS (DAILY MVI) TABLET (FP) PO SCH (09:36)
[2020-10-31] MEDS: PANTOPRAZOLE 40 MG TABLET PO SCH (09:36)
[2020-10-31] MEDS: AMINO ACIDS/PROTEIN HYDROLYS 30 ML LIQUID.PKT PO SCH ×2 (09:36→17:18)
[2020-10-31] MEDS: LOSARTAN POTASSIUM 50 MG TABLET PO SCH (09:37)
[2020-10-31] MEDS ORDERED: BACITRACIN 15 GM TUBE TOPICAL OINTMENT TP SCH (10:00)
[2020-10-31] MEDS: SODIUM CHLORIDE 0.45% 1,000 ML IV SCH (15:41)
[2020-10-31] MEDS: COLLAGENASE CLOSTRIDIUM HIST. 30 GRAMS TUBE TP SCH (15:41)
[2020-11-01 09:58] LABS: POTASSIUM 4.6 mmol/L (3.5-5.1)
[2020-11-01 10:03] LABS: CALCIUM 8.6 mg/dL (8.5-10.1); MAGNESIUM 1.8 mg/dL (1.8-2.4)
[2020-11-01 10:05] LABS: CREATININE 1.2 mg/dL (0.55-1.3)
[2020-11-01] MEDS: AMINO ACIDS/PROTEIN HYDROLYS 30 ML LIQUID.PKT PO SCH ×2 (10:05→18:49)
[2020-11-01] MEDS: PANTOPRAZOLE 40 MG TABLET PO SCH (10:05)
[2020-11-01] MEDS: MULTIVITAMINS (DAILY MVI) TABLET (FP) PO SCH (10:05)
[2020-11-01] MEDS: LOSARTAN POTASSIUM 50 MG TABLET PO SCH (10:05)
[2020-11-01 10:06] LABS: PHOSPHOROUS 3.7 mg/dL (2.5-4.9)
[2020-11-01] MEDS: COLLAGENASE CLOSTRIDIUM HIST. 30 GRAMS TUBE TP SCH (10:06)
[2020-11-01 10:20] LABS: BLOOD UREA NITROGEN 37.9 mg/dL (7-18)
[2020-11-01] MEDS: SODIUM CHLORIDE 0.45% 1,000 ML IV SCH (18:49)
[2020-11-02] MEDS: AMINO ACIDS/PROTEIN HYDROLYS 30 ML LIQUID.PKT PO SCH (09:04)
[2020-11-02] MEDS: PANTOPRAZOLE 40 MG TABLET PO SCH (09:04)
[2020-11-02] MEDS: LOSARTAN POTASSIUM 50 MG TABLET PO SCH (09:04)
[2020-11-02] MEDS: MULTIVITAMINS (DAILY MVI) TABLET (FP) PO SCH (09:04)
[2020-11-02] MEDS: COLLAGENASE CLOSTRIDIUM HIST. 30 GRAMS TUBE TP SCH (09:05)
[2020-11-02 13:23] LABS: POTASSIUM 4.9 mmol/L (3.5-5.1)
[2020-11-02 13:24] LABS: CALCIUM 8.5 mg/dL (8.5-10.1)
[2020-11-02 13:25] LABS: BLOOD UREA NITROGEN 44.4 mg/dL (7-18); MAGNESIUM 1.9 mg/dL (1.8-2.4)
[2020-11-02 13:27] LABS: BASO % 1.2 % (0-2.0); EOS % 16.7 % (0-4.5); HEMATOCRIT 26.5 % (35.4-49); HEMOGLOBIN 8.5 GM/dL (11.7-16.9); LYMPH % 22.9 % (8-40); MCH 23.9 pg (25.7-33.7); MCHC 32.1 g/dl (32.0-35.9); MEAN CELL VOLUME 74.4 fl (80-96); MONO % 8.3 % (3.8-10.2); NEUT % 50.9 % (42.8-82.8); PLATELET COUNT 305 K/MM3 (134-434); RBC 3.56 M/mm3 (4.00-5.60); RDW 18.7 % (11.9-15.9)
[2020-11-02 13:29] LABS: PHOSPHOROUS 3.6 mg/dL (2.5-4.9)
[2020-11-02 13:30] LABS: WHITE BLOOD COUNT 9.7 K/mm3 (4.0-10.0)
[2020-11-03] MEDS: SODIUM CHLORIDE 0.45% 1,000 ML IV SCH (00:37)
[2020-11-03] MEDS: MULTIVITAMINS (DAILY MVI) TABLET (FP) PO SCH (10:06)
[2020-11-03] MEDS: AMINO ACIDS/PROTEIN HYDROLYS 30 ML LIQUID.PKT PO SCH (10:06)
[2020-11-03] MEDS: PANTOPRAZOLE 40 MG TABLET PO SCH (10:06)
[2020-11-03] MEDS: COLLAGENASE CLOSTRIDIUM HIST. 30 GRAMS TUBE TP SCH (10:06)
[2020-11-03] MEDS: LOSARTAN POTASSIUM 50 MG TABLET PO SCH (10:07)
[2020-11-03 14:23] LABS: POTASSIUM 4.8 mmol/L (3.5-5.1)
[2020-11-03 14:28] LABS: BLOOD UREA NITROGEN 43.9 mg/dL (7-18); CALCIUM 8.6 mg/dL (8.5-10.1)
[2020-11-03 14:31] LABS: CREATININE 1.1 mg/dL (0.55-1.3)
[2020-11-03 17:47] VITALS: BP 134/59; PULSE 63; TEMP 99.4
== END 2020-11-03 17:45 | disposition home health service (06) | DRG 388 ==
LOC: SUPCPDRO 18:35 → JER 18:35 → JERBED 22:35 → J5WEST-2 10-22 12:00
PROVIDERS: ADMIT Internal Medicine; ATTEND Internal Medicine
PROC: 0D9670Z Drainage of Stomach with Drainage Device, Via Natural or Artificial Opening (ICD-10-PCS; principal; 2020-10-22)
DX: K56.699 Other intestinal obstruction unspecified as to partial versus complete obstruction (principal); L89.153 Pressure ulcer of sacral region, stage 3; L89.313 Pressure ulcer of right buttock, stage 3; R53.2 Functional quadriplegia; N17.9 Acute kidney failure, unspecified; N39.0 Urinary tract infection, site not specified; Z16.12 Extended spectrum beta lactamase (ESBL) resistance; N31.9 Neuromuscular dysfunction of bladder, unspecified; Z93.3 Colostomy status; I10 Essential (primary) hypertension; Z93.6 Other artificial openings of urinary tract status; L89.322 Pressure ulcer of left buttock, stage 2; L89.100 Pressure ulcer of unspecified part of back, unstageable; R31.9 Hematuria, unspecified; L60.1 Onycholysis; E11.9 Type 2 diabetes mellitus without complications
CPT/HCPCS: 36415; 71045-TC-FY; 74018-TC-FY; 74019-TC-FY; 74021-TC-FY; 74176-TC; 80048; 80053; 81003; 82803; 83605; 83735; 84100; 84484; 85025; 85610; 85730; 86850; 86900; 86901; 87040; 87086; 87186; 93005; 93010; 99285-25; C9803; J0131; U0003

== ENCOUNTER 2021-07-18 10:53 | Inpatient (IN) | payer MEDICARE, OTHER ==
[2021-07-18 13:01] LABS: BASO % 1.1 % (0-2.0); EOS % 16.7 % (0-4.5); HEMATOCRIT 21.6 % (35.4-49); LYMPH % 25.6 % (8-40); MCHC 30.8 g/dl (32.0-35.9); MEAN CELL VOLUME 62.6 fl (80-96); MEAN PLT VOLUME 7.9 fl (7.5-11.1); MONO % 11.9 % (3.8-10.2); NEUT % 44.7 % (42.8-82.8); PLATELET COUNT 214 10^3/uL (134-434); RBC 3.45 M/mm3 (4.00-5.60); RDW 18.6 % (11.9-15.9); WHITE BLOOD COUNT 6.9 K/mm3 (4.0-10.0)
[2021-07-18 13:10] LABS: MCH 19.3 pg (25.7-33.7)
[2021-07-18 13:12] LABS: HEMOGLOBIN 6.7 GM/dL (11.7-16.9)
[2021-07-18 13:20] LABS: ALBUMIN 2.5 g/dl (3.4-5.0); CALCIUM 8.6 mg/dL (8.5-10.1)
[2021-07-18 13:21] LABS: BLOOD UREA NITROGEN 34.8 mg/dL (7-18)
[2021-07-18 13:24] LABS: CREATININE 1.5 mg/dL (0.55-1.3)
[2021-07-18 13:25] LABS: TOT PROT 7.3 g/dl (6.4-8.2)
[2021-07-18 13:28] LABS: BILIRUBIN,TOTAL 0.3 mg/dL (0.2-1)
[2021-07-18 14:48] LABS: ANISOCYTOSIS 1+; MACROCYTOSIS 0; OVALOCYTE 1+; PLATELET ESTIMATE NORMAL; TARGET CELLS 1+; TEAR DROP CELLS 1+
[2021-07-18 23:55] VITALS: BMI 18.4
[2021-07-19] MEDS ORDERED: DEXTROSE 5%-0.45% SALINE 1,000 ML IV SCH (00:15)
[2021-07-19 08:19] LABS: BASO % 1.1 % (0-2.0); EOS % 17.4 % (0-4.5); HEMATOCRIT 28.4 % (35.4-49); LYMPH % 23.8 % (8-40); MCH 21.7 pg (25.7-33.7); MCHC 31.7 g/dl (32.0-35.9); MEAN CELL VOLUME 68.6 fl (80-96); MEAN PLT VOLUME 6.1 fl (7.5-11.1); MONO % 7.5 % (3.8-10.2); NEUT % 50.2 % (42.8-82.8); PLATELET COUNT 202 10^3/uL (134-434); RBC 4.14 M/mm3 (4.00-5.60); WHITE BLOOD COUNT 7.4 K/mm3 (4.0-10.0)
[2021-07-19 08:45] LABS: ALBUMIN 2.4 g/dl (3.4-5.0); BLOOD UREA NITROGEN 31.5 mg/dL (7-18)
[2021-07-19 08:46] LABS: CALCIUM 8.5 mg/dL (8.5-10.1)
[2021-07-19 08:47] LABS: BILIRUBIN,TOTAL 0.6 mg/dL (0.2-1); TOT PROT 6.9 g/dl (6.4-8.2)
[2021-07-19 08:48] LABS: CREATININE 1.3 mg/dL (0.55-1.3)
[2021-07-19] MEDS: GABAPENTIN 100 MG CAPSULE PO SCH (09:05)
[2021-07-19] MEDS: LOSARTAN POTASSIUM 50 MG TABLET PO SCH (09:05)
[2021-07-19] MEDS ORDERED: amLODIPine BESYLATE 2.5 MG TABLET (FP) PO ONE ×2 (15:45→17:08)
[2021-07-20] MEDS: LOSARTAN POTASSIUM 50 MG TABLET PO SCH (09:50)
[2021-07-20] MEDS: PANTOPRAZOLE 40 MG TABLET PO SCH (09:50)
[2021-07-20] MEDS: GABAPENTIN 100 MG CAPSULE PO SCH (09:50)
[2021-07-20 12:06] LABS: CALCIUM 8.6 mg/dL (8.5-10.1)
[2021-07-20 12:07] LABS: ALBUMIN 2.6 g/dl (3.4-5.0)
[2021-07-20 12:10] LABS: CREATININE 1.3 mg/dL (0.55-1.3)
[2021-07-20 12:11] LABS: BILIRUBIN,TOTAL 0.4 mg/dL (0.2-1); TOT PROT 7.1 g/dl (6.4-8.2)
[2021-07-20 12:21] LABS: BASO % 0.9 % (0-2.0); HEMATOCRIT 30.2 % (35.4-49); HEMOGLOBIN 9.7 GM/dL (11.7-16.9); LYMPH % 19.7 % (8-40); MCH 21.9 pg (25.7-33.7); MCHC 32.1 g/dl (32.0-35.9); MEAN CELL VOLUME 68.3 fl (80-96); MEAN PLT VOLUME 7.9 fl (7.5-11.1); MONO % 6.6 % (3.8-10.2); NEUT % 57.8 % (42.8-82.8); PLATELET COUNT 207 10^3/uL (134-434); RBC 4.42 M/mm3 (4.00-5.60); RDW 26.5 % (11.9-15.9); WHITE BLOOD COUNT 7.5 K/mm3 (4.0-10.0)
[2021-07-20] MEDS ORDERED: IRON SUCROSE INJECTION 200 MG in SODIUM CHLORIDE 90 ML IVPB ONE (17:00)
[2021-07-20] MEDS: AMINO ACIDS/PROTEIN HYDROLYS 30 ML LIQUID.PKT PO SCH (17:25)
[2021-07-20] MEDS: POLYETHYLENE GLYCOL (HEALTHYLAX) 3350 17 GM PACKET PO SCH (21:48)
[2021-07-21] MEDS: AMINO ACIDS/PROTEIN HYDROLYS 30 ML LIQUID.PKT PO SCH ×2 (08:33→17:29)
[2021-07-21] MEDS: GABAPENTIN 100 MG CAPSULE PO SCH (09:07)
[2021-07-21] MEDS: LOSARTAN POTASSIUM 50 MG TABLET PO SCH (09:07)
[2021-07-21] MEDS: POLYETHYLENE GLYCOL (HEALTHYLAX) 3350 17 GM PACKET PO SCH ×2 (09:07→21:08)
[2021-07-21] MEDS: MULTIVITAMINS (DAILY MVI) TABLET (FP) PO SCH (09:07)
[2021-07-21] MEDS: PANTOPRAZOLE 40 MG TABLET PO SCH (09:07)
[2021-07-21] MEDS ORDERED: PEG 3350/NA SULF BICARB CL/KCL 4000 ML SOLN.RECON PO ONE (10:00)
[2021-07-21 10:48] LABS: BASO % 0.7 % (0-2.0); EOS % 14.4 % (0-4.5); HEMATOCRIT 27.2 % (35.4-49); HEMOGLOBIN 8.6 GM/dL (11.7-16.9); LYMPH % 20.4 % (8-40); MCHC 31.7 g/dl (32.0-35.9); MEAN CELL VOLUME 69.2 fl (80-96); MEAN PLT VOLUME 7.9 fl (7.5-11.1); MONO % 7.6 % (3.8-10.2); NEUT % 56.9 % (42.8-82.8); PLATELET COUNT 216 10^3/uL (134-434); RBC 3.93 M/mm3 (4.00-5.60); RDW 26.6 % (11.9-15.9); WHITE BLOOD COUNT 7.4 K/mm3 (4.0-10.0)
[2021-07-21] MEDS ORDERED: BISACODYL 5 MG TABLET.DR (FP) PO ONE (20:00)
[2021-07-22 08:29] LABS: HEMATOCRIT 27.6 % (35.4-49); HEMOGLOBIN 8.8 GM/dL (11.7-16.9); MCHC 31.9 g/dl (32.0-35.9); MEAN CELL VOLUME 68.8 fl (80-96); MEAN PLT VOLUME 7.9 fl (7.5-11.1); PLATELET COUNT 213 10^3/uL (134-434); RBC 4.01 M/mm3 (4.00-5.60); RDW 27.2 % (11.9-15.9); WHITE BLOOD COUNT 7.3 K/mm3 (4.0-10.0)
[2021-07-22] MEDS: AMINO ACIDS/PROTEIN HYDROLYS 30 ML LIQUID.PKT PO SCH ×3 (08:30→17:55)
[2021-07-22 09:34] LABS: ANISOCYTOSIS 3+; MACROCYTOSIS 0; PLATELET ESTIMATE NORMAL
[2021-07-22] MEDS: MULTIVITAMINS (DAILY MVI) TABLET (FP) PO SCH (09:46)
[2021-07-22] MEDS: PANTOPRAZOLE 40 MG TABLET PO SCH (09:47)
[2021-07-22] MEDS: LOSARTAN POTASSIUM 50 MG TABLET PO SCH (09:47)
[2021-07-22] MEDS: POLYETHYLENE GLYCOL (HEALTHYLAX) 3350 17 GM PACKET PO SCH ×2 (09:47→22:48)
[2021-07-22] MEDS: GABAPENTIN 100 MG CAPSULE PO SCH (09:47)
[2021-07-22 20:07] LABS: GLIADIN ANTIBODY IGA 4 units (0-19); GLIADIN ANTIBODY IGG 2 units (0-19); TRANSGLUTAMINASE IGG < 2 U/mL (0-5)
[2021-07-23 09:05] LABS: ALBUMIN 2.4 g/dl (3.4-5.0); BASO % 0.7 % (0-2.0); EOS % 19.9 % (0-4.5); HEMATOCRIT 28.3 % (35.4-49); HEMOGLOBIN 9.1 GM/dL (11.7-16.9); MCH 21.8 pg (25.7-33.7); MCHC 32.2 g/dl (32.0-35.9); MEAN CELL VOLUME 67.9 fl (80-96); MEAN PLT VOLUME 7.7 fl (7.5-11.1); MONO % 8.1 % (3.8-10.2); NEUT % 50.3 % (42.8-82.8); PLATELET COUNT 206 10^3/uL (134-434); RBC 4.17 M/mm3 (4.00-5.60); RDW 27.6 % (11.9-15.9); WHITE BLOOD COUNT 8.7 K/mm3 (4.0-10.0)
[2021-07-23 09:06] LABS: BLOOD UREA NITROGEN 38.3 mg/dL (7-18); CALCIUM 8.4 mg/dL (8.5-10.1)
[2021-07-23 09:09] LABS: CREATININE 1.2 mg/dL (0.55-1.3)
[2021-07-23 09:10] LABS: BILIRUBIN,TOTAL 0.3 mg/dL (0.2-1); TOT PROT 6.8 g/dl (6.4-8.2)
[2021-07-23] MEDS: POLYETHYLENE GLYCOL (HEALTHYLAX) 3350 17 GM PACKET PO SCH ×2 (10:17→21:03)
[2021-07-23] MEDS: LOSARTAN POTASSIUM 50 MG TABLET PO SCH (10:17)
[2021-07-23] MEDS: AMINO ACIDS/PROTEIN HYDROLYS 30 ML LIQUID.PKT PO SCH ×2 (10:17→17:56)
[2021-07-23] MEDS: MULTIVITAMINS (DAILY MVI) TABLET (FP) PO SCH (10:17)
[2021-07-23] MEDS: GABAPENTIN 100 MG CAPSULE PO SCH (10:17)
[2021-07-23] MEDS: PANTOPRAZOLE 40 MG TABLET PO SCH (10:17)
[2021-07-24] MEDS: GABAPENTIN 100 MG CAPSULE PO SCH (09:33)
[2021-07-24] MEDS: POLYETHYLENE GLYCOL (HEALTHYLAX) 3350 17 GM PACKET PO SCH ×2 (09:33→23:14)
[2021-07-24] MEDS: AMINO ACIDS/PROTEIN HYDROLYS 30 ML LIQUID.PKT PO SCH ×2 (09:33→17:07)
[2021-07-24] MEDS: MULTIVITAMINS (DAILY MVI) TABLET (FP) PO SCH (09:33)
[2021-07-24] MEDS: PANTOPRAZOLE 40 MG TABLET PO SCH (09:33)
[2021-07-24] MEDS: LOSARTAN POTASSIUM 50 MG TABLET PO SCH (09:33)
[2021-07-25 06:44] LABS: HEMATOCRIT 29.9 % (35.4-49); HEMOGLOBIN 9.5 GM/dL (11.7-16.9); MCH 22.2 pg (25.7-33.7); MCHC 31.7 g/dl (32.0-35.9); MEAN CELL VOLUME 69.9 fl (80-96); MEAN PLT VOLUME 8.1 fl (7.5-11.1); PLATELET COUNT 227 10^3/uL (134-434); RBC 4.28 M/mm3 (4.00-5.60); RDW 29.4 % (11.9-15.9); WHITE BLOOD COUNT 8.9 K/mm3 (4.0-10.0)
[2021-07-25 07:03] LABS: ALBUMIN 2.5 g/dl (3.4-5.0); BLOOD UREA NITROGEN 48.9 mg/dL (7-18); CALCIUM 8.4 mg/dL (8.5-10.1)
[2021-07-25 07:06] LABS: CREATININE 1.4 mg/dL (0.55-1.3)
[2021-07-25 07:08] LABS: BILIRUBIN,TOTAL 0.3 mg/dL (0.2-1); TOT PROT 6.7 g/dl (6.4-8.2)
[2021-07-25] MEDS: POLYETHYLENE GLYCOL (HEALTHYLAX) 3350 17 GM PACKET PO SCH ×2 (09:46→21:32)
[2021-07-25] MEDS: GABAPENTIN 100 MG CAPSULE PO SCH (09:46)
[2021-07-25] MEDS: AMINO ACIDS/PROTEIN HYDROLYS 30 ML LIQUID.PKT PO SCH ×2 (09:46→16:34)
[2021-07-25] MEDS: PANTOPRAZOLE 40 MG TABLET PO SCH (09:46)
[2021-07-25] MEDS: MULTIVITAMINS (DAILY MVI) TABLET (FP) PO SCH (09:46)
[2021-07-25] MEDS ORDERED: PT OWN MED DRAWER 7, Y5N ONE ×2 (10:26→14:18)
[2021-07-25] MEDS: LOSARTAN POTASSIUM 50 MG TABLET PO SCH (10:44)
[2021-07-25] MEDS ORDERED: ACETAMINOPHEN 325 MG TABLET (FP) PO PRN (15:37)
[2021-07-26 08:40] LABS: HEMATOCRIT 29.8 % (35.4-49); HEMOGLOBIN 9.4 GM/dL (11.7-16.9); MCH 22.1 pg (25.7-33.7); MCHC 31.6 g/dl (32.0-35.9); MEAN PLT VOLUME 8.1 fl (7.5-11.1); PLATELET COUNT 240 10^3/uL (134-434); RBC 4.26 M/mm3 (4.00-5.60); RDW 30.1 % (11.9-15.9); WHITE BLOOD COUNT 7.6 K/mm3 (4.0-10.0)
[2021-07-26 09:04] LABS: CALCIUM 8.3 mg/dL (8.5-10.1)
[2021-07-26 09:05] LABS: ALBUMIN 2.5 g/dl (3.4-5.0); BLOOD UREA NITROGEN 62.7 mg/dL (7-18)
[2021-07-26 09:08] LABS: CREATININE 1.6 mg/dL (0.55-1.3)
[2021-07-26 09:10] LABS: BILIRUBIN,TOTAL 0.3 mg/dL (0.2-1)
[2021-07-26] MEDS: MULTIVITAMINS (DAILY MVI) TABLET (FP) PO SCH (12:35)
[2021-07-26] MEDS: LOSARTAN POTASSIUM 50 MG TABLET PO SCH (12:35)
[2021-07-26] MEDS: GABAPENTIN 100 MG CAPSULE PO SCH (12:35)
[2021-07-26] MEDS: POLYETHYLENE GLYCOL (HEALTHYLAX) 3350 17 GM PACKET PO SCH ×2 (12:35→21:59)
[2021-07-26] MEDS: PANTOPRAZOLE 40 MG TABLET PO SCH (12:35)
[2021-07-26] MEDS: AMINO ACIDS/PROTEIN HYDROLYS 30 ML LIQUID.PKT PO SCH ×2 (12:36→18:58)
[2021-07-27] MEDS: MULTIVITAMINS (DAILY MVI) TABLET (FP) PO SCH (09:43)
[2021-07-27] MEDS: POLYETHYLENE GLYCOL (HEALTHYLAX) 3350 17 GM PACKET PO SCH ×2 (09:43→21:18)
[2021-07-27] MEDS: LOSARTAN POTASSIUM 50 MG TABLET PO SCH (09:43)
[2021-07-27] MEDS: GABAPENTIN 100 MG CAPSULE PO SCH (09:43)
[2021-07-27] MEDS: AMINO ACIDS/PROTEIN HYDROLYS 30 ML LIQUID.PKT PO SCH ×2 (09:43→19:09)
[2021-07-27] MEDS: PANTOPRAZOLE 40 MG TABLET PO SCH (09:43)
[2021-07-27] MEDS ORDERED: HYDROmorphone HCl 2 MG/ML VIAL IM ONE (09:49)
[2021-07-27] MEDS ORDERED: DEXMEDETOMIDINE HCL 200 MCG/2 ML IVPB ONE (10:14)
[2021-07-27] MEDS ORDERED: CLINDAMYCIN PHOSPHATE 900 MG/6 ML VIAL IVPB ONE (10:16)
[2021-07-27] MEDS ORDERED: KETAMINE HCL 200 MG/20 ML VIAL ONE (10:37)
[2021-07-27] MEDS: ACETAMINOPHEN 325 MG TABLET (FP) PO PRN (21:17)
[2021-07-27] MEDS: DOCUSATE SODIUM 100 MG CAPSULE (FP) PO SCH (21:17)
[2021-07-28] MEDS: ACETAMINOPHEN 325 MG TABLET (FP) PO PRN (06:26)
[2021-07-28 09:05] LABS: BASO % 0.3 % (0-2.0); EOS % 0.5 % (0-4.5); HEMATOCRIT 26.8 % (35.4-49); HEMOGLOBIN 8.5 GM/dL (11.7-16.9); LYMPH % 4.9 % (8-40); MCH 22.3 pg (25.7-33.7); MCHC 31.9 g/dl (32.0-35.9); MEAN CELL VOLUME 69.8 fl (80-96); MEAN PLT VOLUME 6.9 fl (7.5-11.1); MONO % 5.5 % (3.8-10.2); NEUT % 88.8 % (42.8-82.8); PLATELET COUNT 236 10^3/uL (134-434); RBC 3.84 M/mm3 (4.00-5.60); RDW 30.9 % (11.9-15.9); WHITE BLOOD COUNT 16.4 K/mm3 (4.0-10.0)
[2021-07-28 09:35] LABS: BILIRUBIN,TOTAL 0.4 mg/dL (0.2-1)
[2021-07-28 09:36] LABS: CALCIUM 8.2 mg/dL (8.5-10.1)
[2021-07-28 09:37] LABS: ALBUMIN 2.3 g/dl (3.4-5.0); BLOOD UREA NITROGEN 67.2 mg/dL (7-18); TOT PROT 6.5 g/dl (6.4-8.2)
[2021-07-28] MEDS: POLYETHYLENE GLYCOL (HEALTHYLAX) 3350 17 GM PACKET PO SCH ×2 (09:37→21:37)
[2021-07-28] MEDS: AMINO ACIDS/PROTEIN HYDROLYS 30 ML LIQUID.PKT PO SCH ×2 (09:37→17:58)
[2021-07-28] MEDS: PANTOPRAZOLE 40 MG TABLET PO SCH (09:38)
[2021-07-28] MEDS: LOSARTAN POTASSIUM 50 MG TABLET PO SCH (09:38)
[2021-07-28] MEDS: GABAPENTIN 100 MG CAPSULE PO SCH (09:38)
[2021-07-28] MEDS: MULTIVITAMINS (DAILY MVI) TABLET (FP) PO SCH (09:38)
[2021-07-28 09:40] LABS: CREATININE 2.3 mg/dL (0.55-1.3)
[2021-07-28] MEDS ORDERED: MEROPENEM 1 GM VIAL (RESTRICTED TO ID) IVPB ONE ×2 (10:15→21:05)
[2021-07-28] MEDS ORDERED: DEXTROSE 5%-WATER 100 ML IVPB ONE ×2 (10:15→21:05)
[2021-07-28] MEDS: MEROPENEM 1 GM in DEXTROSE 5%-WATER 100 ML IVPB SCH ×2 (10:35→21:36)
[2021-07-28] MEDS ORDERED: IBUPROFEN 200 MG TABLET PO ONE (11:03)
[2021-07-28] MEDS ORDERED: MAGNESIUM OXIDE 400 MG TABLET (FP) PO ONE (15:21)
[2021-07-28] MEDS ORDERED: PT OWN MED DRAWER 7, Y5N ONE (15:44)
[2021-07-28] MEDS ORDERED: MAG HYDROX/AL HYDROX/SIMETH 30 ML UNIT-DOSE CUP PO ONE (16:45)
[2021-07-28] MEDS: DEXTROSE 5%-0.45% SALINE 1,000 ML IV SCH (21:36)
[2021-07-28] MEDS: DOCUSATE SODIUM 100 MG CAPSULE (FP) PO SCH (21:37)
[2021-07-29 08:36] LABS: HEMOGLOBIN 8.3 GM/dL (11.7-16.9); MCH 22.3 pg (25.7-33.7); MCHC 31.9 g/dl (32.0-35.9); PLATELET COUNT 249 10^3/uL (134-434); RBC 3.71 M/mm3 (4.00-5.60); RDW 30.6 % (11.9-15.9); WHITE BLOOD COUNT 21.6 K/mm3 (4.0-10.0)
[2021-07-29 08:51] LABS: ADD RBC MORPHOLOGY YES
[2021-07-29 09:03] LABS: CALCIUM 7.6 mg/dL (8.5-10.1)
[2021-07-29 09:05] LABS: ALBUMIN 2.1 g/dl (3.4-5.0)
[2021-07-29 09:08] LABS: BILIRUBIN,TOTAL 0.4 mg/dL (0.2-1); CREATININE 2.4 mg/dL (0.55-1.3); TOT PROT 6.2 g/dl (6.4-8.2)
[2021-07-29] MEDS ORDERED: MEROPENEM 1 GM VIAL (RESTRICTED TO ID) IVPB ONE ×2 (09:22→21:13)
[2021-07-29] MEDS ORDERED: DEXTROSE 5%-WATER 100 ML IVPB ONE ×2 (09:23→21:13)
[2021-07-29] MEDS: AMINO ACIDS/PROTEIN HYDROLYS 30 ML LIQUID.PKT PO SCH ×2 (09:34→17:17)
[2021-07-29] MEDS: MULTIVITAMINS (DAILY MVI) TABLET (FP) PO SCH (09:34)
[2021-07-29] MEDS: PANTOPRAZOLE 40 MG TABLET PO SCH (09:34)
[2021-07-29] MEDS: GABAPENTIN 100 MG CAPSULE PO SCH (09:34)
[2021-07-29] MEDS: LOSARTAN POTASSIUM 50 MG TABLET PO SCH (09:34)
[2021-07-29] MEDS: POLYETHYLENE GLYCOL (HEALTHYLAX) 3350 17 GM PACKET PO SCH ×2 (09:34→21:15)
[2021-07-29] MEDS: MEROPENEM 1 GM in DEXTROSE 5%-WATER 100 ML IVPB SCH ×2 (09:36→21:14)
[2021-07-29 11:28] LABS: ANISOCYTOSIS 1+; MACROCYTOSIS 0; OVALOCYTE 1+; PLATELET ESTIMATE NORMAL; TARGET CELLS 1+
[2021-07-29] MEDS: DEXTROSE 5%-0.45% SALINE 1,000 ML IV SCH ×2 (16:26→23:08)
[2021-07-29] MEDS: DOCUSATE SODIUM 100 MG CAPSULE (FP) PO SCH (21:15)
[2021-07-29] MEDS ORDERED: ACETAMINOPHEN 1000 MG/100 ML VIAL IVPB PRN (21:48)
[2021-07-30] MEDS ORDERED: MEROPENEM 1 GM VIAL (RESTRICTED TO ID) IVPB ONE ×2 (09:29→20:32)
[2021-07-30] MEDS ORDERED: DEXTROSE 5%-WATER 100 ML IVPB ONE ×2 (09:29→20:32)
[2021-07-30] MEDS: MULTIVITAMINS (DAILY MVI) TABLET (FP) PO SCH (10:43)
[2021-07-30] MEDS: GABAPENTIN 100 MG CAPSULE PO SCH (10:43)
[2021-07-30] MEDS: PANTOPRAZOLE 40 MG TABLET PO SCH (10:43)
[2021-07-30] MEDS: MEROPENEM 1 GM in DEXTROSE 5%-WATER 100 ML IVPB SCH ×2 (10:44→20:59)
[2021-07-30] MEDS: POLYETHYLENE GLYCOL (HEALTHYLAX) 3350 17 GM PACKET PO SCH ×2 (10:44→20:59)
[2021-07-30] MEDS: AMINO ACIDS/PROTEIN HYDROLYS 30 ML LIQUID.PKT PO SCH ×2 (10:44→18:33)
[2021-07-30] MEDS: LACTATED RINGERS SOLUTION 1,000 ML/1,000 ML INFUS.BAG IV SCH ×2 (19:35→20:59)
[2021-07-30] MEDS: DOCUSATE SODIUM 100 MG CAPSULE (FP) PO SCH (21:00)
[2021-07-30] MEDS ORDERED: ACETAMINOPHEN 1000 MG/100 ML VIAL IVPB PRN (23:46)
[2021-07-31 02:27] LABS: EPI CELLS 2 /uL (0-25.1); HYALINE CASTS 2 /uL (0-3.1); URINE APPEARANCE CLOUDY; URINE BACTERIA 21 /uL (0-1359); URINE BILIRUBIN NEGATIVE (NEGATIVE); URINE COLOR RED; URINE GLUCOSE (UA) NEGATIVE (NEGATIVE); URINE KETONE NEGATIVE (NEGATIVE); URINE LEUK ESTERASE 3+ (NEGATIVE); URINE NITRITE NEGATIVE (NEGATIVE); URINE PROTEIN 2+ (NEGATIVE); URINE UROBILINOGEN 0.2 mg/dL (0.2-1.0); URINE WBC 748 /uL (0-25.8)
[2021-07-31 03:16] LABS: URINE RBC 1829 /uL (0-23.9)
[2021-07-31 08:27] LABS: BASO % 0.8 % (0-2.0); HEMATOCRIT 28.4 % (35.4-49); HEMOGLOBIN 9.1 GM/dL (11.7-16.9); LYMPH % 17.2 % (8-40); MCH 22.6 pg (25.7-33.7); MCHC 31.9 g/dl (32.0-35.9); MEAN CELL VOLUME 70.8 fl (80-96); MONO % 12.3 % (3.8-10.2); NEUT % 51.7 % (42.8-82.8); PLATELET COUNT 340 10^3/uL (134-434); RBC 4.02 M/mm3 (4.00-5.60); RDW 30.1 % (11.9-15.9); WHITE BLOOD COUNT 6.2 K/mm3 (4.0-10.0)
[2021-07-31 08:39] LABS: ALBUMIN 2.1 g/dl (3.4-5.0); CALCIUM 8.2 mg/dL (8.5-10.1)
[2021-07-31 08:40] LABS: BLOOD UREA NITROGEN 62.9 mg/dL (7-18); MAGNESIUM 2.4 mg/dL (1.8-2.4)
[2021-07-31 08:43] LABS: CREATININE 2.3 mg/dL (0.55-1.3); PHOSPHOROUS 3.8 mg/dL (2.5-4.9)
[2021-07-31 08:44] LABS: BILIRUBIN,TOTAL 0.4 mg/dL (0.2-1); TOT PROT 6.2 g/dl (6.4-8.2)
[2021-07-31] MEDS ORDERED: MEROPENEM 1 GM VIAL (RESTRICTED TO ID) IVPB ONE ×2 (10:50→21:53)
[2021-07-31] MEDS ORDERED: PT OWN MED DRAWER 7, Y5N ONE (10:50)
[2021-07-31] MEDS ORDERED: DEXTROSE 5%-WATER 100 ML IVPB ONE ×2 (10:50→21:53)
[2021-07-31] MEDS: LACTATED RINGERS SOLUTION 1,000 ML/1,000 ML INFUS.BAG IV SCH (10:53)
[2021-07-31] MEDS: AMINO ACIDS/PROTEIN HYDROLYS 30 ML LIQUID.PKT PO SCH ×2 (10:53→17:44)
[2021-07-31] MEDS: MULTIVITAMINS (DAILY MVI) TABLET (FP) PO SCH (10:53)
[2021-07-31] MEDS: GABAPENTIN 100 MG CAPSULE PO SCH (10:53)
[2021-07-31] MEDS: PANTOPRAZOLE 40 MG TABLET PO SCH (10:53)
[2021-07-31] MEDS: POLYETHYLENE GLYCOL (HEALTHYLAX) 3350 17 GM PACKET PO SCH ×2 (10:53→21:57)
[2021-07-31] MEDS: MEROPENEM 1 GM in DEXTROSE 5%-WATER 100 ML IVPB SCH ×2 (10:53→21:54)
[2021-07-31] MEDS: MINERAL OIL/PET HY-PHL TOPICAL OINTMENT 454 GM JAR TP SCH ×2 (11:26→21:56)
[2021-07-31] MEDS: COLLAGENASE CLOSTRIDIUM HIST. 30 GRAMS TUBE TP SCH (11:26)
[2021-07-31] MEDS ORDERED: SODIUM CHLORIDE 1,000 ML IV SCH (17:30)
[2021-07-31] MEDS: HEPARIN NA (PORCINE) 5,000 UNITS/ML 1ML VIAL SQ SCH (21:57)
[2021-07-31] MEDS: DOCUSATE SODIUM 100 MG CAPSULE (FP) PO SCH (21:57)
[2021-08-01 07:58] LABS: BASO % 1.1 % (0-2.0); EOS % 25.9 % (0-4.5); HEMATOCRIT 27.8 % (35.4-49); HEMOGLOBIN 8.9 GM/dL (11.7-16.9); LYMPH % 22.6 % (8-40); MCH 22.5 pg (25.7-33.7); MEAN CELL VOLUME 70.2 fl (80-96); MEAN PLT VOLUME 6.6 fl (7.5-11.1); NEUT % 38.4 % (42.8-82.8); PLATELET COUNT 353 10^3/uL (134-434); RBC 3.96 M/mm3 (4.00-5.60); RDW 29.2 % (11.9-15.9)
[2021-08-01 08:30] LABS: BILIRUBIN,TOTAL 0.2 mg/dL (0.2-1); BLOOD UREA NITROGEN 58.1 mg/dL (7-18)
[2021-08-01 08:31] LABS: CREATININE 1.9 mg/dL (0.55-1.3); TOT PROT 6.1 g/dl (6.4-8.2)
[2021-08-01 08:32] LABS: PHOSPHOROUS 3.7 mg/dL (2.5-4.9)
[2021-08-01 08:34] LABS: CALCIUM 8.1 mg/dL (8.5-10.1)
[2021-08-01 08:35] LABS: MAGNESIUM 2.4 mg/dL (1.8-2.4)
[2021-08-01] MEDS: AMINO ACIDS/PROTEIN HYDROLYS 30 ML LIQUID.PKT PO SCH ×2 (09:03→17:33)
[2021-08-01 09:36] LABS: ANISOCYTOSIS 3+; MACROCYTOSIS 0; PLATELET ESTIMATE NORMAL; TEAR DROP CELLS 1+
[2021-08-01] MEDS ORDERED: DEXTROSE 5%-WATER 100 ML IVPB ONE ×2 (11:04→21:19)
[2021-08-01] MEDS ORDERED: MEROPENEM 1 GM VIAL (RESTRICTED TO ID) IVPB ONE ×2 (11:04→21:19)
[2021-08-01] MEDS: GABAPENTIN 100 MG CAPSULE PO SCH (11:08)
[2021-08-01] MEDS: MULTIVITAMINS (DAILY MVI) TABLET (FP) PO SCH (11:08)
[2021-08-01] MEDS: PANTOPRAZOLE 40 MG TABLET PO SCH (11:08)
[2021-08-01] MEDS: LOSARTAN POTASSIUM 50 MG TABLET PO SCH (11:08)
[2021-08-01] MEDS: MINERAL OIL/PET HY-PHL TOPICAL OINTMENT 454 GM JAR TP SCH ×2 (11:09→21:36)
[2021-08-01] MEDS: MEROPENEM 1 GM in DEXTROSE 5%-WATER 100 ML IVPB SCH ×2 (11:09→21:37)
[2021-08-01] MEDS: COLLAGENASE CLOSTRIDIUM HIST. 30 GRAMS TUBE TP SCH (11:09)
[2021-08-01] MEDS: HEPARIN NA (PORCINE) 5,000 UNITS/ML 1ML VIAL SQ SCH ×2 (11:09→21:37)
[2021-08-01] MEDS: POLYETHYLENE GLYCOL (HEALTHYLAX) 3350 17 GM PACKET PO SCH ×2 (11:09→21:37)
[2021-08-01] MEDS: DOCUSATE SODIUM 100 MG CAPSULE (FP) PO SCH (21:37)
[2021-08-02] MEDS: ACETAMINOPHEN 500 MG TABLET (FP) PO PRN (06:27)
[2021-08-02 07:49] LABS: BASO % 0.9 % (0-2.0); EOS % 22.3 % (0-4.5); HEMATOCRIT 26.4 % (35.4-49); HEMOGLOBIN 8.5 GM/dL (11.7-16.9); LYMPH % 21.5 % (8-40); MCH 22.4 pg (25.7-33.7); MCHC 32.2 g/dl (32.0-35.9); MEAN CELL VOLUME 69.6 fl (80-96); MEAN PLT VOLUME 6.2 fl (7.5-11.1); MONO % 12.1 % (3.8-10.2); NEUT % 43.2 % (42.8-82.8); PLATELET COUNT 349 10^3/uL (134-434); RBC 3.79 M/mm3 (4.00-5.60); RDW 29.1 % (11.9-15.9)
[2021-08-02 08:01] LABS: ALBUMIN 2.1 g/dl (3.4-5.0); BLOOD UREA NITROGEN 53.1 mg/dL (7-18); CALCIUM 8.2 mg/dL (8.5-10.1); MAGNESIUM 2.4 mg/dL (1.8-2.4)
[2021-08-02 08:05] LABS: CREATININE 1.8 mg/dL (0.55-1.3)
[2021-08-02 08:06] LABS: BILIRUBIN,TOTAL 0.2 mg/dL (0.2-1); TOT PROT 6.1 g/dl (6.4-8.2)
[2021-08-02 10:01] LABS: ANISOCYTOSIS 2+; MACROCYTOSIS 0; OVALOCYTE 1+; PLATELET ESTIMATE NORMAL; TARGET CELLS 1+; TEAR DROP CELLS 1+
[2021-08-02] MEDS ORDERED: DEXTROSE 5%-WATER 100 ML IVPB ONE ×2 (10:06→21:20)
[2021-08-02] MEDS ORDERED: MEROPENEM 1 GM VIAL (RESTRICTED TO ID) IVPB ONE ×2 (10:06→21:19)
[2021-08-02] MEDS: POLYETHYLENE GLYCOL (HEALTHYLAX) 3350 17 GM PACKET PO SCH ×2 (10:10→21:26)
[2021-08-02] MEDS: MEROPENEM 1 GM in DEXTROSE 5%-WATER 100 ML IVPB SCH ×2 (10:10→21:27)
[2021-08-02] MEDS: MULTIVITAMINS (DAILY MVI) TABLET (FP) PO SCH (10:11)
[2021-08-02] MEDS: GABAPENTIN 100 MG CAPSULE PO SCH (10:11)
[2021-08-02] MEDS: HEPARIN NA (PORCINE) 5,000 UNITS/ML 1ML VIAL SQ SCH ×2 (10:11→21:26)
[2021-08-02] MEDS: PANTOPRAZOLE 40 MG TABLET PO SCH (10:11)
[2021-08-02] MEDS: AMINO ACIDS/PROTEIN HYDROLYS 30 ML LIQUID.PKT PO SCH ×2 (10:11→17:43)
[2021-08-02] MEDS: LOSARTAN POTASSIUM 50 MG TABLET PO SCH (10:11)
[2021-08-02] MEDS: COLLAGENASE CLOSTRIDIUM HIST. 30 GRAMS TUBE TP SCH (16:22)
[2021-08-02] MEDS: MINERAL OIL/PET HY-PHL TOPICAL OINTMENT 454 GM JAR TP SCH ×2 (16:22→21:35)
[2021-08-02] MEDS: DOCUSATE SODIUM 100 MG CAPSULE (FP) PO SCH (21:26)
[2021-08-03 09:26] LABS: HEMATOCRIT 27.8 % (35.4-49); HEMOGLOBIN 9.1 GM/dL (11.7-16.9); MCH 22.5 pg (25.7-33.7); MCHC 32.5 g/dl (32.0-35.9); MEAN CELL VOLUME 69.2 fl (80-96); MEAN PLT VOLUME 6.3 fl (7.5-11.1); PLATELET COUNT 377 10^3/uL (134-434); RBC 4.02 M/mm3 (4.00-5.60); RDW 28.6 % (11.9-15.9)
[2021-08-03] MEDS ORDERED: DEXTROSE 5%-WATER 100 ML IVPB ONE ×2 (09:54→20:44)
[2021-08-03] MEDS ORDERED: MEROPENEM 1 GM VIAL (RESTRICTED TO ID) IVPB ONE ×2 (09:54→20:44)
[2021-08-03] MEDS: PANTOPRAZOLE 40 MG TABLET PO SCH (10:00)
[2021-08-03] MEDS: amLODIPine BESYLATE 10 MG TABLET (FP) PO SCH (10:00)
[2021-08-03] MEDS: AMINO ACIDS/PROTEIN HYDROLYS 30 ML LIQUID.PKT PO SCH ×2 (10:00→17:39)
[2021-08-03] MEDS: GABAPENTIN 100 MG CAPSULE PO SCH (10:00)
[2021-08-03] MEDS: MULTIVITAMINS (DAILY MVI) TABLET (FP) PO SCH (10:00)
[2021-08-03] MEDS: POLYETHYLENE GLYCOL (HEALTHYLAX) 3350 17 GM PACKET PO SCH ×2 (10:01→21:03)
[2021-08-03] MEDS: MEROPENEM 1 GM in DEXTROSE 5%-WATER 100 ML IVPB SCH ×2 (10:01→21:02)
[2021-08-03] MEDS: HEPARIN NA (PORCINE) 5,000 UNITS/ML 1ML VIAL SQ SCH ×2 (10:01→21:04)
[2021-08-03] MEDS: MINERAL OIL/PET HY-PHL TOPICAL OINTMENT 454 GM JAR TP SCH ×2 (10:08→21:04)
[2021-08-03 10:39] LABS: CALCIUM 8.5 mg/dL (8.5-10.1)
[2021-08-03 10:40] LABS: BLOOD UREA NITROGEN 51.9 mg/dL (7-18)
[2021-08-03 10:43] LABS: CREATININE 1.7 mg/dL (0.55-1.3)
[2021-08-03] MEDS: COLLAGENASE CLOSTRIDIUM HIST. 30 GRAMS TUBE TP SCH (12:13)
[2021-08-03] MEDS: DOCUSATE SODIUM 100 MG CAPSULE (FP) PO SCH (21:03)
[2021-08-03] MEDS: ACETAMINOPHEN 500 MG TABLET (FP) PO PRN (21:15)
[2021-08-04] MEDS ORDERED: MEROPENEM 1 GM VIAL (RESTRICTED TO ID) IVPB ONE (09:03)
[2021-08-04] MEDS ORDERED: DEXTROSE 5%-WATER 100 ML IVPB ONE (09:04)
[2021-08-04] MEDS: amLODIPine BESYLATE 10 MG TABLET (FP) PO SCH (09:11)
[2021-08-04] MEDS: HEPARIN NA (PORCINE) 5,000 UNITS/ML 1ML VIAL SQ SCH ×2 (09:11→21:38)
[2021-08-04] MEDS: GABAPENTIN 100 MG CAPSULE PO SCH (09:11)
[2021-08-04] MEDS: MULTIVITAMINS (DAILY MVI) TABLET (FP) PO SCH (09:11)
[2021-08-04] MEDS: POLYETHYLENE GLYCOL (HEALTHYLAX) 3350 17 GM PACKET PO SCH ×2 (09:11→21:38)
[2021-08-04] MEDS: PANTOPRAZOLE 40 MG TABLET PO SCH (09:11)
[2021-08-04] MEDS: COLLAGENASE CLOSTRIDIUM HIST. 30 GRAMS TUBE TP SCH (09:12)
[2021-08-04] MEDS: MINERAL OIL/PET HY-PHL TOPICAL OINTMENT 454 GM JAR TP SCH ×2 (09:12→21:52)
[2021-08-04] MEDS: AMINO ACIDS/PROTEIN HYDROLYS 30 ML LIQUID.PKT PO SCH ×2 (09:12→16:37)
[2021-08-04] MEDS: MEROPENEM 1 GM in DEXTROSE 5%-WATER 100 ML IVPB SCH (16:46)
[2021-08-04] MEDS: DOCUSATE SODIUM 100 MG CAPSULE (FP) PO SCH (21:38)
[2021-08-05] MEDS ORDERED: DEXTROSE 5%-WATER 100 ML IVPB ONE ×2 (05:40→16:27)
[2021-08-05] MEDS ORDERED: MEROPENEM 1 GM VIAL (RESTRICTED TO ID) IVPB ONE ×2 (05:40→16:27)
[2021-08-05] MEDS: MEROPENEM 1 GM in DEXTROSE 5%-WATER 100 ML IVPB SCH ×2 (05:45→16:57)
[2021-08-05 06:49] LABS: EOS % 20.4 % (0-4.5); HEMATOCRIT 25.3 % (35.4-49); HEMOGLOBIN 8.2 GM/dL (11.7-16.9); LYMPH % 20.9 % (8-40); MCH 22.6 pg (25.7-33.7); MCHC 32.6 g/dl (32.0-35.9); MEAN CELL VOLUME 69.3 fl (80-96); MEAN PLT VOLUME 6.2 fl (7.5-11.1); MONO % 7.7 % (3.8-10.2); PLATELET COUNT 482 10^3/uL (134-434); RBC 3.66 M/mm3 (4.00-5.60); RDW 29.4 % (11.9-15.9); WHITE BLOOD COUNT 9.4 K/mm3 (4.0-10.0)
[2021-08-05 07:11] LABS: ALBUMIN 2.1 g/dl (3.4-5.0); BLOOD UREA NITROGEN 65.1 mg/dL (7-18); CALCIUM 8.3 mg/dL (8.5-10.1)
[2021-08-05 07:14] LABS: CREATININE 1.8 mg/dL (0.55-1.3)
[2021-08-05 07:15] LABS: BILIRUBIN,TOTAL 0.4 mg/dL (0.2-1); TOT PROT 6.4 g/dl (6.4-8.2)
[2021-08-05] MEDS: MULTIVITAMINS (DAILY MVI) TABLET (FP) PO SCH (09:30)
[2021-08-05] MEDS: POLYETHYLENE GLYCOL (HEALTHYLAX) 3350 17 GM PACKET PO SCH ×2 (09:30→21:18)
[2021-08-05] MEDS: PANTOPRAZOLE 40 MG TABLET PO SCH (09:30)
[2021-08-05] MEDS: HEPARIN NA (PORCINE) 5,000 UNITS/ML 1ML VIAL SQ SCH ×2 (09:30→21:18)
[2021-08-05] MEDS: amLODIPine BESYLATE 10 MG TABLET (FP) PO SCH (09:30)
[2021-08-05] MEDS: GABAPENTIN 100 MG CAPSULE PO SCH (09:30)
[2021-08-05] MEDS: MINERAL OIL/PET HY-PHL TOPICAL OINTMENT 454 GM JAR TP SCH ×2 (09:30→21:18)
[2021-08-05] MEDS: AMINO ACIDS/PROTEIN HYDROLYS 30 ML LIQUID.PKT PO SCH ×2 (09:30→16:57)
[2021-08-05] MEDS: COLLAGENASE CLOSTRIDIUM HIST. 30 GRAMS TUBE TP SCH (09:31)
[2021-08-05 11:52] LABS: ANISOCYTOSIS 0; MACROCYTOSIS 0; OVALOCYTE 1+; PLATELET ESTIMATE INCREASED
[2021-08-05] MEDS ORDERED: IRON SUCROSE INJECTION 100 MG in SODIUM CHLORIDE 95 ML IVPB ONE (17:15)
[2021-08-05] MEDS: ACETAMINOPHEN 500 MG TABLET (FP) PO PRN (17:57)
[2021-08-05] MEDS: DOCUSATE SODIUM 100 MG CAPSULE (FP) PO SCH (21:18)
[2021-08-06] MEDS ORDERED: DEXTROSE 5%-WATER 100 ML IVPB ONE (05:08)
[2021-08-06] MEDS ORDERED: MEROPENEM 1 GM VIAL (RESTRICTED TO ID) IVPB ONE (05:08)
[2021-08-06] MEDS: MEROPENEM 1 GM in DEXTROSE 5%-WATER 100 ML IVPB SCH (05:11)
[2021-08-06 08:36] LABS: BASO % 0.8 % (0-2.0); EOS % 21.8 % (0-4.5); HEMOGLOBIN 9.3 GM/dL (11.7-16.9); LYMPH % 20.9 % (8-40); MCH 22.3 pg (25.7-33.7); MCHC 32.1 g/dl (32.0-35.9); MEAN CELL VOLUME 69.5 fl (80-96); MEAN PLT VOLUME 6.3 fl (7.5-11.1); MONO % 6.9 % (3.8-10.2); NEUT % 49.6 % (42.8-82.8); PLATELET COUNT 490 10^3/uL (134-434); RBC 4.17 M/mm3 (4.00-5.60); RDW 30.2 % (11.9-15.9); WHITE BLOOD COUNT 8.1 K/mm3 (4.0-10.0)
[2021-08-06 08:50] LABS: BLOOD UREA NITROGEN 64.6 mg/dL (7-18); CALCIUM 8.7 mg/dL (8.5-10.1)
[2021-08-06 08:51] LABS: ALBUMIN 2.4 g/dl (3.4-5.0)
[2021-08-06 08:53] LABS: CREATININE 1.9 mg/dL (0.55-1.3)
[2021-08-06 08:55] LABS: BILIRUBIN,TOTAL 0.2 mg/dL (0.2-1)
[2021-08-06] MEDS: POLYETHYLENE GLYCOL (HEALTHYLAX) 3350 17 GM PACKET PO SCH ×2 (11:09→21:54)
[2021-08-06] MEDS: amLODIPine BESYLATE 10 MG TABLET (FP) PO SCH (11:09)
[2021-08-06] MEDS: GABAPENTIN 100 MG CAPSULE PO SCH (11:09)
[2021-08-06] MEDS: PANTOPRAZOLE 40 MG TABLET PO SCH (11:09)
[2021-08-06] MEDS: AMINO ACIDS/PROTEIN HYDROLYS 30 ML LIQUID.PKT PO SCH ×2 (11:09→17:48)
[2021-08-06] MEDS: HEPARIN NA (PORCINE) 5,000 UNITS/ML 1ML VIAL SQ SCH ×2 (11:09→21:52)
[2021-08-06] MEDS: COLLAGENASE CLOSTRIDIUM HIST. 30 GRAMS TUBE TP SCH (11:10)
[2021-08-06] MEDS: MULTIVITAMINS (DAILY MVI) TABLET (FP) PO SCH (11:10)
[2021-08-06] MEDS: MINERAL OIL/PET HY-PHL TOPICAL OINTMENT 454 GM JAR TP SCH ×2 (11:10→21:54)
[2021-08-06 11:45] LABS: ANISOCYTOSIS 0; MACROCYTOSIS 0; PLATELET ESTIMATE INCREASED
[2021-08-06] MEDS: DOCUSATE SODIUM 100 MG CAPSULE (FP) PO SCH (21:52)
[2021-08-07] MEDS: AMINO ACIDS/PROTEIN HYDROLYS 30 ML LIQUID.PKT PO SCH ×2 (10:54→17:54)
[2021-08-07] MEDS: GABAPENTIN 100 MG CAPSULE PO SCH (10:55)
[2021-08-07] MEDS: HEPARIN NA (PORCINE) 5,000 UNITS/ML 1ML VIAL SQ SCH (10:55)
[2021-08-07] MEDS: MINERAL OIL/PET HY-PHL TOPICAL OINTMENT 454 GM JAR TP SCH ×2 (10:55→22:17)
[2021-08-07] MEDS: amLODIPine BESYLATE 10 MG TABLET (FP) PO SCH (10:55)
[2021-08-07] MEDS: PANTOPRAZOLE 40 MG TABLET PO SCH (10:55)
[2021-08-07] MEDS: POLYETHYLENE GLYCOL (HEALTHYLAX) 3350 17 GM PACKET PO SCH ×2 (10:55→22:15)
[2021-08-07] MEDS: COLLAGENASE CLOSTRIDIUM HIST. 30 GRAMS TUBE TP SCH (10:55)
[2021-08-07] MEDS: MULTIVITAMINS (DAILY MVI) TABLET (FP) PO SCH (10:55)
[2021-08-07] MEDS: DOCUSATE SODIUM 100 MG CAPSULE (FP) PO SCH (22:17)
[2021-08-08 08:34] LABS: CALCIUM 8.4 mg/dL (8.5-10.1)
[2021-08-08 08:35] LABS: ALBUMIN 2.3 g/dl (3.4-5.0); BLOOD UREA NITROGEN 70.6 mg/dL (7-18)
[2021-08-08 08:38] LABS: CREATININE 1.9 mg/dL (0.55-1.3); PHOSPHOROUS 4.8 mg/dL (2.5-4.9)
[2021-08-08 08:39] LABS: BILIRUBIN,TOTAL 0.2 mg/dL (0.2-1); TOT PROT 6.7 g/dl (6.4-8.2)
[2021-08-08] MEDS ORDERED: SODIUM ZIRCONIUM CYCLOSILICATE (LOKELMA) 5 GM PACKET PO SCH (10:00)
[2021-08-08] MEDS: POLYETHYLENE GLYCOL (HEALTHYLAX) 3350 17 GM PACKET PO SCH (10:07)
[2021-08-08] MEDS: AMINO ACIDS/PROTEIN HYDROLYS 30 ML LIQUID.PKT PO SCH (10:07)
[2021-08-08] MEDS: PANTOPRAZOLE 40 MG TABLET PO SCH (10:07)
[2021-08-08] MEDS: MULTIVITAMINS (DAILY MVI) TABLET (FP) PO SCH (10:08)
[2021-08-08] MEDS: MINERAL OIL/PET HY-PHL TOPICAL OINTMENT 454 GM JAR TP SCH (10:08)
[2021-08-08] MEDS: amLODIPine BESYLATE 10 MG TABLET (FP) PO SCH (10:08)
[2021-08-08] MEDS: GABAPENTIN 100 MG CAPSULE PO SCH (10:08)
[2021-08-08] MEDS: COLLAGENASE CLOSTRIDIUM HIST. 30 GRAMS TUBE TP SCH (10:08)
[2021-08-08 12:38] VITALS: BP 168/62; PULSE 74; TEMP 97.9
== END 2021-08-08 14:03 | disposition home health service (06) | DRG 668 ==
LOC: JER 10:53 → JERBED 13:38 → J6S 18:57 → J7W 07-24 18:17
PROVIDERS: ADMIT Internal Medicine; ATTEND Internal Medicine
PROC: 30233N1 Transfusion of Nonautologous Red Blood Cells into Peripheral Vein, Percutaneous Approach (ICD-10-PCS; 2021-07-18)
PROC: 0DJ08ZZ Inspection of Upper Intestinal Tract, Via Natural or Artificial Opening Endoscopic (ICD-10-PCS; 2021-07-22)
PROC: 0DSPXZZ Reposition Rectum, External Approach (ICD-10-PCS; 2021-07-27)
PROC: 0TP98DZ Removal of Intraluminal Device from Ureter, Via Natural or Artificial Opening Endoscopic (ICD-10-PCS; 2021-07-27)
PROC: 0TBB8ZZ Excision of Bladder, Via Natural or Artificial Opening Endoscopic (ICD-10-PCS; principal; 2021-07-27 09:30)
DX: C67.9 Malignant neoplasm of bladder, unspecified (principal); L89.153 Pressure ulcer of sacral region, stage 3; R53.2 Functional quadriplegia; A41.9 Sepsis, unspecified organism; N17.0 Acute kidney failure with tubular necrosis; K56.7 Ileus, unspecified; K91.89 Other postprocedural complications and disorders of digestive system; Z68.1 Body mass index [BMI] 19.9 or less, adult; D50.9 Iron deficiency anemia, unspecified; D63.8 Anemia in other chronic diseases classified elsewhere; I10 Essential (primary) hypertension; Z93.3 Colostomy status; E11.8 Type 2 diabetes mellitus with unspecified complications; E11.40 Type 2 diabetes mellitus with diabetic neuropathy, unspecified; Z74.01 Bed confinement status; R31.9 Hematuria, unspecified; K44.9 Diaphragmatic hernia without obstruction or gangrene; E87.5 Hyperkalemia; Y83.3 Surgical operation with formation of external stoma as the cause of abnormal reaction of the patient, or of later complication, without mention of misadventure at the time of the procedure; D72.829 Elevated white blood cell count, unspecified
CPT/HCPCS: 36415; 36430; 71045-TC-FY; 74021-TC-FY; 74177-TC; 80048; 80053; 81003; 82728; 82784; 83516; 83540; 83550; 83735; 84100; 84132; 84155; 84165; 85025; 85027; 85045; 86140; 86334; 86850; 86900; 86901; 86922; 87040; 87086; 87186; 88305-TC; 88307-TC; 94760; 97161-GP; 99285-25; C9803; J0131; J1644; J1756; P9058; Q9967; U0003; U0005

== ENCOUNTER 2021-10-26 10:43 | Inpatient (IN) | payer MEDICARE, OTHER ==
[2021-10-26 14:18] LABS: HEMATOCRIT 27.8 % (35.4-49); HEMOGLOBIN 8.6 GM/dL (11.7-16.9); MCH 22.5 pg (25.7-33.7); MEAN CELL VOLUME 72.6 fl (80-96); MEAN PLT VOLUME 8.1 fl (7.5-11.1); PLATELET COUNT 225 10^3/uL (134-434); RBC 3.83 M/mm3 (4.00-5.60); RDW 22.2 % (11.9-15.9); WHITE BLOOD COUNT 5.6 K/mm3 (4.0-10.0)
[2021-10-26 14:40] LABS: EPI CELLS 7 /uL (0-25.1); HYALINE CASTS 4 /uL (0-3.1); PH,URINE 7.5 (5.0-8.0); URINE APPEARANCE TURBID; URINE BILIRUBIN NEGATIVE (NEGATIVE); URINE COLOR RED; URINE GLUCOSE (UA) NEGATIVE (NEGATIVE); URINE KETONE NEGATIVE (NEGATIVE); URINE LEUK ESTERASE 3+ (NEGATIVE); URINE NITRITE POSITIVE (NEGATIVE); URINE PROTEIN 3+ (NEGATIVE); URINE UROBILINOGEN 0.2 mg/dL (0.2-1.0); URINE WBC 1786 /uL (0-25.8)
[2021-10-26 14:58] LABS: ALBUMIN 2.9 g/dl (3.4-5.0); CALCIUM 8.5 mg/dL (8.5-10.1)
[2021-10-26 15:01] LABS: URINE RBC 21330.8 /uL (0-23.9)
[2021-10-26 15:02] LABS: YEAST NONE SEEN (NEGATIVE)
[2021-10-26 15:03] LABS: BILIRUBIN,TOTAL 0.2 mg/dL (0.2-1); TOT PROT 7.2 g/dl (6.4-8.2)
[2021-10-26] MEDS ORDERED: MEROPENEM 1 GM in DEXTROSE 5%-WATER 100 ML IVPB ONE (15:19)
[2021-10-26 15:53] LABS: ANISOCYTOSIS 2+; MACROCYTOSIS 0; PLATELET ESTIMATE NORMAL; TARGET CELLS 1+; TEAR DROP CELLS 1+
[2021-10-27 03:35] VITALS: BMI 18.6
[2021-10-27] MEDS ORDERED: MEROPENEM 1 GM in DEXTROSE 5%-WATER 100 ML IVPB ONE (08:45)
[2021-10-27] MEDS ORDERED: MEROPENEM 1 GM VIAL (RESTRICTED TO ID) IVPB ONE ×2 (09:17→21:14)
[2021-10-27] MEDS ORDERED: DEXTROSE 5%-WATER 100 ML IVPB ONE ×2 (09:17→21:15)
[2021-10-27] MEDS: GABAPENTIN 100 MG CAPSULE PO SCH (09:49)
[2021-10-27] MEDS: LOSARTAN POTASSIUM 50 MG TABLET PO SCH (09:49)
[2021-10-27] MEDS: AMINO ACIDS/PROTEIN HYDROLYS 30 ML LIQUID.PKT PO SCH ×2 (09:49→16:41)
[2021-10-27] MEDS ORDERED: MEROPENEM 1 GM in DEXTROSE 5%-WATER 100 ML IVPB SCH (10:00)
[2021-10-27] MEDS: ENOXAPARIN NA (PORCINE) 30 MG/0.3 ML DISP.SYRIN SQ SCH (12:22)
[2021-10-27] MEDS: DOCUSATE SODIUM 100 MG CAPSULE (FP) PO SCH (23:00)
[2021-10-27] MEDS: MEROPENEM 1 GM in DEXTROSE 5%-WATER 100 ML IVPB SCH (23:00)
[2021-10-28] MEDS ORDERED: DEXTROSE 5%-WATER 100 ML IVPB ONE ×2 (08:39→21:28)
[2021-10-28] MEDS ORDERED: MEROPENEM 1 GM VIAL (RESTRICTED TO ID) IVPB ONE ×2 (08:39→21:28)
[2021-10-28 09:03] LABS: HEMOGLOBIN 9.2 GM/dL (11.7-16.9); MCH 22.8 pg (25.7-33.7); MCHC 31.6 g/dl (32.0-35.9); MEAN CELL VOLUME 72.2 fl (80-96); MEAN PLT VOLUME 7.8 fl (7.5-11.1); PLATELET COUNT 219 10^3/uL (134-434); RBC 4.01 M/mm3 (4.00-5.60); RDW 22.2 % (11.9-15.9); WHITE BLOOD COUNT 6.1 K/mm3 (4.0-10.0)
[2021-10-28] MEDS: ENOXAPARIN NA (PORCINE) 30 MG/0.3 ML DISP.SYRIN SQ SCH (09:15)
[2021-10-28] MEDS: MEROPENEM 1 GM in DEXTROSE 5%-WATER 100 ML IVPB SCH ×2 (09:15→21:33)
[2021-10-28] MEDS: AMINO ACIDS/PROTEIN HYDROLYS 30 ML LIQUID.PKT PO SCH ×2 (09:15→16:42)
[2021-10-28] MEDS: LOSARTAN POTASSIUM 50 MG TABLET PO SCH (09:15)
[2021-10-28] MEDS: GABAPENTIN 100 MG CAPSULE PO SCH (09:15)
[2021-10-28 09:21] LABS: ALBUMIN 2.7 g/dl (3.4-5.0); BLOOD UREA NITROGEN 38.1 mg/dL (7-18); CALCIUM 8.8 mg/dL (8.5-10.1)
[2021-10-28 09:26] LABS: BILIRUBIN,TOTAL 0.4 mg/dL (0.2-1); TOT PROT 6.9 g/dl (6.4-8.2)
[2021-10-28 10:47] LABS: ANISOCYTOSIS 1+; MACROCYTOSIS 0; PLATELET ESTIMATE NORMAL
[2021-10-28] MEDS: LACTATED RINGERS SOLUTION 1,000 ML/1,000 ML INFUS.BAG IV SCH (16:42)
[2021-10-28] MEDS: DOCUSATE SODIUM 100 MG CAPSULE (FP) PO SCH (21:34)
[2021-10-28] MEDS: ASCORBIC ACID 250 MG TABLET (FP) PO SCH (21:46)
[2021-10-29] MEDS ORDERED: DEXTROSE 5%-WATER 100 ML IVPB ONE ×2 (09:53→22:57)
[2021-10-29] MEDS ORDERED: MEROPENEM 1 GM VIAL (RESTRICTED TO ID) IVPB ONE ×2 (09:53→22:57)
[2021-10-29] MEDS: MEROPENEM 1 GM in DEXTROSE 5%-WATER 100 ML IVPB SCH ×2 (09:56→23:05)
[2021-10-29] MEDS: ENOXAPARIN NA (PORCINE) 30 MG/0.3 ML DISP.SYRIN SQ SCH (09:57)
[2021-10-29] MEDS: GABAPENTIN 100 MG CAPSULE PO SCH (09:57)
[2021-10-29] MEDS: ZINC SULFATE 220 MG CAPSULE (FP) PO SCH (09:57)
[2021-10-29] MEDS: ASCORBIC ACID 250 MG TABLET (FP) PO SCH ×2 (09:57→21:46)
[2021-10-29] MEDS: AMINO ACIDS/PROTEIN HYDROLYS 30 ML LIQUID.PKT PO SCH ×2 (09:57→17:48)
[2021-10-29 13:17] LABS: EOS % 26.7 % (0-4.5); HEMATOCRIT 25.5 % (35.4-49); HEMOGLOBIN 8.1 GM/dL (11.7-16.9); LYMPH % 17.5 % (8-40); MCH 22.9 pg (25.7-33.7); MCHC 31.8 g/dl (32.0-35.9); MEAN CELL VOLUME 72.1 fl (80-96); MEAN PLT VOLUME 6.2 fl (7.5-11.1); MONO % 10.4 % (3.8-10.2); NEUT % 44.4 % (42.8-82.8); PLATELET COUNT 205 10^3/uL (134-434); RBC 3.54 M/mm3 (4.00-5.60); RDW 21.4 % (11.9-15.9); WHITE BLOOD COUNT 6.6 K/mm3 (4.0-10.0)
[2021-10-29 13:27] LABS: ALBUMIN 2.6 g/dl (3.4-5.0)
[2021-10-29 13:28] LABS: BLOOD UREA NITROGEN 44.9 mg/dL (7-18); MAGNESIUM 1.4 mg/dL (1.8-2.4)
[2021-10-29 13:30] LABS: CREATININE 1.6 mg/dL (0.55-1.3)
[2021-10-29 13:31] LABS: PHOSPHOROUS 3.4 mg/dL (2.5-4.9)
[2021-10-29 13:32] LABS: BILIRUBIN,TOTAL 0.3 mg/dL (0.2-1); TOT PROT 6.5 g/dl (6.4-8.2)
[2021-10-29] MEDS: COLLAGENASE CLOSTRIDIUM HIST. 30 GRAMS TUBE TP SCH (14:54)
[2021-10-29] MEDS: LACTATED RINGERS SOLUTION 1,000 ML/1,000 ML INFUS.BAG IV SCH (14:56)
[2021-10-29 15:17] LABS: ANISOCYTOSIS 1+; MACROCYTOSIS 0; PLATELET ESTIMATE NORMAL
[2021-10-29] MEDS ORDERED: MAGNESIUM SULF 50% (8.12 MEQ/2 ML-1 GM VIAL) IVPB ONE (20:05)
[2021-10-29] MEDS: LOSARTAN POTASSIUM 50 MG TABLET PO SCH (21:46)
[2021-10-29] MEDS: DOCUSATE SODIUM 100 MG CAPSULE (FP) PO SCH (21:47)
[2021-10-30] MEDS: LACTATED RINGERS SOLUTION 1,000 ML/1,000 ML INFUS.BAG IV SCH ×2 (07:17→17:39)
[2021-10-30] MEDS: AMINO ACIDS/PROTEIN HYDROLYS 30 ML LIQUID.PKT PO SCH ×2 (08:41→17:38)
[2021-10-30 10:11] LABS: HEMATOCRIT 27.7 % (35.4-49); HEMOGLOBIN 8.5 GM/dL (11.7-16.9); MCH 22.5 pg (25.7-33.7); MCHC 30.6 g/dl (32.0-35.9); MEAN CELL VOLUME 73.5 fl (80-96); MEAN PLT VOLUME 8.1 fl (7.5-11.1); PLATELET COUNT 225 10^3/uL (134-434); RBC 3.76 M/mm3 (4.00-5.60); RDW 21.2 % (11.9-15.9); WHITE BLOOD COUNT 6.2 K/mm3 (4.0-10.0)
[2021-10-30] MEDS ORDERED: MEROPENEM 1 GM VIAL (RESTRICTED TO ID) IVPB ONE ×2 (10:56→21:11)
[2021-10-30] MEDS ORDERED: DEXTROSE 5%-WATER 100 ML IVPB ONE ×2 (10:56→21:11)
[2021-10-30 10:59] LABS: ANISOCYTOSIS 2+; MACROCYTOSIS 0; PLATELET ESTIMATE NORMAL
[2021-10-30] MEDS: MEROPENEM 1 GM in DEXTROSE 5%-WATER 100 ML IVPB SCH ×2 (11:10→22:35)
[2021-10-30] MEDS: ENOXAPARIN NA (PORCINE) 30 MG/0.3 ML DISP.SYRIN SQ SCH (11:11)
[2021-10-30] MEDS: ZINC SULFATE 220 MG CAPSULE (FP) PO SCH (11:11)
[2021-10-30] MEDS: LOSARTAN POTASSIUM 50 MG TABLET PO SCH (11:11)
[2021-10-30] MEDS: GABAPENTIN 100 MG CAPSULE PO SCH (11:11)
[2021-10-30] MEDS: ASCORBIC ACID 250 MG TABLET (FP) PO SCH ×2 (11:11→22:35)
[2021-10-30 11:18] LABS: ALBUMIN 2.6 g/dl (3.4-5.0); BLOOD UREA NITROGEN 44.3 mg/dL (7-18)
[2021-10-30 11:22] LABS: CREATININE 1.6 mg/dL (0.55-1.3)
[2021-10-30 11:23] LABS: BILIRUBIN,TOTAL 0.2 mg/dL (0.2-1); TOT PROT 6.8 g/dl (6.4-8.2)
[2021-10-30] MEDS: amLODIPine BESYLATE 5 MG TABLET (FP) PO SCH ×2 (13:14→13:43)
[2021-10-30] MEDS: COLLAGENASE CLOSTRIDIUM HIST. 30 GRAMS TUBE TP SCH (13:15)
[2021-10-30] MEDS: DOCUSATE SODIUM 100 MG CAPSULE (FP) PO SCH (22:34)
[2021-10-31] MEDS: LACTATED RINGERS SOLUTION 1,000 ML/1,000 ML INFUS.BAG IV SCH (01:21)
[2021-10-31 08:46] LABS: HEMATOCRIT 28.6 % (35.4-49); HEMOGLOBIN 8.9 GM/dL (11.7-16.9); MCH 22.6 pg (25.7-33.7); MCHC 31.1 g/dl (32.0-35.9); MEAN CELL VOLUME 72.8 fl (80-96); PLATELET COUNT 217 10^3/uL (134-434); RBC 3.92 M/mm3 (4.00-5.60); RDW 21.2 % (11.9-15.9); WHITE BLOOD COUNT 6.1 K/mm3 (4.0-10.0)
[2021-10-31 09:17] LABS: ALBUMIN 2.5 g/dl (3.4-5.0)
[2021-10-31 09:19] LABS: CREATININE 1.4 mg/dL (0.55-1.3)
[2021-10-31 09:21] LABS: BILIRUBIN,TOTAL 0.2 mg/dL (0.2-1); TOT PROT 6.7 g/dl (6.4-8.2)
[2021-10-31 09:45] LABS: ANISOCYTOSIS 2+; HELMET CELLS 1+; MACROCYTOSIS 0; PLATELET ESTIMATE NORMAL
[2021-10-31] MEDS ORDERED: amLODIPine BESYLATE 5 MG TABLET (FP) PO SCH (10:00)
[2021-10-31] MEDS ORDERED: MEROPENEM 1 GM VIAL (RESTRICTED TO ID) IVPB ONE ×2 (11:50→21:21)
[2021-10-31] MEDS ORDERED: DEXTROSE 5%-WATER 100 ML IVPB ONE ×2 (11:50→21:22)
[2021-10-31] MEDS: COLLAGENASE CLOSTRIDIUM HIST. 30 GRAMS TUBE TP SCH (12:09)
[2021-10-31] MEDS: ENOXAPARIN NA (PORCINE) 30 MG/0.3 ML DISP.SYRIN SQ SCH (12:12)
[2021-10-31] MEDS: amLODIPine BESYLATE 5 MG TABLET (FP) PO SCH (12:13)
[2021-10-31] MEDS: GABAPENTIN 100 MG CAPSULE PO SCH (12:13)
[2021-10-31] MEDS: ZINC SULFATE 220 MG CAPSULE (FP) PO SCH (12:13)
[2021-10-31] MEDS: LOSARTAN POTASSIUM 50 MG TABLET PO SCH (12:13)
[2021-10-31] MEDS: ASCORBIC ACID 250 MG TABLET (FP) PO SCH ×2 (12:13→21:47)
[2021-10-31] MEDS: MEROPENEM 1 GM in DEXTROSE 5%-WATER 100 ML IVPB SCH ×2 (12:14→21:46)
[2021-10-31] MEDS: AMINO ACIDS/PROTEIN HYDROLYS 30 ML LIQUID.PKT PO SCH ×2 (12:17→17:43)
[2021-10-31] MEDS: DOCUSATE SODIUM 100 MG CAPSULE (FP) PO SCH (21:47)
[2021-11-01] MEDS ORDERED: SILVER SULFADIAZINE 1% TOP CREAM 400 GM JAR TP SCH (10:00)
[2021-11-01] MEDS ORDERED: MEROPENEM 1 GM VIAL (RESTRICTED TO ID) IVPB ONE ×2 (10:33→22:18)
[2021-11-01] MEDS ORDERED: DEXTROSE 5%-WATER 100 ML IVPB ONE ×2 (10:34→22:18)
[2021-11-01] MEDS: MEROPENEM 1 GM in DEXTROSE 5%-WATER 100 ML IVPB SCH ×2 (10:40→22:22)
[2021-11-01] MEDS: ASCORBIC ACID 250 MG TABLET (FP) PO SCH ×2 (10:41→22:24)
[2021-11-01] MEDS: GABAPENTIN 100 MG CAPSULE PO SCH (10:41)
[2021-11-01] MEDS: LOSARTAN POTASSIUM 50 MG TABLET PO SCH (10:41)
[2021-11-01] MEDS: ZINC SULFATE 220 MG CAPSULE (FP) PO SCH (10:41)
[2021-11-01] MEDS: amLODIPine BESYLATE 5 MG TABLET (FP) PO SCH (10:41)
[2021-11-01] MEDS: AMINO ACIDS/PROTEIN HYDROLYS 30 ML LIQUID.PKT PO SCH ×2 (10:42→17:04)
[2021-11-01] MEDS ORDERED: PROPOFOL 20 ML ONE (16:38)
[2021-11-01] MEDS ORDERED: LIDOCAINE HCL/PF 2% SDV 5ML VIAL ONE (16:38)
[2021-11-01] MEDS ORDERED: IOHEXOL 300 MG/ML INFUS..BTL IV ONE (17:39)
[2021-11-01] MEDS ORDERED: hydrALAZINE HCL 20 MG/ML VIAL ONE (18:33)
[2021-11-01] MEDS ORDERED: ONDANSETRON 4 MG/2 ML VIAL IVPUSH PRN (19:07)
[2021-11-01] MEDS: DEXTROSE 5%-0.45% SALINE 1,000 ML IV SCH (19:50)
[2021-11-01] MEDS: DOCUSATE SODIUM 100 MG CAPSULE (FP) PO SCH (22:21)
[2021-11-02 09:21] LABS: BASO % 0.8 % (0-2.0); EOS % 15.1 % (0-4.5); HEMATOCRIT 26.1 % (35.4-49); HEMOGLOBIN 8.1 GM/dL (11.7-16.9); LYMPH % 12.9 % (8-40); MCH 22.7 pg (25.7-33.7); MCHC 30.9 g/dl (32.0-35.9); MEAN CELL VOLUME 73.5 fl (80-96); MEAN PLT VOLUME 6.4 fl (7.5-11.1); MONO % 8.4 % (3.8-10.2); NEUT % 62.8 % (42.8-82.8); PLATELET COUNT 196 10^3/uL (134-434); RBC 3.55 M/mm3 (4.00-5.60); RDW 21.4 % (11.9-15.9); WHITE BLOOD COUNT 7.7 K/mm3 (4.0-10.0)
[2021-11-02] MEDS ORDERED: ENOXAPARIN NA (PORCINE) 30 MG/0.3 ML DISP.SYRIN SQ SCH (10:00)
[2021-11-02 10:02] LABS: ALBUMIN 2.4 g/dl (3.4-5.0); CALCIUM 8.6 mg/dL (8.5-10.1)
[2021-11-02 10:05] LABS: CREATININE 1.3 mg/dL (0.55-1.3)
[2021-11-02 10:07] LABS: BILIRUBIN,TOTAL 0.3 mg/dL (0.2-1); TOT PROT 6.2 g/dl (6.4-8.2)
[2021-11-02] MEDS ORDERED: MEROPENEM 1 GM VIAL (RESTRICTED TO ID) IVPB ONE ×2 (11:06→21:50)
[2021-11-02] MEDS ORDERED: DEXTROSE 5%-WATER 100 ML IVPB ONE ×2 (11:07→21:50)
[2021-11-02] MEDS: MEROPENEM 1 GM in DEXTROSE 5%-WATER 100 ML IVPB SCH ×2 (11:15→21:56)
[2021-11-02] MEDS: amLODIPine BESYLATE 5 MG TABLET (FP) PO SCH (11:19)
[2021-11-02] MEDS: DEXTROSE 5%-0.45% SALINE 1,000 ML IV SCH ×2 (11:20→21:57)
[2021-11-02] MEDS: GABAPENTIN 100 MG CAPSULE PO SCH (11:20)
[2021-11-02] MEDS: LOSARTAN POTASSIUM 50 MG TABLET PO SCH (11:20)
[2021-11-02] MEDS: ZINC SULFATE 220 MG CAPSULE (FP) PO SCH (11:20)
[2021-11-02] MEDS: AMINO ACIDS/PROTEIN HYDROLYS 30 ML LIQUID.PKT PO SCH ×2 (11:20→17:47)
[2021-11-02] MEDS: ASCORBIC ACID 250 MG TABLET (FP) PO SCH ×2 (11:27→21:58)
[2021-11-02] MEDS: SILVER SULFADIAZINE 1% TOP CREAM 400 GM JAR TP SCH (17:47)
[2021-11-02] MEDS: DOCUSATE SODIUM 100 MG CAPSULE (FP) PO SCH (21:57)
[2021-11-03] MEDS: DEXTROSE 5%-0.45% SALINE 1,000 ML IV SCH ×2 (03:35→18:18)
[2021-11-03 08:15] LABS: HEMATOCRIT 27.5 % (35.4-49); HEMOGLOBIN 8.5 GM/dL (11.7-16.9); LYMPH % 22.8 % (8-40); MCH 22.7 pg (25.7-33.7); MCHC 30.8 g/dl (32.0-35.9); MEAN CELL VOLUME 73.7 fl (80-96); MEAN PLT VOLUME 8.1 fl (7.5-11.1); MONO % 8.5 % (3.8-10.2); NEUT % 42.2 % (42.8-82.8); PLATELET COUNT 210 10^3/uL (134-434); RBC 3.73 M/mm3 (4.00-5.60); WHITE BLOOD COUNT 8.4 K/mm3 (4.0-10.0)
[2021-11-03 08:43] LABS: CALCIUM 8.9 mg/dL (8.5-10.1)
[2021-11-03 08:44] LABS: ALBUMIN 2.6 g/dl (3.4-5.0); BLOOD UREA NITROGEN 50.4 mg/dL (7-18)
[2021-11-03 08:47] LABS: CREATININE 1.6 mg/dL (0.55-1.3)
[2021-11-03 08:48] LABS: TOT PROT 6.6 g/dl (6.4-8.2)
[2021-11-03 08:49] LABS: BILIRUBIN,TOTAL 0.2 mg/dL (0.2-1)
[2021-11-03 09:04] LABS: EOS % 25.5 % (0-4.5)
[2021-11-03] MEDS ORDERED: DEXTROSE 5%-WATER 100 ML IVPB ONE ×2 (10:39→21:33)
[2021-11-03] MEDS ORDERED: MEROPENEM 1 GM VIAL (RESTRICTED TO ID) IVPB ONE ×2 (10:39→21:33)
[2021-11-03 10:42] LABS: ANISOCYTOSIS 2+; MACROCYTOSIS 0; OVALOCYTE 1+; PLATELET ESTIMATE NORMAL
[2021-11-03] MEDS: AMINO ACIDS/PROTEIN HYDROLYS 30 ML LIQUID.PKT PO SCH ×2 (10:54→17:18)
[2021-11-03] MEDS: ZINC SULFATE 220 MG CAPSULE (FP) PO SCH (10:54)
[2021-11-03] MEDS: amLODIPine BESYLATE 5 MG TABLET (FP) PO SCH (10:54)
[2021-11-03] MEDS: GABAPENTIN 100 MG CAPSULE PO SCH (10:54)
[2021-11-03] MEDS: LOSARTAN POTASSIUM 50 MG TABLET PO SCH (10:54)
[2021-11-03] MEDS: ASCORBIC ACID 250 MG TABLET (FP) PO SCH ×2 (10:55→21:40)
[2021-11-03] MEDS: MEROPENEM 1 GM in DEXTROSE 5%-WATER 100 ML IVPB SCH ×2 (10:56→21:39)
[2021-11-03] MEDS: SILVER SULFADIAZINE 1% TOP CREAM 400 GM JAR TP SCH (10:56)
[2021-11-03] MEDS: DOCUSATE SODIUM 100 MG CAPSULE (FP) PO SCH (21:40)
[2021-11-04] MEDS ORDERED: MEROPENEM 1 GM VIAL (RESTRICTED TO ID) IVPB ONE (09:10)
[2021-11-04] MEDS ORDERED: DEXTROSE 5%-WATER 100 ML IVPB ONE (09:10)
[2021-11-04] MEDS: ZINC SULFATE 220 MG CAPSULE (FP) PO SCH (09:22)
[2021-11-04] MEDS: MEROPENEM 1 GM in DEXTROSE 5%-WATER 100 ML IVPB SCH (09:22)
[2021-11-04] MEDS: AMINO ACIDS/PROTEIN HYDROLYS 30 ML LIQUID.PKT PO SCH ×2 (09:22→16:56)
[2021-11-04] MEDS: GABAPENTIN 100 MG CAPSULE PO SCH (09:22)
[2021-11-04] MEDS: LOSARTAN POTASSIUM 50 MG TABLET PO SCH (09:23)
[2021-11-04] MEDS: ASCORBIC ACID 250 MG TABLET (FP) PO SCH ×2 (09:23→21:01)
[2021-11-04] MEDS: amLODIPine BESYLATE 5 MG TABLET (FP) PO SCH (09:23)
[2021-11-04] MEDS: SILVER SULFADIAZINE 1% TOP CREAM 400 GM JAR TP SCH (09:23)
[2021-11-04 12:15] LABS: HEMATOCRIT 24.2 % (35.4-49); HEMOGLOBIN 7.7 GM/dL (11.7-16.9); MCHC 31.7 g/dl (32.0-35.9); MEAN CELL VOLUME 72.4 fl (80-96); MEAN PLT VOLUME 6.8 fl (7.5-11.1); PLATELET COUNT 234 10^3/uL (134-434); RBC 3.34 M/mm3 (4.00-5.60); WHITE BLOOD COUNT 8.2 K/mm3 (4.0-10.0)
[2021-11-04 12:36] LABS: BLOOD UREA NITROGEN 58.9 mg/dL (7-18); CALCIUM 8.3 mg/dL (8.5-10.1)
[2021-11-04 12:37] LABS: ALBUMIN 2.3 g/dl (3.4-5.0)
[2021-11-04 12:39] LABS: CREATININE 1.6 mg/dL (0.55-1.3)
[2021-11-04 12:40] LABS: BILIRUBIN,TOTAL 0.4 mg/dL (0.2-1); TOT PROT 5.9 g/dl (6.4-8.2)
[2021-11-04 13:08] LABS: ANISOCYTOSIS 3+; MACROCYTOSIS 0; PLATELET ESTIMATE NORMAL; TARGET CELLS 1+
[2021-11-04] MEDS: DEXTROSE 5%-0.45% SALINE 1,000 ML IV SCH (20:57)
[2021-11-04] MEDS: DOCUSATE SODIUM 100 MG CAPSULE (FP) PO SCH (21:01)
[2021-11-05 10:04] LABS: BASO % 0.8 % (0-2.0); EOS % 23.5 % (0-4.5); HEMATOCRIT 25.1 % (35.4-49); HEMOGLOBIN 7.8 GM/dL (11.7-16.9); LYMPH % 19.6 % (8-40); MCH 23.1 pg (25.7-33.7); MCHC 31.1 g/dl (32.0-35.9); MEAN CELL VOLUME 74.2 fl (80-96); MEAN PLT VOLUME 6.8 fl (7.5-11.1); MONO % 9.6 % (3.8-10.2); NEUT % 46.5 % (42.8-82.8); PLATELET COUNT 257 10^3/uL (134-434); RBC 3.39 M/mm3 (4.00-5.60); RDW 20.5 % (11.9-15.9); WHITE BLOOD COUNT 8.7 K/mm3 (4.0-10.0)
[2021-11-05 10:25] LABS: CALCIUM 8.6 mg/dL (8.5-10.1)
[2021-11-05 10:26] LABS: ALBUMIN 2.3 g/dl (3.4-5.0); BLOOD UREA NITROGEN 54.1 mg/dL (7-18); MAGNESIUM 2.2 mg/dL (1.8-2.4)
[2021-11-05 10:29] LABS: CREATININE 1.4 mg/dL (0.55-1.3); PHOSPHOROUS 3.7 mg/dL (2.5-4.9)
[2021-11-05 10:30] LABS: BILIRUBIN,TOTAL 0.2 mg/dL (0.2-1); TOT PROT 6.1 g/dl (6.4-8.2)
[2021-11-05 10:52] LABS: ANISOCYTOSIS 1+; MACROCYTOSIS 0; PLATELET ESTIMATE NORMAL
[2021-11-05] MEDS: ASCORBIC ACID 250 MG TABLET (FP) PO SCH ×2 (11:21→22:25)
[2021-11-05] MEDS: ZINC SULFATE 220 MG CAPSULE (FP) PO SCH (11:21)
[2021-11-05] MEDS: AMINO ACIDS/PROTEIN HYDROLYS 30 ML LIQUID.PKT PO SCH ×2 (11:21→18:07)
[2021-11-05] MEDS: LOSARTAN POTASSIUM 50 MG TABLET PO SCH (11:21)
[2021-11-05] MEDS: GABAPENTIN 100 MG CAPSULE PO SCH (11:21)
[2021-11-05] MEDS: amLODIPine BESYLATE 5 MG TABLET (FP) PO SCH (11:21)
[2021-11-05] MEDS: SILVER SULFADIAZINE 1% TOP CREAM 400 GM JAR TP SCH (18:09)
[2021-11-05] MEDS: DOCUSATE SODIUM 100 MG CAPSULE (FP) PO SCH (22:25)
[2021-11-06] MEDS: ZINC SULFATE 220 MG CAPSULE (FP) PO SCH (11:43)
[2021-11-06] MEDS: GABAPENTIN 100 MG CAPSULE PO SCH (11:43)
[2021-11-06] MEDS: AMINO ACIDS/PROTEIN HYDROLYS 30 ML LIQUID.PKT PO SCH (11:43)
[2021-11-06] MEDS: LOSARTAN POTASSIUM 50 MG TABLET PO SCH (11:44)
[2021-11-06] MEDS: SILVER SULFADIAZINE 1% TOP CREAM 400 GM JAR TP SCH (11:44)
[2021-11-06] MEDS: ASCORBIC ACID 250 MG TABLET (FP) PO SCH (11:45)
[2021-11-06] MEDS: amLODIPine BESYLATE 5 MG TABLET (FP) PO SCH (11:45)
[2021-11-06 14:30] VITALS: BP 112/53; PULSE 73; TEMP 98
== END 2021-11-06 17:30 | disposition home health service (06) | DRG 659 ==
LOC: JER 10:43 → JERBED 15:29 → J7W 10-27 03:20
PROVIDERS: ADMIT Internal Medicine; ATTEND Internal Medicine
PROC: 3E1K88Z Irrigation of Genitourinary Tract using Irrigating Substance, Via Natural or Artificial Opening Endoscopic (ICD-10-PCS; 2021-11-01)
PROC: 0T9B80Z Drainage of Bladder with Drainage Device, Via Natural or Artificial Opening Endoscopic (ICD-10-PCS; 2021-11-01)
PROC: BT14ZZZ Fluoroscopy of Kidneys, Ureters and Bladder (ICD-10-PCS; principal; 2021-11-01 14:00)
PROC: 0T788DZ Dilation of Bilateral Ureters with Intraluminal Device, Via Natural or Artificial Opening Endoscopic (ICD-10-PCS; 2021-11-01 14:00)
PROC: 0TBB8ZX Excision of Bladder, Via Natural or Artificial Opening Endoscopic, Diagnostic (ICD-10-PCS; 2021-11-01 14:00)
DX: T83.511A Infection and inflammatory reaction due to indwelling urethral catheter, initial encounter (principal); L89.323 Pressure ulcer of left buttock, stage 3; L89.313 Pressure ulcer of right buttock, stage 3; L89.154 Pressure ulcer of sacral region, stage 4; L89.104 Pressure ulcer of unspecified part of back, stage 4; R53.2 Functional quadriplegia; E43 Unspecified severe protein-calorie malnutrition; N13.6 Pyonephrosis; E87.0 Hyperosmolality and hypernatremia; N17.9 Acute kidney failure, unspecified; Z68.1 Body mass index [BMI] 19.9 or less, adult; D64.9 Anemia, unspecified; I12.9 Hypertensive chronic kidney disease with stage 1 through stage 4 chronic kidney disease, or unspecified chronic kidney disease; N18.9 Chronic kidney disease, unspecified; E11.22 Type 2 diabetes mellitus with diabetic chronic kidney disease; N31.9 Neuromuscular dysfunction of bladder, unspecified; Z93.3 Colostomy status; Z93.50 Unspecified cystostomy status; Y83.8 Other surgical procedures as the cause of abnormal reaction of the patient, or of later complication, without mention of misadventure at the time of the procedure; Z85.51 Personal history of malignant neoplasm of bladder
CPT/HCPCS: 36415; 74176-TC; 76000-TC-FY; 80053; 81003; 82962; 83735; 84100; 85025; 87086; 88307-TC; 93005; 93010; 94760; 97161-GP; 99285-25; C9803; U0003; U0005

== ENCOUNTER 2021-11-11 17:31 | Inpatient (IN) | payer MEDICARE, OTHER ==
[2021-11-11 18:07] VITALS: BMI 20.3
[2021-11-11 20:58] LABS: EPI CELLS 9 /uL (0-25.1); HYALINE CASTS 0 /uL (0-3.1); URINE APPEARANCE TURBID; URINE BILIRUBIN 2+ (NEGATIVE); URINE COLOR RED; URINE GLUCOSE (UA) NEGATIVE (NEGATIVE); URINE KETONE NEGATIVE (NEGATIVE); URINE LEUK ESTERASE 3+ (NEGATIVE); URINE NITRITE POSITIVE (NEGATIVE); URINE PROTEIN 3+ (NEGATIVE); URINE RBC 20 /uL (0-23.9); URINE UROBILINOGEN 0.2 mg/dL (0.2-1.0); URINE WBC 1 /uL (0-25.8)
[2021-11-11 21:30] LABS: URINE BACTERIA 271 /uL (0-1359)
[2021-11-11] MEDS ORDERED: LIDOCAINE HCL 2% JELLY 10 ML CARTRIDGE ONE (21:35)
[2021-11-11 21:49] LABS: HEMATOCRIT 24.9 % (35.4-49); HEMOGLOBIN 7.6 GM/dL (11.7-16.9); MCH 22.3 pg (25.7-33.7); MCHC 30.5 g/dl (32.0-35.9); MEAN CELL VOLUME 73.2 fl (80-96); MEAN PLT VOLUME 6.5 fl (7.5-11.1); PLATELET COUNT 349 10^3/uL (134-434); RDW 19.2 % (11.9-15.9); WHITE BLOOD COUNT 7.8 K/mm3 (4.0-10.0)
[2021-11-11 21:55] LABS: PROTHROMBIN TIME (PATIENT) 11.5 SEC (9.7-13.0)
[2021-11-11 21:57] LABS: ACTIVATED PTT 31.9 SECONDS (25.2-36.5)
[2021-11-11 22:07] LABS: CHLORIDE 108 mmol/L (98-107); SODIUM 140 mmol/L (136-145)
[2021-11-11 22:09] LABS: BLOOD UREA NITROGEN 46.4 mg/dL (7-18); CALCIUM 8.4 mg/dL (8.5-10.1)
[2021-11-11 22:10] LABS: ALBUMIN 2.7 g/dl (3.4-5.0); ANION GAP 3 MMOL/L (8-16); CO2 30 mmol/L (21-32); GLUCOSE,RANDOM 105 mg/dL (74-106)
[2021-11-11 22:12] LABS: CREATININE 1.7 mg/dL (0.55-1.3)
[2021-11-11 22:13] LABS: SGOT/AST 17 U/L (15-37); SGPT/ALT 27 U/L (13-61)
[2021-11-11 22:14] LABS: BILIRUBIN,TOTAL 0.2 mg/dL (0.2-1); TOT PROT 7.1 g/dl (6.4-8.2)
[2021-11-11 22:15] LABS: ALK PHOS 85 U/L (45-117)
[2021-11-11] MEDS ORDERED: INSULIN REGULAR HUMAN 100 UNITS/ML *VIAL IVPUSH ONE (22:30)
[2021-11-11] MEDS ORDERED: DEXTROSE 50%-WATER - 25 GM/50 ML VIAL IVPUSH ONE (22:30)
[2021-11-11] MEDS ORDERED: CALCIUM GLUC IN NACL, ISO-OSM 1 GM/50 ML BAG IVPB ONE (22:30)
[2021-11-11 22:54] LABS: EPI CELLS 19 /uL (0-25.1); HYALINE CASTS 1 /uL (0-3.1); URINE APPEARANCE CLOUDY; URINE BACTERIA 1 /uL (0-1359); URINE BILIRUBIN NEGATIVE (NEGATIVE); URINE COLOR RED; URINE GLUCOSE (UA) NEGATIVE (NEGATIVE); URINE KETONE NEGATIVE (NEGATIVE); URINE LEUK ESTERASE 2+ (NEGATIVE); URINE NITRITE NEGATIVE (NEGATIVE); URINE PROTEIN TRACE (NEGATIVE); URINE UROBILINOGEN 0.2 mg/dL (0.2-1.0); URINE WBC 278 /uL (0-25.8)
[2021-11-11 23:07] LABS: ANISOCYTOSIS 1+; MACROCYTOSIS 0; PLATELET ESTIMATE NORMAL
[2021-11-11 23:48] LABS: URINE RBC 22142 /uL (0-23.9)
[2021-11-12] MEDS ORDERED: DEXTROSE 50%-WATER 25 GM/50 ML DISP.SYRIN ONE (00:28)
[2021-11-12 02:09] LABS: BLOOD UREA NITROGEN 44.8 mg/dL (7-18); CALCIUM 8.9 mg/dL (8.5-10.1)
[2021-11-12 02:13] LABS: CREATININE 1.8 mg/dL (0.55-1.3)
[2021-11-12] MEDS ORDERED: ACETAMINOPHEN 1000 MG/100 ML BAG IVPB PRN (03:39)
[2021-11-12] MEDS: PATIENT'S OWN MEDICATION (NON-FORMULARY) (Brinzolamide/Brimonidine Tart [Simbrinza 1%-0.2% OD SCH (03:56)
[2021-11-12] MEDS: amLODIPine BESYLATE 5 MG TABLET (FP) PO SCH (10:02)
[2021-11-12] MEDS: LOSARTAN POTASSIUM 50 MG TABLET PO SCH (10:02)
[2021-11-12] MEDS: AMINO ACIDS/PROTEIN HYDROLYS 30 ML LIQUID.PKT PO SCH ×2 (10:02→17:43)
[2021-11-12] MEDS: GABAPENTIN 100 MG CAPSULE PO SCH (10:02)
[2021-11-12 12:32] LABS: BASO % 0.9 % (0-2.0); HEMATOCRIT 24.6 % (35.4-49); HEMOGLOBIN 7.6 GM/dL (11.7-16.9); MCH 22.9 pg (25.7-33.7); MCHC 30.9 g/dl (32.0-35.9); MEAN CELL VOLUME 74.2 fl (80-96); MEAN PLT VOLUME 6.2 fl (7.5-11.1); MONO % 8.3 % (3.8-10.2); NEUT % 61.8 % (42.8-82.8); PLATELET COUNT 306 10^3/uL (134-434); RBC 3.32 M/mm3 (4.00-5.60); RDW 18.9 % (11.9-15.9); WHITE BLOOD COUNT 7.7 K/mm3 (4.0-10.0)
[2021-11-12 12:46] LABS: ALBUMIN 2.6 g/dl (3.4-5.0); CALCIUM 8.8 mg/dL (8.5-10.1)
[2021-11-12 12:50] LABS: CREATININE 1.6 mg/dL (0.55-1.3)
[2021-11-12 12:51] LABS: BILIRUBIN,TOTAL 0.6 mg/dL (0.2-1); TOT PROT 6.6 g/dl (6.4-8.2)
[2021-11-12] MEDS: MINERAL OIL/PET HY-PHL TOPICAL OINTMENT 454 GM JAR TP SCH ×2 (15:53→21:34)
[2021-11-12] MEDS: SILVER SULFADIAZINE 1% TOP CREAM 400 GM JAR TP SCH (15:54)
[2021-11-12] MEDS ORDERED: MEROPENEM 1 GM in DEXTROSE 5%-WATER 100 ML IVPB ONE (17:00)
[2021-11-12] MEDS ORDERED: MEROPENEM 1 GM VIAL (RESTRICTED TO ID) IVPB ONE (17:46)
[2021-11-12] MEDS ORDERED: DEXTROSE 5%-WATER 100 ML IVPB ONE (17:46)
[2021-11-12] MEDS: DOCUSATE SODIUM 100 MG CAPSULE (FP) PO SCH (21:35)
[2021-11-13] MEDS ORDERED: DEXTROSE 5%-WATER 100 ML IVPB ONE ×2 (04:57→16:18)
[2021-11-13] MEDS ORDERED: MEROPENEM 1 GM VIAL (RESTRICTED TO ID) IVPB ONE ×2 (04:57→16:18)
[2021-11-13] MEDS: MEROPENEM 1 GM in DEXTROSE 5%-WATER 100 ML IVPB SCH ×2 (05:02→17:07)
[2021-11-13 08:56] LABS: BASO % 0.5 % (0-2.0); EOS % 17.6 % (0-4.5); HEMATOCRIT 23.9 % (35.4-49); HEMOGLOBIN 7.4 GM/dL (11.7-16.9); LYMPH % 18.5 % (8-40); MCH 22.7 pg (25.7-33.7); MCHC 30.8 g/dl (32.0-35.9); MEAN CELL VOLUME 73.8 fl (80-96); MEAN PLT VOLUME 6.8 fl (7.5-11.1); MONO % 6.4 % (3.8-10.2); PLATELET COUNT 361 10^3/uL (134-434); RBC 3.24 M/mm3 (4.00-5.60); RDW 19.1 % (11.9-15.9); WHITE BLOOD COUNT 10.2 K/mm3 (4.0-10.0)
[2021-11-13] MEDS: LOSARTAN POTASSIUM 50 MG TABLET PO SCH (09:12)
[2021-11-13] MEDS: amLODIPine BESYLATE 5 MG TABLET (FP) PO SCH (09:12)
[2021-11-13] MEDS: MINERAL OIL/PET HY-PHL TOPICAL OINTMENT 454 GM JAR TP SCH ×2 (09:12→22:01)
[2021-11-13] MEDS: GABAPENTIN 100 MG CAPSULE PO SCH (09:12)
[2021-11-13] MEDS: AMINO ACIDS/PROTEIN HYDROLYS 30 ML LIQUID.PKT PO SCH ×2 (09:12→17:06)
[2021-11-13] MEDS: SILVER SULFADIAZINE 1% TOP CREAM 400 GM JAR TP SCH (09:13)
[2021-11-13 09:17] LABS: CHLORIDE 108 mmol/L (98-107); SODIUM 140 mmol/L (136-145)
[2021-11-13 09:37] LABS: CALCIUM 9.2 mg/dL (8.5-10.1)
[2021-11-13 09:38] LABS: ALBUMIN 2.6 g/dl (3.4-5.0); CO2 25 mmol/L (21-32); GLUCOSE,RANDOM 85 mg/dL (74-106)
[2021-11-13 09:39] LABS: BLOOD UREA NITROGEN 51.4 mg/dL (7-18)
[2021-11-13 09:40] LABS: SGPT/ALT 22 U/L (13-61)
[2021-11-13 09:41] LABS: CREATININE 1.6 mg/dL (0.55-1.3); SGOT/AST 30 U/L (15-37)
[2021-11-13 09:42] LABS: TOT PROT 7.2 g/dl (6.4-8.2)
[2021-11-13 09:43] LABS: ALK PHOS 81 U/L (45-117); BILIRUBIN,TOTAL 0.3 mg/dL (0.2-1)
[2021-11-13 09:44] LABS: ANION GAP 7 MMOL/L (8-16)
[2021-11-13] MEDS ORDERED: ONDANSETRON 4 MG/2 ML VIAL IVPUSH PRN (12:47)
[2021-11-13 14:03] LABS: ALBUMIN 2.5 g/dl (3.4-5.0); CALCIUM 8.8 mg/dL (8.5-10.1)
[2021-11-13 14:04] LABS: BLOOD UREA NITROGEN 49.1 mg/dL (7-18)
[2021-11-13 14:07] LABS: CREATININE 1.6 mg/dL (0.55-1.3)
[2021-11-13 14:08] LABS: TOT PROT 6.8 g/dl (6.4-8.2)
[2021-11-13 14:14] LABS: BILIRUBIN,TOTAL 0.2 mg/dL (0.2-1)
[2021-11-13] MEDS: PATIENT'S OWN MEDICATION (NON-FORMULARY) (Brinzolamide/Brimonidine Tart [Simbrinza 1%-0.2% OD SCH (19:58)
[2021-11-13] MEDS ORDERED: INSULIN (NOVOLOG) ASPART 100 UNITS/ML 10ML VIAL ONE (21:44)
[2021-11-13] MEDS: DOCUSATE SODIUM 100 MG CAPSULE (FP) PO SCH (21:59)
[2021-11-13] MEDS: INSULIN SLIDING SCALE (NOVOLOG) 1 VIAL SQ SCH (22:05)
[2021-11-14] MEDS ORDERED: MEROPENEM 1 GM VIAL (RESTRICTED TO ID) IVPB ONE ×2 (05:53→16:21)
[2021-11-14] MEDS ORDERED: DEXTROSE 5%-WATER 100 ML IVPB ONE ×2 (05:53→16:21)
[2021-11-14] MEDS: MEROPENEM 1 GM in DEXTROSE 5%-WATER 100 ML IVPB SCH ×2 (05:56→17:19)
[2021-11-14] MEDS: INSULIN SLIDING SCALE (NOVOLOG) 1 VIAL SQ SCH ×4 (06:06→21:14)
[2021-11-14 08:00] LABS: BASO % 0.7 % (0-2.0); EOS % 26.4 % (0-4.5); HEMATOCRIT 21.9 % (35.4-49); LYMPH % 15.5 % (8-40); MCH 23.1 pg (25.7-33.7); MCHC 32.1 g/dl (32.0-35.9); MONO % 7.3 % (3.8-10.2); NEUT % 50.1 % (42.8-82.8); PLATELET COUNT 295 10^3/uL (134-434); RBC 3.04 M/mm3 (4.00-5.60); RDW 19.3 % (11.9-15.9); WHITE BLOOD COUNT 9.2 K/mm3 (4.0-10.0)
[2021-11-14 08:37] LABS: ALBUMIN 2.4 g/dl (3.4-5.0); BLOOD UREA NITROGEN 58.4 mg/dL (7-18); CALCIUM 8.7 mg/dL (8.5-10.1)
[2021-11-14 08:40] LABS: CREATININE 1.5 mg/dL (0.55-1.3)
[2021-11-14 08:42] LABS: BILIRUBIN,TOTAL 0.2 mg/dL (0.2-1); TOT PROT 6.6 g/dl (6.4-8.2)
[2021-11-14] MEDS: GABAPENTIN 100 MG CAPSULE PO SCH (09:18)
[2021-11-14] MEDS: amLODIPine BESYLATE 5 MG TABLET (FP) PO SCH (09:18)
[2021-11-14] MEDS: AMINO ACIDS/PROTEIN HYDROLYS 30 ML LIQUID.PKT PO SCH ×2 (09:18→16:37)
[2021-11-14] MEDS: MINERAL OIL/PET HY-PHL TOPICAL OINTMENT 454 GM JAR TP SCH ×2 (09:19→21:08)
[2021-11-14] MEDS: SILVER SULFADIAZINE 1% TOP CREAM 400 GM JAR TP SCH (09:19)
[2021-11-14] MEDS: LOSARTAN POTASSIUM 50 MG TABLET PO SCH (09:20)
[2021-11-14 12:44] LABS: ANISOCYTOSIS 2+; MACROCYTOSIS 1+; OVALOCYTE 1+; PLATELET ESTIMATE NORMAL; TARGET CELLS 1+
[2021-11-14] MEDS: DOCUSATE SODIUM 100 MG CAPSULE (FP) PO SCH (21:07)
[2021-11-15] MEDS ORDERED: MEROPENEM 1 GM VIAL (RESTRICTED TO ID) IVPB ONE ×2 (05:57→16:44)
[2021-11-15] MEDS ORDERED: DEXTROSE 5%-WATER 100 ML IVPB ONE ×2 (05:57→16:44)
[2021-11-15] MEDS: MEROPENEM 1 GM in DEXTROSE 5%-WATER 100 ML IVPB SCH ×2 (06:42→17:03)
[2021-11-15] MEDS: INSULIN SLIDING SCALE (NOVOLOG) 1 VIAL SQ SCH ×4 (06:50→21:58)
[2021-11-15 09:47] LABS: BLOOD UREA NITROGEN 62.5 mg/dL (7-18); CALCIUM 8.9 mg/dL (8.5-10.1)
[2021-11-15 09:48] LABS: CREATININE 1.7 mg/dL (0.55-1.3); MAGNESIUM 2.3 mg/dL (1.8-2.4)
[2021-11-15 09:49] LABS: PHOSPHOROUS 4.1 mg/dL (2.5-4.9)
[2021-11-15] MEDS: AMINO ACIDS/PROTEIN HYDROLYS 30 ML LIQUID.PKT PO SCH ×2 (10:57→17:03)
[2021-11-15] MEDS: GABAPENTIN 100 MG CAPSULE PO SCH (10:58)
[2021-11-15] MEDS: LOSARTAN POTASSIUM 50 MG TABLET PO SCH (10:58)
[2021-11-15] MEDS: amLODIPine BESYLATE 5 MG TABLET (FP) PO SCH (10:58)
[2021-11-15] MEDS: SILVER SULFADIAZINE 1% TOP CREAM 400 GM JAR TP SCH (12:44)
[2021-11-15] MEDS: MINERAL OIL/PET HY-PHL TOPICAL OINTMENT 454 GM JAR TP SCH ×2 (12:44→23:07)
[2021-11-15] MEDS: DOCUSATE SODIUM 100 MG CAPSULE (FP) PO SCH (21:58)
[2021-11-16] MEDS ORDERED: MEROPENEM 1 GM VIAL (RESTRICTED TO ID) IVPB ONE ×2 (05:17→16:51)
[2021-11-16] MEDS ORDERED: DEXTROSE 5%-WATER 100 ML IVPB ONE ×2 (05:17→16:52)
[2021-11-16] MEDS: MEROPENEM 1 GM in DEXTROSE 5%-WATER 100 ML IVPB SCH ×2 (05:36→17:14)
[2021-11-16] MEDS: INSULIN SLIDING SCALE (NOVOLOG) 1 VIAL SQ SCH ×4 (06:18→22:17)
[2021-11-16 09:03] LABS: BASO % 0.6 % (0-2.0); HEMATOCRIT 25.4 % (35.4-49); HEMOGLOBIN 8.1 GM/dL (11.7-16.9); LYMPH % 13.5 % (8-40); MCH 24.4 pg (25.7-33.7); MEAN CELL VOLUME 76.3 fl (80-96); MEAN PLT VOLUME 6.5 fl (7.5-11.1); MONO % 7.8 % (3.8-10.2); NEUT % 54.2 % (42.8-82.8); PLATELET COUNT 283 10^3/uL (134-434); RBC 3.33 M/mm3 (4.00-5.60); RDW 20.3 % (11.9-15.9); WHITE BLOOD COUNT 11.4 K/mm3 (4.0-10.0)
[2021-11-16 09:31] LABS: CALCIUM 8.8 mg/dL (8.5-10.1)
[2021-11-16 09:32] LABS: ALBUMIN 2.5 g/dl (3.4-5.0); BLOOD UREA NITROGEN 68.6 mg/dL (7-18)
[2021-11-16 09:35] LABS: CREATININE 1.6 mg/dL (0.55-1.3)
[2021-11-16 09:37] LABS: BILIRUBIN,TOTAL 0.4 mg/dL (0.2-1); TOT PROT 6.6 g/dl (6.4-8.2)
[2021-11-16] MEDS: AMINO ACIDS/PROTEIN HYDROLYS 30 ML LIQUID.PKT PO SCH ×2 (09:56→17:13)
[2021-11-16] MEDS: GABAPENTIN 100 MG CAPSULE PO SCH (09:56)
[2021-11-16] MEDS: LOSARTAN POTASSIUM 50 MG TABLET PO SCH (09:56)
[2021-11-16] MEDS: amLODIPine BESYLATE 5 MG TABLET (FP) PO SCH (09:56)
[2021-11-16] MEDS: MINERAL OIL/PET HY-PHL TOPICAL OINTMENT 454 GM JAR TP SCH ×2 (09:57→21:57)
[2021-11-16] MEDS: SILVER SULFADIAZINE 1% TOP CREAM 400 GM JAR TP SCH (09:57)
[2021-11-16 11:37] LABS: ANISOCYTOSIS 0; HELMET CELLS 0; HOWELL-JOLLY BODIES 0; MACROCYTOSIS 0; OVALOCYTE 0; PLATELET ESTIMATE NORMAL; ROULEAU 0; SICKELED CELLS 0; TARGET CELLS 0; TEAR DROP CELLS 0; TOXIC GRANULATION 0
[2021-11-16 12:03] LABS: EOS % 23.9 % (0-4.5)
[2021-11-16] MEDS: DOCUSATE SODIUM 100 MG CAPSULE (FP) PO SCH (21:56)
[2021-11-17] MEDS ORDERED: DEXTROSE 5%-WATER 100 ML IVPB ONE ×2 (05:44→16:52)
[2021-11-17] MEDS ORDERED: MEROPENEM 1 GM VIAL (RESTRICTED TO ID) IVPB ONE ×2 (05:44→16:52)
[2021-11-17] MEDS: MEROPENEM 1 GM in DEXTROSE 5%-WATER 100 ML IVPB SCH ×2 (06:23→17:18)
[2021-11-17] MEDS: INSULIN SLIDING SCALE (NOVOLOG) 1 VIAL SQ SCH ×4 (06:30→21:58)
[2021-11-17] MEDS: AMINO ACIDS/PROTEIN HYDROLYS 30 ML LIQUID.PKT PO SCH ×2 (10:16→17:18)
[2021-11-17] MEDS: GABAPENTIN 100 MG CAPSULE PO SCH (10:16)
[2021-11-17] MEDS: MINERAL OIL/PET HY-PHL TOPICAL OINTMENT 454 GM JAR TP SCH ×2 (10:16→21:53)
[2021-11-17] MEDS: LOSARTAN POTASSIUM 50 MG TABLET PO SCH (10:16)
[2021-11-17] MEDS: amLODIPine BESYLATE 5 MG TABLET (FP) PO SCH (10:16)
[2021-11-17] MEDS: SILVER SULFADIAZINE 1% TOP CREAM 400 GM JAR TP SCH (10:17)
[2021-11-17] MEDS: DOCUSATE SODIUM 100 MG CAPSULE (FP) PO SCH (21:53)
[2021-11-18] MEDS ORDERED: MEROPENEM 1 GM VIAL (RESTRICTED TO ID) IVPB ONE ×2 (05:49→17:35)
[2021-11-18] MEDS ORDERED: DEXTROSE 5%-WATER 100 ML IVPB ONE ×2 (05:49→17:35)
[2021-11-18] MEDS: MEROPENEM 1 GM in DEXTROSE 5%-WATER 100 ML IVPB SCH ×2 (06:27→17:47)
[2021-11-18] MEDS: INSULIN SLIDING SCALE (NOVOLOG) 1 VIAL SQ SCH ×4 (06:30→22:05)
[2021-11-18] MEDS: GABAPENTIN 100 MG CAPSULE PO SCH (11:08)
[2021-11-18] MEDS: AMINO ACIDS/PROTEIN HYDROLYS 30 ML LIQUID.PKT PO SCH ×2 (11:08→17:47)
[2021-11-18] MEDS: LOSARTAN POTASSIUM 50 MG TABLET PO SCH ×2 (11:08→11:55)
[2021-11-18] MEDS: amLODIPine BESYLATE 5 MG TABLET (FP) PO SCH ×2 (11:08→11:55)
[2021-11-18] MEDS: SILVER SULFADIAZINE 1% TOP CREAM 400 GM JAR TP SCH (17:46)
[2021-11-18] MEDS: MINERAL OIL/PET HY-PHL TOPICAL OINTMENT 454 GM JAR TP SCH ×2 (17:46→21:57)
[2021-11-18] MEDS: DOCUSATE SODIUM 100 MG CAPSULE (FP) PO SCH (21:57)
[2021-11-19] MEDS ORDERED: DEXTROSE 5%-WATER 100 ML IVPB ONE (05:05)
[2021-11-19] MEDS ORDERED: MEROPENEM 1 GM VIAL (RESTRICTED TO ID) IVPB ONE (05:05)
[2021-11-19] MEDS: MEROPENEM 1 GM in DEXTROSE 5%-WATER 100 ML IVPB SCH (05:38)
[2021-11-19] MEDS: INSULIN SLIDING SCALE (NOVOLOG) 1 VIAL SQ SCH ×2 (06:04→11:29)
[2021-11-19] MEDS: AMINO ACIDS/PROTEIN HYDROLYS 30 ML LIQUID.PKT PO SCH (09:31)
[2021-11-19] MEDS: amLODIPine BESYLATE 5 MG TABLET (FP) PO SCH (09:32)
[2021-11-19] MEDS: GABAPENTIN 100 MG CAPSULE PO SCH (09:32)
[2021-11-19] MEDS: LOSARTAN POTASSIUM 50 MG TABLET PO SCH (09:32)
[2021-11-19] MEDS ORDERED: VITAMIN B COMP W-C 1 EA TABLET (NEPHRO-VITE) PO SCH (10:00)
[2021-11-19] MEDS: MINERAL OIL/PET HY-PHL TOPICAL OINTMENT 454 GM JAR TP SCH (11:28)
[2021-11-19] MEDS: SILVER SULFADIAZINE 1% TOP CREAM 400 GM JAR TP SCH (11:28)
[2021-11-19 15:39] VITALS: BP 133/58; PULSE 73; TEMP 98.8
== END 2021-11-19 15:42 | disposition home health service (06) | DRG 689 ==
LOC: JER 17:31 → JERBED 19:37 → J7W 11-12 04:52
PROVIDERS: ADMIT Internal Medicine; ATTEND Internal Medicine
PROC: 30233N1 Transfusion of Nonautologous Red Blood Cells into Peripheral Vein, Percutaneous Approach (ICD-10-PCS; principal; 2021-11-15)
DX: N39.0 Urinary tract infection, site not specified (principal); R53.2 Functional quadriplegia; R31.0 Gross hematuria; E11.9 Type 2 diabetes mellitus without complications; I12.9 Hypertensive chronic kidney disease with stage 1 through stage 4 chronic kidney disease, or unspecified chronic kidney disease; Z93.3 Colostomy status; Z93.50 Unspecified cystostomy status; Z85.51 Personal history of malignant neoplasm of bladder; E87.5 Hyperkalemia; N18.30 Chronic kidney disease, stage 3 unspecified; D64.9 Anemia, unspecified
CPT/HCPCS: 36415; 36430; 80048; 80053; 81003; 82550; 82962; 83735; 84100; 84484; 85025; 85610; 85730; 86850; 86900; 86901; 86922; 87086; 87186; 93005; 93010; 99285-25; C9803; P9058; U0003; U0005

== ENCOUNTER 2022-05-01 10:39 | Inpatient (IN) | payer MEDICARE, OTHER ==
[2022-05-01 12:18] LABS: BASO % 1.3 % (0-2.0); EOS % 15.2 % (0-4.5); HEMATOCRIT 28.2 % (35.4-49); HEMOGLOBIN 8.9 GM/dL (11.7-16.9); LYMPH % 29.9 % (8-40); MCH 21.5 pg (25.7-33.7); MCHC 31.5 g/dl (32.0-35.9); MEAN CELL VOLUME 68.3 fl (80-96); MONO % 10.8 % (3.8-10.2); NEUT % 42.8 % (42.8-82.8); PLATELET COUNT 184 10^3/uL (134-434); RBC 4.13 M/mm3 (4.00-5.60); RDW 19.3 % (11.9-15.9); WHITE BLOOD COUNT 4.9 K/mm3 (4.0-10.0)
[2022-05-01 12:46] LABS: ALBUMIN 3.1 g/dl (3.4-5.0); BLOOD UREA NITROGEN 28.5 mg/dL (7-18); CALCIUM 8.7 mg/dL (8.5-10.1)
[2022-05-01 12:49] LABS: CREATININE 1.6 mg/dL (0.55-1.3)
[2022-05-01 12:51] LABS: BILIRUBIN,TOTAL 0.3 mg/dL (0.2-1); TOT PROT 7.1 g/dl (6.4-8.2)
[2022-05-01 12:53] LABS: EPI CELLS >36 /uL (0-25.1); HYALINE CASTS 81 /uL (0-3.1); PH,URINE 7.5 (5.0-8.0); URINE APPEARANCE TURBID; URINE BACTERIA >9,000 /uL (0-1359); URINE BILIRUBIN NEGATIVE (NEGATIVE); URINE COLOR YELLOW; URINE GLUCOSE (UA) NEGATIVE (NEGATIVE); URINE KETONE NEGATIVE (NEGATIVE); URINE LEUK ESTERASE 3+ (NEGATIVE); URINE NITRITE POSITIVE (NEGATIVE); URINE PROTEIN 3+ (NEGATIVE); URINE UROBILINOGEN 0.2 mg/dL (0.2-1.0); URINE WBC 10420 /uL (0-25.8)
[2022-05-01 13:11] LABS: ANISOCYTOSIS 2+; MACROCYTOSIS 0
[2022-05-01 13:23] LABS: URINE RBC 303.3 /uL (0-23.9); YEAST NEGATIVE (NEGATIVE)
[2022-05-01] MEDS ORDERED: MEROPENEM 1 GM in DEXTROSE 5%-WATER 100 ML IVPB ONE (14:38)
[2022-05-01] MEDS ORDERED: MEROPENEM 1 GM VIAL (RESTRICTED TO ID) IVPB ONE (14:57)
[2022-05-01] MEDS ORDERED: PATIENT'S OWN MEDICATION (NON-FORMULARY) (Brinzolamide/Brimonidine Tart [Simbrinza 1%-0.2% OD SCH (21:15)
[2022-05-01] MEDS: HEPARIN NA (PORCINE) 5,000 UNITS/ML 1ML VIAL SQ SCH (23:09)
[2022-05-01] MEDS: DOCUSATE SODIUM 100 MG CAPSULE (FP) PO SCH (23:09)
[2022-05-01] MEDS: BRIMONIDINE TARTRATE 0.2% OPHTHALMIC 5 ML BOTTLE OD SCH (23:58)
[2022-05-01] MEDS: DORZOLAMIDE 2% HCL OPHTHALMIC SOLUTION 10 ML BOTTLE OD SCH (23:58)
[2022-05-02] MEDS ORDERED: MEROPENEM 1 GM VIAL (RESTRICTED TO ID) IVPB ONE ×2 (01:40→15:02)
[2022-05-02] MEDS ORDERED: DEXTROSE 5%-WATER 100 ML IVPB ONE ×2 (01:41→15:02)
[2022-05-02] MEDS: MEROPENEM 1 GM in DEXTROSE 5%-WATER 100 ML IVPB SCH ×2 (02:20→15:17)
[2022-05-02] MEDS: BRIMONIDINE TARTRATE 0.2% OPHTHALMIC 5 ML BOTTLE OD SCH ×3 (06:33→21:12)
[2022-05-02] MEDS: DORZOLAMIDE 2% HCL OPHTHALMIC SOLUTION 10 ML BOTTLE OD SCH ×3 (06:33→21:12)
[2022-05-02 10:53] LABS: BASO % 0.9 % (0-2.0); EOS % 10.2 % (0-4.5); HEMATOCRIT 27.6 % (35.4-49); HEMOGLOBIN 8.6 GM/dL (11.7-16.9); LYMPH % 11.2 % (8-40); MCH 21.3 pg (25.7-33.7); MCHC 31.3 g/dl (32.0-35.9); MEAN CELL VOLUME 67.9 fl (80-96); MEAN PLT VOLUME 8.1 fl (7.5-11.1); MONO % 13.5 % (3.8-10.2); NEUT % 64.2 % (42.8-82.8); PLATELET COUNT 185 10^3/uL (134-434); RBC 4.06 M/mm3 (4.00-5.60); RDW 19.6 % (11.9-15.9); WHITE BLOOD COUNT 4.9 K/mm3 (4.0-10.0)
[2022-05-02] MEDS: amLODIPine BESYLATE 5 MG TABLET (FP) PO SCH (10:58)
[2022-05-02] MEDS: HEPARIN NA (PORCINE) 5,000 UNITS/ML 1ML VIAL SQ SCH ×2 (10:58→21:10)
[2022-05-02] MEDS: AMINO ACIDS/PROTEIN HYDROLYS 30 ML LIQUID.PKT PO SCH ×2 (10:58→18:23)
[2022-05-02] MEDS: GABAPENTIN 100 MG CAPSULE PO SCH (10:58)
[2022-05-02] MEDS: LOSARTAN POTASSIUM 50 MG TABLET PO SCH (10:58)
[2022-05-02 11:25] LABS: ALBUMIN 3.1 g/dl (3.4-5.0); BLOOD UREA NITROGEN 30.4 mg/dL (7-18)
[2022-05-02 11:27] LABS: CALCIUM 8.7 mg/dL (8.5-10.1)
[2022-05-02 11:29] LABS: BILIRUBIN,TOTAL 0.3 mg/dL (0.2-1)
[2022-05-02 11:31] LABS: CREATININE 1.7 mg/dL (0.55-1.3)
[2022-05-02] MEDS: DOCUSATE SODIUM 100 MG CAPSULE (FP) PO SCH (21:10)
[2022-05-03] MEDS ORDERED: MEROPENEM 1 GM VIAL (RESTRICTED TO ID) IVPB ONE ×2 (02:19→14:45)
[2022-05-03] MEDS ORDERED: DEXTROSE 5%-WATER 100 ML IVPB ONE ×2 (02:19→14:46)
[2022-05-03] MEDS: MEROPENEM 1 GM in DEXTROSE 5%-WATER 100 ML IVPB SCH ×2 (02:22→14:52)
[2022-05-03] MEDS: DORZOLAMIDE 2% HCL OPHTHALMIC SOLUTION 10 ML BOTTLE OD SCH ×3 (05:46→21:11)
[2022-05-03] MEDS: BRIMONIDINE TARTRATE 0.2% OPHTHALMIC 5 ML BOTTLE OD SCH ×3 (05:46→21:11)
[2022-05-03] MEDS: AMINO ACIDS/PROTEIN HYDROLYS 30 ML LIQUID.PKT PO SCH ×2 (08:20→16:39)
[2022-05-03 10:31] LABS: BASO % 0.8 % (0-2.0); EOS % 2.2 % (0-4.5); HEMOGLOBIN 8.8 GM/dL (11.7-16.9); MCH 21.5 pg (25.7-33.7); MCHC 31.6 g/dl (32.0-35.9); MEAN CELL VOLUME 68.1 fl (80-96); MEAN PLT VOLUME 8.1 fl (7.5-11.1); MONO % 10.2 % (3.8-10.2); NEUT % 77.8 % (42.8-82.8); PLATELET COUNT 164 10^3/uL (134-434); RBC 4.11 M/mm3 (4.00-5.60); RDW 19.7 % (11.9-15.9); WHITE BLOOD COUNT 6.4 K/mm3 (4.0-10.0)
[2022-05-03] MEDS: HEPARIN NA (PORCINE) 5,000 UNITS/ML 1ML VIAL SQ SCH ×2 (10:32→21:11)
[2022-05-03] MEDS: amLODIPine BESYLATE 5 MG TABLET (FP) PO SCH (10:32)
[2022-05-03] MEDS: GABAPENTIN 100 MG CAPSULE PO SCH (10:32)
[2022-05-03] MEDS: LOSARTAN POTASSIUM 50 MG TABLET PO SCH (10:32)
[2022-05-03 10:50] LABS: BLOOD UREA NITROGEN 40.2 mg/dL (7-18)
[2022-05-03 10:51] LABS: ALBUMIN 3.2 g/dl (3.4-5.0); CALCIUM 8.7 mg/dL (8.5-10.1)
[2022-05-03 10:54] LABS: CREATININE 1.7 mg/dL (0.55-1.3)
[2022-05-03 10:56] LABS: BILIRUBIN,TOTAL 0.2 mg/dL (0.2-1); TOT PROT 7.3 g/dl (6.4-8.2)
[2022-05-03] MEDS: ACETAMINOPHEN 325 MG TABLET (FP) PO PRN ×2 (12:43→21:11)
[2022-05-03] MEDS ORDERED: IBUPROFEN 400 MG TABLET (FP) PO ONE (15:34)
[2022-05-03] MEDS: DAPTOMYCIN 350 MG in SODIUM CHLORIDE 50 ML IVPB SCH (20:27)
[2022-05-03] MEDS: DOCUSATE SODIUM 100 MG CAPSULE (FP) PO SCH (21:10)
[2022-05-04] MEDS: MEROPENEM 1 GM in DEXTROSE 5%-WATER 100 ML IVPB SCH ×2 (02:28→14:06)
[2022-05-04] MEDS: DORZOLAMIDE 2% HCL OPHTHALMIC SOLUTION 10 ML BOTTLE OD SCH ×3 (06:08→21:30)
[2022-05-04] MEDS: BRIMONIDINE TARTRATE 0.2% OPHTHALMIC 5 ML BOTTLE OD SCH ×3 (06:08→21:30)
[2022-05-04] MEDS: LOSARTAN POTASSIUM 50 MG TABLET PO SCH (10:13)
[2022-05-04] MEDS: AMINO ACIDS/PROTEIN HYDROLYS 30 ML LIQUID.PKT PO SCH ×2 (10:13→16:44)
[2022-05-04] MEDS: HEPARIN NA (PORCINE) 5,000 UNITS/ML 1ML VIAL SQ SCH ×2 (10:14→21:30)
[2022-05-04] MEDS: GABAPENTIN 100 MG CAPSULE PO SCH (10:14)
[2022-05-04] MEDS: MULTIVITAMINS (DAILY MVI) TABLET (FP) PO SCH (10:14)
[2022-05-04] MEDS: amLODIPine BESYLATE 5 MG TABLET (FP) PO SCH (10:14)
[2022-05-04] MEDS ORDERED: DEXTROSE 5%-WATER 100 ML IVPB ONE (14:04)
[2022-05-04] MEDS ORDERED: MEROPENEM 1 GM VIAL (RESTRICTED TO ID) IVPB ONE (14:04)
[2022-05-04] MEDS: DOCUSATE SODIUM 100 MG CAPSULE (FP) PO SCH (21:30)
[2022-05-05] MEDS ORDERED: DEXTROSE 5%-WATER 100 ML IVPB ONE ×2 (01:59→14:41)
[2022-05-05] MEDS ORDERED: MEROPENEM 1 GM VIAL (RESTRICTED TO ID) IVPB ONE ×2 (01:59→14:41)
[2022-05-05] MEDS: MEROPENEM 1 GM in DEXTROSE 5%-WATER 100 ML IVPB SCH ×2 (02:09→14:49)
[2022-05-05] MEDS: BRIMONIDINE TARTRATE 0.2% OPHTHALMIC 5 ML BOTTLE OD SCH ×3 (05:39→21:42)
[2022-05-05] MEDS: DORZOLAMIDE 2% HCL OPHTHALMIC SOLUTION 10 ML BOTTLE OD SCH ×3 (05:39→21:42)
[2022-05-05] MEDS: AMINO ACIDS/PROTEIN HYDROLYS 30 ML LIQUID.PKT PO SCH ×2 (09:28→17:30)
[2022-05-05] MEDS: LOSARTAN POTASSIUM 50 MG TABLET PO SCH (09:29)
[2022-05-05] MEDS: HEPARIN NA (PORCINE) 5,000 UNITS/ML 1ML VIAL SQ SCH ×2 (09:29→21:42)
[2022-05-05] MEDS: amLODIPine BESYLATE 5 MG TABLET (FP) PO SCH (09:29)
[2022-05-05] MEDS: GABAPENTIN 100 MG CAPSULE PO SCH (09:29)
[2022-05-05] MEDS: MULTIVITAMINS (DAILY MVI) TABLET (FP) PO SCH (09:29)
[2022-05-05] MEDS: DAPTOMYCIN 350 MG in SODIUM CHLORIDE 50 ML IVPB SCH (09:30)
[2022-05-05] MEDS ORDERED: ONDANSETRON 4 MG/2 ML VIAL IVPUSH PRN (14:38)
[2022-05-05] MEDS: DOCUSATE SODIUM 100 MG CAPSULE (FP) PO SCH (21:42)
[2022-05-06] MEDS ORDERED: MEROPENEM 1 GM VIAL (RESTRICTED TO ID) IVPB ONE ×2 (02:16→15:54)
[2022-05-06] MEDS ORDERED: DEXTROSE 5%-WATER 100 ML IVPB ONE ×2 (02:17→15:54)
[2022-05-06] MEDS: MEROPENEM 1 GM in DEXTROSE 5%-WATER 100 ML IVPB SCH ×2 (02:23→15:57)
[2022-05-06] MEDS: BRIMONIDINE TARTRATE 0.2% OPHTHALMIC 5 ML BOTTLE OD SCH ×3 (05:16→21:07)
[2022-05-06] MEDS: DORZOLAMIDE 2% HCL OPHTHALMIC SOLUTION 10 ML BOTTLE OD SCH ×3 (05:17→21:07)
[2022-05-06] MEDS: HEPARIN NA (PORCINE) 5,000 UNITS/ML 1ML VIAL SQ SCH ×2 (10:20→21:08)
[2022-05-06] MEDS: GABAPENTIN 100 MG CAPSULE PO SCH (10:21)
[2022-05-06] MEDS: AMINO ACIDS/PROTEIN HYDROLYS 30 ML LIQUID.PKT PO SCH ×2 (10:21→17:23)
[2022-05-06] MEDS: LOSARTAN POTASSIUM 50 MG TABLET PO SCH (10:21)
[2022-05-06] MEDS: amLODIPine BESYLATE 5 MG TABLET (FP) PO SCH (10:21)
[2022-05-06] MEDS: MULTIVITAMINS (DAILY MVI) TABLET (FP) PO SCH (10:21)
[2022-05-06 15:02] VITALS: BMI 18.9
[2022-05-06] MEDS: PANTOPRAZOLE 40 MG TABLET PO SCH (15:57)
[2022-05-06] MEDS: DOCUSATE SODIUM 100 MG CAPSULE (FP) PO SCH (21:07)
[2022-05-07] MEDS ORDERED: DEXTROSE 5%-WATER 100 ML IVPB ONE ×2 (02:48→14:10)
[2022-05-07] MEDS ORDERED: MEROPENEM 1 GM VIAL (RESTRICTED TO ID) IVPB ONE ×2 (02:48→14:10)
[2022-05-07] MEDS: MEROPENEM 1 GM in DEXTROSE 5%-WATER 100 ML IVPB SCH ×2 (02:49→14:12)
[2022-05-07] MEDS: DORZOLAMIDE 2% HCL OPHTHALMIC SOLUTION 10 ML BOTTLE OD SCH ×3 (05:31→21:12)
[2022-05-07] MEDS: BRIMONIDINE TARTRATE 0.2% OPHTHALMIC 5 ML BOTTLE OD SCH ×3 (05:31→21:12)
[2022-05-07] MEDS: AMINO ACIDS/PROTEIN HYDROLYS 30 ML LIQUID.PKT PO SCH ×2 (07:44→16:44)
[2022-05-07] MEDS: MULTIVITAMINS (DAILY MVI) TABLET (FP) PO SCH (09:49)
[2022-05-07] MEDS: amLODIPine BESYLATE 5 MG TABLET (FP) PO SCH (09:49)
[2022-05-07] MEDS: PANTOPRAZOLE 40 MG TABLET PO SCH (09:49)
[2022-05-07] MEDS: DAPTOMYCIN 350 MG in SODIUM CHLORIDE 50 ML IVPB SCH (09:49)
[2022-05-07] MEDS: LOSARTAN POTASSIUM 50 MG TABLET PO SCH (09:49)
[2022-05-07] MEDS: GABAPENTIN 100 MG CAPSULE PO SCH (09:49)
[2022-05-07] MEDS: HEPARIN NA (PORCINE) 5,000 UNITS/ML 1ML VIAL SQ SCH ×2 (09:49→21:11)
[2022-05-07 09:51] LABS: BASO % 0.5 % (0-2.0); HEMATOCRIT 26.2 % (35.4-49); HEMOGLOBIN 8.2 GM/dL (11.7-16.9); LYMPH % 30.7 % (8-40); MCH 21.3 pg (25.7-33.7); MCHC 31.4 g/dl (32.0-35.9); MEAN CELL VOLUME 67.9 fl (80-96); MEAN PLT VOLUME 6.9 fl (7.5-11.1); NEUT % 38.8 % (42.8-82.8); PLATELET COUNT 227 10^3/uL (134-434); RBC 3.86 M/mm3 (4.00-5.60); RDW 18.9 % (11.9-15.9); WHITE BLOOD COUNT 3.9 K/mm3 (4.0-10.0)
[2022-05-07] MEDS: ACETAMINOPHEN 325 MG TABLET (FP) PO PRN (09:51)
[2022-05-07 10:21] LABS: ALBUMIN 2.7 g/dl (3.4-5.0); BLOOD UREA NITROGEN 57.7 mg/dL (7-18)
[2022-05-07 10:22] LABS: CALCIUM 8.8 mg/dL (8.5-10.1)
[2022-05-07 10:24] LABS: CREATININE 1.4 mg/dL (0.55-1.3)
[2022-05-07 10:25] LABS: TOT PROT 6.8 g/dl (6.4-8.2)
[2022-05-07 10:26] LABS: BILIRUBIN,TOTAL 0.2 mg/dL (0.2-1)
[2022-05-07 10:33] LABS: ANISOCYTOSIS 2+; MACROCYTOSIS 1+; OVALOCYTE 1+
[2022-05-07] MEDS: DOCUSATE SODIUM 100 MG CAPSULE (FP) PO SCH (21:11)
[2022-05-08] MEDS ORDERED: MEROPENEM 1 GM VIAL (RESTRICTED TO ID) IVPB ONE ×2 (01:50→14:03)
[2022-05-08] MEDS ORDERED: DEXTROSE 5%-WATER 100 ML IVPB ONE ×2 (01:50→14:03)
[2022-05-08] MEDS: MEROPENEM 1 GM in DEXTROSE 5%-WATER 100 ML IVPB SCH ×2 (02:18→14:15)
[2022-05-08] MEDS: DORZOLAMIDE 2% HCL OPHTHALMIC SOLUTION 10 ML BOTTLE OD SCH ×3 (06:13→22:00)
[2022-05-08] MEDS: BRIMONIDINE TARTRATE 0.2% OPHTHALMIC 5 ML BOTTLE OD SCH ×3 (06:13→22:00)
[2022-05-08] MEDS: AMINO ACIDS/PROTEIN HYDROLYS 30 ML LIQUID.PKT PO SCH ×2 (08:17→16:58)
[2022-05-08] MEDS: LOSARTAN POTASSIUM 50 MG TABLET PO SCH (10:11)
[2022-05-08] MEDS: HEPARIN NA (PORCINE) 5,000 UNITS/ML 1ML VIAL SQ SCH (10:11)
[2022-05-08] MEDS: PANTOPRAZOLE 40 MG TABLET PO SCH (10:11)
[2022-05-08] MEDS: amLODIPine BESYLATE 5 MG TABLET (FP) PO SCH (10:11)
[2022-05-08] MEDS: GABAPENTIN 100 MG CAPSULE PO SCH (10:11)
[2022-05-08] MEDS: MULTIVITAMINS (DAILY MVI) TABLET (FP) PO SCH (10:11)
[2022-05-08] MEDS: ACETAMINOPHEN 325 MG TABLET (FP) PO PRN (15:06)
[2022-05-08] MEDS: DOCUSATE SODIUM 100 MG CAPSULE (FP) PO SCH (22:00)
[2022-05-09] MEDS ORDERED: MEROPENEM 1 GM VIAL (RESTRICTED TO ID) IVPB ONE (01:06)
[2022-05-09] MEDS ORDERED: DEXTROSE 5%-WATER 100 ML IVPB ONE (01:06)
[2022-05-09] MEDS: BRIMONIDINE TARTRATE 0.2% OPHTHALMIC 5 ML BOTTLE OD SCH ×3 (06:01→21:21)
[2022-05-09] MEDS: DORZOLAMIDE 2% HCL OPHTHALMIC SOLUTION 10 ML BOTTLE OD SCH ×3 (06:01→21:21)
[2022-05-09] MEDS: AMINO ACIDS/PROTEIN HYDROLYS 30 ML LIQUID.PKT PO SCH ×2 (10:52→17:46)
[2022-05-09] MEDS: DAPTOMYCIN 350 MG in SODIUM CHLORIDE 50 ML IVPB SCH (10:52)
[2022-05-09] MEDS: GABAPENTIN 100 MG CAPSULE PO SCH (10:52)
[2022-05-09] MEDS: amLODIPine BESYLATE 5 MG TABLET (FP) PO SCH (10:52)
[2022-05-09] MEDS: PANTOPRAZOLE 40 MG TABLET PO SCH (10:52)
[2022-05-09] MEDS: LOSARTAN POTASSIUM 50 MG TABLET PO SCH (10:52)
[2022-05-09] MEDS: MULTIVITAMINS (DAILY MVI) TABLET (FP) PO SCH (10:53)
[2022-05-09] MEDS ORDERED: LIDOCAINE HCL/PF 2% SDV 5ML VIAL ONE (14:26)
[2022-05-09] MEDS ORDERED: PROPOFOL 20 ML ONE (14:27)
[2022-05-09] MEDS ORDERED: ONDANSETRON 4 MG/2 ML VIAL IVPUSH PRN ×2 (15:44→16:47)
[2022-05-09] MEDS ORDERED: PROMETHAZINE HCL 25 MG/1 ML VIAL IVPUSH PRN (16:47)
[2022-05-09] MEDS: LACTATED RINGERS SOLUTION 1,000 ML IV SCH ×2 (16:58→17:20)
[2022-05-09] MEDS: DOCUSATE SODIUM 100 MG CAPSULE (FP) PO SCH (21:21)
[2022-05-10] MEDS: ACETAMINOPHEN 325 MG TABLET (FP) PO PRN (02:18)
[2022-05-10] MEDS: DORZOLAMIDE 2% HCL OPHTHALMIC SOLUTION 10 ML BOTTLE OD SCH ×3 (06:17→21:28)
[2022-05-10] MEDS: BRIMONIDINE TARTRATE 0.2% OPHTHALMIC 5 ML BOTTLE OD SCH ×3 (06:17→21:27)
[2022-05-10] MEDS: LACTATED RINGERS SOLUTION 1,000 ML IV SCH ×2 (06:29→21:27)
[2022-05-10 10:22] LABS: BASO % 0.7 % (0-2.0); EOS % 10.7 % (0-4.5); HEMATOCRIT 24.2 % (35.4-49); HEMOGLOBIN 7.8 GM/dL (11.7-16.9); LYMPH % 29.3 % (8-40); MCH 21.6 pg (25.7-33.7); MCHC 32.1 g/dl (32.0-35.9); MEAN CELL VOLUME 67.5 fl (80-96); MEAN PLT VOLUME 6.7 fl (7.5-11.1); MONO % 15.3 % (3.8-10.2); PLATELET COUNT 310 10^3/uL (134-434); RBC 3.59 M/mm3 (4.00-5.60); RDW 18.5 % (11.9-15.9); WHITE BLOOD COUNT 4.5 K/mm3 (4.0-10.0)
[2022-05-10 10:56] LABS: CALCIUM 8.9 mg/dL (8.5-10.1)
[2022-05-10 10:57] LABS: ALBUMIN 2.5 g/dl (3.4-5.0); BLOOD UREA NITROGEN 80.1 mg/dL (7-18)
[2022-05-10 11:00] LABS: CREATININE 1.4 mg/dL (0.55-1.3)
[2022-05-10 11:02] LABS: BILIRUBIN,TOTAL 0.4 mg/dL (0.2-1); TOT PROT 6.3 g/dl (6.4-8.2)
[2022-05-10 11:16] LABS: ANISOCYTOSIS 3+; MACROCYTOSIS 0
[2022-05-10] MEDS: amLODIPine BESYLATE 5 MG TABLET (FP) PO SCH (11:30)
[2022-05-10] MEDS: LOSARTAN POTASSIUM 50 MG TABLET PO SCH (11:30)
[2022-05-10] MEDS: MULTIVITAMINS (DAILY MVI) TABLET (FP) PO SCH (11:30)
[2022-05-10] MEDS: PANTOPRAZOLE 40 MG TABLET PO SCH (11:30)
[2022-05-10] MEDS: GABAPENTIN 100 MG CAPSULE PO SCH (11:30)
[2022-05-10] MEDS: AMINO ACIDS/PROTEIN HYDROLYS 30 ML LIQUID.PKT PO SCH ×2 (11:30→18:38)
[2022-05-10] MEDS: DOCUSATE SODIUM 100 MG CAPSULE (FP) PO SCH (21:26)
[2022-05-11] MEDS: DORZOLAMIDE 2% HCL OPHTHALMIC SOLUTION 10 ML BOTTLE OD SCH ×3 (05:12→21:23)
[2022-05-11] MEDS: BRIMONIDINE TARTRATE 0.2% OPHTHALMIC 5 ML BOTTLE OD SCH ×3 (05:12→21:23)
[2022-05-11] MEDS: AMINO ACIDS/PROTEIN HYDROLYS 30 ML LIQUID.PKT PO SCH ×2 (08:13→16:29)
[2022-05-11 09:18] LABS: BASO % 0.4 % (0-2.0); EOS % 14.7 % (0-4.5); HEMATOCRIT 24.3 % (35.4-49); HEMOGLOBIN 7.9 GM/dL (11.7-16.9); LYMPH % 21.6 % (8-40); MCH 21.8 pg (25.7-33.7); MCHC 32.5 g/dl (32.0-35.9); MEAN CELL VOLUME 66.9 fl (80-96); MEAN PLT VOLUME 6.2 fl (7.5-11.1); MONO % 10.4 % (3.8-10.2); NEUT % 52.9 % (42.8-82.8); PLATELET COUNT 335 10^3/uL (134-434); RBC 3.63 M/mm3 (4.00-5.60); RDW 18.6 % (11.9-15.9); WHITE BLOOD COUNT 5.4 K/mm3 (4.0-10.0)
[2022-05-11 09:37] LABS: ALBUMIN 2.7 g/dl (3.4-5.0); CALCIUM 8.5 mg/dL (8.5-10.1)
[2022-05-11 09:41] LABS: CREATININE 1.3 mg/dL (0.55-1.3)
[2022-05-11 09:42] LABS: BILIRUBIN,TOTAL 0.2 mg/dL (0.2-1); TOT PROT 6.6 g/dl (6.4-8.2)
[2022-05-11] MEDS: GABAPENTIN 100 MG CAPSULE PO SCH (09:53)
[2022-05-11] MEDS: MULTIVITAMINS (DAILY MVI) TABLET (FP) PO SCH (09:53)
[2022-05-11] MEDS: amLODIPine BESYLATE 5 MG TABLET (FP) PO SCH (09:53)
[2022-05-11] MEDS: LOSARTAN POTASSIUM 50 MG TABLET PO SCH (09:54)
[2022-05-11] MEDS: PANTOPRAZOLE 40 MG TABLET PO SCH (09:54)
[2022-05-11] MEDS ORDERED: DAPTOMYCIN 350 MG in SODIUM CHLORIDE 50 ML IVPB SCH (10:00)
[2022-05-11] MEDS: BACITRACIN 15 GM TUBE TOPICAL OINTMENT TP SCH (15:05)
[2022-05-11] MEDS: ACETAMINOPHEN 325 MG TABLET (FP) PO PRN (16:28)
[2022-05-11] MEDS: DOCUSATE SODIUM 100 MG CAPSULE (FP) PO SCH (21:22)
[2022-05-12] MEDS: BRIMONIDINE TARTRATE 0.2% OPHTHALMIC 5 ML BOTTLE OD SCH ×3 (06:02→21:22)
[2022-05-12] MEDS: DORZOLAMIDE 2% HCL OPHTHALMIC SOLUTION 10 ML BOTTLE OD SCH ×3 (06:02→21:23)
[2022-05-12] MEDS: AMINO ACIDS/PROTEIN HYDROLYS 30 ML LIQUID.PKT PO SCH ×2 (08:35→17:26)
[2022-05-12] MEDS: LOSARTAN POTASSIUM 50 MG TABLET PO SCH (10:53)
[2022-05-12] MEDS: GABAPENTIN 100 MG CAPSULE PO SCH (10:53)
[2022-05-12] MEDS: PANTOPRAZOLE 40 MG TABLET PO SCH (10:53)
[2022-05-12] MEDS: MULTIVITAMINS (DAILY MVI) TABLET (FP) PO SCH (10:53)
[2022-05-12] MEDS: amLODIPine BESYLATE 5 MG TABLET (FP) PO SCH (10:53)
[2022-05-12] MEDS: BACITRACIN 15 GM TUBE TOPICAL OINTMENT TP SCH (10:54)
[2022-05-12] MEDS: DOCUSATE SODIUM 100 MG CAPSULE (FP) PO SCH (21:23)
[2022-05-13] MEDS: DORZOLAMIDE 2% HCL OPHTHALMIC SOLUTION 10 ML BOTTLE OD SCH ×3 (05:53→21:37)
[2022-05-13] MEDS: BRIMONIDINE TARTRATE 0.2% OPHTHALMIC 5 ML BOTTLE OD SCH ×3 (05:55→21:37)
[2022-05-13 06:33] VITALS: RESP 18
[2022-05-13] MEDS: GABAPENTIN 100 MG CAPSULE PO SCH (11:00)
[2022-05-13] MEDS: AMINO ACIDS/PROTEIN HYDROLYS 30 ML LIQUID.PKT PO SCH ×2 (11:00→18:30)
[2022-05-13] MEDS: amLODIPine BESYLATE 5 MG TABLET (FP) PO SCH (11:00)
[2022-05-13] MEDS: PANTOPRAZOLE 40 MG TABLET PO SCH (11:00)
[2022-05-13] MEDS: BACITRACIN 15 GM TUBE TOPICAL OINTMENT TP SCH (11:34)
[2022-05-13] MEDS: LOSARTAN POTASSIUM 50 MG TABLET PO SCH (11:35)
[2022-05-13] MEDS: MULTIVITAMINS (DAILY MVI) TABLET (FP) PO SCH (11:39)
[2022-05-13] MEDS: ACETAMINOPHEN 325 MG TABLET (FP) PO PRN (18:30)
[2022-05-13] MEDS: DOCUSATE SODIUM 100 MG CAPSULE (FP) PO SCH (21:37)
[2022-05-14] MEDS: DORZOLAMIDE 2% HCL OPHTHALMIC SOLUTION 10 ML BOTTLE OD SCH (05:36)
[2022-05-14] MEDS: BRIMONIDINE TARTRATE 0.2% OPHTHALMIC 5 ML BOTTLE OD SCH (05:36)
[2022-05-14 06:52] VITALS: BP 124/55; PULSE 78; TEMP 98.8
[2022-05-14] MEDS: AMINO ACIDS/PROTEIN HYDROLYS 30 ML LIQUID.PKT PO SCH (09:58)
[2022-05-14] MEDS: LOSARTAN POTASSIUM 50 MG TABLET PO SCH (10:00)
[2022-05-14] MEDS: PANTOPRAZOLE 40 MG TABLET PO SCH (10:00)
[2022-05-14] MEDS: amLODIPine BESYLATE 5 MG TABLET (FP) PO SCH (10:00)
[2022-05-14] MEDS: MULTIVITAMINS (DAILY MVI) TABLET (FP) PO SCH (10:00)
[2022-05-14] MEDS: GABAPENTIN 100 MG CAPSULE PO SCH (10:00)
[2022-05-14] MEDS: BACITRACIN 15 GM TUBE TOPICAL OINTMENT TP SCH (11:22)
== END 2022-05-14 12:20 | disposition home or self-care (01) | DRG 668 ==
LOC: JER 10:39 → JERBED 14:19 → J5S 21:38
PROVIDERS: ADMIT Internal Medicine; ATTEND Internal Medicine
PROC: 0TP97DZ Removal of Intraluminal Device from Ureter, Via Natural or Artificial Opening (ICD-10-PCS; 2022-05-09)
PROC: 0T767DZ Dilation of Right Ureter with Intraluminal Device, Via Natural or Artificial Opening (ICD-10-PCS; 2022-05-09)
PROC: 0TP97DZ Removal of Intraluminal Device from Ureter, Via Natural or Artificial Opening (ICD-10-PCS; 2022-05-09)
PROC: 0T777DZ Dilation of Left Ureter with Intraluminal Device, Via Natural or Artificial Opening (ICD-10-PCS; 2022-05-09)
PROC: 0TBB8ZX Excision of Bladder, Via Natural or Artificial Opening Endoscopic, Diagnostic (ICD-10-PCS; principal; 2022-05-09 15:00)
PROC: 0T5B8ZZ Destruction of Bladder, Via Natural or Artificial Opening Endoscopic (ICD-10-PCS; 2022-05-09 15:00)
DX: T83.511A Infection and inflammatory reaction due to indwelling urethral catheter, initial encounter (principal); R53.2 Functional quadriplegia; N17.9 Acute kidney failure, unspecified; N39.0 Urinary tract infection, site not specified; I10 Essential (primary) hypertension; E11.9 Type 2 diabetes mellitus without complications; N31.9 Neuromuscular dysfunction of bladder, unspecified; R30.0 Dysuria; N39.9 Disorder of urinary system, unspecified; R42 Dizziness and giddiness; D64.9 Anemia, unspecified; C67.9 Malignant neoplasm of bladder, unspecified; Y83.9 Surgical procedure, unspecified as the cause of abnormal reaction of the patient, or of later complication, without mention of misadventure at the time of the procedure
CPT/HCPCS: 36415; 71045-TC-FY; 76000-TC-FY; 76775-TC; 76856-TC; 80048; 80053; 81003; 82550; 82553; 82962; 83605; 85025; 87040; 87086; 87186; 88305-TC; 93005; 93010; 94010; 94760; 97162-GP; 99285-25; C9803-CS; J0878; J1644; U0003; U0005

== ENCOUNTER 2023-04-14 14:07 | Inpatient (IN) | payer MEDICARE, OTHER ==
[2023-04-14 16:09] LABS: BASO % 0.8 % (0-2.0); EOS % 9.2 % (0-4.5); HEMATOCRIT 23.6 % (35.4-49); HEMOGLOBIN 7.1 GM/dL (11.7-16.9); LYMPH % 24.6 % (8-40); MCHC 30.1 g/dl (32.0-35.9); MEAN CELL VOLUME 61.1 fl (80-96); MEAN PLT VOLUME 7.7 fl (7.5-11.1); MONO % 12.9 % (3.8-10.2); NEUT % 52.5 % (42.8-82.8); PLATELET COUNT 273 10^3/uL (134-434); RBC 3.87 M/mm3 (4.00-5.60); RDW 23.3 % (11.9-15.9); WHITE BLOOD COUNT 7.7 K/mm3 (4.0-10.0)
[2023-04-14 16:26] LABS: MCH 18.4 pg (25.7-33.7); POTASSIUM 4.7 mmol/L (3.5-5.1)
[2023-04-14 16:27] LABS: CALCIUM 9.2 mg/dL (8.5-10.1)
[2023-04-14 16:28] LABS: BLOOD UREA NITROGEN 56.6 mg/dL (7-18)
[2023-04-14 16:31] LABS: CREATININE 2.6 mg/dL (0.55-1.3)
[2023-04-14 17:21] LABS: PH,URINE 6.5 (5.0-8.0); URINE APPEARANCE TURBID; URINE BILIRUBIN 1+ (NEGATIVE); URINE COLOR RED; URINE GLUCOSE (UA) NEGATIVE (NEGATIVE); URINE KETONE NEGATIVE (NEGATIVE); URINE LEUK ESTERASE 2+ (NEGATIVE); URINE NITRITE POSITIVE (NEGATIVE); URINE PROTEIN 3+ (NEGATIVE); URINE UROBILINOGEN 0.2 mg/dL (0.2-1.0)
[2023-04-14 17:28] LABS: ANISOCYTOSIS 3+; MACROCYTOSIS 1+
[2023-04-14 17:29] LABS: OVALOCYTE 1+
[2023-04-14 17:36] LABS: EPI CELLS 19.7 /uL (0-25.1); HYALINE CASTS 2.07 /uL (0-3.1); URINE RBC 40514.7 /uL (0-23.9); YEAST NONE SEEN (NEGATIVE)
[2023-04-14] MEDS ORDERED: SODIUM CHLORIDE 1,000 ML IV STA (17:57)
[2023-04-14] MEDS ORDERED: ACETAMINOPHEN 1000 MG/100 ML BAG IVPB ONE (17:58)
[2023-04-14] MEDS ORDERED: CEFEPIME HCL/D5W 1 GM/50 ML BAG IVPB ONE (18:12)
[2023-04-14] MEDS ORDERED: ACETAMINOPHEN WITH CODEINE 300MG/30MG TABLET PO ONE (18:19)
[2023-04-14] MEDS ORDERED: ACETAMINOPHEN INJECTION 100 ML IVPB ONE (18:31)
[2023-04-14] MEDS ORDERED: hydrALAZINE HCL 20 MG/ML VIAL ONE (18:48)
[2023-04-14] MEDS ORDERED: hydrALAZINE HCL 20 MG/ML VIAL IVPUSH ONE (18:48)
[2023-04-14] MEDS ORDERED: ONDANSETRON 4 MG/2 ML VIAL IVPUSH ONE (19:32)
[2023-04-14] MEDS ORDERED: morphine CARPU-JECT 4 MG/1 ML DISP.SYRIN IVPUSH ONE (19:56)
[2023-04-14] MEDS ORDERED: CEFEPIME 1 GM/100 ML BAG IVPB ONE (19:57)
[2023-04-14] MEDS ORDERED: ONDANSETRON 4 MG/2 ML VIAL ONE (19:57)
[2023-04-14] MEDS ORDERED: PATIENT'S OWN MEDICATION (NON-FORMULARY) (Brinzolamide/Brimonidine Tart [Simbrinza 1%-0.2% OD SCH (22:00)
[2023-04-15 02:14] VITALS: BMI 20.2
[2023-04-15] MEDS ORDERED: ACETAMINOPHEN 1000 MG/100 ML BAG IVPB PRN (02:36)
[2023-04-15] MEDS ORDERED: SODIUM CHLORIDE 1,000 ML IV SCH (02:45)
[2023-04-15 09:13] LABS: MCHC 30.2 g/dl (32.0-35.9); MEAN PLT VOLUME 7.7 fl (7.5-11.1); PLATELET COUNT 251 10^3/uL (134-434); RBC 3.12 M/mm3 (4.00-5.60); RDW 24.1 % (11.9-15.9)
[2023-04-15 09:17] LABS: MCH 18.4 pg (25.7-33.7)
[2023-04-15 09:19] LABS: HEMOGLOBIN 5.7 GM/dL (11.7-16.9)
[2023-04-15 09:20] LABS: POTASSIUM 4.7 mmol/L (3.5-5.1); WHITE BLOOD COUNT 30.3 K/mm3 (4.0-10.0)
[2023-04-15 09:26] LABS: CALCIUM 8.7 mg/dL (8.5-10.1)
[2023-04-15 09:27] LABS: ALBUMIN 2.4 g/dl (3.4-5.0); BLOOD UREA NITROGEN 61.4 mg/dL (7-18)
[2023-04-15 09:30] LABS: CREATININE 3.1 mg/dL (0.55-1.3)
[2023-04-15 09:31] LABS: BILIRUBIN,TOTAL 0.2 mg/dL (0.2-1); TOT PROT 6.1 g/dl (6.4-8.2)
[2023-04-15] MEDS: DOCUSATE SODIUM 100 MG CAPSULE (FP) PO SCH ×2 (09:32→21:50)
[2023-04-15 09:57] LABS: ANISOCYTOSIS 3+; MACROCYTOSIS 0
[2023-04-15] MEDS ORDERED: LOSARTAN POTASSIUM 50 MG TABLET PO SCH (10:00)
[2023-04-15] MEDS ORDERED: amLODIPine BESYLATE 5 MG TABLET (FP) PO SCH (10:00)
[2023-04-15] MEDS: AMINO ACIDS/PROTEIN HYDROLYS 30 ML LIQUID.PKT PO SCH ×3 (10:57→18:57)
[2023-04-15] MEDS: MULTIVITAMINS (DAILY MVI) TABLET (FP) PO SCH (11:10)
[2023-04-15] MEDS: GABAPENTIN 100 MG CAPSULE PO SCH (11:10)
[2023-04-15] MEDS: SODIUM CHLORIDE 0.45% 1,000 ML IV SCH (13:40)
[2023-04-15] MEDS: AZTREONAM 1 GM in DEXTROSE 5%-WATER - 50 ML IVPB SCH ×2 (13:41→21:50)
[2023-04-16 10:21] LABS: BASO % 0.5 % (0-2.0); EOS % 2.3 % (0-4.5); HEMATOCRIT 28.3 % (35.4-49); HEMOGLOBIN 8.6 GM/dL (11.7-16.9); LYMPH % 7.1 % (8-40); MCH 21.8 pg (25.7-33.7); MCHC 30.3 g/dl (32.0-35.9); MEAN CELL VOLUME 71.8 fl (80-96); MEAN PLT VOLUME 7.9 fl (7.5-11.1); MONO % 6.4 % (3.8-10.2); NEUT % 83.7 % (42.8-82.8); PLATELET COUNT 236 10^3/uL (134-434); RBC 3.94 M/mm3 (4.00-5.60); RDW 28.3 % (11.9-15.9); WHITE BLOOD COUNT 14.6 K/mm3 (4.0-10.0)
[2023-04-16] MEDS: SODIUM CHLORIDE 0.45% 1,000 ML IV SCH ×2 (11:01→18:44)
[2023-04-16] MEDS: AZTREONAM 1 GM in DEXTROSE 5%-WATER - 50 ML IVPB SCH ×2 (11:01→22:38)
[2023-04-16] MEDS: MULTIVITAMINS (DAILY MVI) TABLET (FP) PO SCH (11:01)
[2023-04-16] MEDS: AMINO ACIDS/PROTEIN HYDROLYS 30 ML LIQUID.PKT PO SCH ×2 (11:01→18:44)
[2023-04-16 11:02] LABS: POTASSIUM 5.2 mmol/L (3.5-5.1)
[2023-04-16] MEDS: GABAPENTIN 100 MG CAPSULE PO SCH (11:02)
[2023-04-16 11:06] LABS: CALCIUM 8.3 mg/dL (8.5-10.1)
[2023-04-16 11:07] LABS: ALBUMIN 2.3 g/dl (3.4-5.0)
[2023-04-16 11:09] LABS: CREATININE 3.1 mg/dL (0.55-1.3)
[2023-04-16 11:11] LABS: BILIRUBIN,TOTAL 0.5 mg/dL (0.2-1)
[2023-04-16] MEDS: MINERAL OIL/PET HY-PHL TOPICAL OINTMENT 454 GM JAR TP SCH (13:18)
[2023-04-16] MEDS: COLLAGENASE CLOSTRIDIUM HIST. 30 GRAMS TUBE TP SCH (13:19)
[2023-04-16] MEDS: DOCUSATE SODIUM 100 MG CAPSULE (FP) PO SCH (22:38)
[2023-04-17] MEDS: AMINO ACIDS/PROTEIN HYDROLYS 30 ML LIQUID.PKT PO SCH ×2 (09:59→18:22)
[2023-04-17] MEDS: AZTREONAM 1 GM in DEXTROSE 5%-WATER - 50 ML IVPB SCH ×2 (09:59→22:28)
[2023-04-17] MEDS: MULTIVITAMINS (DAILY MVI) TABLET (FP) PO SCH (09:59)
[2023-04-17] MEDS: GABAPENTIN 100 MG CAPSULE PO SCH (09:59)
[2023-04-17] MEDS: MINERAL OIL/PET HY-PHL TOPICAL OINTMENT 454 GM JAR TP SCH (10:00)
[2023-04-17 10:53] LABS: POTASSIUM 4.6 mmol/L (3.5-5.1)
[2023-04-17 10:55] LABS: ALBUMIN 2.2 g/dl (3.4-5.0); BLOOD UREA NITROGEN 66.3 mg/dL (7-18); CALCIUM 8.7 mg/dL (8.5-10.1)
[2023-04-17 10:58] LABS: CREATININE 2.8 mg/dL (0.55-1.3)
[2023-04-17 11:00] LABS: BILIRUBIN,TOTAL 0.3 mg/dL (0.2-1)
[2023-04-17] MEDS: SODIUM CHLORIDE 0.45% 1,000 ML IV SCH (15:18)
[2023-04-17] MEDS: COLLAGENASE CLOSTRIDIUM HIST. 30 GRAMS TUBE TP SCH (19:27)
[2023-04-17] MEDS: DOCUSATE SODIUM 100 MG CAPSULE (FP) PO SCH (22:28)
[2023-04-17] MEDS ORDERED: hydrALAZINE HCL 20 MG/ML VIAL IVPUSH PRN (23:57)
[2023-04-18] MEDS ORDERED: LABETALOL HCL 200 MG TABLET (FP) PO SCH
[2023-04-18] MEDS: amLODIPine BESYLATE 5 MG TABLET (FP) PO SCH ×2 (00:16→10:23)
[2023-04-18 07:54] LABS: BASO % 0.5 % (0-2.0); EOS % 8.2 % (0-4.5); HEMATOCRIT 27.1 % (35.4-49); HEMOGLOBIN 8.6 GM/dL (11.7-16.9); LYMPH % 10.9 % (8-40); MCH 22.1 pg (25.7-33.7); MCHC 31.6 g/dl (32.0-35.9); MEAN CELL VOLUME 69.9 fl (80-96); MEAN PLT VOLUME 7.7 fl (7.5-11.1); MONO % 5.8 % (3.8-10.2); NEUT % 74.6 % (42.8-82.8); PLATELET COUNT 273 10^3/uL (134-434); RBC 3.87 M/mm3 (4.00-5.60); RDW 28.4 % (11.9-15.9); WHITE BLOOD COUNT 10.2 K/mm3 (4.0-10.0)
[2023-04-18 08:09] LABS: POTASSIUM 4.2 mmol/L (3.5-5.1)
[2023-04-18 08:19] LABS: CALCIUM 8.7 mg/dL (8.5-10.1)
[2023-04-18 08:23] LABS: CREATININE 2.6 mg/dL (0.55-1.3)
[2023-04-18 08:24] LABS: BILIRUBIN,TOTAL 0.5 mg/dL (0.2-1); TOT PROT 5.7 g/dl (6.4-8.2)
[2023-04-18 08:49] LABS: ANISOCYTOSIS 3+; MACROCYTOSIS 0
[2023-04-18] MEDS: AMINO ACIDS/PROTEIN HYDROLYS 30 ML LIQUID.PKT PO SCH ×2 (10:22→17:22)
[2023-04-18] MEDS: AZTREONAM 1 GM in DEXTROSE 5%-WATER - 50 ML IVPB SCH ×2 (10:23→21:36)
[2023-04-18] MEDS: GABAPENTIN 100 MG CAPSULE PO SCH (10:23)
[2023-04-18] MEDS: MINERAL OIL/PET HY-PHL TOPICAL OINTMENT 454 GM JAR TP SCH (10:23)
[2023-04-18] MEDS: MULTIVITAMINS (DAILY MVI) TABLET (FP) PO SCH (10:23)
[2023-04-18] MEDS: COLLAGENASE CLOSTRIDIUM HIST. 30 GRAMS TUBE TP SCH (10:24)
[2023-04-18] MEDS: SODIUM CHLORIDE 0.45% 1,000 ML IV SCH (20:35)
[2023-04-18] MEDS: DOCUSATE SODIUM 100 MG CAPSULE (FP) PO SCH (21:37)
[2023-04-19] MEDS: MINERAL OIL/PET HY-PHL TOPICAL OINTMENT 454 GM JAR TP SCH (09:18)
[2023-04-19] MEDS: MULTIVITAMINS (DAILY MVI) TABLET (FP) PO SCH (09:18)
[2023-04-19] MEDS: amLODIPine BESYLATE 5 MG TABLET (FP) PO SCH (09:18)
[2023-04-19] MEDS: AMINO ACIDS/PROTEIN HYDROLYS 30 ML LIQUID.PKT PO SCH ×2 (09:18→17:18)
[2023-04-19] MEDS: GABAPENTIN 100 MG CAPSULE PO SCH (09:19)
[2023-04-19] MEDS: AZTREONAM 1 GM in DEXTROSE 5%-WATER - 50 ML IVPB SCH ×2 (09:19→21:55)
[2023-04-19] MEDS: COLLAGENASE CLOSTRIDIUM HIST. 30 GRAMS TUBE TP SCH (09:20)
[2023-04-19 09:31] LABS: BASO % 0.6 % (0-2.0); HEMATOCRIT 29.7 % (35.4-49); HEMOGLOBIN 9.2 GM/dL (11.7-16.9); LYMPH % 11.8 % (8-40); MCHC 31.2 g/dl (32.0-35.9); MEAN CELL VOLUME 70.6 fl (80-96); MEAN PLT VOLUME 7.7 fl (7.5-11.1); MONO % 6.3 % (3.8-10.2); NEUT % 73.3 % (42.8-82.8); PLATELET COUNT 282 10^3/uL (134-434); RDW 28.2 % (11.9-15.9); WHITE BLOOD COUNT 10.2 K/mm3 (4.0-10.0)
[2023-04-19 09:34] LABS: CHLORIDE 111 mmol/L (98-107); POTASSIUM 4.3 mmol/L (3.5-5.1); SODIUM 141 mmol/L (136-145)
[2023-04-19 09:36] LABS: ALBUMIN 2.1 g/dl (3.4-5.0); ANION GAP 7 MMOL/L (8-16); BLOOD UREA NITROGEN 74.8 mg/dL (7-18); CALCIUM 8.5 mg/dL (8.5-10.1); CO2 23 mmol/L (21-32); GLUCOSE,RANDOM 86 mg/dL (74-106)
[2023-04-19 09:39] LABS: CREATININE 2.4 mg/dL (0.55-1.3); SGOT/AST 8 U/L (15-37); SGPT/ALT 6 U/L (13-61)
[2023-04-19 09:41] LABS: BILIRUBIN,TOTAL < 0.1 mg/dL (0.2-1)
[2023-04-19 09:42] LABS: ALK PHOS 62 U/L (45-117)
[2023-04-19] MEDS: SODIUM CHLORIDE 0.45% 1,000 ML IV SCH ×2 (10:20→17:15)
[2023-04-19] MEDS: DOCUSATE SODIUM 100 MG CAPSULE (FP) PO SCH (21:54)
[2023-04-20 09:27] LABS: BASO % 0.8 % (0-2.0); EOS % 11.9 % (0-4.5); HEMATOCRIT 28.3 % (35.4-49); HEMOGLOBIN 8.6 GM/dL (11.7-16.9); LYMPH % 12.4 % (8-40); MCH 21.8 pg (25.7-33.7); MCHC 30.3 g/dl (32.0-35.9); MEAN CELL VOLUME 71.9 fl (80-96); MEAN PLT VOLUME 7.9 fl (7.5-11.1); MONO % 6.8 % (3.8-10.2); NEUT % 68.1 % (42.8-82.8); PLATELET COUNT 290 10^3/uL (134-434); RBC 3.93 M/mm3 (4.00-5.60); RDW 28.3 % (11.9-15.9); WHITE BLOOD COUNT 10.2 K/mm3 (4.0-10.0)
[2023-04-20 09:43] LABS: CALCIUM 8.7 mg/dL (8.5-10.1); POTASSIUM 4.1 mmol/L (3.5-5.1)
[2023-04-20 09:44] LABS: BLOOD UREA NITROGEN 77.6 mg/dL (7-18)
[2023-04-20] MEDS: MULTIVITAMINS (DAILY MVI) TABLET (FP) PO SCH (09:52)
[2023-04-20] MEDS: amLODIPine BESYLATE 5 MG TABLET (FP) PO SCH (09:52)
[2023-04-20] MEDS: GABAPENTIN 100 MG CAPSULE PO SCH (09:52)
[2023-04-20] MEDS: AMINO ACIDS/PROTEIN HYDROLYS 30 ML LIQUID.PKT PO SCH ×2 (09:53→17:41)
[2023-04-20] MEDS: MINERAL OIL/PET HY-PHL TOPICAL OINTMENT 454 GM JAR TP SCH (09:53)
[2023-04-20] MEDS: AZTREONAM 1 GM in DEXTROSE 5%-WATER - 50 ML IVPB SCH ×2 (09:53→22:07)
[2023-04-20] MEDS: COLLAGENASE CLOSTRIDIUM HIST. 30 GRAMS TUBE TP SCH (09:53)
[2023-04-20] MEDS: SODIUM CHLORIDE 0.45% 1,000 ML IV SCH (14:55)
[2023-04-20] MEDS: DOCUSATE SODIUM 100 MG CAPSULE (FP) PO SCH (22:07)
[2023-04-21 07:52] LABS: BASO % 0.8 % (0-2.0); EOS % 11.3 % (0-4.5); HEMATOCRIT 27.8 % (35.4-49); HEMOGLOBIN 8.9 GM/dL (11.7-16.9); LYMPH % 10.7 % (8-40); MCH 22.3 pg (25.7-33.7); MCHC 31.9 g/dl (32.0-35.9); MEAN PLT VOLUME 7.7 fl (7.5-11.1); MONO % 5.6 % (3.8-10.2); NEUT % 71.6 % (42.8-82.8); PLATELET COUNT 303 10^3/uL (134-434); RBC 3.98 M/mm3 (4.00-5.60); RDW 28.1 % (11.9-15.9); WHITE BLOOD COUNT 10.7 K/mm3 (4.0-10.0)
[2023-04-21 08:13] LABS: POTASSIUM 4.3 mmol/L (3.5-5.1)
[2023-04-21 08:21] LABS: BLOOD UREA NITROGEN 73.2 mg/dL (7-18); CALCIUM 8.4 mg/dL (8.5-10.1)
[2023-04-21 08:22] LABS: ALBUMIN 2.1 g/dl (3.4-5.0)
[2023-04-21 08:26] LABS: BILIRUBIN,TOTAL 0.2 mg/dL (0.2-1)
[2023-04-21] MEDS: MINERAL OIL/PET HY-PHL TOPICAL OINTMENT 454 GM JAR TP SCH (09:52)
[2023-04-21] MEDS: amLODIPine BESYLATE 5 MG TABLET (FP) PO SCH (09:52)
[2023-04-21] MEDS: GABAPENTIN 100 MG CAPSULE PO SCH (09:52)
[2023-04-21] MEDS: AZTREONAM 1 GM in DEXTROSE 5%-WATER - 50 ML IVPB SCH ×2 (09:52→22:02)
[2023-04-21] MEDS: MULTIVITAMINS (DAILY MVI) TABLET (FP) PO SCH (09:52)
[2023-04-21] MEDS: AMINO ACIDS/PROTEIN HYDROLYS 30 ML LIQUID.PKT PO SCH ×2 (09:52→18:20)
[2023-04-21] MEDS: COLLAGENASE CLOSTRIDIUM HIST. 30 GRAMS TUBE TP SCH (09:54)
[2023-04-21] MEDS: SODIUM CHLORIDE 0.45% 1,000 ML IV SCH (16:34)
[2023-04-21] MEDS: DOCUSATE SODIUM 100 MG CAPSULE (FP) PO SCH (22:02)
[2023-04-22] MEDS ORDERED: IOHEXOL 300 MG/ML INFUS..BTL IJ ONE
[2023-04-22] MEDS ORDERED: PROMETHAZINE HCL 25 MG/1 ML VIAL IVPB PRN ×2 (10:33→13:44)
[2023-04-22] MEDS ORDERED: ONDANSETRON 4 MG/2 ML VIAL IVPUSH PRN ×2 (10:33→13:44)
[2023-04-22] MEDS: amLODIPine BESYLATE 5 MG TABLET (FP) PO SCH (10:37)
[2023-04-22] MEDS: AMINO ACIDS/PROTEIN HYDROLYS 30 ML LIQUID.PKT PO SCH ×2 (10:37→17:55)
[2023-04-22] MEDS: AZTREONAM 1 GM in DEXTROSE 5%-WATER - 50 ML IVPB SCH (10:38)
[2023-04-22] MEDS: MINERAL OIL/PET HY-PHL TOPICAL OINTMENT 454 GM JAR TP SCH (10:44)
[2023-04-22] MEDS: MULTIVITAMINS (DAILY MVI) TABLET (FP) PO SCH (10:45)
[2023-04-22] MEDS: GABAPENTIN 100 MG CAPSULE PO SCH (10:45)
[2023-04-22] MEDS ORDERED: LACTATED RINGERS SOLUTION 1,000 ML IV SCH (10:45)
[2023-04-22] MEDS ORDERED: PROPOFOL 20 ML ONE (11:36)
[2023-04-22] MEDS ORDERED: LIDOCAINE HCL/PF 2% SDV 5ML VIAL ONE (11:36)
[2023-04-22] MEDS ORDERED: DEXAMETHASONE SOD PHOSPHATE 4 MG/1 ML VIAL ONE (11:42)
[2023-04-22] MEDS ORDERED: ONDANSETRON 4 MG/2 ML VIAL ONE (11:42)
[2023-04-22] MEDS ORDERED: METOPROLOL TARTRATE 5 MG/5 ML VIAL ONE (12:17)
[2023-04-22] MEDS ORDERED: hydrALAZINE HCL 20 MG/ML VIAL ONE (12:52)
[2023-04-22] MEDS ORDERED: hydrALAZINE HCL 20 MG/ML VIAL IVPUSH PRN (13:44)
[2023-04-22 14:05] LABS: INR 1.05 (0.83-1.09); PROTHROMBIN TIME (PATIENT) 12.2 SEC (9.7-13.0)
[2023-04-22] MEDS: SODIUM CHLORIDE 0.45% 1,000 ML IV SCH ×2 (14:55→18:23)
[2023-04-22] MEDS: COLLAGENASE CLOSTRIDIUM HIST. 30 GRAMS TUBE TP SCH (17:55)
[2023-04-22] MEDS: DOCUSATE SODIUM 100 MG CAPSULE (FP) PO SCH (22:01)
[2023-04-23] MEDS: AMINO ACIDS/PROTEIN HYDROLYS 30 ML LIQUID.PKT PO SCH ×2 (10:14→17:07)
[2023-04-23] MEDS: MINERAL OIL/PET HY-PHL TOPICAL OINTMENT 454 GM JAR TP SCH (10:15)
[2023-04-23] MEDS: MULTIVITAMINS (DAILY MVI) TABLET (FP) PO SCH (10:18)
[2023-04-23] MEDS: amLODIPine BESYLATE 5 MG TABLET (FP) PO SCH (10:18)
[2023-04-23] MEDS: GABAPENTIN 100 MG CAPSULE PO SCH (10:18)
[2023-04-23] MEDS: COLLAGENASE CLOSTRIDIUM HIST. 30 GRAMS TUBE TP SCH (10:19)
[2023-04-23 12:58] LABS: BASO % 0.3 % (0-2.0); EOS % 0.2 % (0-4.5); HEMATOCRIT 26.2 % (35.4-49); HEMOGLOBIN 7.8 GM/dL (11.7-16.9); LYMPH % 6.5 % (8-40); MCH 21.6 pg (25.7-33.7); MCHC 29.7 g/dl (32.0-35.9); MEAN CELL VOLUME 72.9 fl (80-96); MEAN PLT VOLUME 5.9 fl (7.5-11.1); MONO % 3.9 % (3.8-10.2); NEUT % 89.1 % (42.8-82.8); PLATELET COUNT 333 10^3/uL (134-434); RDW 29.4 % (11.9-15.9); WHITE BLOOD COUNT 14.3 K/mm3 (4.0-10.0)
[2023-04-23 13:09] LABS: POTASSIUM 4.2 mmol/L (3.5-5.1)
[2023-04-23 13:11] LABS: CALCIUM 8.7 mg/dL (8.5-10.1)
[2023-04-23 13:12] LABS: BLOOD UREA NITROGEN 68.2 mg/dL (7-18)
[2023-04-23 13:15] LABS: CREATININE 2.2 mg/dL (0.55-1.3)
[2023-04-23 13:17] LABS: BILIRUBIN,TOTAL 0.1 mg/dL (0.2-1); TOT PROT 5.8 g/dl (6.4-8.2)
[2023-04-23 13:49] LABS: ANISOCYTOSIS 2+; MACROCYTOSIS 1+
[2023-04-23] MEDS: SODIUM CHLORIDE 0.45% 1,000 ML IV SCH (20:49)
[2023-04-23] MEDS: DOCUSATE SODIUM 100 MG CAPSULE (FP) PO SCH (21:45)
[2023-04-24] MEDS: SODIUM CHLORIDE 0.45% 1,000 ML IV SCH ×2 (01:02→17:25)
[2023-04-24] MEDS: AMINO ACIDS/PROTEIN HYDROLYS 30 ML LIQUID.PKT PO SCH ×2 (08:49→17:41)
[2023-04-24 09:48] LABS: HEMATOCRIT 22.9 % (35.4-49); HEMOGLOBIN 7.1 GM/dL (11.7-16.9); MCH 22.1 pg (25.7-33.7); MCHC 30.8 g/dl (32.0-35.9); MEAN CELL VOLUME 71.7 fl (80-96); PLATELET COUNT 325 10^3/uL (134-434); RDW 29.3 % (11.9-15.9); WHITE BLOOD COUNT 14.5 K/mm3 (4.0-10.0)
[2023-04-24 10:08] LABS: CALCIUM 8.5 mg/dL (8.5-10.1)
[2023-04-24 10:09] LABS: BLOOD UREA NITROGEN 65.2 mg/dL (7-18)
[2023-04-24 10:13] LABS: BILIRUBIN,TOTAL 0.2 mg/dL (0.2-1); TOT PROT 5.9 g/dl (6.4-8.2)
[2023-04-24] MEDS: GABAPENTIN 100 MG CAPSULE PO SCH (10:52)
[2023-04-24] MEDS: amLODIPine BESYLATE 5 MG TABLET (FP) PO SCH (10:52)
[2023-04-24] MEDS: MULTIVITAMINS (DAILY MVI) TABLET (FP) PO SCH (10:52)
[2023-04-24] MEDS: MINERAL OIL/PET HY-PHL TOPICAL OINTMENT 454 GM JAR TP SCH (11:45)
[2023-04-24] MEDS: COLLAGENASE CLOSTRIDIUM HIST. 30 GRAMS TUBE TP SCH (11:46)
[2023-04-24] MEDS: DOCUSATE SODIUM 100 MG CAPSULE (FP) PO SCH (22:18)
[2023-04-25] MEDS: amLODIPine BESYLATE 5 MG TABLET (FP) PO SCH (10:01)
[2023-04-25] MEDS: MULTIVITAMINS (DAILY MVI) TABLET (FP) PO SCH (10:01)
[2023-04-25] MEDS: AMINO ACIDS/PROTEIN HYDROLYS 30 ML LIQUID.PKT PO SCH ×2 (10:01→17:55)
[2023-04-25] MEDS: GABAPENTIN 100 MG CAPSULE PO SCH (10:01)
[2023-04-25] MEDS: MINERAL OIL/PET HY-PHL TOPICAL OINTMENT 454 GM JAR TP SCH (10:02)
[2023-04-25] MEDS: COLLAGENASE CLOSTRIDIUM HIST. 30 GRAMS TUBE TP SCH (10:03)
[2023-04-25] MEDS: SODIUM CHLORIDE 0.45% 1,000 ML IV SCH (17:54)
[2023-04-25] MEDS: DOCUSATE SODIUM 100 MG CAPSULE (FP) PO SCH (22:16)
[2023-04-26 08:53] LABS: BASO % 0.5 % (0-2.0); EOS % 5.4 % (0-4.5); HEMATOCRIT 23.4 % (35.4-49); HEMOGLOBIN 7.1 GM/dL (11.7-16.9); LYMPH % 8.4 % (8-40); MCH 22.1 pg (25.7-33.7); MCHC 30.3 g/dl (32.0-35.9); MEAN CELL VOLUME 72.9 fl (80-96); MEAN PLT VOLUME 6.5 fl (7.5-11.1); MONO % 7.6 % (3.8-10.2); NEUT % 78.1 % (42.8-82.8); PLATELET COUNT 398 10^3/uL (134-434); RBC 3.21 M/mm3 (4.00-5.60); WHITE BLOOD COUNT 17.8 K/mm3 (4.0-10.0)
[2023-04-26] MEDS: AMINO ACIDS/PROTEIN HYDROLYS 30 ML LIQUID.PKT PO SCH ×2 (09:11→17:16)
[2023-04-26] MEDS: amLODIPine BESYLATE 5 MG TABLET (FP) PO SCH (09:11)
[2023-04-26] MEDS: MULTIVITAMINS (DAILY MVI) TABLET (FP) PO SCH (09:11)
[2023-04-26] MEDS: GABAPENTIN 100 MG CAPSULE PO SCH (09:11)
[2023-04-26] MEDS: COLLAGENASE CLOSTRIDIUM HIST. 30 GRAMS TUBE TP SCH (09:12)
[2023-04-26] MEDS: MINERAL OIL/PET HY-PHL TOPICAL OINTMENT 454 GM JAR TP SCH (09:13)
[2023-04-26 10:23] LABS: POTASSIUM 3.8 mmol/L (3.5-5.1)
[2023-04-26 10:25] LABS: CALCIUM 8.5 mg/dL (8.5-10.1)
[2023-04-26 10:26] LABS: ALBUMIN 1.8 g/dl (3.4-5.0); BLOOD UREA NITROGEN 63.1 mg/dL (7-18)
[2023-04-26 10:29] LABS: CREATININE 1.8 mg/dL (0.55-1.3)
[2023-04-26 10:30] LABS: BILIRUBIN,TOTAL 0.2 mg/dL (0.2-1); TOT PROT 5.7 g/dl (6.4-8.2)
[2023-04-26] MEDS: AZTREONAM 1 GM in DEXTROSE 5%-WATER - 50 ML IVPB SCH ×2 (13:09→22:01)
[2023-04-26] MEDS: SODIUM CHLORIDE 0.45% 1,000 ML IV SCH (13:10)
[2023-04-26] MEDS: DAPTOMYCIN 300 MG in SODIUM CHLORIDE 50 ML IVPB SCH (14:27)
[2023-04-26] MEDS: DOCUSATE SODIUM 100 MG CAPSULE (FP) PO SCH (22:01)
[2023-04-26] MEDS ORDERED: FUROSEMIDE 40 MG/4 ML INJECTABLE VIAL IVPUSH ONE (23:46)
[2023-04-27 00:26] LABS: ARTERIAL BLD GAS O2 SATURATION 84.4 % (95-98); ARTERIAL BLOOD GAS BASE EXCESS -6.6 mmol/L (-2-2); ARTERIAL BLOOD GAS pH 7.149 (7.350-7.450)
[2023-04-27 03:34] LABS: ARTERIAL BLOOD GAS PO2 188.5 mmHg (80-100)
[2023-04-27 03:36] LABS: VENT MODE S/T; VENT RATE 15
[2023-04-27 03:39] LABS: ARTERIAL BLOOD GAS pH 7.194 (7.350-7.450)
[2023-04-27 08:28] LABS: BASO % 0.3 % (0-2.0); EOS % 4.2 % (0-4.5); HEMATOCRIT 23.3 % (35.4-49); HEMOGLOBIN 7.2 GM/dL (11.7-16.9); LYMPH % 6.3 % (8-40); MCH 22.4 pg (25.7-33.7); MCHC 30.8 g/dl (32.0-35.9); MEAN CELL VOLUME 72.9 fl (80-96); MEAN PLT VOLUME 6.1 fl (7.5-11.1); MONO % 7.6 % (3.8-10.2); NEUT % 81.6 % (42.8-82.8); PLATELET COUNT 465 10^3/uL (134-434); RDW 29.7 % (11.9-15.9)
[2023-04-27 08:46] LABS: POTASSIUM 3.9 mmol/L (3.5-5.1)
[2023-04-27 08:49] LABS: CALCIUM 8.4 mg/dL (8.5-10.1)
[2023-04-27 08:50] LABS: ALBUMIN 1.9 g/dl (3.4-5.0); BLOOD UREA NITROGEN 67.8 mg/dL (7-18)
[2023-04-27 08:53] LABS: BILIRUBIN,TOTAL 0.2 mg/dL (0.2-1); CREATININE 1.8 mg/dL (0.55-1.3)
[2023-04-27 08:55] LABS: TOT PROT 5.9 g/dl (6.4-8.2)
[2023-04-27 09:27] LABS: ANISOCYTOSIS 0; MACROCYTOSIS 0; OVALOCYTE 1+
[2023-04-27] MEDS: AMINO ACIDS/PROTEIN HYDROLYS 30 ML LIQUID.PKT PO SCH ×2 (12:30→17:48)
[2023-04-27] MEDS: GABAPENTIN 100 MG CAPSULE PO SCH (12:31)
[2023-04-27] MEDS: amLODIPine BESYLATE 5 MG TABLET (FP) PO SCH (12:32)
[2023-04-27] MEDS: MULTIVITAMINS (DAILY MVI) TABLET (FP) PO SCH (12:32)
[2023-04-27] MEDS: COLLAGENASE CLOSTRIDIUM HIST. 30 GRAMS TUBE TP SCH (12:37)
[2023-04-27] MEDS: MINERAL OIL/PET HY-PHL TOPICAL OINTMENT 454 GM JAR TP SCH (12:38)
[2023-04-27] MEDS: AZTREONAM 1 GM in DEXTROSE 5%-WATER - 50 ML IVPB SCH ×2 (12:38→21:01)
[2023-04-27 13:29] LABS: ARTERIAL BLOOD GAS BASE EXCESS -5.9 mmol/L (-2-2); ARTERIAL BLOOD GAS PO2 132.3 mmHg (80-100); ARTERIAL BLOOD GAS pH 7.202 (7.350-7.450)
[2023-04-27 13:30] LABS: ALLENS TEST POSITIVE
[2023-04-27 13:31] LABS: VENT RATE 6
[2023-04-27] MEDS: MUPIROCIN 2% TOPICAL OINTMENT FOR DECOLONIZATION NS SCH ×2 (16:14→21:01)
[2023-04-27] MEDS ORDERED: ACETAMINOPHEN 1000 MG/100 ML BAG IVPB STA (20:06)
[2023-04-27] MEDS: DOCUSATE SODIUM 100 MG CAPSULE (FP) PO SCH (21:02)
[2023-04-27] MEDS ORDERED: CHLORHEXIDINE GLUCONATE 4% CLEANSER FOR DECOLONIZATION TP SCH (22:00)
[2023-04-28] MEDS: AMINO ACIDS/PROTEIN HYDROLYS 30 ML LIQUID.PKT PO SCH (08:44)
[2023-04-28] MEDS: AZTREONAM 1 GM in DEXTROSE 5%-WATER - 50 ML IVPB SCH ×2 (09:12→21:48)
[2023-04-28] MEDS: MUPIROCIN 2% TOPICAL OINTMENT FOR DECOLONIZATION NS SCH (10:06)
[2023-04-28] MEDS: MINERAL OIL/PET HY-PHL TOPICAL OINTMENT 454 GM JAR TP SCH (10:07)
[2023-04-28] MEDS: MULTIVITAMINS (DAILY MVI) TABLET (FP) PO SCH (11:33)
[2023-04-28] MEDS: COLLAGENASE CLOSTRIDIUM HIST. 30 GRAMS TUBE TP SCH (11:33)
[2023-04-28] MEDS: amLODIPine BESYLATE 5 MG TABLET (FP) PO SCH (11:34)
[2023-04-28] MEDS: GABAPENTIN 100 MG CAPSULE PO SCH (11:34)
[2023-04-28] MEDS: ACETYLCYSTEINE 20% 200MG/ML 4 ML VIAL *FOR ORAL / INH USE ONLY NEB SCH ×3 (12:00→20:56)
[2023-04-28] MEDS ORDERED: ACETYLCYSTEINE 20% 200MG/ML 30 ML VIAL *FOR ORAL / INH USE ONLY NEB SCH ×2 (12:00)
[2023-04-28] MEDS: ALBUTEROL SO4 0.083% IH SOL 2.5 MG/3 ML VIAL.NEB. NEB SCH ×3 (12:00→20:57)
[2023-04-28] MEDS ORDERED: ALBUTEROL SO4 2.5/IPRATROPIUM 0.5 INH SOL 3 ML VIAL.NEB. NEB SCH (12:00)
[2023-04-28] MEDS ORDERED: ALBUTEROL SULFATE 0.021% (0.63 MG/3 ML) VIAL.NEB NEB SCH (12:00)
[2023-04-28 12:33] LABS: BASO % 0.3 % (0-2.0); EOS % 1.4 % (0-4.5); HEMATOCRIT 24.9 % (35.4-49); HEMOGLOBIN 7.4 GM/dL (11.7-16.9); LYMPH % 4.5 % (8-40); MCHC 29.7 g/dl (32.0-35.9); MEAN PLT VOLUME 6.1 fl (7.5-11.1); MONO % 6.4 % (3.8-10.2); NEUT % 87.4 % (42.8-82.8); PLATELET COUNT 458 10^3/uL (134-434); RBC 3.36 M/mm3 (4.00-5.60); RDW 28.9 % (11.9-15.9); WHITE BLOOD COUNT 18.2 K/mm3 (4.0-10.0)
[2023-04-28 13:12] LABS: ALBUMIN 1.9 g/dl (3.4-5.0); BLOOD UREA NITROGEN 66.7 mg/dL (7-18); CALCIUM 8.9 mg/dL (8.5-10.1); MAGNESIUM 1.7 mg/dL (1.8-2.4)
[2023-04-28 13:15] LABS: CREATININE 1.9 mg/dL (0.55-1.3); PHOSPHOROUS 4.1 mg/dL (2.5-4.9)
[2023-04-28 13:17] LABS: BILIRUBIN,TOTAL 0.1 mg/dL (0.2-1); TOT PROT 5.9 g/dl (6.4-8.2)
[2023-04-28] MEDS: DAPTOMYCIN 300 MG in SODIUM CHLORIDE 50 ML IVPB SCH (16:32)
[2023-04-28] MEDS ORDERED: hydrALAZINE HCL 20 MG/ML VIAL IVPUSH PRN (17:51)
[2023-04-28] MEDS: DOCUSATE SODIUM 100 MG CAPSULE (FP) PO SCH (21:48)
[2023-04-28] MEDS ORDERED: CHLORHEXIDINE GLUCONATE 4% CLEANSER FOR DECOLONIZATION TP SCH (22:00)
[2023-04-28] MEDS ORDERED: MUPIROCIN 2% TOPICAL OINTMENT FOR DECOLONIZATION NS SCH (22:00)
[2023-04-29] MEDS: ACETYLCYSTEINE 20% 200MG/ML 4 ML VIAL *FOR ORAL / INH USE ONLY NEB SCH ×4 (08:20→20:34)
[2023-04-29] MEDS: ALBUTEROL SO4 0.083% IH SOL 2.5 MG/3 ML VIAL.NEB. NEB SCH ×4 (08:20→20:34)
[2023-04-29 08:42] LABS: BASO % 0.5 % (0-2.0); EOS % 5.6 % (0-4.5); HEMATOCRIT 21.8 % (35.4-49); LYMPH % 7.5 % (8-40); MCH 22.4 pg (25.7-33.7); MCHC 31.4 g/dl (32.0-35.9); MEAN CELL VOLUME 71.3 fl (80-96); MONO % 7.5 % (3.8-10.2); NEUT % 78.9 % (42.8-82.8); PLATELET COUNT 498 10^3/uL (134-434); RBC 3.06 M/mm3 (4.00-5.60); RDW 28.8 % (11.9-15.9); WHITE BLOOD COUNT 12.8 K/mm3 (4.0-10.0)
[2023-04-29 08:49] LABS: MEAN PLT VOLUME 5.8 fl (7.5-11.1)
[2023-04-29 08:55] LABS: HEMOGLOBIN 6.9 GM/dL (11.7-16.9)
[2023-04-29 09:06] LABS: POTASSIUM 3.6 mmol/L (3.5-5.1)
[2023-04-29 09:13] LABS: BLOOD UREA NITROGEN 65.5 mg/dL (7-18)
[2023-04-29 09:15] LABS: CALCIUM 8.8 mg/dL (8.5-10.1)
[2023-04-29 09:16] LABS: CREATININE 1.9 mg/dL (0.55-1.3)
[2023-04-29 09:17] LABS: PHOSPHOROUS 2.3 mg/dL (2.5-4.9)
[2023-04-29 09:19] LABS: BILIRUBIN,TOTAL 0.3 mg/dL (0.2-1); MAGNESIUM 1.7 mg/dL (1.8-2.4)
[2023-04-29] MEDS: amLODIPine BESYLATE 5 MG TABLET (FP) PO SCH (10:43)
[2023-04-29] MEDS: AZTREONAM 1 GM in DEXTROSE 5%-WATER - 50 ML IVPB SCH ×2 (10:43→21:22)
[2023-04-29] MEDS: MULTIVITAMINS (DAILY MVI) TABLET (FP) PO SCH (10:43)
[2023-04-29] MEDS: AMINO ACIDS/PROTEIN HYDROLYS 30 ML LIQUID.PKT PO SCH ×3 (10:43→18:42)
[2023-04-29] MEDS: GABAPENTIN 100 MG CAPSULE PO SCH (10:44)
[2023-04-29] MEDS ORDERED: DEXTROSE 5%-WATER - 1,000 ML IV SCH (10:45)
[2023-04-29] MEDS: MINERAL OIL/PET HY-PHL TOPICAL OINTMENT 454 GM JAR TP SCH (10:47)
[2023-04-29] MEDS: COLLAGENASE CLOSTRIDIUM HIST. 30 GRAMS TUBE TP SCH (10:48)
[2023-04-29] MEDS ORDERED: NAPH,MB-DB/K PH,MBDB POWDER PACKET PO ONE (11:00)
[2023-04-29] MEDS ORDERED: MAGNESIUM 2GM/50ML STERILE WATER IVPB IVPB ONE ×2 (11:30→14:45)
[2023-04-29] MEDS: DOCUSATE SODIUM 100 MG CAPSULE (FP) PO SCH (21:22)
[2023-04-30 06:46] LABS: BASO % 0.5 % (0-2.0); EOS % 5.7 % (0-4.5); HEMATOCRIT 24.9 % (35.4-49); HEMOGLOBIN 7.9 GM/dL (11.7-16.9); LYMPH % 6.2 % (8-40); MCH 23.7 pg (25.7-33.7); MCHC 31.7 g/dl (32.0-35.9); MEAN CELL VOLUME 74.7 fl (80-96); MONO % 7.5 % (3.8-10.2); NEUT % 80.1 % (42.8-82.8); PLATELET COUNT 482 10^3/uL (134-434); RBC 3.34 M/mm3 (4.00-5.60); RDW 27.3 % (11.9-15.9); WHITE BLOOD COUNT 14.4 K/mm3 (4.0-10.0)
[2023-04-30 07:08] LABS: POTASSIUM 3.6 mmol/L (3.5-5.1)
[2023-04-30 07:12] LABS: ALBUMIN 1.8 g/dl (3.4-5.0); BLOOD UREA NITROGEN 70.9 mg/dL (7-18); CALCIUM 8.4 mg/dL (8.5-10.1)
[2023-04-30 07:15] LABS: CREATININE 1.9 mg/dL (0.55-1.3)
[2023-04-30 07:16] LABS: BILIRUBIN,TOTAL 0.5 mg/dL (0.2-1); TOT PROT 5.7 g/dl (6.4-8.2)
[2023-04-30] MEDS: ALBUTEROL SO4 0.083% IH SOL 2.5 MG/3 ML VIAL.NEB. NEB SCH ×4 (08:32→19:56)
[2023-04-30] MEDS: ACETYLCYSTEINE 20% 200MG/ML 4 ML VIAL *FOR ORAL / INH USE ONLY NEB SCH ×4 (08:32→19:55)
[2023-04-30] MEDS: AZTREONAM 1 GM in DEXTROSE 5%-WATER - 50 ML IVPB SCH ×2 (11:03→22:53)
[2023-04-30] MEDS: AMINO ACIDS/PROTEIN HYDROLYS 30 ML LIQUID.PKT PO SCH ×2 (11:03→18:35)
[2023-04-30] MEDS: GABAPENTIN 100 MG CAPSULE PO SCH (11:04)
[2023-04-30] MEDS: MULTIVITAMINS (DAILY MVI) TABLET (FP) PO SCH (11:04)
[2023-04-30] MEDS: amLODIPine BESYLATE 5 MG TABLET (FP) PO SCH (11:04)
[2023-04-30] MEDS: DAPTOMYCIN 300 MG in SODIUM CHLORIDE 50 ML IVPB SCH (14:35)
[2023-04-30] MEDS: COLLAGENASE CLOSTRIDIUM HIST. 30 GRAMS TUBE TP SCH (16:57)
[2023-04-30] MEDS: MINERAL OIL/PET HY-PHL TOPICAL OINTMENT 454 GM JAR TP SCH (16:57)
[2023-04-30] MEDS: DOCUSATE SODIUM 100 MG CAPSULE (FP) PO SCH (22:54)
[2023-05-01] MEDS: ACETYLCYSTEINE 20% 200MG/ML 4 ML VIAL *FOR ORAL / INH USE ONLY NEB SCH ×4 (08:36→20:05)
[2023-05-01] MEDS: ALBUTEROL SO4 0.083% IH SOL 2.5 MG/3 ML VIAL.NEB. NEB SCH ×3 (08:37→15:47)
[2023-05-01] MEDS: AMINO ACIDS/PROTEIN HYDROLYS 30 ML LIQUID.PKT PO SCH ×2 (09:20→17:43)
[2023-05-01] MEDS: COLLAGENASE CLOSTRIDIUM HIST. 30 GRAMS TUBE TP SCH (09:23)
[2023-05-01] MEDS: MINERAL OIL/PET HY-PHL TOPICAL OINTMENT 454 GM JAR TP SCH (09:23)
[2023-05-01] MEDS: amLODIPine BESYLATE 5 MG TABLET (FP) PO SCH (10:31)
[2023-05-01] MEDS: AZTREONAM 1 GM in DEXTROSE 5%-WATER - 50 ML IVPB SCH ×2 (10:31→23:00)
[2023-05-01] MEDS: GABAPENTIN 100 MG CAPSULE PO SCH (10:31)
[2023-05-01] MEDS: MULTIVITAMINS (DAILY MVI) TABLET (FP) PO SCH (10:31)
[2023-05-01] MEDS ORDERED: DEXTROSE 5%-WATER - 1,000 ML IV SCH (13:15)
[2023-05-01] MEDS ORDERED: RAPID SEQUENCE INTUBATION KIT NR ONE (14:16)
[2023-05-01] MEDS: PROPOFOL 1,000,000 MCG/100 ML VIAL IVPB SCH (14:45)
[2023-05-01] MEDS ORDERED: LACTATED RINGERS SOLUTION 1000 ML INFUS.BAG IV ONE (15:38)
[2023-05-01 15:43] LABS: ARTERIAL BLD GAS O2 SATURATION 99.4 % (95-98); ARTERIAL BLOOD GAS PO2 222.1 mmHg (80-100); ARTERIAL BLOOD GAS pH 7.342 (7.350-7.450)
[2023-05-01 15:46] LABS: ALLENS TEST POSITIVE; VENT MODE A/C; VENT RATE 14
[2023-05-01 19:30] LABS: BASO % 0.5 % (0-2.0); EOS % 1.4 % (0-4.5); HEMATOCRIT 23.6 % (35.4-49); HEMOGLOBIN 7.4 GM/dL (11.7-16.9); LYMPH % 5.5 % (8-40); MCH 23.4 pg (25.7-33.7); MCHC 31.5 g/dl (32.0-35.9); MEAN CELL VOLUME 74.3 fl (80-96); MEAN PLT VOLUME 5.9 fl (7.5-11.1); MONO % 6.6 % (3.8-10.2); PLATELET COUNT 393 10^3/uL (134-434); RBC 3.17 M/mm3 (4.00-5.60); RDW 27.5 % (11.9-15.9)
[2023-05-01 20:02] LABS: ANISOCYTOSIS 3+; MACROCYTOSIS 0
[2023-05-01] MEDS: ALBUTEROL SO4 2.5/IPRATROPIUM 0.5 INH SOL 3 ML VIAL.NEB. NEB SCH (20:05)
[2023-05-01 21:40] LABS: POTASSIUM 3.3 mmol/L (3.5-5.1)
[2023-05-01 21:51] LABS: ALBUMIN 1.8 g/dl (3.4-5.0); BLOOD UREA NITROGEN 73.6 mg/dL (7-18); CALCIUM 8.7 mg/dL (8.5-10.1)
[2023-05-01 21:56] LABS: BILIRUBIN,TOTAL 0.3 mg/dL (0.2-1); TOT PROT 5.6 g/dl (6.4-8.2)
[2023-05-01] MEDS: BUDESONIDE/FORMETEROL FUMARATE 160/4.5 mcg INHALER IH SCH (23:00)
[2023-05-01] MEDS: DOCUSATE SODIUM 100 MG CAPSULE (FP) PO SCH (23:00)
[2023-05-02] MEDS ORDERED: KCL 20 MEQ PREMIX BAG 100 ML IVPB SCH (01:00)
[2023-05-02 07:00] LABS: BASO % 0.5 % (0-2.0); EOS % 5.2 % (0-4.5); HEMATOCRIT 22.4 % (35.4-49); HEMOGLOBIN 7.3 GM/dL (11.7-16.9); LYMPH % 8.6 % (8-40); MCHC 32.5 g/dl (32.0-35.9); MEAN PLT VOLUME 6.4 fl (7.5-11.1); MONO % 8.2 % (3.8-10.2); NEUT % 77.5 % (42.8-82.8); PLATELET COUNT 438 10^3/uL (134-434); RBC 3.02 M/mm3 (4.00-5.60); RDW 28.1 % (11.9-15.9); WHITE BLOOD COUNT 12.2 K/mm3 (4.0-10.0)
[2023-05-02] MEDS: ACETYLCYSTEINE 20% 200MG/ML 4 ML VIAL *FOR ORAL / INH USE ONLY NEB SCH ×4 (07:17→21:52)
[2023-05-02] MEDS: ALBUTEROL SO4 2.5/IPRATROPIUM 0.5 INH SOL 3 ML VIAL.NEB. NEB SCH ×5 (07:17→21:52)
[2023-05-02 07:18] LABS: POTASSIUM 3.4 mmol/L (3.5-5.1)
[2023-05-02 07:24] LABS: CALCIUM 8.5 mg/dL (8.5-10.1)
[2023-05-02 07:25] LABS: ALBUMIN 1.7 g/dl (3.4-5.0); BLOOD UREA NITROGEN 71.5 mg/dL (7-18); MAGNESIUM 1.7 mg/dL (1.8-2.4)
[2023-05-02 07:28] LABS: CREATININE 1.9 mg/dL (0.55-1.3)
[2023-05-02 07:30] LABS: BILIRUBIN,TOTAL 0.2 mg/dL (0.2-1); TOT PROT 5.4 g/dl (6.4-8.2)
[2023-05-02] MEDS: AZTREONAM 1 GM in DEXTROSE 5%-WATER - 50 ML IVPB SCH ×2 (09:46→21:09)
[2023-05-02] MEDS: AMINO ACIDS/PROTEIN HYDROLYS 30 ML LIQUID.PKT PO SCH ×2 (09:49→17:05)
[2023-05-02] MEDS: MULTIVITAMINS (DAILY MVI) TABLET (FP) PO SCH (09:49)
[2023-05-02] MEDS: COLLAGENASE CLOSTRIDIUM HIST. 30 GRAMS TUBE TP SCH (09:49)
[2023-05-02] MEDS: GABAPENTIN 100 MG CAPSULE PO SCH (09:49)
[2023-05-02] MEDS: MINERAL OIL/PET HY-PHL TOPICAL OINTMENT 454 GM JAR TP SCH (09:49)
[2023-05-02] MEDS: BUDESONIDE/FORMETEROL FUMARATE 160/4.5 mcg INHALER IH SCH ×2 (09:50→21:08)
[2023-05-02] MEDS ORDERED: MAGNESIUM SULF 50% (8.12 MEQ/2 ML-1 GM VIAL) IVPB ONE (14:30)
[2023-05-02] MEDS ORDERED: DEXTROSE 5%-WATER - 1,000 ML with POTASSIUM CHLORIDE 10 MEQ IV SCH (14:30)
[2023-05-02] MEDS: PROPOFOL 1,000,000 MCG/100 ML VIAL IVPB SCH ×2 (15:02→21:59)
[2023-05-02] MEDS: DAPTOMYCIN 300 MG in SODIUM CHLORIDE 50 ML IVPB SCH (15:02)
[2023-05-02] MEDS: POTASSIUM CHLORIDE 10 MEQ in DEXTROSE 5%-WATER - 1,000 ML IV SCH (18:23)
[2023-05-02] MEDS: DOCUSATE SODIUM 100 MG CAPSULE (FP) PO SCH (21:08)
[2023-05-03 07:43] LABS: POTASSIUM 3.1 mmol/L (3.5-5.1)
[2023-05-03 07:52] LABS: BASO % 0.9 % (0-2.0); EOS % 11.8 % (0-4.5); HEMATOCRIT 24.2 % (35.4-49); HEMOGLOBIN 7.9 GM/dL (11.7-16.9); LYMPH % 7.2 % (8-40); MCH 23.5 pg (25.7-33.7); MCHC 32.8 g/dl (32.0-35.9); MEAN CELL VOLUME 71.7 fl (80-96); MEAN PLT VOLUME 5.9 fl (7.5-11.1); MONO % 9.6 % (3.8-10.2); NEUT % 70.5 % (42.8-82.8); PLATELET COUNT 438 10^3/uL (134-434); RBC 3.37 M/mm3 (4.00-5.60); RDW 29.2 % (11.9-15.9); WHITE BLOOD COUNT 11.5 K/mm3 (4.0-10.0)
[2023-05-03 07:52] LABS: CALCIUM 8.2 mg/dL (8.5-10.1)
[2023-05-03 07:53] LABS: ALBUMIN 1.7 g/dl (3.4-5.0); BLOOD UREA NITROGEN 71.2 mg/dL (7-18)
[2023-05-03 07:56] LABS: CREATININE 1.6 mg/dL (0.55-1.3)
[2023-05-03 07:58] LABS: BILIRUBIN,TOTAL 0.1 mg/dL (0.2-1); TOT PROT 5.5 g/dl (6.4-8.2)
[2023-05-03] MEDS: ACETYLCYSTEINE 20% 200MG/ML 4 ML VIAL *FOR ORAL / INH USE ONLY NEB SCH ×4 (08:30→20:13)
[2023-05-03] MEDS: ALBUTEROL SO4 2.5/IPRATROPIUM 0.5 INH SOL 3 ML VIAL.NEB. NEB SCH ×4 (08:30→20:13)
[2023-05-03] MEDS: POTASSIUM CHLORIDE 10 MEQ in DEXTROSE 5%-WATER - 1,000 ML IV SCH ×2 (09:21→18:52)
[2023-05-03] MEDS: SCOPOLAMINE HYDROBROMIDE 1 PATCH PATCH.TD72 TD SCH (09:22)
[2023-05-03] MEDS: AMINO ACIDS/PROTEIN HYDROLYS 30 ML LIQUID.PKT PO SCH ×2 (09:22→17:04)
[2023-05-03] MEDS: KCL 20 MEQ PREMIX BAG 100 ML IVPB SCH ×2 (09:22→09:31)
[2023-05-03] MEDS: MINERAL OIL/PET HY-PHL TOPICAL OINTMENT 454 GM JAR TP SCH (09:22)
[2023-05-03] MEDS: AZTREONAM 1 GM in DEXTROSE 5%-WATER - 50 ML IVPB SCH ×2 (09:22→17:04)
[2023-05-03] MEDS: MULTIVITAMINS (DAILY MVI) TABLET (FP) PO SCH (09:23)
[2023-05-03] MEDS: BUDESONIDE/FORMETEROL FUMARATE 160/4.5 mcg INHALER IH SCH ×2 (09:23→21:01)
[2023-05-03] MEDS: COLLAGENASE CLOSTRIDIUM HIST. 30 GRAMS TUBE TP SCH (09:23)
[2023-05-03] MEDS: GABAPENTIN 100 MG CAPSULE PO SCH (09:23)
[2023-05-03] MEDS: DEXTROSE 10%-WATER - 1,000 ML IV SCH (12:31)
[2023-05-03] MEDS: PROPOFOL 1,000,000 MCG/100 ML VIAL IVPB SCH (17:05)
[2023-05-03] MEDS: DOCUSATE SODIUM 100 MG CAPSULE (FP) PO SCH (21:01)
[2023-05-04] MEDS: AZTREONAM 1 GM in DEXTROSE 5%-WATER - 50 ML IVPB SCH ×2 (03:52→16:37)
[2023-05-04] MEDS: ACETYLCYSTEINE 20% 200MG/ML 4 ML VIAL *FOR ORAL / INH USE ONLY NEB SCH ×4 (07:15→20:35)
[2023-05-04] MEDS: ALBUTEROL SO4 0.083% IH SOL 2.5 MG/3 ML VIAL.NEB. NEB SCH ×4 (07:15→20:35)
[2023-05-04] MEDS: ALBUTEROL SO4 2.5/IPRATROPIUM 0.5 INH SOL 3 ML VIAL.NEB. NEB SCH (07:15)
[2023-05-04 07:33] LABS: BASO % 0.8 % (0-2.0); EOS % 8.5 % (0-4.5); HEMATOCRIT 23.2 % (35.4-49); HEMOGLOBIN 7.4 GM/dL (11.7-16.9); MCH 23.4 pg (25.7-33.7); MCHC 31.8 g/dl (32.0-35.9); MEAN CELL VOLUME 73.5 fl (80-96); MEAN PLT VOLUME 6.3 fl (7.5-11.1); MONO % 8.3 % (3.8-10.2); NEUT % 73.4 % (42.8-82.8); PLATELET COUNT 442 10^3/uL (134-434); RBC 3.15 M/mm3 (4.00-5.60); RDW 29.3 % (11.9-15.9); WHITE BLOOD COUNT 11.9 K/mm3 (4.0-10.0)
[2023-05-04 07:48] LABS: POTASSIUM 3.5 mmol/L (3.5-5.1)
[2023-05-04 07:56] LABS: ALBUMIN 1.6 g/dl (3.4-5.0); BLOOD UREA NITROGEN 69.3 mg/dL (7-18); MAGNESIUM 2.1 mg/dL (1.8-2.4)
[2023-05-04 07:59] LABS: CREATININE 1.5 mg/dL (0.55-1.3); PHOSPHOROUS 1.7 mg/dL (2.5-4.9)
[2023-05-04 08:00] LABS: BILIRUBIN,TOTAL 0.3 mg/dL (0.2-1); TOT PROT 5.4 g/dl (6.4-8.2)
[2023-05-04] MEDS: MULTIVITAMINS (DAILY MVI) TABLET (FP) PO SCH (09:01)
[2023-05-04] MEDS: AMINO ACIDS/PROTEIN HYDROLYS 30 ML LIQUID.PKT PO SCH ×2 (09:01→16:38)
[2023-05-04] MEDS: GABAPENTIN 100 MG CAPSULE PO SCH (09:01)
[2023-05-04] MEDS: MINERAL OIL/PET HY-PHL TOPICAL OINTMENT 454 GM JAR TP SCH (09:01)
[2023-05-04] MEDS: COLLAGENASE CLOSTRIDIUM HIST. 30 GRAMS TUBE TP SCH (09:02)
[2023-05-04] MEDS: BUDESONIDE/FORMETEROL FUMARATE 160/4.5 mcg INHALER IH SCH ×2 (09:02→21:02)
[2023-05-04] MEDS ORDERED: POTASSIUM PHOSPHATE 30 MM in DEXTROSE 5%-WATER - 250 ML IVPB ONE ×2 (10:15→11:34)
[2023-05-04] MEDS ORDERED: MAGNESIUM SULF 50% (8.12 MEQ/2 ML-1 GM VIAL) IVPB ONE (11:33)
[2023-05-04] MEDS: DAPTOMYCIN 300 MG in SODIUM CHLORIDE 50 ML IVPB SCH (14:24)
[2023-05-04] MEDS: PROPOFOL 1,000,000 MCG/100 ML VIAL IVPB SCH (16:38)
[2023-05-04] MEDS ORDERED: ACETAMINOPHEN 1000 MG/100 ML BAG IVPB PRN (17:42)
[2023-05-04] MEDS: DEXTROSE 10%-WATER - 1,000 ML IV SCH (19:25)
[2023-05-04] MEDS: DOCUSATE SODIUM 100 MG CAPSULE (FP) PO SCH (21:02)
[2023-05-05] MEDS: AZTREONAM 1 GM in DEXTROSE 5%-WATER - 50 ML IVPB SCH ×2 (03:58→16:00)
[2023-05-05] MEDS: ALBUTEROL SO4 0.083% IH SOL 2.5 MG/3 ML VIAL.NEB. NEB SCH ×3 (07:30→20:30)
[2023-05-05] MEDS: ACETYLCYSTEINE 20% 200MG/ML 4 ML VIAL *FOR ORAL / INH USE ONLY NEB SCH ×3 (07:30→20:30)
[2023-05-05 07:37] LABS: POTASSIUM 3.7 mmol/L (3.5-5.1)
[2023-05-05 07:39] LABS: CALCIUM 8.1 mg/dL (8.5-10.1)
[2023-05-05 07:40] LABS: BLOOD UREA NITROGEN 66.7 mg/dL (7-18); MAGNESIUM 2.1 mg/dL (1.8-2.4)
[2023-05-05 07:41] LABS: PHOSPHOROUS 3.6 mg/dL (2.5-4.9)
[2023-05-05 07:43] LABS: CREATININE 1.6 mg/dL (0.55-1.3)
[2023-05-05 07:48] LABS: BASO % 0.5 % (0-2.0); EOS % 8.4 % (0-4.5); HEMATOCRIT 22.1 % (35.4-49); HEMOGLOBIN 7.1 GM/dL (11.7-16.9); LYMPH % 11.1 % (8-40); MCH 23.1 pg (25.7-33.7); MCHC 32.1 g/dl (32.0-35.9); MEAN CELL VOLUME 72.1 fl (80-96); MEAN PLT VOLUME 5.9 fl (7.5-11.1); MONO % 8.3 % (3.8-10.2); NEUT % 71.7 % (42.8-82.8); PLATELET COUNT 400 10^3/uL (134-434); RBC 3.07 M/mm3 (4.00-5.60); RDW 30.1 % (11.9-15.9); WHITE BLOOD COUNT 12.1 K/mm3 (4.0-10.0)
[2023-05-05] MEDS: GABAPENTIN 100 MG CAPSULE PO SCH (09:06)
[2023-05-05] MEDS: AMINO ACIDS/PROTEIN HYDROLYS 30 ML LIQUID.PKT PO SCH ×2 (09:06→17:12)
[2023-05-05] MEDS: MULTIVITAMINS (DAILY MVI) TABLET (FP) PO SCH (09:06)
[2023-05-05] MEDS: MINERAL OIL/PET HY-PHL TOPICAL OINTMENT 454 GM JAR TP SCH (09:06)
[2023-05-05] MEDS: COLLAGENASE CLOSTRIDIUM HIST. 30 GRAMS TUBE TP SCH (09:06)
[2023-05-05] MEDS: DEXTROSE 10%-WATER - 1,000 ML IV SCH (09:07)
[2023-05-05] MEDS: BUDESONIDE/FORMETEROL FUMARATE 160/4.5 mcg INHALER IH SCH ×2 (09:07→21:14)
[2023-05-05] MEDS ORDERED: MIDAZOLAM HCL 5 MG/1 ML Single Dose Vial IVPUSH ONE ×2 (10:58→11:01)
[2023-05-05] MEDS ORDERED: PROPOFOL 1,000,000 MCG/100 ML VIAL IVPB SCH (11:15)
[2023-05-05] MEDS: PROPOFOL 1,000,000 MCG/100 ML VIAL IVPB SCH (15:41)
[2023-05-05] MEDS ORDERED: LACTATED RINGERS SOLUTION 1000 ML INFUS.BAG IV ONE (17:08)
[2023-05-05] MEDS: DEXMEDETOMIDINE PREMIX 400 MCG/100 ML BAG IVPB SCH (20:53)
[2023-05-05] MEDS: DOCUSATE SODIUM 100 MG CAPSULE (FP) PO SCH (21:14)
[2023-05-06] MEDS: AZTREONAM 1 GM in DEXTROSE 5%-WATER - 50 ML IVPB SCH ×2 (06:29→16:43)
[2023-05-06] MEDS: SCOPOLAMINE HYDROBROMIDE 1 PATCH PATCH.TD72 TD SCH (06:29)
[2023-05-06 08:05] LABS: HEMATOCRIT 22.9 % (35.4-49); HEMOGLOBIN 7.1 GM/dL (11.7-16.9); MCH 23.1 pg (25.7-33.7); MCHC 31.1 g/dl (32.0-35.9); MEAN CELL VOLUME 74.4 fl (80-96); MEAN PLT VOLUME 6.3 fl (7.5-11.1); PLATELET COUNT 353 10^3/uL (134-434); RBC 3.08 M/mm3 (4.00-5.60); RDW 29.9 % (11.9-15.9); WHITE BLOOD COUNT 11.8 K/mm3 (4.0-10.0)
[2023-05-06 08:18] LABS: POTASSIUM 3.6 mmol/L (3.5-5.1)
[2023-05-06 08:20] LABS: BLOOD UREA NITROGEN 58.8 mg/dL (7-18); CALCIUM 7.7 mg/dL (8.5-10.1); MAGNESIUM 1.9 mg/dL (1.8-2.4)
[2023-05-06 08:23] LABS: CREATININE 1.5 mg/dL (0.55-1.3); PHOSPHOROUS 3.2 mg/dL (2.5-4.9)
[2023-05-06] MEDS: ALBUTEROL SO4 0.083% IH SOL 2.5 MG/3 ML VIAL.NEB. NEB SCH ×4 (08:45→20:35)
[2023-05-06] MEDS: ACETYLCYSTEINE 20% 200MG/ML 4 ML VIAL *FOR ORAL / INH USE ONLY NEB SCH ×4 (08:45→20:35)
[2023-05-06] MEDS: AMINO ACIDS/PROTEIN HYDROLYS 30 ML LIQUID.PKT PO SCH ×2 (09:27→17:31)
[2023-05-06] MEDS: MINERAL OIL/PET HY-PHL TOPICAL OINTMENT 454 GM JAR TP SCH (09:28)
[2023-05-06] MEDS: GABAPENTIN 100 MG CAPSULE PO SCH (09:28)
[2023-05-06] MEDS: BUDESONIDE/FORMETEROL FUMARATE 160/4.5 mcg INHALER IH SCH ×2 (09:28→21:05)
[2023-05-06] MEDS: COLLAGENASE CLOSTRIDIUM HIST. 30 GRAMS TUBE TP SCH (09:28)
[2023-05-06] MEDS: MULTIVITAMINS (DAILY MVI) TABLET (FP) PO SCH (09:28)
[2023-05-06] MEDS: GABAPENTIN 250 MG/5 ML ORAL SOLUTION, 470 ML BOTTLE PO SCH (09:45)
[2023-05-06] MEDS ORDERED: hydrALAZINE HCL 20 MG/ML VIAL IVPUSH ONE (17:06)
[2023-05-06] MEDS: DOCUSATE SODIUM 100 MG CAPSULE (FP) PO SCH (21:02)
[2023-05-06] MEDS: DEXMEDETOMIDINE PREMIX 400 MCG/100 ML BAG IVPB SCH (21:02)
[2023-05-07] MEDS: AZTREONAM 1 GM in DEXTROSE 5%-WATER - 50 ML IVPB SCH (05:26)
[2023-05-07] MEDS: ALBUTEROL SO4 0.083% IH SOL 2.5 MG/3 ML VIAL.NEB. NEB SCH ×4 (07:20→19:38)
[2023-05-07 07:57] LABS: HEMATOCRIT 22.6 % (35.4-49); HEMOGLOBIN 7.1 GM/dL (11.7-16.9); MCH 23.3 pg (25.7-33.7); MCHC 31.3 g/dl (32.0-35.9); MEAN CELL VOLUME 74.5 fl (80-96); MEAN PLT VOLUME 6.3 fl (7.5-11.1); PLATELET COUNT 388 10^3/uL (134-434); RBC 3.03 M/mm3 (4.00-5.60)
[2023-05-07 08:21] LABS: POTASSIUM 3.9 mmol/L (3.5-5.1)
[2023-05-07 08:53] LABS: CALCIUM 8.1 mg/dL (8.5-10.1)
[2023-05-07 08:54] LABS: BLOOD UREA NITROGEN 58.9 mg/dL (7-18); MAGNESIUM 2.1 mg/dL (1.8-2.4)
[2023-05-07 08:57] LABS: CREATININE 1.5 mg/dL (0.55-1.3); PHOSPHOROUS 3.1 mg/dL (2.5-4.9)
[2023-05-07] MEDS: GABAPENTIN 250 MG/5 ML ORAL SOLUTION, 470 ML BOTTLE PO SCH (09:46)
[2023-05-07] MEDS: LOSARTAN POTASSIUM 50 MG TABLET PO SCH (09:46)
[2023-05-07] MEDS: MULTIVITAMINS (DAILY MVI) TABLET (FP) PO SCH (09:47)
[2023-05-07] MEDS: COLLAGENASE CLOSTRIDIUM HIST. 30 GRAMS TUBE TP SCH (09:48)
[2023-05-07] MEDS: AMINO ACIDS/PROTEIN HYDROLYS 30 ML LIQUID.PKT PO SCH ×2 (09:49→17:22)
[2023-05-07] MEDS: BUDESONIDE/FORMETEROL FUMARATE 160/4.5 mcg INHALER IH SCH ×2 (09:49→21:27)
[2023-05-07] MEDS: MINERAL OIL/PET HY-PHL TOPICAL OINTMENT 454 GM JAR TP SCH (12:41)
[2023-05-07] MEDS: DEXTROSE 5%-WATER - 1,000 ML IV SCH (15:42)
[2023-05-07] MEDS: DOCUSATE SODIUM 100 MG CAPSULE (FP) PO SCH (21:25)
[2023-05-08 07:32] LABS: HEMATOCRIT 20.8 % (35.4-49); MCH 23.7 pg (25.7-33.7); MCHC 31.6 g/dl (32.0-35.9); MEAN CELL VOLUME 74.8 fl (80-96); MEAN PLT VOLUME 6.5 fl (7.5-11.1); PLATELET COUNT 362 10^3/uL (134-434); RBC 2.78 M/mm3 (4.00-5.60); RDW 29.5 % (11.9-15.9); WHITE BLOOD COUNT 10.7 K/mm3 (4.0-10.0)
[2023-05-08 07:44] LABS: HEMOGLOBIN 6.6 GM/dL (11.7-16.9)
[2023-05-08 07:54] LABS: POTASSIUM 3.5 mmol/L (3.5-5.1)
[2023-05-08] MEDS: INSULIN SLIDING SCALE (NOVOLOG) 1 VIAL SQ SCH ×4 (07:58→21:11)
[2023-05-08 08:01] LABS: ALBUMIN 1.6 g/dl (3.4-5.0); BLOOD UREA NITROGEN 56.2 mg/dL (7-18); PHOSPHOROUS 2.5 mg/dL (2.5-4.9)
[2023-05-08 08:03] LABS: BILIRUBIN,TOTAL 0.2 mg/dL (0.2-1); TOT PROT 5.6 g/dl (6.4-8.2)
[2023-05-08 08:04] LABS: CALCIUM 7.6 mg/dL (8.5-10.1); CREATININE 1.4 mg/dL (0.55-1.3); MAGNESIUM 1.9 mg/dL (1.8-2.4)
[2023-05-08] MEDS: ALBUTEROL SO4 0.083% IH SOL 2.5 MG/3 ML VIAL.NEB. NEB SCH ×4 (08:10→21:00)
[2023-05-08] MEDS: amLODIPine BESYLATE 5 MG TABLET (FP) PO SCH (09:31)
[2023-05-08] MEDS: MULTIVITAMINS (DAILY MVI) TABLET (FP) PO SCH (09:31)
[2023-05-08] MEDS: AMINO ACIDS/PROTEIN HYDROLYS 30 ML LIQUID.PKT PO SCH ×2 (09:31→17:26)
[2023-05-08] MEDS: LOSARTAN POTASSIUM 50 MG TABLET PO SCH (09:31)
[2023-05-08] MEDS: MINERAL OIL/PET HY-PHL TOPICAL OINTMENT 454 GM JAR TP SCH (09:33)
[2023-05-08] MEDS: BUDESONIDE/FORMETEROL FUMARATE 160/4.5 mcg INHALER IH SCH ×2 (09:33→21:11)
[2023-05-08] MEDS: COLLAGENASE CLOSTRIDIUM HIST. 30 GRAMS TUBE TP SCH (09:33)
[2023-05-08] MEDS: GABAPENTIN 250 MG/5 ML ORAL SOLUTION, 470 ML BOTTLE PO SCH (12:48)
[2023-05-08] MEDS: DEXTROSE 5%-WATER - 1,000 ML IV SCH (21:10)
[2023-05-08] MEDS: DOCUSATE SODIUM 100 MG CAPSULE (FP) PO SCH (21:11)
[2023-05-09] MEDS: SCOPOLAMINE HYDROBROMIDE 1 PATCH PATCH.TD72 TD SCH (06:19)
[2023-05-09] MEDS: INSULIN SLIDING SCALE (NOVOLOG) 1 VIAL SQ SCH ×4 (06:20→21:05)
[2023-05-09 07:55] LABS: BASO % 0.6 % (0-2.0); EOS % 11.4 % (0-4.5); HEMATOCRIT 24.8 % (35.4-49); LYMPH % 10.7 % (8-40); MCH 24.6 pg (25.7-33.7); MCHC 32.1 g/dl (32.0-35.9); MEAN CELL VOLUME 76.7 fl (80-96); MEAN PLT VOLUME 6.7 fl (7.5-11.1); MONO % 9.2 % (3.8-10.2); NEUT % 68.1 % (42.8-82.8); PLATELET COUNT 376 10^3/uL (134-434); RBC 3.23 M/mm3 (4.00-5.60); RDW 27.5 % (11.9-15.9); WHITE BLOOD COUNT 11.1 K/mm3 (4.0-10.0)
[2023-05-09 08:11] LABS: POTASSIUM 3.2 mmol/L (3.5-5.1)
[2023-05-09 08:16] LABS: ALBUMIN 1.7 g/dl (3.4-5.0); BLOOD UREA NITROGEN 49.1 mg/dL (7-18); CALCIUM 7.9 mg/dL (8.5-10.1); MAGNESIUM 1.8 mg/dL (1.8-2.4)
[2023-05-09 08:19] LABS: CREATININE 1.4 mg/dL (0.55-1.3); PHOSPHOROUS 2.2 mg/dL (2.5-4.9)
[2023-05-09 08:21] LABS: BILIRUBIN,TOTAL 0.2 mg/dL (0.2-1); TOT PROT 5.6 g/dl (6.4-8.2)
[2023-05-09] MEDS: ALBUTEROL SO4 0.083% IH SOL 2.5 MG/3 ML VIAL.NEB. NEB SCH ×4 (08:38→20:37)
[2023-05-09 09:07] LABS: ANISOCYTOSIS 3+; MACROCYTOSIS 0; OVALOCYTE 1+; TARGET CELLS 1+
[2023-05-09] MEDS ORDERED: DEXTROSE 5%-WATER - 500 ML IV SCH (10:45)
[2023-05-09] MEDS: LOSARTAN POTASSIUM 50 MG TABLET PO SCH (11:42)
[2023-05-09] MEDS: COLLAGENASE CLOSTRIDIUM HIST. 30 GRAMS TUBE TP SCH (11:43)
[2023-05-09] MEDS: amLODIPine BESYLATE 5 MG TABLET (FP) PO SCH (11:43)
[2023-05-09] MEDS: AMINO ACIDS/PROTEIN HYDROLYS 30 ML LIQUID.PKT PO SCH ×2 (11:43→17:14)
[2023-05-09] MEDS: MULTIVITAMINS (DAILY MVI) TABLET (FP) PO SCH (11:43)
[2023-05-09] MEDS: BUDESONIDE/FORMETEROL FUMARATE 160/4.5 mcg INHALER IH SCH ×2 (11:43→21:05)
[2023-05-09] MEDS: GABAPENTIN 250 MG/5 ML ORAL SOLUTION, 470 ML BOTTLE PO SCH (11:43)
[2023-05-09] MEDS: MINERAL OIL/PET HY-PHL TOPICAL OINTMENT 454 GM JAR TP SCH (11:44)
[2023-05-09] MEDS: KCL 20 MEQ PREMIX BAG 100 ML IVPB SCH ×3 (18:16→22:49)
[2023-05-09] MEDS: DEXTROSE 5%-WATER - 1,000 ML IV SCH (20:55)
[2023-05-09] MEDS: DOCUSATE SODIUM 100 MG CAPSULE (FP) PO SCH (21:02)
[2023-05-10] MEDS: INSULIN SLIDING SCALE (NOVOLOG) 1 VIAL SQ SCH ×4 (07:10→21:25)
[2023-05-10 07:32] LABS: HEMOGLOBIN 7.9 GM/dL (11.7-16.9); MCH 25.3 pg (25.7-33.7); MCHC 32.8 g/dl (32.0-35.9); MEAN CELL VOLUME 76.9 fl (80-96); MEAN PLT VOLUME 6.6 fl (7.5-11.1); PLATELET COUNT 395 10^3/uL (134-434); RBC 3.12 M/mm3 (4.00-5.60); RDW 27.7 % (11.9-15.9); WHITE BLOOD COUNT 11.2 K/mm3 (4.0-10.0)
[2023-05-10 07:52] LABS: POTASSIUM 4.8 mmol/L (3.5-5.1)
[2023-05-10 07:57] LABS: CALCIUM 7.8 mg/dL (8.5-10.1)
[2023-05-10 07:58] LABS: BLOOD UREA NITROGEN 42.7 mg/dL (7-18); MAGNESIUM 1.8 mg/dL (1.8-2.4)
[2023-05-10 08:01] LABS: CREATININE 1.4 mg/dL (0.55-1.3); PHOSPHOROUS 2.6 mg/dL (2.5-4.9)
[2023-05-10] MEDS: ALBUTEROL SO4 0.083% IH SOL 2.5 MG/3 ML VIAL.NEB. NEB SCH ×4 (08:33→20:48)
[2023-05-10] MEDS ORDERED: SIMETHICONE 40 MG/0.6 ML BOTTLE PO PRN (09:43)
[2023-05-10] MEDS ORDERED: DEXTROSE 5%-WATER - 500 ML IV SCH (10:30)
[2023-05-10] MEDS: MULTIVITAMINS (DAILY MVI) TABLET (FP) PO SCH (10:43)
[2023-05-10] MEDS: LOSARTAN POTASSIUM 50 MG TABLET PO SCH (10:43)
[2023-05-10] MEDS: GABAPENTIN 250 MG/5 ML ORAL SOLUTION, 470 ML BOTTLE PO SCH (10:43)
[2023-05-10] MEDS: AMINO ACIDS/PROTEIN HYDROLYS 30 ML LIQUID.PKT PO SCH ×2 (10:43→16:41)
[2023-05-10] MEDS: amLODIPine BESYLATE 5 MG TABLET (FP) PO SCH (10:43)
[2023-05-10] MEDS: MINERAL OIL/PET HY-PHL TOPICAL OINTMENT 454 GM JAR TP SCH (10:43)
[2023-05-10] MEDS: COLLAGENASE CLOSTRIDIUM HIST. 30 GRAMS TUBE TP SCH (10:43)
[2023-05-10] MEDS: BUDESONIDE/FORMETEROL FUMARATE 160/4.5 mcg INHALER IH SCH ×2 (10:44→21:28)
[2023-05-10] MEDS: DEXTROSE 5%-WATER - 1,000 ML IV SCH (10:44)
[2023-05-10] MEDS ORDERED: DEXTROSE 5%-WATER - 1,000 ML IV SCH (10:48)
[2023-05-10] MEDS ORDERED: INSULIN (NOVOLOG) ASPART 100 UNITS/ML 10ML VIAL ONE (21:11)
[2023-05-10] MEDS: DOCUSATE SODIUM 100 MG CAPSULE (FP) PO SCH (21:25)
[2023-05-10] MEDS: DAPTOMYCIN 300 MG in SODIUM CHLORIDE 50 ML IVPB SCH (21:26)
[2023-05-11] MEDS: INSULIN SLIDING SCALE (NOVOLOG) 1 VIAL SQ SCH ×4 (06:20→21:21)
[2023-05-11 07:54] LABS: EOS % 8.4 % (0-4.5); HEMATOCRIT 24.8 % (35.4-49); HEMOGLOBIN 8.2 GM/dL (11.7-16.9); LYMPH % 14.3 % (8-40); MCH 25.6 pg (25.7-33.7); MCHC 33.1 g/dl (32.0-35.9); MEAN CELL VOLUME 77.3 fl (80-96); MEAN PLT VOLUME 6.6 fl (7.5-11.1); MONO % 8.3 % (3.8-10.2); PLATELET COUNT 423 10^3/uL (134-434); RDW 27.4 % (11.9-15.9); WHITE BLOOD COUNT 11.3 K/mm3 (4.0-10.0)
[2023-05-11 07:55] LABS: POTASSIUM 4.5 mmol/L (3.5-5.1)
[2023-05-11 08:05] LABS: ALBUMIN 1.8 g/dl (3.4-5.0); BLOOD UREA NITROGEN 38.5 mg/dL (7-18); CALCIUM 8.4 mg/dL (8.5-10.1)
[2023-05-11 08:06] LABS: MAGNESIUM 1.8 mg/dL (1.8-2.4)
[2023-05-11 08:07] LABS: CREATININE 1.4 mg/dL (0.55-1.3); PHOSPHOROUS 2.6 mg/dL (2.5-4.9)
[2023-05-11 08:09] LABS: BILIRUBIN,TOTAL 0.3 mg/dL (0.2-1)
[2023-05-11] MEDS: ALBUTEROL SO4 0.083% IH SOL 2.5 MG/3 ML VIAL.NEB. NEB SCH ×4 (08:15→20:54)
[2023-05-11] MEDS: AMINO ACIDS/PROTEIN HYDROLYS 30 ML LIQUID.PKT PO SCH ×2 (09:22→18:53)
[2023-05-11] MEDS: MULTIVITAMINS (DAILY MVI) TABLET (FP) PO SCH (09:23)
[2023-05-11] MEDS: LOSARTAN POTASSIUM 50 MG TABLET PO SCH (09:23)
[2023-05-11] MEDS: amLODIPine BESYLATE 5 MG TABLET (FP) PO SCH (09:23)
[2023-05-11] MEDS: GABAPENTIN 250 MG/5 ML ORAL SOLUTION, 470 ML BOTTLE PO SCH (09:38)
[2023-05-11] MEDS: COLLAGENASE CLOSTRIDIUM HIST. 30 GRAMS TUBE TP SCH (11:00)
[2023-05-11] MEDS: MINERAL OIL/PET HY-PHL TOPICAL OINTMENT 454 GM JAR TP SCH (11:00)
[2023-05-11] MEDS: ACETYLCYSTEINE 20% 200MG/ML 4 ML VIAL *FOR ORAL / INH USE ONLY NEB SCH ×3 (11:40→20:55)
[2023-05-11] MEDS: BUDESONIDE/FORMETEROL FUMARATE 160/4.5 mcg INHALER IH SCH ×2 (12:54→21:26)
[2023-05-11] MEDS: AMINO ACIDS 4.25%/D5W 1,000 ML IV SCH (14:02)
[2023-05-11] MEDS: DAPTOMYCIN 300 MG in SODIUM CHLORIDE 50 ML IVPB SCH (18:53)
[2023-05-11] MEDS: DOCUSATE SODIUM 100 MG CAPSULE (FP) PO SCH (21:23)
[2023-05-12] MEDS: SCOPOLAMINE HYDROBROMIDE 1 PATCH PATCH.TD72 TD SCH (06:26)
[2023-05-12] MEDS: INSULIN SLIDING SCALE (NOVOLOG) 1 VIAL SQ SCH ×4 (06:36→22:41)
[2023-05-12 07:30] LABS: HEMATOCRIT 24.7 % (35.4-49); HEMOGLOBIN 7.9 GM/dL (11.7-16.9); LYMPH % 14.6 % (8-40); MCH 24.6 pg (25.7-33.7); MCHC 31.8 g/dl (32.0-35.9); MEAN CELL VOLUME 77.2 fl (80-96); MEAN PLT VOLUME 6.5 fl (7.5-11.1); MONO % 7.6 % (3.8-10.2); NEUT % 68.8 % (42.8-82.8); PLATELET COUNT 440 10^3/uL (134-434); RDW 27.7 % (11.9-15.9); WHITE BLOOD COUNT 11.1 K/mm3 (4.0-10.0)
[2023-05-12 07:44] LABS: POTASSIUM 4.6 mmol/L (3.5-5.1)
[2023-05-12] MEDS: ALBUTEROL SO4 0.083% IH SOL 2.5 MG/3 ML VIAL.NEB. NEB SCH ×2 (07:50→11:34)
[2023-05-12] MEDS: ACETYLCYSTEINE 20% 200MG/ML 4 ML VIAL *FOR ORAL / INH USE ONLY NEB SCH ×4 (07:50→20:40)
[2023-05-12 07:53] LABS: ALBUMIN 1.8 g/dl (3.4-5.0); BLOOD UREA NITROGEN 39.5 mg/dL (7-18); MAGNESIUM 1.7 mg/dL (1.8-2.4)
[2023-05-12 07:56] LABS: CREATININE 1.4 mg/dL (0.55-1.3); PHOSPHOROUS 2.6 mg/dL (2.5-4.9)
[2023-05-12 07:57] LABS: BILIRUBIN,TOTAL 0.2 mg/dL (0.2-1)
[2023-05-12 08:58] LABS: ANISOCYTOSIS 3+; MACROCYTOSIS 0
[2023-05-12] MEDS: AMINO ACIDS/PROTEIN HYDROLYS 30 ML LIQUID.PKT PO SCH ×2 (10:35→17:02)
[2023-05-12] MEDS: amLODIPine BESYLATE 5 MG TABLET (FP) PO SCH (10:36)
[2023-05-12] MEDS: LOSARTAN POTASSIUM 50 MG TABLET PO SCH (10:36)
[2023-05-12] MEDS: MULTIVITAMINS (DAILY MVI) TABLET (FP) PO SCH (10:36)
[2023-05-12] MEDS: MINERAL OIL/PET HY-PHL TOPICAL OINTMENT 454 GM JAR TP SCH (10:36)
[2023-05-12] MEDS: BUDESONIDE/FORMETEROL FUMARATE 160/4.5 mcg INHALER IH SCH ×2 (10:36→22:34)
[2023-05-12] MEDS: COLLAGENASE CLOSTRIDIUM HIST. 30 GRAMS TUBE TP SCH (10:37)
[2023-05-12] MEDS ORDERED: dilTIAZem HCL 125 MG/25 ML - 25 ML VIAL ONE (10:39)
[2023-05-12] MEDS: GABAPENTIN 250 MG/5 ML ORAL SOLUTION, 470 ML BOTTLE PO SCH (10:39)
[2023-05-12] MEDS: AMINO ACIDS 4.25%/D5W 1,000 ML IV SCH (12:45)
[2023-05-12] MEDS ORDERED: MAGNESIUM 2GM/50ML STERILE WATER IVPB IVPB ONE (14:15)
[2023-05-12] MEDS: ALBUTEROL SO4 0.083% IH SOL 2.5 MG/3 ML VIAL.NEB. NEB PRN ×2 (15:05→20:40)
[2023-05-12] MEDS: AZTREONAM 1 GM in DEXTROSE 5%-WATER - 50 ML IVPB SCH ×2 (16:25→22:31)
[2023-05-12] MEDS: SODIUM CHLORIDE IVPB SCH (20:59)
[2023-05-12] MEDS: DAPTOMYCIN IVPB SCH (20:59)
[2023-05-12] MEDS: DOCUSATE SODIUM 100 MG CAPSULE (FP) PO SCH (22:39)
[2023-05-13] MEDS: AZTREONAM 1 GM in DEXTROSE 5%-WATER - 50 ML IVPB SCH ×3 (05:32→21:47)
[2023-05-13] MEDS: INSULIN SLIDING SCALE (NOVOLOG) 1 VIAL SQ SCH ×4 (06:37→21:47)
[2023-05-13] MEDS: ACETYLCYSTEINE 20% 200MG/ML 4 ML VIAL *FOR ORAL / INH USE ONLY NEB SCH ×4 (08:30→20:36)
[2023-05-13] MEDS: ALBUTEROL SO4 0.083% IH SOL 2.5 MG/3 ML VIAL.NEB. NEB PRN ×4 (08:30→20:37)
[2023-05-13 08:32] LABS: BASO % 0.8 % (0-2.0); EOS % 10.8 % (0-4.5); HEMATOCRIT 25.5 % (35.4-49); HEMOGLOBIN 8.1 GM/dL (11.7-16.9); LYMPH % 13.1 % (8-40); MCH 24.8 pg (25.7-33.7); MCHC 31.9 g/dl (32.0-35.9); MEAN CELL VOLUME 77.8 fl (80-96); MEAN PLT VOLUME 6.7 fl (7.5-11.1); MONO % 7.7 % (3.8-10.2); NEUT % 67.6 % (42.8-82.8); PLATELET COUNT 516 10^3/uL (134-434); RBC 3.28 M/mm3 (4.00-5.60); WHITE BLOOD COUNT 10.3 K/mm3 (4.0-10.0)
[2023-05-13 08:57] LABS: POTASSIUM 4.9 mmol/L (3.5-5.1)
[2023-05-13 09:00] LABS: BLOOD UREA NITROGEN 51.5 mg/dL (7-18); CALCIUM 8.5 mg/dL (8.5-10.1)
[2023-05-13 09:01] LABS: ALBUMIN 1.8 g/dl (3.4-5.0); MAGNESIUM 2.2 mg/dL (1.8-2.4)
[2023-05-13 09:04] LABS: CREATININE 1.4 mg/dL (0.55-1.3); PHOSPHOROUS 2.5 mg/dL (2.5-4.9)
[2023-05-13 09:05] LABS: TOT PROT 6.1 g/dl (6.4-8.2)
[2023-05-13 09:06] LABS: BILIRUBIN,TOTAL 0.1 mg/dL (0.2-1)
[2023-05-13] MEDS: amLODIPine BESYLATE 5 MG TABLET (FP) PO SCH (09:07)
[2023-05-13] MEDS: GABAPENTIN 100 MG CAPSULE PO SCH (09:07)
[2023-05-13] MEDS: MULTIVITAMINS (DAILY MVI) TABLET (FP) PO SCH (09:07)
[2023-05-13] MEDS: LOSARTAN POTASSIUM 50 MG TABLET PO SCH (09:07)
[2023-05-13] MEDS: AMINO ACIDS/PROTEIN HYDROLYS 30 ML LIQUID.PKT PO SCH ×2 (09:10→16:42)
[2023-05-13] MEDS: MINERAL OIL/PET HY-PHL TOPICAL OINTMENT 454 GM JAR TP SCH (09:11)
[2023-05-13] MEDS: BUDESONIDE/FORMETEROL FUMARATE 160/4.5 mcg INHALER IH SCH ×2 (09:12→21:49)
[2023-05-13] MEDS ORDERED: DEXTROSE 5%-WATER - 1,000 ML IV SCH (10:00)
[2023-05-13] MEDS ORDERED: GABAPENTIN 250 MG/5 ML ORAL SOLUTION, 470 ML BOTTLE PO SCH (10:00)
[2023-05-13] MEDS ORDERED: ACETAMINOPHEN 1000 MG/100 ML BAG IVPB PRN (11:57)
[2023-05-13] MEDS ORDERED: AMINO ACIDS 4.25%/D5W 1,000 ML IV SCH (12:00)
[2023-05-13] MEDS: COLLAGENASE CLOSTRIDIUM HIST. 30 GRAMS TUBE TP SCH (13:17)
[2023-05-13] MEDS: SODIUM CHLORIDE IVPB SCH (18:36)
[2023-05-13] MEDS: DAPTOMYCIN IVPB SCH (18:36)
[2023-05-13] MEDS: DOCUSATE SODIUM 100 MG CAPSULE (FP) PO SCH (21:47)
[2023-05-14] MEDS: AZTREONAM 1 GM in DEXTROSE 5%-WATER - 50 ML IVPB SCH ×3 (05:59→22:28)
[2023-05-14] MEDS: INSULIN SLIDING SCALE (NOVOLOG) 1 VIAL SQ SCH ×4 (06:04→22:29)
[2023-05-14] MEDS: ACETYLCYSTEINE 20% 200MG/ML 4 ML VIAL *FOR ORAL / INH USE ONLY NEB SCH ×4 (07:46→20:30)
[2023-05-14] MEDS: ALBUTEROL SO4 0.083% IH SOL 2.5 MG/3 ML VIAL.NEB. NEB PRN ×4 (07:46→20:30)
[2023-05-14 09:03] LABS: POTASSIUM 4.7 mmol/L (3.5-5.1)
[2023-05-14 09:04] LABS: CALCIUM 8.6 mg/dL (8.5-10.1)
[2023-05-14 09:05] LABS: ALBUMIN 1.8 g/dl (3.4-5.0); BLOOD UREA NITROGEN 50.5 mg/dL (7-18)
[2023-05-14 09:08] LABS: CREATININE 1.3 mg/dL (0.55-1.3)
[2023-05-14 09:10] LABS: BILIRUBIN,TOTAL 0.1 mg/dL (0.2-1); TOT PROT 5.9 g/dl (6.4-8.2)
[2023-05-14] MEDS: AMINO ACIDS/PROTEIN HYDROLYS 30 ML LIQUID.PKT PO SCH ×2 (09:53→17:41)
[2023-05-14] MEDS: DEXTROSE 5%-WATER - 1,000 ML IV SCH (09:54)
[2023-05-14] MEDS: amLODIPine BESYLATE 5 MG TABLET (FP) PO SCH (09:54)
[2023-05-14] MEDS: MULTIVITAMINS (DAILY MVI) TABLET (FP) PO SCH (09:54)
[2023-05-14] MEDS: GABAPENTIN 100 MG CAPSULE PO SCH (09:54)
[2023-05-14] MEDS: MINERAL OIL/PET HY-PHL TOPICAL OINTMENT 454 GM JAR TP SCH (09:54)
[2023-05-14] MEDS: LOSARTAN POTASSIUM 50 MG TABLET PO SCH (09:54)
[2023-05-14] MEDS: COLLAGENASE CLOSTRIDIUM HIST. 30 GRAMS TUBE TP SCH (09:55)
[2023-05-14] MEDS: BUDESONIDE/FORMETEROL FUMARATE 160/4.5 mcg INHALER IH SCH ×2 (09:55→22:29)
[2023-05-14] MEDS ORDERED: FENTANYL CITRATE/PF 50 MCG/ML VIAL ONE (13:24)
[2023-05-14] MEDS: SODIUM CHLORIDE IVPB SCH (18:15)
[2023-05-14] MEDS: DAPTOMYCIN IVPB SCH (18:15)
[2023-05-14] MEDS: DOCUSATE SODIUM 100 MG CAPSULE (FP) PO SCH (22:28)
[2023-05-15] MEDS: AZTREONAM 1 GM in DEXTROSE 5%-WATER - 50 ML IVPB SCH ×3 (05:22→22:45)
[2023-05-15] MEDS: INSULIN SLIDING SCALE (NOVOLOG) 1 VIAL SQ SCH ×4 (06:06→22:45)
[2023-05-15] MEDS: ACETYLCYSTEINE 20% 200MG/ML 4 ML VIAL *FOR ORAL / INH USE ONLY NEB SCH ×4 (08:20→20:20)
[2023-05-15 09:13] LABS: POTASSIUM 4.8 mmol/L (3.5-5.1)
[2023-05-15 09:16] LABS: CALCIUM 8.6 mg/dL (8.5-10.1)
[2023-05-15 09:17] LABS: ALBUMIN 1.8 g/dl (3.4-5.0); BLOOD UREA NITROGEN 50.6 mg/dL (7-18)
[2023-05-15 09:20] LABS: CREATININE 1.4 mg/dL (0.55-1.3)
[2023-05-15 09:21] LABS: BILIRUBIN,TOTAL 0.2 mg/dL (0.2-1)
[2023-05-15] MEDS: DEXTROSE 5%-WATER - 1,000 ML IV SCH (09:33)
[2023-05-15] MEDS: MINERAL OIL/PET HY-PHL TOPICAL OINTMENT 454 GM JAR TP SCH (09:33)
[2023-05-15] MEDS: AMINO ACIDS/PROTEIN HYDROLYS 30 ML LIQUID.PKT PO SCH ×2 (09:33→17:36)
[2023-05-15] MEDS: MULTIVITAMINS (DAILY MVI) TABLET (FP) PO SCH (09:34)
[2023-05-15] MEDS: COLLAGENASE CLOSTRIDIUM HIST. 30 GRAMS TUBE TP SCH (09:34)
[2023-05-15] MEDS: BUDESONIDE/FORMETEROL FUMARATE 160/4.5 mcg INHALER IH SCH ×2 (09:34→22:46)
[2023-05-15] MEDS: LOSARTAN POTASSIUM 50 MG TABLET PO SCH (09:34)
[2023-05-15] MEDS: amLODIPine BESYLATE 5 MG TABLET (FP) PO SCH (09:34)
[2023-05-15] MEDS: GABAPENTIN 100 MG CAPSULE PO SCH (09:34)
[2023-05-15] MEDS ORDERED: ACETAMINOPHEN 1000 MG/100 ML BAG IVPB PRN ×2 (10:55→22:23)
[2023-05-15] MEDS: DAPTOMYCIN IVPB SCH (18:58)
[2023-05-15] MEDS: SODIUM CHLORIDE IVPB SCH (18:58)
[2023-05-15] MEDS: ALBUTEROL SO4 0.083% IH SOL 2.5 MG/3 ML VIAL.NEB. NEB PRN (20:20)
[2023-05-15] MEDS: DOCUSATE SODIUM 100 MG CAPSULE (FP) PO SCH (22:45)
[2023-05-16] MEDS: DEXTROSE 5%-WATER - 1,000 ML IV SCH ×2 (05:30→09:30)
[2023-05-16] MEDS: AZTREONAM 1 GM in DEXTROSE 5%-WATER - 50 ML IVPB SCH ×3 (05:40→21:38)
[2023-05-16] MEDS: INSULIN SLIDING SCALE (NOVOLOG) 1 VIAL SQ SCH ×4 (06:48→21:38)
[2023-05-16] MEDS: ACETYLCYSTEINE 20% 200MG/ML 4 ML VIAL *FOR ORAL / INH USE ONLY NEB SCH ×4 (08:30→20:38)
[2023-05-16] MEDS: AMINO ACIDS/PROTEIN HYDROLYS 30 ML LIQUID.PKT PO SCH ×2 (09:08→16:55)
[2023-05-16] MEDS: MULTIVITAMINS (DAILY MVI) TABLET (FP) PO SCH (09:12)
[2023-05-16] MEDS: MINERAL OIL/PET HY-PHL TOPICAL OINTMENT 454 GM JAR TP SCH (09:12)
[2023-05-16] MEDS: LOSARTAN POTASSIUM 50 MG TABLET PO SCH (09:12)
[2023-05-16] MEDS: GABAPENTIN 100 MG CAPSULE PO SCH (09:12)
[2023-05-16] MEDS: amLODIPine BESYLATE 5 MG TABLET (FP) PO SCH (09:12)
[2023-05-16] MEDS: BUDESONIDE/FORMETEROL FUMARATE 160/4.5 mcg INHALER IH SCH ×2 (09:13→21:44)
[2023-05-16] MEDS: COLLAGENASE CLOSTRIDIUM HIST. 30 GRAMS TUBE TP SCH (09:13)
[2023-05-16] MEDS: ALBUTEROL SO4 0.083% IH SOL 2.5 MG/3 ML VIAL.NEB. NEB PRN ×2 (16:07→20:38)
[2023-05-16] MEDS: DAPTOMYCIN IVPB SCH (18:17)
[2023-05-16] MEDS: SODIUM CHLORIDE IVPB SCH (18:17)
[2023-05-16] MEDS: DOCUSATE SODIUM 100 MG CAPSULE (FP) PO SCH (21:38)
[2023-05-17] MEDS: AZTREONAM 1 GM in DEXTROSE 5%-WATER - 50 ML IVPB SCH ×3 (05:38→21:34)
[2023-05-17] MEDS: INSULIN SLIDING SCALE (NOVOLOG) 1 VIAL SQ SCH ×4 (06:31→21:35)
[2023-05-17] MEDS: ACETYLCYSTEINE 20% 200MG/ML 4 ML VIAL *FOR ORAL / INH USE ONLY NEB SCH ×2 (07:27→11:18)
[2023-05-17] MEDS: ALBUTEROL SO4 0.083% IH SOL 2.5 MG/3 ML VIAL.NEB. NEB PRN ×3 (07:28→15:00)
[2023-05-17] MEDS: MULTIVITAMINS (DAILY MVI) TABLET (FP) PO SCH (09:54)
[2023-05-17] MEDS: AMINO ACIDS/PROTEIN HYDROLYS 30 ML LIQUID.PKT PO SCH ×2 (09:54→18:16)
[2023-05-17] MEDS: amLODIPine BESYLATE 5 MG TABLET (FP) PO SCH (09:54)
[2023-05-17] MEDS: LOSARTAN POTASSIUM 50 MG TABLET PO SCH (09:55)
[2023-05-17] MEDS: GABAPENTIN 100 MG CAPSULE PO SCH (09:55)
[2023-05-17] MEDS: DEXTROSE 5%-WATER - 1,000 ML IV SCH (11:09)
[2023-05-17] MEDS: COLLAGENASE CLOSTRIDIUM HIST. 30 GRAMS TUBE TP SCH (11:12)
[2023-05-17] MEDS: BUDESONIDE/FORMETEROL FUMARATE 160/4.5 mcg INHALER IH SCH ×2 (11:14→21:35)
[2023-05-17] MEDS: MINERAL OIL/PET HY-PHL TOPICAL OINTMENT 454 GM JAR TP SCH (11:15)
[2023-05-17] MEDS: ACETAMINOPHEN 325 MG TABLET (FP) PO PRN (18:14)
[2023-05-17] MEDS: DAPTOMYCIN IVPB SCH (21:33)
[2023-05-17] MEDS: SODIUM CHLORIDE IVPB SCH (21:33)
[2023-05-17] MEDS: DOCUSATE SODIUM 100 MG CAPSULE (FP) PO SCH (21:34)
[2023-05-18] MEDS: INSULIN SLIDING SCALE (NOVOLOG) 1 VIAL SQ SCH ×4 (06:05→21:42)
[2023-05-18] MEDS: AZTREONAM 1 GM in DEXTROSE 5%-WATER - 50 ML IVPB SCH ×3 (06:08→23:21)
[2023-05-18] MEDS: amLODIPine BESYLATE 5 MG TABLET (FP) PO SCH (10:20)
[2023-05-18] MEDS: LOSARTAN POTASSIUM 50 MG TABLET PO SCH (10:20)
[2023-05-18] MEDS: AMINO ACIDS/PROTEIN HYDROLYS 30 ML LIQUID.PKT PO SCH ×2 (10:20→18:08)
[2023-05-18] MEDS: GABAPENTIN 100 MG CAPSULE PO SCH (10:20)
[2023-05-18] MEDS: MULTIVITAMINS (DAILY MVI) TABLET (FP) PO SCH (10:21)
[2023-05-18] MEDS: MINERAL OIL/PET HY-PHL TOPICAL OINTMENT 454 GM JAR TP SCH (10:22)
[2023-05-18] MEDS: DEXTROSE 5%-WATER - 1,000 ML IV SCH (10:22)
[2023-05-18] MEDS: COLLAGENASE CLOSTRIDIUM HIST. 30 GRAMS TUBE TP SCH (10:23)
[2023-05-18] MEDS: BUDESONIDE/FORMETEROL FUMARATE 160/4.5 mcg INHALER IH SCH ×2 (10:23→21:42)
[2023-05-18] MEDS: ACETAMINOPHEN 325 MG TABLET (FP) PO PRN (18:24)
[2023-05-18] MEDS: DAPTOMYCIN IVPB SCH (20:31)
[2023-05-18] MEDS: SODIUM CHLORIDE IVPB SCH (20:31)
[2023-05-18] MEDS: DOCUSATE SODIUM 100 MG CAPSULE (FP) PO SCH (21:42)
[2023-05-19] MEDS: INSULIN SLIDING SCALE (NOVOLOG) 1 VIAL SQ SCH ×4 (06:12→21:52)
[2023-05-19] MEDS: AZTREONAM 1 GM in DEXTROSE 5%-WATER - 50 ML IVPB SCH (06:41)
[2023-05-19 07:53] LABS: EOS % 19.3 % (0-4.5); HEMOGLOBIN 7.6 GM/dL (11.7-16.9); LYMPH % 14.5 % (8-40); MCH 25.1 pg (25.7-33.7); MCHC 31.6 g/dl (32.0-35.9); MEAN CELL VOLUME 79.5 fl (80-96); MEAN PLT VOLUME 6.5 fl (7.5-11.1); MONO % 7.7 % (3.8-10.2); NEUT % 57.5 % (42.8-82.8); PLATELET COUNT 463 10^3/uL (134-434); RBC 3.02 M/mm3 (4.00-5.60); RDW 28.3 % (11.9-15.9); WHITE BLOOD COUNT 9.3 K/mm3 (4.0-10.0)
[2023-05-19 08:29] LABS: POTASSIUM 5.8 mmol/L (3.5-5.1)
[2023-05-19 08:30] LABS: ALBUMIN 1.7 g/dl (3.4-5.0); CALCIUM 8.3 mg/dL (8.5-10.1)
[2023-05-19 08:32] LABS: BLOOD UREA NITROGEN 56.1 mg/dL (7-18)
[2023-05-19 08:33] LABS: CREATININE 1.4 mg/dL (0.55-1.3)
[2023-05-19 08:36] LABS: BILIRUBIN,TOTAL 0.1 mg/dL (0.2-1)
[2023-05-19 09:23] LABS: ANISOCYTOSIS 1+; MACROCYTOSIS 1+
[2023-05-19] MEDS: AMINO ACIDS/PROTEIN HYDROLYS 30 ML LIQUID.PKT PO SCH ×2 (10:05→18:58)
[2023-05-19] MEDS: amLODIPine BESYLATE 5 MG TABLET (FP) PO SCH (10:06)
[2023-05-19] MEDS: COLLAGENASE CLOSTRIDIUM HIST. 30 GRAMS TUBE TP SCH (10:06)
[2023-05-19] MEDS: GABAPENTIN 100 MG CAPSULE PO SCH (10:06)
[2023-05-19] MEDS: BUDESONIDE/FORMETEROL FUMARATE 160/4.5 mcg INHALER IH SCH ×2 (10:06→23:48)
[2023-05-19] MEDS: MINERAL OIL/PET HY-PHL TOPICAL OINTMENT 454 GM JAR TP SCH (10:06)
[2023-05-19] MEDS: MULTIVITAMINS (DAILY MVI) TABLET (FP) PO SCH (10:06)
[2023-05-19] MEDS: LOSARTAN POTASSIUM 50 MG TABLET PO SCH (10:06)
[2023-05-19] MEDS: DEXTROSE 5%-WATER - 1,000 ML IV SCH ×2 (10:07→13:52)
[2023-05-19] MEDS ORDERED: SODIUM CHLORIDE 0.45% 1,000 ML IV SCH (13:15)
[2023-05-19] MEDS: SODIUM ZIRCONIUM CYCLOSILICATE (LOKELMA) 5 GM PACKET PO SCH ×2 (13:51→21:52)
[2023-05-19] MEDS ORDERED: ACETAMINOPHEN 325 MG TABLET (FP) PO PRN (17:55)
[2023-05-19] MEDS: SODIUM CHLORIDE IVPB SCH (18:59)
[2023-05-19] MEDS: DAPTOMYCIN IVPB SCH (18:59)
[2023-05-19] MEDS: DOCUSATE SODIUM 100 MG CAPSULE (FP) PO SCH (21:51)
[2023-05-20] MEDS: INSULIN SLIDING SCALE (NOVOLOG) 1 VIAL SQ SCH ×3 (06:01→17:55)
[2023-05-20 10:17] LABS: POTASSIUM 5.3 mmol/L (3.5-5.1)
[2023-05-20] MEDS: MULTIVITAMINS (DAILY MVI) TABLET (FP) PO SCH (10:17)
[2023-05-20] MEDS: AMINO ACIDS/PROTEIN HYDROLYS 30 ML LIQUID.PKT PO SCH ×2 (10:17→18:11)
[2023-05-20] MEDS: SODIUM ZIRCONIUM CYCLOSILICATE (LOKELMA) 5 GM PACKET PO SCH ×2 (10:17→14:56)
[2023-05-20] MEDS: GABAPENTIN 100 MG CAPSULE PO SCH (10:17)
[2023-05-20] MEDS: amLODIPine BESYLATE 5 MG TABLET (FP) PO SCH (10:17)
[2023-05-20] MEDS: DEXTROSE 5%-WATER - 1,000 ML IV SCH ×2 (10:28→17:54)
[2023-05-20 10:29] LABS: CREATININE 1.4 mg/dL (0.55-1.3)
[2023-05-20 10:30] LABS: BILIRUBIN,TOTAL 0.2 mg/dL (0.2-1)
[2023-05-20 10:36] LABS: ALBUMIN 1.7 g/dl (3.4-5.0); BLOOD UREA NITROGEN 57.6 mg/dL (7-18); CALCIUM 8.7 mg/dL (8.5-10.1)
[2023-05-20] MEDS: MINERAL OIL/PET HY-PHL TOPICAL OINTMENT 454 GM JAR TP SCH (14:51)
[2023-05-20] MEDS: COLLAGENASE CLOSTRIDIUM HIST. 30 GRAMS TUBE TP SCH (14:51)
[2023-05-20] MEDS: BUDESONIDE/FORMETEROL FUMARATE 160/4.5 mcg INHALER IH SCH (14:52)
[2023-05-20] MEDS: DAPTOMYCIN IVPB SCH (18:11)
[2023-05-20] MEDS: SODIUM CHLORIDE IVPB SCH (18:11)
[2023-05-20] MEDS: DOCUSATE SODIUM 100 MG CAPSULE (FP) PO SCH (21:50)
[2023-05-21] MEDS: INSULIN SLIDING SCALE (NOVOLOG) 1 VIAL SQ SCH ×5 (00:11→21:28)
[2023-05-21] MEDS: BUDESONIDE/FORMETEROL FUMARATE 160/4.5 mcg INHALER IH SCH ×3 (00:30→21:28)
[2023-05-21] MEDS: DEXTROSE 5%-WATER - 1,000 ML IV SCH ×2 (05:27→15:27)
[2023-05-21] MEDS: SODIUM ZIRCONIUM CYCLOSILICATE (LOKELMA) 5 GM PACKET PO SCH (09:45)
[2023-05-21] MEDS: amLODIPine BESYLATE 5 MG TABLET (FP) PO SCH (09:45)
[2023-05-21] MEDS: MINERAL OIL/PET HY-PHL TOPICAL OINTMENT 454 GM JAR TP SCH (09:45)
[2023-05-21] MEDS: MULTIVITAMINS (DAILY MVI) TABLET (FP) PO SCH (09:45)
[2023-05-21] MEDS: GABAPENTIN 100 MG CAPSULE PO SCH (09:45)
[2023-05-21] MEDS: AMINO ACIDS/PROTEIN HYDROLYS 30 ML LIQUID.PKT PO SCH ×2 (09:45→17:15)
[2023-05-21] MEDS: COLLAGENASE CLOSTRIDIUM HIST. 30 GRAMS TUBE TP SCH (09:46)
[2023-05-21] MEDS: DAPTOMYCIN IVPB SCH (21:26)
[2023-05-21] MEDS: SODIUM CHLORIDE IVPB SCH (21:26)
[2023-05-21] MEDS: DOCUSATE SODIUM 100 MG CAPSULE (FP) PO SCH (21:27)
[2023-05-22] MEDS: INSULIN SLIDING SCALE (NOVOLOG) 1 VIAL SQ SCH ×4 (06:04→21:59)
[2023-05-22] MEDS: AMINO ACIDS/PROTEIN HYDROLYS 30 ML LIQUID.PKT PO SCH ×2 (09:01→17:17)
[2023-05-22 09:17] LABS: HEMOGLOBIN 7.6 GM/dL (11.7-16.9); MCH 25.8 pg (25.7-33.7); MCHC 32.9 g/dl (32.0-35.9); MEAN CELL VOLUME 78.6 fl (80-96); MEAN PLT VOLUME 6.5 fl (7.5-11.1); PLATELET COUNT 402 10^3/uL (134-434); RBC 2.93 M/mm3 (4.00-5.60); RDW 28.1 % (11.9-15.9); WHITE BLOOD COUNT 8.6 K/mm3 (4.0-10.0)
[2023-05-22 09:25] LABS: POTASSIUM 3.8 mmol/L (3.5-5.1)
[2023-05-22 09:27] LABS: ALBUMIN 1.7 g/dl (3.4-5.0); CALCIUM 8.1 mg/dL (8.5-10.1); MAGNESIUM 1.8 mg/dL (1.8-2.4)
[2023-05-22 09:28] LABS: BLOOD UREA NITROGEN 55.4 mg/dL (7-18)
[2023-05-22 09:31] LABS: CREATININE 1.4 mg/dL (0.55-1.3)
[2023-05-22 09:32] LABS: BILIRUBIN,TOTAL 0.2 mg/dL (0.2-1); TOT PROT 5.8 g/dl (6.4-8.2)
[2023-05-22] MEDS: GABAPENTIN 100 MG CAPSULE PO SCH (10:59)
[2023-05-22] MEDS: SODIUM ZIRCONIUM CYCLOSILICATE (LOKELMA) 5 GM PACKET PO SCH (10:59)
[2023-05-22] MEDS: MULTIVITAMINS (DAILY MVI) TABLET (FP) PO SCH (10:59)
[2023-05-22] MEDS: amLODIPine BESYLATE 5 MG TABLET (FP) PO SCH (10:59)
[2023-05-22] MEDS: BUDESONIDE/FORMETEROL FUMARATE 160/4.5 mcg INHALER IH SCH ×2 (11:00→21:57)
[2023-05-22] MEDS: MINERAL OIL/PET HY-PHL TOPICAL OINTMENT 454 GM JAR TP SCH (11:00)
[2023-05-22] MEDS: COLLAGENASE CLOSTRIDIUM HIST. 30 GRAMS TUBE TP SCH (11:01)
[2023-05-22] MEDS: DEXTROSE 5%-WATER - 1,000 ML IV SCH (17:21)
[2023-05-22] MEDS: DOCUSATE SODIUM 100 MG CAPSULE (FP) PO SCH (21:56)
[2023-05-23] MEDS: INSULIN SLIDING SCALE (NOVOLOG) 1 VIAL SQ SCH ×4 (06:22→21:20)
[2023-05-23] MEDS: DAPTOMYCIN IVPB SCH ×2 (07:04→18:03)
[2023-05-23] MEDS: SODIUM CHLORIDE IVPB SCH ×2 (07:04→18:03)
[2023-05-23] MEDS: AMINO ACIDS/PROTEIN HYDROLYS 30 ML LIQUID.PKT PO SCH ×2 (08:57→17:55)
[2023-05-23 10:05] LABS: ALBUMIN 1.8 g/dl (3.4-5.0); BLOOD UREA NITROGEN 54.3 mg/dL (7-18); CALCIUM 8.1 mg/dL (8.5-10.1)
[2023-05-23 10:08] LABS: CREATININE 1.3 mg/dL (0.55-1.3)
[2023-05-23 10:10] LABS: BILIRUBIN,TOTAL 0.1 mg/dL (0.2-1)
[2023-05-23] MEDS: GABAPENTIN 100 MG CAPSULE PO SCH (10:38)
[2023-05-23] MEDS: amLODIPine BESYLATE 5 MG TABLET (FP) PO SCH (10:38)
[2023-05-23] MEDS: MULTIVITAMINS (DAILY MVI) TABLET (FP) PO SCH (10:38)
[2023-05-23] MEDS: MINERAL OIL/PET HY-PHL TOPICAL OINTMENT 454 GM JAR TP SCH (10:39)
[2023-05-23] MEDS: COLLAGENASE CLOSTRIDIUM HIST. 30 GRAMS TUBE TP SCH (10:40)
[2023-05-23] MEDS: BUDESONIDE/FORMETEROL FUMARATE 160/4.5 mcg INHALER IH SCH ×2 (10:40→21:20)
[2023-05-23] MEDS: DEXTROSE 5%-WATER - 1,000 ML IV SCH ×2 (11:49→13:10)
[2023-05-23] MEDS: DOCUSATE SODIUM 100 MG CAPSULE (FP) PO SCH (21:15)
[2023-05-24] MEDS: DEXTROSE 5%-WATER - 1,000 ML IV SCH ×2 (01:53→15:22)
[2023-05-24] MEDS: INSULIN SLIDING SCALE (NOVOLOG) 1 VIAL SQ SCH ×4 (06:27→23:40)
[2023-05-24] MEDS: AMINO ACIDS/PROTEIN HYDROLYS 30 ML LIQUID.PKT PO SCH ×2 (10:12→17:28)
[2023-05-24] MEDS: MULTIVITAMINS (DAILY MVI) TABLET (FP) PO SCH (10:12)
[2023-05-24] MEDS: amLODIPine BESYLATE 5 MG TABLET (FP) PO SCH (10:12)
[2023-05-24] MEDS: GABAPENTIN 100 MG CAPSULE PO SCH (10:12)
[2023-05-24] MEDS: MINERAL OIL/PET HY-PHL TOPICAL OINTMENT 454 GM JAR TP SCH (10:13)
[2023-05-24] MEDS: BUDESONIDE/FORMETEROL FUMARATE 160/4.5 mcg INHALER IH SCH ×2 (10:13→22:41)
[2023-05-24] MEDS: COLLAGENASE CLOSTRIDIUM HIST. 30 GRAMS TUBE TP SCH (10:14)
[2023-05-24] MEDS: SODIUM CHLORIDE IVPB SCH (18:31)
[2023-05-24] MEDS: DAPTOMYCIN IVPB SCH (18:31)
[2023-05-24] MEDS: DOCUSATE SODIUM 100 MG CAPSULE (FP) PO SCH (22:39)
[2023-05-25] MEDS: INSULIN SLIDING SCALE (NOVOLOG) 1 VIAL SQ SCH ×4 (06:01→22:25)
[2023-05-25] MEDS: DEXTROSE 5%-WATER - 1,000 ML IV SCH (06:51)
[2023-05-25] MEDS: AMINO ACIDS/PROTEIN HYDROLYS 30 ML LIQUID.PKT PO SCH ×2 (09:08→17:17)
[2023-05-25] MEDS: amLODIPine BESYLATE 5 MG TABLET (FP) PO SCH (10:34)
[2023-05-25] MEDS: GABAPENTIN 100 MG CAPSULE PO SCH (10:34)
[2023-05-25] MEDS: MULTIVITAMINS (DAILY MVI) TABLET (FP) PO SCH (10:34)
[2023-05-25] MEDS: BUDESONIDE/FORMETEROL FUMARATE 160/4.5 mcg INHALER IH SCH ×2 (10:34→22:25)
[2023-05-25] MEDS: MINERAL OIL/PET HY-PHL TOPICAL OINTMENT 454 GM JAR TP SCH (10:35)
[2023-05-25] MEDS: COLLAGENASE CLOSTRIDIUM HIST. 30 GRAMS TUBE TP SCH (10:36)
[2023-05-25] MEDS: DOCUSATE SODIUM 100 MG CAPSULE (FP) PO SCH (22:22)
[2023-05-26] MEDS: INSULIN SLIDING SCALE (NOVOLOG) 1 VIAL SQ SCH ×4 (07:25→22:30)
[2023-05-26] MEDS: AMINO ACIDS/PROTEIN HYDROLYS 30 ML LIQUID.PKT PO SCH ×2 (08:56→16:54)
[2023-05-26] MEDS: GABAPENTIN 100 MG CAPSULE PO SCH (09:56)
[2023-05-26] MEDS: MULTIVITAMINS (DAILY MVI) TABLET (FP) PO SCH (09:56)
[2023-05-26] MEDS: amLODIPine BESYLATE 5 MG TABLET (FP) PO SCH (09:56)
[2023-05-26] MEDS: MINERAL OIL/PET HY-PHL TOPICAL OINTMENT 454 GM JAR TP SCH (09:57)
[2023-05-26] MEDS: BUDESONIDE/FORMETEROL FUMARATE 160/4.5 mcg INHALER IH SCH ×2 (09:57→22:32)
[2023-05-26] MEDS: COLLAGENASE CLOSTRIDIUM HIST. 30 GRAMS TUBE TP SCH (09:58)
[2023-05-26 10:55] LABS: POTASSIUM 4.5 mmol/L (3.5-5.1)
[2023-05-26 11:10] LABS: BLOOD UREA NITROGEN 54.8 mg/dL (7-18); CALCIUM 8.5 mg/dL (8.5-10.1)
[2023-05-26 11:11] LABS: ALBUMIN 1.9 g/dl (3.4-5.0)
[2023-05-26 11:13] LABS: CREATININE 1.3 mg/dL (0.55-1.3)
[2023-05-26 11:15] LABS: BILIRUBIN,TOTAL 0.2 mg/dL (0.2-1)
[2023-05-26 11:18] LABS: TOT PROT 6.3 g/dl (6.4-8.2)
[2023-05-26] MEDS ORDERED: DEXTROSE 5%-WATER - 1,000 ML IV SCH (13:45)
[2023-05-26] MEDS: DOCUSATE SODIUM 100 MG CAPSULE (FP) PO SCH (22:31)
[2023-05-27] MEDS: INSULIN SLIDING SCALE (NOVOLOG) 1 VIAL SQ SCH ×2 (06:49→11:37)
[2023-05-27] MEDS: AMINO ACIDS/PROTEIN HYDROLYS 30 ML LIQUID.PKT PO SCH (09:10)
[2023-05-27] MEDS: GABAPENTIN 100 MG CAPSULE PO SCH (10:13)
[2023-05-27] MEDS: MINERAL OIL/PET HY-PHL TOPICAL OINTMENT 454 GM JAR TP SCH (10:14)
[2023-05-27] MEDS: amLODIPine BESYLATE 5 MG TABLET (FP) PO SCH (10:14)
[2023-05-27] MEDS: MULTIVITAMINS (DAILY MVI) TABLET (FP) PO SCH (10:14)
[2023-05-27] MEDS: COLLAGENASE CLOSTRIDIUM HIST. 30 GRAMS TUBE TP SCH (10:15)
[2023-05-27] MEDS: BUDESONIDE/FORMETEROL FUMARATE 160/4.5 mcg INHALER IH SCH (10:15)
[2023-05-27 11:01] VITALS: RESP 18
[2023-05-27 15:49] VITALS: BP 132/52; PULSE 68; TEMP 97.9
== END 2023-05-27 16:47 | disposition home health service (06) | DRG 698 ==
LOC: JER 14:07 → JERBED 18:52 → OBSVTOIN 21:51 → J8W 04-15 00:28 → JICU 04-27 13:54 → J4S 04-28 17:36 → J4W 04-30 21:08 → JICU 05-01 14:50 → J4S 05-12 14:54 → J5S 05-19 17:34
PROVIDERS: ADMIT Internal Medicine; ATTEND Internal Medicine
PROC: 30233N1 Transfusion of Nonautologous Red Blood Cells into Peripheral Vein, Percutaneous Approach (ICD-10-PCS; 2023-04-15)
PROC: 0TP98DZ Removal of Intraluminal Device from Ureter, Via Natural or Artificial Opening Endoscopic (ICD-10-PCS; 2023-04-22)
PROC: 0T9130Z Drainage of Left Kidney with Drainage Device, Percutaneous Approach (ICD-10-PCS; 2023-04-22)
PROC: 0T9030Z Drainage of Right Kidney with Drainage Device, Percutaneous Approach (ICD-10-PCS; 2023-04-22)
PROC: 0TCB8ZZ Extirpation of Matter from Bladder, Via Natural or Artificial Opening Endoscopic (ICD-10-PCS; principal; 2023-04-22 15:00)
PROC: 0T2BX0Z Change Drainage Device in Bladder, External Approach (ICD-10-PCS; 2023-04-26)
PROC: 3E1K88Z Irrigation of Genitourinary Tract using Irrigating Substance, Via Natural or Artificial Opening Endoscopic (ICD-10-PCS; 2023-04-26)
PROC: 0BH17EZ Insertion of Endotracheal Airway into Trachea, Via Natural or Artificial Opening (ICD-10-PCS; 2023-05-01)
PROC: 5A1945Z Respiratory Ventilation, 24-96 Consecutive Hours (ICD-10-PCS; 2023-05-01)
PROC: 05HM33Z Insertion of Infusion Device into Right Internal Jugular Vein, Percutaneous Approach (ICD-10-PCS; 2023-05-01)
PROC: B543ZZA Ultrasonography of Right Jugular Veins, Guidance (ICD-10-PCS; 2023-05-01)
DX: T83.518A Infection and inflammatory reaction due to other urinary catheter, initial encounter (principal); A41.81 Sepsis due to Enterococcus; E43 Unspecified severe protein-calorie malnutrition; J69.0 Pneumonitis due to inhalation of food and vomit; J96.01 Acute respiratory failure with hypoxia; J96.02 Acute respiratory failure with hypercapnia; R53.2 Functional quadriplegia; N13.6 Pyonephrosis; J98.11 Atelectasis; J90 Pleural effusion, not elsewhere classified; E87.20 Acidosis, unspecified; N17.9 Acute kidney failure, unspecified; E87.0 Hyperosmolality and hypernatremia; D62 Acute posthemorrhagic anemia; T17.390A Other foreign object in larynx causing asphyxiation, initial encounter; I16.0 Hypertensive urgency; Y73.8 Miscellaneous gastroenterology and urology devices associated with adverse incidents, not elsewhere classified; D64.9 Anemia, unspecified; E87.5 Hyperkalemia; Z93.3 Colostomy status; L89.152 Pressure ulcer of sacral region, stage 2; F03.90 Unspecified dementia, unspecified severity, without behavioral disturbance, psychotic disturbance, mood disturbance, and anxiety; N31.9 Neuromuscular dysfunction of bladder, unspecified; K40.90 Unilateral inguinal hernia, without obstruction or gangrene, not specified as recurrent; I12.9 Hypertensive chronic kidney disease with stage 1 through stage 4 chronic kidney disease, or unspecified chronic kidney disease; E11.22 Type 2 diabetes mellitus with diabetic chronic kidney disease; N18.30 Chronic kidney disease, stage 3 unspecified; Z68.21 Body mass index [BMI] 21.0-21.9, adult; Z93.59 Other cystostomy status; Z85.51 Personal history of malignant neoplasm of bladder; R31.0 Gross hematuria; N48.89 Other specified disorders of penis; B96.4 Proteus (mirabilis) (morganii) as the cause of diseases classified elsewhere
CPT/HCPCS: 36415; 36430; 36511; 36600; 49406; 50432; 71045-TC-FY; 71250-TC; 74176-TC; 76000-TC-FY; 76705-TC; 76775-TC; 80048; 80053; 81003; 82272; 82550; 82803; 82962; 83605; 83735; 84100; 85025; 85027; 85610; 86850; 86900; 86901; 86922; 87040; 87070; 87075; 87077; 87086; 87102; 87116; 87186; 87205; 87206; 87210; 87635; 94002; 94640; 94660; 94760; 97162-GP; 99285-25; C1729; C1769; G0378; J0878; P9038; P9058

== ENCOUNTER 2023-07-22 13:36 | Emergency (ER) | payer MEDICARE, OTHER ==
[2023-07-22 14:20] VITALS: BMI 20.7
[2023-07-22 15:20] LABS: EPI CELLS >36 /uL (0-25.1); HYALINE CASTS 3 /uL (0-3.1); PH,URINE 8.5 (5.0-8.0); URINE APPEARANCE TURBID; URINE BACTERIA >9,000 /uL (0-1359); URINE BILIRUBIN NEGATIVE (NEGATIVE); URINE COLOR YELLOW; URINE GLUCOSE (UA) NEGATIVE (NEGATIVE); URINE KETONE NEGATIVE (NEGATIVE); URINE LEUK ESTERASE 3+ (NEGATIVE); URINE NITRITE NEGATIVE (NEGATIVE); URINE PROTEIN 3+ (NEGATIVE); URINE RBC 402 /uL (0-23.9); URINE UROBILINOGEN 0.2 mg/dL (0.2-1.0); URINE WBC 1960 /uL (0-25.8)
[2023-07-22 15:21] LABS: YEAST NEGATIVE (NEGATIVE)
[2023-07-22 15:38] VITALS: BP 142/49; PULSE 63; RESP 16; TEMP 98.3
== END 2023-07-22 18:26 | disposition home or self-care (01) ==
LOC: JER 13:36
DX: I10 Essential (primary) hypertension (principal)
CPT/HCPCS: 81003; 87086; 87186; 99283-25

== ENCOUNTER 2023-09-30 16:41 | Observation (INO) | payer MEDICARE, OTHER ==
[2023-09-30 17:25] VITALS: BMI 23.3
[2023-09-30] MEDS ORDERED: SODIUM CHLORIDE 0.9% 500 ML INFUS.BAG IV ONE (18:07)
[2023-09-30] MEDS ORDERED: DEXTROSE 5%-0.45% SALINE 1,000 ML IV SCH (18:15)
[2023-09-30 18:29] LABS: BASO % 0.9 % (0-2.0); HEMATOCRIT 20.7 % (35.4-49); MCH 21.3 pg (25.7-33.7); MEAN CELL VOLUME 68.8 fl (80-96); MONO % 6.1 % (3.8-10.2); PLATELET COUNT 509 10^3/uL (134-434); RDW 18.5 % (11.9-15.9)
[2023-09-30 18:32] LABS: MEAN PLT VOLUME 5.3 fl (7.5-11.1)
[2023-09-30 18:36] LABS: HEMOGLOBIN 6.4 GM/dL (11.7-16.9)
[2023-09-30 18:37] LABS: INR 1.13 (0.83-1.09); PROTHROMBIN TIME (PATIENT) 13.1 SEC (9.7-13.0)
[2023-09-30 18:40] LABS: ACTIVATED PTT 29.3 SECONDS (25.2-36.5)
[2023-09-30 18:44] LABS: POTASSIUM 5.2 mmol/L (3.5-5.1)
[2023-09-30 18:47] LABS: CALCIUM 8.8 mg/dL (8.5-10.1)
[2023-09-30 18:48] LABS: ALBUMIN 1.9 g/dl (3.4-5.0); BLOOD UREA NITROGEN 30.4 mg/dL (7-18)
[2023-09-30 18:53] LABS: BILIRUBIN,TOTAL 0.2 mg/dL (0.2-1); TOT PROT 7.4 g/dl (6.4-8.2)
[2023-10-01] MEDS ORDERED: GABAPENTIN 100 MG CAPSULE PO SCH (10:15)
[2023-10-01] MEDS ORDERED: amLODIPine BESYLATE 5 MG TABLET (FP) PO SCH (10:15)
[2023-10-01] MEDS ORDERED: SODIUM ZIRCONIUM CYCLOSILICATE (LOKELMA) 5 GM PACKET PO SCH (17:00)
[2023-10-01 21:16] VITALS: BP 164/87; PULSE 76; RESP 20; TEMP 98.4
== END 2023-10-02 01:00 | disposition home or self-care (01) ==
LOC: JER 16:41 → JERBED 17:51 → J8W 10-01 04:44
PROVIDERS: ADMIT Internal Medicine; ATTEND Internal Medicine
PROC: 3E0337Z Introduction of Electrolytic and Water Balance Substance into Peripheral Vein, Percutaneous Approach (ICD-10-PCS; principal; 2023-09-30)
PROC: 0T25X0Z Change Drainage Device in Kidney, External Approach (ICD-10-PCS; 2023-10-01)
DX: T83.9XXA Unspecified complication of genitourinary prosthetic device, implant and graft, initial encounter (principal); X58.XXXA Exposure to other specified factors, initial encounter; Y93.89 Activity, other specified; Y92.89 Other specified places as the place of occurrence of the external cause; I10 Essential (primary) hypertension; D64.9 Anemia, unspecified; Z85.51 Personal history of malignant neoplasm of bladder; Z87.891 Personal history of nicotine dependence; Z88.0 Allergy status to penicillin; Z88.8 Allergy status to other drugs, medicaments and biological substances; K92.9 Disease of digestive system, unspecified; G82.50 Quadriplegia, unspecified; Z93.6 Other artificial openings of urinary tract status
CPT/HCPCS: 36415; 36430; 50435; 71045-TC-FY; 80053; 82272; 85025; 85610; 85730; 86850; 86900; 86901; 86922; 93005; 93010; 96360; 99285-25; G0378; P9058